=== PATIENT | male | born 1955 | race African-American/Black ===

== ENCOUNTER 2019-06-09 17:15 | Inpatient (IN) | payer MEDICARE ==
[~2019-06-09] VITALS: Ht 182.9 cm; Wt 81.6 kg
[~2019-06-09 17:15] MED LIST: CALCIUM ACETAT667 M1 PO; FOSRENOL1000 MG PO; GABAPENTIN100 MG PO; METOPROLOL TAR100 MG PO; NOVOLOG100 UNITS1 SQ; PLAVIX75 MG PO; SENSIPAR60 MG PO; ULTRAM50 MG PO
--- OUTSIDE RECORDS SUMMARY | 2019-06-09 17:54 | XMS REPORT ---
Author Author [facility] Address Unknown Phone Unavailable Care Team Providers Care Clinical Applications Manager Name Role Phone ANGELITA ESQUIVEL Unavailable Unavailable Problems This patient has no known problems. Allergies, Adverse Reactions, Alerts This patient has no known allergies or adverse reactions. Medications This patient has no known medications. Results Test Description Test Time Test Comments Text Results Atomic Results Result Comments FOOT LEFT AP LAT 2019-01-01 20:40:00 [facility] [address] [id number] Patient Name: DUONG HERNANDEZ MR #: [id number] : 1955 Age/Sex: 63/M Req #: [id number] [facility] Physician: ANGELITA ESQUIVEL MD Ordered by: SAVANNA MO DPHam Report #: [id number] Location: MED/SURG2 Room/Bed: [facility] Procedure: [id number] DX/FOOT LEFT AP LAT Exam Date: 01/01/19 Exam Time: 2024 REPORT STATUS: Signed Exam: Foot 2 views History: Postop bunionectomy Comparison: December 29, 2018 Findings: 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 Overlying cast. Impression: Postoperative change to the forefoot Signed by: Dr. Alphonse Yates M.D. on 01/01/2019 8:41 PM Dictated By: ALPHONSE YATES MD 40 Transcribed By: FELECIA on 01/01/192040 COPY TO: SAVANNA MO DPM CHEST 2 VIEWS 2018-12-31 11:23:00 [address] [address] Patient Name: DUONG HERNANDEZ MR #: [id number] : 1955 Age/Sex: 63/M Req #: [id number] Adm Physician: ANGELITA ESQUIVEL MD Ordered by: SAVANNA MO DPM Report #: [id number] Location: MED/SURG2 Room/Bed: [facility] Procedure: [id number] DX/CHEST 2 VIEWS Exam Date: Exam Time: REPORT STATUS: Signed EXAMINATION: CHEST 2 VIEWS INDICATION: Pre-operative COMPARISON: None FINDINGS: LINES/TUBES:None LUNGS:The lungs are well- inflated. No focal consolidation or pulmonary edema. PLEURA:No pleural effusion or pneumothorax. MEDIASTINUM:The cardiomediastinal silhouette appears normal in size and shape. BONES/SOFT TISSUES:No acute osseous injury. Partially visualized cervical spine fusion hardware and surgical clips in the soft tissues of the neck. Superior mediastinal cerclage wires, the upper of which is fractured at 2 sites. Surgical clips also overlie the anterior mediastinum. ABDOMEN:No free air under the diaphragm. IMPRESSION: No focal pneumonia or pulmonary edema. Signed by: Gonzalez Mahan MD on 12/31/2018 11:28 AM Dictated By: GONZALEZ MAHAN MD 27 Transcribed By: FELECIA on 12/31/181127 COPY TO: SAVANNA MO DPM FOOT LEFT AP LAT 2018-12-29 15:14:00 [facility] [address] [address] Patient Name: DUONG HERNANDEZ MR #: [id number] : 1955 Age/Sex: 63/M Req #: [id number] Adm Physician: ANGELITA ESQUIVEL MD Ordered by: ANUP ZEE MD Report #: [id number] Location: [facility] Room/Bed: [address] [address] Procedure: [id number] DX/FOOT LEFT AP LAT Exam Date: 12/29/18 Exam Time: 1455 REPORT STATUS: Signed EXAMINATION: FOOT LEFT AP LAT INDICATION: Osteomyelitis COMPARISON: None FINDINGS: No acute fracture or dislocation. There is soft tissue defect of the distal great toe with associated osteopenia of the distal phalanx. No specific radiographic evidence of osteomyelitis. Overlying gauze material obscures fine bony detail. Diffuse atherosclerotic arterial calcifications. IMPRESSION: Distal great toe soft tissue defect with underlying distal phalanx osteopenia. No specific radiographic evidence of osteomyelitis. No acute fracture or dislocation. Signed by: Gonzalez Mahan MD on 12/29/2018 3:17 PM Dictated By: GONZALEZ MAHAN MD 16 Transcribed By: FELECIA on 12/29/181516 COPY TO: ANUP ZEE MD
[2019-06-09 18:11] VITALS: BP 213/99
--- NOTE | 2019-06-09 18:24 | NUR ---
PATIENT ARRIVED TO UNIT AT 1802 VIA WHEELCHAIR. ACYANOTIC. AAOX3. NO DISTRESS NOTED. ASSISTED TO BED IN ROOM 207. SIDERAILS UP X3. CALL LIGHT IN REACH. BED LOW.
[2019-06-09] MEDS ORDERED: ONDANSETRON HCL INJ 2MG/ML 2ML 2 MG/ML VIAL IV PRN (18:45)
--- NOTE | 2019-06-09 19:20 | NUR ---
REPORT RECEIVED BY ONCOMING NURSE. PT AWAKE ALERT. ACYANOTIC. NO DISTRESS NOTED. Chinyere SPENCE NP CURRENTLY AT PATIENT'S BEDSIDE. ONCOMING NURSE TO COMPLETE ADMISSION.
--- NOTE | 2019-06-09 19:35 | NUR ---
Patient received sitting in bed. AAO x 4. Patient had no complaints of pain. Respirations even and non-labored. Admission history obtained. Initial physical assessment performed. Wound dressing noted on bilateral feet. Fall precautions implemented. Patient oriented to room, call light and plan of care. Patient instructed to call for assistance when needed. Call light within reach.
[2019-06-09 20:15] VITALS: BP 213/99
--- NOTE | 2019-06-09 20:24 | NUR ---
Alcides ([phone]) notified of patient's dialysis appointment for tomorrow. Spoke to Mona .
[2019-06-09] MEDS ORDERED: SODIUM CHLORIDE 0.9% 250ML 250 ML ONE (20:39)
[2019-06-09] MEDS: HYDROCODONE/APAP 5MG-325MG TAB PO PRN (20:48)
[2019-06-09 21:00] VITALS: BP 213/99
[2019-06-09] MEDS ORDERED: VANCOMYCIN 1GM/NS 250 ML 250 ML IV SCH (21:00)
--- NOTE | 2019-06-09 21:35 | NUR ---
Patient informed of hemodialysis scheduled for tomorrow morning. Patient verbalized understanding and voluntarily signed "Disclosure and Consent" form.
[2019-06-09 21:50] VITALS: BP 207/96
--- NOTE | 2019-06-09 22:38 | NUR ---
Patient complained of pain to his right foot not getting better after administration of [place] [address] Da Silva notified. New order received for Morphine 2 mg IV x 1.
[2019-06-09] MEDS ORDERED: MORPHINE SULFATE 2 MG/ML SYR 1ML IV ONE (22:45)
--- NOTE | 2019-06-09 22:48 | Diagnostic Imaging Report ---
Foot complete CPT code: 13060 Indication: Left foot wound with drainage ^ABSCESS, GANGRENE ^[id number] ^2200 Technique: A.P., oblique and lateral views of the left foot obtained. Comparison: Foot x-rays 12/29/2018 Findings: The area of wound was not indicated or marked. Amputation of the great toe has been performed. Osteotomy margin is at the diaphysis of the proximal phalanx. The osteotomy margin is sharp. No skin ulceration. Calcaneus is intact and normal in morphology. The midfoot is intact. No evidence of displaced fracture or dislocation involving any of the digits. Soft tissue swelling of the second and third digits. The distal tuft of the second digit is somewhat irregular on the oblique image. The distal tuft of the third digit is well corticated. Digits 4 and 5 are normal in appearance. Diffuse vascular calcifications. No radiopaque foreign bodies. IMPRESSION: 1. Status post partial amputation of the great toe. 2. Cortical irregularity of the distal tuft of the second digit with soft tissue swelling. Please correlate with area of ulceration. Osteomyelitis cannot be excluded. Signed by: Dr. Adán Santizo MD on 06/09/2019 10:45 PM
[2019-06-09] MEDS: HYDRALAZINE HCL 20 MG/ML VIAL IV PRN (22:50)
[2019-06-09] MEDS: PIPERACILLIN/TAZO 2.25 GM 50 ML IV SCH (22:50)
--- NOTE | 2019-06-09 22:52 | NUR ---
IV inserted in Right AC 20 G after numerous attempts. Patient tolerated well.
--- NOTE | 2019-06-09 22:55 | Diagnostic Imaging Report ---
Foot complete CPT code: 29491 Indication: Wound at bottom of foot with drainage ^ABSCESS, GANGRENE ^[id number] ^2200 Technique: A.P., oblique and lateral views of the right foot obtained. Comparison: None Findings: Extensive subcutaneous emphysema throughout the great toe and forefoot surrounding the second and third proximal phalanges and metatarsals. Calcaneus is intact and normal in morphology. The midfoot is intact. No evidence of displaced fracture or dislocation involving any of the digits. No periosteal new bone formation is appreciated. Focal demineralization of digits 1 and 2, if present, is difficult to visualize given the presence of subcutaneous emphysema. There is demineralization of the MTPs of digits 3 and 4 without periosteal new bone formation. No radiopaque foreign bodies in the soft tissues. Extensive vascular calcifications of the ankle and foot. There is diffuse soft tissue swelling of the ankle. IMPRESSION: 1. Subcutaneous emphysema of the forefoot, particularly surrounding the great toe. No gross radiographic evidence of osteomyelitis of digits 1 and 2. MRI is a more sensitive modality to identify small foci of osteomyelitis. 2. 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 Signed by: Dr. Adán Santizo MD on 06/09/2019 10:51 PM
--- NOTE | 2019-06-09 22:57 | Diagnostic Imaging Report ---
EXAMINATION: CHEST 2 VIEWS INDICATION: Bilateral foot wounds ^Cardiology clearance for possible surgery on Friday ^[id number] ^0 ^Y COMPARISON: Chest x-ray 12/31/2018 FINDINGS: PA and lateral views TUBES and LINES: Expandable stent has been deployed in the region of the right subclavian vein/proximal SVC. There is an expandable stent in the upper right arm, partially visualized. LUNGS: Lungs are well inflated. There is no evidence of pneumonia or pulmonary edema. PLEURA: No pleural effusion or pneumothorax. HEART AND MEDIASTINUM: The heart is normal in size. The thoracic aorta is mildly tortuous. BONES AND SOFT TISSUES: No focal osseous lesions. Surgical clips in the lower left neck are stable. Fracture sternotomy wires are stable. Partially visualized fusion plate in the lower cervical spine is intact. UPPER ABDOMEN: Unremarkable. IMPRESSION: No acute thoracic abnormality. Signed by: Dr. Adán Santizo MD on 06/09/2019 10:54 PM
--- NOTE | 2019-06-09 23:00 | NUR ---
Wound dressing performed per MD's orders. Patient tolerated well.
[2019-06-10] VITALS (8 sets, daily range): BP systolic 146–188; BP diastolic 59–88
[2019-06-10] MEDS: PIPERACILLIN/TAZO 2.25 GM 50 ML IV SCH ×4 (05:15→20:51)
[2019-06-10 05:21] LABS: BASOPHILS # (AUTO) 0.1 (0.0-0.1); BASOPHILS % 0.3 % (0.0-1.0); EOSINOPHILS # (AUTO) 0.4 (0.0-0.4); EOSINOPHILS % 1.8 % (0.0-6.0); HEMATOCRIT 23.4 % (38.2-49.6); HEMOGLOBIN 7.3 g/dL (14.0-18.0); LYMPHOCYTES % 4.8 % (18.0-39.1); MEAN CORPUSCULAR HEMOGLOBIN 28.7 pg (28-32); MEAN CORPUSCULAR HGB CONC 31.2 g/dL (31-35); MEAN CORPUSCULAR VOLUME 92.1 fL (81-99); MONOCYTES # (AUTO) 1.1 (0.2-0.8); MONOCYTES % 5.5 % (4.4-11.3); NEUTROPHILS % 86.2 % (38.7-80.0); PLATELET COUNT 274 x10e3/uL (140-360); RED BLOOD COUNT 2.54 x10e6/uL (4.3-5.7); RED CELL DISTRIBUTION WIDTH 14.1 % (11.7-14.4)
[2019-06-10 05:34] LABS: INR 1.04; PROTHROMBIN TIME 14.2 seconds (11.9-14.5)
[2019-06-10 05:35] LABS: PARTIAL THROMBOPLASTIN TIME 39.6 seconds (23.8-35.5)
[2019-06-10 05:48] LABS: ALBUMIN 2.4 g/dL (3.5-5.0); ALBUMIN/GLOBULIN RATIO 0.5 (0.8-2.0); ANION GAP 24.4 mmol/L (8-16); CALCIUM 9.7 mg/dL (8.4-10.2); CHOL/HDL RATIO 4.6 (3.9-4.7); CREATININE, SERUM 13.12 mg/dL (0.72-1.25); MAGNESIUM 2.4 MG/DL (1.3-2.1); PHOSPHORUS 5.4 MG/DL (2.3-4.7)
[2019-06-10 05:51] LABS: POTASSIUM 6.4 mmol/L (3.5-5.1)
[2019-06-10 05:56] LABS: ERYTHROCYTE SEDIMENTATION RATE 124 mm/hr (0-13)
--- NOTE | 2019-06-10 06:04 | NUR ---
Dr. Jerzy Dominguez paged regarding critical potassium value of 6.4. Awaiting call back.
[2019-06-10 06:08] LABS: THYROID STIMULATING HORMONE 6.111 uIU/mL (0.350-4.940)
--- NOTE | 2019-06-10 07:00 | NUR ---
Patient resting comfortably. Walking rounds done. Bed-side shift report given to oncoming nurse regarding patient's status.
[2019-06-10] MEDS ORDERED: CINACALCET HCL 60 MG PO SCH (07:30)
[2019-06-10] MEDS: LANTHANUM CARBONATE 1000 MG PO SCH ×3 (07:30→16:30)
--- NOTE | 2019-06-10 07:32 | NUR ---
Paged again and talked to Dr Dominguez regarding elevated potassium and other labs this morning, he said call Dialysis and tell them to Dialysis today. Casimiro Mcgrath talked to Mrs Baer to do Dialysis in as early in the morning, patient not in any distress
[2019-06-10] MEDS: INSULIN LISPRO 100 UNIT/1 ML 3ML VIAL SQ SCH ×3 (07:50→17:10)
[2019-06-10] MEDS: FAMOTIDINE 20 MG TAB PO SCH ×2 (07:55→16:58)
[2019-06-10] MEDS: CINACALCET 30 MG TAB PO SCH ×3 (08:16→17:49)
[2019-06-10] MEDS: DOCUSATE SODIUM 100 MG CAP PO SCH ×2 (08:18→16:58)
[2019-06-10] MEDS: CALCIUM ACETATE 667 MG GELCAP PO SCH ×3 (08:18→17:49)
[2019-06-10] MEDS: GABAPENTIN 100 MG CAP PO SCH ×2 (08:18→16:58)
[2019-06-10] MEDS: TRAMADOL HCL 50 MG TAB PO SCH ×2 (08:18→16:58)
[2019-06-10] MEDS: METOPROLOL TARTRATE 50 MG TAB PO SCH ×2 (08:18→16:58)
[2019-06-10] MEDS: POLYETHYLENE GLYCOL 3350 17 GM PACK PO SCH ×2 (08:18→16:59)
[2019-06-10] MEDS: ACETAMINOPHEN 325 MG TAB PO PRN (08:28)
[2019-06-10] MEDS ORDERED: NON-FORMULARY MEDICATION (Metoprolol Tartrate 100 MG) PO SCH (09:00)
[2019-06-10] MEDS ORDERED: POVIDONE IODINE 10% 120 ML BTL EXT ONE (09:00)
[2019-06-10] MEDS ORDERED: SODIUM CHLORIDE 0.9% 250ML 250 ML IV NR (09:00)
--- NOTE | 2019-06-10 09:06 | Progress Note ---
DATE: 06/10/2019 SUBJECTIVE: The patient at bedside, doing okay. Denies any history of nausea or vomiting. Does have an increased skin temperature. OBJECTIVE: VITAL SIGNS: Temperature 99.3, pulse rate 85, respirations 18, blood pressure 180/86, and O2 saturation 95%. LABORATORY DATA: Noted as a white blood cell count of 19.7, hematocrit 23.4, hemoglobin of 7.3, platelet count of 274, INR of 1.04, PT 14.2, and PTT 39.6. Potassium of 6.4. Has gangrenous changes to the right great toe, foul smell present with mottled appearance to the 2nd through 5th digits right lower extremity, positive edema. ASSESSMENT: Abscess cellulitis with equinus deformity with decreased dorsiflexion of the right foot and left foot with the knee extended, opposed to knee flexed with possible osteo. PLAN: The patient will be undergoing dialysis today. We will type and cross and give 2 units of blood today. The patient will be kept n.p.o. after midnight tonight. The patient instructed he will be taken for possible surgical intervention tomorrow morning, pending potassium levels, surgery will consist of I and D right foot with amputation of the right great toe, possible partial amputation 1st metatarsal with possible amputation of digits two through five right foot depending on intraoperative findings. The patient instructed this will be a multi staged type of surgical intervention secondary to his bad infection and poor circulatory status. No guarantees can be given. This will be a salvage type of procedure to try to salvage as much of the foot and leg is possible. The patient understands risks. CBC with diff will be reordered after the patient has 2 units of blood and dialysis. KARY Bennett/JASONL /[id number]
[2019-06-10] MEDS ORDERED: SODIUM CHLORIDE 0.9% 1000ML 2,000 ML ONE (09:37)
[2019-06-10] MEDS ORDERED: MORPHINE SULFATE 2 MG/ML SYR 1ML IV SCH (10:40)
--- NOTE | 2019-06-10 13:32 | NUR ---
Dr Baeza and Anesthesiologist had rounds they cleared him for surgery, patient not in any distress
--- NOTE | 2019-06-10 14:32 | Consultation ---
DATE OF CONSULTATION: 06/10/2019 HISTORY OF PRESENT ILLNESS: Mr. Bautista is a 63-year-old Afro-[place] gentleman with underlying history of diabetes, diabetic kidney disease, hypertension, congestive heart failure, peripheral neuropathy, diabetic end-stage kidney disease, diabetic end-organ failure with peripheral vascular disease, peripheral neuropathy, retinopathy. He has secondary hyperparathyroidism and anemia, was admitted by Dr. Da Silva for I and D of his right foot. It appears gangrenous, swollen, has a skin tear with greenish dried ulcer base which is a linear cut. Almost looks like wet gangrene to me. Renal consulted for management of kidney failure. LABORATORY DATA: Labs show hemoglobin 7.3, white count 19.7. Sodium 132, potassium 6.4, bicarb 25, creatinine 13.2, platelet 274, white count 19.7. ALLERGIES: TO HEPARIN. CURRENT MEDICATIONS: 1. Vancomycin 1 g IV q.24. 2. Piperacillin/tazobactam. 3. Insulin lispro. 4. Cinacalcet. 5. Tylenol p.r.n. 6. Calcium acetate with meals. 7. Gabapentin 100 mg b.i.d. 8. Ondansetron. 9. Docusate. 10. Metoprolol 100 mg p.o. b.i.d. SOCIAL HISTORY: He does not smoke or drink. FAMILY HISTORY: Significant for diabetes. PHYSICAL EXAMINATION: GENERAL: Awake, alert, lying supine, in no apparent distress. VITAL SIGNS: Blood pressure 180/86, pulse rate 85, afebrile. HEAD AND NECK: Cornea clear. Oral mucosa moist. LUNGS: Bibasilar rales. HEART: S1, S2 audible. ABDOMEN: Otherwise soft and nontender. No apparent visceromegaly. EXTREMITIES: Lower extremity dressing noted right foot but appears very swollen, gangrenous toes, appears inflamed with mild erythema and an ulcer. I suspect this is wet gangrene and purpura otherwise. IMPRESSION: Hyperkalemia, anemia, multifactorial for I and D tomorrow, significantly elevated white count. I will adjust vancomycin to every dialysis days. The patient may benefit from packed RBC transfusion and a stat dialysis to correct hyperkalemia. Fluid overload to be addressed on dialysis. We will place on renal diet. Strongly recommend Infectious Disease consultation. Please see orders. MD DIPAK Cerna/QUIQUE /[id number]
--- NOTE | 2019-06-10 15:18 | Consultation ---
DATE OF CONSULTATION: 06/10/2019 Cardiology Consultation CONSULTING PHYSICIAN: Romel Astudillo MD, Interventional Cardiology. REASON FOR CONSULTATION: Perioperative cardiovascular evaluation. HISTORY OF PRESENT ILLNESS: Mr. Zarate is a 63-year-old man with history of end-stage renal disease on scheduled dialysis, type 2 diabetes mellitus on insulin, hypertension, peripheral arterial disease, and history of anemia, who presents with abscess and cellulitis of the right forefoot with associated gangrenous changes of the 1st toe and pregangrenous changes of other toes. He has been evaluated by Podiatry for possible incision and drainage for source control soon. He denies any chest discomfort or shortness of breath. REVIEW OF SYSTEMS: A 12-system review negative except for as noted above. PAST MEDICAL HISTORY: As per HPI. SOCIAL HISTORY: Denies alcohol or drugs. FAMILY HISTORY: Noncontributory. PHYSICAL EXAMINATION: VITAL SIGNS: Temperature 99.3, heart rate 85, blood pressure 180/86, respiratory rate 18, and O2 saturation 95%. GENERAL: In no acute distress, alert. NECK: No JVD. CHEST: Clear to auscultation bilaterally. CARDIOVASCULAR: Regular rate and rhythm. Normal S1, S2. Systolic ejection murmur. No S3. No S4. ABDOMEN: Soft. Bowel sounds positive. EXTREMITIES: With 1+ edema, right forefoot with abscess, erythema, and gangrenous changes of the 1st toe and pregangrenous changes of other toes. Abnormal pulses. CARDIOVASCULAR MEDICATIONS: Reviewed. Metoprolol 100 mg b.i.d. STUDIES: Reviewed. Potassium 6.4, the patient is undergoing dialysis. Sodium 132, chloride 89, bicarbonate 25, BUN 75, creatinine 13.12, and glucose 388. White blood cells 19.7, hemoglobin 7.3, and platelets 274. PT 14.2, PTT 39.6, and INR 1.04. AST 17, ALT 9, alkaline phosphatase 130, and total bilirubin 0.5. ASSESSMENT AND PLAN: A 63-year-old man with end-stage renal disease, type 2 diabetes mellitus, and peripheral arterial disease, presenting with abscess and cellulitis to right foot with associated gangrene, peripheral arterial disease, hypertension, and dyslipidemia. Recommend, 1. The patient has elevated risk for adverse cardiovascular outcomes with noncardiac surgery. However, at this point in time, no unstable cardiac conditions are identified. The patient's volume status is being optimized as well as metabolic status is being optimized today with ongoing dialysis and beta-blockers have been resumed. Perioperative beta-blockers are advised. Postoperatively, consider close monitoring as needed in ICU or intermediate care and consider trending EKG and report him postoperatively. 2. We will follow closely with you. 3. Hemoglobin 7.3 as needed. Consider PRBC transfusions for worsening anemia. Thank you, Dr. Hussein for the opportunity to participate in the care of Mr. Bautista. Please call with any questions. Romel Astuidllo MD AFArt/MODL /[id number]
[2019-06-10] MEDS: VANCOMYCIN 1GM/NS 250 ML 250 ML IV SCH (19:05)
[2019-06-10 19:16] LABS: BASOPHILS # (AUTO) 0.1 (0.0-0.1); BASOPHILS % 0.3 % (0.0-1.0); EOSINOPHILS # (AUTO) 0.4 (0.0-0.4); EOSINOPHILS % 1.6 % (0.0-6.0); HEMATOCRIT 29.6 % (38.2-49.6); HEMOGLOBIN 9.6 g/dL (14.0-18.0); LYMPHOCYTES # (AUTO) 0.9 (1.0-3.2); LYMPHOCYTES % 3.7 % (18.0-39.1); MEAN CORPUSCULAR HEMOGLOBIN 28.8 pg (28-32); MEAN CORPUSCULAR HGB CONC 32.4 g/dL (31-35); MEAN CORPUSCULAR VOLUME 88.9 fL (81-99); MONOCYTES # (AUTO) 1.7 (0.2-0.8); MONOCYTES % 6.7 % (4.4-11.3); NEUTROPHILS # (AUTO) 21.4 (2.1-6.9); NEUTROPHILS % 86.3 % (38.7-80.0); PLATELET COUNT 239 x10e3/uL (140-360); RED BLOOD COUNT 3.33 x10e6/uL (4.3-5.7); RED CELL DISTRIBUTION WIDTH 15.9 % (11.7-14.4)
--- NOTE | 2019-06-10 19:22 | NUR ---
Patient received sitting up in bed. AAO x 3. Patient complained of pain to right foot (10/17). Will administer pain medication per eMAR. Bed locked and in lowest position. Bed rails up x 2. Patient instructed to call for assistance when needed. Call light within reach.
--- NOTE | 2019-06-10 19:30 | NUR ---
Patient informed of upcoming surgical procedure ----Incision and drainage of abscess; amputation of right great toe. Patient verbalized understanding and voluntarily signed "Disclosure and Consent" form.
[2019-06-10] MEDS: HYDROCODONE/APAP 5MG-325MG TAB PO PRN (19:40)
--- NOTE | 2019-06-10 20:04 | Consultation ---
DATE OF CONSULTATION: 06/10/2019 HISTORY OF PRESENT ILLNESS: This patient, who is a 63-year-old male, comes in with worsening condition of his right foot. No specific injury, but for the last 2 weeks, it has been getting progressively red and swollen and also gangrenous changes. The patient does have history of diabetes mellitus, end-stage renal disease, on hemodialysis. He has history of hypertension, , peripheral vascular disease, anemia, comes in with redness and swelling and gangrenous change of his first toe and foot. The patient is being admitted. PAST MEDICAL HISTORY: As above. PAST SURGICAL HISTORY: As above. ALLERGIES: HEPARIN. SOCIAL HISTORY: There is no smoking, drug abuse, or alcohol abuse. FAMILY HISTORY: Otherwise hypertension and diabetes. LABORATORY DATA: His white count 9.7, hemoglobin 7.3. Sodium 132, potassium 6.4. MEDICATIONS: The patient was started on Sensipar, PhosLo, insulin, tramadol, Zosyn, and vancomycin. PHYSICAL EXAMINATION: GENERAL: He is currently alert, oriented, does not seem to be in acute distress. VITAL SIGNS: Stable, currently afebrile. HEENT: He is not icteric. NECK: Supple. CHEST: Clear. HEART: S1 and S2. ABDOMEN: Soft. EXTREMITIES: There is erythema. There is edema. No skin changes. IMPRESSION: Infection of the foot, abscess with gangrene changes. Recommend surgical consultation. Vancomycin and Zosyn. Vascular workup. Adjust for kidney function. Discussed that the patient may end up with [id number] amputation. We will follow with you. Other medical problem as above. MD HOLLIS Rouse/MODL /[id number]
[2019-06-11] VITALS (9 sets, daily range): BP systolic 141–170; BP diastolic 63–85
[2019-06-11] MEDS: PIPERACILLIN/TAZO 2.25 GM 50 ML IV SCH ×4 (02:45→20:35)
[2019-06-11] MEDS: HYDROCODONE/APAP 5MG-325MG TAB PO PRN (03:25)
--- NOTE | 2019-06-11 03:26 | NUR ---
Wound culture sent to lab for analysis.
--- NOTE | 2019-06-11 04:45 | NUR ---
Patient complained of pain to right foot despite administration of [place] 5mg. Mary Glover (BUSINESS DEVELOPMENT ANALYST) notified. New order received for Morphine 1 mg Q4H PRN.
[2019-06-11] MEDS: MORPHINE SULFATE 2 MG/ML SYR 1ML IV PRN ×3 (05:39→22:40)
--- NOTE | 2019-06-11 07:00 | NUR ---
Shift report given to oncoming nurse.
--- NOTE | 2019-06-11 07:25 | NUR ---
QUALITY SYSTEM MANAGER AT BEDSIDE. WAITING FOR DR. MO RESPONSE.
[2019-06-11] MEDS: INSULIN LISPRO 100 UNIT/1 ML 3ML VIAL SQ SCH ×3 (07:30→16:30)
[2019-06-11] MEDS: LANTHANUM CARBONATE 1000 MG PO SCH ×3 (07:30→16:13)
--- NOTE | 2019-06-11 07:30 | NUR ---
PAGED DR. MO REGARDING PROCEDURE TODAY. PT ALSO HAS DIALYSIS TODAY. WAITING FOR THE RESPONSE FROM THE
--- NOTE | 2019-06-11 07:45 | NUR ---
DIALYSIS BEFORE PROCEDURE PER DR. MO. INFORMED THE SAME TO STORE FACILITY TECHNICIAN.
[2019-06-11 08:28] LABS: ANION GAP 22.7 mmol/L (8-16); CREATININE, SERUM 8.45 mg/dL (0.72-1.25); POTASSIUM 5.7 mmol/L (3.5-5.1)
[2019-06-11] MEDS: FAMOTIDINE 20 MG TAB PO SCH ×2 (08:30→16:30)
[2019-06-11] MEDS: CINACALCET 30 MG TAB PO SCH ×3 (08:30→16:30)
--- NOTE | 2019-06-11 08:30 | NUR ---
PER REVERBERATORY FURNACE SUPERVISOR NO DIALYSIS TODAY PER DR. CHENG.
[2019-06-11] MEDS: METOPROLOL TARTRATE 50 MG TAB PO SCH ×2 (08:35→17:00)
--- NOTE | 2019-06-11 08:40 | NUR ---
GIVE BREAKFAST THEN BACK TO NPO PER DR. MO
--- NOTE | 2019-06-11 08:45 | NUR ---
PAGED DR. CHENG AND UPDATED THE K LEVEL 5.7. DR. CHENG SAID PT NEED DIALYSIS TODAY. PAGED INTERNATIONAL TRADE TEACHER AND INFORMED THE SAME. INFORMED THE UPDATE TO DR. MO ALSO.
--- NOTE | 2019-06-11 08:59 | NUR ---
PER OPERATIONS OFFICER [facility] WILL START DIALYSIS AT 02.06. PAGED DR. MO AND UPDATED THE SAME.
[2019-06-11] MEDS: POLYETHYLENE GLYCOL 3350 17 GM PACK PO SCH ×2 (09:00→17:00)
[2019-06-11] MEDS: CALCIUM ACETATE 667 MG GELCAP PO SCH ×3 (09:00→17:00)
[2019-06-11] MEDS: TRAMADOL HCL 50 MG TAB PO SCH ×2 (09:00→17:00)
--- NOTE | 2019-06-11 09:30 | NUR ---
PT REFUSED INSULIN.
[2019-06-11] MEDS: GABAPENTIN 100 MG CAP PO SCH ×2 (09:48→17:00)
[2019-06-11] MEDS: DOCUSATE SODIUM 100 MG CAP PO SCH ×2 (09:48→17:00)
--- NOTE | 2019-06-11 12:00 | NUR ---
OUTPATIENT COORDINATOR AT BEDSIDE.
[2019-06-11] MEDS ORDERED: SODIUM CHLORIDE 0.9% 1000ML 2,000 ML ONE (12:19)
[2019-06-11] MEDS ORDERED: PROPOFOL IV EMULSION 10 MG/ML 20 ML VIAL ONE (14:12)
[2019-06-11] MEDS ORDERED: LIDOCAINE HCL 2% LOCAL INJ 5 ML SDV VIAL INJ ONE (14:12)
--- NOTE | 2019-06-11 15:45 | NUR ---
OBTAIN MEDICAL RECORDS PER DR. HAGER. FAX TO [facility] BY .
--- NOTE | 2019-06-11 16:05 | NUR ---
PAGED OR AND INFORMED PT BLOOD SUGAR 211.
--- NOTE | 2019-06-11 16:08 | NUR ---
DIALYSIS COMPLETED. 1 L REMOVED PER THE CARD READER.
--- NOTE | 2019-06-11 16:10 | NUR ---
DIALYSIS COMPLETED. NO VANCOMYCIN NEEDED TODAY AFTER DIALYSIS PER BEBE REYES.
--- NOTE | 2019-06-11 16:16 | NUR ---
Nutrition Screen Note RD Recommendation for Physician: - Resume Renal/diabetic diet with Nepro when medically appropriate Plan of Care: RD following, monitoring for tolerance and adequacy Nutrition reason for involvement: Nutrition Risk Trigger - MST 2 Primary Diagnose(s): abscess, gangrene, PAD PMH: diabetes, ESRD, HTN, PVD, anemia Ht: 72 in Wt:180 lb BMI: 24.4 kg/m2 IBW:[address] Assessment: (06/11/19) Chart reviewed. Labs and meds reviewed. Pt is a 63 year old male admitted with abscess, gangrene, and PAD. Pt reports he has a fair appetite and has been eating about 50% of his meals for the past 2 weeks. It is recorded that pt consumed 75% of dinner yesterday. Pt is currently NPO for a procedure and was previously on a renal/diabetic diet with Nepro. Pt reports he had weighed 192 lbs 2 weeks ago. Pt currently has a weight of 180 lbs in chart. It is noted that pt has edema. No N/V or chewing/swallowing issues. Will continue to monitor Current Diet: NPO Malnutrition Evaluation (06/11/19) The patient does not meet criteria for a specified degree of malnutrition at this time. Will re-evaluate at follow-up as appropriate. Diet Education Needs Assessment: Pt was interested in renal and diabetic diet education materials. Pt was not interested in verbal education at time of visit and stated he will read provide materials at a later time. Encouraged pt to contact RD if he has questions. Nutrition Care Level: low Signed: Ada Etienne, RD, LD
--- NOTE | 2019-06-11 17:15 | NUR ---
PT OFF UNIT FOR PROCEDURE IN SAFE CONDITION
[2019-06-11 17:20] LABS: BASOPHILS # (AUTO) 0.1 (0.0-0.1); BASOPHILS % 0.4 % (0.0-1.0); EOSINOPHILS # (AUTO) 0.5 (0.0-0.4); EOSINOPHILS % 2.1 % (0.0-6.0); HEMATOCRIT 36.4 % (38.2-49.6); HEMOGLOBIN 10.7 g/dL (14.0-18.0); LYMPHOCYTES % 4.2 % (18.0-39.1); MEAN CORPUSCULAR HEMOGLOBIN 28.3 pg (28-32); MEAN CORPUSCULAR HGB CONC 29.4 g/dL (31-35); MEAN CORPUSCULAR VOLUME 96.3 fL (81-99); MONOCYTES # (AUTO) 1.7 (0.2-0.8); MONOCYTES % 6.8 % (4.4-11.3); NEUTROPHILS # (AUTO) 20.9 (2.1-6.9); NEUTROPHILS % 85.4 % (38.7-80.0); PLATELET COUNT 215 x10e3/uL (140-360); RED BLOOD COUNT 3.78 x10e6/uL (4.3-5.7); RED CELL DISTRIBUTION WIDTH 16.4 % (11.7-14.4)
[2019-06-11 17:35] LABS: INR 1.05; PROTHROMBIN TIME 14.4 seconds (11.9-14.5)
[2019-06-11 17:37] LABS: ANION GAP 23.4 mmol/L (8-16); CALCIUM 8.9 mg/dL (8.4-10.2); CREATININE, SERUM 5.03 mg/dL (0.72-1.25); POTASSIUM 4.4 mmol/L (3.5-5.1)
[2019-06-11] MEDS ORDERED: BETAMETHASONE DISODIUM PHOS 6 MG/ML VIAL ONE (17:54)
[2019-06-11] MEDS ORDERED: BUPIVACAINE HCL 0.5% INJ 30 ML VIAL INJ ONE (17:54)
[2019-06-11] MEDS ORDERED: MUPIROCIN 2% OINT 22 GM TUBE ONE (17:54)
[2019-06-11] MEDS ORDERED: LIDOCAINE HCL 1% LOCAL INJ 20 ML VIAL ONE (17:54)
[2019-06-11] MEDS ORDERED: BACITRACIN 50,000 UNIT VIAL ONE (17:55)
[2019-06-11] MEDS ORDERED: SODIUM CHLORIDE 0.9% 500ML 500 ML ONE (17:58)
[2019-06-11] MEDS ORDERED: FENTANYL CITRATE/PF 100MCG/2 ML INJ ONE (18:01)
[2019-06-11] MEDS ORDERED: MIDAZOLAM HCL 2 MG/2 ML VIAL ONE (18:01)
--- NOTE | 2019-06-11 18:58 | NUR ---
SHIFT REPORT GIVEN TO THE FORENSIC ACCOUNTANT RN. PT OFF UNIT FOR PROCEDURE.
[2019-06-11] MEDS ORDERED: HYDRALAZINE HCL 20 MG/ML VIAL ONE (19:25)
--- NOTE | 2019-06-11 19:43 | Progress Note ---
DATE: 06/11/2019 SUBJECTIVE: Denies any chest pain or shortness of breath today. Discussed arterial Doppler ultrasound findings and plan of care. Answered all questions and concerns. OBJECTIVE: VITAL SIGNS: Temperature 98.4, heart rate 70, blood pressure 159/82, respiratory rate 19, O2 saturation 97%. GENERAL: In no acute distress, alert. NECK: No JVD. CHEST: Clear to auscultation. CARDIOVASCULAR: Regular rate and rhythm. Normal S1 and S2. No S3 or S4. Systolic ejection murmur 1/6. ABDOMEN: Soft. Bowel sounds Positive. EXTREMITIES: 1+ edema to lower extremities. Right foot with gangrenous changes and foul smelling wound with purulent secretion. Dressings in place. MEDICATIONS: Reviewed. Vancomycin and Zosyn, metoprolol tartrate 100 mg b.i.d. STUDIES: Reviewed. Sodium 136, potassium 5.7, chloride pending, repeat dialysis today, chloride 94, bicarbonate 25, BUN 46, creatinine 8.4, glucose 221. White blood cells 24.7, hemoglobin 9.6, platelets 239,000. INR 1.04, PTT 14.2, PTT 39.6. AST 17, ALT 9, alkaline phosphatase 130, total bilirubin 0.5. ASSESSMENT AND PLAN: A 63-year-old man with critical limb ischemia and abscess and cellulitis with gangrene to right foot and presents for limb salvage incision and drainage. He has peripheral vascular disease and today reports he had a recent outpatient revascularization [facility]. The patient has anemia, preserved left ventricular systolic function on echocardiogram, diabetes, hypertension. He has moderate risk for adverse cardiovascular outcomes with noncardiac surgery. The patient would benefit from surgery for infection source control and for limb salvage at this point. Beta-beba perioperatively is initiated and advised. Volume optimization and metabolic/electrolyte optimization per Nephrology expertise. Limb and overall prognosis remains guarded. Requested report from recent angiogram performed as outpatient. There is no evidence of DVT on lower extremities on ultrasound. There is findings suggestive of outflow disease to both lower extremities based on monophasic waveforms, AT and posterior tibial with segment of occlusion of posterior tibial on the left. Romel Astudillo MD AFV/MODL /[id number] MTDJeanne
--- NOTE | 2019-06-11 19:55 | NUR ---
Patient received from PACU via stretcher. Patient had no complaints of pain. Respirations even and non-labored. Post-surgical dressing to right foot in place. Patient in stable condition. Safety measures in place. Call light within reach.
--- NOTE | 2019-06-11 19:58 | Operative Report ---
DATE OF PROCEDURE: 06/11/2019 SURGEON: Warren Da Silva DPM PREOPERATIVE DIAGNOSIS: Grade 4 ulcer, gangrene, abscess, osteomyelitis, right foot. POSTOPERATIVE DIAGNOSES: Confirmed. OPERATIVE PROCEDURES: 1. Extensive incision and drainage to multiple areas of the right foot down to bone. 2. Amputation, right great toe. 3. Amputation 2nd toe of the right foot. 4. Amputation, 3rd toe of the right foot. 5. Amputation 4th toe of the right foot. 6. Amputation 5th toe of the right foot. ANESTHESIA: Local with IV sedation. HEMOSTASIS: None. PROCEDURE IN DETAIL: The patient was taken to the operating room and placed on the operative table in supine position. Following induction of MAC anesthesia per the anesthesiologist, the right lower extremity was then prepped and draped in the usual aseptic manner and following procedures were then performed: Procedure #1 I and D, right foot. Attention was directed to the dorsal aspect of the 1st metatarsophalangeal joint, where a racquet-shaped incision was performed. Deep abscess was encountered and cultured for aerobic and anaerobic growth. Necrotizing fasciitis-type of infection was encountered. The infection was then carried all the way to multiple areas both dorsally and plantarly all the way down the lateral aspect of the right foot down to the calcaneocuboid joint. Severe abscess with multiple pockets was encountered and cultured. Most of the necrotic tissue was then surgically excised down to bone via sharp and blunt dissection. Procedures 2, 3, 4, 5, and 6: Amputation of digits 1st, 2nd, 3rd, 4th and 5th digits of the right foot. Attention was then directed to the above-mentioned toes overlying the proximal interphalangeal joints, where racquet-shaped incisions were performed. Toes were disarticulated and sent for pathological analysis. More infection was noted to the plantar flap. Utilizing a curved hemostat, multiple pockets were also encountered with foul smell present. At this point, some bleeding was achieved and utilizing a Pulsavac utilizing 50,000 units of bacitracin. The areas were then copiously flushed and Pulsavac. Then, approximately 15 to 20 mL of 0.5% plain Marcaine plus 10 mL of 1% Xylocaine plain were used to achieve local anesthesia of the above-mentioned surgical area. Sterile dressing was applied. The patient was then transferred from the OR to recovery room with vital signs stable. The patient will remain in the hospital and getting IV antibiotics. We will see how his foot does. If not responsive, the patient will end up needing a zinvn-xvc-kzkh amputation. If he starts getting some granulation tissue as a salvage type of procedure, he may have a Chopart amputation with rotational flap closure depending on how he responds from the extensive I and D and amputation of all toes. Blood loss from the surgery was minimal. No complications were encountered. KARY Bennett/JASONL /[id number]
--- NOTE | 2019-06-11 20:17 | Diagnostic Imaging Report ---
FOOT RIGHT AP LAT - Multiple views HISTORY: ^s/p SURGERY ^[id number] ^1919 ^Y COMPARISON: Multiple prior foot x-ray examinations most recent dated 06/09/2019. FINDINGS: Status post amputation at the level of first through fifth metatarsophalangeal joints with overlying dressing material seen. There are faint lucencies seen at the tip of fourth through fifth metatarsal which could be artifact secondary to overlying dressing material or osteomyelitis. Degenerative changes are seen in the remaining of the joints. IMPRESSION: 1. Status post amputation at the level of first through fifth metatarsophalangeal joints. 2. Faint lucencies seen at the tip of fourth through fifth metatarsal which could be artifact secondary to overlying dressing material or osteomyelitis. Signed by: Ry Arellano MD on 06/11/2019 8:13 PM
[2019-06-11] MEDS: ATORVASTATIN 40 MG TAB PO SCH (20:35)
[2019-06-12] VITALS (8 sets, daily range): BP systolic 106–156; BP diastolic 56–71
[2019-06-12] MEDS: PIPERACILLIN/TAZO 2.25 GM 50 ML IV SCH ×4 (02:00→20:57)
[2019-06-12] MEDS: MORPHINE SULFATE 2 MG/ML SYR 1ML IV PRN (03:05)
--- NOTE | 2019-06-12 03:10 | NUR ---
Patient in a lot of pain (/) s/p surgical procedure. Morphine 1 mg not effective for patient's pain. Dr. Da Silva paged. Awaiting call back.
[2019-06-12] MEDS: HYDROCODONE/APAP 5MG-325MG TAB PO PRN (03:22)
--- NOTE | 2019-06-12 03:31 | NUR ---
Panchito Diego ([facility]) paged regarding patient's pain (12/17) to right foot . New orders received for Dilaudid 0.5 mg IV Q4H PRN. Orders received to discontinue Morphine 1 mg IV Q4H PRN and [place] 5mg /325 mg Q6H PRN.
[2019-06-12] MEDS: HYDROMORPHONE 1MG/1ML INJ IV PRN ×2 (04:15→12:26)
--- NOTE | 2019-06-12 04:17 | NUR ---
Dr. Orourke ( covering for ) called back. informed that order for stronger pain medication was received from [facility]man ([facility]). No new order received at this time.
[2019-06-12 05:39] LABS: BASOPHILS # (AUTO) 0.1 (0.0-0.1); BASOPHILS % 0.2 % (0.0-1.0); EOSINOPHILS # (AUTO) 0.5 (0.0-0.4); EOSINOPHILS % 2.1 % (0.0-6.0); HEMATOCRIT 26.1 % (38.2-49.6); LYMPHOCYTES # (AUTO) 1.2 (1.0-3.2); LYMPHOCYTES % 5.2 % (18.0-39.1); MEAN CORPUSCULAR HEMOGLOBIN 28.3 pg (28-32); MEAN CORPUSCULAR HGB CONC 30.7 g/dL (31-35); MEAN CORPUSCULAR VOLUME 92.2 fL (81-99); MONOCYTES # (AUTO) 1.7 (0.2-0.8); MONOCYTES % 7.5 % (4.4-11.3); NEUTROPHILS # (AUTO) 19.1 (2.1-6.9); NEUTROPHILS % 83.9 % (38.7-80.0); PLATELET COUNT 273 x10e3/uL (140-360); RED BLOOD COUNT 2.83 x10e6/uL (4.3-5.7)
[2019-06-12 05:58] LABS: CALCIUM 8.3 mg/dL (8.4-10.2); CREATININE, SERUM 6.24 mg/dL (0.72-1.25)
--- NOTE | 2019-06-12 06:57 | NUR ---
Bedside report given to oncoming nurse.
--- NOTE | 2019-06-12 07:00 | NUR ---
BEDSIDE SHIFT REPORT RECEIVED FROM THE LANDFILL GAS COLLECTION OPERATOR RN. PT HAS ACTIVE BLEEDING ON RIGHT FOOT SURGERY DONE YESTERDAY EVENING. DRESSING SOILED WITH BRIGHT RED BLOOD. DRESSING REINFORCED WITH GAUZE AND WRAPPED WITH KERLIX. PAGED DR. MO REGARDING THE SAME. WAITING FOR THE RESPONSE FROM THE DR. PT DENIES NEEDS AT THIS TIME.
--- NOTE | 2019-06-12 07:15 | NUR ---
RIGHT FOOT ELEVATED WITH PILLOWS. DRESSING CDI.
[2019-06-12] MEDS: LANTHANUM CARBONATE 1000 MG PO SCH ×3 (07:30→16:28)
--- NOTE | 2019-06-12 07:30 | NUR ---
RECHECKED THE DRESSING. NO BLEEDING NOTED AT THIS TIME.
--- NOTE | 2019-06-12 08:00 | NUR ---
WALKING ROUNDS MADE. PT IS AAOX4. NO BLEEDING NOTED AT SURGICAL DRESSING. CDI.
[2019-06-12] MEDS: CALCIUM ACETATE 667 MG GELCAP PO SCH ×3 (08:30→17:26)
[2019-06-12] MEDS: CINACALCET 30 MG TAB PO SCH ×3 (08:30→17:26)
[2019-06-12] MEDS: FAMOTIDINE 20 MG TAB PO SCH ×2 (08:30→17:26)
[2019-06-12] MEDS: INSULIN LISPRO 100 UNIT/1 ML 3ML VIAL SQ SCH ×6 (08:30→21:34)
[2019-06-12] MEDS ORDERED: ATORVASTATIN 20 MG TAB PO SCH (09:00)
[2019-06-12] MEDS: METOPROLOL TARTRATE 50 MG TAB PO SCH ×2 (09:00→17:26)
[2019-06-12] MEDS: DOCUSATE SODIUM 100 MG CAP PO SCH ×2 (09:32→17:26)
[2019-06-12] MEDS: POLYETHYLENE GLYCOL 3350 17 GM PACK PO SCH ×2 (09:32→17:26)
[2019-06-12] MEDS: GABAPENTIN 100 MG CAP PO SCH ×2 (09:32→17:26)
[2019-06-12] MEDS: TRAMADOL HCL 50 MG TAB PO SCH (09:33)
[2019-06-12] MEDS ORDERED: SODIUM CHLORIDE 0.9% 1000ML 2,000 ML ONE (10:48)
--- NOTE | 2019-06-12 11:00 | NUR ---
CHLOE INTEGRATED SPECIALIST AT BEDSIDE. RIGHT FOOT BLEEDING AFTER SX INFORMED CHLOE. DRESSING REMOVED BY CHLOE. REINFORCED DRESSING WITH GAUZE AND KERLIX ELEVATED WITH PILLOWS. PT DENIED FURTHER NEEDS.
--- NOTE | 2019-06-12 11:30 | NUR ---
GAMING INVESTIGATOR AT BEDSIDE.
[2019-06-12] MEDS: HYDROCODONE/APAP 7.5MG-325MG 1 EA TAB PO PRN (13:48)
--- NOTE | 2019-06-12 15:00 | NUR ---
DIALYSIS COMPLETED. 225 ML FLUIDS REMOVED PER THE URBAN DESIGN CONSULTANT.
[2019-06-12] MEDS: VANCOMYCIN 1GM/NS 250 ML 250 ML IV SCH (16:28)
--- NOTE | 2019-06-12 17:00 | NUR ---
WALKING ROUNDS PERFORMED. RIGHT FOOT DRESSING CDI. PT DENIES NEEDS AT THIS TIME.
[2019-06-12] MEDS ORDERED: HYDROMORPHONE 1MG/1ML INJ IV NR (18:00)
--- NOTE | 2019-06-12 19:06 | NUR ---
BEDSIDE REPORT RECEIVED FROM DAY RN. PT HAD DIALYSIS TODAY. PT ALERT AND ORIENTED X2-3. TELE ON. PT HAD DIALYSIS TODAY. DIALYSIS DAYS ARE FRIDAY,FRIDAY, AND FRIDAY. RT AV FISTULA IN RT ARM DRY AND INTACT. THRILL PRESENT. LT ARM 20 G SL INTACT WITH HEALTHY SITE. RT FOOT DRESSING DRY AND INTACT. RT FOOT ELEVATED ON PILLOW. LEFT GREAT TOE HX AMPUTATION IN PAST. VANCOMYCIN GIVEN ORDERED ON DAYS AFTER DIALYSIS. CALL LIGHT WITHIN REACH. BED IN LOW POSITION.HOB ELEVATED. PT ASSISTED WITH PO- ARMS WEAK.ACCUCHECK AC AND HS.
--- NOTE | 2019-06-12 19:15 | NUR ---
BEDSIDE SHIFT REPORT GIVEN TO THE JAVA SWING DEVELOPER RN. PT DENIED FURTHER NEEDS.
--- NOTE | 2019-06-12 21:02 | Progress Note ---
DATE: 06/12/2019 Cardiology Progress Note SUBJECTIVE: In pain, postoperative of right TMA. OBJECTIVE: VITAL SIGNS: Temperature 99.9, heart rate 72, blood pressure 133/66, respiratory rate 16, and O2 saturation 100%. GENERAL: In acute distress related to pain, alert. NECK: No JVD. CHEST: Clear to auscultation. CARDIOVASCULAR: Regular rate and rhythm. Normal S1 and S2. Systolic ejection murmur. No S3 or S4. ABDOMEN: Soft. Bowel sounds positive. EXTREMITIES: Right foot is covered with dressing, edema 1+. CARDIOVASCULAR MEDICATIONS: Reviewed, atorvastatin 40 mg at bedtime and metoprolol tartrate 100 mg b.i.d. STUDIES: Reviewed. Potassium 5, bicarbonate 23, creatinine 6.24, glucose 188. White blood cells 22.7, trending down; hemoglobin 8; platelets 273. INR 1.05. ASSESSMENT: A 63-year-old man with peripheral vascular disease, coronary artery disease, chronic diastolic heart failure, anemia, hypertension, dyslipidemia, diabetes, and end-stage renal disease, presents with abscess and gangrene to right forefoot, now status post right transmetatarsal amputation. RECOMMENDATIONS: 1. Reviewed records from [facility] as well as labs and medications. Discussed plan of care with the patient. 2. The patient underwent recent drug-eluting stent PCI to proximal LAD per report from [facility] on 04/29/2019, therefore he is at elevated risk for stent thrombosis and related risk for and NV, worsening condition, heart failure. He will return now resuming antiplatelet therapy. I have therefore instructed aspirin be given 81 mg daily starting today and continuing daily and clopidogrel 75 mg daily to be added starting tomorrow a.m. given active bleeding at the stump site, for which additional hemostatic dressing application is being added this day. 3. Continue beta-beba and statin. 4. Regarding lower extremity angiogram report from [facility], the patient has severe frdyz-zhb-bwkf vessel disease bilaterally per documentation from [facility] the assessment of nonrevascularizable by surgical or endovascular means according to report from [facility]. We will discuss this further with the patient. Overall, prognosis is guarded. The patient has elevated risk for proceeding with right BKA depending on wound healing. We will wait and assess response to antibiotic therapy. MD LEX Toth/MODL /[id number] MTDD
[2019-06-12] MEDS: ATORVASTATIN 40 MG TAB PO SCH (21:21)
[2019-06-12] MEDS: ASPIRIN 81 MG CHEW TAB PO SCH (21:21)
[2019-06-13] VITALS (9 sets, daily range): BP systolic 123–154; BP diastolic 61–78
[2019-06-13] MEDS: ACETAMINOPHEN 325 MG TAB PO PRN (01:09)
[2019-06-13] MEDS: PIPERACILLIN/TAZO 2.25 GM 50 ML IV SCH ×4 (03:28→20:10)
[2019-06-13 05:54] LABS: BASOPHILS # (AUTO) 0.1 (0.0-0.1); BASOPHILS % 0.2 % (0.0-1.0); EOSINOPHILS # (AUTO) 0.3 (0.0-0.4); EOSINOPHILS % 1.6 % (0.0-6.0); HEMATOCRIT 26.9 % (38.2-49.6); HEMOGLOBIN 8.1 g/dL (14.0-18.0); LYMPHOCYTES # (AUTO) 1.2 (1.0-3.2); LYMPHOCYTES % 5.9 % (18.0-39.1); MEAN CORPUSCULAR HEMOGLOBIN 28.2 pg (28-32); MEAN CORPUSCULAR HGB CONC 30.1 g/dL (31-35); MEAN CORPUSCULAR VOLUME 93.7 fL (81-99); MONOCYTES # (AUTO) 1.9 (0.2-0.8); MONOCYTES % 9.2 % (4.4-11.3); NEUTROPHILS # (AUTO) 16.9 (2.1-6.9); NEUTROPHILS % 81.6 % (38.7-80.0); PLATELET COUNT 272 x10e3/uL (140-360); RED BLOOD COUNT 2.87 x10e6/uL (4.3-5.7); RED CELL DISTRIBUTION WIDTH 15.7 % (11.7-14.4)
[2019-06-13 05:59] LABS: ANION GAP 19.5 mmol/L (8-16); CALCIUM 8.1 mg/dL (8.4-10.2); CREATININE, SERUM 6.76 mg/dL (0.72-1.25); MAGNESIUM 2.1 MG/DL (1.3-2.1); POTASSIUM 4.5 mmol/L (3.5-5.1)
[2019-06-13] MEDS: LANTHANUM CARBONATE 1000 MG PO SCH ×3 (07:30→15:59)
[2019-06-13] MEDS: INSULIN LISPRO 100 UNIT/1 ML 3ML VIAL SQ SCH ×7 (07:30→19:53)
[2019-06-13] MEDS: ASPIRIN 81 MG CHEW TAB PO SCH (07:56)
[2019-06-13] MEDS: DOCUSATE SODIUM 100 MG CAP PO SCH ×2 (07:56→16:49)
[2019-06-13] MEDS: GABAPENTIN 100 MG CAP PO SCH ×2 (07:57→16:50)
[2019-06-13] MEDS: METOPROLOL TARTRATE 50 MG TAB PO SCH ×2 (07:57→17:06)
[2019-06-13] MEDS: CALCIUM ACETATE 667 MG GELCAP PO SCH ×3 (07:58→16:50)
[2019-06-13] MEDS: CLOPIDOGREL BISULFATE 75 MG TAB PO SCH (07:58)
[2019-06-13] MEDS: HYDROCODONE/APAP 7.5MG-325MG 1 EA TAB PO PRN ×3 (07:59→14:19)
--- NOTE | 2019-06-13 08:00 | NUR ---
PT WANTED TO SIT ON THE BS COMMOD, TWO NURSES ASSISTED PT TO COMMOD, PT VERY WEAK AND C/O SEVERE PAIN, ASSISTED PT BACK TO BED, INFORMED PT TO CALL WHEN NEEDS ASSISTANCE AND WILL GIVE PT A BED VAN, PT VERBALIZED UNDERSTANDING
[2019-06-13] MEDS: POLYETHYLENE GLYCOL 3350 17 GM PACK PO SCH ×3 (08:01→17:00)
[2019-06-13] MEDS: FAMOTIDINE 20 MG TAB PO SCH ×2 (08:28→16:49)
[2019-06-13] MEDS: CINACALCET 30 MG TAB PO SCH ×3 (08:28→16:49)
[2019-06-13] MEDS: HYDROMORPHONE 1MG/1ML INJ IV PRN (11:47)
--- NOTE | 2019-06-13 15:29 | Progress Note ---
DATE: 06/13/2019 SUBJECTIVE: The patient has a history of debridement to the lower extremity. He came in with the worsening of his right foot, nonspecific injury, but it has been getting progressively red, hot, and swollen. He is on hemodialysis. His white blood count is trending down, the highest was 24.48, it is now 20.66. His culture and sensitivity of the right is positive for Proteus vulgaris, enterococcus, and gram-negative rods. He is currently on Zosyn. This is sensitive to erythema and edema with purulent drainage to the area. Negative Homans sign. Protective threshold is absent. ASSESSMENT: 1. Status post debridement to the right with TMA. 2. Peripheral vascular disease. 3. Cellulitis. 4. Gangrene, right forefoot. PLAN: At this point, continue local wound care. Continue IV antibiotics pending on response to the IV antibiotic and the wound care. He may need further debridement and amputation. He is aware of this. The prognosis is guarded and we will continue to follow. KARY Lee/QUIQUE /[id number]
--- NOTE | 2019-06-13 16:00 | NUR ---
PT STATED HIS DRESSING TO HIS RIGHT FOOT WAS CHANGED THIS MORNING, SMALL AMOUNT OF DRAINAGE NOTED FROM OUTER RIGHT FOOT,
--- NOTE | 2019-06-13 18:50 | NUR ---
1850 PT RESTING IN BED, NO SIGN OF ACUTE DISTRESS NOTED, BEDSIDE REPORT AND CARE TO ZENON ALMONTE
--- NOTE | 2019-06-13 19:10 | NUR ---
Patient visited in room during nursing rounds. Patient alert and oriented x3. On bedrest at this time. S/P Amputation of right great toe on 06/11/19. Whole right foot covered with surgical dressing and wrapped with kerlix. Dressing clean and dry. Pt has intermittent pain on right foot and is being medicated accordingly. Right upper AV graft noted for scheduled hemodialysis (next schedule on 06/14/19 in AM). Last BM on 06/06/19 and pt on scheduled stool softeners. Call garza within reach. Will monitor pt closely.
[2019-06-13] MEDS: ATORVASTATIN 40 MG TAB PO SCH (20:00)
--- NOTE | 2019-06-13 23:40 | Progress Note ---
DATE: 06/13/2019 Cardiology Progress Note SUBJECTIVE: Shimon denies any chest pain or shortness of breath. His right residual foot pain is better controlled today. He has otherwise no complaints. Discussed the left plan of care with the patient and answered questions. Time spent counseling the patient fijw-fc-gztn over 30 minutes. OBJECTIVE: VITAL SIGNS: Temperature 97.8, heart rate 62, blood pressure 123/61, respiratory rate 20, O2 saturation 99%. GENERAL: In no acute distress, alert. NECK: No JVD. CHEST: Clear to auscultation. CARDIOVASCULAR: Regular rate and rhythm. Normal S1 and S2. ABDOMEN: Soft. Bowel sounds positive. EXTREMITIES: Trace edema, overall improved. Right foot wound covered with dressings, status post TMA. Left foot covered with dressings. CARDIOVASCULAR MEDICATIONS: Reviewed. Clopidogrel 75 mg daily, hydralazine p.r.n., atorvastatin 40 mg at bedtime, aspirin 81 mg daily, metoprolol tartrate 100 mg b.i.d. STUDIES: Reviewed. Potassium 4.5, bicarbonate of 26, creatinine 6.7, glucose 267. White blood cells 20.6, trending down; hemoglobin 8.1; and platelets 272. ASSESSMENT AND PLAN: 1. A 63-year-old man with end-stage renal disease, vasculopath, chronic diastolic heart failure, hypertension, diabetes, dyslipidemia, severe peripheral arterial disease with abscess and cellulitis to the right foot, now status post incision and drainage and amputation of digits, undergoing follow closely by Podiatry. On exam today, still with foul smell from the foot. Assess response to antibiotic therapy and defer further decisions on additional source control surgery to Podiatry expertise. From a vascular standpoint, the patient had recent evaluation at [facility] in April and reportedly had severe disease, nonrevascularizable endovascular or surgical approach. The patient also has undergone recent drug-eluting stent PCI of proximal LAD in April 2019, which dual antiplatelet therapy has been reinstituted and he is advised to continue uninterrupted as much as possible. Monitor H and H closely. 2. Continue beta-beba. 3. Continue statin. 4. His foot and overall prognosis remains guarded. High risk to proceed with further amputation. Romel Astudillo MD AFV/JASONL /[id number]
[2019-06-14] VITALS (8 sets, daily range): BP systolic 108–156; BP diastolic 57–72
[2019-06-14] MEDS: PIPERACILLIN/TAZO 2.25 GM 50 ML IV SCH ×4 (02:30→20:09)
[2019-06-14] MEDS: POLYETHYLENE GLYCOL 3350 17 GM PACK PO SCH ×2 (02:40→17:03)
[2019-06-14] MEDS: DOCUSATE SODIUM 100 MG CAP PO SCH ×2 (02:40→17:02)
--- NOTE | 2019-06-14 02:40 | NUR ---
Per pt request, pt given early doses of Colace 100mg PO and Miralax 17gm (mixed with water). Pt passing gas but no bowel movement at this time.
[2019-06-14 06:39] LABS: BASOPHILS # (AUTO) 0.1 (0.0-0.1); BASOPHILS % 0.3 % (0.0-1.0); EOSINOPHILS # (AUTO) 0.2 (0.0-0.4); EOSINOPHILS % 0.9 % (0.0-6.0); HEMATOCRIT 26.1 % (38.2-49.6); HEMOGLOBIN 7.9 g/dL (14.0-18.0); LYMPHOCYTES # (AUTO) 0.9 (1.0-3.2); LYMPHOCYTES % 3.9 % (18.0-39.1); MEAN CORPUSCULAR HEMOGLOBIN 28.2 pg (28-32); MEAN CORPUSCULAR HGB CONC 30.3 g/dL (31-35); MEAN CORPUSCULAR VOLUME 93.2 fL (81-99); MONOCYTES # (AUTO) 1.5 (0.2-0.8); MONOCYTES % 6.3 % (4.4-11.3); NEUTROPHILS # (AUTO) 21.2 (2.1-6.9); NEUTROPHILS % 87.1 % (38.7-80.0); PLATELET COUNT 304 x10e3/uL (140-360); RED CELL DISTRIBUTION WIDTH 15.2 % (11.7-14.4)
[2019-06-14 07:01] LABS: ANION GAP 22.3 mmol/L (8-16); CALCIUM 7.9 mg/dL (8.4-10.2); CREATININE, SERUM 8.14 mg/dL (0.72-1.25)
[2019-06-14 07:03] LABS: POTASSIUM 5.3 mmol/L (3.5-5.1)
[2019-06-14] MEDS: LANTHANUM CARBONATE 1000 MG PO SCH ×3 (07:30→16:30)
[2019-06-14 07:35] LABS: LYMPHOCYTES % (MANUAL) 7 % (19-48); MONOCYTES % (MANUAL) 5 % (3.4-9.0); NEUTROPHILS % (MANUAL) 88 % (40-74)
[2019-06-14 07:36] LABS: RBC MORPHOLOGY COMMENT NORMAL
[2019-06-14 07:37] LABS: PLATELET ESTIMATE ADEQUATE; PLATELET MORPHOLOGY COMMENT NORMAL
[2019-06-14] MEDS: CINACALCET 30 MG TAB PO SCH ×3 (08:21→17:02)
[2019-06-14] MEDS: FAMOTIDINE 20 MG TAB PO SCH ×2 (08:21→17:02)
[2019-06-14] MEDS: CLOPIDOGREL BISULFATE 75 MG TAB PO SCH (08:22)
[2019-06-14] MEDS: CALCIUM ACETATE 667 MG GELCAP PO SCH ×3 (08:22→17:03)
[2019-06-14] MEDS: ASPIRIN 81 MG CHEW TAB PO SCH (08:22)
[2019-06-14] MEDS: GABAPENTIN 100 MG CAP PO SCH ×2 (08:22→17:03)
[2019-06-14] MEDS: INSULIN LISPRO 100 UNIT/1 ML 3ML VIAL SQ SCH ×7 (08:30→21:20)
[2019-06-14] MEDS: METOPROLOL TARTRATE 50 MG TAB PO SCH ×2 (08:56→17:03)
[2019-06-14] MEDS ORDERED: SODIUM CHLORIDE 0.9% 1000ML 2,000 ML ONE (10:26)
[2019-06-14] MEDS ORDERED: BISACODYL 10 MG SUPP PR SCH (11:30)
--- NOTE | 2019-06-14 12:01 | NUR ---
Patient is getting dialysis at this time. Patient would like to wait to have laxative suppository until after dialysis is finished.
[2019-06-14] MEDS: HYDROMORPHONE 1MG/1ML INJ IV PRN (13:33)
--- NOTE | 2019-06-14 13:56 | Progress Note ---
DATE: 06/14/2019 SUBJECTIVE: The patient at bedside, still having some discomfort and pain to the right lower extremity, but is denying any history of fever, chills, nausea, or vomiting. OBJECTIVE: VITAL SIGNS: Afebrile, pulse rate 68, respirations 20, blood pressure 108/57, O2 saturation 95%. EXTREMITIES: Some foul smell present, still with some drainage, pain to the right lateral aspect of the talotibial joint. There is still some drainage present with some necrosis with bone exposed. Pedal pulses are diminished LABORATORY DATA: Labs show white blood cell count picking up once again to 24.3 after a low of 20.6 yesterday. ASSESSMENT: Peripheral arterial disease with osteomyelitis, cellulitis, and necrotizing fasciitis. PLAN: The patient informed at bedside while getting dialyzed that nothing else can be done as far as the foot secondary to severe infection and circulatory status. He will benefit from lifvy-gjb-gjva amputation. The patient at this time relates he does not want to have it, but will need it. Dressing was changed. We will continue local wound care and IV antibiotics until the niypx-vva-byeb amputation is done. Dr. Warren Arguelles consulted. KARY Bennett/QUIQUE /[id number]
--- NOTE | 2019-06-14 18:22 | Progress Note ---
DATE: 06/14/2019 Cardiology Progress Note. SUBJECTIVE: Denies any chest pain or shortness of breath. Status post dialysis. No complaints today. The patient had a conversation with Podiatry, recommendation to proceed with BKA. OBJECTIVE: VITAL SIGNS: Temperature 98.5, heart rate 68, blood pressure 108/57, respiratory rate 20, O2 saturations 95%. GENERAL: No acute distress, alert. NECK: No JVD. CHEST: Clear to auscultation. CARDIOVASCULAR: Regular rate and rhythm. Normal S1 and S2. No S3 or S4. ABDOMEN: Soft. Bowel sounds positive. EXTREMITIES: Trace edema. Right foot wound covered with dressings. CARDIOVASCULAR MEDICATIONS: Reviewed: 1. Metoprolol tartrate 100 mg b.i.d. 2. Aspirin 81 mg daily. 3. Clopidogrel 75 mg daily. 4. Atorvastatin 40 mg at bedtime. STUDIES: Reviewed: Sodium 135, potassium 5.3, chloride 96, bicarbonate 22, BUN 46, creatinine 8.1, glucose 225. White blood cells 24 trending up, hemoglobin 7.9, platelets 304. INR 1. AST 17, ALT 9, alkaline phosphatase 130. ASSESSMENT AND PLAN: A 63-year-old man presents with: 1. Right foot wound in the setting of severe underlying peripheral vascular disease, non-revascularizable per recent angiogram from [facility]. 2. Coronary artery disease, status post recent drug-eluting stent PCI to proximal LAD, April 2019. 3. End-stage renal disease. 4. Diabetes. 5. Hypertension. 6. Dyslipidemia. RECOMMENDATIONS: The patient will benefit from continuing anti-platelet therapy where as possible, given recent drug-eluting stent PCI in the setting of recent non-STEMI, to decrease risk for stent thrombosis. Regarding BKA, the patient is on up titrate beta-beba to optimal tolerated dose. He has an elevated risk for adverse cardiovascular outcomes given his underlying comorbidities including diabetes, end-stage renal disease and vasculopathy with CAD and PAD. This includes the risk for , heart attack, stroke, or other cardiovascular complications. Continue current cardiovascular medications. At this point, volume optimization per Nephrology expertise. Overall guarded limb and overall prognosis. Romel Astudillo MD AFV/MODL /[id number] IRINA
--- NOTE | 2019-06-14 19:05 | NUR ---
Receive the patient in report.lyeing in the bed.aaox3.stable condition.
[2019-06-14] MEDS: ATORVASTATIN 40 MG TAB PO SCH (21:18)
[2019-06-14] MEDS: HYDROCODONE/APAP 7.5MG-325MG 1 EA TAB PO PRN (21:30)
[2019-06-15] VITALS (8 sets, daily range): BP systolic 89–154; BP diastolic 50–74
[2019-06-15] MEDS: HYDROMORPHONE 1MG/1ML INJ IV PRN ×2 (00:10→06:30)
--- NOTE | 2019-06-15 01:56 | NUR ---
Sleeping well after administered pain med.right foot wound is covered with dressing.no bowelmovement yet.
[2019-06-15] MEDS: PIPERACILLIN/TAZO 2.25 GM 50 ML IV SCH ×4 (02:13→20:15)
[2019-06-15 05:55] LABS: BASOPHILS # (AUTO) 0.1 (0.0-0.1); BASOPHILS % 0.3 % (0.0-1.0); EOSINOPHILS # (AUTO) 0.6 (0.0-0.4); EOSINOPHILS % 2.7 % (0.0-6.0); HEMATOCRIT 23.1 % (38.2-49.6); HEMOGLOBIN 7.2 g/dL (14.0-18.0); LYMPHOCYTES # (AUTO) 1.1 (1.0-3.2); LYMPHOCYTES % 4.7 % (18.0-39.1); MEAN CORPUSCULAR HEMOGLOBIN 28.3 pg (28-32); MEAN CORPUSCULAR HGB CONC 31.2 g/dL (31-35); MEAN CORPUSCULAR VOLUME 90.9 fL (81-99); MONOCYTES # (AUTO) 1.3 (0.2-0.8); MONOCYTES % 5.8 % (4.4-11.3); NEUTROPHILS # (AUTO) 19.2 (2.1-6.9); NEUTROPHILS % 85.2 % (38.7-80.0); PLATELET COUNT 337 x10e3/uL (140-360); RED BLOOD COUNT 2.54 x10e6/uL (4.3-5.7); RED CELL DISTRIBUTION WIDTH 14.9 % (11.7-14.4)
--- NOTE | 2019-06-15 06:18 | NUR ---
Had a bowel movement.cleansed and diaper changed.
[2019-06-15 06:19] LABS: ANION GAP 18.4 mmol/L (8-16); CALCIUM 7.5 mg/dL (8.4-10.2); CREATININE, SERUM 6.61 mg/dL (0.72-1.25); PHOSPHORUS 3.6 MG/DL (2.3-4.7); POTASSIUM 4.4 mmol/L (3.5-5.1)
--- NOTE | 2019-06-15 07:02 | NUR ---
Bed side shift report given to oncoming RN.stable condition.
[2019-06-15] MEDS: LANTHANUM CARBONATE 1000 MG PO SCH ×3 (07:30→16:30)
[2019-06-15] MEDS: INSULIN LISPRO 100 UNIT/1 ML 3ML VIAL SQ SCH ×7 (07:48→21:00)
[2019-06-15] MEDS: FAMOTIDINE 20 MG TAB PO SCH ×2 (08:05→16:55)
[2019-06-15] MEDS: CINACALCET 30 MG TAB PO SCH ×3 (08:06→16:55)
[2019-06-15] MEDS: CALCIUM ACETATE 667 MG GELCAP PO SCH ×3 (08:08→17:40)
[2019-06-15] MEDS: DOCUSATE SODIUM 100 MG CAP PO SCH ×2 (08:08→17:00)
[2019-06-15] MEDS: METOPROLOL TARTRATE 50 MG TAB PO SCH ×2 (08:08→17:25)
[2019-06-15] MEDS: ASPIRIN 81 MG CHEW TAB PO SCH (08:08)
[2019-06-15] MEDS: CLOPIDOGREL BISULFATE 75 MG TAB PO SCH (08:08)
[2019-06-15] MEDS: GABAPENTIN 100 MG CAP PO SCH ×2 (08:08→17:40)
[2019-06-15] MEDS: POLYETHYLENE GLYCOL 3350 17 GM PACK PO SCH ×2 (08:09→17:00)
--- NOTE | 2019-06-15 10:11 | NUR ---
Spoke to Dr Da Silva regarding dressing change, Dressing done on rt foot patient tolerated well, denies any pain, no distress noted
[2019-06-15] MEDS: ACETAMINOPHEN 325 MG TAB PO PRN (12:21)
--- NOTE | 2019-06-15 15:41 | NUR ---
Patient Blood sugar is 54, 2 cups of apple juice given, will recheck in 15 mins, patient Alert , no distress now
--- NOTE | 2019-06-15 16:25 | NUR ---
Patient had 4 large bowel movements.
[2019-06-15] MEDS: VANCOMYCIN 1GM/NS 250 ML 250 ML IV SCH (17:40)
--- NOTE | 2019-06-15 17:45 | NUR ---
Dr Da Silva and Rocio Arguelles had rounds, Patient refused to have surgery
--- NOTE | 2019-06-15 19:00 | NUR ---
Received the patient in report.lyeing in the bed.stable condition.
--- NOTE | 2019-06-15 19:22 | Progress Note ---
DATE: 06/15/2019 Cardiology Progress Note SUBJECTIVE: Denies chest pain or shortness of breath. Discussed at length recommendation for BKA given poor vascular supply and continued ongoing infection with progression of gangrene in spite of attempted TMA. OBJECTIVE: VITAL SIGNS: Temperature 97.3, heart rate 74, blood pressure 154/74, respiratory rate 20, and O2 saturation 100%. GENERAL: In no acute distress. Alert. NECK: No JVD. CHEST: Clear to auscultation. CARDIOVASCULAR: Regular rate and rhythm. Normal S1 and S2. No S3 or S4. ABDOMEN: Soft. Bowel sounds positive. EXTREMITIES: Trace edema. Right forefoot wound with gangrenous changes and foul smell. STUDIES: Reviewed. Remarkable for potassium 4.4, bicarbonate 26, and creatinine 6.6. Hemoglobin 7.2, white blood cells 22.4 trending up, and platelets 237. CARDIOVASCULAR MEDICATIONS: Reviewed. Aspirin 81 mg daily, atorvastatin 40 mg at bedtime, clopidogrel 75 mg daily, and metoprolol tartrate 100 mg b.i.d. ASSESSMENT AND PLAN: 1. A 63-year-old man with severe peripheral vascular disease, non-revascularizable per recent angiogram in April at [facility]. 2. Anemia. 3. Ongoing infection to right foot with persistent leukocytosis, trending up and foul smell at the site, for which below-knee amputation is advised. 4. End-stage renal disease. 5. Coronary artery disease, status post recent drug-eluting stent PCI to proximal LAD at [facility] in April 2019. RECOMMEND: Continue dual antiplatelet therapy, statin therapy and beta-beba. Prognosis remains guarded foot as well as overall prognosis. MD LEX Toth/QUIQUE /[id number]
--- NOTE | 2019-06-15 19:27 | Progress Note ---
DATE: 06/15/2019 SUBJECTIVE: The patient is seen at bedside, sleeping. No apparent distress. OBJECTIVE: VITAL SIGNS: Afebrile, pulse rate 74, respirations 20, blood pressure 154/74, and O2 saturation 100%. EXTREMITIES: Dressing dry and intact, but still some foul smell present. LABORATORY DATA: Noted. He has a white blood cell count of 22.49. ASSESSMENT: Cellulitis, osteomyelitis, peripheral arterial disease with necrotizing fasciitis. PLAN: The patient awaiting Dr. Warren Arguelles for possible [id number] amputation. We will continue IV antibiotics and local wound care for now and offloading. KARY Bennett/JASONL /[id number]
[2019-06-15] MEDS: ATORVASTATIN 40 MG TAB PO SCH (21:04)
[2019-06-15] MEDS: INSULIN GLARGINE 100 UNITS/ML VIAL SQ SCH (21:20)
--- NOTE | 2019-06-15 23:10 | NUR ---
Assessment done.no resp distress right foot covered with dressing.need to collect stool.no bowel movement yet.phone and call light within reach.instructed to call for assistance as needed.
[2019-06-16] VITALS (7 sets, daily range): BP systolic 100–172; BP diastolic 57–83
[2019-06-16] MEDS: PIPERACILLIN/TAZO 2.25 GM 50 ML IV SCH ×4 (02:21→21:34)
[2019-06-16] MEDS: HYDROCODONE/APAP 7.5MG-325MG 1 EA TAB PO PRN ×3 (05:15→11:32)
[2019-06-16 05:57] LABS: BASOPHILS % 0.1 % (0.0-1.0); EOSINOPHILS # (AUTO) 0.4 (0.0-0.4); LYMPHOCYTES # (AUTO) 0.9 (1.0-3.2); LYMPHOCYTES % 4.5 % (18.0-39.1); MEAN CORPUSCULAR HEMOGLOBIN 28.2 pg (28-32); MEAN CORPUSCULAR HGB CONC 30.4 g/dL (31-35); MEAN CORPUSCULAR VOLUME 92.7 fL (81-99); MONOCYTES # (AUTO) 1.2 (0.2-0.8); MONOCYTES % 5.8 % (4.4-11.3); NEUTROPHILS # (AUTO) 17.5 (2.1-6.9); NEUTROPHILS % 86.6 % (38.7-80.0); PLATELET COUNT 273 x10e3/uL (140-360); RED BLOOD COUNT 2.48 x10e6/uL (4.3-5.7)
[2019-06-16 06:05] LABS: ALBUMIN 1.8 g/dL (3.5-5.0); ALBUMIN/GLOBULIN RATIO 0.4 (0.8-2.0); ALKALINE PHOSPHATASE 86 IU/L (40-150); BLOOD UREA NITROGEN 43 mg/dL (7-26); BUN/CREATININE RATIO 5 (6-25); CALCIUM 7.1 mg/dL (8.4-10.2); CARBON DIOXIDE 24 mmol/L (22-29); CHLORIDE 96 mmol/L (98-107); EST GLOMERULAR FILTRATION RATE 7 ML/MIN (60-); GLUCOSE 310 mg/dL (74-118); SODIUM 132 mmol/L (136-145)
[2019-06-16 06:06] LABS: ALANINE AMINOTRANSFERASE < 6 IU/L (0-55)
--- NOTE | 2019-06-16 07:05 | NUR ---
RCD PT AT BED PT IS ALERT AND ORIENTED PT RESTING ON BED IV PATENT BY SALINE FLUSH BED LOW AND LOCKED CALL LIGHT IN REACH
--- NOTE | 2019-06-16 07:10 | NUR ---
Bed side shift report given to oncoming rn.stable condition.
[2019-06-16] MEDS: CINACALCET 30 MG TAB PO SCH ×3 (07:30→16:30)
[2019-06-16] MEDS: LANTHANUM CARBONATE 1000 MG PO SCH ×3 (07:30→16:30)
[2019-06-16] MEDS: INSULIN LISPRO 100 UNIT/1 ML 3ML VIAL SQ SCH ×7 (07:30→22:59)
[2019-06-16] MEDS: FAMOTIDINE 20 MG TAB PO SCH ×2 (07:30→16:30)
[2019-06-16] MEDS: CALCIUM ACETATE 667 MG GELCAP PO SCH ×3 (08:00→17:00)
[2019-06-16] MEDS: POLYETHYLENE GLYCOL 3350 17 GM PACK PO SCH ×2 (09:00→17:00)
[2019-06-16] MEDS: GABAPENTIN 100 MG CAP PO SCH ×2 (09:00→17:00)
[2019-06-16] MEDS: CLOPIDOGREL BISULFATE 75 MG TAB PO SCH (09:00)
[2019-06-16] MEDS: METOPROLOL TARTRATE 50 MG TAB PO SCH ×2 (09:00→17:00)
[2019-06-16] MEDS: ASPIRIN 81 MG CHEW TAB PO SCH (09:00)
[2019-06-16] MEDS: DOCUSATE SODIUM 100 MG CAP PO SCH ×2 (09:00→17:00)
--- NOTE | 2019-06-16 12:30 | NUR ---
AC TO DR CHEPE MESA ,IS HE COMING TO SEE THE PT TODAY DR MO WANTED TO KNOW HE IS COMING OR NOT
--- NOTE | 2019-06-16 13:13 | NUR ---
DR DIAZ RETURNED THE CALL HE SAID HE IS GOING TO DO SURGERY ON TOMORROW GOT THE ORDER TO TAKE CONSENT FOR RT BK AMPUTATION ON TOMORROW
--- NOTE | 2019-06-16 13:19 | Progress Note ---
DATE: 06/16/2019 SUBJECTIVE: The patient at bedside, in better spirits today. Denies any history of fever, chills, nausea, or vomiting. OBJECTIVE: VITAL SIGNS: Afebrile. Vital signs stable. EXTREMITIES: Still some foul smell noted to the right lower extremity secondary to severe infection and necrotizing fasciitis with osteomyelitic changes and peripheral arterial disease. ASSESSMENT: 1. Necrotizing fasciitis. 2. Diabetic neuropathy. 3. Peripheral arterial disease with osteomyelitis. PLAN: The patient relates he is ready to have surgical intervention, agrees to have a bjlfc-yzb-[id number] amputation, awaiting Dr. Warren Arguelles. We will continue IV antibiotics and local wound care. KARY Bennett/QUIQUE /[id number]
--- NOTE | 2019-06-16 13:30 | NUR ---
PAGED TO CYNTHIA AND TALKED ARGELIA SHE SAID SOME ONE COMING TO DO DIALYSIS
[2019-06-16] MEDS ORDERED: SODIUM CHLORIDE 0.9% 250ML 250 ML IV ONE (14:00)
[2019-06-16] MEDS: HYDROMORPHONE 1MG/1ML INJ IV PRN ×2 (14:16→22:15)
[2019-06-16] MEDS ORDERED: SODIUM CHLORIDE 0.9% 1000ML 2,000 ML ONE (15:29)
--- NOTE | 2019-06-16 15:43 | Progress Note ---
DATE: 06/16/2019 Cardiology Progress Note SUBJECTIVE: No complaints. Denies chest pain or shortness of breath. Continues to have intractable pain to right foot wound. He is now agreeable to proceeding with BKA. OBJECTIVE: VITAL SIGNS: Temperature 96.9, heart rate 68, blood pressure 117/57, respiratory rate 19, and O2 saturation 96%. GENERAL: In no acute distress, alert. NECK: No JVD. CHEST: Clear to auscultation. CARDIOVASCULAR: Regular rate and rhythm. Normal S1, S2. ABDOMEN: Soft. Bowel sounds positive. EXTREMITIES: Trace edema. Right foot wound remains foul smelling with gangrenous changes. Abnormal pedal pulses. CARDIOVASCULAR MEDICATIONS: Reviewed. Metoprolol tartrate 100 mg b.i.d., aspirin 81 mg daily, clopidogrel 75 mg daily, and atorvastatin 40 mg at bedtime. LABORATORY STUDIES: Reviewed. Potassium 5, bicarbonate 24, and creatinine 9.1. White blood cells 20.2, hemoglobin 7, and platelets 273. AST 15, ALT less than 6, and alkaline phosphatase 86. ASSESSMENT AND PLAN: A 63-year-old man, presents with critical limb ischemia and active infected wound. Progression of gangrene in spite of attempts to proceed with TMA for source control. The patient will benefit from BKA from the source control standpoint. At this point, persistent white count, intractable pain also in setting of persistent antibiotic use raised concern. Surgery has been consulted. The patient will be at elevated risk for adverse cardiovascular outcomes with noncardiac surgery given his underlying comorbidities including diabetes, CKD, and atherosclerotic vascular disease. At this point, he is on adequately dosed beta-beba for perioperative management. Dual anti-platelet therapy is advised where as possible and if active bleeding can hold for shortest period of time if necessary given recent drug-eluting stent PCI to proximal LAD. Discontinuation of antiplatelet therapy will be associated with an elevated risk for stent thrombosis. This needs to be balanced out with ongoing bleeding risk at this time. We would therefore consider more liberal blood transfusion strategy for him as his hemoglobin at this point is 7 prior to BKA. We will be available as needed. Please call with any questions. Romel Astudillo MD AFV/MODL /[id number]
--- NOTE | 2019-06-16 16:00 | NUR ---
2 UNITS OF BLOOD TRANSFUSED DURING DIALYSIS
[2019-06-16] MEDS ORDERED: SODIUM CHLORIDE 0.9% 1000ML 2,000 ML IV PRN (17:00)
--- NOTE | 2019-06-16 18:42 | NUR ---
PT RESTING ON BED BED SIDE REPORT GIVEN TO ONCOMING NURSE
[2019-06-16] MEDS: INSULIN GLARGINE 100 UNITS/ML VIAL SQ SCH (21:00)
[2019-06-16] MEDS: ATORVASTATIN 40 MG TAB PO SCH (21:34)
[2019-06-16] MEDS: VANCOMYCIN 1GM/NS 250 ML 250 ML IV SCH (22:28)
[2019-06-17] VITALS (8 sets, daily range): BP systolic 142–156; BP diastolic 76–87
[2019-06-17] MEDS: PIPERACILLIN/TAZO 2.25 GM 50 ML IV SCH ×4 (02:30→20:30)
[2019-06-17] MEDS: HYDROMORPHONE 1MG/1ML INJ IV PRN ×2 (04:53→14:20)
[2019-06-17 05:24] LABS: BASOPHILS # (AUTO) 0.1 (0.0-0.1); BASOPHILS % 0.3 % (0.0-1.0); EOSINOPHILS # (AUTO) 0.4 (0.0-0.4); EOSINOPHILS % 2.1 % (0.0-6.0); HEMATOCRIT 28.2 % (38.2-49.6); HEMOGLOBIN 9.2 g/dL (14.0-18.0); LYMPHOCYTES # (AUTO) 1.1 (1.0-3.2); LYMPHOCYTES % 5.8 % (18.0-39.1); MEAN CORPUSCULAR HEMOGLOBIN 29.2 pg (28-32); MEAN CORPUSCULAR HGB CONC 32.6 g/dL (31-35); MEAN CORPUSCULAR VOLUME 89.5 fL (81-99); MONOCYTES # (AUTO) 1.4 (0.2-0.8); MONOCYTES % 7.7 % (4.4-11.3); NEUTROPHILS # (AUTO) 15.4 (2.1-6.9); PLATELET COUNT 249 x10e3/uL (140-360); RED BLOOD COUNT 3.15 x10e6/uL (4.3-5.7); RED CELL DISTRIBUTION WIDTH 15.2 % (11.7-14.4)
[2019-06-17 05:42] LABS: ALBUMIN 1.8 g/dL (3.5-5.0); ALBUMIN/GLOBULIN RATIO 0.4 (0.8-2.0); CREATININE, SERUM 5.64 mg/dL (0.72-1.25)
[2019-06-17 06:23] LABS: MAGNESIUM 1.9 MG/DL (1.3-2.1)
[2019-06-17 06:32] LABS: PHOSPHORUS 2.8 MG/DL (2.3-4.7)
[2019-06-17] MEDS: LANTHANUM CARBONATE 1000 MG PO SCH ×3 (07:30→16:30)
--- NOTE | 2019-06-17 07:30 | NUR ---
PT REFUSING TO HAVE SURGERY TODAY. WANTS TO GET ANOTHER OPINION FROM MD. DR. Yajaira MESA NOTIFIED.
[2019-06-17] MEDS: ASPIRIN 81 MG CHEW TAB PO SCH (09:17)
[2019-06-17] MEDS: CLOPIDOGREL BISULFATE 75 MG TAB PO SCH (09:17)
[2019-06-17] MEDS: FAMOTIDINE 20 MG TAB PO SCH ×2 (09:17→16:59)
[2019-06-17] MEDS: METOPROLOL TARTRATE 50 MG TAB PO SCH ×2 (09:18→17:02)
[2019-06-17] MEDS: GABAPENTIN 100 MG CAP PO SCH ×2 (09:18→17:01)
[2019-06-17] MEDS: CALCIUM ACETATE 667 MG GELCAP PO SCH ×3 (09:19→17:01)
[2019-06-17] MEDS: POLYETHYLENE GLYCOL 3350 17 GM PACK PO SCH ×2 (09:19→17:01)
[2019-06-17] MEDS: DOCUSATE SODIUM 100 MG CAP PO SCH ×2 (09:19→17:01)
[2019-06-17] MEDS: CINACALCET 30 MG TAB PO SCH ×3 (09:19→16:59)
[2019-06-17] MEDS: INSULIN LISPRO 100 UNIT/1 ML 3ML VIAL SQ SCH ×7 (09:58→21:00)
--- NOTE | 2019-06-17 10:00 | NUR ---
DR. CHENG AT BEDSIDE NOTIFIED OF PT CANCEL SURGERY.
[2019-06-17] MEDS: HYDROCODONE/APAP 7.5MG-325MG 1 EA TAB PO PRN ×2 (10:11→16:45)
--- NOTE | 2019-06-17 12:00 | NUR ---
DR. BURNETT AT BEDSIDE. SPOKE TO PT. PT ACCEPTING TO DO SURGERY.
--- NOTE | 2019-06-17 13:00 | NUR ---
DR. Yajaira MESA ON UNIT. NOTIFIED OF PT WANTING TO HAVE SURGERY. WILL ARRANGE FOR ANOTHER DAY TO HAVE PROCEDURE DONE.
--- NOTE | 2019-06-17 14:34 | NUR ---
PT COMPLAINING OF PAIN TO THE RIGHT FOOT. 10/17. MEDICATED WITH DILAUDID 0.5MG IV. WILL CONTINUE TO MONITOR.
[2019-06-17] MEDS: VANCOMYCIN 1GM/NS 250 ML 250 ML IV SCH (17:01)
--- NOTE | 2019-06-17 18:00 | NUR ---
SPOKE TO DR. Yajaira MESA REGARDING SURGERY FOR TOMORROW AND WILL RESCHEDULE DIALYSIS. DR. Yajaira MESA SAID ANESTHIOLOGIST WILL NOT DUE THE CASE THE DAY OF DIALYSIS. WHAT MOST LIKELY NEEDS TO BE DONE IS FOR THE PT TO HAVE DIALYSIS ON FRIDAY AND HAVE THE PROCEDURE DONE ON FRIDAY.
--- NOTE | 2019-06-17 18:05 | NUR ---
CALLED AMY CORONA FOR DR. BURNETT TO NOTIFY OF PLAN FOR PROCEDURE.
--- NOTE | 2019-06-17 18:15 | NUR ---
CALLED DR. CARRASCO TO NOTIFY OF PLAN FOR PROCEDURE AND TO GET ORDERS FOR DIALYSIS ON FRIDAY. AWAITING CALL.
--- NOTE | 2019-06-17 18:37 | Progress Note ---
DATE: 06/17/2019 SUBJECTIVE: Sleeping today, no complaints. OBJECTIVE: VITAL SIGNS: Temperature 97.8, heart rate 77, blood pressure 156/83, respiratory rate 20, O2 saturation 96%. GENERAL: No acute distress, sleeping. NECK: No JVD. CHEST: Clear to auscultation. CARDIOVASCULAR: Regular rate and rhythm. Normal S1, S2. ABDOMEN: Soft. Bowel sounds positive. EXTREMITIES: Trace edema. Right foot wound foul smelling with gangrenous changes. CARDIOVASCULAR MEDICATIONS: Reviewed: 1. Metoprolol tartrate 100 mg b.i.d. 2. Aspirin 81 mg daily. 3. Clopidogrel 75 mg daily. 4. Atorvastatin 40 mg at bedtime. 5. Zosyn and vancomycin. STUDIES: Reviewed: Sodium 137, potassium 4, chloride 98, bicarbonate 28, BUN 23, creatinine 5.6, glucose 231. White blood cells 18.5, hemoglobin 9.2, platelets 249. INR 1.05, PT 14.4, PTT 39.6. AST 21, ALT 9, alkaline phosphatase 87. ASSESSMENT/PLAN: A 63-year-old man with: 1. Severe peripheral arterial disease, infection to affecting right foot with gangrenous changes and persistent leukocytosis in spite of the source control. BKA advised for life-threatening ongoing infection. 2. Coronary artery disease, status post recent drug-eluting stent to proximal LAD. Continue antiplatelet therapy as well as no active bleeding with aspirin and clopidogrel. Discussed with surgery. 3. Elevated risk for adverse cardiovascular outcomes with noncardiac surgery. No acute on stable cardiac conditions identified at this point, continue metoprolol. 4. Volume status optimized by Nephrology. The patient on scheduled dialysis. 5. Anemia, monitor. Overall guarded limb and overall prognosis. Romel Astudillo MD AFArt/MODL /[id number]
[2019-06-17] MEDS: ATORVASTATIN 40 MG TAB PO SCH (21:00)
[2019-06-17] MEDS: INSULIN GLARGINE 100 UNITS/ML VIAL SQ SCH (21:00)
[2019-06-18] VITALS (9 sets, daily range): BP systolic 134–173; BP diastolic 65–84
[2019-06-18] MEDS: HYDROMORPHONE 1MG/1ML INJ IV PRN ×4 (01:29→20:39)
[2019-06-18] MEDS: PIPERACILLIN/TAZO 2.25 GM 50 ML IV SCH ×4 (01:30→20:20)
[2019-06-18 06:57] LABS: BASOPHILS # (AUTO) 0.1 (0.0-0.1); BASOPHILS % 0.3 % (0.0-1.0); EOSINOPHILS # (AUTO) 0.4 (0.0-0.4); EOSINOPHILS % 2.6 % (0.0-6.0); HEMATOCRIT 28.8 % (38.2-49.6); HEMOGLOBIN 9.2 g/dL (14.0-18.0); LYMPHOCYTES % 5.8 % (18.0-39.1); MEAN CORPUSCULAR HEMOGLOBIN 29.3 pg (28-32); MEAN CORPUSCULAR HGB CONC 31.9 g/dL (31-35); MEAN CORPUSCULAR VOLUME 91.7 fL (81-99); MONOCYTES # (AUTO) 1.4 (0.2-0.8); MONOCYTES % 8.5 % (4.4-11.3); NEUTROPHILS # (AUTO) 13.8 (2.1-6.9); PLATELET COUNT 228 x10e3/uL (140-360); RED BLOOD COUNT 3.14 x10e6/uL (4.3-5.7); RED CELL DISTRIBUTION WIDTH 15.2 % (11.7-14.4)
[2019-06-18 07:27] LABS: ALBUMIN 1.7 g/dL (3.5-5.0); ALBUMIN/GLOBULIN RATIO 0.4 (0.8-2.0); ANION GAP 13.1 mmol/L (8-16); CREATININE, SERUM 5.12 mg/dL (0.72-1.25); POTASSIUM 4.1 mmol/L (3.5-5.1)
[2019-06-18] MEDS: FAMOTIDINE 20 MG TAB PO SCH (07:30)
[2019-06-18] MEDS: CINACALCET 30 MG TAB PO SCH ×2 (07:30→11:30)
[2019-06-18] MEDS: LANTHANUM CARBONATE 1000 MG PO SCH ×3 (07:30→16:30)
[2019-06-18] MEDS: INSULIN LISPRO 100 UNIT/1 ML 3ML VIAL SQ SCH ×7 (07:30→20:38)
[2019-06-18] MEDS: CALCIUM ACETATE 667 MG GELCAP PO SCH ×2 (08:00→11:55)
[2019-06-18] MEDS: ASPIRIN 81 MG CHEW TAB PO SCH (08:46)
[2019-06-18] MEDS: METOPROLOL TARTRATE 50 MG TAB PO SCH ×2 (08:46→17:00)
[2019-06-18] MEDS: POLYETHYLENE GLYCOL 3350 17 GM PACK PO SCH ×2 (08:46→17:00)
[2019-06-18] MEDS: GABAPENTIN 100 MG CAP PO SCH (08:46)
[2019-06-18] MEDS: DOCUSATE SODIUM 100 MG CAP PO SCH (08:46)
[2019-06-18] MEDS: CLOPIDOGREL BISULFATE 75 MG TAB PO SCH (08:47)
--- NOTE | 2019-06-18 09:00 | NUR ---
LUX JESUS FROM DR. BOYKIN OFFICE AT BEDSIDE.
--- NOTE | 2019-06-18 11:01 | NUR ---
PT REMAINS NPO FOR PROCEDURE THIS AFTERNOON.
--- NOTE | 2019-06-18 11:02 | NUR ---
STOOL SPECIMEN COLLECTED AND SENT TO THE LAB FOR OCCULT BLOOD.
--- NOTE | 2019-06-18 15:15 | NUR ---
PT TO OR FOR RIGHT BKA PROCEDURE VIA HOSPITAL BED. PT AAO X 3. IN STABLE CONDITION.
--- NOTE | 2019-06-18 16:46 | NUR ---
Nutrition Screen Note RD Recommendation for Physician: - Resume Renal/diabetic diet when medically appropriate Plan of Care: RD following, monitoring for tolerance and adequacy Nutrition reason for involvement: follow up Primary Diagnose(s): abscess, gangrene, PAD PMH: diabetes, ESRD, HTN, PVD, anemia Ht: 72 in Wt:180 lb BMI: 24.4 kg/m2 IBW:[address] Assessment: (06/17) Follow up. Pt is currently NPO for a procedure. Pt reports he was previously consuming >50% of his meals. No N/V/D/C or chewing/swallowing issues. Pt did not have any questions at time of visit. Will continue to monitor. (06/11/19) Chart reviewed. Labs and meds reviewed. Pt is a 63 year old male admitted with abscess, gangrene, and PAD. Pt reports he has a fair appetite and has been eating about 50% of his meals for the past 2 weeks. It is recorded that pt consumed 75% of dinner yesterday. Pt is currently NPO for a procedure and was previously on a renal/diabetic diet with Nepro. Pt reports he had weighed 192 lbs 2 weeks ago. Pt currently has a weight of 180 lbs in chart. It is noted that pt has edema. No N/V or chewing/swallowing issues. Will continue to monitor Current Diet: NPO Malnutrition Evaluation (06/11/19) The patient does not meet criteria for a specified degree of malnutrition at this time. Will re-evaluate at follow-up as appropriate. Diet Education Needs Assessment: 06/11/19: Pt was interested in renal and diabetic diet education materials. Pt was not interested in verbal education at time of visit and stated he will read provide materials at a later time. Encouraged pt to contact RD if he has questions. Nutrition Care Level: low Signed: Ada Etienne, RD, LD
--- NOTE | 2019-06-18 17:20 | Progress Note ---
DATE: 06/18/2019 Cardiology Progress Note SUBJECTIVE: No complaints. OBJECTIVE: VITAL SIGNS: Temperature 99.1, heart rate 65, blood pressure 143/66, respiratory rate 20, O2 saturation 100%. GENERAL: In no acute distress, alert. NECK: No JVD. CHEST: Clear to auscultation. CARDIOVASCULAR: Regular rate and rhythm. Normal S1, S2. No S3 or S4. ABDOMEN: Soft. Bowel sounds positive. EXTREMITIES: Trace edema. Right foot with gangrenous changes and foul smell on open wounds. CARDIOVASCULAR MEDICATIONS: Reviewed: 1. Metoprolol tartrate 100 mg b.i.d. 2. Aspirin 81 mg daily. 3. Atorvastatin 40 mg at bedtime. 4. Clopidogrel 75 mg daily. 5. On Zosyn and vancomycin antibiotics. STUDIES: Reviewed. Potassium 4.1, bicarbonate 29, and creatinine 5.1. White blood cells elevated at 16.8, hemoglobin 9.2, platelets 228. ASSESSMENT AND PLAN: A 63-year-old man presents with: 1. Life-threatening foot infection, abscess, cellulitis, status post attempted source control with foot surgery, given his severe peripheral arterial disease with continued active infection and worsening gangrene at the foot level. Recommendation for right BKA to assist and treatment of his life-threatening infection has been discussed and advised. Risk for adverse cardiovascular outcomes remains elevated given comorbidities including end-stage renal disease, coronary artery disease, status post recent drug-eluting stent to proximal LAD on dual antiplatelet therapy. 2. Perioperative beta-blockers are advised. Volume optimization per Nephrology, the patient on dialysis. MD LEX Toth/MODL /[id number]
[2019-06-18] MEDS ORDERED: ONDANSETRON HCL INJ 2MG/ML 2ML 2 MG/ML VIAL ONE (17:25)
[2019-06-18] MEDS ORDERED: SEVOFLURANE INHAL SOLN 250 ML PEN BTL ONE (17:25)
[2019-06-18] MEDS ORDERED: DEXAMETHASONE SOD PHOS INJ 4 MG/ML VIAL ONE (17:25)
[2019-06-18] MEDS ORDERED: LIDOCAINE HCL 2% LOCAL INJ 5 ML SDV VIAL INJ ONE (17:25)
[2019-06-18] MEDS ORDERED: PROPOFOL IV EMULSION 10 MG/ML 20 ML VIAL ONE (17:25)
[2019-06-18] MEDS ORDERED: MIDAZOLAM HCL 2 MG/2 ML VIAL ONE (17:41)
[2019-06-18] MEDS ORDERED: FENTANYL CITRATE/PF 100MCG/2 ML INJ ONE (17:41)
[2019-06-18] MEDS ORDERED: HYDROMORPHONE 1MG/1ML INJ ONE (18:35)
--- NOTE | 2019-06-18 18:45 | NUR ---
RECIEVED PT FROM PACU TO ROOM 207 VIA HOSPITAL BED. PT AWAKE AND ALERT. TELEMETRY BOX IN PLACE. HL TO THE [facility], SITE HEALTHY. YURIDIA Mcmahon THE RLE IS C/D/I. KNEE IMMOBILIZER IN PLACE. ELEVATED ON A PILLOW. BED IN LOW POSITION, BED IS LOCKED. SR UP X 2. CALL [place] WITHIN REACH.
--- NOTE | 2019-06-18 18:50 | Operative Report ---
DATE OF PROCEDURE: 06/18/2019 SURGEON: Warren Arguelles MD PREOPERATIVE DIAGNOSES: Gangrene of the right foot and non-reconstructible peripheral vascular disease. POSTOPERATIVE DIAGNOSES: Gangrene of the right foot and non-reconstructible peripheral vascular disease. OPERATION PERFORMED: Right below-knee amputation. ANESTHESIA: General. COMPLICATIONS: None. ESTIMATED BLOOD LOSS: 100 mL. DESCRIPTION OF PROCEDURE: With the patient lying in bed in the supine position under good general anesthesia. The right leg was prepped with Betadine solution and draped in the usual manner. An incision was made in the right lower leg below the knee with a longer posterior flap. Incision was deepened through the subcutaneous tissue down to the fascia. The fascia was opened. The muscle around the tibia was then divided with the cautery. The tibia was then freed up with a periosteal elevator to about an inch and a half to 2 inches above the skin incision, at which point, it was then divided with a Gigli saw. The fibula was similarly divided with a Gigli saw. The posterior muscle girdle was then divided with the cautery. The large blood vessels were all ligated with 0 silk ties and the specimen was sent for pathological examination. The whole wound was then copiously irrigated. Perfect hemostasis was ascertained. All bleeding points were either electrocoagulated or ligated with 2-0 Vicryl. After hemostasis was ascertained. The bone was then covered with bone wax. We took meticulous time to make sure that the wound was perfectly dry since the patient is on Plavix and aspirin. Once we were sure that was the case, the fascia was then reapproximated with interrupted sutures of 2-0 Vicryl and the skin was closed with interrupted vertical mattress sutures of 3-0 silk. A dressing was applied. The sponge, lap, and needle count were correct. The patient tolerated the procedure well and returned to the recovery room in stable condition. Warren Arguelles MD JLR/MODL /[id number]
--- NOTE | 2019-06-18 19:10 | NUR ---
RECEIVED REPORT FROM PREVIOUS NURSE. CALL LIGHT WITHIN REACH. PATIENT IN BED.
[2019-06-18] MEDS: ATORVASTATIN 40 MG TAB PO SCH (20:22)
[2019-06-18] MEDS: INSULIN GLARGINE 100 UNITS/ML VIAL SQ SCH (20:22)
[2019-06-18] MEDS ORDERED: SODIUM CHLORIDE 0.9% 250ML 250 ML ONE (20:23)
[2019-06-18] MEDS: ONDANSETRON HCL 4 MG ORAL DISINTEGRATING TAB PO PRN (20:40)
--- NOTE | 2019-06-18 21:16 | NUR ---
CALLED DR. BURNETT OFFICE AND TALKED TO AMY ESPINOZA ABOUT THE PATIENT'S DIET. SHE WAS TOLD THE PATIENT HAD THE SURGERY TODAY AND IS ASKING IF HE CAN EAT. OLGA SAID PUT HIM BACK TO HIS PREVIOUS DIET WHICH WAS RENAL ADA DIET
[2019-06-18] MEDS: HYDROCODONE/APAP 7.5MG-325MG 1 EA TAB PO PRN (23:39)
[2019-06-19] MEDS: PIPERACILLIN/TAZO 2.25 GM 50 ML IV SCH (01:46)
[2019-06-19] MEDS: HYDROMORPHONE 1MG/1ML INJ IV PRN (01:55)
[2019-06-19 03:30] VITALS: BP 155/72
[2019-06-19] MEDS: HYDRALAZINE HCL 20 MG/ML VIAL IV PRN (03:49)
[2019-06-19] MEDS: ACETAMINOPHEN 325 MG TAB PO PRN (03:55)
[2019-06-19] MEDS ORDERED: HYDROMORPHONE 1MG/1ML INJ IV STA (05:01)
--- NOTE | 2019-06-19 05:02 | NUR ---
CALLED DR. BURNETT OFFICE AND TALKED TO AMY ESPINOZA ABOUT THE PATIENT HAVING 10 OUT OF 10 PAIN IN RIGHT THIGH AND IT IS TO EARLY FOR HIS NORCO. SHE SAID TO GIVE A ONE TIME DOSE OF DILAUDID 0.5 MG AND SPACE OUT DILAUDID AND NORCO BY 2 HOURS
[2019-06-19 06:13] LABS: BASOPHILS # (AUTO) 0.1 (0.0-0.1); BASOPHILS % 0.4 % (0.0-1.0); EOSINOPHILS # (AUTO) 0.3 (0.0-0.4); EOSINOPHILS % 2.2 % (0.0-6.0); HEMATOCRIT 28.7 % (38.2-49.6); HEMOGLOBIN 9.2 g/dL (14.0-18.0); LYMPHOCYTES # (AUTO) 1.2 (1.0-3.2); MEAN CORPUSCULAR HEMOGLOBIN 29.6 pg (28-32); MEAN CORPUSCULAR HGB CONC 32.1 g/dL (31-35); MEAN CORPUSCULAR VOLUME 92.3 fL (81-99); MONOCYTES # (AUTO) 1.4 (0.2-0.8); MONOCYTES % 9.6 % (4.4-11.3); NEUTROPHILS # (AUTO) 11.7 (2.1-6.9); NEUTROPHILS % 78.9 % (38.7-80.0); PLATELET COUNT 277 x10e3/uL (140-360); RED BLOOD COUNT 3.11 x10e6/uL (4.3-5.7); RED CELL DISTRIBUTION WIDTH 14.9 % (11.7-14.4)
[2019-06-19 06:40] LABS: ANION GAP 15.5 mmol/L (8-16); CALCIUM 7.3 mg/dL (8.4-10.2); CREATININE, SERUM 7.11 mg/dL (0.72-1.25); POTASSIUM 4.5 mmol/L (3.5-5.1)
--- NOTE | 2019-06-19 07:19 | NUR ---
GAVE REPORT TO ONCOMING NURSE. PATIENT ASLEEP IN BED. CALL LIGHT WITHIN REACH.
[2019-06-19] MEDS: LANTHANUM CARBONATE 1000 MG PO SCH ×3 (07:30→16:30)
[2019-06-19] MEDS: INSULIN LISPRO 100 UNIT/1 ML 3ML VIAL SQ SCH ×8 (07:30→23:03)
[2019-06-19] MEDS: FAMOTIDINE 20 MG TAB PO SCH ×3 (07:30→16:30)
[2019-06-19] MEDS: CINACALCET 30 MG TAB PO SCH ×4 (07:30→16:30)
[2019-06-19 07:56] VITALS: BP 143/66
[2019-06-19] MEDS: CALCIUM ACETATE 667 MG GELCAP PO SCH ×4 (08:00→17:00)
[2019-06-19] MEDS: ASPIRIN 81 MG CHEW TAB PO SCH (09:00)
[2019-06-19] MEDS: METOPROLOL TARTRATE 50 MG TAB PO SCH ×2 (09:00→17:57)
[2019-06-19] MEDS: GABAPENTIN 100 MG CAP PO SCH ×3 (09:00→17:00)
[2019-06-19] MEDS: CLOPIDOGREL BISULFATE 75 MG TAB PO SCH (09:00)
[2019-06-19] MEDS: POLYETHYLENE GLYCOL 3350 17 GM PACK PO SCH ×2 (09:00→17:00)
[2019-06-19] MEDS: DOCUSATE SODIUM 100 MG CAP PO SCH ×3 (09:00→17:00)
[2019-06-19] MEDS: HYDROCODONE/APAP 7.5MG-325MG 1 EA TAB PO PRN (10:03)
[2019-06-19 11:23] VITALS: BP 118/66
[2019-06-19] MEDS ORDERED: EPOETIN ALFA-EPBX 10,000 UNIT/ML VIAL SC SCH (14:00)
--- NOTE | 2019-06-19 15:15 | Progress Note ---
DATE: 06/19/2019 SUBJECTIVE: Seen on dialysis, tolerating procedure. PHYSICAL EXAMINATION: GENERAL: Lying in bed, no distress. VITAL SIGNS: Temperature 97.4, pulse 59, blood pressure 118/66. LUNGS: Clear. EXTREMITIES: Right BKA. Left leg with no swelling. LABORATORY DATA: Hemoglobin is 9.2, K is 4.5, creatinine 7.11, serum CO2 27, BUN of 30. ASSESSMENT: 1. End-stage renal disease. 2. Underlying diabetic nephropathy and hypertensive nephrosclerosis. 3. Volume status reasonable. 4. Hyperphosphatemia is better controlled. PLAN: Hemodialysis today 4 hour run, 2 potassium bath, blood flow rate 350 mL/minute, dialysate flow rate 700 mL/minute, fluid removal of about 3 L targeted. MD AKIRA HernandezK/MODL /[id number]
[2019-06-19 15:26] VITALS: BP 157/69
--- NOTE | 2019-06-19 15:50 | Progress Note ---
DATE: SUBJECTIVE: Mr. Bautista is currently lying in bed comfortably, getting his hemodialysis. The patient underwent [id number] amputation on the right. Clinically, doing well and stable. PHYSICAL EXAMINATION: GENERAL: He is currently alert. VITALS: Stable, afebrile. HEENT: Not icteric. NECK: Supple. CHEST: Clear. COR: S1 and S2, no murmurs. ABDOMEN: Soft. IMPRESSION: 1. Gangrene of foot, status post amputation, can discontinue antibiotic. 2. End-stage renal disease, on hemodialysis. 3. Peripheral vascular disease. 4. Coronary artery disease. 5. Anemia of chronic disease. 6. We will follow with you. MD HOLLIS Rouse/MODL /[id number]
[2019-06-19] MEDS ORDERED: HYDROCODONE/APAP 7.5MG-325MG 1 EA TAB PO PRN (16:15)
--- NOTE | 2019-06-19 18:55 | Progress Note ---
DATE: 06/19/2019 Cardiology Progress Note SUBJECTIVE: Incisional site pain today. Otherwise, no complaints. Denies chest pain or shortness of breath. Ischemic discomfort now resolved per patient with pain overall better compared to yesterday. OBJECTIVE: VITAL SIGNS: Temperature 98.6, heart rate 67, blood pressure 157/69, respiratory rate 17, and O2 saturation 97%. GENERAL: No acute distress, alert. NECK: No JVD. CHEST: Clear to auscultation. CARDIOVASCULAR: Regular rate and rhythm. Normal S1 and S2. No S3 or S4. Systolic ejection murmur. ABDOMEN: Soft. Bowel sounds positive. EXTREMITIES: Right BKA. Dressings in place. CARDIOVASCULAR MEDICATIONS: Reviewed. 1. Atorvastatin 40 mg at bedtime. 2. Aspirin 81 mg daily. 3. Clopidogrel 75 mg daily. 4. Metoprolol tartrate 100 mg b.i.d. STUDIES: Reviewed. Potassium 4.5, creatinine 7, hemoglobin 9.2, white blood cells 14.8 trending down, platelets 277. ASSESSMENT AND PLAN: 1. A 63-year-old man with peripheral arterial disease, critical limb ischemia and infected right foot, now status post right below-knee amputation. 2. Coronary artery disease, status post recent drug-eluting stent PCI in the setting of non-STEMI at outside hospital, on dual antiplatelet therapy. 3. Hypertension and dyslipidemia. 4. End-stage renal disease. Recommend continue current cardiovascular medications. 5. Pain control p.r.n. MD LEX Toth/QUIQUE /[id number]
--- NOTE | 2019-06-19 19:10 | NUR ---
RECEIVED REPORT FROM PREVIOUS NURSE. CALL LIGHT WITHIN REACH. PATIENT IN BED TALKING ON THE PHONE.
[2019-06-19 20:26] VITALS: BP 118/66
[2019-06-19] MEDS: ATORVASTATIN 40 MG TAB PO SCH ×2 (21:00→23:02)
[2019-06-19] MEDS: INSULIN GLARGINE 100 UNITS/ML VIAL SQ SCH ×2 (21:00→23:02)
--- NOTE | 2019-06-19 21:20 | NUR ---
PATIENT IS REFUSING VITAL SIGNS BEING TAKEN AND BEING STUCK FOR BLOOD SUGAR. HE SAID HE WILL NOT LET US DO ANYTHING TILL HE GETS HIS PAIN MEDICATION. HE SAID THE TYLENOL IS NOT WORKING AND HE WANTS SOMETHING STRONGER. THE NORCO IS EVERY 6 HOURS AND IT IS TO EARLY FOR THE PATIENT TO GET NORCO. HE SAID HE CAN NOT WAIT 2 HOURS AND WE ARE NOT TAKING CARE OF HIM AND HE WANTS PAIN MEDICATION. CALLED DR. BURNETT AND LEFT A MESSAGE FOR HIM. WAITING FOR DR. BURNETT TO CALL BACK.
--- NOTE | 2019-06-19 22:00 | NUR ---
DR. BURNETT CALLED BACK AND WAS TOLD WHAT WAS GOING ON. DR. BURNETT SAID GIVE NORCO 10 MG Q4H AND CANCEL PREVIOUS NORCO ORDER. DR. BURNETT SAID IF THE MEDICATION DOES NOT HELP TO CALL HIM BACK.
[2019-06-19] MEDS: HYDROCODONE/APAP 10MG-325MG TAB PO PRN (22:49)
[2019-06-19] MEDS: ONDANSETRON HCL 4 MG ORAL DISINTEGRATING TAB PO PRN (22:50)
[2019-06-19 23:00] VITALS: BP 149/67
--- NOTE | 2019-06-19 23:58 | NUR ---
CALLED DR. BURNETT AND TALKED TO HIM SAYING THE NORCO DID NOT HELP THE PATIENT AND THE PATIENT WANTS SOMETHING ELSE FOR PAIN. DR. BURNETT ORDERED DILAUDID FOR THE PATIENT
[2019-06-20] VITALS (7 sets, daily range): BP systolic 144–186; BP diastolic 70–86
[2019-06-20] MEDS: HYDROMORPHONE 1MG/1ML INJ IV PRN ×5 (00:15→20:27)
[2019-06-20] MEDS: HYDROCODONE/APAP 10MG-325MG TAB PO PRN (03:14)
[2019-06-20] MEDS: HYDRALAZINE HCL 20 MG/ML VIAL IV PRN (05:08)
[2019-06-20 06:32] LABS: BASOPHILS % 0.3 % (0.0-1.0); EOSINOPHILS # (AUTO) 0.7 (0.0-0.4); EOSINOPHILS % 5.4 % (0.0-6.0); HEMATOCRIT 27.2 % (38.2-49.6); HEMOGLOBIN 8.8 g/dL (14.0-18.0); LYMPHOCYTES # (AUTO) 0.9 (1.0-3.2); LYMPHOCYTES % 6.9 % (18.0-39.1); MEAN CORPUSCULAR HEMOGLOBIN 29.5 pg (28-32); MEAN CORPUSCULAR HGB CONC 32.4 g/dL (31-35); MEAN CORPUSCULAR VOLUME 91.3 fL (81-99); MONOCYTES # (AUTO) 1.1 (0.2-0.8); MONOCYTES % 7.9 % (4.4-11.3); NEUTROPHILS # (AUTO) 10.5 (2.1-6.9); NEUTROPHILS % 78.8 % (38.7-80.0); PLATELET COUNT 257 x10e3/uL (140-360); RED BLOOD COUNT 2.98 x10e6/uL (4.3-5.7)
[2019-06-20 06:56] LABS: ANION GAP 13.6 mmol/L (8-16); CREATININE, SERUM 5.18 mg/dL (0.72-1.25); POTASSIUM 3.6 mmol/L (3.5-5.1)
[2019-06-20 06:58] LABS: CALCIUM 6.9 mg/dL (8.4-10.2)
[2019-06-20] MEDS ORDERED: CALCIUM GLUCONATE 10% INJ 9.3 MEQ in SODIUM CHLORIDE 0.9% 100 ML 100 ML IV ONE (07:15)
--- NOTE | 2019-06-20 07:15 | NUR ---
CALLED DR. BURNETT AND TOLD HIM WE HAD A CRITICAL LAB RESULT WITH A CALCIUM OF 6.9 AND PATIENT REQUESTED PT. DR. BURNETT SAID TO GIVE PT FOR THE PATIENT AND GIVE CALCIUM GLUCONATE 2 G IV
[2019-06-20] MEDS: CINACALCET 30 MG TAB PO SCH ×3 (07:30→16:02)
[2019-06-20] MEDS: INSULIN LISPRO 100 UNIT/1 ML 3ML VIAL SQ SCH ×7 (07:30→20:34)
[2019-06-20] MEDS: FAMOTIDINE 20 MG TAB PO SCH ×2 (07:30→16:02)
[2019-06-20] MEDS: LANTHANUM CARBONATE 1000 MG PO SCH ×3 (07:30→16:17)
--- NOTE | 2019-06-20 07:38 | NUR ---
GAVE REPORT TO ONCOMING NURSE. PATIENT IN BED. CALL LIGHT WITHIN REACH.
[2019-06-20] MEDS: CALCIUM ACETATE 667 MG GELCAP PO SCH ×3 (08:00→16:15)
[2019-06-20] MEDS: DOCUSATE SODIUM 100 MG CAP PO SCH ×2 (09:00→16:15)
[2019-06-20] MEDS: METOPROLOL TARTRATE 50 MG TAB PO SCH ×2 (09:00→16:15)
[2019-06-20] MEDS: POLYETHYLENE GLYCOL 3350 17 GM PACK PO SCH ×2 (09:00→16:15)
[2019-06-20] MEDS: ASPIRIN 81 MG CHEW TAB PO SCH (09:00)
[2019-06-20] MEDS: CLOPIDOGREL BISULFATE 75 MG TAB PO SCH (09:00)
--- NOTE | 2019-06-20 15:07 | Progress Note ---
DATE: 06/20/2019 Cardiology Progress Note SUBJECTIVE: Denies any chest pain or shortness of breath. Sleeping comfortably today. OBJECTIVE: VITAL SIGNS: Temperature 98.6, heart rate 74, blood pressure 173/79, respiratory rate 18, and O2 saturation 100%. GENERAL: Sleeping comfortably. NECK: No JVD. CHEST: Clear to auscultation. CARDIOVASCULAR: Regular rate and rhythm. Normal S1, S2. ABDOMEN: Soft. EXTREMITIES: Right BKA, covered with dressings. Left lower extremity with trace edema. CARDIOVASCULAR MEDICATIONS: Reviewed. Atorvastatin 40 mg at bedtime, aspirin 81 mg daily, metoprolol tartrate 100 mg b.i.d., and clopidogrel 75 mg daily. LABORATORY STUDIES: Reviewed. Potassium 3.6 and creatinine 5.1. White blood cells 13.3, trending down, hemoglobin 8.8, and platelets 257. ASSESSMENT AND PLAN: A 63-year-old man, status post right below the knee amputation, peripheral vascular disease, diabetes, hypertension, dyslipidemia, end-stage renal disease, and coronary artery disease, status post drug-eluting stent. RECOMMENDATIONS: 1. Continue current cardiovascular medications. 2. Pain control p.r.n. MD LEX Toth/QUIQUE /[id number]
[2019-06-20] MEDS: GABAPENTIN 100 MG CAP PO SCH (16:15)
--- NOTE | 2019-06-20 19:00 | NUR ---
RECEIVED REPORT FROM PREVIOUS NURSE. CALL LIGHT WITHIN REACH. PATIENT IN BED.
--- NOTE | 2019-06-20 19:31 | NUR ---
Report given to on coming nurse, walking rounds complete.
[2019-06-20] MEDS: ZOLPIDEM TARTRATE 5 MG TAB PO SCH (20:38)
[2019-06-20] MEDS: INSULIN GLARGINE 100 UNITS/ML VIAL SQ SCH (20:39)
[2019-06-20] MEDS: ATORVASTATIN 40 MG TAB PO SCH (20:39)
--- NOTE | 2019-06-20 22:30 | NUR ---
Patient wiped down and diaper and sheets changed. He expected someone during the day to ask him so he was upset. He was happy that I asked him and changed him.
[2019-06-21] VITALS (8 sets, daily range): BP systolic 140–187; BP diastolic 67–95
[2019-06-21] MEDS: HYDRALAZINE HCL 20 MG/ML VIAL IV PRN (00:51)
[2019-06-21] MEDS: HYDROMORPHONE 1MG/1ML INJ IV PRN ×4 (02:12→20:50)
[2019-06-21 05:20] LABS: BASOPHILS % 0.3 % (0.0-1.0); EOSINOPHILS % 9.2 % (0.0-6.0); HEMATOCRIT 25.3 % (38.2-49.6); HEMOGLOBIN 7.8 g/dL (14.0-18.0); LYMPHOCYTES # (AUTO) 0.8 (1.0-3.2); LYMPHOCYTES % 7.6 % (18.0-39.1); MEAN CORPUSCULAR HEMOGLOBIN 28.9 pg (28-32); MEAN CORPUSCULAR HGB CONC 30.8 g/dL (31-35); MEAN CORPUSCULAR VOLUME 93.7 fL (81-99); MONOCYTES # (AUTO) 0.8 (0.2-0.8); MONOCYTES % 7.9 % (4.4-11.3); NEUTROPHILS # (AUTO) 7.7 (2.1-6.9); NEUTROPHILS % 74.5 % (38.7-80.0); PLATELET COUNT 251 x10e3/uL (140-360); RED CELL DISTRIBUTION WIDTH 15.1 % (11.7-14.4)
[2019-06-21 05:40] LABS: ANION GAP 13.9 mmol/L (8-16); CREATININE, SERUM 7.35 mg/dL (0.72-1.25); POTASSIUM 3.9 mmol/L (3.5-5.1)
[2019-06-21 05:42] LABS: CALCIUM 6.7 mg/dL (8.4-10.2)
--- NOTE | 2019-06-21 05:50 | NUR ---
CALLED DR. BURNETT OFFICE TO TELL THEM THE PATIENT HAS A CRITICAL LAB VALUE OF A CALCIUM OF 6.7. AMY CORONA SAID TO CALL THE [employer]
--- NOTE | 2019-06-21 05:53 | NUR ---
CALLED DR. CHENG OFFICE AND TOLD THEM I HAD A CRITICAL LAB VALUE FOR THE PATIENT. THE ANSWERING DRUM DRIER SAID HE WILL PAGE DR. CHENG AND IF HE DOES NOT CALL BACK TO CALL AGAIN.
--- NOTE | 2019-06-21 07:00 | NUR ---
Received bedside shift report from off going nurse. Patient in stable condition, no s/s of distress noted. No complaints of pain. Telemetry in place and working. Bed in lowest position and locked. call light within reach. All personal items within reach.
--- NOTE | 2019-06-21 07:20 | NUR ---
CALLED AGAIN DR. CHENG OFFICE TO TALK TO DR. CHENG ABOUT THE PATIENT'S HAS A CRITICAL LAB VALUE. THE ANSWERING SERVICE MAN SAID HE WILL PAGE DR. CHENG AGAIN.
--- NOTE | 2019-06-21 07:25 | NUR ---
GAVE REPORT TO ONCOMING NURSE. CALL LIGHT WITHIN REACH. PATIENT ASLEEP IN BED. DID BEDSIDE ROUNDING
[2019-06-21] MEDS: CINACALCET 30 MG TAB PO SCH ×3 (07:30→17:12)
[2019-06-21] MEDS: LANTHANUM CARBONATE 1000 MG PO SCH ×3 (07:30→16:30)
--- NOTE | 2019-06-21 08:54 | NUR ---
WILL NOT BE ABLE TO START SNF REFERRAL UNTIL GET PT NOTES. WILL BEGIN WHEN HAVE ALL INFORMATION NEEDED FOR PACKET.
[2019-06-21] MEDS: METOPROLOL TARTRATE 50 MG TAB PO SCH ×2 (09:00→17:13)
[2019-06-21] MEDS: POLYETHYLENE GLYCOL 3350 17 GM PACK PO SCH ×2 (09:00→17:26)
[2019-06-21] MEDS: DOCUSATE SODIUM 100 MG CAP PO SCH ×2 (09:00→17:24)
[2019-06-21] MEDS: FAMOTIDINE 20 MG TAB PO SCH ×2 (09:09→17:12)
[2019-06-21] MEDS: ASPIRIN 81 MG CHEW TAB PO SCH (09:10)
[2019-06-21] MEDS: CALCIUM ACETATE 667 MG GELCAP PO SCH ×3 (09:10→17:13)
[2019-06-21] MEDS: GABAPENTIN 100 MG CAP PO SCH (09:11)
[2019-06-21] MEDS: INSULIN LISPRO 100 UNIT/1 ML 3ML VIAL SQ SCH ×7 (10:03→20:50)
--- NOTE | 2019-06-21 10:40 | NUR ---
[id number] LATE ENTERY 06/20/2019
[2019-06-21] MEDS ORDERED: BISACODYL 5 MG TAB EC PO PRN (11:15)
[2019-06-21] MEDS: CLOPIDOGREL BISULFATE 75 MG TAB PO SCH (14:24)
[2019-06-21] MEDS: AMLODIPINE BESYLATE 10 MG TAB PO SCH (14:39)
--- NOTE | 2019-06-21 15:46 | Progress Note ---
DATE: 06/21/2019 Cardiology Progress Note SUBJECTIVE: Pain adequately controlled. Denies chest pain or shortness of breath. No new complaints. OBJECTIVE: VITAL SIGNS: Temperature 98.4, heart rate 70, blood pressure 187/83, respiratory rate 19, O2 saturation 100%. GENERAL: In no acute distress, alert. NECK: No JVD. CHEST: Clear to auscultation. CARDIOVASCULAR: Regular rate and rhythm. Normal S1 and S2. No S3 or S4. ABDOMEN: Soft. Bowel sounds positive. EXTREMITIES: Trace edema to the left lower extremity. Right BKA covered with dressings. CARDIOVASCULAR MEDICATIONS: Reviewed. Atorvastatin 40 mg at bedtime, metoprolol tartrate 100 mg b.i.d., aspirin 81 mg daily, clopidogrel 75 mg daily. LABORATORY DATA: Studies reviewed. Sodium 137, potassium 3.9, chloride 101, bicarbonate 26, BUN 26, creatinine 7.3, glucose 353. White blood cells 10.3, hemoglobin 7.8, platelets 251. INR 1.05, PTT 14.4, PTT 39.6. AST 24, ALT 7, and alkaline phosphatase 83, total bilirubin is 0.4. ASSESSMENT: 1. A 63-year-old man with peripheral vascular disease status post right below knee amputation, coronary artery disease with proximal left anterior descending artery drug-eluting stent in the setting of recent [id number] myocardial infarction in April 2019 done at [facility]. 2. Hypertension, dyslipidemia, diabetes. 3. End-stage renal disease. RECOMMENDATIONS: Continue current cardiovascular medications. Post dialysis, resume beta-beba and rest of antihypertensives as needed. Continue pain control management. Continue close monitoring of left foot offloading as necessary. Overall await wound healing to the right BKA stump distal phalanx. MD LEX Toth/QUIQUE /[id number]
--- NOTE | 2019-06-21 15:54 | NUR ---
STILL NO PT NOTE FOR PACKET TO BE SENT FOR REFERRAL. WILL FOLLOW UP IN MORNING.
[2019-06-21] MEDS: GABAPENTIN 300 MG CAP PO SCH (17:13)
[2019-06-21] MEDS: HYDROCODONE/APAP 10MG-325MG TAB PO PRN (17:58)
--- NOTE | 2019-06-21 19:00 | NUR ---
Bedside shift report given to oncoming nurse. patient in stable condition, no s/s of distress. No complaints of pain. Telemetry in place and working. Bed in lowest position and locked. Call light within reach. All personal items within reach. Addendum: 06/21/19 at 2020 by Jenna Orellana RN bed alarm in place and working.
[2019-06-21] MEDS: ZOLPIDEM TARTRATE 5 MG TAB PO SCH (20:50)
[2019-06-21] MEDS: ATORVASTATIN 40 MG TAB PO SCH (20:50)
--- NOTE | 2019-06-21 20:50 | NUR ---
PATIENT IS RESTING IN BED AOX3, NO SIGNS OF RESPIRATORY DISTRESS NOTED. PATIENT VOICES PAIN AT A LEVEL OF 10 AND WAS MEDICATED ORDERED. IMMOBILIZER IS INTACT ON RIGHT LEG, NO VOICE OF DISCOMFORT FROM PATIENT NOTED. BED IS IN LOWEST POSITION, BOTH SIDE RAILS ARE UP, BED ALARM IS ON, CALL LIGHT IS WITHIN EASY REACH, WILL CONTINUE TO MONITOR.
[2019-06-21] MEDS ORDERED: INSULIN GLARGINE 100 UNITS/ML VIAL SQ SCH (21:00)
[2019-06-22 00:45] VITALS: BP 144/75
[2019-06-22] MEDS: HYDROMORPHONE 1MG/1ML INJ IV PRN ×3 (04:39→14:49)
[2019-06-22 05:21] VITALS: BP 152/77
[2019-06-22 05:51] LABS: ANION GAP 14.8 mmol/L (8-16); CALCIUM 7.3 mg/dL (8.4-10.2); CREATININE, SERUM 6.43 mg/dL (0.72-1.25); POTASSIUM 3.8 mmol/L (3.5-5.1)
[2019-06-22 05:53] LABS: BASOPHILS # (AUTO) 0.1 (0.0-0.1); BASOPHILS % 0.5 % (0.0-1.0); EOSINOPHILS # (AUTO) 1.1 (0.0-0.4); EOSINOPHILS % 8.3 % (0.0-6.0); HEMATOCRIT 27.8 % (38.2-49.6); HEMOGLOBIN 8.8 g/dL (14.0-18.0); LYMPHOCYTES % 7.8 % (18.0-39.1); MEAN CORPUSCULAR HEMOGLOBIN 29.5 pg (28-32); MEAN CORPUSCULAR HGB CONC 31.7 g/dL (31-35); MEAN CORPUSCULAR VOLUME 93.3 fL (81-99); MONOCYTES # (AUTO) 1.2 (0.2-0.8); NEUTROPHILS # (AUTO) 9.7 (2.1-6.9); NEUTROPHILS % 73.9 % (38.7-80.0); PLATELET COUNT 263 x10e3/uL (140-360); RED BLOOD COUNT 2.98 x10e6/uL (4.3-5.7)
[2019-06-22] MEDS ORDERED: DEXTROSE 50% SYRINGE 50 ML IV PRN (06:45)
--- NOTE | 2019-06-22 06:54 | Progress Note ---
DATE: 06/21/2019 SUBJECTIVE: Mr. Bautista is a pleasant 63-year-old gentleman, admitted to the hospital with infected wound of the right foot, which is red gangrene. The patient had extensive debridement of the right foot with amputation of 5 toes and then exposed metatarsal bones, which showed no sign of improvement and actually got worse. Finally, decision was made to do BKA. Now, the patient is status post BKA and comfortable in bed. REVIEW OF SYSTEMS: Wants more pain medication. Other than that, no nausea, vomiting, fever, chills, chest pain, shortness of breath, headache, dysuria, or polyuria. ALLERGIES: HEPARIN. MEDICATIONS: Medication list reviewed. As far as Infectious Disease point of view, the patient is off antibiotics. LABORATORY STUDIES: White blood cells 10.3, platelet 251. Creatinine of 7.35, potassium 3.9, sodium 137. Hepatitis panel was negative. MICROBIOLOGY STUDIES: The foot culture was polymicrobial bacterial infection; however, the patient is status post BKA currently. RADIOLOGY STUDIES: No new radiology studies available. PHYSICAL EXAMINATION: GENERAL: Alert and oriented, in no acute distress. CV: S1 and S2. CHEST: Equal expansion, clear to auscultation. ABDOMEN: Soft and nontender. No distention. HEENT: Moist. No pallor. No JVD. EXTREMITIES: Right lower extremity BKA dressed local care. ASSESSMENT AND PLAN: 1. Infected right foot, nonhealing with progressive worsening, now status post below-knee amputation. 2. End-stage renal disease. 3. Hypertension. 4. Diabetes mellitus type 2. 5. Debility. 6. Leukocytosis, resolved. The patient is status post below-knee amputation, infection has been resolved and currently off the antibiotics. Continue with wound care. Continue with PT/OT. Monitor the patient clinically and follow with the labs. Further management of this patient is based on daily findings on laboratory and physical examination. Please see chart as well for today's documentation. Dictated by Ry Betancur PA-C (Al) Darian Delgadillo MD /MODL /[id number]
--- NOTE | 2019-06-22 07:00 | NUR ---
Received bedside shift report from off going nurse. Patient in stable condition, no s/s of distress noted. No complaints of pain. Telemetry in place and working. Bed alarm in place and working. Bed in lowest position and locked. call light within reach.
--- NOTE | 2019-06-22 07:00 | NUR ---
LAB CALLED WITH A CRITICAL OF 55 BLOOD SUGAR. RECHECKED VIA FINGER STICK AND BLOOD SUGAR WAS 58. D5 WAS GIVEN TO PATIENT, NO SIGNS OF DISTRESS NOTED, CONTINUING TO MONITOR.
[2019-06-22] MEDS: LANTHANUM CARBONATE 1000 MG PO SCH ×3 (07:30→16:30)
[2019-06-22] MEDS: INSULIN LISPRO 100 UNIT/1 ML 3ML VIAL SQ SCH ×6 (07:30→16:57)
[2019-06-22 08:00] VITALS: BP 130/60
[2019-06-22 08:09] VITALS: BP 130/60
[2019-06-22] MEDS: FAMOTIDINE 20 MG TAB PO SCH ×2 (08:32→16:47)
[2019-06-22] MEDS: CALCIUM ACETATE 667 MG GELCAP PO SCH ×3 (08:32→16:49)
[2019-06-22] MEDS: CINACALCET 30 MG TAB PO SCH ×3 (08:32→16:48)
[2019-06-22] MEDS: ASPIRIN 81 MG CHEW TAB PO SCH (08:33)
[2019-06-22] MEDS: DOCUSATE SODIUM 100 MG CAP PO SCH ×2 (08:33→16:48)
--- NOTE | 2019-06-22 08:33 | NUR ---
SPOKE WITH PT AND ABLE TO GIVE CHOICES IN THE COMMUNITY. HE SIGNED CHOICE FOR [facility]. FILED IN CHART, COMPLETED PAS[facility], RTF AND PUT WITH PACKET, WILL OBTAIN SIGNATURE FOR COVID FORM AND FAX CLINICALS TO FACILITY.
[2019-06-22] MEDS: METOPROLOL TARTRATE 50 MG TAB PO SCH ×2 (08:34→16:50)
[2019-06-22] MEDS: POLYETHYLENE GLYCOL 3350 17 GM PACK PO SCH ×2 (08:34→16:51)
[2019-06-22] MEDS: AMLODIPINE BESYLATE 10 MG TAB PO SCH (08:35)
[2019-06-22] MEDS: CLOPIDOGREL BISULFATE 75 MG TAB PO SCH (08:35)
[2019-06-22] MEDS: GABAPENTIN 300 MG CAP PO SCH (08:35)
[2019-06-22] MEDS ORDERED: CLOPIDOGREL BISULFATE 75 MG TAB PO SCH (09:00)
--- NOTE | 2019-06-22 09:13 | NUR ---
PROVIDED IMM, SIGNED FILED IN CHART AND LEFT COPY AT BEDSIDE FOR PERSONAL RECORDS. FAXED CLINICALS TO [facility].
--- NOTE | 2019-06-22 10:00 | Progress Note ---
DATE: SUBJECTIVE: Please refer to the chart for more information. This case was discussed with Dr. Delgadillo in detail. Currently comfortable in bed, in no acute distress, no nausea, vomiting, fever, chills, chest pain, shortness of breath, headache, dysuria, or polyuria. Pain is controlled. ALLERGIES: HEPARIN. MEDICATIONS: Reviewed. As far as Infectious Disease point of view, the patient is off antibiotics. LABORATORY STUDIES: White blood cells 13.15, hemoglobin 8.8, and platelet count of 263. No new BMP. The patient is on dialysis. No new serology studies available. As far as microbiology, no new microbiology studies are available. RADIOLOGY STUDIES: No new radiology studies are available. PHYSICAL EXAMINATION: VITAL SIGNS: Temperature is 97.8, pulse of 16, respirations 14, and blood pressure 130/60. GENERAL: Alert and oriented, no acute distress, very pleasant. Appetite is good. CV: S1-S2. CHEST: Equal expansion. Clear to auscultation. No acute distress. ABDOMEN: Soft and nontender. No distention. HEENT: Moist. No pallor. No JVD. ASSESSMENT AND PLAN: 1. A very pleasant 63-year-old gentleman with infected right foot, failed treatment, status post below the knee amputation, now antibiotics stopped. 2. End-stage renal disease, on dialysis. 3. Diabetes mellitus type 2. 4. Leukocytosis, slightly up again. Recheck CBC for tomorrow. 5. Debility-multifactorial. Continue with PT/OT. 6. Hypertension. We will continue to monitor the patient's left foot 2nd toe. There is nothing acute going on, but however, seems like has a potential to develop infection. At this point, no acute finding. Again, this case was discussed with Dr. Delgadillo. The patient was seen with the nurse in his room. Please also refer to the chart for more information. Dictated by Ry Betancur PA-C (Al) Darian Delgadillo MD /MODL /[id number]
--- NOTE | 2019-06-22 10:27 | NUR ---
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
[2019-06-22] MEDS: HYDROCODONE/APAP 10MG-325MG TAB PO PRN (10:44)
[2019-06-22] MEDS ORDERED: Calcium Acetate PO (10:53)
[2019-06-22] MEDS ORDERED: Hydrocodone/Apap 10MG-325MG PO (10:53)
[2019-06-22] MEDS ORDERED: ASPIRIN CHEW81 MG PO (10:53)
[2019-06-22] MEDS ORDERED: GABAPENTIN300 MG PO (10:53)
[2019-06-22] MEDS ORDERED: Atorvastatin PO (10:53)
[2019-06-22] MEDS ORDERED: AMBIEN5 MG PO (10:53)
[2019-06-22] MEDS ORDERED: Insulin Glargine SQ (10:53)
[2019-06-22] MEDS ORDERED: NORVASC10 MG PO (10:53)
[2019-06-22] MEDS ORDERED: Insulin Lispro SQ (10:53)
--- NOTE | 2019-06-22 10:56 | NUR ---
GOES TO [facility] ON [address] AT 7 AM, GAVE PERMISSION FOR FACILITY TO TRANSFER CLOSER TO [place].
[2019-06-22] MEDS ORDERED: LYRICA75 MG PO ×2 (11:38→12:13)
[2019-06-22] MEDS ORDERED: PREGABALIN 75 MG CAP PO SCH ×2 (11:45→12:15)
[2019-06-22] MEDS ORDERED: LYRICA25 MG PO (11:57)
[2019-06-22 12:07] VITALS: BP 118/54
[2019-06-22] MEDS ORDERED: PREGABALIN 25 MG CAP PO SCH (13:00)
[2019-06-22 16:17] VITALS: BP 104/49
--- NOTE | 2019-06-22 18:26 | Progress Note ---
DATE: 06/22/2019 Cardiology Progress Note SUBJECTIVE: Denies chest pain or shortness of breath. Complaining of right BKA site discomfort for which opiates are being given. OBJECTIVE: VITAL SIGNS: Temperature 98.7, heart rate 70, blood pressure 118/54, respiratory rate 18, O2 saturation 99%. GENERAL: No acute distress, alert. NECK: No JVD. CHEST: Clear to auscultation. CARDIOVASCULAR: Regular rate and rhythm. Normal S1 and S2. No S3 or S4. ABDOMEN: Soft. Bowel sounds positive. EXTREMITIES: Right BKA. Left lower extremity trace edema. CARDIOVASCULAR MEDICATIONS: Reviewed. Atorvastatin 40 mg at bedtime, metoprolol tartrate 100 mg b.i.d., aspirin 81 mg daily, clopidogrel 75 mg daily, amlodipine 10 mg daily. LABORATORY DATA: Studies reviewed. Sodium 136, potassium 3.8, chloride 98, bicarbonate 27, BUN 26, creatinine 6.4, glucose 55. White blood cells 13.1, hemoglobin 8.8, platelets 263. ASSESSMENT: A 63-year-old man with coronary artery disease, peripheral artery disease, diabetes, hypertension, dyslipidemia, end-stage renal disease, anemia, status post right below knee amputation. RECOMMENDATIONS: 1. Continue current cardiovascular medications. 2. Pain control as needed. Romel Astudillo MD AFArt/MODL /[id number]
--- NOTE | 2019-06-22 18:37 | NUR ---
Patient discharged to [facility] ([facility]) - Patient off the unit @ 1807 via stretcher. Accompanied by 2 EMS transfer packet given to EMS. Patient in stable condition, no s/s of distress noted. No pain noted. IV access removed with tip intact. Telemetry removed. Immobilizer applied to right BKA. All personal items taken with patient.
--- NOTE | 2019-06-22 19:31 | Discharge Summary ---
ADMISSION DIAGNOSES: 1. Right foot gangrene with cellulitis. 2. End-stage renal disease. 3. Type 2 diabetes with end-stage renal disease. 4. Hypertension with end-stage renal disease. 5. Ambulatory dysfunction. DISCHARGE DIAGNOSES: 1. Right foot gangrene with cellulitis. 2. End-stage renal disease. 3. Type 2 diabetes with end-stage renal disease. 4. Hypertension with end-stage renal disease. 5. Ambulatory dysfunction. 6. Proteus vulgaris. 7. Enterococcus. 8. Pseudomonas. 9. Klebsiella and Escherichia coli of the wound, present on admission. HISTORY: 1. End-stage renal disease. 2. Type 2 diabetes. 3. Hypertension. 4. CAD. 5. Secondary hyperparathyroidism. 6. Peripheral neuropathy. 7. Hyperlipidemia. SURGICAL HISTORY: 1. Left foot I and D and partial resection of the 1st metatarsal. 2. Right AV fistula. 3. Neck surgery. 4. Back surgery.. 5. Thyroid surgery. 6. Left foot bunionectomy. FAMILY HISTORY: Noncontributory. HOSPITAL COURSE: A 63-year-old male, admitted from Dr. Da Silva's office with gangrene to the right foot with cellulitis. He says about 2 weeks ago his foot began hurting more. He denies chills and drainage. On admission, chest x-ray was negative. Foot x-ray showed subcutaneous emphysema of the forefoot, particularly surrounding the great toe. No gross radiographic evidence of osteomyelitis of digit 1 or 2. 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 The patient then had amputation of right great toe, 2nd toe, 3rd toe, 4th toe, and 5th toe along with extensive I and D to multiple areas of the right foot down to the bone. Arterial Doppler showed significant arterial stenosis bilaterally, but no DVT per venous Doppler. Echo showed an EF of 55%. Cardiology was consulted, who said that the patient had extensive vhzvd-wgh-fnzt vessel disease and said the surgery was high risk. After surgery, the patient's wound did not heal well. The patient went back in for and refused further amputation on multiple occasions before finally agreeing to amputation. He then was taken to the OR and had a right [id number] amputation with Dr. Arguelles. Per Infectious Disease, at this point, the antibiotics could be stopped. The [facility] and physical therapy. He will be nonweightbearing to the right BKA. He will continue home medicines and follow up with primary care in 1 to 2 weeks. The patient understands discharge instructions and agrees to plan. Vital signs are stable. The patient is afebrile. Dictated by Mary Glover NP Alton Hussein MD CINDY/MODL /[id number]
== END 2019-06-22 18:07 | DRG 853 ==
LOC: MED/SURG2 17:51
PROVIDERS: ADMIT Internal Medicine; ATTEND Internal Medicine
PROC: 5A1D70Z Performance of Urinary Filtration, Intermittent, Less than 6 Hours Per Day (ICD-10-PCS; 2019-06-10)
PROC: 0Y6X0Z0 Detachment at Right 5th Toe, Complete, Open Approach (ICD-10-PCS; 2019-06-11)
PROC: 0Y6V0Z0 Detachment at Right 4th Toe, Complete, Open Approach (ICD-10-PCS; 2019-06-11)
PROC: 0Y6T0Z0 Detachment at Right 3rd Toe, Complete, Open Approach (ICD-10-PCS; 2019-06-11)
PROC: 0Y6R0Z0 Detachment at Right 2nd Toe, Complete, Open Approach (ICD-10-PCS; 2019-06-11)
PROC: 0Y6P0Z0 Detachment at Right 1st Toe, Complete, Open Approach (ICD-10-PCS; principal; 2019-06-11 17:00)
PROC: 30243N1 Transfusion of Nonautologous Red Blood Cells into Central Vein, Percutaneous Approach (ICD-10-PCS; 2019-06-16)
PROC: 0Y6H0Z2 Detachment at Right Lower Leg, Mid, Open Approach (ICD-10-PCS; 2019-06-18)
DX: A41.81 Sepsis due to Enterococcus (principal); M72.6 Necrotizing fasciitis; N18.6 End stage renal disease; M86.8X7 Other osteomyelitis, ankle and foot; I12.0 Hypertensive chronic kidney disease with stage 5 chronic kidney disease or end stage renal disease; E11.52 Type 2 diabetes mellitus with diabetic peripheral angiopathy with gangrene; I96 Gangrene, not elsewhere classified; N25.81 Secondary hyperparathyroidism of renal origin; E11.69 Type 2 diabetes mellitus with other specified complication; A41.89 Other specified sepsis; B96.89 Other specified bacterial agents as the cause of diseases classified elsewhere; Z79.4 Long term (current) use of insulin; E11.22 Type 2 diabetes mellitus with diabetic chronic kidney disease; Z99.2 Dependence on renal dialysis; R26.9 Unspecified abnormalities of gait and mobility; E11.319 Type 2 diabetes mellitus with unspecified diabetic retinopathy without macular edema; B96.20 Unspecified Escherichia coli [E. coli] as the cause of diseases classified elsewhere; B96.1 Klebsiella pneumoniae [K. pneumoniae] as the cause of diseases classified elsewhere; M85.871 Other specified disorders of bone density and structure, right ankle and foot; E11.51 Type 2 diabetes mellitus with diabetic peripheral angiopathy without gangrene; I25.10 Atherosclerotic heart disease of native coronary artery without angina pectoris; Z95.5 Presence of coronary angioplasty implant and graft; B95.2 Enterococcus as the cause of diseases classified elsewhere; B96.5 Pseudomonas (aeruginosa) (mallei) (pseudomallei) as the cause of diseases classified elsewhere
CPT/HCPCS: 36415; 71046; 80048; 80053; 80061; 82270; 82948; 83036; 83735; 84100; 84443; 85025; 85610; 85651; 85730; 86140; 86704; 86706; 86850; 86900; 86920; 87071; 87075; 87186; 87205; 87340; 87350; 88304; 88305; 88307; 88311; 93005; 93306; 93925; 93970; 96372; 97139; J0360; J0610; J0720; J1100; J1170; J1815; J2001; J2250; J2270; J2405; J2543; J3010; J3370; J7030; J7040; J7050; J7799; P9016; Q0162

== ENCOUNTER 2019-07-29 14:18 | Inpatient (IN) | payer MEDICARE, OTHER ==
[~2019-07-29] VITALS: Ht 182.9 cm; Wt 81.6 kg
[~2019-07-29 14:18] MED LIST changes: +AMBIEN5 MG PO; +ASPIRIN CHEW81 MG PO; +Atorvastatin PO; +Calcium Acetate PO; +GABAPENTIN300 MG PO; +Hydrocodone/Apap 10MG-325MG PO; +Insulin Glargine SQ; +Insulin Lispro SQ; +LYRICA25 MG PO; +LYRICA75 MG PO; +NORVASC10 MG PO
--- OUTSIDE RECORDS SUMMARY | 2019-07-29 14:20 | XMS REPORT | Clinical Summary ---
Author Author [facility] Organization [facility] Address Unknown Phone Unavailable Care Team Providers Care Baby Formula Worker Name Role Phone PCP Unavailable Allergies No Known Allergies Medications End Date Status Medication Sig Dispensed Refills Start Date Active VICODIN 5 MG-500 MG take 1 tablet 10 0 09/08 TABIndications: Dental by oral route 0 caries every 4-6 hours as needed for pain Active CHLORHEXIDINE GLUCONATE place 15 400cc 0 0.12 % milliliters 0 MOUTHWASHIndications: in the mouth Dental caries by mucous membrane route 2 times per day (after meals), swish in mouth for 30 seconds then spit out Active simvastatin (ZOCOR) 20 mg Take 20 mg by 0 tablet mouth at bedtime. Active glipiZIDE (GLUCOTROL) 10 Take 10 mg by 0 mg tablet mouth 2 times daily (before meals). Active metoprolol (TOPROL XL) Take 100 mg 0 100 mg extended release by mouth tablet daily. Active amitriptyline (ELAVIL) 50 Take 50 mg by 0 mg tablet mouth at bedtime. Active Problems No known active problems Immunizations Name Administration Dates Next Due Influenza <Unspecified> 12/27/2015 Social History Date Tobacco Use Types Packs/Day Years Used Never Smoker Drinks/Week oz/Week Comments Alcohol Use No Sex Assigned at Date Recorded Not on file Industry Job Start Date Occupation Not on file Not on file Not on file Travel End Travel History Travel Start No recent travel history available. Last Filed Vital Signs Not on file Plan of Treatment Health Maintenance Due Date Last Done Comments Colorectal Cancer Scrn 10/09/2007 Annual (FIT/FOBT) Age 50 to 75 IMM Influenza Seasonal 12/09/2019 12/27/2015 Oct to May (>/= 19 yrs) Results Not on fileafter 07/28/2018 Insurance Type Payer Benefit Subscriber ID Effective Phone Address Plan / Dates Group [employer] SELF-PAY SELF-PAY xxxxxx 2016- [phone] [id number] [place] [address] Guarantor Name Account Relation to Date of Phone Daisy lee Address Type Patient PAVAN HERNANDEZ Personal/F Head of 1955 [address] [facility] (Home) [place], [place] [address] (Self)
--- OUTSIDE RECORDS SUMMARY | 2019-07-29 14:21 | XMS REPORT | Clinical Summary ---
Author Author [facility] Address Unknown Phone Unavailable Care Team Providers Care Special Agent Name Role Phone Zuhair Hyatt MD PCP Allergies Comments Active Allergy Reactions Severity Noted Date "Pt states it turns his lips black and starts to peel" Iodinated Contrast Media Other (See 04/30/2019 Comments) "Pt states it turns his lips black and starts to peel" Iodine Other (See 11/12/2018 Comments) Medications End Date Status Medication Sig Dispensed Refills Start Date Active lanthanum (FOSRENOL) 1000 Chew 1,000 mg 0 MG chewable tablet 3 (three) times a day with meals. Active calcium acetate (PHOSLO) Take 1,334 mg 0 667 mg capsule by mouth 3 (three) times a day with meals. Active traMADol (ULTRAM) 50 mg Take 50 mg by 0 tablet mouth every 9 12 (twelve) hours as needed for moderate pain. Active SENSIPAR 60 mg tablet Take 60 mg by 4 05/09/19 1 mouth daily. 9 Active gabapentin (NEURONTIN) Take 100 mg 0 100 mg capsule by mouth 2 (two) times a day. Active insulin ASPART (NovoLOG) Inject 10 0 100 unit/mL injection Units under the skin 3 (three) times a day before meals. Active metoprolol tartrate Take 100 mg 0 (LOPRESSOR) 100 mg tablet by mouth 2 (two) times a day. Active clopidogreL (PLAVIX) 75 Take 75 mg by 0 mg tablet mouth daily. 04/23/2020 Active isosorbide mononitrate Take 1 tablet 30 tablet 11 0 (IMDUR) 30 MG 24 hr (30 mg total) 0 tablet by mouth daily. Active calcium acetate,phosphat Take 1,334 mg 0 bind, (PHOSLO) 667 mg by mouth with capsule snacks. 05/03/2020 Active clonIDINE HCl (CATAPRES) Take 1 tablet 60 tablet 11 0.2 MG tablet (0.2 mg 0 total) by mouth 2 (two) times a day. 05/03/2020 Active nitroglycerin (NITROSTAT) Place 1 90 tablet 12 0.4 MG SL tablet tablet (0.4 0 mg total) under the tongue every 5 (five) minutes as needed for chest pain. 05/03/2020 Active pentoxifylline (TRENTal) Take 1 tablet 60 tablet 11 400 mg CR tablet (400 mg 0 total) by mouth 2 (two) times a day. 04/21/2019 Discontinued (Med List Clean up) insulin lispro (HumaLOG) Humalog 0 100 unit/mL cartridge 04/21/2019 Discontinued (Med List Clean up) metoprolol succinate XL Take 100 mg 0 (TOPROL-XL) 100 mg 24 hr by mouth tablet daily. 04/21/2019 Discontinued (Med List Clean up) ofloxacin (OCUFLOX) 0.3 % 0 ophthalmic solution 9 04/21/2019 Discontinued (Med List Clean up) prednisoLONE acetate 0 (PRED FORTE) 1 % 9 ophthalmic suspension 08/02/2018 erythromycin 0.5% Place a 1/2 1 g 0 07/27/19 1 (ILOTYCIN) 5 mg/gram (0.5 inch ribbon 9 %) ophthalmic ointment of ointment into the left lower eyelid every 3 hrs 11/19/2018 ofloxacin (FLOXIN) 0.3 % Administer 5 3.5 mL 0 otic solution drops into 9 the left ear 2 (two) times a day for 7 days. 04/24/2019 Discontinued (Reorder) calcium acetate (PHOSLO) Take 1,334 mg 0 667 mg capsule by mouth with snacks. 05/25/2019 aspirin 81 mg chewable Chew 1 tablet 30 tablet 0 0 tablet (81 mg total) 0 daily for 30 days. 05/24/2019 atorvastatin (LIPITOR) 80 Take 1 tablet 30 tablet 0 MG tablet (80 mg total) 0 by mouth nightly for 30 days. 04/30/2019 Discontinued (Med List Clean up) calcium acetate (PHOSLO) 1,334 mg with 120 capsule 2 667 mg capsule snacks PRN 0 Active Problems Patient Care Coordination Note 07/07/2018 Evaluation Update. 06/19/[address] Bishop. Evaluation Update packet scanned into Media. ABO & Serologies Scanned into Media Problem Noted Date Claudication 04/30/2019 T2DM (type 2 diabetes mellitus) 04/30/2019 Unstable angina 04/21/2019 Dialysis AV fistula malfunction 08/27/2018 Overview: Added automatically from request for muller lorenzo [id number] Combined forms of age-related cataract of right eye 06/17/2018 End stage renal disease 07/22/2016 Overview: Added automatically from request for muller rgery [id number] Dependence on hemodialysis 07/22/2016 Overview: Added automatically from request for muller rgery [id number] Essential hypertension 12/19/2015 Compression of vein 12/19/2015 End-stage renal disease 12/19/2015 Vascular device, implant, or graft complication 12/08 Dialysis complication 12/19/2015 Encounters Care Team Description Date Type Specialty Manuel Monroe, NIKO Med Refill 07/18/2019 Refill Cardiology Danny Buck MD Claudication (HCC) (Primary Dx) 05/18/2019 Office Visit General Surgery 05/18/2019 Travel Sebas Hi MD bilateral femoral runoff studies [[id number] (CPT)] 05/03/2019 Surgery Procedural Cardiolo Tremayne Kam MD Arriaga, Michael, MD Shehata, Mohamed M., MD Claudication (HCC) (Primary Dx); Arterial insufficiency of lower extremity (HCC); End-stage renal disease (HCC); Dependence on hemodialysis (HCC); Essential hypertension; Type 2 diabetes mellitus with other specified complication, unspecified whether mcfp insulin use (HCC) 04/29/2019 [facility] Internal [facility] dicine - Encounter 05/04/2019 Edy Lugo MD Selective coronary angiography [[id number] (C PT)] 04/22/2019 Surgery Procedural Cardiolo Al Monahan MD Joglekar, Swati, MD Patel, Minh Gilbert, MD Unstable angina (HCC) (Primary Dx) 04/21/2019 [facility] Internal Me dicine - Encounter 04/24/2019 Danny Buck MD Compression of vein; Peripheral vascular disorder (HCC); End-stage renal disease (HCC); Dependence on hemodialysis (HCC) 04/20/2019 Hospital Radiology Encounter Elizabeth Payne MA Peripheral vascular disorder (HCC) (Prim maury Dx); Compression of vein; End-stage renal disease (HCC); Dependence on hemodialysis (HCC) 04/19/2019 Orders Only General Surgery Yajaira Rodríguez MA Claudication of left lower extremity (HC C) (Primary Dx) 04/15/2019 Orders Only General Surgery Danny Buck MD Peripheral vascular disorder (HCC) (Prim maury Dx) 04/13/2019 Office Visit General Surgery Neo Moya MD 01/19/2019 Lab Lab Andrew Rhodes, Postoperative hemorrhage involving circu latory system following non-circulatory system procedure (Primary Dx) 01/05/2019 Emergency Emergency Medicine Neo Moya MD 12/18/2018 Lab Lab Nate Aj, Acute otitis externa of left ear, unspec ified type (Primary Dx); Impacted cerumen of left ear 11/12/2018 Emergency Emergency Medicine Mc Feliciano RN Waitlist Status Update 11/06/2018 Documentation Transplant Rica Poe RN Transplant Organ Offer 11/05/2018 Telephone Transplant Bret Marie MD End stage renal disease (HCC) 11/04/2018 Lab Lab Michell Peck RN End stage renal disease (HCC) (Primary D x) 11/04/2018 Orders Only Transplant Bret Marie MD ESRD (end stage renal disease) (HCC) 11/03/2018 Lab Lab Ilda Adler RN ESRD (end stage renal disease) ([facility]LY [facility]) (Pr imary Dx) 11/02/2018 Orders Only Transplant Neo Moya MD 10/20/2018 Lab Lab Destiney Atkins RN 10/20/2018 Abstract Transplant Hamida Bauer BA 10/04/2018 Documentation Transplant Neo Moya MD 10/03/2018 Lab Lab Sha Robles RN 10/03/2018 Orders Only Transplant Neo Moya MD 09/11/2018 Lab Lab Rica Poe RN 09/06/2018 Documentation Transplant Yfn Amezquita MD ESRD (end stage renal disease) ([facility]) 09/04/2018 Lab Lab Mc Feliciano RN ESRD (end stage renal disease) ([facility]) (Pr imary Dx) 09/04/2018 Orders Only Transplant Michell Garcia MA Procedure 09/02/2018 Documentation Cardiovascular Neo Moya MD ESRD (end stage renal disease) ([facility]) 08/28/2018 Lab Lab Marcellus Cruz RN Transplant Organ Offer 08/28/2018 Telephone Transplant Marcellus Cruz RN ESRD (end stage renal disease) ([facility]) (Pr imary Dx) 08/28/2018 Orders Only Transplant Theresa Mejia MA Malfunction of arteriovenous dialysis fi stula, initial encounter ([facility]) (Primary Dx); End stage renal disease ([facility]); Dependence on hemodialysis ([facility]) 08/27/2018 Prep for Cardiovascular Surgery Theresa Mejia MA Malfunction of arteriovenous dialysis fi stula, initial encounter ([facility]) (Primary Dx); End stage renal disease ([facility]); Dependence on hemodialysis ([facility]) 08/27/2018 Orders Only Cardiovascular Neo Moya MD 08/13/2018 Lab Lab Ilda Adler RN ESRD (end stage renal disease) ([facility]) (Pr imary Dx) 08/10/2018 Orders Only Transplant Rica Poe RN 08/02/2018 Documentation Transplant Rica Mirza MD End stage renal disease ([facility]) 08/01/2018 Lab Lab Michell Peck RN End stage renal disease ([facility]) (Primary D x) 08/01/2018 Orders Only Transplant Chelsie Payne RN Follow-up (communication from dialysis) 07/29/2018 Documentation Cardiovascular after 07/28/2018 Family History Medical History Relation Name Comments No Known Problems Father Hypertension Mother Diabetes Paternal Grandfather Hypertension Paternal Grandfather Kidney disease Paternal Grandfather Diabetes Paternal Grandmother Hypertension Paternal Grandmother Kidney disease Paternal Grandmother Diabetes Sister Kidney disease Sister Relation Name Status Comments Father Mother Alive Paternal Grandfather Paternal Grandmother Sister Social History Date Tobacco Use Types Packs/Day Years Used Never Smoker Smokeless Tobacco: Never Used Drinks/Week oz/Week Comments Alcohol Use none No Sex Assigned at Date Recorded Not on file Industry Job Start Date Occupation Not on file Not on file Not on file Travel End Travel History Travel Start No recent travel history available. Last Filed Vital Signs Reading Time Taken Comments Vital Sign 118/66 05/04/2019 3:39 PM [employer] Blood Pressure 65 05/04/2019 4:00 PM [employer] Pulse 36.1 C (97 F) 05/04/2019 3:39 PM AUTISM TUTOR Temperature 17 05/04/2019 4:36 AM AUTISM TUTOR Respiratory Rate 99% 05/04/2019 3:39 PM [employer]ISM T[employer]OR Oxygen Saturation - - Inhaled Oxygen Concentration 80 kg (176 lb 6.4 oz) 05/02/2019 11:02 AM AUTISM TUTOR Weight 182.9 cm (6') 04/29/2019 5:28 PM [employer]ISM T[employer]OR Height 23.92 04/29/2019 5:28 PM [employer]ISM [employer]OR Body Mass Index Plan of Treatment Health Maintenance Due Date Last Done Comments DIABETIC RETINAL EYE EXAM 1957 DIABETIC FOOT EXAM 10/09/1967 URINE MICROALBUMIN 10/09/1967 COLONOSCOPY SCREENING 10/09/2007 SHINGLES VACCINES (#1) 10/09/2007 INFLUENZA VACCINE 10/09/2019 12/27/2015 Implants Device Identifier Shelf Expiration Date Model / Serial / L ot Implanted Type Area Manufactur er [id number] / / Stent Eluting Coronary 3.50mm X Coronary N/A: N/A GALARZA 23mm Rapid-Exchange - [id number] Stents LABOR ATORI Implanted: 04/22/2019 at [facility] (Quantity not on file) 09/04/2021 [id number] / [id number] / [id number] Lens Iol Tecnis Monofocal Zcb 21.0d Intraocula Left: Eye GALARZA - [id number] - [id number] r Lens MEDICAL Implanted: Qty: 1 on 05/07/2018 by Implant OPT Sukhdev Helton MD at [facility] 08/15/2021 [id number] / [id number] / [id number] Lens Iol Tecnis Monofocal Zcb 20.5d Intraocula Right: Eye GALARZA - [id number] - [id number] r Lens MEDICAL Implanted: Qty: 1 on 06/18/2018 by Implant OPT ICS Sukhdev Jamil MD at [facility] 01/07/2021 [id number] System Clsr Sut Meditd 6fr Perclose Surgical N/A: N/A GALARZA Proglide - [id number] Implants; VASCULAR Implanted: 04/22/2019 at [facility] Expanders; [facility] (Quantity not on file) Extenders; Surgical Wires Procedures Comments Procedure Name Priority Date/Time Associated Diag nosis POC GLUCOSE Routine 05/04/2019 2:08 PM AUTISM TUTOR POC GLUCOSE Routine 05/04/2019 8:49 AM AUTISM TUTOR SMEAR REVIEW Routine 05/04/2019 5:10 AM AUTISM TUTOR HC COMPLETE BLD COUNT Routine 05/04/2019 W/AUTO DIFF 5:10 AM AUTISM TUTOR POC GLUCOSE Routine 05/03/2019 10:28 PM AUTISM TUTOR POC GLUCOSE Routine 05/03/2019 6:22 PM AUTISM T[employer]OR CV AORTOGRAM ABDOMINAL Routine 05/03/2019 AORTA 5:35 PM AUTISM TUTOR POC PANEL Routine 05/03/2019 3:30 PM AUTISM T[employer]OR ESTIMATED GFR Routine 05/03/2019 3:30 PM AUTISM TUTOR POC GLUCOSE Routine 05/03/2019 8:34 AM AUTISM TUTOR ESTIMATED GFR Routine 05/03/2019 7:25 AM AUTISM TUTOR BASIC METABOLIC PANEL Routine 05/03/2019 7:25 AM AUTISM T[employer]OR HC COMPLETE BLD COUNT Routine 05/03/2019 W/AUTO DIFF 7:25 AM AUTISM TUTOR POC GLUCOSE Routine 05/02/2019 9:13 PM AUTISM TUTOR POC GLUCOSE Routine 05/02/2019 6:25 PM AUTISM TUTOR HEMODIALYSIS Routine 05/02/2019 5:51 PM AUTISM TUTOR POC GLUCOSE Routine 05/02/2019 7:21 AM AUTISM TUTOR ESTIMATED GFR Routine 05/02/2019 5:11 AM AUTISM TUTOR BASIC METABOLIC PANEL Routine 05/02/2019 5:11 AM AUTISM TUTOR HC COMPLETE BLD COUNT Routine 05/02/2019 W/AUTO DIFF 5:11 AM AUTISM TUTOR POC GLUCOSE Routine 05/01/2019 8:55 PM AUTISM TUTOR POC GLUCOSE Routine 05/01/2019 5:03 PM AUTISM TUTOR POC GLUCOSE Routine 05/01/2019 1:01 PM AUTISM TUTOR POC GLUCOSE Routine 05/01/2019 11:43 AM AUTISM TUTOR US CAROTID DUPLEX Routine 05/01/2019 BILATERAL 10:15 AM AUTISM TUTOR POC GLUCOSE Routine 05/01/2019 7:36 AM AUTISM TUTOR ESTIMATED GFR Routine 05/01/2019 4:00 AM AUTISM TUTOR PHOSPHORUS LEVEL Routine 05/01/2019 4:00 AM AUTISM TUTOR BASIC METABOLIC PANEL Routine 05/01/2019 4:00 AM AUTISM TUTOR POC GLUCOSE Routine 04/30/2019 10:46 PM AUTISM TUTOR POC GLUCOSE Routine 04/30/2019 9:11 PM AUTISM TUTOR POC GLUCOSE Routine 04/30/2019 5:47 PM AUTISM TUTOR POC GLUCOSE Routine 04/30/2019 4:36 PM AUTISM TUTOR HEMODIALYSIS Routine 04/30/2019 2:27 PM AUTISM TUTOR POC GLUCOSE Routine 04/30/2019 1:51 PM AUTISM TUTOR POC GLUCOSE Routine 04/30/2019 12:00 PM AUTISM TUTOR POC GLUCOSE Routine 04/30/2019 11:13 AM AUTISM TUTOR POC GLUCOSE Routine 04/30/2019 8:12 AM AUTISM TUTOR URIC ACID LEVEL Routine 04/30/2019 5:00 AM AUTISM TUTOR LACTIC ACID LEVEL, SEPSIS Routine 04/30/2019 - NOW AND REPEAT 2X EVERY 5:00 AM AUTISM TUTOR 3 HOURS ESTIMATED GFR Routine 04/30/2019 5:00 AM AUTISM T[employer]OR HEMOGLOBIN A1C Routine 04/30/2019 5:00 AM AUTISM T[employer]OR LIPID PANEL Routine 04/30/2019 5:00 AM AUTISM TUTOR BASIC METABOLIC PANEL Routine 04/30/2019 5:00 AM AUTISM TUTOR POC GLUCOSE Routine 04/30/2019 4:21 AM AUTISM TUTOR XR FOOT 3 VW BILATERAL Routine 04/30/2019 2:28 AM AUTISM TUTOR LACTIC ACID LEVEL, SEPSIS Timed 04/30/2019 - NOW AND REPEAT 2X EVERY 12:50 AM AUTISM TUTOR 3 HOURS US DUPLEX ARTERIAL LOWER STAT 04/29/2019 EXTREMITY BILATERAL 9:30 PM AUTISM TUTOR US ANKLE BRACHIAL INDEX STAT 04/29/2019 8:00 PM AUTISM TUTOR ECG 12-LEAD STAT 04/29/2019 6:14 PM AUTISM TUTOR ESTIMATED GFR STAT 04/29/2019 5:59 PM AUTISM TUTOR LACTIC ACID LEVEL, SEPSIS STAT 04/29/2019 - NOW AND REPEAT 2X EVERY 5:59 PM AUTISM TUTOR 3 HOURS COMPREHENSIVE METABOLIC STAT 04/29/2019 PANEL 5:59 PM AUTISM TUTOR TYPE AND SCREEN Routine 04/29/2019 5:59 PM AUTISM T[employer]OR PARTIAL THROMBOPLASTIN STAT 04/29/2019 TIME (PTT) 5:59 PM AUTISM TUTOR PROTHROMBIN TIME WITH INR STAT 04/29/2019 5:59 PM AUTISM TUTOR HC COMPLETE BLD COUNT STAT 04/29/2019 W/AUTO DIFF 5:59 PM AUTISM TUTOR ECG ED PRELIMINARY Routine 04/29/2019 INTERPRETATION 5:43 PM AUTISM T[employer]OR POC GLUCOSE Routine 04/24/2019 7:20 AM AUTISM TUTOR MAGNESIUM LEVEL Routine 04/24/2019 6:30 AM AUTISM TUTOR ESTIMATED GFR Routine 04/24/2019 6:30 AM AUTISM TUTOR HC COMPLETE BLD COUNT Routine 04/24/2019 W/AUTO DIFF 6:30 AM AUTISM TUTOR BASIC METABOLIC PANEL Routine 04/24/2019 6:30 AM AUTISM TUTOR POC GLUCOSE Routine 04/23/2019 9:01 PM AUTISM TUTOR POC GLUCOSE Routine 04/23/2019 5:48 PM AUTISM TUTOR POC GLUCOSE Routine 04/23/2019 4:48 PM AUTISM TUTOR POC GLUCOSE Routine 04/23/2019 3:46 PM AUTISM TUTOR POC GLUCOSE Routine 04/23/2019 11:22 AM AUTISM TUTOR HC COMPLETE BLD COUNT Routine 04/23/2019 W/AUTO DIFF 8:00 AM AUTISM TUTOR POC GLUCOSE Routine 04/23/2019 7:22 AM AUTISM TUTOR ECG 12-LEAD STAT 04/23/2019 5:20 AM AUTISM TUTOR POC GLUCOSE Routine 04/23/2019 5:10 AM AUTISM TUTOR TROPONIN Routine 04/23/2019 4:00 AM AUTISM TUTOR ESTIMATED GFR Routine 04/23/2019 4:00 AM AUTISM TUTOR MAGNESIUM LEVEL Routine 04/23/2019 4:00 AM AUTISM TUTOR BASIC METABOLIC PANEL Routine 04/23/2019 4:00 AM AUTISM TUTOR POC GLUCOSE Routine 04/23/2019 2:41 AM AUTISM TUTOR POC GLUCOSE Routine 04/22/2019 11:42 PM AUTISM TUTOR POC GLUCOSE Routine 04/22/2019 11:38 PM AUTISM TUTOR POC GLUCOSE Routine 04/22/2019 9:18 PM AUTISM TUTOR POC GLUCOSE Routine 04/22/2019 6:17 PM AUTISM TUTOR POC GLUCOSE Routine 04/22/2019 3:49 PM AUTISM TUTOR CV PCI PERCUTANEOUS Routine 04/22/2019 CARDIAC ANGIOPLASTY 3:09 PM AUTISM TUTOR CV SELECTIVE CORONARY Routine 04/22/2019 ANGIOGRAPHY 3:09 PM AUTISM T[employer]OR ACTIVATED CLOTTING TIME Routine 04/22/2019 2:42 PM AUTISM TUTOR POC GLUCOSE Routine 04/22/2019 12:25 PM AUTISM TUTOR HEMODIALYSIS Routine 04/22/2019 12:20 PM AUTISM TUTOR POC GLUCOSE Routine 04/22/2019 11:33 AM AUTISM TUTOR POC GLUCOSE Routine 04/22/2019 9:18 AM AUTISM TUTOR POC GLUCOSE Routine 04/22/2019 6:41 AM AUTISM TUTOR ANTI XA, UNFRACTIONATED Routine 04/22/2019 6:40 AM AUTISM TUTOR POC GLUCOSE Routine 04/22/2019 6:19 AM AUTISM TUTOR POC GLUCOSE Routine 04/22/2019 5:05 AM AUTISM TUTOR POC GLUCOSE Routine 04/22/2019 2:15 AM AUTISM TUTOR ESTIMATED GFR Routine 04/22/2019 12:00 AM AUTISM TUTOR ANTI XA, UNFRACTIONATED Routine 04/22/2019 12:00 AM AUTISM TUTOR TROPONIN Routine 04/22/2019 12:00 AM AUTISM TUTOR COMPREHENSIVE METABOLIC Routine 04/22/2019 PANEL 12:00 AM AUTISM TUTOR HC COMPLETE BLD COUNT Routine 04/22/2019 W/AUTO DIFF 12:00 AM AUTISM TUTOR POC GLUCOSE Routine 04/21/2019 9:10 PM AUTISM TUTOR TROPONIN Timed 04/21/2019 4:00 PM AUTISM TUTOR ANTI XA, UNFRACTIONATED STAT 04/21/2019 4:00 PM AUTISM TUTOR PARTIAL THROMBOPLASTIN STAT 04/21/2019 TIME (PTT) 4:00 PM AUTISM TUTOR PROTHROMBIN TIME WITH INR STAT 04/21/2019 4:00 PM AUTISM TUTOR HEPATITIS B SURFACE Routine 04/21/2019 ANTIGEN 1:35 PM AUTISM TUTOR POC GLUCOSE Routine 04/21/2019 12:47 PM AUTISM TUTOR ECG 12-LEAD STAT 04/21/2019 12:32 PM AUTISM TUTOR TROPONIN Timed 04/21/2019 12:31 PM AUTISM TUTOR TTE COMPLETE, WO Routine 04/21/2019 CONTRAST, W DOPPLER 10:35 AM AUTISM TUTOR (43444) TROPONIN Timed 04/21/2019 9:12 AM AUTISM TUTOR POC GLUCOSE Routine 04/21/2019 8:09 AM AUTISM TUTOR HEMODIALYSIS Routine 04/21/2019 7:33 AM AUTISM TUTOR POC GLUCOSE Routine 04/21/2019 6:43 AM AUTISM TUTOR POC GLUCOSE Routine 04/21/2019 5:22 AM AUTISM TUTOR TROPONIN Timed 04/21/2019 5:20 AM AUTISM TUTOR POC GLUCOSE Routine 04/21/2019 4:50 AM AUTISM TUTOR ECG ED PRELIMINARY Routine 04/21/2019 INTERPRETATION 3:23 AM AUTISM TUTOR XR CHEST 1 VW PORTABLE STAT 04/21/2019 3:04 AM AUTISM TUTOR ESTIMATED GFR STAT 04/21/2019 2:28 AM AUTISM TUTOR B NATRIURETIC PEPTIDE STAT 04/21/2019 2:28 AM AUTISM TUTOR TROPONIN STAT 04/21/2019 2:28 AM AUTISM TUTOR COMPREHENSIVE METABOLIC STAT 04/21/2019 PANEL 2:28 AM AUTISM TUTOR HC COMPLETE BLD COUNT STAT 04/21/2019 W/AUTO DIFF 2:28 AM AUTISM TUTOR ECG 12-LEAD STAT 04/21/2019 12:[address] ANGIOGRAM ABDOMINAL Routine 04/20/2019 Nidhi courtney of vein AORTA AND BILATERAL 9:54 AM AUTISM TUTOR Peripheral vascul ar ILIOFEMORAL RUNOFF W WO disorder (HCC) CONTRAST End-stage renal disease (HCC) Dependence on hemodialysis (HCC) SINGLE ANTIGEN BEADS Routine 01/11/2019 7:10 AM AUTISM TUTOR NC APPLY LOWER LEG SPLINT Routine 01/05/2019 9:09 PM CDT NC RESUPERF WND BODY Routine 01/05/2019 <2.5CM 7:58 PM CDT HLA ALLOGENEIC CROSSMATCH Routine 11/04/2018 4:05 PM CDT HLA ALLOGENEIC CROSSMATCH Routine 11/03/2018 3:03 PM CDT SINGLE ANTIGEN BEADS Routine 10/14/2018 11:28 AM CDT HLA ALLOGENEIC CROSSMATCH Routine 10/03/2018 12:13 PM CDT SINGLE ANTIGEN BEADS Routine 09/07/2018 1:21 PM CDT HLA ALLOGENEIC CROSSMATCH Routine 09/04/2018 7:02 PM CDT HLA ALLOGENEIC CROSSMATCH Routine 08/28/2018 2:46 PM CDT SINGLE ANTIGEN BEADS Routine 08/10/2018 7:20 AM CDT HLA ALLOGENEIC CROSSMATCH Routine 08/01/2018 4:44 PM CDT after 07/28/2018 Results * POC glucose (05/04/2019 2:08 PM AUTISM TUTOR) Only the most recent of 49 results within the time period is included. Pathologist [facility] POC glucose 294 (H) 65 - 99 mg/dL RARITAN Comment: YAZDANISM Auto Body Painter Name: [facility] Device ID: [id number] Chartable: H Notified RN Specimen Performing Organization Address City/State/Zipcode Ph one Number [facility] DEPARTMENT OF [address] [place] [address] PATHOLOGY AND [place] [address] HOSPITAL * Smear review (05/04/2019 5:10 AM AUTISM TUTOR) [facility] Platelet slide Gary adequate [facility] Anisocytosis Moderate [facility] Polychromasia Moderate [facility] Ovalocytes Moderate [facility] Enlarged Moderate (A) [facility] Giant platelets Occasional [facility] Specimen Performing Organization Address City/[facility] Ph one Number [facility] DEPARTMENT OF [address] [place] [address] PATHOLOGY AND GENOMIC MEDICINE [address] * CBC with platelet and differential (05/04/2019 5:10 AM AUTISM TUTOR) Only the most recent of 8 results within the time period is included. [facility] WBC 7.48 4.50 - 11.00 k/uL [facility] RBC 3.07 (L) 4.40 - 6.00 m/uL [facility] HGB 9.0 (L) 14.0 - 18.0 g/dL [facility] HCT 29.1 (L) 41.0 - 51.0 % [facility] MCV 94.8 82.0 - 100.0 fL [facility] MCH 29.3 27.0 - 34.0 pg [facility] MCHC 30.9 (L) 31.0 - 37.0 g/dL [facility] RDW - SD 47.1 37.0 - 55.0 fL [facility] MPV 11.7 8.8 - 13.2 fL [facility] Platelet count 172 150 - 400 k/uL [facility] Nucleated RBC 0.00 /100 WBC [facility] Neutrophils 73.8 (H) 39.0 - 69.0 % [facility] Lymphocytes 11.8 (L) 25.0 - 45.0 % [facility] Monocytes 9.0 0.0 - 10.0 % [facility] Eosinophils 4.4 0.0 - 5.0 % [facility] Basophils 0.5 0.0 - 1.0 % [facility] Immature 0.5Comment: "Immature 0.0 - 1.0 % [facility]IT[facility] granulocytes granulocytes" (promyelocytes, [facility] myelocytes, metamyelocytes) HOSPITAL Specimen Blood Performing Organization Address City/State/Zipcode Ph one Number [facility] DEPARTMENT OF [address] [place] [address] [address] [facility] [address] * Cv invasive peripheral vascular procedure (05/03/2019 5:35 PM AUTISM TUTOR) Specimen Narrative Performed At [employer] OPERATOR: None. PREOPERATIVE DIAGNOSES: 1. Occlusion and/or stenosis of arter ies of the lower extremities with resting pain. 2. Critical limb ischemia. POSTOPERATIVE DIAGNOSES: 1. Occlusion and/or stenosis of arter ies of the lower extremities with resting pain. 2. Critical limb ischemia. ANESTHESIA: Conscious sedation with Versed and fent anyl. TITLE OF OPERATION: Bilateral selective femoral angiograms with runoff studies via the left femoral artery. ESTIMATED BLOOD LOSS: 20 mL COMPLICATIONS: None. OPERATIVE COURSE: After informed consent was obtained fro m the patient and with appropriate time-out procedure called, the patient was placed on the cardiac catheterization table. Both groins were cleaned and p repared in the usual fashion, but the left groin had been predetermined for access . The appropriate anatomic landmarks were identified under fluoroscopy. He received Versed and fentanyl for conscious sedation and was continuously monitored by myself and the circulating nurse including end-tidal CO2, oxygenat ion, blood pressure, heart rate, and respiration. He tolerated the anesthe tic portion nicely. The left femoral area was then infused with 1% Xylocaine with out epinephrine and the artery entered without difficulty using a standard 18- gauge [facility] needle. A short 5-Mexican arterial sheath was utilized for access . Next, using a 4-Mexican Contra catheter and a 0.035 Darragh exchange wire, the r ight iliac artery was selectively entered and the wire advanced to the mid superf icial femoral artery. The Contra catheter was then removed without doing an abdominal aortogram (please see CT angiogram previously described). A mu ltipurpose catheter was then advanced over the wire to the distal aspect of the ri ght common femoral artery. The initial angiograms were taken in the left anter ior oblique angulation with a selective imaging done from the common femoral to the foot. The first 3 images were done in the anterior oblique position while the final images were done in the AP projection. Following this, the jorge ter was withdrawn and similar images were taken of the left femoral system with r unoff to the foot. We did not utilize a specific catheter other than the 5-Fren ch sheath for this. All studies were done under subtraction imaging. Once completed, the angiograms were carefully reviewed. On the right side, there is mild calcific nonocclusive plaquing in the mid and distal common femoral arter y. The profunda femoris has a focal 60% stenosis in the proximal aspect of the vessel. The entire right superficial femoral artery is calcified without sig nificant focal stenosis. In the popliteal artery above the knee space, there is a focal 40% to 50% stenosis, which is not flow limiting. Below the knee, there is total occlusion of the anterior tibial, peroneal and posterior tibial arteries, all of the posterior tibial occludes well distal to the take off from the common peroneal trunk. There are weak collaterals to the dista l anterior tibial, but virtually no runoff into the foot. On the left keanu e, the common femoral artery is calcified, but without disease. There is an 80% focal stenosis in the profunda femoris artery. The entire superficial femora l artery is also diffusely calcified, but without focal stenosis. There is, how ever, a focal 60% stenosis in the popliteal artery above the joint space. Below the knee, all 3 vessels are also occluded including the anterior tibial, peroneal and posterior tibial artery. There are weak collaterals from the ant erior tibial, which fill the peroneal artery, but not the posterior tibial. There appeared to be minimal collateral runoff into the foot on the left side. As a result, the procedure was terminated. The patient was taken off the catheterization table and the sheath will be removed. He will be transport ed back to the patient's room once bedrest is completed. In my opinion, the patient is not a can didate for endovascular or surgical revascularization. Due to his ongoing pain, he will likely require [id number] amputation as there is s ufficient flow to facilitate wound healing. I have already communicated this to the patient's attending boilermaker industrial boilers, Dr. Angel Lugo. Performing Organization Address City/[facility] one Number [facility] [address] [place] [address] * Estimated GFR (05/03/2019 3:30 PM AUTISM TUTOR) Only the most recent of 10 results within the time period is included. Estimated GFR 10 (A) mL/min/1.73 m2 RARITAN Comment: YAZDANISM [facility] Interpretation G1 >=90 Normal or high G2 60-89 Mildly decreased G3a 45-59 Mildly to moderately decreased G3b 30-44 Moderately to severely decreased G4 15-29 Severely decreased G5 <15 Kidney failure The eGFR was calculated using the Chronic Kidney Disease Epidemiology Collaboration (CKD-EPI) equation. Interpretation is based on recommendations of the National Kidney Foundation-Kidney Disease Outcomes Quality Initiative (NKF-KDOQI) published in 2014. Specimen Blood Performing Organization Address [facility] one Number [facility] DEPARTMENT OF [address] [place] [address] PATHOLOGY AND GENOMIC MEDICINE [address] * POC panel (05/03/2019 3:30 PM AUTISM TUTOR) Pathologist [facility] POC sodium 138 135 - 148 mmol/L [facility] POC potassium 4.1 3.5 - 5.0 mmol/L [facility] POC chloride 96 (L) 99 - 109 mmol/L [facility] POC CO2 31 24 - 31 mmol/L [facility] POC glucose 182 (H) 65 - 99 mg/dL [facility] POC BUN 21 8 - 24 mg/dL [facility] POC creatinine 6.5 (H) 0.7 - 1.2 mg/dl [facility] POC hematocrit 31 (L) 41 - 51 % [facility] POC anion gap 16 8 - 20 mmol/L RARITAN Comment: YAZDANISM Auto Body Painter Name: [facility] Sandi Robin Device ID: [id number] Specimen Performing Organization Address [facility] one Number [facility] DEPARTMENT OF [address] [place] [address] PATHOLOGY AND GENOMIC MEDICINE [address] * Basic metabolic panel (05/03/2019 7:25 AM AUTISM TUTOR) Only the most recent of 6 results within the time period is included. Sodium 138 135 - 148 mEq/L [facility] Potassium 5.1 (H) 3.5 - 5.0 mEq/L [facility] Chloride 96 (L) 98 - 112 mEq/L [facility] CO2 23 (L) 24 - 31 mEq/L [facility] Anion gap 19@ANIO (H) 7 - 15 mEq/L [facility] BUN 53 (H) 8 - 23 mg/dL [facility] Creatinine 11.08 (H) 0.70 - 1.20 mg/dL [facility] Glucose 228 (H) 65 - 99 mg/dL [facility] Calcium 8.4 (L) 8.8 - 10.2 mg/dL [facility] Specimen Plasma specimen Performing Organization Address City/State/[facility] Ph one Number [facility] DEPARTMENT OF [address] [place] [address] PATHOLOGY AND GENOMIC MEDICINE [address] * Us carotid duplex (05/01/2019 10:15 AM AUTISM TUTOR) Specimen Narrative Performed At [facility] Vascular U ltrasound Laboratory Carotid A rtery Duplex Report [id number] [facility], [facility] [address], [place] [address] For coding quality analyst purposes, the cat egorization of the degree of the stenosis of this exam is based on criteria descr ibed in the IAC carotid stenosis grading white paper( www.intersocietal.org/Vasc ular) and Azam, E.Jayne., Bautista, C.B., et al. Carotid artery stenosis: christensen-scale and Doppler US diagnosis--Society of Radiologists in Ultrasound Consensus Conference. Radiol ogy. 2003 Jan; 229(2):340-6. Pat.Name: DUONG HERNANDEZ Pat.ID: [id number] .Date: 05/01/2019 Refer.MD: ANGEL LUGO MD Exam Time: 9:25:00 AM Study Type:Carotid Height: 72in Weight: 186lb BSA: 2.07 m2 Age: 8 1955,63Y Sex: MALE Sonogrphr: Charleen Pathak RVT Pat. Stat.:Inpatient Room: [address] Tape Vol: RF, CPT - 4: 08203 Echo Event ID:[id number] Order ID: [id number] Reason for Study:Evaluate for possible carotid artery disease. History of ESRD on HD, DM, PAD, HTN. Procedures: Colorflow, Grayscale/2D, Po wer Doppler Imaging Race: B SUMMARY: PHYSICAL ASSESSMENT Blood Pressure Right AVF Left 125/65 CAROTID ARTERY SCAN RIGHT: There is smooth intimal lining o f the common carotid artery. There is calcified plaque noted in the bulb extending into the external carotid and internal carotid a rtery. Colorflow is normal. LEFT: There is smooth intimal lining of the common carotid artery. There is hard and calcified plaque note d in the bulb extending into the internal carotid artery and externa l carotid artery. Colorflow is normal. PRELIMINARY FINDINGS 1. <50% stenosis of the bulb and planner intern al carotis artery, bilaterally. 2. <50% stenosis of the external caroti d artery, bilaterally. PHYSICIAN INTERPRETATION Bilateral carotid duplex examination de monstrated atherosclerotic plaques in the bulbs. Less than 50% stenosis in the bulb and internal carotid artery, bilaterally. Both vertebral arteries are antegrade. Right UE AVF. FINDINGS: Carotid Findings: Right Left Verteb.Flw Antegrade Antegrade Subclavian Disturbed Biphasic MEASUREMENTS: DOPPLER Right CCA Dist CCA Dist PSV 65.9 cm/s CCA Dist EDV 11.5 cm/s Right CCA Mid CCA Mid PSV 84.5 cm/s CCA Mid EDV 15.6 cm/s Right CCA Prox CCA Prox PSV 134 cm/s CCA Prox EDV 21.5 cm/s Right ECA Prox ECA Prox PSV 91.8 cm/s ECA Prox EDV 0 cm/s Right ICA Dist ICA Dist PSV 49 cm/s ICA Dist EDV 18 cm/s Right ICA Mid ICA Mid PSV 99.5 cm/s ICA Mid EDV 30.9 cm/s Right ICA Prox ICA Prox PSV 89.2 cm/s ICA Prox EDV 28.3 cm/s Right Vertebral Vertebral PSV 49 cm/s Vertebral EDV 12.8 cm/s Left CCA Dist CCA Dist PSV 78.5 cm/s CCA Dist EDV 15.5 cm/s Left CCA Mid CCA Mid PSV 94.3 cm/s CCA Mid EDV 21.5 cm/s Left CCA Prox CCA Prox PSV 102 cm/s CCA Prox EDV 15.6 cm/s Left ECA Prox ECA Prox PSV 70.7 cm/s ECA Prox EDV 0 cm/s Left ICA Dist ICA Dist PSV 82 cm/s ICA Dist EDV 22 cm/s Left ICA Mid ICA Mid PSV 92 cm/s ICA Mid EDV 34.2 cm/s Left ICA Prox ICA Prox PSV 94.5 cm/s ICA Prox EDV 22.1 cm/s Left Vertebral Vertebral PSV 46.5 cm/s Vertebral EDV 14.1 cm/s Right ICA/CCA Ratio ICA/CCA PSV 1.06 Left ICA/CCA Ratio ICA/CCA PSV 1 Signed 05/01/2019 04:30 PM J Carlos Riddle MD, RPVI Procedure Note Interface, Radiology Results In - 05/01/2019 4:30 PM [facility] Vascular Ultrasound Laboratory Carotid Artery Duplex Report [id number] [place] [address] For coding quality analyst purposes, the categorization of the degree of the stenosis of this exam is based on criteria described in the IAC carotid stenosis grading white paper( www.intersocietal.org/Vascular) and Kimberly Nascimento., Angelia Baum., et al. Carotid artery stenosis: christensen-scale and Doppler US diagnosis--Society of Radiologists in Ultrasound Consensus Conference. Radiology. 2003 Nov; 229(2):340-6. Pat.Name: DUONG HERNANDEZ Pat.ID: [id number] .Date: 05/01/2019 Refer.MD: ANGEL LUGO MD Exam Time: 9:25:00 AM Study Type:Carotid Height: 72in Weight: 186lb BSA: 2.07 m2 Age: 8 1955,63Y Sex: MALE Sonogrphr: Charleen Pathak RVT Pat. Stat.:Inpatient Room: [address] Tape Vol: RF, CPT - 4: 69313 Echo Event ID:[id number] Order ID: [id number] Reason for Study:Evaluate for possible carotid artery disease. History of ESRD on HD, DM, PAD, HTN. Procedures: Colorflow, Grayscale/2D, Power Doppler Imaging Race: B SUMMARY: PHYSICAL ASSESSMENT Blood Pressure Right AVF Left 125/65 CAROTID ARTERY SCAN RIGHT: There is smooth intimal lining of the common carotid artery. There is calcified plaque noted in the bulb extending into the external carotid and internal carotid artery. Colorflow is normal. LEFT: There is smooth intimal lining of the common carotid artery. There is hard and calcified plaque noted in the bulb extending into the internal carotid artery and external carotid artery. Colorflow is normal. PRELIMINARY FINDINGS 1. <50% stenosis of the bulb and interna l carotis artery, bilaterally. 2. <50% stenosis of the external carotid artery, bilaterally. PHYSICIAN INTERPRETATION Bilateral carotid duplex examination demonstrated atherosclerotic plaques in the bulbs. Less than 50% stenosis in the bulb and internal carotid artery, bilaterally. Both vertebral arteries are antegrade. Right UE AVF. FINDINGS: Carotid Findings: Right Left Verteb.Flw Antegrade Antegrade Subclavian Disturbed Biphasic MEASUREMENTS: DOPPLER Right CCA Dist CCA Dist PSV 65.9 cm/s CCA Dist EDV 11.5 cm/s Right CCA Mid CCA Mid PSV 84.5 cm/s CCA Mid EDV 15.6 cm/s Right CCA Prox CCA Prox PSV 134 cm/s CCA Prox EDV 21.5 cm/s Right ECA Prox ECA Prox PSV 91.8 cm/s ECA Prox EDV 0 cm/s Right ICA Dist ICA Dist PSV 49 cm/s ICA Dist EDV 18 cm/s Right ICA Mid ICA Mid PSV 99.5 cm/s ICA Mid EDV 30.9 cm/s Right ICA Prox ICA Prox PSV 89.2 cm/s ICA Prox EDV 28.3 cm/s Right Vertebral Vertebral PSV 49 cm/s Vertebral EDV 12.8 cm/s Left CCA Dist CCA Dist PSV 78.5 cm/s CCA Dist EDV 15.5 cm/s Left CCA Mid CCA Mid PSV 94.3 cm/s CCA Mid EDV 21.5 cm/s Left CCA Prox CCA Prox PSV 102 cm/s CCA Prox EDV 15.6 cm/s Left ECA Prox ECA Prox PSV 70.7 cm/s ECA Prox EDV 0 cm/s Left ICA Dist ICA Dist PSV 82 cm/s ICA Dist EDV 22 cm/s Left ICA Mid ICA Mid PSV 92 cm/s ICA Mid EDV 34.2 cm/s Left ICA Prox ICA Prox PSV 94.5 cm/s ICA Prox EDV 22.1 cm/s Left Vertebral Vertebral PSV 46.5 cm/s Vertebral EDV 14.1 cm/s Right ICA/CCA Ratio ICA/CCA PSV 1.06 Left ICA/CCA Ratio ICA/CCA PSV 1 Signed 05/01/2019 04:30 PM J Carlos Riddle MD, RPVI Performing Organization Address City/State/Zipcode Ph one Number [facility] [address] [place] [address] * Phosphorus level (05/01/2019 4:00 AM AUTISM TUTOR) Phosphorus 3.8 2.4 - 4.5 mg/dL [facility] Specimen Plasma specimen Performing Organization Address City/State/[facility] Ph one Number [facility] DEPARTMENT OF [address] [place] [address] PATHOLOGY AND GENOMIC MEDICINE [address] * Lactic acid level, SEPSIS - Now and repeat 2x every 3 hours (04/30/2019 5:00 AM AUTISM TUTOR) Only the most recent of 3 results within the time period is included. Lactic acid 2.1 0.5 - 2.2 mmol/L [facility] Specimen Plasma specimen Performing Organization Address City/[facility] Ph one Number [facility] [place] [address] PATHOLOGY AND GENOMIC MEDICINE [address] * Uric acid level (04/30/2019 5:00 AM AUTISM TUTOR) Uric acid 4.5 3.4 - 7.0 mg/dL [facility] Specimen Plasma specimen Performing Organization Address City/[facility] Ph one Number [facility] DEPARTMENT OF [address] [place] [address] PATHOLOGY AND GENOMIC MEDICINE [address] * Hemoglobin A1c (04/30/2019 5:00 AM AUTISM TUTOR) Hemoglobin A1C 8.4 (H) 4.0 - 5.6 % RARITAN Comment: YAZDANISM HbA1c cutoffs for diagnosing HOSPITAL diabetes: 4.0% - 5.6% = normal 5.7% - 6.4% = increased risk for diabetes (prediabetes)9 >=6.5% = diabetes9 Goals for glycemic control (ADA 2016) < 7.0% Target for non adults with diabetes. More or less stringent targets may be appropriate for individual patients. <7.5% Target for Children and adolescents with type 1 diabetes. Specimen Blood Performing Organization Address City/[facility] Ph one Number [facility] DEPARTMENT OF [address] [place] [address] PATHOLOGY AND GENOMIC MEDICINE [address] * Lipid panel (04/30/2019 5:00 AM AUTISM TUTOR) Cholesterol 154 <200 mg/dL [facility] Triglycerides 130 <150 mg/dL [facility] HDL cholesterol 40 >40 mg/dL [facility] LDL cholesterol 91Comment: Result obtained by <100 mg/dL RARITAN direct LDL measurement [facility] Lipid panel SeeBelow RARITAN interpretation Comment: YAZDANISM Total Cholesterol (mg/dL) [facility] <200 Desirable 200-239 Borderline-high >=240 High Triglycerides (mg/dL) <150 Normal 150-199 Borderline-high 200-499 High >=500 Very high HDL Cholesterol (mg/dL) <40 Low (male) <40 Low (female) LDL Cholesterol (mg/dL) <100 Optimal 100-129 Near or above optimal 130-159 Borderline-high 160-189 High >=190 Very high Risk Catergories that modify LDL goals. Risk Catergories LDL goal (mg/dL) CHD and CHD risk equivalent <100 (10-year risk >20%) Multiple (2+) risk factors <130 (10-year risk =<20%) 0-1 risk factors <160 (<10-year risk) Defining levels of lipids in metabolic syndrome Triglycerides >=150 mg/dL HDL Cholesterol Men <40 mg/dL Women <40 mg/dL Non-HDL cholesterol is a second target for therapy in persons with high triglycerides (>=200 mg/dL) Specimen Plasma specimen Performing Organization Address City/State/[facility] Ph one Number [facility] DEPARTMENT OF [address] [place] [address] PATHOLOGY AND GENOMIC MEDICINE [address] * XR Foot 3 Vw Bilateral (04/30/2019 2:28 AM AUTISM TUTOR) Specimen Narrative Performed At EXAMINATION: XR FOOT 3 VW BILATERAL [facility] CLINICAL HISTORY: 63 years Male Os teomyelitis suspected foot swelling diabetic COMPARISON: None available at this ti mo. IMPRESSION: Patient has undergone partial indentati on of the left first phalanx. No evidence of osteomyelitis in either foot. No evidence of fracture or dislocation bilaterally The bones are demineralized bilaterally Joint space narrowing in the first thro ugh fifth tarsometatarsal joints bilaterally No suspicious focal blastic or lytic le sions No radiopaque foreign bodies are presen t. [id number] Procedure Note Hm Interface, Radiology Results Incoming - 04/30/2019 7:29 AM AUTISM TUTOR EXAMINATION: XR FOOT 3 VW BILATERAL CLINICAL HISTORY: 63 years Male Osteomyelitis suspected foot swelling diabetic COMPARISON: None available at this time. IMPRESSION: Patient has undergone partial indentation of the left first phalanx. No evidence of osteomyelitis in either foot. No evidence of fracture or dislocation bilaterally The bones are demineralized bilaterally Joint space narrowing in the first through fifth tarsometatarsal joints bilaterally No suspicious focal blastic or lytic lesions No radiopaque foreign bodies are present. [id number] Performing Organization Address City/State/Zipcode Ph one Number [facility] [address] [place] [address] * duplex arterial lower extremity (04/29/2019 9:30 PM AUTISM TUTOR) Specimen Narrative Performed At [facility] Vascular U ltrasound Laboratory Lower Extremity Arterial Duplex Report [id number] [facility], [place] [address], [place] [address] Pat.Name: DUONG HERNANDEZ Pat.ID: [id number] .Date: 04/29/2019 Refer.MD: TREMAYNE CALLE MD Exam Time: 7:34:00 PM Study Type:LE Arterial Height: 72in BSA: 2.01 m2 Age: 8 1955,63Y Sex: MALE Sonogrphr: CHELSEA Castellon Pat . Stat.:Inpatient Room: ED34 Tape Vol: VM, CPT - 4: 26092 Echo Event ID:[id number] Order ID: [id number] Reason for Study:Leg pain and discolora tion bilateraly. History of DM2, lefr toe amputation, PVD, ESRD, an d bilateral balloon angioplasty. Procedures: Colorflow, Grayscale/2D, Pu lsed wave Doppler Race: B SUMMARY: DUPLEX SCAN OBSERVATIONS: RIGHT: There is hard and calcified plaq ue noted in the common femoral, profunda, femoral, andpopliteal arterie s. There is calcified arterial hess in the posterior tibial artery, p eroneal artery and anterior tibial artery. There is elevated veloci ties with disturbed colorflow in the proximal posterior tibial, mid p osterior tibial, distal posterior tibial. Diminished waveform i n the proximal peroneal artery. Unable to obtain Doppler waveforms in t he mid and distal peroneal arteries. Absent waveform in the mid an terior tibial artery with collaterals noted. LEFT: There is hard and calcified juarez que noted in the common femoral, profunda, femoral, andpopliteal arterie s. There is calcified arterial hess in the posterior tibial artery, p eroneal artery and anterior tibial artery. There is elevated veloci ties with disturbed colorflow in the profunda artery, proximal scrap dealer ior artery, mid anterior tibial, and distal anterior tibial jaxson ry. Absent Doppler waveform in the mid posterior tibial artery with co llaterals noted. Diminished waveform in the distal posterior tibial artery. Absent peroneal signals. PRELIMINARY FINDINGS: 1. 50-75% stenosis of the right proxima l posterior artery with the highest ratio of 2.9 and left proximal posterior tibial artery ratio 3.1. 2. 50-75% stenosis in the left profunda artery with a ratio of 2.4. 3. 50-75% stenosis in the left anteri or tibial artery with the highest ratio of 2.42 4. Total occlusion of left peroneal art abigail. 5. Absent Doppler wave form in the le ft mid posterior tibial artery with collaterals noted. 6. Hard calcified plaque in the visuali zed arteries, bilaterally. Preliminary results reported to Srinivas pineda at 1125 PM on 04/29/19. PHYSICIAN INTERPRETATION: Arterial duplex examination of bilate [facility] lower extremities demonstrates bilateral multi-level jaxson rial occlusive disease. FINDINGS: MEASUREMENTS: DOPPLER Right DIRECTOR OF FINANCIAL AID prox DIRECTOR OF FINANCIAL AID prox PSV 113 cm/s Right SFA Mid SFA Mid PSV 89.2 cm/s SFA Right SFA Mid D 60 deg Left SFA Mid Do 60 deg Right SFA Prox 60 deg Left SFA Prox D 60 deg Left SFA Dist D 60 deg Right SFA Prox SFA Prox PSV 87.6 cm/s Right Pop Dist Pop Dist PSV 75.4 cm/s Popliteal Right Popliteal 60 deg Left Popliteal 60 deg Right Popliteal 60 deg Right Pop Prox Pop Prox PSV 67.6 cm/s Peroneal Right Peroneal 60 deg Left Peroneal M 60 deg Right Peroneal 60 deg Left Peroneal P 60 deg Left Peroneal D 60 deg Right Peroneal Dist Peroneal Dist P 92.6 cm/s Right Peroneal Prox Peroneal Prox P 19 cm/s Right POWER SEWING MACHINE OPERATOR Mid POWER SEWING MACHINE OPERATOR Mid PSV 82.8 cm/s Tibial Post Right Tibial Po 60 deg Right Tibial Po 60 deg Right POWER SEWING MACHINE OPERATOR Prox POWER SEWING MACHINE OPERATOR Prox PSV 166 cm/s POWER SEWING MACHINE OPERATOR Prox PSV 80 cm/s Left DIRECTOR OF FINANCIAL AID Dist DIRECTOR OF FINANCIAL AID Dist PSV 58.7 cm/s Left SFA Dist SFA Dist PSV 65 cm/s Left SFA Mid SFA Mid PSV 72.8 cm/s Left SFA Prox SFA Prox PSV 68.9 cm/s Left Pop Prox Pop Prox PSV 66.3 cm/s Pop Prox PSV 66 cm/s Peroneal Dist Peroneal Dist P 0 cm/s Left Peroneal Mid Peroneal Mid PS 0 cm/s Left Peroneal Prox Peroneal Prox P 0 cm/s Profunda Left Profunda D 60 deg Left VERONICA Dist VERONICA Dist PSV 133 cm/s Tibial Art Left Tibial Art 60 deg Left Tibial Art 60 deg Left Tibial Art 60 deg VERONICA Mid VERONICA Mid PSV 84 cm/s Left VERONICA Prox VERONICA Prox PSV 142 cm/s VERONICA Prox PSV 142 cm/s Right DIRECTOR OF FINANCIAL AID Dist DIRECTOR OF FINANCIAL AID Dist PSV 114 cm/s Right Profunda Profunda PSV 104 cm/s Right SFA Dist SFA Dist PSV 97 cm/s Right POWER SEWING MACHINE OPERATOR Prox 1 POWER SEWING MACHINE OPERATOR Prox 1 PSV 151 cm/s Right POWER SEWING MACHINE OPERATOR Prox 2 POWER SEWING MACHINE OPERATOR Prox 2 PSV 166 cm/s Right POWER SEWING MACHINE OPERATOR Mid 2 POWER SEWING MACHINE OPERATOR Mid 2 PSV 79 cm/s Right POWER SEWING MACHINE OPERATOR Distal POWER SEWING MACHINE OPERATOR Distal PSV 233 cm/s Right VERONICA Prox VERONICA Prox PSV 79 cm/s Right VERONICA Mid VERONICA Mid PSV 103 cm/s Right VERONICA Dist 1 VERONICA Dist 1 PSV 77 cm/s Left Profunda Profunda PSV 122 cm/s Left Profunda 1 Profunda 1 PSV 142 cm/s Left Pop Dist Pop Dist PSV 69 cm/s Left Pop Dist 1 Pop Dist 1 PSV 61 cm/s Left POWER SEWING MACHINE OPERATOR Prox POWER SEWING MACHINE OPERATOR Prox PSV 189 cm/s Left POWER SEWING MACHINE OPERATOR Mid POWER SEWING MACHINE OPERATOR Mid PSV 34 cm/s Left POWER SEWING MACHINE OPERATOR Distal POWER SEWING MACHINE OPERATOR Distal PSV 15 cm/s Left VERONICA Mid 2 VERONICA Mid 2 PSV 82 cm/s Left VERONICA Mid 1 VERONICA Mid 1 PSV 220 cm/s Right VERONICA Distal VERONICA Distal PSV 43 cm/s Left VERONICA Distal VERONICA Distal PSV 95 cm/s Left VERONICA Dist 1 VERONICA Dist 1 PSV 109 cm/s Left VERONICA Dist 2 VERONICA Dist 2 PSV 269 cm/s Signed 04/29/2019 11:36 PM J Carlos Riddle MD, RPVI Procedure Note Interface, Radiology Results In - 04/29/2019 11:37 PM [facility] Vascular Ultrasound Laboratory Lower Extremity Arterial Duplex Report [id number] [place] [address] Pat.Name: DUONG HERNANDEZ Pat.ID: [id number] .Date: 04/29/2019 Refer.MD: TREMAYNE CALLE MD Exam Time: 7:34:00 PM Study Type:LE Arterial Height: 72in BSA: 2.01 m2 Age: 8 1955,63Y Sex: MALE Sonogrphr: CHELSEA Castellon Pat. Stat.:Inpatient Room: ED34 Tape Vol: VM, CPT - 4: 77618 Echo Event ID:[id number] Order ID: [id number] Reason for Study:Leg pain and discoloration bilateraly. History of DM2, lefr toe amputation, PVD, ESRD, and bilateral balloon angioplasty. Procedures: Colorflow, Grayscale/2D, Pulsed wave Doppler Race: B SUMMARY: DUPLEX SCAN OBSERVATIONS: RIGHT: There is hard and calcified plaque noted in the common femoral, profunda, femoral, andpopliteal arteries. There is calcified arterial hess in the posterior tibial artery, peroneal artery and anterior tibial artery. There is elevated velocities with disturbed colorflow in the proximal posterior tibial, mid posterior tibial, distal posterior tibial. Diminished waveform in the proximal peroneal artery. Unable to obtain Doppler waveforms in the mid and distal peroneal arteries. Absent waveform in the mid anterior tibial artery with collaterals noted. LEFT: There is hard and calcified plaque noted in the common femoral, profunda, femoral, andpopliteal arteries. There is calcified arterial hess in the posterior tibial artery, peroneal artery and anterior tibial artery. There is elevated velocities with disturbed colorflow in the profunda artery, proximal posterior artery, mid anterior tibial, and distal anterior tibial artery. Absent Doppler waveform in the mid posterior tibial artery with collaterals noted. Diminished waveform in the distal posterior tibial artery. Absent peroneal signals. PRELIMINARY FINDINGS: 1. 50-75% stenosis of the right proximal posterior artery with the highest ratio of 2.9 and left proximal posterior tibial artery ratio 3.1. 2. 50-75% stenosis in the left profunda artery with a ratio of 2.4. 3. 50-75% stenosis in the left anterior tibial artery with the highest ratio of 2.42 4. Total occlusion of left peroneal jaxson ry. 5. Absent Doppler wave form in the left mid posterior tibial artery with collaterals noted. 6. Hard calcified plaque in the visualiz ed arteries, bilaterally. Preliminary results reported to Tamara at 1125 PM on 04/29/19. PHYSICIAN INTERPRETATION: Arterial duplex examination of bilateral lower extremities demonstrates bilateral multi-level arterial occlusive disease. FINDINGS: MEASUREMENTS: DOPPLER Right DIRECTOR OF FINANCIAL AID prox DIRECTOR OF FINANCIAL AID prox PSV 113 cm/s Right SFA Mid SFA Mid PSV 89.2 cm/s SFA Right SFA Mid D 60 deg Left SFA Mid Do 60 deg Right SFA Prox 60 deg Left SFA Prox D 60 deg Left SFA Dist D 60 deg Right SFA Prox SFA Prox PSV 87.6 cm/s Right Pop Dist Pop Dist PSV 75.4 cm/s Popliteal Right Popliteal 60 deg Left Popliteal 60 deg Right Popliteal 60 deg Right Pop Prox Pop Prox PSV 67.6 cm/s Peroneal Right Peroneal 60 deg Left Peroneal M 60 deg Right Peroneal 60 deg Left Peroneal P 60 deg Left Peroneal D 60 deg Right Peroneal Dist Peroneal Dist P 92.6 cm/s Right Peroneal Prox Peroneal Prox P 19 cm/s Right POWER SEWING MACHINE OPERATOR Mid POWER SEWING MACHINE OPERATOR Mid PSV 82.8 cm/s Tibial Post Right Tibial Po 60 deg Right Tibial Po 60 deg Right POWER SEWING MACHINE OPERATOR Prox POWER SEWING MACHINE OPERATOR Prox PSV 166 cm/s POWER SEWING MACHINE OPERATOR Prox PSV 80 cm/s Left DIRECTOR OF FINANCIAL AID Dist DIRECTOR OF FINANCIAL AID Dist PSV 58.7 cm/s Left SFA Dist SFA Dist PSV 65 cm/s Left SFA Mid SFA Mid PSV 72.8 cm/s Left SFA Prox SFA Prox PSV 68.9 cm/s Left Pop Prox Pop Prox PSV 66.3 cm/s Pop Prox PSV 66 cm/s Peroneal Dist Peroneal Dist P 0 cm/s Left Peroneal Mid Peroneal Mid PS 0 cm/s Left Peroneal Prox Peroneal Prox P 0 cm/s Profunda Left Profunda D 60 deg Left VERONICA Dist VERONICA Dist PSV 133 cm/s Tibial Art Left Tibial Art 60 deg Left Tibial Art 60 deg Left Tibial Art 60 deg VERONICA Mid VERONICA Mid PSV 84 cm/s Left VERONICA Prox VERONICA Prox PSV 142 cm/s VERONICA Prox PSV 142 cm/s Right DIRECTOR OF FINANCIAL AID Dist DIRECTOR OF FINANCIAL AID Dist PSV 114 cm/s Right Profunda Profunda PSV 104 cm/s Right SFA Dist SFA Dist PSV 97 cm/s Right POWER SEWING MACHINE OPERATOR Prox 1 POWER SEWING MACHINE OPERATOR Prox 1 PSV 151 cm/s Right POWER SEWING MACHINE OPERATOR Prox 2 POWER SEWING MACHINE OPERATOR Prox 2 PSV 166 cm/s Right POWER SEWING MACHINE OPERATOR Mid 2 POWER SEWING MACHINE OPERATOR Mid 2 PSV 79 cm/s Right POWER SEWING MACHINE OPERATOR Distal POWER SEWING MACHINE OPERATOR Distal PSV 233 cm/s Right VERONICA Prox VERONICA Prox PSV 79 cm/s Right VERONICA Mid VERONICA Mid PSV 103 cm/s Right VERONICA Dist 1 VERONICA Dist 1 PSV 77 cm/s Left Profunda Profunda PSV 122 cm/s Left Profunda 1 Profunda 1 PSV 142 cm/s Left Pop Dist Pop Dist PSV 69 cm/s Left Pop Dist 1 Pop Dist 1 PSV 61 cm/s Left POWER SEWING MACHINE OPERATOR Prox POWER SEWING MACHINE OPERATOR Prox PSV 189 cm/s Left POWER SEWING MACHINE OPERATOR Mid POWER SEWING MACHINE OPERATOR Mid PSV 34 cm/s Left POWER SEWING MACHINE OPERATOR Distal POWER SEWING MACHINE OPERATOR Distal PSV 15 cm/s Left VERONICA Mid 2 VERONICA Mid 2 PSV 82 cm/s Left VERONICA Mid 1 VERONICA Mid 1 PSV 220 cm/s Right VERONICA Distal VERONICA Distal PSV 43 cm/s Left VERONICA Distal VERONICA Distal PSV 95 cm/s Left VERONICA Dist 1 VERONICA Dist 1 PSV 109 cm/s Left VERONICA Dist 2 VERONICA Dist 2 PSV 269 cm/s Signed 04/29/2019 11:36 PM J Carlos Riddle MD, RPVI Performing Organization Address City/State/[facility] Ph one Number [facility] [address] [place] [address] * Us ankle brachial index (04/29/2019 8:00 PM AUTISM TUTOR) Specimen Narrative Performed At [facility] Vascular D iagnostic Laboratory Physiologi c Arterial Leg Report [address] [place] [address] Pat.Name: DUONG HERNANDEZ Pat.ID: [id number] St.Date: 04/29/2019 Refer.MD: TREMAYNE CALLE MD Exam Time: 7:13:00 PM Study Type:Physiologic Leg H eight: 72in Weight: 175lb BSA: 2.01 m2 Age: 8 1955,63Y Sex: MALE Sonogrphr: CHELSEA Castellon, Cindy bAdalla RVT Pat. Stat.:Inpatient Room: ED34 Tape Vol: VM, CPT - 4: 67190 Echo Event ID:[id number] Order ID: [id number] Reason for Study:Leg pain and discolora tion bilateraly. History of DM2, lefr toe amputation, PVD, ESRD, an d bilateral balloon angioplasty. Procedures: Ankle/brachial pressures, D igit pressures, Non-imaging continuous wave Doppler, PPG waveform t racing Race: B SUMMARY: DOPPLER SIGNALS DOPPLER SIGNALS ARTERY RIGHT LEFT Posterior Tibial Abnormal Abnormal Dorsalis Pedis Abnormal Abnormal SEGMENTAL PRESSURE (mmHg): RIGHT LEFT Brachial 163 * Ankle DP Non-compressible 129 Ankle PT 120 118 Great Toe 36 Amputation ANKLE/BRACHIAL INDEX: RIGHT LEFT Dorsalis Pedis Non-Compressible 0.7 9 Posterior Tibial 0.74 0.72 TOE/BRACHIAL INDEX: RIGHT LEFT 0.22 unable to obtain PRELIMINARY FINDINGS: 1. Ankle/brachial indices fall into t he moderate category in the left and right posterior tibial arteries and the left dorsalis pedis artery. 2. Ankle/brachial index in the right do rsalis pedis was not able to be obtained due to non-compressible artery . 3. Toe/brachial index in the right fall s into the splebfra-xz-mkelki category. 4. 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 5. See same day arterial duplex. PHYSICIAN INTERPRETATION: 1. Ankle/brachial indices fall into t he moderate category in the left and right posterior tibial arteries and the left dorsalis pedis artery. 2. Ankle/brachial index in the right do rsalis pedis was not able to be obtained due to non-compressible artery . 3. Toe/brachial index in the right fall s into the spjhdlgb-oq-nnxitl category. 4. 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 FINDINGS: Signed 04/29/2019 11:20 PM J Carlos Riddle MD, RPVI Procedure Note Interface, Radiology Results In - 04/29/2019 11:20 PM AUTISM TUTOR Vascular Diagnostic Laboratory Physiologic Arterial Leg Report [id number] [address] Pat.Name: DUONG HERNANDEZ Pat.ID: [id number] .Date: 04/29/2019 Refer.MD: TREMAYNE CALLE MD Exam Time: 7:13:00 PM Study Type:Physiologic Leg Height: 72in Weight: 175lb BSA: 2.01 m2 Age: 8 1955,63Y Sex: MALE Sonogrphr: CHELSEA Castellon, Cindy Abdalla RVT Pat. Stat.:Inpatient Room: ED34 Tape Vol: VM, CPT - 4: 00130 Echo Event ID:[id number] Order ID: [id number] Reason for Study:Leg pain and discoloration bilateraly. History of DM2, lefr toe amputation, PVD, ESRD, and bilateral balloon angioplasty. Procedures: Ankle/brachial pressures, Digit pressures, Non-imaging continuous wave Doppler, PPG waveform tracing Race: B SUMMARY: DOPPLER SIGNALS DOPPLER SIGNALS ARTERY RIGHT LEFT Posterior Tibial Abnormal Abnormal Dorsalis Pedis Abnormal Abnormal SEGMENTAL PRESSURE (mmHg): RIGHT LEFT Brachial 163 * Ankle DP Non-compressible 129 Ankle PT 120 118 Great Toe 36 Amputation ANKLE/BRACHIAL INDEX: RIGHT LEFT Dorsalis Pedis Non-Compressible 0.79 Posterior Tibial 0.74 0.72 TOE/BRACHIAL INDEX: RIGHT LEFT 0.22 unable to obtain PRELIMINARY FINDINGS: 1. Ankle/brachial indices fall into the moderate category in the left and right posterior tibial arteries and the left dorsalis pedis artery. 2. Ankle/brachial index in the right corey salis pedis was not able to be obtained due to non-compressible artery. 3. Toe/brachial index in the right falls into the qlbsfnub-tu-naahtd category. 4. Toe/brachial index in the left was un able to be obtained due to amputation. 5. See same day arterial duplex. PHYSICIAN INTERPRETATION: 1. Ankle/brachial indices fall into the moderate category in the left and right posterior tibial arteries and the left dorsalis pedis artery. 2. Ankle/brachial index in the right corey salis pedis was not able to be obtained due to non-compressible artery. 3. Toe/brachial index in the right falls into the ezoezbrp-op-maobax category. 4. Toe/brachial index in the left was un able to be obtained due to amputation. FINDINGS: Signed 04/29/2019 11:20 PM J Carlos Riddle MD, RPVI Performing Organization Address [facility] one Number [facility] [address] [place] [address] * ECG 12 lead (04/29/2019 6:14 PM AUTISM TUTOR) Only the most recent of 4 results within the time period is included. Ventricular 66 [facility] MUSE rate Atrial rate 66 [facility] M[facility] NC interval 184 [facility] QRSD interval 142 [facility] QT interval 488 [facility] QTC interval 511 [facility] P axis 1 73 [facility] MUSE QRS axis 1 -43 [facility] M[facility] T wave axis -12 [facility] M[facility] EKG impression Normal sinus rhythm-Possible [facility] MUSE Left atrial enlargement-Left axis deviation-Right bundle branch block-Septal infarct , age undetermined-Abnormal ECG-In automated comparison with ECG of -APR-2019 05:20,-Septal infarct is now present-Inverted T waves have replaced nonspecific T wave abnormality in Anterior leads- Specimen Narrative Performed At This result has an attachment that is n ot available. Performing Organization Address [facility] one Number [facility] [address] [place] [address] * Partial thromboplastin time, activated (04/29/2019 5:59 PM AUTISM TUTOR) Only the most recent of 2 results within the time period is included. [facility] PTT 38.4 (H) 23.0 - 36.0 sec RARITAN Comment: YAZDANISM PTT therapeutic range for HOSPITAL unfractionated heparin is 61.0-112.0 seconds which corresponds to Anti-Xa 0.3-0.7 U/ml. Specimen Blood Performing Organization Address City/[facility] one Number [facility] DEPARTMENT OF [address] [place] [address] PATHOLOGY AND GENOMIC MEDICINE [address] * Prothrombin time with INR (04/29/2019 5:59 PM AUTISM TUTOR) Only the most recent of 2 results within the time period is included. Pathologist [facility] Prothrombin 14.3 11.5 - 14.5 sec [facility] INR 1.1 RARITAN Comment: YAZDANISM The International Normalized HOSPITAL Ratio (INR) is a therapeutic monitoring tool for patients who are stable on oral anticoagulant therapy. An INR of 2.0-3.0 is suggested for deep vein thrombosis/pulmonary embolism. Specimen Blood Performing Organization Address [facility] one Number [facility] DEPARTMENT OF [address] [place] [address] PATHOLOGY AND GENOMIC MEDICINE [address] * Type and screen (04/29/2019 5:59 PM AUTISM TUTOR) Pathologist [facility] ABO grouping A [facility] Rh type POS [facility] Antibody screen NEG RARITAN (gel) [facility] Specimen Blood Performing Organization Address [facility] one Number [facility] DEPARTMENT OF [address] [place] [address] PATHOLOGY AND GENOMIC MEDICINE [address] * Comprehensive metabolic panel (04/29/2019 5:59 PM AUTISM TUTOR) Only the most recent of 3 results within the time period is included. Sodium 142 135 - 148 mEq/L [facility] Potassium 4.8 3.5 - 5.0 mEq/L [facility] Chloride 93 (L) 98 - 112 mEq/L [facility] CO2 30 24 - 31 mEq/L [facility] Anion gap 19@ANIO (H) 7 - 15 mEq/L [facility] BUN 45 (H) 8 - 23 mg/dL [facility] Creatinine 9.78 (H) 0.70 - 1.20 mg/dL [facility] Glucose 285 (H) 65 - 99 mg/dL [facility] Calcium 7.8 (L) 8.8 - 10.2 mg/dL [facility] Protein 7.7 6.3 - 8.3 g/dL RARITAN Comment: YAZDANISM Dprxmfu5247.6-7.0 g/dL HOSPITAL 1 kbcf6077.4-7.6 g/dL 7 months-3jzvx245.1-7.3 g/dL 1-2 hihui247.6-7.5 g/dL >3 .0-8.0 g/dL 18-4656761.3-8.3 g/dL Albumin 3.4 (L) 3.5 - 5.0 g/dL [facility] A/G ratio 0.8 0.7 - 3.8 [facility] Alkaline 128 40 - 129 U/L RARITAN phosphatase [facility] AST 19 10 - 50 U/L [facility] ALT 8 5 - 50 U/L [facility] Total bilirubin 0.5 0.0 - 1.2 mg/dL [facility] Specimen Plasma specimen Performing Organization Address City/State/[facility] Ph one Number [facility] DEPARTMENT OF [address] [place] [address] PATHOLOGY AND GENOMIC MEDICINE [address] * ECG ED Preliminary Interpretation - Not an Order (04/29/2019 5:43 PM AUTISM TUTOR) Only the most recent of 2 results within the time period is included. Narrative Performed At Tremayne Calle MD 05/04/2019 5:28 PM ECG ED Preliminary Interpretation - Not an Order Performed by: Tremayne Calle MD Authorized by: Tremayne Calle MD ECG reviewed by ED Physician in the abs ence of a boilermaker industrial boilers: yes Interpretation: Interpretation: abnormal Rate: ECG rate: 66 ECG rate assessment: normal Rhythm: Rhythm: sinus rhythm Ectopy: Ectopy: none QRS: QRS axis: Left QRS intervals: Normal Conduction: Conduction: abnormal Abnormal conduction: complete RBBB ST segments: ST segments: Normal T waves: T waves: inverted Inverted: V2 Other findings: Other findings: LAE * Magnesium level (04/24/2019 6:30 AM AUTISM TUTOR) Only the most recent of 2 results within the time period is included. Magnesium 2.0 1.6 - 2.4 mg/dL [facility] Specimen Plasma specimen Performing Organization Address City/State/Zipcode Ph one Number [facility] DEPARTMENT OF [address] [place] [address] PATHOLOGY AND GENOMIC MEDICINE [address] * Troponin (04/23/2019 4:00 AM AUTISM TUTOR) Only the most recent of 7 results within the time period is included. [facility] Sofy Troponin 0.662 (H) 0.000 - 0.040 ng/mL RARITAN Comment: YAZDANISM In patients suspected of HOSPITAL having a myocardial infarction, along with all other appropriate clinical measures and actions including ECG and other diagnostics as appropriate, measure Ultra TnI at 0 hrs and at 3 hrs. Myocardial infarction VERY LIKELY The 0 hr TnI level is > 0.10 ng/mL Myocardial infarction LIKELY The 0 hr TnI level is > 0.04 ng/mL and 3 hr level is increased or decreased by at least 0.020 ng/mL Myocardial infarction VERY UNLIKELY Both the 0 hr and 3 hr TnI levels <= 0.04 ng/mL(within normal limits) OR 0 hr is > 0.04 ng/mL and 3 hr is increased OR decreased by less than 0.020 ng/mL Specimen Plasma specimen Performing Organization Address City/State/Zipcode Ph one Number [facility] DEPARTMENT OF [address] [place] [address] PATHOLOGY AND GENOMIC MEDICINE [address] * malthouse laborer procedure (04/22/2019 3:09 PM AUTISM TUTOR) Specimen Addenda Addendum by Edy Lugo MD on 04/26/2019 5:10 PM Moderate conscious sedation was administered from 14:24 ( time) with physician monitoring of patient consciousness, O2 saturation, BP, HR for a total duration of [address] Lugo was present and scrubbed in for entire duration of case. PROCEDURES PERFORMED Selective coronary angiography PCI of LAD SPRING REPAIRER HELPER HAND Edy Lugo MD FELLOW Cath fellow- Marie Jurado MD Interventional Fellow- Neo Ortiz MD DIAGNOSTIC CORONARY ANGIOGRAM FINDINGS Left main- No significant stenosis LAD- Moderate diffuse disease. Proximal LAD is calcified and has severe (95%) stenosis. Ramus intermedius- No significant stenosis. LCX- Minimal diffuse disease. OM 1 is large and is bifurcating. Mild ( 30%) stenosis just proximal to bifurcation. RCA- Minimal diffuse disease. Mild (30%) stenosis noted in mid RCA. PROCEDURE DETAILS After obtaining informed consent, the patient was brought to the cardiac catheterization suite. The right groin was prepped and draped in normal sterile fashion. The right femoral artery was located, skin was infiltrated was lidocaine. The artery was accessed using the Seldinger technique, and a 4Fr sheath was inserted. Coronaries were visualized with JL4 and 3DRC catheters. Attention was then turned to the LAD lesion. 4 Fr sheath was exchanged for 6 Fr sheath. PERCUTANEOUS CARDIAC INTERVENTION REPORT Interventional Fellow: Edouard Ortiz EQUIPMENT/ANTICOAGULATION: Right Common Femoral Artery 6F Sheath XB LAD 3.5 Guide Catheter Courtney Blue coronary wire Anticoagulation: Angiomax bolus and Infusion with ACT >250 sec prior to procedure PROCEDURAL DETAILS: The LMT was engaged with the XB 3.5 Guide Catheter and a Courtney Blue coronary wire was advanced into the distal LAD. The lesion in the proximal LAD was pre-dilated with a 3.25 x 10mm Firth cutting balloon at 8 elodia and stented with a 3.5 x 23mm Xience LALA. We then post-dilated the length of the stent with a 3.75 x 20mm NC balloon at 20-22 elodia. Final angiography revealed no evidence of dissection or perforation; there was AURELIA 3 flow and 0% residual stenosis. HEMOSTASIS: Proglide Closure Device COMPLICATIONS None PLAN: 1. ASA 81mg daily 2. Clopidogrel 75mg daily . 3. Cardiac medical therapy and aggressive risk factor modification. Cardiac rehabilitation. 4. Transferred in stable condition Narrative Performed At [facility] Moderate conscious sedation was adminis tered from 14:24 ( time) with physician monitoring of patient co nsciousness, O2 saturation, BP, HR for a total duration of [address] Lugo was present and scrubbed in for entire duration of case. PROCEDURES PERFORMED Selective coronary angiography PCI of LAD SPRING REPAIRER HELPER HAND Edy Lugo MD FELLOW Cath fellow- Marie Jurado MD Interventional Fellow- Neo Ortiz MD DIAGNOSTIC CORONARY ANGIOGRAM FINDINGS Left main- No significant stenosis LAD- Moderate diffuse disease. Proximal LAD is calcified and has severe (95%) stenosis. Ramus intermedius- No significant steno sis. LCX- Minimal diffuse disease. OM 1 is l arge and is bifurcating. Mild ( 30%) stenosis just proximal to bifurcat ion. RCA- Minimal diffuse disease. Mild (30% ) stenosis noted in mid RCA. PROCEDURE DETAILS After obtaining informed consent, the p atient was brought to the cardiac catheterization suite. The right groin was prepped and draped in normal sterile fashion. The right femoral jaxson ry was located, skin was infiltrated was lidocaine. The artery w as accessed using the Seldinger technique, and a 4Fr sheath was inserte d. Coronaries were visualized with JL4 and 3DRC catheters. Attention was then turned to the LAD le courtney. 4 Fr sheath was exchanged for 6 Fr sheath. PERCUTANEOUS CARDIAC INTERVENTION REPOR T Interventional Fellow: Edouard Ortiz EQUIPMENT/ANTICOAGULATION: Right Common Femoral Artery 6F Sheath XB LAD 3.5 Guide Catheter Courtney Blue coronary wire Anticoagulation: Angiomax bolus and I nfusion with ACT >250 sec prior to procedure PROCEDURAL DETAILS: The LMT was engaged with the XB 3.5 G uide Catheter and a Courtney Blue coronary wire was advanced into the dis genia LAD. The lesion in the proximal LAD was pre-dilated with a 3.25 x 10mm Firth cutting balloon at 8 elodia and stented with a 3.5 x 23mm Xience DE S. We then post-dilated the length of the stent with a 3.75 x 20mm NC ball oon at 20-22 elodia. Final angiography revealed no evidence of dissection or p erforation; there was AURELIA 3 flow and 0% residual stenosis. HEMOSTASIS: Proglide Closure Device COMPLICATIONS None PLAN: 1. ASA 81mg daily 2. Clopidogrel 75mg daily . 3. Cardiac medical therapy and aggressi ve risk factor modification. Cardiac rehabilitation. 4. Transferred in stable condition Performing Organization Address [facility] one Number [facility] [address] [place] [address] * Activated clotting time (04/22/2019 2:42 PM AUTISM TUTOR) [facility] Activated 436 (H) 96 - 152 sec RARITAN clotting time Comment: YAZDANISM Auto Body Painter Name: [facility] Device ID: [id number] Specimen Performing Organization Address [facility] one Number [facility] DEPARTMENT OF [address] [place] [address] PATHOLOGY AND [facility] [address] MEDICINE [address] * Anti Xa, unfractionated (04/22/2019 6:40 AM AUTISM TUTOR) Only the most recent of 3 results within the time period is included. [facility] Anti Xa, 0.29 (L)Comment: Therapeutic 0.30 - 0.70 U/mL RARITAN unfractionated Range: 0.30 - 0.70 U/mL [facility] Specimen Blood Performing Organization Address [facility] one Number [facility] DEPARTMENT OF [address] [place] [address] PATH[address] * Hepatitis B surface antigen (04/21/2019 1:35 PM AUTISM TUTOR) [facility] Hepatitis B Non-reactive Non-reactive RARITAN surface Ag [facility] Specimen Blood Performing Organization Address [facility] one Number [facility] DEPARTMENT OF [address] [place] [address] PATHOLOGY [facility] MEDICINE [address] * Echocardiogram complete w contrast and 3D if needed (04/21/2019 10:35 AM AUTISM TUTOR) Specimen Narrative Performed At [facility] Echo cardiography Report [address] [place] [address] Pat.Name: DUONG HERNANDEZ Pat.ID: [id number] .Date: 04/21/2019 Refer.MD: MINH BOBBY MD Exam Time: 9:40:00 AM Study Type:Routine Echo Height: 72in Weight: 184lb BSA: 2.06 m2 Age: 8 1955,63Y Sex: MALE BP: 141/79 HR: 58 bpm Sonogrphr: Loly Kennedy OTILIO Pat. 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 LV EF is normal. Diastolic dysfunction Grade II (Moderat e): Impaired relaxation with elevated LV filling pressures. FINDINGS: LV: LV size is normal. Concent nacho left ventricular remodeling. LV EF is normal. Overal l wall motion is normal. Estimated EF is 55-59%. RV: RV size is normal. RV syst olic function is normal. LA: LA volume is mildly enlarg ed. RA: RA size is normal. AO: Aortic root diameter is no rmal. JUDY: No pericardial effusion. SVn: Normal collapse of IVC dur ing inspiration is consistent with normal RA pressure. AV: No structural AV abnormali ties noted. MV: Mild thickening and calcif ication of mitral leaflets. PV: No structural PV abnormali ties noted. A trace of pulmonic regurgitation. TV: No structural TV abnormali ties noted. Oakes: Diastolic dysfunction Grade II (Moderate): Impaired relaxation with elevate d LV filling pressures. Other: Insufficient TR jet to christina mate PA systolic pressure. MEASUREMENTS: 2D Parasternal Long [place] Ao An 2.4 cm LVPWd 1.1 cm Ao Rtd 3.7 cm Index 1.8 cm/m2 LA Ds 4.1 cm IVSd 1.4 cm RWT 0.52 LVIDd 4.2 cm Index 2 cm/m2 LV Mass 189 g (122-1 74) LVIDs 2.8 cm LVM Index 92 g/m LV%fs 33 % LA Sng Plane LA Area 23 cm (8.8-2 3.4) LA Vol 74 ml Index 36 ml/m2 LA LngAx 5.9 cm RA Sng Plane RA Vol 45 ml Index 22 ml/m2 RA LngAx 4.7 cm RA Area 15 cm (8.3-1 9.5) LVOT Stroke Vol LVOT 2.5 cm LVOT LVOT Area 4.9 cm DOPPLER LVOT Stroke Vol LVOT TVI 16 cm LVOT CI 2.3 l/m/m LVOT SV 80 ml HR 59 bpm LVOT CO 4.7 l/min LVOT SVi 39 ml/m MV E/A Ratio MV pkE 97 cm/s (60-130 ) MV E/A 1.3 MV pkA 73 cm/s Signed 04/21/2019 04:31 PM Jim Liang M.D. Procedure Note Interface, Radiology Results In - 04/21/2019 4:31 PM AUTISM TUTOR Echocardiography Report [id number] [place] [id number] Pat.Name: DUONG HERNANDEZ Pat.ID: [id number] .Date: 04/21/2019 Refer.MD: MINH BOBBY MD Exam Time: 9:40:00 AM Study Type:Routine Echo Height: 72in Weight: 184lb BSA: 2.06 m2 Age: 8 1955,63Y Sex: MALE BP: 141/79 HR: 58 bpm Sonogrphr: Loly Kennedy RDCS Pat. Stat.:Inpatient Room: ED25 Study Status:Final Echo Event ID:[id number] Order ID: [id number] Reason for Study:Type II NM History / Clinical:Diabetes, Hypertension, Peripheral Vascular Disease, Degenerative cervical and lumbar spine disease Procedures: 2D Echo, Colorflow Doppler, Portable, Intravenous Definity Contrast Race: B SUMMARY: Concentric left ventricular remodeling. LV EF is normal. Diastolic dysfunction Grade II (Moderate): Impaired relaxation with elevated LV filling pressures. FINDINGS: LV: LV size is normal. Concentric left ventricular remodeling. LV EF is normal. Overall wall motion is normal. Estimated EF is 55-59%. RV: RV size is normal. RV systolic function is normal. LA: LA volume is mildly enlarged. RA: RA size is normal. AO: Aortic root diameter is normal. JUDY: No pericardial effusion. SVn: Normal collapse of IVC during inspiration is consistent with normal RA pressure. AV: No structural AV abnormalities noted. MV: Mild thickening and calcification of mitral leaflets. PV: No structural PV abnormalities noted. A trace of pulmonic regurgitation. TV: No structural TV abnormalities noted. Oakes: Diastolic dysfunction Grade II (Moderate): Impaired relaxation with elevated LV filling pressures. Other: Insufficient TR jet to estimate PA systolic pressure. MEASUREMENTS: 2D Parasternal Long [place] Ao An 2.4 cm LVPWd 1.1 cm Ao Rtd 3.7 cm Index 1.8 cm/m2 LA Ds 4.1 cm IVSd 1.4 cm RWT 0.52 LVIDd 4.2 cm Index 2 cm/m2 LV Mass 189 g (122-174) LVIDs 2.8 cm LVM Index 92 g/m LV%fs 33 % LA Sng Plane LA Area 23 cm (8.8-23.4) LA Vol 74 ml Index 36 ml/m2 LA LngAx 5.9 cm RA Sng Plane RA Vol 45 ml Index 22 ml/m2 RA LngAx 4.7 cm RA Area 15 cm (8.3-19.5) LVOT Stroke Vol LVOT 2.5 cm LVOT LVOT Area 4.9 cm DOPPLER LVOT Stroke Vol LVOT TVI 16 cm LVOT CI 2.3 l/m/m LVOT SV 80 ml HR 59 bpm LVOT CO 4.7 l/min LVOT SVi 39 ml/m MV E/A Ratio MV pkE 97 cm/s (60-130) MV E/A 1.3 MV pkA 73 cm/s Signed 04/21/2019 04:31 PM Jim Liang M.D. Performing Organization Address [facility] one Number CUPID [address] [place] [address] * XR Chest 1 Vw Portable (04/21/2019 3:04 AM AUTISM TUTOR) Specimen Narrative Performed At Examination: XR CHEST 1 VW PORTABLE RAD[facility] Clinical History: SOB Comparison: None. Technique: Single frontal view of the c hest is obtained. Findings: Low lung volume with vascular crowding is seen. Sternotomy wires are noted. Minimal right base subsegmental atelect asis is seen. No pneumothorax is seen. The heart size is normal. No pleural effusion is seen. Impression: Low lung volume with vascular crowding and right base minimal atelectasis. Otherwise no acute infiltrate identifie d. [facility]-[id number] Procedure Note Interface, Radiology Results Incoming - 04/21/2019 3:09 AM AUTISM TUTOR Examination: XR CHEST 1 VW PORTABLE Clinical History: SOB Comparison: None. Technique: Single frontal view of the chest is obtained. Findings: Low lung volume with vascular crowding is seen. Sternotomy wires are noted. Minimal right base subsegmental atelectasis is seen. No pneumothorax is seen. The heart size is normal. No pleural effusion is seen. Impression: Low lung volume with vascular crowding and right base minimal atelectasis. Otherwise no acute infiltrate identified. [facility]-[id number] Performing Organization Address [facility] one Number RAD[facility] [address] [place] [address] * B natriuretic peptide (04/21/2019 2:28 AM AUTISM TUTOR) BNP 1,151 (H) 0 - 100 pg/mL [facility] Specimen Blood Narrative Performed At ___GLU_ results called to and read back by _SUZY CRANDALL\\ ROBINA(name/location) [facility] DEPARTMENT OF at __ 04/21/2019 03:48 (date/time) by __NICKY. PATHOLOGY AND GENOMIC MEDICINE Performing Organization Address City/State/Zipcode Ph one Number [facility] DEPARTMENT OF [address] [place] [address] PATHOLOGY AND GENOMIC MEDICINE [address] * CTA Abdominal Aorta And Bilateral Iliofemoral Runoff W Wo Contrast (04/20/2019 9:54 AM AUTISM TUTOR) Specimen Narrative Performed At EXAMINATION: CT ANGIOGRAM ABDOMINAL AORTA AND BILAT ERAL ILIOFEMORAL RUNOFF W [facility] WO CONTRAST CLINICAL HISTORY: I87.1 Compression o f vein, I73.9 Peripheral vascular disease unspecified, Bilateral Pheripheral di sease to lower extremites TECHNIQUE: Multiple CT angiographic darron ges of the abdomen, pelvis, and bilateral lower extremities were obtained during intravenous administration of iodinated contrast. Multiple computerized reforma tted images as well as 3-D volume rendered images were also obtained. Precontrast images of the abdomen were also obtained. CT scans are performed using radiation dose reduction techniques. Technical factors are evaluated and adjusted to e nsure appropriate moderation of exposure. Automated dose management technology is applied to adjust radiation exposure while achieving a diagnostic quality image. COMPARISON: 10/15/2016 FINDINGS: Calcified plaque is present within the abdominal aorta which remains normal in caliber. There is no abdominal aortic d issection or aneurysm. The celiac and inferior mesenteric arteries remain wid mitchell patent. There is mild stable narrowing within the proximal superior mesenteric artery. Th ere is high-grade stenoses at the origins of both renal arteries supplying atroph ic kidneys. The common iliac and external iliac arteries are widely patent. High- grade narrowing is present at the origin the right internal iliac artery. No significant n arrowing seen within the left internal iliac artery. Stenoses are present with in branches of the right and left internal iliac arteries. A significant amount of calcified plaque is present within the arteries of both lower extremities. The right lower extremity runoff demons trates mild stenosis of the common femoral artery from posterior wall calc ified plaque, new since previous examination. The main profunda femoral artery is widely patent although stenoses are seen within the distal branches. The proximal mid superficial femoral artery widely patent although there is moderate stenoses of the dista l superficial femoral artery from calcified plaque, worsened since previo us exam (images 279-291, series 2). Moderate to high-grade stenosis of the above-knee popliteal ar paul is present from calcified plaque, new since previous examination. The bel ow-knee popliteal artery is widely patent. Evaluation of the tibial vessel s is limited due to calcified plaque obscuring evaluation of the vessel lumen. The anterior tibial a rtery remains occluded proximally. Multifocal stenoses are present through out the posterior tibial and peroneal artery, similar in appearance to previo us examination. Peroneal artery collaterals reconstitute the dorsalis pedis artery. The left lower extremity runoff demonst rates no significant common femoral artery stenosis. High-grade narrowing s uspected at the origin of the profunda femoral artery from calcified plaque, s table to previous examination. Mild to moderate narrowing of the distal superficial femoral artery i s new since previous examination. Mild to moderate stenoses of the above-knee pop liteal artery are new since previous examination. The below-knee popliteal a rtery is widely patent. The posterior tibial artery remains occluded proximally. Stenoses a nd occlusions are suspected also throughout the anterior tibial artery, similar to previous exam. Stenoses are again seen throughout the peroneal jaxson ry which is the dominant runoff vessel to the left foot, reconstituting the posterior tibial art abigail at the ankle. Limited early arterial phase imaging of the spleen, pancreas, and liver is normal. A 1.2 cm calcified gallstone is present in the gallbladder without gallbladder distention or inflammation. Both kidneys are atrophic and replaced by innumerable cysts, the largest on the right side measuring 2 c m. A 4 mm benign calcification is seen within the right kidney. There is no lymphadenopathy or ascites. Contrast is present throughout the stomach, small bowel, and colon. There are no inflammatory changes around the large or small bowel. Diverticula are p resent in the colon without findings of diverticulitis. There are no pelvic masses. Bladder is collapsed. Imaging of the soft tissues of both low er extremities demonstrates bilateral pedal edema. No enhancing soft tissue m asses or fluid collections are seen. There are multiple dilated venous colla terals are seen in the left chest wall and left abdomen, side suggestive of ce ntral venous stenosis in the chest, not included on this CT. There is volume loss and scarring in th e lung bases. The bones appear sclerotic, suggestive of findings from renal osteodystrophy. There are postsurgical changes in L3-4 with orthopedic hardware noted. IMPRESSION: 1.Calcified plaque is present within th e abdominal aorta which is normal in caliber. There is high-grade narrowing at the origin of the right internal iliac artery. 2.The right lower extremity runoff demo nstrates new mild stenosis of the common femoral artery. Moderate stenoses of th e distal superficial femoral artery have worsened since previous exam. Moderate to high-grade narrowing of the above-knee popliteal artery is also new. 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 Multifocal stenoses are aga in seen throughout the posterior tibial and peroneal artery. 3.The left lower extremity runoff demon strates stable high-grade narrowing at the origin of the profunda femoral jaxson ry from calcified plaque. There is mild to moderate narrowing of the distal sup erficial femoral artery, new since previous exam. Mild to moderate narrowing of the above-knee po pliteal artery is also new. The posterior tibial artery is occluded proximally, s imilar to previous exam. Stenoses and occlusions are again seen throughout th e anterior tibial artery, also stable. Multifocal stenoses are also present throughout th e peroneal artery. [facility]-[id number] Procedure Note Interface, Radiology Results Incoming - 04/20/2019 11:02 AM AUTISM TUTOR EXAMINATION: CT ANGIOGRAM ABDOMINAL AORTA AND BILATERAL ILIOFEMORAL RUNOFF W WO CONTRAST CLINICAL HISTORY: I87.1 Compression of vein, I73.9 Peripheral vascular disease unspecified, Bilateral Pheripheral disease to lower extremites TECHNIQUE: Multiple CT angiographic images of the abdomen, pelvis, and bilateral lower extremities were obtained during intravenous administration of iodinated contrast. Multiple computerized reformatted images as well as 3-D volume rendered images were also obtained. Precontrast images of the abdomen were also obtained. CT scans are performed using radiation dose reduction techniques. Technical factors are evaluated and adjusted to ensure appropriate moderation of exposure. Automated dose management technology is applied to adjust radiation exposure while achieving a diagnostic quality image. COMPARISON: 10/15/2016 FINDINGS: Calcified plaque is present within the abdominal aorta which remains normal in caliber. There is no abdominal aortic dissection or aneurysm. The celiac and inferior mesenteric arteries remain widely patent. There is mild stable narrowing within the proximal superior mesenteric artery. There is high-grade stenoses at the origins of both renal arteries supplying atrophic kidneys. The common iliac and external iliac arteries are widely patent. High-grade narrowing is present at the origin the right internal iliac artery. No significant narrowing seen within the left internal iliac artery. Stenoses are present within branches of the right and left internal iliac arteries. A significant amount of calcified plaque is present within the arteries of both lower extremities. The right lower extremity runoff demonstrates mild stenosis of the common femoral artery from posterior wall calcified plaque, new since previous examination. The main profunda femoral artery is widely patent although stenoses are seen within the distal branches. The proximal mid superficial femoral artery widely patent although there is moderate stenoses of the distal superficial femoral artery from calcified plaque, worsened since previous exam (images 279-291, series 2). Moderate to high-grade stenosis of the above-knee popliteal artery is present from calcified plaque, new since previous examination. The below-knee popliteal artery is widely patent. Evaluation of the tibial vessels is limited due to calcified plaque obscuring evaluation of the vessel lumen. The anterior tibial artery remains occluded proximally. Multifocal stenoses are present throughout the posterior tibial and peroneal artery, similar in appearance to previous examination. Peroneal artery collaterals reconstitute the dorsalis pedis artery. The left lower extremity runoff demonstrates no significant common femoral artery stenosis. High-grade narrowing suspected at the origin of the profunda femoral artery from calcified plaque, stable to previous examination. Mild to moderate narrowing of the distal superficial femoral artery is new since previous examination. Mild to moderate stenoses of the above-knee popliteal artery are new since previous examination. The below-knee popliteal artery is widely patent. The posterior tibial artery remains occluded proximally. Stenoses and occlusions are suspected also throughout the anterior tibial artery, similar to previous exam. Stenoses are again seen throughout the peroneal artery which is the dominant runoff vessel to the left foot, reconstituting the posterior tibial artery at the ankle. Limited early arterial phase imaging of the spleen, pancreas, and liver is normal. A 1.2 cm calcified gallstone is present in the gallbladder without gallbladder distention or inflammation. Both kidneys are atrophic and replaced by innumerable cysts, the largest on the right side measuring 2 cm. A 4 mm benign calcification is seen within the right kidney. There is no lymphadenopathy or ascites. Contrast is present throughout the stomach, small bowel, and colon. There are no inflammatory changes around the large or small bowel. Diverticula are present in the colon without findings of diverticulitis. There are no pelvic masses. Bladder is collapsed. Imaging of the soft tissues of both lower extremities demonstrates bilateral pedal edema. No enhancing soft tissue masses or fluid collections are seen. There are multiple dilated venous collaterals are seen in the left chest wall and left abdomen, side suggestive of central venous stenosis in the chest, not included on this CT. There is volume loss and scarring in the lung bases. The bones appear sclerotic, suggestive of findings from renal osteodystrophy. There are postsurgical changes in L3-4 with orthopedic hardware noted. IMPRESSION: 1.Calcified plaque is present within the abdominal aorta which is normal in caliber. There is high-grade narrowing at the origin of the right internal iliac artery. 2.The right lower extremity runoff demon strates new mild stenosis of the common femoral artery. Moderate stenoses of the distal superficial femoral artery have worsened since previous exam. Moderate to high-grade narrowing of the above-knee popliteal artery is also new. 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 Multifocal stenoses are again seen throughout the posterior tibial and peroneal artery. 3.The left lower extremity runoff demons trates stable high-grade narrowing at the origin of the profunda femoral artery from calcified plaque. There is mild to moderate narrowing of the distal superficial femoral artery, new since previous exam. Mild to moderate narrowing of the above-knee popliteal artery is also new. The posterior tibial artery is occluded proximally, similar to previous exam. Stenoses and occlusions are again seen throughout the anterior tibial artery, also stable. Multifocal stenoses are also present throughout the peroneal artery. [facility]-[id number] Performing Organization Address City/State/Zipcode Ph one Number [facility] [address] [place] [address] * Single antigen beads (01/11/2019 7:10 AM AUTISM TUTOR) Only the most recent of 4 results within the time period is included. [facility] serum ID [id number] [facility] SAB serum 01/11/2019 07:10 AM RARITAN collection D&T [facility] SAB class I B37 RARITAN antibody [facility] SAB cPRA class 2 [facility] SAB class II Negative [facility] SAB cPRA class 0 [facility] Single antigen See link below for PDF Lab RARITAN beads Report [facility] Specimen Blood Performing Organization Address City/State/Zipcode Ph one Number [facility] DEPARTMENT OF [address] [place] [address] PATHOLOGY AND GENOMIC MEDICINE [address] * Splint Application (01/05/2019 9:09 PM CDT) Narrative Performed At Nikole Esteban NP 01/05/2019 9:10 PM Splint Application Performed by: Nikole Esteban NP Authorized by: Andrew Rhodes DO Consent: Consent obtained: Verbal Consent given by: Patient Risks discussed: Skin discoloration , distal paresthesia, pain and swelling Alternatives discussed: Delayed eloy atment, alternative treatment and observation Pre-procedure details: Sensation: Normal Procedure details: Location: Foot Splint type: Short leg Supplies: Ortho-Glass Post-procedure details: Pain: Improved Sensation: Normal Patient tolerance of procedure: Pastor erated well, no immediate complications * Laceration Repair (01/05/2019 7:58 PM CDT) Narrative Performed At Andrew Rhodes DO 01/06 6:25 AM Laceration Repair Performed by: Andrew Rhodes DO Authorized by: Andrew Rhodes DO Consent: Consent obtained: Verbal Consent given by: Patient Risks discussed: Pain Alternatives discussed: No treatmen t and delayed treatment Ulman protocol: Procedure explained and questions ans wered to patient or proxy's satisfaction: yes Patient identity confirmed: Arm bebeto d and verbally with patient Anesthesia (see MAR for exact dosages): Anesthesia method: Local infiltrati on Local anesthetic: Lidocaine 1% w/o epi Laceration details: Location: Toe Toe location: R big toe Repair type: Repair type: Simple Pre-procedure details: Preparation: Patient was prepped an d draped in usual sterile fashion Exploration: Hemostasis achieved with: Direct pr essure Contaminated: no Treatment: Wound cleansed with: Alcohol. Amount of cleaning: Standard Skin repair: Repair method: Sutures Suture size: 2-0 Suture material: Prolene Suture technique: Simple interrupte d Approximation: Approximation: Close Vermilion border: well-aligned Post-procedure details: Dressing: Sterile dressing (Surgice l and dry dressing) Patient tolerance of procedure: Pastor erated well, no immediate complications * HLA allogeneic crossmatch (11/04/2018 4:05 PM CDT) Only the most recent of 6 results within the time period is included. [facility] Results called to Júnior Gutiérrez on 11/04/2018 at 9:[address] om by Venkat Palacio. [facility] read-back obtained. [facility] source Peripheral Blood [facility] donor UNJERROD, [id number] RARITAN full name [facility] donor [facility] current [id number] RARITAN serum ID [facility] serum 10/14/2018 11:28 AM RARITAN collection D&T [facility] X[facility] flow XM T Negative RARITAN cell result, [facility] X[facility]LA flow XM B Negative RARITAN cell result, [facility] HLA crossmatch See link below for PDF Lab RARITAN Report [facility] Specimen Blood Performing Organization Address City/State/Zipcode Ph one Number [facility] DEPARTMENT OF [address] [place] [address] PATHOLOGY AND GENOMIC MEDICINE [address] [address] [facility] after 07/28/2018 Insurance Type Payer Benefit Subscriber ID Effective Phone Address Plan / Dates Group Medicare MEDICARE MEDICARE xxxxxxxxxxx [id number] RARITAN, PART A AND resent [place] Advance Directives For more information, please contact: [phone] Patient Count Room Clerk Explanation Type Date Recorded Advance Directives, 05/05/2015 3:51 PM Living Will and Medical Power of Window Installer Advance Directives, 05/05/2015 5:58 PM Living Will and Medical Power of Window Installer Directive Advance Directives, 01/29/2018 10:58 AM Living Will and Medical Power of Window Installer Advance Directives, 11/28/2016 7:44 AM Living Will and Medical Power of Window Installer Advance Directives, 07/26/2018 10:32 AM Living Will and Medical Power of Window Installer
--- OUTSIDE RECORDS SUMMARY | 2019-07-29 14:21 | XMS REPORT ---
Author Author [facility] t Organization [facility] Address [address] [facility] [address] [place] [address] Phone Unavailable Care Team Providers Care Alcoholic Counselor Name Role Phone NONSTAFF PCP Unavailable Fer CONFLICTS ANALYST-C, Angelita Jackson Attphys ZONIA BURNETT Attphys Unavailable Mary Glover MD Attphys Carmen Calle MD [facility] Attphys Duong Shepherd MD Attphys Gómez Dietz MD Attphys Kolton GREEN, Tricia Mullen Attphys Reuben GREEN, Duong Melendez Attphys Lyndon GREEN, Maria R Attphys Diamante GREEN, Ofelia Wilkinson Attphys [phone] Mylene GREEN, Mary Snow Attphys Elmer NAGEL, Elizabeth Attphys Unavailable Anne NAGEL, Yajaira Attphys Unavailable Griffin GREEN, Italia Larson Attphys Carmelo DO, Miguel Morales Attphys [phone] ANGELITA ESQUIVEL Attphys Unavailable Jean Marie DO, Akosua Sullivan Attphys Jodie RN, Mc Attphys Unavailable Lui ALMONTE, Rica Attphys Unavailable Cynthia GREEN, Angelita Queen Attphys Liv ALMONTE, Michell Attphys Unavailable Nayely RN, Ilda Attphys Unavailable Milly ALMONTE, Destiney Attphys Unavailable Lizette LANDAVERDE, Hamida Attphys Unavailable Margaret ALMONTE, Sha Attphys Unavailable Bia GREEN, Yfn Attphys Radha NAGEL, Michell Attphys Unavailable Nancy ALMONTE, Marcellus Attphys Unavailable Julissa Vogel MA, Theresa Attphys Unavailable Yuki GREEN, Sandi Strauss Attphys Elmer ALMONTE, Chelsie Julienphys Unavailable ZONIA BURNETT Admphys Unavailable ALLISON, SAVIAMED Admphys Unavailable DIAMANTE, MINH Admphys Unavailable ANGELITA ESQUIVEL Admphyvik Unavailable Payers Payer Name Policy Type Policy Number Effective Date Expiration Date S poly MEDICAREMEDICARE PART A AND Bxxxxxxxxxxx2003-PresentHOUS WICHO PRMedicare xxxxxxxxxxx 2003 00:00:00 [facility] Medicare A & B [id number] 2003 00:00:00 [facility] Medicare A & B [id number] 2003 00:00:00 [facility] Problems Condition Name Condition Details Condition Category Status Onset Date Resolution Date Last Treatment Date Treating Clinician Comments Source Claudication Claudication Disease Active 2019-04-30 00:00:00 Ryne Thrasher T2DM (type 2 diabetes mellitus) T2DM (type 2 diabetes mellitus) Dis ease Active 2019-04-30 00:00:00 Ryne Thrasher Unstable angina Unstable angina Disease Active 2019-04-21 00:00:00 Ryne Thrasher Dialysis AV fistula malfunction Dialysis AV fistula malfunction Dis ease Active 2018-08-27 00:00:00 Overview: Ad ded automatically from request for surgery [id number] Ryne Thrasher Combined forms of age-related cataract of right eye Co mbined forms of age- related cataract of right eye Disease Active 2018-06-17 00:00:00 Ryne Thrasher End stage renal disease End stage renal disease Disease Active 2016-07-22 00:00:00 Overview: Added automaticall y from request for surgery [id number] Ryne Thrasher Dependence on hemodialysis Dependence on hemodialysis Disease Active 2016-07-22 00:00:00 Overview: Added automaticall y from request for surgery [id number] Ryne Thrasher Essential hypertension Essential hypertension Disease Active 2015-12-19 00:00:[address] Compression of vein Compression of vein Disease Active 2015-12-19 00:00 :00 Ryne Thrasher End-stage renal disease End-stage renal disease Disease Active 2015-12-19 00:00:[address] Vascular device, implant, or graft complication Vascul ar device, implant, or graft complication Disease Active 2015-12-19 00:00:00 Ryne Thrasher Dialysis complication Dialysis complication Disease Active 201 08-17-10 00:00:00 Ryne Parks t Diabetes mellitus Diabetes Problem Active [facility] Osteomyelitis of left foot Foot osteomyelitis, left Problem Active [facility] Allergies, Adverse Reactions, Alerts Allergy Name Allergy Type Status Severity Reaction(s) Onset Date Inacti ve Date Treating Clinician Comments Source Iodinated Contrast Media Propensity to adverse reactions to drug Ac tive Other (See Comments) 2019-04-30 00:00:00 "Pt states i t turns his lips black and starts to peel" Ryne Thrasher Heparin Allergy to Substance Active Unknown 2018-12-29 00:00:00 [facility] Iodine Propensity to adverse reactions to drug Active Other (See Comments) 2018-11-12 00:00:00 "Pt states it turns his lips black and starts to peel" Ryne Thrasher Family History Family Member Diagnosis Comments Start Date Stop Date Source Natural father No Known Problems Tayler edgardo Thrasher Natural mother Hypertension Ryne Thrasher Paternal grandfather Diabetes Hous wicho Thrasher Paternal grandfather Hypertension Ho beltran Thrasher Paternal grandfather Kidney disease Ryne Thrasher Paternal grandmother Diabetes [place] Gnosticism Paternal grandmother Hypertension Ho beltran Thrasher Paternal grandmother Kidney disease Ryne Thrasher Natural sister Diabetes [facility] thod[facility] Natural sister Kidney disease Alyson Thrasher Social History Social Habit Start Date Stop Date Quantity Comments Source Sex Assigned At Tayler Thrasher Alcohol intake 2019-05-05 00:00:00 2019-05-05 00:00:00 Current non-drinker of alcohol (finding) Ryne Thrasher Alcohol Comment 2015-12-19 00:00:00 2015-12-19 00:00:00 none Ryne Thrasher Smoking Status Start Date Stop Date Source Never smoker Ryne paris Medications Ordered Medication Name Filled Medication Name Start Date Stop Da te Current Medication? Ordering Clinician Indication Dosage Frequency Signature (SIG) Comments Components Source Amlodipine Besylate (Norvasc) 10 Mg Tab Amlodipine Besylate (Norvasc) 10 Mg Tab 2019-06-22 00:00:00 Yes Mary Glover Pathology Collector 10 Daily [facility] Aspirin (Aspirin Chew) 81 Mg Chew Aspirin (Aspirin Chew) 81 Mg Chew 2019-06-22 00:00:00 Yes Mary Glover Pathology Collector 81 Daily [facility] Atorvastatin 40 Mg Tab Atorvastatin 40 Mg Tab 2019-06-22 00:00:00 Yes Mary Glover Pathology Collector 40 Bedtime [facility] Calcium Acetate 1,334 Cap Calcium Acetate 1,334 Cap 2019-06-22 00:00: 00 Yes Mary Glover Pathology Collector 1334 Three Times Daily With Meals [facility] Hydrocodone/Apap 10MG-325MG 1 Ea Tab Hydrocodone/Apap 10MG-3 25MG 1 Ea Tab 2019-06-22 00:00:00 Yes Mary M [place] Pathology Collector 1 Every 6 Hours as needed for Moderate Pain (4-6) [facility] Insulin Glargine 100 Units/Ml Vial Insulin Glargine 100 Unit s/Ml Vial 2019-06-22 00:00:00 Yes Mary M [place] Pathology Collector 15 Bedtime [facility] Insulin Lispro 100 Unit/1 Ml Vial Insulin Lispro 100 Unit/1 Ml Vial 2019-06-22 00:00:00 Yes Amry M Adalberto Pathology Collector 0 Before Meals And A t Bedtime [facility] Pregabalin (Lyrica) 75 Mg Cap Pregabalin (Lyrica) 75 Mg Cap 2019 00:00:00 Yes Mary M Adalberto Pathology Collector 75 Daily [facility] Zolpidem Tartrate (Ambien) 5 Mg Tablet Zolpidem Tartrate (Am ran) 5 Mg Tablet 2019-06-22 00:00:00 Yes Mary M [place] Pathology Collector 5 Bedtime [facility] lanthanum (FOSRENOL) 1000 MG chewable tablet 2019-05-04 16:40:02 Yes 1000mg Q.[id number] Chew 1,000 mg 3 (three) times a day w ith meals. Ryne Thrasher calcium acetate (PHOSLO) 667 mg capsule 2019-05-04 16:40:02 Yes 1334mg Q.[id number] Take 1,334 mg by mouth 3 (three) times a day with meals. Ryne Thrasher gabapentin (NEURONTIN) 100 mg capsule 2019-05-04 16:40:02 Yes 100mg Q.5D Take 100 mg by mouth 2 (two) times a day. Ryne Thrasher insulin ASPART (NovoLOG) 100 unit/mL injection 2019-05-04 16:40: 02 Yes 10U Q.[id number] Inject 10 Units under the sk in 3 (three) times a day before meals. Ryne Thrasher metoprolol tartrate (LOPRESSOR) 100 mg tablet 2019-05-04 16:40:0 2 Yes 100mg Q.5D Take 100 mg by mouth 2 (two) times a day. Ryne Thrasher clopidogreL (PLAVIX) 75 mg tablet 2019-05-04 16:40:02 Yes 75mg QD Take 75 mg by mouth daily. Ryne Thrasher calcium acetate,phosphat bind, (PHOSLO) 667 mg capsule 2019-05-04 16:40:02 Yes 1334mg Take 1,334 mg by mouth with snacks. Ryne Thrasher clonIDINE HCl (CATAPRES) 0.2 MG tablet 2019-04-11 5 00:00:00 2020-05-03 23:59:00 Yes .2mg Q.5D Take 1 tablet (0.2 mg total) by mouth 2 (two) times a day. Ryne Thrasher nitroglycerin (NITROSTAT) 0.4 MG SL tablet 05-04 00:00:00 2020-05-03 23:59:[address] 1 tablet (0.4 mg total) under the tongue every 5 (five) minutes as needed for chest pain. Ryne Thrasher pentoxifylline (TRENTal) 400 mg CR tablet 05-04 00:00:00 2020-05-03 23:59:00 Yes 400mg Q.5D Take 1 tablet (400 mg total) by mouth 2 (two) times a day. Ryne Thrasher aspirin 81 mg chewable tablet 2019-04-25 00:00:00 2019-05-25 23: 59:00 No 81mg QD Chew 1 tablet (81 mg total) daily for 30 days. Ryne Thrasher calcium acetate (PHOSLO) 667 mg capsule 11:04:08 2019-04-24 00:00:00 No 1334mg Take 1,334 mg by mouth with sna cks. Ryne Thrasher isosorbide mononitrate (IMDUR) 30 MG 24 hr tablet 2019-04-24 00:00:00 2020-04-23 23:59:00 No 30mg QD Take 1 tab let (30 mg total) by mouth daily. Ryne Thrasher atorvastatin (LIPITOR) 80 MG tablet 2019-04-24 00:00:0 0 2019-05-24 23:59:00 No 80mg QD Take 1 tablet (80 mg total) by mouth nig htly for 30 days. Ryne Thrasher calcium acetate (PHOSLO) 667 mg capsule 00:00:00 2019-04-30 00:00:00 No 1,334 mg with snacks PRN Ryne Thrasher metoprolol succinate XL (TOPROL-XL) 100 mg 24 hr tablet 2019-04-21 08:55:45 2019-04-21 00:00:00 No 100mg QD Take 100 mg by mouth daily. Ryne Thrasher insulin lispro (HumaLOG) 100 unit/mL cartridge 2 08:55:31 2019-04-21 00:00:00 No Humalog Ryne Thrasher ofloxacin (FLOXIN) 0.3 % otic solution 5 00:00:00 2018-11-19 23:59:00 No 5[drp] Q.5D Administer 5 d rops into the left ear 2 (two) times a day for 7 days. Ryne Thrasher erythromycin 0.5% (ILOTYCIN) 5 mg/gram (0.5 %) ophthalmic oi ntment 2018-07-26 00:00:00 2018-08-02 23:59:[address] a 1/2 inch ribbon of ointment into the left lower eyelid every 3 hrs [place] ab[place] Thrasher SENSIPAR 60 mg tablet 2018-05-08 00:00:00 Yes 60mg QD Take 60 mg by mouth daily. Ryne Thrasher ofloxacin (OCUFLOX) 0.3 % ophthalmic solution 28-03-17 00:00:00 2019-04-21 00:00:00 No Ryne Thrasher prednisoLONE acetate (PRED FORTE) 1 % ophthalmic suspension 2018-03-27 00:00:00 2019-04-21 00:00:00 No Ryne Thrasehr traMADol (ULTRAM) 50 mg tablet 2018-03-18 00:00:00 Yes 50mg Q12H Take 50 mg by mouth every 12 (twelve) hours as needed for moderate pain. Ryne Thrasher simvastatin (ZOCOR) 20 mg tablet 2016-01-12 12:42:00 Yes 20mg Take 20 mg by mouth at bedtime. [facility] glipiZIDE (GLUCOTROL) 10 mg tablet 2016-01-12 12:42:00 Yes 10mg Q.5D Take 10 mg by mouth 2 times daily (before meals). [facility] metoprolol (TOPROL XL) 100 mg extended release tablet 2016-01-12 12:42:00 Yes 100mg QD Take 100 mg by mouth daily. [facility] amitriptyline (ELAVIL) 50 mg tablet 2016-01-12 12:42:00 Yes 50mg Take 50 mg by mouth at bedtime. [facility] VICODIN 5 MG-500 MG TAB 2009-10-02 00:00:00 Yes D ental caries take 1 tablet by oral route every 4-6 hours as needed for pain [facility] CHLORHEXIDINE GLUCONATE 0.12 % MOUTHWASH 2009-10-02 00:00:[address] 15 milliliters in the mouth by mucous membrane route 2 times per day (after meals), swish in mouth for 30 seconds then spit out [facility] Cinacalcet Hcl (Sensipar) 60 Mg Tablet Cinacalcet Hcl (Sensipar) 60 Mg Tablet Yes 60 Before Meals [facility] Clopidogrel Bisulfate (Plavix) 75 Mg Tablet Clopidogre l Bisulfate (Plavix) 75 Mg Tablet Yes 75 Daily [facility] Metoprolol Tartrate 100 Mg Tablet Metoprolol Tartrate 100 Mg Tablet Yes 100 Twice A Day [facility] Calcium Acetate 667 Mg Capsule, 2 Tab Oral Calcium Humza beaver 667 Mg Capsule, 2 Tab Oral 2019-06-22 00:00:00 No 2 Before Meals [facility] Gabapentin 100 Mg Capsule, 100 Mg Oral Gabapentin 100 Mg Capsule , 100 Mg Oral 2019-06-22 00:00:00 No 100 Twice A Day [facility] Insulin Aspart (Novolog) 100 Units/1 Ml Inj, 10 Unit S ub-Q Insulin Aspart (Novolog) 100 Units/1 Ml Inj, 10 Unit Sub-Q 2019-06-22 00:00:00 No 10 Before Meals [facility] Lanthanum Carbonate (Fosrenol) 1,000 Mg Tab.chew, 1000 Mg Oral Lanthanum Carbonate (Fosrenol) 1,000 Mg Tab.chew, 1000 Mg Oral 2019-06-22 00: 00:00 No 1000 Before Meals [facility] Tramadol Hcl (Ultram) 50 Mg Tablet, 50 Mg Oral Tramado l Hcl (Ultram) 50 Mg Tablet, 50 Mg Oral 2019-06-22 00:00:00 No 50 Twice A Day [facility] Immunizations Ordered Immunization Name Filled Immunization Name Date Status Comments Source Influenza <Unspecified> 2015-12-27 00:00:00 Completed [facility] Vital Signs Vital Name Observation Time Observation Value Comments Source Heart rate 2019-05-04 16:00:00 65 /min Ryne Thrasher Systolic blood pressure 2019-05-04 15:39:21 118 mm[Hg] Ryne Thrasher Diastolic blood pressure 2019-05-04 15:39:21 66 mm[Hg] Ryne Thrasher Body temperature 2019-05-04 15:39:21 36.11 Saadia Luis Thrasher Oxygen saturation in Arterial blood by Pulse oximetry 05-04 15:39:21 99 /min Ryne Thrasher Respiratory rate 2019-05-04 04:36:33 17 /min Luis Thrasher Body weight 2019-05-02 11:02:48 80.015 kg Ryne Thrasher BMI 2019-05-02 11:02:48 23.92 kg/m2 Ryne Thrasher Body height 2019-04-29 17:28:00 182.9 cm Ryne Thrasher Procedures Procedure Date / Time Performed Performing Clinician Sour e Below knee amputation of right lower extremity 2019-06-18 00 :00:00 SAVANNA MESA [facility] X-ray of chest, two views 2019-06-09 00:00:00 BEBE RAMIREZ [facility] POC GLUCOSE 2019-05-04 14:08:00 Leah Dietz POC GLUCOSE 2019-05-04 08:49:00 Leah Dietz HC COMPLETE BLD COUNT W/AUTO DIFF 2019-05-04 05:10:00 Vik Hi SMEAR REVIEW 2019-05-04 05:10:00 Sebas Hi ethodi POC GLUCOSE 2019-05-03 22:28:00 Leah Dietz POC GLUCOSE 2019-05-03 18:22:00 Leah Dietz CV AORTOGRAM ABDOMINAL AORTA 2019-05-03 17:35:51 Sebas Hi ESTIMATED GFR 2019-05-03 15:30:00 Leah Dietz POC PANEL 2019-05-03 15:30:00 Leah Dietz POC GLUCOSE 2019-05-03 08:34:00 Leah Dietz HC COMPLETE BLD COUNT W/AUTO DIFF 2019-05-03 07:25:00 Kolton Vik shreyaspapito QuiñonezPraful Thrasher BASIC METABOLIC PANEL 2019-05-03 07:25:00 Hansa Lincoln ESTIMATED GFR 2019-05-03 07:25:00 Hansa Lincoln Gnosticism POC GLUCOSE 2019-05-02 21:13:00 Leah Dietz POC GLUCOSE 2019-05-02 18:25:00 Leah Dietz HEMODIALYSIS 2019-05-02 17:51:21 Jose Alejandro Raza Meth odist POC GLUCOSE 2019-05-02 07:21:00 Leah Dietz HC COMPLETE BLD COUNT W/AUTO DIFF 2019-05-02 05:11:00 Farhat Lincoln BASIC METABOLIC PANEL 2019-05-02 05:11:00 Hansa Lincoln ESTIMATED GFR 2019-05-02 05:11:00 Hansa Lincoln Gnosticism POC GLUCOSE 2019-05-01 20:55:00 Leah Dietz POC GLUCOSE 2019-05-01 17:03:00 Leah Dietz POC GLUCOSE 2019-05-01 13:01:00 Leah Dietz Gnosticism POC GLUCOSE 2019-05-01 11:43:00 Leah Dietz US CAROTID DUPLEX BILATERAL 2019-05-01 10:15:00 Angel Lugo Gnosticism POC GLUCOSE 2019-05-01 07:36:00 Leah Dietz BASIC METABOLIC PANEL 2019-05-01 04:00:00 Leah Dietz Gnosticism PHOSPHORUS LEVEL 2019-05-01 04:00:00 Jose Alejandro Raza hodist ESTIMATED GFR 2019-05-01 04:00:00 Leah Dietz POC GLUCOSE 2019-04-30 22:46:00 Leah Dietz POC GLUCOSE 2019-04-30 21:11:00 Leah Dietz POC GLUCOSE 2019-04-30 17:47:00 Leah Dietz POC GLUCOSE 2019-04-30 16:36:00 Leah Dietz HEMODIALYSIS 2019-04-30 14:27:05 Jose Alejandro Raza odemeka POC GLUCOSE 2019-04-30 13:51:00 Leah Dietz POC GLUCOSE 2019-04-30 12:00:00 Leah Dietz POC GLUCOSE 2019-04-30 11:13:00 Leah Dietz POC GLUCOSE 2019-04-30 08:12:00 Leah Dietz BASIC METABOLIC PANEL 2019-04-30 05:00:00 Leah Dietz LIPID PANEL 2019-04-30 05:00:00 Leah Dietz HEMOGLOBIN A1C 2019-04-30 05:00:00 Leah Dietz ESTIMATED GFR 2019-04-30 05:00:00 Leah Dietz LACTIC ACID LEVEL, SEPSIS - NOW AND REPEAT 2X EVERY 3 HOURS 2019-04-30 05:00:00 Leah Dietz URIC ACID LEVEL 2019-04-30 05:00:00 Leah Dietz POC GLUCOSE 2019-04-30 04:21:00 Leah Dietz XR FOOT 3 VW BILATERAL 2019-04-30 02:28:54 Leah Dietz LACTIC ACID LEVEL, SEPSIS - NOW AND REPEAT 2X EVERY 3 HOURS 2019-04-30 00:50:00 Leah Dietz US DUPLEX ARTERIAL LOWER EXTREMITY BILATERAL 2019-04-29 21:3 0:00 Tremayne Calle ANKLE BRACHIAL INDEX 2019-04-29 20:00:00 Tremayne Calle Eric gong Gnosticism ECG 12-LEAD 2019-04-29 18:14:24 Tremayne Calle Wa thodist HC COMPLETE BLD COUNT W/AUTO DIFF 2019-04-29 17:59:00 Meera Calle PROTHROMBIN TIME WITH INR 2019-04-29 17:59:00 Tremayne Calle PARTIAL THROMBOPLASTIN TIME (PTT) 2019-04-29 17:59:00 Meera Calle TYPE AND SCREEN 2019-04-29 17:59:00 Tremayne Calle Wa thodist COMPREHENSIVE METABOLIC PANEL 2019-04-29 17:59:00 Tremayne Calle LACTIC ACID LEVEL, SEPSIS - NOW AND REPEAT 2X EVERY 3 HOURS 2019-04-29 17:59:00 Leah Dietz ESTIMATED GFR 2019-04-29 17:59:00 Tremayne Calle Wa thodist ECG ED PRELIMINARY INTERPRETATION 2019-04-29 17:43:51 Meera Calle POC GLUCOSE 2019-04-24 07:20:00 Minh Bobbyvarelsal Misty Thrasher BASIC METABOLIC PANEL 2019-04-24 06:30:00 Minh Bobby HC COMPLETE BLD COUNT W/AUTO DIFF 2019-04-24 06:30:00 Minh Bobby ESTIMATED GFR 2019-04-24 06:30:00 Minh Bobbyl Misty Thrasher MAGNESIUM LEVEL 2019-04-24 06:30:00 Minh Bobbyvarelsal H clement Thrasher POC GLUCOSE 2019-04-23 21:01:00 Minh Bobbyvarlal H clement Thrasher POC GLUCOSE 2019-04-23 17:48:00 Minh Bobbyvarlal H clement Thrasher POC GLUCOSE 2019-04-23 16:48:00 Minh Bobbyvarelsal H clement Thrasher POC GLUCOSE 2019-04-23 15:46:00 Minh Bobbylal H ouedgardo Gnosticism POC GLUCOSE 2019-04-23 11:22:00 Minh Bobby Natvarlal H ouedgardo Gnosticism HC COMPLETE BLD COUNT W/AUTO DIFF 2019-04-23 08:00:00 Pia Bobbyjohana Michele Gnosticism POC GLUCOSE 2019-04-23 07:22:00 Kunal Bobbyevelia Natvarlal H ouedgardo Gnosticism ECG 12-LEAD 2019-04-23 05:20:58 Angel Lugo Meth odist POC GLUCOSE 2019-04-23 05:10:00 Kunal Bobbyevelia Natvarlal H ouedgardo Gnosticism BASIC METABOLIC PANEL 2019-04-23 04:00:00 Minh Bobby Kan Santanaist MAGNESIUM LEVEL 2019-04-23 04:00:00 Kunal Bobbyevelia Zavalavarlal H clement Gnosticism ESTIMATED GFR 2019-04-23 04:00:00 Kunal Bobbyeveila Natvarlal H clement Gnosticism TROPONIN 2019-04-23 04:00:00 Minh Bobby Natvarlal H ouedgardo Gnosticism POC GLUCOSE 2019-04-23 02:41:00 Kunal Bobbyevelia Natvarlal H ouedgardo Gnosticism POC GLUCOSE 2019-04-22 23:42:00 Minh Bobby Natvarlal H [place] Gnosticism POC GLUCOSE 2019-04-22 23:38:00 Pia Bobbyjohana Natvarlal H clement Gnosticism POC GLUCOSE 2019-04-22 21:18:00 Kunal Bobbyevelia Natvarlal H ouedgardo Gnosticism POC GLUCOSE 2019-04-22 18:17:00 Kunal Bobbyevelia Natvarlal H ouedgardo Gnosticism POC GLUCOSE 2019-04-22 15:49:00 Pia Bobbyjohana Natvarlal H clement Gnosticism CV PCI PERCUTANEOUS CARDIAC ANGIOPLASTY 2019-04-22 15:09:51 Angel Lugo ACTIVATED CLOTTING TIME 2019-04-22 14:42:00 Minh Bobby Gnosticism POC GLUCOSE 2019-04-22 12:25:00 Bobby, Amitkevelia Thrasher HEMODIALYSIS 2019-04-22 12:20:25 Jose Alejandro Raza odemeka POC GLUCOSE 2019-04-22 11:33:00 Minh Bobby Ofelia Thrasher POC GLUCOSE 2019-04-22 09:18:00 Minh Bobby Ninol Misty vaughan Gnosticism POC GLUCOSE 2019-04-22 06:41:00 Kunal Bobbyevelia vaughan Gnosticism ANTI XA, UNFRACTIONATED 2019-04-22 06:40:00 Angel Lugo Gnosticism POC GLUCOSE 2019-04-22 06:19:00 Kunal Bobbyevelia Thrasher POC GLUCOSE 2019-04-22 05:05:00 Minh Bobby Ofelia Thrasher POC GLUCOSE 2019-04-22 02:15:00 James Bobbymilla Thrasher HC COMPLETE BLD COUNT W/AUTO DIFF 2019-04-22 00:00:00 Minh Bobby Ofelia Thrasher COMPREHENSIVE METABOLIC PANEL 2019-04-22 00:00:00 Misael Bobby meera Thrasher TROPONIN 2019-04-22 00:00:00 Minh Bobby Ofelia Thrasher ANTI XA, UNFRACTIONATED 2019-04-22 00:00:00 Angel Lugo ESTIMATED GFR 2019-04-22 00:00:00 Kunal Bobbyevelia Thrasher POC GLUCOSE 2019-04-21 21:10:00 Kunal Bobbyevelia Thrasher PROTHROMBIN TIME WITH INR 2019-04-21 16:00:00 Angel Lugo PARTIAL THROMBOPLASTIN TIME (PTT) 2019-04-21 16:00:00 Angel Lugo ANTI XA, UNFRACTIONATED 2019-04-21 16:00:00 Angel Lugo TROPONIN 2019-04-21 16:00:00 Diamante Minh Thrasher HEPATITIS B SURFACE ANTIGEN 2019-04-21 13:35:00 Jose Alejandro Raza POC GLUCOSE 2019-04-21 12:47:00 Minh Bobby ECG 12-LEAD 2019-04-21 12:32:31 Minh Bobby Gnosticism TROPONIN 2019-04-21 12:31:00 Minh Bobby TTE COMPLETE, WO CONTRAST, W DOPPLER ([id number]) 2019-04-21 10:3 5:47 Minh Bobby TROPONIN 2019-04-21 09:12:00 Minh Bobby POC GLUCOSE 2019-04-21 08:09:00 Minh Bobby HEMODIALYSIS 2019-04-21 07:33:52 Jose Alejandro Raza Meth odist POC GLUCOSE 2019-04-21 06:43:00 Minh Bobby POC GLUCOSE 2019-04-21 05:22:00 Maria R Haney Meth odist TROPONIN 2019-04-21 05:20:00 Al Alexis POC GLUCOSE 2019-04-21 04:50:00 Maria R Haney odemeka ECG ED PRELIMINARY INTERPRETATION 2019-04-21 03:23:33 Wendie Alexis XR CHEST 1 VW PORTABLE 2019-04-21 03:04:58 Al Alexis HC COMPLETE BLD COUNT W/AUTO DIFF 2019-04-21 02:28:00 Wendie Alexis COMPREHENSIVE METABOLIC PANEL 2019-04-21 02:28:00 Al Alexis TROPONIN 2019-04-21 02:28:00 Al Alexis B NATRIURETIC PEPTIDE 2019-04-21 02:28:00 Al Alexis ESTIMATED GFR 2019-04-21 02:28:00 Jimmy Forbes ECG 12-LEAD 2019-04-21 00:34:[address] ANGIOGRAM ABDOMINAL AORTA AND BILATERAL ILIOFEMORAL RUNOFF W WO CONTRAST 2019-04-20 09:54:33 Danny Glover SINGLE ANTIGEN BEADS 2019-01-11 07:10:00 Neo Moya Gnosticism [place] APPLY LOWER LEG SPLINT 2019-01-05 21:09:38 Nikole Esteban Gnosticism [place] RESUPERF WND BODY <2.5CM 2019-01-05 19:58:55 Devan Rhodes PERFORMANCE OF URINARY FILTRATION, <6 HRS/DAY 2019-01-04 00:00:0 0 [facility] EXCISION OF LEFT METATARSAL, OPEN APPROACH 2019-01-01 00:00:00 Robin Macias [facility] TRANSFER LEFT FOOT SKIN, EXTERNAL APPROACH 2019-01-01 00:00:00 Robin MCKAY [facility] DRAINAGE OF L FOOT SUBCU/FASCIA, OPEN APPROACH 2019-01-01 00:00: 00 CHEPE [facility] PERFORMANCE OF URINARY FILTRATION, <6 HRS/DAY 2019-01-01 00:00:0 0 [facility] X-ray of chest, two views 2018-12-31 [facility]FOR[facility] OF URINARY FILTRATION, <6 HRS/DAY 2018-12-30 00:00:0 0 [facility] HLA ALLOGENEIC CROSSMATCH 2018-11-04 16:05:00 Bret Marie HLA ALLOGENEIC CROSSMATCH 2018-11-03 15:03:00 Bret Marie SINGLE ANTIGEN BEADS 2018-10-14 11:28:00 Neo Moya HLA ALLOGENEIC CROSSMATCH 2018-10-03 12:13:00 Neo Moya SINGLE ANTIGEN BEADS 2018-09-07 13:21:00 Neo Moya HLA ALLOGENEIC CROSSMATCH 2018-09-04 19:02:00 Yfn Amezquita [facility] HLA ALLOGENEIC CROSSMATCH 2018-08-28 14:46:00 Neo Moya Michele Gnosticism SINGLE ANTIGEN BEADS 2018-08-10 07:20:00 Neo Moya Gnosticism HLA ALLOGENEIC CROSSMATCH 2018-08-01 16:44:00 YukiRica Yvan belcher [facility] Plan of Care Planned Activity Planned Date Details Comments Source Future Scheduled Test 2019-12-09 00:00:00 IMM Influenza Seas onal Dec to May (>/= 19 yrs) [code = IMM Influenza Seasonal Dec to May (>/= 19 yrs)] [facility] Scheduled Test 2019-10-09 00:00:00 INFLUENZA VACCINE [code = INFLUENZA VACCINE] [facility] Scheduled Test 2007-10-09 00:00:00 Colorectal Cancer Scrn Annual (FIT/FOBT) Age 50 to 75 [code = Colorectal Cancer Scrn Annual (FIT/FOBT) Age 50 to 75] [facility] Scheduled Test 2007-10-09 00:00:00 COLONOSCOPY SCREEN ING [code = COLONOSCOPY SCREENING] [facility] Scheduled Test 2007-10-09 00:00:00 SHINGLES VACCINES (#1) [code = SHINGLES VACCINES (#1)] [facility] Scheduled Test 1967-10-09 00:00:00 DIABETIC FOOT EXAM [code = DIABETIC FOOT EXAM] [facility] Scheduled Test 1967-10-09 00:00:00 URINE MICROALBUMIN [code = URINE MICROALBUMIN] [facility] Scheduled Test 1957 00:00:00 DIABETIC RETINAL E YE EXAM [code = DIABETIC RETINAL EYE EXAM] [facility] Encounters Start Date/Time End Date/Time Encounter Type Admission Type Att[facility] Care Department Encounter ID Source 2019-06-09 17:51:00 2019-06-22 18:07:00 Discharged Inpatient 3 ZONIA BURNETT [facility] [id number] [facility] 2019-05-18 00:00:00 2019-05-18 00:00:00 Outpatient [facility]AY [place] [facility] [id number] [facility] 2019-04-29 00:00:2019-05-04 00:00:00 Inpatient BENJAMIN DIETZ [facility] [id number] [facility] 2019-04-21 00:00:00 2019-04-24 00:00:00 Inpatient MISAEL BOBBY [facility] 060 [id number] [facility] 2019-04-20 00:00:00 2019-04-20 00:00:00 Outpatient [place] [facility] [id number] [facility] 2018-12-29 13:59:00 2019-01-05 07:20:00 Discharged Inpatient 1 ANGELITA ESQUIVEL [facility] [id number] [facility] 2019-01-05 00:00:00 2019-01-05 00:00:00 Emergency DEVAN RHODES [place] [address] [id number] [facility] 2018-11-12 00:00:00 2018-11-12 00:00:00 Emergency LORENA ADEN [place] [id number] [facility] Results Test Description Test Time Test Comments Results Result Comments Source Bedside Glucose 2019-06-22 08:02:00 Test Item Bedside Glucose (test code = 21178-3) 118 70-120 Meter ID: [id number] 2019-06-22 05:59:00* Test Item Value Reference Range Interpretation Comments White Blood Count (test code = 6690-2) 13.15 4.8-10.8 [facility] Blood Kfrvp7778-80-78 05:59:00* Test Item Value Reference Range Interpretation Comments Red Blood Count (test code = 789-8) 2.98 4.3-5.7 [facility] CenterHemoglobin2020-04-14 05:59:00* Test Item Value Reference Range Interpretation Comments Hemoglobin (test code = 19626-5) 8.8 14.0-18.0 [facility] CenterHematocrit2020-04-14 05:59:00* Test Item Value Reference Range Interpretation Comments Hematocrit (test code = 4544-3) 27.8 38.2-49.6 [facility] CenterMean Corpuscular Zzdmvd2734-19-04 05:59:00* Test Item Value Reference Range Interpretation Comments Mean Corpuscular Volume (test code = 787-2) 93.3 81-99 [facility] CenterMean Corpuscular Ihnjixmyhi4912-13-94 05:59:00* Test Item Value Reference Range Interpretation Comments Mean Corpuscular Hemoglobin (test code = 785-6) 29.5 28-32 [facility] CenterMean Corpuscular Hemoglobin Concent 2019-06-22 05:59:00* Test Item Value Reference Range Interpretation Comments Mean Corpuscular Hemoglobin Concent (test code = 786-4) 31.7 31-35 [facility] CenterRed Cell Distribution Iffbs7363-29-21 05:59:00* Test Item Value Reference Range Interpretation Comments Red Cell Distribution Width (test code = 82306-1) 15.0 11.7 -14.4 [facility] CenterPlatelet Ouuqd0470-36-37 05:59:00* Test Item Value Reference Range Interpretation Comments Platelet Count (test code = 777-3) 263 140-360 [facility] CenterNeutrophils (%) (Auto)2019-06-22 05:59:00 * Test Item Value Reference Range Interpretation Comments Neutrophils (%) (Auto) (test code = 72617-8) 73.9 38.7-80.0 [facility] CenterLymphocytes (%) (Auto)2019-06-22 05:59:00 * Test Item Value Reference Range Interpretation Comments Lymphocytes (%) (Auto) (test code = 736-9) 7.8 18.0-39.1 [facility] CenterMonocytes (%) (Auto)2019-06-22 05:59:00* Test Item Value Reference Range Interpretation Comments Monocytes (%) (Auto) (test code = 5905-5) 9.0 4.4-11.3 [facility] CenterEosinophils (%) (Auto)2019-06-22 05:59:00 * Test Item Value Reference Range Interpretation Comments Eosinophils (%) (Auto) (test code = 713-8) 8.3 0.0-6.0 [facility] CenterBasophils (%) (Auto)2019-06-22 05:59:00* Test Item Value Reference Range Interpretation Comments Basophils (%) (Auto) (test code = 706-2) 0.5 0.0-1.0 [facility] CenterIM GRANULOCYTES %2019-06-22 05:59:00* Test Item Value Reference Range Interpretation Comments IM GRANULOCYTES % (test code = IM GRANULOCYTES %) 0.5 0.0- 1.0 [facility] CenterNeutrophils # (Auto)2019-06-22 05:59:00* Test Item Value Reference Range Interpretation Comments Neutrophils # (Auto) (test code = 751-8) 9.7 2.1-6.9 [facility] CenterLymphocytes # (Auto)2019-06-22 05:59:00* Test Item Value Reference Range Interpretation Comments Lymphocytes # (Auto) (test code = 76037-0) 1.0 1.0-3.2 [facility] CenterMonocytes # (Auto)2019-06-22 05:59:00* Test Item Value Reference Range Interpretation Comments Monocytes # (Auto) (test code = 742-7) 1.2 0.2-0.8 [facility] CenterEosinophils # (Auto)2019-06-22 05:59:00* Test Item Value Reference Range Interpretation Comments Eosinophils # (Auto) (test code = 711-2) 1.1 0.0-0.4 [facility] CenterBasophils # (Auto)2019-06-22 05:59:00* Test Item Value Reference Range Interpretation Comments Basophils # (Auto) (test code = 704-7) 0.1 0.0-0.1 [facility] CenterAbsolute Immature Granulocyte (auto 2019-06-22 05:59:00* Test Item Value Reference Range Interpretation Comments Absolute Immature Granulocyte (auto (jo ann t code = Absolute Immature Granulocyte (auto) 0.07 0-0.[address] [facility] Hospitalodium Pippq8423-58-40 05:58:00* Test Item Value Reference Range Interpretation Comments Sodium Level (test code = 2951-2) 136 136-145 [facility] CenterPotassium Avtrz1763-97-39 05:58:00* Test Item Value Reference Range Interpretation Comments Potassium Level (test code = 2823-3) 3.8 3.5-5.1 [facility] CenterChloride Fzaea4730-03-34 05:58:00* Test Item Value Reference Range Interpretation Comments Chloride Level (test code = 2075-0) 98 98-107 [facility] CenterCarbon Dioxide Ctaeg9506-09-53 05:58:00* Test Item Value Reference Range Interpretation Comments Carbon Dioxide Level (test code = 2028-9) 27 22-29 [facility] CenterAnion Byn9078-23-80 05:58:00* Test Item Value Reference Range Interpretation Comments Anion Gap (test code = 94736-8) 14.8 8-16 [facility] CenterBlood Urea Lrwemrbd3424-08-89 05:58:00* Test Item Value Reference Range Interpretation Comments Blood Urea Nitrogen (test code = 3094-0) 26 7-26 [facility] CenterCreatinine2020-04-14 05:58:00* Test Item Value Reference Range Interpretation Comments Creatinine (test code = 2160-0) 6.43 0.72-1.25 [facility] CenterBUN/Creatinine Fpupi4378-32-04 05:58:00* Test Item Value Reference Range Interpretation Comments BUN/Creatinine Ratio (test code = 3097-3) 4 6-25 [facility] CenterEstimat Glomerular Filtration Rate 2019-06-22 05:58:00* Test Item Value Reference Range Interpretation Comments Estimat Glomerular Filtration Rate (test code = 055294859) 11 >60 Ranges were taken from the National Kidney Disease Education Program and the [facility] Kid[facility] Foundation literature.Reference ranges:60 or greater: Nosqhx70-81 ( for 3 consecutive months): Chronic kidney disease 15 or less: Kidney failureMethodist Charlton Medical CenterGlucose Lxzhw8552-15-96 05:58:00* Test Item Value Reference Range Interpretation Comments Glucose Level (test code = RFD2568) 55 74-118 Results repeated and called to BERNARD WELSH RN at 0556 on 06/22/19 by Prachi minor. Read back and verified.[facility] CenterCalcium Level 2019-06-22 05:58:00* Test Item Value Reference Range Interpretation Comments Calcium Level (test code = 25621-6) 7.3 8.4-10.[address] [facility] Hospitaltool Occult Gyeou0594-60-58 12:30:00* Test Item Value Reference Range Interpretation Comments Stool Occult Blood (test code = 2335-8) POSITIVE NEGATIVE [facility] CenterAlkaline Rcnyvhmmiqb4556-64-55 07:28:00* Test Item Value Reference Range Interpretation Comments Alkaline Phosphatase (test code = 6768-6) 83 40-150 [facility] CenterTotal Buwnlpcxx3346-41-09 07:27:00* Test Item Value Reference Range Interpretation Comments Total Bilirubin (test code = 1975-2) 0.4 0.2-1.2 [facility] CenterAspartate Amino Transf (AST/SGOT) 2019-06-18 07:27:00* Test Item Value Reference Range Interpretation Comments Aspartate Amino Transf (AST/SGOT) (test code = Aspartate Amino Transf (AST/SGOT)) 24 5-34 [facility] CenterAlanine Aminotransferase (ALT/SGPT) 2019-06-18 07:27:00* Test Item Value Reference Range Interpretation Comments Alanine Aminotransferase (ALT/SGPT) (test code = 1742-6) 7 0-55 [facility] CenterTotal Wzvptxf0153-33-27 07:27:00* Test Item Value Reference Range Interpretation Comments Total Protein (test code = 2885-2) 6.4 6.5-8.1 [facility] CenterAlbumin2020-04-10 07:27:00* Test Item Value Reference Range Interpretation Comments Albumin (test code = 1751-7) 1.7 3.5-5.0 [facility] CenterGlobulin2020-04-10 07:27:00* Test Item Value Reference Range Interpretation Comments Globulin (test code = 48653-7) 4.7 2.3-3.5 [facility] CenterAlbumin/Globulin Qvfem7318-09-47 07:27:00 * Test Item Value Reference Range Interpretation Comments Albumin/Globulin Ratio (test code = 1759-0) 0.4 0.8-2.0 [facility] CenterPhosphorus Ykhgw8052-69-68 06:32:00* Test Item Value Reference Range Interpretation Comments Phosphorus Level (test code = WUP9647) 2.8 2.3-4.7 [facility] CenterMagnesium Rauvc8922-88-64 06:24:00* Test Item Value Reference Range Interpretation Comments Magnesium Level (test code = 27690-6) 1.9 1.3-2.1 [facility] CenterHepatitis B Surface Eadzylh7169-10-71 08:02:00* Test Item Value Reference Range Interpretation Comments Hepatitis B Surface Antigen (test code = 5196-1) Negative Negat xin Performed at: [facility] [id number] Director: Travon Christensen MD, Phone: [phone] Charlton Medical CenterDifferential Total Cells Lhkrudi9175-83-27 07:37:00* Test Item Value Reference Range Interpretation Comments Differential Total Cells Counted (test code = Differbo tial Total Cells Counted) 100 [facility] CenterNeutrophils % (Manual)2019-06-14 07:37:00 * Test Item Value Reference Range Interpretation Comments Neutrophils % (Manual) (test code = 71368-2) 88 40-74 [facility] CenterLymphocytes % (Manual)2019-06-14 07:37:00 * Test Item Value Reference Range Interpretation Comments Lymphocytes % (Manual) (test code = 737-7) 7 19-48 [facility] CenterMonocytes % (Manual)2019-06-14 07:37:00* Test Item Value Reference Range Interpretation Comments Monocytes % (Manual) (test code = 744-3) 5 3.4-9.0 [facility] CenterPlatelet Qpdvsxnt3051-50-42 07:37:00* Test Item Value Reference Range Interpretation Comments Platelet Estimate (test code = 80318-4) ADEQUATE [facility] CenterPlatelet Morphology Zbgvhdz1816-31-57 07:37:00* Test Item Value Reference Range Interpretation Comments Platelet Morphology Comment (test code = 10255-3) NORMAL [facility] CenterRed Cell Morphology Raxnxiy2856-99-40 07:37:00* Test Item Value Reference Range Interpretation Comments Red Cell Morphology Comment (test code = 6742-1) NORMAL [facility] CenterFOOT RIGHT AP UHQ6782-91-93 20:03:00 [facility] [address] [place] [address] Patient Name: DUONG HERNANDEZ MR #: [id number] : 1955 Age/Sex: 63/M Req #: [id number] Adm Physician: ZONIA BURNETT MD Ordered by: SAVANNA MO DPM Report #: [id number] Location: [facility]URG Room/Bed: [facility] Procedure: [id number] DX/ FOOT RIGHT AP LAT Exam Date: 06/11/19 Exam Time: 1 922 REPORT STATUS: Signed FOOT R IGHT AP LAT - Multiple views HISTORY: s/p SURGERY [id number] Y COMPARISON: Multiple prior foot x-ray examinations most recent da phu 06/09/2019. FINDINGS: Status post amputation at the level of first through fifth metatarsophalangeal joints with overlying dressing material see n. There are faint lucencies seen at the tip of fourth through fifth metatarsa l which could be artifact secondary to overlying dressing material or osteomye litis. Degenerative changes are seen in the remaining of the joints. IMP RESSION: 1. Status post amputation at the level of first through fifth metatarsophalangeal joints. 2. Faint lucencies seen at the tip of fourth t hrough fifth metatarsal which could be artifact secondary to overlying dressin g material or osteomyelitis. Signed by: Ry Mora MD on 06/11/2019 8 :13 PM Dictated By: RY MORA MD 12 Transcribed By: FELECIA on 06/11/192012 COPY TO: SAVANNA MO DPM Prothrombin Mbzh8964-91-18 17:35:00* Test Item Value Reference Range Interpretation Comments Prothrombin Time (test code = 5902-2) 14.4 11.9-14.5 [facility] CenterProthromb Time International Ratio 2019-06-11 17:35:00* Test Item Value Reference Range Interpretation Comments Prothromb Time International Ratio (test code = 6301-6) 1.05 Oral Anticoagulant Therapy INR Values:1. Low Intensity Therapy 1.5 - 2.02 . Moderate Intensity Therapy 2.0 - 3.03. High Intensity Therapy(1) 2.5 - 3. 54. High Intensity Therapy(2) 3.0 - 4.05. Panic Value INR > 5.0 [facility] CenterHes[facility] B Surface Antibody, Quant 2019-06-11 07:51:00* Test Item Value Reference Range Interpretation Comments Hepatitis B Surface Antibody, Quant (test code = 5194-6) 967.7 Immunity>9.9 Status of Immunity Anti-HBs Level Inconsistent with Immunity 0.0 - 9.9Consistent with Immunity >9.9[facility] Be Cxiwmjd0183-59-85 07:51:00* Test Item Value Reference Range Interpretation Comments Hepatitis Be Antigen (test code = 56976-5) Negative Negative [facility] B Core Total Iuluopur9222-62-42 07:51:00* Test Item Value Reference Range Interpretation Comments Hepatitis B Core Total Antibody (test code = 56617-9) Negative Negative Performed at: [place] [id number] Director: Travon Christensen MD, Phone: [phone] [facility]ton Medical CenterC-Reactive Cntrvqa3070-99-24 06:16:00* Test Item Value Reference Range Interpretation Comments C-Reactive Protein (test code = 1988-5) 345 0-10 Performed at: [facility] [address] [place], [place] [id number] Director: Travon Christensen MD, Phone: [phone] Charlton Medical CenterThyroid Stimulating Hormone (TSH)2019-06-10 06:12:00* Test Item Value Reference Range Interpretation Comments Thyroid Stimulating Hormone (TSH) (test code = 01687-0) 6.111 0.350-4.940 [facility] CenterErythrocyte Sedimentation Wpxj6570-54-42 05:56:00* Test Item Value Reference Range Interpretation Comments Erythrocyte Sedimentation Rate (test code = 4537-7) 124 0- 13 [facility] CenterTriglycerides Vyeqw1968-12-55 05:51:00* Test Item Value Reference Range Interpretation Comments Triglycerides Level (test code = 2571-8) 99 0-149 [facility] CenterCholesterol Ltmef4563-00-11 05:51:00* Test Item Value Reference Range Interpretation Comments Cholesterol Level (test code = 2093-3) 96 0-199 Less than 200 mg/dL Low Wbsz884 - 239 mg/dL Borderline Kwjn799 m g/dl and greater High Risk [facility] CenterLDL Kxannhxbfvx1829-06-60 05:51:00* Test Item Value Reference Range Interpretation Comments LDL Cholesterol (test code = 2089-1) 55 60-130 [facility] CenterHDL Xnftzuxpxuu1760-45-74 05:51:00* Test Item Value Reference Range Interpretation Comments HDL Cholesterol (test code = 2085-9) 21 40-60 [facility] CenterCholesterol/HDL Spsfu7911-08-81 05:51:00 * Test Item Value Reference Range Interpretation Comments Cholesterol/HDL Ratio (test code = 9830-1) 4.6 3.9-4.7 [facility] CenterHemoglobin A1c Xzuairp0963-75-42 05:41:00 * Test Item Value Reference Range Interpretation Comments Hemoglobin A1c Percent (test code = Hemoglobin A1c Percent) 8.3 4.0-7.0 [facility] CenterActivated Partial Thromboplast Time 2019-06-10 05:40:00* Test Item Value Reference Range Interpretation Comments Activated Partial Thromboplast Time (test code = 93221-9) 39.6 23.8-35.5 [facility] CenterCHEST 2 YTGFH3288-26-25 22:51:00 [facility] [address] [place] [address] Patient Name: DUONG HERNANDEZ MR #: [id number] : 1955 Age/Sex: 63/M Req #: [id number] Adm Physician: ZONIA BURNETT MD Ordered by: BEBE RAMIREZ CONFLICTS ANALYST Report #: [id number] Location: [facility]/SURG Room/Bed: [facility] Procedure: [id number] D X/CHEST 2 VIEWS Exam Date: 06/09/19 Exam Time: 2199 REPORT STATUS: Signed EXAMINATIO N: CHEST 2 VIEWS INDICATION: Bilateral foot wounds Cardiology doyle tay for possible surgery on [id number] Y COMPARISON: Chest x-ray 12/31/2018 FINDINGS: PA and lateral views TUBES and LINES: Expandable stent has been deployed in the region of the right subclavi an vein/proximal SVC. There is an expandable stent in the upper right arm, par tially visualized. LUNGS: Lungs are well inflated. There is no evidence o f pneumonia or pulmonary edema. PLEURA: No pleural effusion or pneumotho rax. HEART AND MEDIASTINUM: The heart is normal in size. The thoracic aort a is mildly tortuous. BONES AND SOFT TISSUES: No focal osseous lesions . Surgical clips in the lower left neck are stable. Fracture sternotomy wire s are stable. Partially visualized fusion plate in the lower cervical spine is intact. UPPER ABDOMEN: Unremarkable. IMPRESSION: No acute thoracic abnormality. Signed by: Dr. Adán Neri MD on 06/09/2019 10:54 PM Dictated By: ADÁN NERI MD 53 Transcribed By: FELECIA on 06/09/192253 CO PY TO: BEBE RAMIREZ CONFLICTS ANALYST FOOT RIGHT IZMCEAMX8375-66-34 22:45:00 [place] [address] Patient Name: DUONG HERNANDEZ MR #: [id number] : 1955 Age/Sex: 63/M Req #: [id number] Adm Physician: ZONIA BURNETT MD Ordered by: SAVANNA MO DPHam Report #: [id number] Location: MED/SURG2 Room/Bed: [facility] Procedure: [id number] DX/ FOOT RIGHT COMPLETE Exam Date: 06/09/19 Exam Time: 2 200 REPORT STATUS: Signed Foot c omplete CPT code: 17626 Indication: Wound at bottom of foot with drain age ABSCESS, GANGRENE [id number] Technique: A.P., oblique and lateral views of the right foot obtained. Comparison: None Findings: Extensive subcutaneous emphysema throughout the great toe and forefoot surro unding the second and third proximal phalanges and metatarsals. Calcaneus i s intact and normal in morphology. The midfoot is intact. No evidence of dis placed fracture or dislocation involving any of the digits. No periosteal new bone formation is appreciated. Focal demineralization of digits 1 and 2, if p resent, is difficult to visualize given the presence of subcutaneous emphysema . There is demineralization of the MTPs of digits 3 and 4 without periosteal n ew bone formation. No radiopaque foreign bodies in the soft tissues. Exten sive vascular calcifications of the ankle and foot. There is diffuse soft tiss ue swelling of the ankle. IMPRESSION: 1. Subcutaneous emphysema of the forefoot, particularly surrounding the great toe. No gross radiographic e vidence of osteomyelitis of digits 1 and 2. MRI is a more sensitive modality to identify small foci of osteomyelitis. 2. 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 Sign ed by: Dr. Adán Neri MD on 06/09/2019 10:51 PM Dictated By: RACHAEL NERI MD 50 Transcribed By: FELECIA on 06/09/192250 COPY TO: SAVANNA MO DPM FOOT LEFT EJSFIDKW1126-40-84 22:40:00 [place] [address] Patient Name: DUONG HERNANDEZ MR #: [id number] : 1955 Age/Sex: 63/M Req #: [id number] Adm Physician: ZONIA BURNETT MD Ordered by: SAVANNA MO DPM Report #: [id number] Location: MED/SURG2 Room/Bed: [facility] Procedure: [id number] DX/ FOOT LEFT COMPLETE Exam Date: 06/09/19 Exam Time: 22 00 REPORT STATUS: Signed Foot co mplete CPT code: 47989 Indication: Left foot wound with drainage A BSCESS, GANGRENE [id number] Technique: A.P., oblique and lateral v iews of the left foot obtained. Comparison: Foot x-rays 12/29/2018 Tony jackman: The area of wound was not indicated or marked. Amputation of the g reat toe has been performed. Osteotomy margin is at the diaphysis of the proxi mal phalanx. The osteotomy margin is sharp. No skin ulceration. Calcaneus is intact and normal in morphology. The midfoot is intact. No evidence of d isplaced fracture or dislocation involving any of the digits. Soft tissue swe lling of the second and third digits. The distal tuft of the second digit is s omewhat irregular on the oblique image. The distal tuft of the third digit is well corticated. Digits 4 and 5 are normal in appearance. Diffuse vascular calcifications. No radiopaque foreign bodies. IMPRESSION: 1. Status post partial amputation of the great toe. 2. Cortical irregularity of the distal tuft of the second digit with soft tissue swelling. Please correlate w ith area of ulceration. Osteomyelitis cannot be excluded. Signed by: Dr. Adán Neri MD on 06/09/2019 10:45 PM Dictated By: ADÁN NERI MD 44 Transcribed By: FELECIA on 06/09/192244 COPY TO: SAVANNA MO DPM POC glucose 2019-05-04 14:11:24* Test Item Value Reference Range Interpretation Comments POC glucose (test code = 70147-6) 294 mg/dL 65-99 H Film Processing Utility Worker Name: Tyron Núñez ID: [id number]: [facility] Notified torch straightener and heater Interpretation (test code = 52645-2) Abnormal Benge Methodemeka invasive peripheral vascular vbgihffcr9830-94-25 09:14:15 BALL TRUING MACHINE OPERATOR:None.PREOPERATIVE DIAGNOSES:1. Occlusion and/or stenosis of art eries of the lower extremities with restingpain.2. Critical limb ischemia.POSTO PERATIVE DIAGNOSES:1. Occlusion and/or stenosis of arteries of the lower extrem ities with restingpain.2. Critical limb ischemia.ANESTHESIA:Conscious sedation with Versed and fentanyl.TITLE OF OPERATION:Bilateral selective femoral angiogra ms with runoff studies via the left femoralartery.ESTIMATED BLOOD LOSS:20 mLCOMP LICATIONS:None.OPERATIVE COURSE:After informed consent was obtained from the pat ient and with appropriatetime-out procedure called, the patient was placed on th e cardiac catheterizationtable. Both groins were cleaned and prepared in the us ual fashion, but the leftgroin had been predetermined for access. The appropria te anatomic landmarkswere identified under fluoroscopy. He received Versed and fentanyl forconscious sedation and was continuously monitored by myself and the circulatingnurse including end-tidal CO2, oxygenation, blood pressure, heart rat e, andrespiration. He tolerated the anesthetic portion nicely. The left femora l areawas then infused with 1% Xylocaine without epinephrine and the artery ente redwithout difficulty using a standard 18-gauge AMC needle. A short 5-Frenchart erial sheath was utilized for access. Next, using a 4-Fijian Contra catheterand a 0.035 Paul exchange wire, the right iliac artery was selectively enteredand the wire advanced to the mid superficial femoral artery. The Contracatheter was then removed without doing an abdominal aortogram (please see CTangiogram prev iously described). A multipurpose catheter was then advanced overthe wire to th e distal aspect of the right common femoral artery. The initialangiograms were taken in the left anterior oblique angulation with a selectiveimaging done from the common femoral to the foot. The first 3 images were donein the anterior obl ique position while the final images were done in the APprojection. Following t his, the catheter was withdrawn and similar images weretaken of the left femoral system with runoff to the foot. We did not utilize aspecific catheter other th an the 5-Fijian sheath for this. All studies weredone under subtraction imaging . Once completed, the angiograms were carefullyreviewed. On the right side, th ere is mild calcific nonocclusive plaquing inthe mid and distal common femoral a rtery. The profunda femoris has a focal 60%stenosis in the proximal aspect of t he vessel. The entire right superficialfemoral artery is calcified without sign ificant focal stenosis. In thepopliteal artery above the knee space, there is a focal 40% to 50% stenosis,which is not flow limiting. Below the knee, there is total occlusion of theanterior tibial, peroneal and posterior tibial arteries, all of the posteriortibial occludes well distal to the takeoff from the common p eroneal trunk. There are weak collaterals to the distal anterior tibial, but vi rtually norunoff into the foot. On the left side, the common femoral artery is calcified,but without disease. There is an 80% focal stenosis in the profunda f emorisartery. The entire superficial femoral artery is also diffusely calcified , butwithout focal stenosis. There is, however, a focal 60% stenosis in thepopl iteal artery above the joint space. Below the knee, all 3 vessels are alsoocclu ded including the anterior tibial, peroneal and posterior tibial artery. There a re weak collaterals from the anterior tibial, which fill the peronealartery, but not the posterior tibial. There appeared to be minimal collateralrunoff into t he foot on the left side. As a result, the procedure wasterminated. The patien t was taken off the catheterization table and the sheathwill be removed. He diogo l be transported back to the patient's room once bedrestis completed.In my opini on, the patient is not a candidate for endovascular or surgicalrevascularization . Due to his ongoing pain, he will likely hwczzgiqtyxr-jeq-rvws amputation as t here is sufficient flow to facilitate woundhealing. I have already communicated this to the patient's attendingcardiologist, Dr. Angel Lugo.[facility] with platelet and derwknbuufxb6325-83-56 07:45:51* Test Item Value Reference Range Interpretation Comments WBC (test code = 21728-3) 7.48 4.50- 11.00 k/uL RBC (test code = 22386-7) 3.07 m/uL 4.4-6 L HGB (test code = 718-7) 9.0 g/dL 14-18 L HCT (test code = 4544-3) 29.1 % 41-51 L MCV (test code = 787-2) 94.8 fL 82-100 MCH (test code = 785-6) 29.3 pg 27-34 MCHC (test code = 786-4) 30.9 g/dL 31-37 L RDW - SD (test code = 90799-2) 47.1 fL 37-55 MPV (test code = 31064-1) 11.7 fL 8.8-13.2 Platelet count (test code = 65789-0) 172 150- 400 k/uL Nucleated RBC (test code = 79211-9) 0.00 /100 WBC Neutrophils (test code = 33693-2) 73.8 % 39-69 H Lymphocytes (test code = 95543-1) 11.8 % 25-45 L Monocytes (test code = 92678-1) 9.0 % 0-10 Eosinophils (test code = 25978-2) 4.4 % 0-5 Basophils (test code = 56853-0) 0.5 % 0-1 Immature granulocytes (test code = 43402-9) 0.5 % 0-1 "Immature granulocytes" (promyelocytes, myelocytes, metamyelocytes) Lab Interpretation (test code = 66175-4) Abnormal Benge MethodistSmear [id number] 07:45:51* Test Item Value Reference Range Interpretation Comments Platelet slide review (test code = 23907-1) Gary adequate Anisocytosis (test code = 702-1) Moderate Polychromasia (test code = 88356-6) Moderate Ovalocytes (test code = 774-0) Moderate Enlarged platelets (test code = 90004-4) Moderate A Giant platelets (test code = 5908-9) Occasional Lab Interpretation (test code = 47563-3) Abnormal Benge MethodistPOC dgvyp5293-72-35 15:33:31* Test Item Value Reference Range Interpretation Comments POC sodium (test code = 2947-0) 138 mmol/L 135-148 POC potassium (test code = 6298-4) 4.1 mmol/L 3.5-5 POC chloride (test code = 2069-3) 96 mmol/L 99-109 L POC CO2 (test code = 36057-2) 31 mmol/L 24-31 POC glucose (test code = 2339-0) 182 mg/dL 65-99 H POC BUN (test code = 6299-2) 21 mg/dL 8-24 POC creatinine (test code = 31037-4) 6.5 mg/dl 0.7-1.2 H POC hematocrit (test code = 4544-3) 31 % 41-51 L POC anion gap (test code = 3897675) 16 mmol/L 8-20 Film Processing Utility Worker Name: Surya Junior CDevice ID: [id number] Lab Interpretation (test code = 75276-1) Abnormal Benge MethodistEstimated [id number] 15:33:31* Test Item Value Reference Range Interpretation Comments Estimated GFR (test code = 69514-3) 10 mL/min/1.73 m2 A Catergory Units InterpretationG1 >=90 Normal or highG2 60-89 Mildly ymioycorrZ7o 45-59 Mildly to moderately dcomuprezR7e 30-44 Moderately to severely decreasedG4 15-29 Severely decreasedG5 <15 Kidney failureThe eGFR was calculated using the Chronic Kidney Disease Epidemiology Collaboration (CKD-EPI) equation. Interpretation is based on recommendations of the National Kidney Foundation-Kidney Disease Outcomes Quality Initiative (NKF-KDOQI) published in 2014. Lab Interpretation (test code = 15608-1) Abnormal Benge MethodistBasic metabolic dkslq4633-57-38 09:21:37* Test Item Value Reference Range Interpretation Comments Sodium (test code = 2951-2) 138 135- 148 mEq/L Potassium (test code = 2823-3) 5.1 3.5- 5.0 mEq/L H Chloride (test code = 2075-0) 96 98- 112 mEq/L L CO2 (test code = 2028-9) 23 24- 31 mEq/L L Anion gap (test code = 47142-6) 19@ANIO 7- 15 mEq/L H BUN (test code = 3094-0) 53 mg/dL 8-23 H Creatinine (test code = 2160-0) 11.08 mg/dL 0.7-1.2 H Glucose (test code = 2345-7) 228 mg/dL 65-99 H Calcium (test code = 42824-9) 8.4 mg/dL 8.8-10.2 L Lab Interpretation (test code = 89582-1) Abnormal Benge MethodistUs carotid ekspot0833-25-16 16:30:00Interface, Radiology Results In - 05/01/2019 4:30 PM [facility] Vascular Ultrasound Laboratory Carotid Artery Duplex Report [id number] [address] For quality control inspector heading purposes, the categorization of the degree of the stenosis of this exam is based on criteria described in the IAC carotid stenosis grading white paper( www.intersocietal.org/Vascular) and Kimberly Nascimento., Angelia Baum., et al. Carotid artery stenosis: christensen-scale and Doppler US diagnosis--Society of Radiologists in Ultrasound Consensus C onference. Radiology. 2003 Nov; 229(2):340-6. Pat.Name: DUONG HERNANDEZ.ID: [id number] .Date: 05/01/2019 Refer.MD: STACEY LUGO MD Exam Time: 9:25:00 AM Study Type:Carotid Height: 72in Weight: 186lb BSA: 2.07 m2 Age: 8 1955,63Y Sex: MALE Sonogrphr: Charleen Pathak RVT Pat. Stat.:Inpatient Room: [address] Tape Vol: RF, CPT - 4: 76609 Echo Event ID:[id number] Order ID: [id number] Reason for Study:Evaluate for possible carotid artery d isease. Historyof ESRD on HD, DM, PAD, HTN. Procedures: Colorflow, Grayscale/2D, Power Doppler ImagingRace: B SUMMARY: PHYSICAL ASSESSMENT B lood Pressure Right AVF Left 125/65 CAROTID ARTERY SCAN RIGHT: There is smooth intimal lining of the common carotid artery.There is calc ified plaque noted in the bulb extending into theexternal carotid and internal c arotid artery. Colorflow is normal. LEFT: There is smooth intimal lining of the common carotid artery.There is hard and calcified plaque noted in the bulb exten ding intothe internal carotid artery and external carotid artery. Colorflow isno rmal. PRELIMINARY FINDINGS1. <50% stenosis of the bulb and internal carotis artery, bilaterally.2. <50% stenosis of the external carotid artery, bilaterally.PHYSICIAN INTERPRETATION Bilateral carotid duplex examination demonstrated atheroscleroticplaques in the bulbs. Less than 50% stenosis in the bulb and internal carotid artery,bilaterally.Both vertebral arteries are antegrade. Right UE AVF. FINDINGS: Carotid Findings: Right Left Verteb.Flw Antegrade Antegrade Subclavian Disturbed Biphasic MEASUREMENTS:------- DOPPLERRight CCA Di st CCA Dist PSV 65.9 cm/s CCA Dist EDV 11.5 cm/sRight CCA Mid CCA Mid PSV 84.5 cm/s CCA Mid EDV 15.6 cm/sRight CCA Prox CCA Prox PSV 134 cm/s CCA Prox EDV 21.5 cm/sRight ECA Prox ECA P kailey PSV 91.8 cm/s ECA Prox EDV 0 cm/sRight ICA Dist ICA Dist PSV 49 cm/s ICA Dist EDV 18 cm/sRight ICA Mid ICA Mid PSV 99.5 cm/s ICA Mid EDV 30.9 cm/sRight ICA Prox ICA Prox PSV 89.2 cm/s ICA Prox EDV 28.3 cm/sRight Vertebral Vertebral PSV 49 cm/s Vertebral EDV 12.8 cm/sLeft CCA Dist CCA Dist PSV 78.5 cm/s CCA Dist EDV 15.5 cm/sLeft CCA Mid CCA Mid PSV 94.3 cm/s CCA Mid EDV 21.5 cm/sLeft CCA Prox CCA Prox PSV 102 cm/s CCA Prox EDV 15.6 cm/sLeft ECA Prox ECA Prox PSV 70.7 cm/s ECA Prox EDV 0 cm/sLeft ICA Dist ICA Dist PSV 82 cm/s ICA Dist EDV 22 cm/sLeft ICA Mid ICA Mid PSV 92 cm/s ICA Mid EDV 34.2 cm/sLeft ICA Prox ICA Prox PSV 94.5 cm/s ICA Prox EDV 22.1 cm/sLeft Vertebral Vertebral PSV 46.5 cm/s Vertebral EDV 14.1 cm/sRight ICA/CCA Ratio ICA/CCA PSV 1.06 Left ICA/CCA R atio ICA/CCA PSV 1 Signed 05/01/2019 04:30 PMZsolt Brooke damon MD, RPVIBenge MethodistECG 12 [id number] 16:22:07* Test Item Value Reference Range Interpretation Comments Ventricular rate (test code = 253) 66 Atrial rate (test code = 255) 66 OH interval (test code = 266) 184 QRSD interval (test code = 260) 142 QT interval (test code = 264) 488 QTC interval (test code = 265) 511 P axis 1 (test code = 267) 73 QRS axis 1 (test code = 268) -43 T wave axis (test code = 270) -12 EKG impression (test code = 273) Normal sinus rhythm-P ossible Left atrial enlargement-Left axis deviation-Right bundle branch block-Septal infarct , age undetermined-Abnormal ECG-In automated comparison with ECG of 23-APR-2019 05:20 ,-Septal infarct is now present-Inverted T waves have replaced nonspecific T wave abnormality in Anterior leads- Ryne MethodistPhosphorus yvzgl3260-87-32 07:59:06* Test Item Value Reference Range Interpretation Comments Phosphorus (test code = 2777-1) 3.8 mg/dL 2.4-4.5 Michele MethodistHemoglobin [id number] 08:11:29* Test Item Value Reference Range Interpretation Comments Hemoglobin A1C (test code = 29777-6) 8.4 % 4-5.6 H HbA1c cutoffs for diagnosing diabetes:4.0% - 5.6% = normal5.7% - 6.4% = increased risk for diabetes (prediabetes)9>=6.5% = ovkoovhw0Mjovj for glycemic control (ADA 2016)< 7.0% Target for non adults with diabetes. More or less stringent targets may be appropriate for individual patients. <7.5% Target for Children and adolescents with type 1 diabetes. Lab Interpretation (test code = 07357-8) Abnormal Michele MethodistLipid bhrxr3615-86-35 07:46:25* Test Item Value Reference Range Interpretation Comments Cholesterol (test code = 2093-3) 154 mg/dL <200 Triglycerides (test code = 2571-8) 130 mg/dL <150 HDL cholesterol (test code = 2085-9) 40 mg/dL >40 LDL cholesterol (test code = 2089-1) 91 mg/dL <100 Result obtained by direct LDL measurement Lipid panel interpretation (test code = 76792-9) SeeBelow Total Cholesterol (mg/dL) <200 Desirable 200-239 Borderline-high >=240 High Triglycerides (mg/dL) <150 Normal 150-199 Borderline-high 200-499 High >=500 Very high HDL Cholesterol (mg/dL) <40 Low (male) <40 Low (female) LDL Cholesterol (mg/dL) <100 Optimal 100-129 Near or above optimal 130-159 Borderline-high 160-189 High >=190 Very high Risk Catergories that modify LDL goals.Risk Catergories LDL goal (mg/dL)CHD and CHD risk equivalent <100 (10-year risk >20%)Multiple (2+) risk factors <130 (10-year risk =<20%)0-1 risk factors <160 (<10-year risk) Defining levels of lipids in metabolic syndromeTriglycerides >=150 mg/dLHDL Cholesterol Men <40 mg/dL Women <40 mg/dL Non-HDL cholesterol is a second target for therapy in personswith high triglycerides (>=200 mg/dL) Michele MethodistUric acid [id number] 07:46:25* Test Item Value Reference Range Interpretation Comments Uric acid (test code = 3084-1) 4.5 mg/dL 3.4-7 Benge MethodistLactic acid level, SEPSIS - Now and repeat 2x every 3 hours 2019-04-30 07:32:53* Test Item Value Reference Range Interpretation Comments Lactic acid (test code = 45859-2) 2.1 mmol/L 0.5-2.2 Ryne MethodistXR Foot 3 Vw Rplqsadge2670-24-93 07:25:58Hm Interface, Radiology Results 04/30/2019 7:29 AM CSTEXAMINATION: XR FOOT 3 VW BILATERALCLINICAL HISTORY: 63 years Male Osteomyelitis suspected foot swelling diabeticCOMPARISON: None available at this time.IMPRESSION:Patient has undergone partial indentation of the left first phalanx.No evidence of osteomyelitis in either foot.No evidence of fracture or dislocation bilaterallyT he bones are demineralized bilaterallyJoint space narrowing in the first through fifth tarsometatarsal joints bilaterallyNo suspicious focal blastic or lytic le sionsNo radiopaque foreign bodies are present. [id number] MethodistUs duplex arterial lower qkyujaztg7231-12-39 23:36:00Interface, Radiology Results In - 04/29/2019 11:37 PM STORE ADMINISTRATOR Vascular Ultrasound Laboratory Lower Extremity Arterial Duplex Report [id number] [address]Owh.Name: DUONG HERNANDEZ.ID: [id number] St.Date: 04/29/2019 Refer.MD: TREMAYNE CALLE MD Exam Time: 7:34:00 PM Study Type:LE Arterial Height: 72in BSA: 2.01 m2 Age: 8 1955,63Y Sex: MALE Sonogrphr: CHELSEA Castellon. Stat.:Inpatient Room: ED34 Tape Vol: , CPT - 4: 33977 Echo Event ID:[id number] Order ID: [id number] Reason for Study:Leg pain and discoloration bilateraly. History ofDM2, lefr toe amputation, PVD, ESRD, and bilateral balloonangioplasty.Procedures: Colorflow, Grayscale/2D, Pulsed wave DopplerRace: B SUMMARY : DUPLEX SCAN OBSERVATIONS:RIGHT: There is addison rd and calcified plaque noted in the common femoral,profunda, femoral, andpoplit eal arteries. There is calcified arterialwalls in the posterior tibial artery, p eroneal artery and anteriortibial artery. There is elevated velocities with dist urbed colorflowin the proximal posterior tibial, mid posterior tibial, distalpos terior tibial. Diminished waveform in the proximal peroneal artery.Unable to obt ain Doppler waveforms in the mid and distal peronealarteries. Absent waveform in the mid anterior tibial artery withcollaterals noted. LEFT: There is hard and calcified plaque noted in the common femoral,profunda, femoral, andpopliteal art eries. There is calcified arterialwalls in the posterior tibial artery, peroneal artery and anteriortibial artery. There is elevated velocities with disturbed c olorflowin the profunda artery, proximal posterior artery, mid anteriortibial, and distal anterior tibial artery. Absent Doppler waveform inthe mid posterior t ibial artery with collaterals noted. Diminishedwaveform in the distal posterior tibial artery. Absent peronealsignals. PRELIMINARY FINDINGS:1. 50-75% stenosis o f the right proximal posterior artery with thehighest ratio of 2.9 and left pro ximal posterior tibial artery ratio3.1.2. 50-75% stenosis in the left profunda a rtery with a ratio of 2.4.3. 50-75% stenosis in the left anterior tibial artery with thehighest ratio of 2.424. Total occlusion of left peroneal artery.5. Abse nt Doppler wave form in the left mid posterior tibial arterywith collaterals no phu.6. Hard calcified plaque in the visualized arteries, bilaterally. Prelimin maury results reported to Tamara at 1125 PM on 04/29/19.PHYSICIAN INTERPRETATION:A rterial duplex examination of bilateral lower extremitiesdemonstrates bilateral multi-level arterial occlusive disease. FIN DINGS: ME ASUREMENTS: D OPPLERRight SHOP TECH prox SHOP TECH prox PSV 113 cm/s Right SFA Mid [...] Prox Peroneal Prox P 19 cm/s Right THERMITE BOMB LOADER Mid THERMITE BOMB LOADER Mid PSV 82.8 cm/s Tibial Post Rig ht Tibial Po 60 deg Right Tibial Po 60 deg Right THERMITE BOMB LOADER Prox THERMITE BOMB LOADER P kailey PSV 166 cm/s THERMITE BOMB LOADER Prox PSV 80 cm/sLeft SHOP TECH Dist SHOP TECH Dist PSV 58.7 cm/s Left SFA Dist SFA Dist PSV 65 cm/s Left SFA Mid SFA Mid PSV 72.8 cm/s Left SFA Prox SFA Prox PSV 68.9 cm/s Left Pop Prox Pop Prox PSV 66.3 cm/s Pop Prox PSV 66 cm/sPeroneal Dist Peroneal Dist P 0 cm/s Left Peroneal Mid Peroneal Mid PS 0 cm/s Left Peroneal Prox Peroneal Prox P 0 cm/ s Profunda Left Profunda D 60 deg Left VERONICA Dist VERONICA Dist P SV 133 cm/s Tibial Art Left Tibial Art 60 deg Left Tib ial Art 60 deg Left Tibial Art 60 deg VERONICA Mid VERONICA Mid PSV 84 cm/s Left VERONICA Prox VERONICA Prox PSV 142 cm/s VERONICA Prox PSV 142 cm/sRight SHOP TECH Dist SHOP TECH Dist PSV 114 cm/s Right Profunda Profunda PSV 104 cm/s Right SFA Dist SFA Dist PSV 97 cm/s Right THERMITE BOMB LOADER Prox 1 THERMITE BOMB LOADER Prox 1 PSV 151 cm/s Right THERMITE BOMB LOADER Prox 2 THERMITE BOMB LOADER Prox 2 PSV 166 cm/s Right THERMITE BOMB LOADER Mid 2 THERMITE BOMB LOADER Mid 2 PSV 79 cm/s Right THERMITE BOMB LOADER Distal THERMITE BOMB LOADER Distal PSV 233 cm/s Right VERONICA Prox VERONICA Prox PSV 79 cm/s Right VERONICA Mid VERONICA Mid PSV 103 cm/s Right VERONICA Dist 1 VERONICA Dist 1 PSV 77 cm/s Left Profunda Profunda PSV 122 cm/s Left Profunda 1 Profunda 1 PSV 142 cm/s Left Pop Dist Pop Dist PSV 69 cm/s Left Pop Dist 1 Pop Dist 1 PSV 61 cm/s Left THERMITE BOMB LOADER Prox THERMITE BOMB LOADER Prox PSV 189 cm/s Left THERMITE BOMB LOADER Mid THERMITE BOMB LOADER Mid PSV 34 cm/s Left THERMITE BOMB LOADER Distal THERMITE BOMB LOADER Distal PSV 15 cm/s Left VERONICA Mid 2 VERONICA Mid 2 PSV 82 cm/s Left VERONICA Mid 1 VERONICA Mid 1 PSV 220 cm/s Right VERONICA Distal VERONICA Distal PSV 43 cm/s Left VERONICA Distal VERONICA Distal PSV 95 cm/s Left VERONICA Dist 1 VERONICA Dist 1 PSV 109 cm/s Left VERONICA Dist 2 VERONICA Dist 2 PSV 269 cm/s S igned 04/29/2019 11:36 PMZsolt MD Janessa, RPVIHoulemuel shattuck hospital MethodistUs ankle brachial [id number] 23:20:00Interface, Radiology Results In - 04/29/2019 11:20 PM [facility] Vascular Diagnostic Laboratory Physiologic Arterial Leg Report [id number] [place] [address] Pat.Name: DUONG HERNANDEZ.ID: [id number] .Date: 04/29/2019 Refer.MD: BAKARI CALLEC MD CARMEN Exam Time: 7:13:00 PM Study Type:Physiologic Leg Height: 72in Weight: 175lb BSA: 2.01 m2 Age: 8 1955,63Y Sex: MALE Sonogrphr: CHELSEA Castellon, Jake Pierre. Stat.:Inpatient Room: ED34 Tape Vol: VM, CPT - 4: 56230 Echo Event ID:[id number] Order ID: [id number] Reason for Study:Leg pain and discoloration bilateraly. History ofDM2, lefr toe amputation, PVD, ESRD, and bilateral balloonangioplasty.Procedures: Ankle/brachial pressures, Digit pressures, Non- imagingcontinuous wave Doppler, PPG waveform tracingRace: B SUMMARY: DOPPLER SIGNALS DOPPLER SIGNALS ARTERY RIGHT LEFT Posterior Tibial Abnormal Abnormal Dorsalis Pedis Abnormal Abnormal SEGMENTAL PRESSURE (mmHg): RIGHT LEFT Brachial 163 * Ankle DP Non-com pressible 129 Ankle PT 120 118 Great Toe 36 Amputation ANKLE /BRACHIAL INDEX: RIGHT LEFT Dors twila Pedis Non-Compressible 0.79Posterior Tibial 0.74 0.72 TOE/BRACHIAL INDEX: RIGHT LEFT 0.22 unable to obtainPRELIMINARY FIND INGS:1. Ankle/brachial indices fall into the moderate category in the leftand r ight posterior tibial arteries and the left dorsalis pedisartery. 2. Ankle/brach ial index in the right dorsalis pedis was not able to beobtained due to non-comp ressible artery.3. Toe/brachial index in the right falls into the vvkhoxrn-ui-ms verecategory. 4. Toe/brachial index in the left was unable to be obtained due to amputation.5. See same day arterial duplex.PHYSICIAN INTERPRETATION:1. Ankle/br achial indices fall into the moderate category in the leftand right posterior ti bial arteries and the left dorsalis pedisartery. 2. Ankle/brachial index in the right dorsalis pedis was not able to beobtained due to non-compressible artery.3 . Toe/brachial index in the right falls into the liyrdmpm-fu-vqrtqoudkdfrww. 4. Toe/brachial index in the left was unable to be obtained due toamputation.------ FINDINGS: Linda d 04/29/2019 11:20 Marilu Riddle MD, RPVIHoulemuel shattuck hospital MethodistType and screen 2019-04-29 19:35:00* Test Item Value Reference Range Interpretation Comments ABO grouping (test code = 883-9) A Rh type (test code = 78233-7) POS Antibody screen (gel) (test code = 890-4) NEG Benge MethodistComprehensive metabolic [id number] 18:43:33* Test Item Value Reference Range Interpretation Comments Sodium (test code = 2951-2) 142 135- 148 mEq/L Potassium (test code = 2823-3) 4.8 3.5- 5.0 mEq/L Chloride (test code = 5-0) 93 98- 112 mEq/L L CO2 (test code = 2027-9) 30 24- 31 mEq/L Anion gap (test code = 56802-1) 19@ANIO 7- 15 mEq/L H BUN (test code = 3094-0) 45 mg/dL 8-23 H Creatinine (test code = 2160-0) 9.78 mg/dL 0.7-1.2 H Glucose (test code = 2345-7) 285 mg/dL 65-99 H Calcium (test code = 64332-4) 7.8 mg/dL 8.8-10.2 L Protein (test code = 2885-2) 7.7 g/dL 6.3-8.3 Rtgxfwg6601.6-7.0 g/dL1 skim4509.4-7.6 g/dL7 months-7airq996.1-7.3 g/dL1-2 .6-7.5 g/dL>3 eakfa533.0-8.0 g/hX94-5170280.3-8.3 g/dL Albumin (test code = 1751-7) 3.4 g/dL 3.5-5 L A/G ratio (test code = 1759-0) 0.8 0.7-3.8 Alkaline phosphatase (test code = 6768-6) 128 U/L 40-129 AST (test code = 1920-8) 19 U/L 10-50 ALT (test code = 1742-6) 8 U/L 5-50 Total bilirubin (test code = 1974-) 0.5 mg/dL 0-1.2 Lab Interpretation (test code = 27726-3) Abnormal Ryne MethodistPartial thromboplastin time, unzoyeggo4954-05-54 18:36:20* Test Item Value Reference Range Interpretation Comments PTT (test code = 13363-5) 38.4 23.0- 36.0 sec H PTT therapeutic range for unfractionated heparin is61.0-112.0 seconds which corresponds to Anti-Xa0.3-0.7 U/ml. Lab Interpretation (test code = 99141-1) Abnormal Benge MethodistProthrombin time with [id number] 18:35:28* Test Item Value Reference Range Interpretation Comments Prothrombin time (test code = 5902-2) 14.3 11.5- 14.5 sec INR (test code = 88388-4) 1.1 Th e International Normalized Ratio (INR) is a therapeutic monitoring tool for patients who are stable on oral anticoagulant therapy. An INR of 2.0-3.0 is suggested for deep vein thrombosis/pulmonary embolism. [facility] ED Preliminary Interpretation - Not an [id number] 17:43:51* Test Item Value Reference Range Interpretation Comments ANDRES (test code = ANDRES) Tremayne Calle MD 5:28 [facility] Interpretation - Not an OrderPerformed by: Tremayne Calle MDAuthorized by: Tremayne Calle MD ECG reviewed by ED Physician in the a bsence of a area coordinator: yes Interpretation: Interpretation: abnormal Rate: ECG rate: 66 ECG rate assessment: normal Rhythm: Rhythm: sinus rhythm Ectopy: Ectopy: none QRS: QRS axis: Left QRS intervals: NormalConduction: Conduction: abnormal Abnormal conduction: complete RBBB ST segments: ST segments: NormalT waves: T waves: inverted Inverted: Y1Ffmyb findings: Other findings: LAE Lab Interpretation (test code = 87469-8) Abnormal Benge MethodistMagnesium [id number] 07:26:32* Test Item Value Reference Range Interpretation Comments Magnesium (test code = 84942-5) 2.0 mg/dL 1.6-2.4 Benge WmmjwypepOxlzmoor6724-63-92 09:53:48* Test Item Value Reference Range Interpretation Comments Troponin (test code = 19705-2) 0.662 ng/mL 0-0.04 H In patients suspected of having a myocardial infarction, along with all other appropriate clinical measures and actions including ECG and other diagnostics as appropriate, measure Ultra TnI at 0 hrs and at 3 hrs.Myocardial infarction VERY LIKELYThe 0 hr TnI level is > 0.10 ng/mL Jean Pierre cardial infarction LIKELYThe 0 hr TnI level is > 0.04 ng/mL and 3 hr level is increased or decreased by at least 0.020 ng/mL Myocardi al infarction VERY UNLIKELYBoth the 0 hr and 3 hr TnI levels <= 0.04 ng/mL(within normal limits) OR 0 hr is > 0.04 ng/mL and 3 hr is increased OR decreased by less than 0.020 ng/mL Lab Interpretation (test code = 00486-7) Abnormal [facility] lab kwxdpnogd5195-72-02 17:40:33Addendum by Edy Lugo MD on 04/26/2019 5:10 PMModerate conscious sedation was administered from 14:24 ( time) with physician monitoring of patient consciousness, O2 saturation, BP, HR for a total duration of [address] Lugo was present and scrubbed in for entire duration of case. PROCEDURES PERFORMEDSelective coronary angiographyPCI of LAD PRIMARY OPERATORAlpesh Mylene GREEN FELLOWCath fellow- Marie Jurado MDInterventional Fellow- Neo Ortiz MD DIAGNOSTIC CORONARY ANGIOGRAM FINDINGSLeft main- No significant stenosisLAD- Moderate diffuse disease. Proximal LAD is calcified and has severe (95%) stenosis. Ramus intermedius- No significant stenosis.LCX- Minimal diffuse disease. OM 1 is large and is bifurcating. Mild ( 30%) stenosis just proximal to bifurcation.RCA- Minimal diff use disease. Mild (30%) stenosis noted in mid RCA. PROCEDURE DETAILSAfter obtain ing informed consent, the patient was brought to the cardiac catheterization aleksandra te. The right groin was prepped and draped in normal sterile fashion. The right femoral artery was located, skin was infiltrated was lidocaine. The artery was a ccessed using the Seldinger technique, and a 4Fr sheath was inserted. Coronaries were visualized with JL4 and 3DRC catheters. Attention was then turned to the LAD lesion. 4 Fr sheath was exchanged for 6 Fr sheath. PERCUTANEOUS CARDIAC INTE RVENTION REPORT Interventional Fellow: Edouard Ortiz EQUIPMENT/ANTICOAGULATION: Ri t Common Femoral Sxnufg7Y Sheath XB LAD 3.5 Guide Catheter Noam Blue coronary wire Anticoagulation: Angiomax bolus and Infusion with ACT >250 sec prior to procedure PROCEDURAL DETAILS: The LMT was engaged with the XB 3.5 Guide Catheter and a Noam Blue coronary wire was advanced into the distal LAD. The lesion in the proximal LAD was pre-dilated with a 3.25 x 10mm Odonnell cutting balloon at 8 elodia and stented with a 3.5 x 23mm Xience LALA. We then post-dilated the length of the stent with a 3.75 x 20mm NC balloon at 20-22 elodia. Final angiography revealed no evidence of dissection or perforation; there was AURELIA 3 flow and 0% residual stenosis. HEMOSTASIS: Proglide Closure Device COMPLICAT IONSNone PLAN: 1. ASA 81mg daily2. Clopidogrel 75mg daily . 3. Cardiac medical t herapy and aggressive risk factor modification. Cardiac rehabilitation. 4. Trans ferred in stable conditionModerate conscious sedation was administered from 14:2 4 ( time) with physician monitoring of patient consciousness, O2 saturat ion, BP, HR for a total duration of [address] Lugo was present and scrubbed in for entire duration of case. PROCEDURES PERFORMEDSelective coronary angiogra phyPCI of LAD PRIMARY OPERATORAlfransisco Lugo MD FELLOWCath fellow- Marie Cheek DInterventional Fellow- Neo Ortiz MD DIAGNOSTIC CORONARY ANGIOGRAM FINDINGSLeft main- No significant stenosisLAD- Moderate diffuse disease. Proximal LAD is elvira cified and has severe (95%) stenosis. Ramus intermedius- No significant stenosis .LCX- Minimal diffuse disease. OM 1 is large and is bifurcating. Mild ( 30%) gianni nosis just proximal to bifurcation.RCA- Minimal diffuse disease. Mild (30%) sten osis noted in mid RCA. PROCEDURE DETAILSAfter obtaining informed consent, the pa tient was brought to the cardiac catheterization suite. The right groin was prep ped and draped in normal sterile fashion. The right femoral artery was located, skin was infiltrated was lidocaine. The artery was accessed using the Seldinger technique, and a 4Fr sheath was inserted. Coronaries were visualized with JL4 an d 3DRC catheters. Attention was then turned to the LAD lesion. 4 Fr sheath was exchanged for 6 Fr sheath. PERCUTANEOUS CARDIAC INTERVENTION REPORT Intervention al Fellow: Edouard Ortiz EQUIPMENT/ANTICOAGULATION: Right Common Femoral Lqacmx0R Sheath XB LAD 3.5 Guide Catheter Noam Blue coronary wire Anticoagulation: Ang iomax bolus and Infusion with ACT >250 sec prior to procedure PROCEDURAL DETAILS: The LMT was engaged with the XB 3.5 Guide Catheter and a Noam Blue coronary wire was advanced into the distal LAD. The lesion in the proximal LAD was pre-dilated with a 3.25 x 10mm Odonnell cutting balloon at 8 elodia and stented with a 3.5 x 23mm Xience LALA. We then post-dilated the length of the stent with a 3.75 x 20mm NC balloon at 20-22 elodia. Final angiography revealed no evidence of dissection or perforation; there was AURELIA 3 flow and 0% residual stenosis. HEMOSTASIS: Proglide Closure Device COMPLICATIONSNone PLAN: 1. ASA 81mg daily2. Clopidogrel 75mg daily . 3. Cardiac medical therapy and aggressive risk factor modification. Cardiac rehabilitation. 4. Transferred in stable conditionBenge MethodistActivated clotting [id number] 14:57:14* Test Item Value Reference Range Interpretation Comments Activated clotting time (test code = 5298) 436 96- 152 sec H Film Processing Utility Worker Name: Robbin Domingo ID: [id number] Lab Interpretation (test code = 69416-8) Abnormal Benge MethodistAnti Xa, eitwxrsqzujcve0370-71-40 07:45:08* Test Item Value Reference Range Interpretation Comments Anti Xa, unfractionated (test code = 3274-8) 0.29 U/mL 0.3-0.7 L Therapeutic Range: 0.30 - 0.70 U/mL Lab Interpretation (test code = 95876-3) Abnormal Benge MethodistEchocardiogram complete w contrast and 3D if nigqib1936-93-12 16:31:00Interface, Radiology Results In - 04/21/2019 4:31 PM STORE 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 Stat.:Inpatient Room: ED25 Study Status:Final Echo Event ID:[id number] Order ID: [id number] Reason for Study:Type II NV History / Clinical:Diabetes, Hypertension, Peripheral VascularDisease, Degenerative cervical and lumbar spine diseaseProcedures: 2D Echo, Colorflow Doppler, Portable, Intravenous DefinityContrastRace: B SUMMA RY: Concentric left ventricular remodeling. LV EF is normal.Diastolic dysfunction Grade II (Moderate): Impaired relaxation w ithelevated LV filling pressures. FINDINGS:-- LV: LV size is normal. Concentric left v entricular remodeling. LV EF is normal. Overall wall motion is normal. Estimated EF is 55-59%.RV: RV size is normal. RV systolic funct ion is normal.LA: LA volume is mildly enlarged.RA: RA size is normal .AO: Aortic root diameter is normal.JUDY: No pericardial effusion.SVn: Normal collapse of IVC during inspiration is consistent with norm al RA pressure.AV: No structural AV abnormalities noted.MV: Mild th ickening and calcification of mitral leaflets.PV: No structural PV abnorma lities noted. A trace of pulmonic regurgitation. TV: No structura l TV abnormalities noted.Oakes: Diastolic dysfunction Grade II (Moderate): Im paired relaxation with elevated LV filling pressures.Other: Insuffi cient TR jet to estimate PA systolic pressure. --MEASUREMENTS: 2DParasternal Long Fisher Ao An 2.4 cm LVPWd 1.1 cm Ao Rtd 3.7 cm Index 1.8 cm/m2 LA Ds 4.1 cm IVSd 1.4 cm RWT 0.5 2 LVIDd 4.2 cm Index 2 cm/m2 LV Mass 189 g (122-174) LVIDs 2.8 cm LVM Index 92 g/m2 LV%fs 33 % LA Sng Plane LA Area 23 cm2 (8.8-23.4) LA Vol 74 ml Index 36 ml/m2 LA LngAx 5.9 cm RA Sng Plane RA Vol 45 ml Index 22 ml/m2 RA LngAx 4.7 cm RA Area 15 cm2 (8.3- 19.5)LVOT Stroke Vol LVOT 2.5 cm LVOT LVOT Area 4.9 cm2 DOPPLERLVOT Stroke Vol LVOT TV I 16 cm LVOT CI 2.3 l/m/m2 LVOT SV 80 ml HR 59 bpm LVOT CO 4.7 l/min LVOT SVi 39 ml/m2 MV E/A Ratio MV pkE 97 cm/s (60-130) MV E/A 1.3 MV pkA 73 cm/s Signed 04/21/2019 04:31 Drew Barahona MethodistHepatitis B surface antigen 2019-04-21 15:00:45* Test Item Value Reference Range Interpretation Comments Hepatitis B surface Ag (test code = 5195-3) Non-reactive Non-reacti ve Michele GnosticismB natriuretic ahumjnd1018-48-27 04:14:42* Test Item Value Reference Range Interpretation Comments BNP (test code = 06726-8) 1151 pg/mL 0-100 H ANDRES (test code = ANDRES) ___GLU_ results called to an d read back by _SUZY BO(name/location)at __ 04/21/2019 03:48 (date/time) by __LSB. Lab Interpretation (test code = 09672-0) Abnormal Michele MethodistXR Chest 1 Vw [id number] 03:06:29Hm Interface, Radiology Results Incoming - 04/21/2019 3:09 AM CSTExamination: XR CHEST 1 VW PORTABLEClinical History: SOBComparison: None.Technique: Single frontal view of the chest is obtained.Findings:Low lung volume with vascular crowding is seen. Sternotomy wires are noted. Minimal right base subsegmental atelectasis is seen. No pneumothorax is seen.The heart size is normal.No pleural effusion is seen.Impression:Low lung volume with vascular crowding and right base minimal atelectasis. Otherwise no acute infiltrate identified.[facility]-[id number] MethodistCTA Abdominal Aorta And Bilateral Iliofemoral Runoff W Wo Contrast 2019-04-20 10:59:19Hm Interface, Radiology Results Incoming - 04/20/2019 11:02 AM CSTEXAMINATION: CT ANGIOGRAM ABDOMINAL AORTA AND BILATERAL ILIOFEMORAL RUNOFF W WO CONTRASTCLINICAL HISTORY: I87.1 Compression of vein, I73.9 Peripheral vascular disease unspecified, Bilateral Pheripheral disease to lower extremitesTECHNIQUE: Multiple CT angiographic images of the abdomen, pelvis, and bilateral lower extremities were obtained during intravenous administration of iodinated contrast. Multiple computerized reformatted images as well as 3-D volume rendered images were also obtained. Precontrast images of the abdomen were also obtained.CT scans are performed using radiation dose reduction techniques. Technical factors are evaluated and adjusted to ensure appropriate moderation of exposure. Automated dose management technology is applied to adjust radiation exposure while achieving a diagnostic quality image.COMPARISON: 10/15/2016FINDINGS:Calcified plaque is present within the abdominal aorta which remains normal in caliber. There is no abdominal aortic dissection or aneurysm. The celiac and inferior mesenteric arteries remain widely patent. There is mild stable narrowing within the proximal superior mesenteric artery. There is high- grade stenoses at the origins of both renal [...] present within the arteries of both lower extremities.The right lower extremity runoff demonstrates mild stenosis of the common femoral artery from posterior wall calcified plaque, new since p revious examination. The main profunda femoral artery is widely patent although stenoses are seen within the distal branches. The proximal mid superficial femor al artery widely patent although there is moderate stenoses of the distal superf icial femoral artery from calcified plaque, worsened since previous exam (images 279-291, series 2). Moderate to high-grade stenosis of the above-knee popliteal artery is present from calcified plaque, new since previous examination. The be low-knee popliteal artery is widely patent. Evaluation of the tibial vessels is limited due to calcified plaque obscuring evaluation of the vessel lumen. The an terior tibial artery remains occluded proximally. Multifocal stenoses are presen t throughout the posterior tibial and peroneal artery, similar in appearance to previous examination. Peroneal artery collaterals reconstitute the dorsalis pedi s artery.The left lower extremity runoff demonstrates no significant common femo ral artery stenosis. High-grade narrowing suspected at the origin of the profund a femoral artery from calcified plaque, stable to previous examination. Mild to moderate narrowing of the distal superficial femoral artery is new since previou s examination. Mild to moderate stenoses of the above-knee popliteal artery are new since previous examination. The below-knee popliteal artery is widely patent . The posterior tibial artery remains occluded proximally. Stenoses and occlusio ns are suspected also throughout the anterior tibial artery, similar to previous exam. Stenoses are again seen throughout the peroneal artery which is the domin ant runoff vessel to the left foot, reconstituting the posterior tibial artery a t the ankle.Limited early arterial phase imaging of the spleen, pancreas, and li mark is normal. A 1.2 cm calcified gallstone is present in the gallbladder withou t gallbladder distention or inflammation. Both kidneys are atrophic and replaced by innumerable cysts, the largest on the right side measuring 2 cm. A 4 mm abad gn calcification is seen within the right kidney.There is no lymphadenopathy or ascites. Contrast is present throughout the stomach, small bowel, and colon. The re are no inflammatory changes around the large or small bowel. Diverticula are present in the colon without findings of diverticulitis.There are no pelvic mass es. Bladder is collapsed.Imaging of the soft tissues of both lower extremities d emonstrates bilateral pedal edema. No enhancing soft tissue masses or fluid sebastian ections are seen.There are multiple dilated venous collaterals are seen in the l eft chest wall and left abdomen, side suggestive of central venous stenosis in t he chest, not included on this CT.There is volume loss and scarring in the lung bases.The bones appear sclerotic, suggestive of findings from renal osteodystrop hy. There are postsurgical changes in L3-4 with orthopedic hardware noted.IMPRES NOAM:1.Calcified plaque is present within the abdominal aorta which is normal in caliber. There is high-grade narrowing at the origin of the right internal iliac artery.2.The right lower extremity runoff demonstrates new mild stenosis of the common femoral artery. Moderate stenoses of the distal superficial femoral art abigail have worsened since previous exam. Moderate to high-grade narrowing of the a kisha-knee popliteal artery is also new. 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 Multifocal stenoses are again seen throughout the po sterior tibial and peroneal artery.3.The left lower extremity runoff demonstrate s stable high-grade narrowing at the origin of the profunda femoral artery from calcified plaque. There is mild to moderate narrowing of the distal superficial femoral artery, new since previous exam. Mild to moderate narrowing of the above -knee popliteal artery is also new. The posterior tibial artery is occluded prox imally, similar to previous exam. Stenoses and occlusions are again seen through out the anterior tibial artery, also stable. Multifocal stenoses are also presen t throughout the peroneal artery.[facility]-GQ59HEYCMexpiae MethodistSunm [facility] antigen [id number] 07:37:59* Test Item Value Reference Range Interpretation Comments SAB serum ID (test code = 5866) [id number] SAB serum collection D&T (test code = 5867) 01/11/2019 07:10 AM SAB class I antibody assignment (test code = 5870) B37 SAB cPRA class I (test code = 5868) 2 SAB class II antibody assignment (test code = 5871) Negative SAB cPRA class II (test code = 5869) 0 Case number (test code = 8004032) [id number] Single antigen beads (test code = 4604) See link below for PDF Lab Report Benge MethodistSplint [id number] 21:09:38Nikole Esteban NP 01/05/2019 9:10 PMSplint ApplicationPerformed by: Nikole Esteban NPAuthorized by: Devan Rhodes DO Consent: Consent obtained: Verbal Consent given by: Patient Risks discussed: Skin discoloration, distal paresthesia, pain and swelling Alternatives discussed: Delayed treatment, alternative treatment and observationPre-procedure details: Sensation: NormalProcedure details: Location: Foot Splint type: Short leg Supplies: O dkni-UcibcOmst-gdskwpwxy details: Pain: Improved Sensation: Normal Patient tolerance of procedure: Tolerated well, no immediate complicationsBenge MethodistLaceration Sigpnx4643-60-55 19:58:55Devan Rhodes DO 01/06/2019 6:25 AMLaceration RepairPerformed by: Devan Rhodes DOAuthorized by: Devan Rhodes DO Consent: Consent obtained: Verbal Consent given by: Patient Risks discussed: Pain Alternatives discussed: No treatment and delayed treatmentUniversal protocol: Procedure explained and questions answered to patient or proxy's satisfaction: yes Patient identity confirmed: Arm band and verbally with patientAnesthesia (see MAR for exact dosages): Anesthesia method: Local infiltration Local anesthetic: Lidocaine 1% w/o epiLaceration details: Location: Toe Toe loca tion: R big toeRepair type: Repair type: SimplePre-procedure details: Prep aration: Patient was prepped and draped in usual sterile fashionExploration: Hemostasis achieved with: Direct pressure Contaminated: no Treatment: Wound cleansed with: Alcohol. Amount of cleaning: StandardSkin repair: Repair met hod: Sutures Suture size: 2-0 Suture material: Prolene Suture technique: Simple interruptedApproximation: Approximation: Close Vermilion border: well -aligned Post-procedure details: Dressing: Sterile dressing (Surgicel and dr y dressing) Patient tolerance of procedure: Tolerated well, no immediate compl icationsHoulemuel shattuck hospital EstheristClostridium Difficile Toxin A & [id number] 13:01:00* Test Item Value Reference Range Interpretation Comments Clostridium Difficile Toxin A & B (test code = 290420218) NEGATIVE NEGATIVE Criteria was met after checking with SUZY BOLDEN --- 01/04/19 1301 ---C DIFF A&B PROB previously reported as: NEGATIVE Testing on stool aspirate specimens is outside operations and maintenance technican claims since specimen type not validated on this assay. [facility] CenterBlood Ksicwys3912-36-52 14:14:00* Test Item Value Reference Range Interpretation Comments Blood Culture (test code = 43004900) NO GROWTH AFTER 5 DAYS, FINAL REPORT [facility] CenterFOOT LEFT AP [id number] 20:40:00 [place] [address] Patient Name: DUONG HERNANDEZ MR #: [id number] : 1955 Age/Sex: 63/M Req #: [id number] Adm Physician: ANGELITA ESQUIVEL MD Ordered by: SAVANNA MO DPM Report #: [id number] Location: MED/SURG2 Room/Bed: [facility] [place] Procedure: [id number] DX/F OOT LEFT AP LAT Exam Date: 01/01/19 Exam Time: 202 5 REPORT STATUS: Signed Exam: Foot 2 views History: Postop bunionectomy Comparison: December 29 019 Findings: 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 Overlyi ng cast. Impression: Postoperative change to the forefoot Sign ed by: Dr. Alphonse Yates M.D. on 01/01/2019 8:41 PM Dictated By: ALPHONSE YATES MD 40 T ranscribed By: FELECIA on 01/01/192040 COPY TO: SAVANNA MO DPM CHEST 2 HNOPJ9691-03-14 11:23:00 [facility] [address] [place] [address] Patient Name: DUONG HERNANDEZ MR #: [id number] : 1955 Age/Sex: 63/M Req #: [id number] Adm Physician: ANGELITA ESQUIVEL MD Ordered by: SAVANNA MO DPM Report #: [id number] Location: MED/SURG2 Room/Bed: [facility] [place] Procedure: [id number] DX/C HEST 2 VIEWS Exam Date: Exam Time: REPORT STATUS: Signed EXAMINATION: CHEST 2 VIE WS INDICATION: Pre-operative COMPARISON: None FINDINGS: LINES/TUBES:None LUNGS:The lungs are well-inflated. No focal consolida tion or pulmonary edema. PLEURA:No pleural effusion or pneumothorax. M EDIASTINUM:The cardiomediastinal silhouette appears normal in size and shape. BONES/SOFT TISSUES:No acute osseous injury. Partially visualized cervical spi ne fusion hardware and surgical clips in the soft tissues of the neck. Superio r mediastinal cerclage wires, the upper of which is fractured at 2 sites. Pacheco rgical clips also overlie the anterior mediastinum. ABDOMEN:No free air und er the diaphragm. IMPRESSION: No focal pneumonia or pulmonary edema. Signed by: Gonzalez Mahan MD on 12/31/2018 11:28 AM Dictated By: GONZALEZ MAHAN MD 27 Transcribed By: FELECIA on 12/31/181127 COPY TO: SAVANNA MO DPM FOOT LEFT AP [id number] 15:14:00 [place] [address] Patient Name: DUONG HERNANDEZ MR #: [id number] : 1955 Age/Sex: 63/M Req #: [id number] Adm Physician: ANGELITA ESQUIVEL MD Ordered by: ANUP ZEE MD Report #: [id number] Location: [facility] Room/Bed: [place] [address] Procedure: [id number] DX/FOOT LEFT AP LAT Exam Date: 12/29/18 Exam Chuckie e: 1455 REPORT STATUS: Signed EX AMINATION: FOOT LEFT AP LAT INDICATION: Osteomyelitis COMPARISO N: None FINDINGS: No acute fracture or dislocation. There is soft tissue defect of the distal great toe with associated osteopenia of the distal phalanx. No specific radiographic evidence of osteomyelitis. Overlying gauze material obscures fine bony detail. Diffuse atherosclerotic arterial calcific ations. IMPRESSION: Distal great toe soft tissue defect with underlying distal phalanx osteopenia. No specific radiographic evidence of osteomyelitis. No acute fracture or dislocation. Signed by: Gonzalez Mahan MD on 12/29/2018 3:17 PM Dictated By: GONZALEZ MAHAN MD 16 Transcribed By: FELECIA on 12/29/181516 COPY TO: ANUP ZEE MD HLA allogeneic ocgcpebfgy8341-12-88 21:16:59* Test Item Value Reference Range Interpretation Comments [facility] interpretation (test code = 5945) Results called to Júnior Gutiérrez on 11/04/2018 at 9:15 om by Venkat Palacio. Verbal read-back obtained. [facility] source (test code = 5886) Peripheral Blood [facility] donor full name (test code = 5884) UNOS, [id number] [facility] donor MRN (test code = 5885) [id number] [facility] current serum ID (test code = 5890) [id number] [facility] serum collection D&T (test code = 5887) 10/14/2018 11:28 AM [facility] flow XM T cell result, current (test code = 5888) Negative [facility] flow XM B cell result, current (test code = 5889) Negative Case number (test code = 2160040) [id number] HLA crossmatch (test code = 127) See link below for PDF Lab Report Ryne Thrasher
[2019-07-29] MEDS ORDERED: SODIUM CHLORIDE 0.9% 1000ML 1,000 ML IV STA (14:49)
[2019-07-29] MEDS ORDERED: CEFEPIME 1GM/NS 0.9% 50 ML 50 ML IV ONE (14:49)
[2019-07-29] MEDS ORDERED: VANCOMYCIN 1GM/NS 250 ML 250 ML IV ONE (14:49)
--- NOTE | 2019-07-29 14:56 | NUR ---
Pt states does not need any pain medication at the present time.
--- NOTE | 2019-07-29 14:58 | NUR ---
Verified order for NS bolus, ok to give at 75ml/hr.
[2019-07-29] MEDS ORDERED: HYDROCODONE/APAP 10MG-325MG TAB PO ONE (15:00)
--- NOTE | 2019-07-29 15:01 | Emergency Department Note ---
History of Present Illnes History of Present Illness Chief Complaint: Extremity Trauma/Pain History of Present Illness This is a 63 year old male .left chonic foot wound infection sent from Dr Da Silva office for admit Chief Complaint Comment Pt arrived to the ER with c/o a Left foot infection. Reports has been having recurring foot infections that Dr. Da Silva has been treating but not getting any better. Pt reports sent to the ER to have his foot amputated. Reports clear drainage. Denies any foul odor Historian: Patient Arrival Mode: Car Onset (how long ago): month(s) Radiation: non-radiation, back, neck, extremity, abdomen, periumbilical, flank, proximal, distal, other Severity: moderate Onset quality: gradual Duration (how long): month(s) Timing of current episode: constant Progression: unchanged Context: recent illness, recent surgery, recent immobilization, recent travel, trauma/injury, new medications, hx of DVT/PE, non-compliance w/ medications, other Relieving factors: none Exacerbating factors: none Treatments prior to arrival: other (currently on abx ) Past Medical/Family History Physician Review I have reviewed the patient's past medical and family history. Any updates have been documented here. Past Medical History Recent Fever: No Clinical Suspicion of Infectio: Yes New/Unexplained Change in Ment: No Past Medical History: Hypertension, Diabetes, ESRD, Hemodyalisis Other Medical History: MAKES NO URINE. HD MWF Past Surgical History: Back Surgery Other Surgery: Neck sx Back Sx (x2) Ballooning of arteries Right fistula Thyriodectomy Social History Smoking Cessation: Never Smoker Alcohol Use: None Any Illegal Drug Use: No TB Exposure/Symptoms: No Family History Family history of heart diseas: No Other Last Tetanus: UTD Review of Systems Review of Systems Constitutional: no symptoms EENTM: no symptoms Cardiovascular: no symptoms Respiratory: no symptoms Gastrointestinal: no symptoms Genitourinary: no symptoms Musculoskeletal: other ( 63 year old male .left chonic foot wound infection sent from Dr Da Silva office for admit ) Neurological: no symptoms Psychological: no symptoms, as per HPI, anxiety, depressed, emotional problems, other Endocrine: no symptoms Hematological/Lymphatic: no symptoms Review of other systems All other systems reviewed and negative. Physical Exam Related Data Allergies: Coded Allergies: heparin (Verified Allergy, Unknown, 12/29/18) Triage Vital Signs Vital Signs Date Time Temp Pulse Resp B/P (MAP) Pulse Ox O2 Delivery O2 Flow Rate FiO2 07/29/19 14:31 99.7 80 18 184/85 97 Vital signs reviewed: Yes Physical Exam CONSTITUTIONAL Constitutional: well-developed, well-nourished HENT HENT: normocephalic, atraumatic, oropharynx clear/moist, nose normal EYES Eyes: PERRL, conjunctivae normal NECK Neck: ROM normal PULMONARY Pulmonary: effort normal, breath sounds normal CARDIOVASCULAR GASTROINTESTINAL Abdominal: soft, nontender, bowel sounds normal GENITOURINARY Genitourinary: exam deferred SKIN Skin: other (chronic left foot wound - 63 year old male .left chonic foot wound infection sent from Dr Da Silva office for admit ) MUSCULOSKELETAL Musculoskeletal: ROM normal NEUROLOGICAL Neurological: alert, oriented x 3, no gross motor or sensory deficits PSYCHOLOGICAL Psychological: mood/affect normal, judgement normal Exam - additional comments drainage 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 Results Laboratory Laboratory Laboratory Tests Test 07/29/19 15:00 White Blood Count 10.99 x10e3/uL (4.8-10.8) Red Blood Count 3.20 x10e6/uL (4.3-5.7) Hemoglobin 9.0 g/dL (14.0-18.0) Hematocrit 30.3 % (38.2-49.6) Mean Corpuscular Volume 94.7 fL (81-99) Mean Corpuscular Hemoglobin 28.1 pg (28-32) Mean Corpuscular Hemoglobin Concent 29.7 g/dL (31-35) Red Cell Distribution Width 15.3 % (11.7-14.4) Platelet Count 227 x10e3/uL (140-360) Neutrophils (%) (Auto) 82.1 % (38.7-80.0) Lymphocytes (%) (Auto) 6.6 % (18.0-39.1) Monocytes (%) (Auto) 8.2 % (4.4-11.3) Eosinophils (%) (Auto) 2.0 % (0.0-6.0) Basophils (%) (Auto) 0.4 % (0.0-1.0) Neutrophils # (Auto) 9.0 (2.1-6.9) Lymphocytes # (Auto) 0.7 (1.0-3.2) Monocytes # (Auto) 0.9 (0.2-0.8) Eosinophils # (Auto) 0.2 (0.0-0.4) Basophils # (Auto) 0.0 (0.0-0.1) Absolute Immature Granulocyte (auto 0.08 x10e3/uL (0-0.1) Prothrombin Time 14.8 seconds (11.9-14.5) Prothromb Time International Ratio 1.09 Activated Partial Thromboplast Time 43.8 seconds (23.8-35.5) Sodium Level 137 mmol/L (136-145) Potassium Level 4.5 mmol/L (3.5-5.1) Chloride Level 97 mmol/L (98-107) Carbon Dioxide Level 28 mmol/L (22-29) Anion Gap 16.5 mmol/L (8-16) Blood Urea Nitrogen 39 mg/dL (7-26) Creatinine 6.85 mg/dL (0.72-1.25) Estimat Glomerular Filtration Rate 10 ML/MIN (60-) BUN/Creatinine Ratio 6 (6-25) Glucose Level 363 mg/dL (74-118) Lactic Acid Level 1.7 mmol/L (0.5-2.0) Calcium Level 9.9 mg/dL (8.4-10.2) Total Bilirubin 0.5 mg/dL (0.2-1.2) Aspartate Amino Transf (AST/SGOT) 15 IU/L (5-34) Alanine Aminotransferase (ALT/SGPT) 7 IU/L (0-55) Alkaline Phosphatase 86 IU/L (40-150) Creatine Kinase 59 IU/L (30-200) Creatine Kinase MB 1.40 ng/mL (0-5.0) Troponin I 0.004 ng/mL (0-0.300) Total Protein 8.3 g/dL (6.5-8.1) Albumin 2.7 g/dL (3.5-5.0) Globulin 5.6 g/dL (2.3-3.5) Albumin/Globulin Ratio 0.5 (0.8-2.0) Lab results reviewed: Yes Critical Care Time Subsequent provider I assumed direction of critical care for this patient from another provider of my specialty. Assessment & Plan Reassessment Reassessment time: 14:55 Reassessment 63 year old male c/o left chonic foot wound infection sent from Dr Da Silva office for admit - ordered lab ekg rad left foot blood cultures lactic - medicated w/ cefepime and vanc pt medicated w/norco 10 for pain Assessment & Plan Final Impression: (1) Diabetic foot infection (2) Chronic wound of extremity Assessment & Plan discussed plan of care and need for admit spoke w/ Dr Hussein and Dr Da Silva will admit Depart Disposition: ADMITTED Last Vital Signs Date Time Temp Pulse Resp B/P (MAP) Pulse Ox O2 Delivery O2 Flow Rate FiO2 07/29/19 14:31 99.7 80 18 184/85 97 Home Meds Active Scripts Pregabalin (LYRICA) 75 Mg Cap, 75 MG PO DAILY, #30 CAP Prov:CHLOE ESCUDERO [employer] 06/22/19 [Hydrocodone/Apap 10MG-325MG] 1 EA TAB No Conflict Check, 1 EA PO Q6H PRN for MODERATE PAIN (4-6) for 30 Days Prov:CHLOE ESCUDERO [employer]IST 06/22/19 Zolpidem Tartrate (AMBIEN) 5 Mg Tablet, 5 MG PO HS for 30 Days Prov:CHLOE ESCUDERO [employer]IST 06/22/19 [Insulin Lispro] 100 UNIT/1 ML VIAL No Conflict Check, 0 UNIT SQ ACHS high dose SSI ACHS Prov:CHLOE ESCUDERO [employer]IST 06/22/19 [Insulin Glargine] 100 UNITS/ML VIAL No Conflict Check, 15 UNITS SQ HS for 30 Days Prov:CHLOE ESCUDERO [employer] SPECIALIST 06/22/19 [Calcium Acetate] 1,334 CAP No Conflict Check, 1334 MG PO TIDWM for 30 Days Prov:CHLOE ESCUDERO [employer]IST 06/22/19 [Atorvastatin] 40 MG TAB No Conflict Check, 40 MG PO HS for 30 Days Prov:CHLOE ESCUDERO [employer] SPECIALIST 06/22/19 Aspirin (ASPIRIN CHEW) 81 Mg Chew, 81 MG PO DAILY for 30 Days Prov:CHLOE ESCUDERO [employer]IST 06/22/19 Amlodipine Besylate (NORVASC) 10 Mg Tab, 10 MG PO DAILY for 30 Days, TAB Prov:KOTACHLOE GURROLA [employer]IST 06/22/19 Reported Medications Clopidogrel Bisulfate* (PLAVIX) 75 Mg Tablet, 75 MG PO DAILY, #30 TAB 12/29/18 Cinacalcet Hcl (SENSIPAR) 60 Mg Tablet, 60 MG PO AC 12/29/18 Metoprolol Tartrate (METOPROLOL TARTRATE) 100 Mg Tablet, 100 MG PO BID 12/29/18 Medications in the ED Sodium Chloride 1,000 ml @ 0 mls/hr Q0M STAT IV ; Start 07/29/19 at 14:49; Stop 07/29/19 at 14:52; Status DC Vancomycin HCl 250 ml @ 250 mls/hr ONCE STAT IV ; Start 07/29/19 at 14:49; Stop 07/29/19 at 15:48; Status UNV Cefepime HCl 50 ml @ 50 mls/hr ONCE STAT IV ; Start 07/29/19 at 14:49; Stop 07/29/19 at 15:48; Status UNV Acetaminophen/ Hydrocodone Bitart 1 ea ONCE ONCE PO ; Start 07/29/19 at 15:00; Stop 07/29/19 at 15:01; Status UNV HORACE MUSTAFA, July 29, 2019 15:01
[2019-07-29 15:12] LABS: BASOPHILS % 0.4 % (0.0-1.0); EOSINOPHILS # (AUTO) 0.2 (0.0-0.4); HEMATOCRIT 30.3 % (38.2-49.6); LYMPHOCYTES # (AUTO) 0.7 (1.0-3.2); LYMPHOCYTES % 6.6 % (18.0-39.1); MEAN CORPUSCULAR HEMOGLOBIN 28.1 pg (28-32); MEAN CORPUSCULAR HGB CONC 29.7 g/dL (31-35); MEAN CORPUSCULAR VOLUME 94.7 fL (81-99); MONOCYTES # (AUTO) 0.9 (0.2-0.8); MONOCYTES % 8.2 % (4.4-11.3); NEUTROPHILS % 82.1 % (38.7-80.0); PLATELET COUNT 227 x10e3/uL (140-360); RED CELL DISTRIBUTION WIDTH 15.3 % (11.7-14.4)
[2019-07-29 15:23] LABS: INR 1.09; PROTHROMBIN TIME 14.8 seconds (11.9-14.5)
[2019-07-29 15:24] LABS: PARTIAL THROMBOPLASTIN TIME 43.8 seconds (23.8-35.5)
[2019-07-29 15:30] LABS: ALBUMIN 2.7 g/dL (3.5-5.0); ALBUMIN/GLOBULIN RATIO 0.5 (0.8-2.0); ANION GAP 16.5 mmol/L (8-16); CALCIUM 9.9 mg/dL (8.4-10.2); CREATININE, SERUM 6.85 mg/dL (0.72-1.25); POTASSIUM 4.5 mmol/L (3.5-5.1)
[2019-07-29 15:37] LABS: CREATINE KINASE MB 1.4 ng/mL (0-5.0)
--- OUTSIDE RECORDS SUMMARY | 2019-07-29 18:14 | XMS REPORT | Clinical Summary ---
Author Author [facility] Organization [facility] Address Unknown Phone Unavailable Care Team Providers Care Sales Operations Associate Name Role Phone PCP Unavailable Allergies No [...] Dates Group [facility] SELF-PAY SELF-PAY xxxxxx 2016- [phone] [address] [place] [address] Guarantor Name Account Relation to Date of Phone Daisy lee Address Type Patient PAVAN HERNANDEZ Personal/F Head of 1955 [address] [facility] (Home) [place], [place] [address] (Self)
--- OUTSIDE RECORDS SUMMARY | 2019-07-29 18:14 | XMS REPORT | Clinical Summary ---
Author Author [facility] Organization [facility] Address Unknown Phone Unavailable Care Team Providers Care Special Education Professor Name Role Phone Zuhair Hyatt MD PCP [...] Added automatically from request for muller lorenzo [id number] Combined forms of age-related cataract of right eye 06/17/2018 End stage renal disease 07/22/2016 Overview: Added automatically from request for muller rgery [id number] Dependence on hemodialysis 07/22/2016 Overview: Added automatically from request for muller rgery [id number] Essential hypertension 12/19/2015 Compression of vein 12/19/2015 End-stage renal disease 12/19/2015 Vascular device, implant, or graft complication 12/08 Dialysis complication 12/19/2015 Encounters Care Team Description Date Type Specialty Manuel Monroe, NIKO Med Refill 07/18/2019 Refill Cardiology Danny Buck MD Claudication (HCC) (Primary Dx) 05/18/2019 Office Visit General Surgery 05/18/2019 Travel Sebas Hi MD bilateral femoral runoff studies [[id number] (CPT)] 05/03/2019 Surgery Procedural Cardiolo Tremayne Kam MD Arriaga, Michael, MD Shehata, Mohamed M., MD Claudication (HCC) (Primary Dx); Arterial insufficiency of lower extremity (HCC); End-stage renal disease (HCC); Dependence on hemodialysis (HCC); Essential hypertension; Type 2 diabetes mellitus with other specified complication, unspecified whether alf insulin use (HCC) 04/29/2019 [facility] Internal Ok dicine - Encounter 05/04/2019 Edy Lugo MD Selective coronary angiography [[id number] (C PT)] 04/22/2019 Surgery Procedural Cardiolo Al Monahan MD Joglekar, Swati, MD Patel, Minh Gilbert, MD Unstable angina (HCC) (Primary Dx) 04/21/2019 [facility] Internal Me dicine - Encounter 04/24/2019 Danny [...] of left ear 11/12/2018 Emergency Emergency Medicine cM Feliciano RN Waitlist Status Update 11/06/2018 Documentation Transplant Rica Poe RN Transplant Organ Offer 11/05/2018 Telephone Transplant Bret Marie MD End stage renal disease (HCC) 11/04/2018 Lab Lab Michell Peck RN End stage renal disease (HCC) (Primary D x) 11/04/2018 Orders Only Transplant Bret Marie MD ESRD (end stage renal disease) (HCC) 11/03/2018 Lab Lab Ilda Adler RN ESRD (end stage renal disease) ([facility]) (Pr imary Dx) 11/02/2018 Orders Only Transplant Neo Moya MD 10/20/2018 Lab Lab Destiney Atkins RN 10/20/2018 Abstract Transplant Hamida Bauer BA 10/04/2018 Documentation Transplant Neo Moya MD 10/03/2018 Lab Lab Sha Robles RN 10/03/2018 Orders Only Transplant Neo Moya MD 09/11/2018 Lab Lab Rica Poe RN 09/06/2018 Documentation Transplant Yfn Amezquita MD ESRD (end stage renal disease) ([facility]) 09/04/2018 Lab Lab Mc Feliciano RN ESRD (end stage renal disease) ([facility]) (Pr imary Dx) 09/04/2018 Orders Only Transplant Michell Garcia MA Procedure 09/02/2018 Documentation Cardiovascular Neo Moya MD ESRD (end stage renal disease) ([facility]) 08/28/2018 Lab Lab Marcellus Cruz RN Transplant Organ Offer 08/28/2018 Telephone Transplant Marcellus Cruz RN ESRD (end stage renal disease) ([facility]) (Pr imary Dx) 08/28/2018 Orders Only Transplant Theresa Mejia MA Malfunction of arteriovenous dialysis fi stula, initial encounter ([facility]) (Primary Dx); End stage renal disease ([facility]); Dependence on hemodialysis ([facility]) 08/27/2018 Prep for Cardiovascular Surgery Theresa Mejia MA Malfunction of arteriovenous dialysis fi stula, initial encounter ([facility]) (Primary Dx); End stage renal disease ([facility]); Dependence on hemodialysis ([facility]) 08/27/2018 Orders Only Cardiovascular Neo Moya MD 08/13/2018 Lab Lab Ilda Adler RN ESRD (end stage renal disease) ([facility]) (Pr imary Dx) 08/10/2018 Orders Only Transplant Rica Poe RN 08/02/2018 Documentation Transplant Rica Mirza MD End stage renal disease ([facility]) 08/01/2018 Lab Lab Michell Peck RN End stage renal disease ([facility]) (Primary D x) 08/01/2018 Orders Only Transplant [...] Comments Vital Sign 118/66 05/04/2019 3:39 PM PRINTING PRESS OPERATOR APPRENTICE Blood Pressure 65 05/04/2019 4:00 PM PRINTING PRESS OPERATOR APPRENTICE Pulse 36.1 C (97 F) 05/04/2019 3:39 PM PRINTING PRESS OPERATOR APPRENTICE Temperature 17 05/04/2019 4:36 AM PRINTING PRESS OPERATOR APPRENTICE Respiratory Rate 99% 05/04/2019 3:39 PM PRINTING PRESS OPERATOR APPRENTICE Oxygen Saturation - - Inhaled Oxygen Concentration 80 kg (176 lb 6.4 oz) 05/02/2019 11:02 AM PRINTING PRESS OPERATOR APPRENTICE Weight 182.9 cm (6') 04/29/2019 5:28 PM PRINTING PRESS OPERATOR APPRENTICE Height 23.92 04/29/2019 5:28 PM PRINTING PRESS OPERATOR APPRENTICE Body Mass Index Plan of Treatment Health Maintenance Due Date Last Done Comments DIABETIC RETINAL EYE EXAM 1957 DIABETIC FOOT EXAM 10/09/1967 URINE MICROALBUMIN 10/09/1967 COLONOSCOPY SCREENING 10/09/2007 SHINGLES VACCINES (#1) 10/09/2007 INFLUENZA VACCINE 10/09/2019 12/27/2015 Implants Device Identifier Shelf Expiration Date Model / Serial / L ot Implanted Type Area Manufactur er [id number] / / Stent Eluting Coronary 3.50mm X Coronary N/A: N/A GALARZA 23mm Rapid-Exchange - [id number] Stents LABOR ATORI Implanted: 04/22/2019 at [facility] (Quantity not on file) 09/04/2021 [id number] / [id number] / [id number] Lens Iol Tecnis Monofocal Zcb 21.0d Intraocula Left: Eye GALARZA - [id number] - [id number] r Lens MEDICAL Implanted: Qty: 1 on 05/07/2018 by Implant OPT Sukhdev Helton MD at [facility] 08/15/2021 [id number] / [id number] / [id number] Lens Iol Tecnis Monofocal Zcb 20.5d Intraocula Right: Eye GALARZA - [id number] - [id number] r Lens MEDICAL Implanted: Qty: 1 on 06/18/2018 by Implant OPT ICS Sukhdev aJmil MD at [facility] 01/07/2021 [id number] System Clsr Sut Meditd 6fr Perclose Surgical N/A: N/A GALARZA Proglide - [id number] Implants; VASCULAR Implanted: 04/22/2019 at [facility] Expanders; [facility] (Quantity not on file) Extenders; Surgical Wires Procedures Comments Procedure Name Priority Date/Time Associated Diag nosis POC GLUCOSE Routine 05/04/2019 2:08 PM PRINTING PRESS OPERATOR APPRENTICE POC GLUCOSE Routine 05/04/2019 8:49 AM PRINTING PRESS OPERATOR APPRENTICE SMEAR REVIEW Routine 05/04/2019 5:10 AM PRINTING PRESS OPERATOR APPRENTICE HC COMPLETE BLD COUNT Routine 05/04/2019 W/AUTO DIFF 5:10 AM PRINTING PRESS OPERATOR APPRENTICE POC GLUCOSE Routine 05/03/2019 10:28 PM PRINTING PRESS OPERATOR APPRENTICE POC GLUCOSE Routine 05/03/2019 6:22 PM PRINTING PRESS OPERATOR APPRENTICE CV AORTOGRAM ABDOMINAL Routine 05/03/2019 AORTA 5:35 PM PRINTING PRESS OPERATOR APPRENTICE POC PANEL Routine 05/03/2019 3:30 PM PRINTING PRESS OPERATOR APPRENTICE ESTIMATED GFR Routine 05/03/2019 3:30 PM PRINTING PRESS OPERATOR APPRENTICE POC GLUCOSE Routine 05/03/2019 8:34 AM PRINTING PRESS OPERATOR APPRENTICE ESTIMATED GFR Routine 05/03/2019 7:25 AM PRINTING PRESS OPERATOR APPRENTICE BASIC METABOLIC PANEL Routine 05/03/2019 7:25 AM PRINTING PRESS OPERATOR APPRENTICE HC COMPLETE BLD COUNT Routine 05/03/2019 W/AUTO DIFF 7:25 AM PRINTING PRESS OPERATOR APPRENTICE POC GLUCOSE Routine 05/02/2019 9:13 PM PRINTING PRESS OPERATOR APPRENTICE POC GLUCOSE Routine 05/02/2019 6:25 PM PRINTING PRESS OPERATOR APPRENTICE HEMODIALYSIS Routine 05/02/2019 5:51 PM PRINTING PRESS OPERATOR APPRENTICE POC GLUCOSE Routine 05/02/2019 7:21 AM PRINTING PRESS OPERATOR APPRENTICE ESTIMATED GFR Routine 05/02/2019 5:11 AM PRINTING PRESS OPERATOR APPRENTICE BASIC METABOLIC PANEL Routine 05/02/2019 5:11 AM PRINTING PRESS OPERATOR APPRENTICE HC COMPLETE BLD COUNT Routine 05/02/2019 W/AUTO DIFF 5:11 AM PRINTING PRESS OPERATOR APPRENTICE POC GLUCOSE Routine 05/01/2019 8:55 PM PRINTING PRESS OPERATOR APPRENTICE POC GLUCOSE Routine 05/01/2019 5:03 PM PRINTING PRESS OPERATOR APPRENTICE POC GLUCOSE Routine 05/01/2019 1:01 PM PRINTING PRESS OPERATOR APPRENTICE POC GLUCOSE Routine 05/01/2019 11:43 AM PRINTING PRESS OPERATOR APPRENTICE US CAROTID DUPLEX Routine 05/01/2019 BILATERAL 10:15 AM PRINTING PRESS OPERATOR APPRENTICE POC GLUCOSE Routine 05/01/2019 7:36 AM PRINTING PRESS OPERATOR APPRENTICE ESTIMATED GFR Routine 05/01/2019 4:00 AM PRINTING PRESS OPERATOR APPRENTICE PHOSPHORUS LEVEL Routine 05/01/2019 4:00 AM PRINTING PRESS OPERATOR APPRENTICE BASIC METABOLIC PANEL Routine 05/01/2019 4:00 AM PRINTING PRESS OPERATOR APPRENTICE POC GLUCOSE Routine 04/30/2019 10:46 PM PRINTING PRESS OPERATOR APPRENTICE POC GLUCOSE Routine 04/30/2019 9:11 PM PRINTING PRESS OPERATOR APPRENTICE POC GLUCOSE Routine 04/30/2019 5:47 PM PRINTING PRESS OPERATOR APPRENTICE POC GLUCOSE Routine 04/30/2019 4:36 PM PRINTING PRESS OPERATOR APPRENTICE HEMODIALYSIS Routine 04/30/2019 2:27 PM PRINTING PRESS OPERATOR APPRENTICE POC GLUCOSE Routine 04/30/2019 1:51 PM PRINTING PRESS OPERATOR APPRENTICE POC GLUCOSE Routine 04/30/2019 12:00 PM PRINTING PRESS OPERATOR APPRENTICE POC GLUCOSE Routine 04/30/2019 11:13 AM PRINTING PRESS OPERATOR APPRENTICE POC GLUCOSE Routine 04/30/2019 8:12 AM PRINTING PRESS OPERATOR APPRENTICE URIC ACID LEVEL Routine 04/30/2019 5:00 AM PRINTING PRESS OPERATOR APPRENTICE LACTIC ACID LEVEL, SEPSIS Routine 04/30/2019 - NOW AND REPEAT 2X EVERY 5:00 AM PRINTING PRESS OPERATOR APPRENTICE 3 HOURS ESTIMATED GFR Routine 04/30/2019 5:00 AM PRINTING PRESS OPERATOR APPRENTICE HEMOGLOBIN A1C Routine 04/30/2019 5:00 AM PRINTING PRESS OPERATOR APPRENTICE LIPID PANEL Routine 04/30/2019 5:00 AM PRINTING PRESS OPERATOR APPRENTICE BASIC METABOLIC PANEL Routine 04/30/2019 5:00 AM PRINTING PRESS OPERATOR APPRENTICE POC GLUCOSE Routine 04/30/2019 4:21 AM PRINTING PRESS OPERATOR APPRENTICE XR FOOT 3 VW BILATERAL Routine 04/30/2019 2:28 AM PRINTING PRESS OPERATOR APPRENTICE LACTIC ACID LEVEL, SEPSIS Timed 04/30/2019 - NOW AND REPEAT 2X EVERY 12:50 AM PRINTING PRESS OPERATOR APPRENTICE 3 HOURS US DUPLEX ARTERIAL LOWER STAT 04/29/2019 EXTREMITY BILATERAL 9:30 PM PRINTING PRESS OPERATOR APPRENTICE US ANKLE BRACHIAL INDEX STAT 04/29/2019 8:00 PM PRINTING PRESS OPERATOR APPRENTICE ECG 12-LEAD STAT 04/29/2019 6:14 PM PRINTING PRESS OPERATOR APPRENTICE ESTIMATED GFR STAT 04/29/2019 5:59 PM PRINTING PRESS OPERATOR APPRENTICE LACTIC ACID LEVEL, SEPSIS STAT 04/29/2019 - NOW AND REPEAT 2X EVERY 5:59 PM PRINTING PRESS OPERATOR APPRENTICE 3 HOURS COMPREHENSIVE METABOLIC STAT 04/29/2019 PANEL 5:59 PM PRINTING PRESS OPERATOR APPRENTICE TYPE AND SCREEN Routine 04/29/2019 5:59 PM PRINTING PRESS OPERATOR APPRENTICE PARTIAL THROMBOPLASTIN STAT 04/29/2019 TIME (PTT) 5:59 PM PRINTING PRESS OPERATOR APPRENTICE PROTHROMBIN TIME WITH INR STAT 04/29/2019 5:59 PM PRINTING PRESS OPERATOR APPRENTICE HC COMPLETE BLD COUNT STAT 04/29/2019 W/AUTO DIFF 5:59 PM PRINTING PRESS OPERATOR APPRENTICE ECG ED PRELIMINARY Routine 04/29/2019 INTERPRETATION 5:43 PM PRINTING PRESS OPERATOR APPRENTICE POC GLUCOSE Routine 04/24/2019 7:20 AM PRINTING PRESS OPERATOR APPRENTICE MAGNESIUM LEVEL Routine 04/24/2019 6:30 AM PRINTING PRESS OPERATOR APPRENTICE ESTIMATED GFR Routine 04/24/2019 6:30 AM PRINTING PRESS OPERATOR APPRENTICE HC COMPLETE BLD COUNT Routine 04/24/2019 W/AUTO DIFF 6:30 AM PRINTING PRESS OPERATOR APPRENTICE BASIC METABOLIC PANEL Routine 04/24/2019 6:30 AM PRINTING PRESS OPERATOR APPRENTICE POC GLUCOSE Routine 04/23/2019 9:01 PM PRINTING PRESS OPERATOR APPRENTICE POC GLUCOSE Routine 04/23/2019 5:48 PM PRINTING PRESS OPERATOR APPRENTICE POC GLUCOSE Routine 04/23/2019 4:48 PM PRINTING PRESS OPERATOR APPRENTICE POC GLUCOSE Routine 04/23/2019 3:46 PM PRINTING PRESS OPERATOR APPRENTICE POC GLUCOSE Routine 04/23/2019 11:22 AM PRINTING PRESS OPERATOR APPRENTICE HC COMPLETE BLD COUNT Routine 04/23/2019 W/AUTO DIFF 8:00 AM PRINTING PRESS OPERATOR APPRENTICE POC GLUCOSE Routine 04/23/2019 7:22 AM PRINTING PRESS OPERATOR APPRENTICE ECG 12-LEAD STAT 04/23/2019 5:20 AM PRINTING PRESS OPERATOR APPRENTICE POC GLUCOSE Routine 04/23/2019 5:10 AM PRINTING PRESS OPERATOR APPRENTICE TROPONIN Routine 04/23/2019 4:00 AM PRINTING PRESS OPERATOR APPRENTICE ESTIMATED GFR Routine 04/23/2019 4:00 AM PRINTING PRESS OPERATOR APPRENTICE MAGNESIUM LEVEL Routine 04/23/2019 4:00 AM PRINTING PRESS OPERATOR APPRENTICE BASIC METABOLIC PANEL Routine 04/23/2019 4:00 AM PRINTING PRESS OPERATOR APPRENTICE POC GLUCOSE Routine 04/23/2019 2:41 AM PRINTING PRESS OPERATOR APPRENTICE POC GLUCOSE Routine 04/22/2019 11:42 PM PRINTING PRESS OPERATOR APPRENTICE POC GLUCOSE Routine 04/22/2019 11:38 PM PRINTING PRESS OPERATOR APPRENTICE POC GLUCOSE Routine 04/22/2019 9:18 PM PRINTING PRESS OPERATOR APPRENTICE POC GLUCOSE Routine 04/22/2019 6:17 PM PRINTING PRESS OPERATOR APPRENTICE POC GLUCOSE Routine 04/22/2019 3:49 PM PRINTING PRESS OPERATOR APPRENTICE CV PCI PERCUTANEOUS Routine 04/22/2019 CARDIAC ANGIOPLASTY 3:09 PM PRINTING PRESS OPERATOR APPRENTICE CV SELECTIVE CORONARY Routine 04/22/2019 ANGIOGRAPHY 3:09 PM PRINTING PRESS OPERATOR APPRENTICE ACTIVATED CLOTTING TIME Routine 04/22/2019 2:42 PM PRINTING PRESS OPERATOR APPRENTICE POC GLUCOSE Routine 04/22/2019 12:25 PM PRINTING PRESS OPERATOR APPRENTICE HEMODIALYSIS Routine 04/22/2019 12:20 PM PRINTING PRESS OPERATOR APPRENTICE POC GLUCOSE Routine 04/22/2019 11:33 AM PRINTING PRESS OPERATOR APPRENTICE POC GLUCOSE Routine 04/22/2019 9:18 AM PRINTING PRESS OPERATOR APPRENTICE POC GLUCOSE Routine 04/22/2019 6:41 AM PRINTING PRESS OPERATOR APPRENTICE ANTI XA, UNFRACTIONATED Routine 04/22/2019 6:40 AM PRINTING PRESS OPERATOR APPRENTICE POC GLUCOSE Routine 04/22/2019 6:19 AM PRINTING PRESS OPERATOR APPRENTICE POC GLUCOSE Routine 04/22/2019 5:05 AM PRINTING PRESS OPERATOR APPRENTICE POC GLUCOSE Routine 04/22/2019 2:15 AM PRINTING PRESS OPERATOR APPRENTICE ESTIMATED GFR Routine 04/22/2019 12:00 AM PRINTING PRESS OPERATOR APPRENTICE ANTI XA, UNFRACTIONATED Routine 04/22/2019 12:00 AM PRINTING PRESS OPERATOR APPRENTICE TROPONIN Routine 04/22/2019 12:00 AM PRINTING PRESS OPERATOR APPRENTICE COMPREHENSIVE METABOLIC Routine 04/22/2019 PANEL 12:00 AM PRINTING PRESS OPERATOR APPRENTICE HC COMPLETE BLD COUNT Routine 04/22/2019 W/AUTO DIFF 12:00 AM PRINTING PRESS OPERATOR APPRENTICE POC GLUCOSE Routine 04/21/2019 9:10 PM PRINTING PRESS OPERATOR APPRENTICE TROPONIN Timed 04/21/2019 4:00 PM PRINTING PRESS OPERATOR APPRENTICE ANTI XA, UNFRACTIONATED STAT 04/21/2019 4:00 PM PRINTING PRESS OPERATOR APPRENTICE PARTIAL THROMBOPLASTIN STAT 04/21/2019 TIME (PTT) 4:00 PM PRINTING PRESS OPERATOR APPRENTICE PROTHROMBIN TIME WITH INR STAT 04/21/2019 4:00 PM PRINTING PRESS OPERATOR APPRENTICE HEPATITIS B SURFACE Routine 04/21/2019 ANTIGEN 1:35 PM PRINTING PRESS OPERATOR APPRENTICE POC GLUCOSE Routine 04/21/2019 12:47 PM PRINTING PRESS OPERATOR APPRENTICE ECG 12-LEAD STAT 04/21/2019 12:32 PM PRINTING PRESS OPERATOR APPRENTICE TROPONIN Timed 04/21/2019 12:31 PM PRINTING PRESS OPERATOR APPRENTICE TTE COMPLETE, WO Routine 04/21/2019 CONTRAST, W DOPPLER 10:35 AM PRINTING PRESS OPERATOR APPRENTICE ([id number]) TROPONIN Timed 04/21/2019 9:12 AM PRINTING PRESS OPERATOR APPRENTICE POC GLUCOSE Routine 04/21/2019 8:09 AM PRINTING PRESS OPERATOR APPRENTICE HEMODIALYSIS Routine 04/21/2019 7:33 AM PRINTING PRESS OPERATOR APPRENTICE POC GLUCOSE Routine 04/21/2019 6:43 AM PRINTING PRESS OPERATOR APPRENTICE POC GLUCOSE Routine 04/21/2019 5:22 AM PRINTING PRESS OPERATOR APPRENTICE TROPONIN Timed 04/21/2019 5:20 AM PRINTING PRESS OPERATOR APPRENTICE POC GLUCOSE Routine 04/21/2019 4:50 AM PRINTING PRESS OPERATOR APPRENTICE ECG ED PRELIMINARY Routine 04/21/2019 INTERPRETATION 3:23 AM PRINTING PRESS OPERATOR APPRENTICE XR CHEST 1 VW PORTABLE STAT 04/21/2019 3:04 AM PRINTING PRESS OPERATOR APPRENTICE ESTIMATED GFR STAT 04/21/2019 2:28 AM PRINTING PRESS OPERATOR APPRENTICE B NATRIURETIC PEPTIDE STAT 04/21/2019 2:28 AM PRINTING PRESS OPERATOR APPRENTICE TROPONIN STAT 04/21/2019 2:28 AM PRINTING PRESS OPERATOR APPRENTICE COMPREHENSIVE METABOLIC STAT 04/21/2019 PANEL 2:28 AM PRINTING PRESS OPERATOR APPRENTICE HC COMPLETE BLD COUNT STAT 04/21/2019 W/AUTO DIFF 2:28 AM PRINTING PRESS OPERATOR APPRENTICE ECG 12-LEAD STAT 04/21/2019 12:34 AM PRINTING PRESS OPERATOR APPRENTICE CT ANGIOGRAM ABDOMINAL Routine 04/20/2019 Nidhi courtney of vein AORTA AND BILATERAL 9:54 AM PRINTING PRESS OPERATOR APPRENTICE 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 Pathologist [facility] POC glucose 294 (H) 65 - 99 mg/dL [facility] Comment: PENTECOSTALISM Bank Representative Name: [facility] Device ID: [id number] Chartable: H Notified RN Specimen Performing Organization Address City/State/Zipcode Ph one Number [facility] DEPARTMENT OF [address] [place] [address] PATHOLOGY [place] [address] HOSPITAL * Smear review (05/04/2019 5:10 AM PRINTING PRESS OPERATOR APPRENTICE) [facility] Platelet slide Gary adequate [facility] Anisocytosis Moderate [facility] Polychromasia Moderate [facility] Ovalocytes Moderate [facility] Enlarged Moderate (A) [facility] Giant platelets Occasional [facility] Specimen Performing Organization Address City/[facility] Ph one Number [facility] DEPARTMENT OF [address] [place] [address] PATHOLOGY AND GENOMIC MEDICINE [address] * CBC with platelet and differential (05/04/2019 5:10 AM PRINTING PRESS OPERATOR APPRENTICE) Only the most recent of 8 results within the time period is included. [facility] WBC 7.48 4.50 - 11.00 k/uL [facility] RBC 3.07 (L) 4.40 - 6.00 m/uL [facility] HGB 9.0 (L) 14.0 - 18.0 g/dL [facility] HCT 29.1 (L) 41.0 - 51.0 % [facility] MCV 94.8 82.0 - 100.0 fL [facility] MCH 29.3 27.0 - 34.0 pg [facility] MCHC 30.9 (L) 31.0 - 37.0 g/dL [facility] RDW - SD 47.1 37.0 - 55.0 fL [facility] MPV 11.7 8.8 - 13.2 fL [facility] Platelet count 172 150 - 400 k/uL [facility] Nucleated RBC 0.00 /100 WBC [facility] Neutrophils 73.8 (H) 39.0 - 69.0 % [facility] Lymphocytes 11.8 (L) 25.0 - 45.0 % [facility] Monocytes 9.0 0.0 - 10.0 % [facility] Eosinophils 4.4 0.0 - 5.0 % [facility] Basophils 0.5 0.0 - 1.0 % [facility] Immature 0.5Comment: "Immature 0.0 - 1.0 % [facility] granulocytes granulocytes" (promyelocytes, METHOD IST myelocytes, metamyelocytes) HOSPITAL Specimen Blood Performing Organization Address City/State/Zipcode Ph one Number [facility] DEPARTMENT OF [address] [place] [address] PATHOLOGY AND GENOMIC MEDICINE [facility] [address] * Cv invasive peripheral vascular procedure (05/03/2019 5:35 PM PRINTING PRESS OPERATOR APPRENTICE) Specimen Narrative Performed At [facility]: None. PREOPERATIVE DIAGNOSES: 1. Occlusion and/or stenosis [...] standard 18- gauge AMC needle. A short 5-Gambian arterial sheath was utilized for access . Next, using a 4-Gambian Contra catheter and a 0.035 [place] exchange wire, the r ight iliac artery [...] his ongoing pain, he will likely require [id number] amputation as there is s ufficient flow to facilitate wound healing. I have already communicated this to the patient's attending sales service assistant, Dr. Angel Lugo. Performing Organization Address City/[facility] [place] one Number [facility] [address] [place] [address] * Estimated GFR (05/03/2019 3:30 PM PRINTING PRESS OPERATOR APPRENTICE) Only the most recent of 10 results within the time period is included. Estimated GFR 10 (A) mL/min/1.73 m2 [facility] Comment: PENTECOSTALISM [facility] Interpretation G1 >=90 Normal or high G2 [...] in 2014. Specimen Blood Performing Organization Address [facility] [place] one Number [facility] DEPARTMENT OF [address] [place] [address] PATHOLOGY AND GENOMIC MEDICINE [address] * POC panel (05/03/2019 3:30 PM PRINTING PRESS OPERATOR APPRENTICE) Pathologist [facility] POC sodium 138 135 - 148 mmol/L [facility] POC potassium 4.1 3.5 - 5.0 mmol/L [facility] POC chloride 96 (L) 99 - 109 mmol/L [facility] POC CO2 31 24 - 31 mmol/L [facility] POC glucose 182 (H) 65 - 99 mg/dL [facility] POC BUN 21 8 - 24 mg/dL [facility] POC creatinine 6.5 (H) 0.7 - 1.2 mg/dl [facility] POC hematocrit 31 (L) 41 - 51 % [facility] POC anion gap 16 8 - 20 mmol/L [facility] Comment: PENTECOSTALISM Bank Representative Name: [facility] Sandi Robin Device ID: [id number] Specimen Performing Organization Address [facility] [place] one Number [facility] DEPARTMENT OF [address] [place] [address] PATHOLOGY AND GENOMIC MEDICINE [address] * Basic metabolic panel (05/03/2019 7:25 AM PRINTING PRESS OPERATOR APPRENTICE) Only the most recent of 6 results within the time period is included. Sodium 138 135 - 148 mEq/L [facility] Potassium 5.1 (H) 3.5 - 5.0 mEq/L [facility] Chloride 96 (L) 98 - 112 mEq/L [facility] CO2 23 (L) 24 - 31 mEq/L [facility] Anion gap 19@ANIO (H) 7 - 15 mEq/L [facility] BUN 53 (H) 8 - 23 mg/dL [facility] Creatinine 11.08 (H) 0.70 - 1.20 mg/dL [facility] Glucose 228 (H) 65 - 99 mg/dL [facility] Calcium 8.4 (L) 8.8 - 10.2 mg/dL [facility] Specimen Plasma specimen Performing Organization Address [facility]/State[facility] one Number [facility] DEPARTMENT OF [address] [place] [address] PATHOLOGY AND GENOMIC MEDICINE [address] * Us carotid duplex (05/01/2019 10:15 AM PRINTING PRESS OPERATOR APPRENTICE) Specimen Narrative Performed At [facility] Vascular U ltrasound Laboratory Carotid A rtery Duplex Report [id number] [facility] [address], [place] [address] For senior quality assurance specialist purposes, the cat egorization of the degree of the stenosis of this exam is based on criteria descr ibed in the IAC carotid stenosis grading white paper( www.intersocietal.org/Vasc ular) and Azam, E.Jayne., Bautista, C.B., et al. Carotid artery stenosis: christensen-scale and Doppler US diagnosis--Society of Radiologists in Ultrasound Consensus Conference. Radiol ogy. 2003 Jan; 229(2):340-6. Pat.Name: DUONG HERNANDEZ Pat.ID: [id number] .Date: 05/01/2019 Refer.MD: ANGEL LUGO MD Exam Time: 9:25:00 AM Study Type:Carotid Height: 72in Weight: 186lb BSA: 2.07 m2 Age: 8 1955,63Y Sex: MALE Sonogrphr: Charleen Pathak RVT Pat. Stat.:Inpatient Room: [address] Tape Vol: RF, CPT - 4: 12729 Echo Event ID:[id number] Order ID: [id number] Reason for Study:Evaluate for possible carotid artery [...] 1. <50% stenosis of the bulb and diversity intern al carotis artery, bilaterally. 2. <50% [...] Radiology Results In - 05/01/2019 4:30 PM [facility] Vascular Ultrasound Laboratory Carotid Artery Duplex Report [address] [place] [address] For senior quality assurance specialist purposes, the categorization of the degree of the stenosis of this exam is based on criteria described in the IAC carotid stenosis grading white paper( www.intersocietal.org/Vascular) and Kimberly Nascimento., Angelia Baum., et al. Carotid artery stenosis: christensen-scale and Doppler US diagnosis--Society of Radiologists in Ultrasound Consensus Conference. Radiology. 2003 Nov; 229(2):340-6. Pat.Name: DUONG HERNANDEZ Pat.ID: [id number] .Date: 05/01/2019 Refer.MD: ANGEL LUGO MD Exam Time: 9:25:00 AM Study Type:Carotid Height: 72in Weight: 186lb BSA: 2.07 m2 Age: 8 1955,63Y Sex: MALE Sonogrphr: Charleen Pathak RVT Pat. Stat.:Inpatient Room: [address] Tape Vol: RF, CPT - 4: 80163 Echo Event ID:[id number] Order ID: [id number] Reason for Study:Evaluate for possible carotid artery [...] Address City/State/Zipcode Ph one Number [facility] [address] [place] [address] * Phosphorus level (05/01/2019 4:00 AM PRINTING PRESS OPERATOR APPRENTICE) Phosphorus 3.8 2.4 - 4.5 mg/dL [facility] Specimen Plasma specimen Performing Organization Address City/State/[facility] Ph one Number [facility] DEPARTMENT OF [address] [place] [address] PATHOLOGY AND GENOMIC MEDICINE [address] * Lactic acid level, SEPSIS - Now and repeat 2x every 3 hours (04/30/2019 5:00 AM 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 Lactic acid 2.1 0.5 - 2.2 mmol/L [facility] Specimen Plasma specimen Performing Organization Address City/[facility] Ph one Number [facility] [place] [address] PATHOLOGY AND GENOMIC MEDICINE [address] * Uric acid level (04/30/2019 5:00 AM PRINTING PRESS OPERATOR APPRENTICE) Uric acid 4.5 3.4 - 7.0 mg/dL [facility] Specimen Plasma specimen Performing Organization Address City/[facility] Ph one Number [facility] DEPARTMENT OF [address] [place] [address] PATHOLOGY AND GENOMIC MEDICINE [address] * Hemoglobin A1c (04/30/2019 5:00 AM PRINTING PRESS OPERATOR APPRENTICE) Hemoglobin A1C 8.4 (H) 4.0 - 5.6 % [facility] Comment: PENTECOSTALISM HbA1c cutoffs for diagnosing HOSPITAL diabetes: 4.0% - 5.6% = normal 5.7% - 6.4% = increased risk for diabetes (prediabetes)9 >=6.5% = diabetes9 Goals for glycemic control (ADA 2016) < 7.0% Target for non adults with diabetes. More or less stringent targets may be appropriate for individual patients. <7.5% Target for Children and adolescents with type 1 diabetes. Specimen Blood Performing Organization Address City/[facility] Ph one Number [facility] DEPARTMENT OF [address] [place] [address] PATHOLOGY AND GENOMIC MEDICINE [address] * Lipid panel (04/30/2019 5:00 AM PRINTING PRESS OPERATOR APPRENTICE) Cholesterol 154 <200 mg/dL [facility] Triglycerides 130 <150 mg/dL [facility] HDL cholesterol 40 >40 mg/dL [facility] LDL cholesterol 91Comment: Result obtained by <100 mg/dL [facility] direct LDL measurement [facility] Lipid panel SeeBelow [facility] interpretation Comment: PENTECOSTALISM Total Cholesterol (mg/dL) [facility] <200 Desirable 200-239 Borderline-high >=240 High Triglycerides [...] mg/dL) Specimen Plasma specimen Performing Organization Address City/State/[facility] Ph one Number [facility] DEPARTMENT OF [address] [place] [address] PATHOLOGY AND GENOMIC MEDICINE [address] * XR Foot 3 Vw Bilateral (04/30/2019 2:28 AM PRINTING PRESS OPERATOR APPRENTICE) Specimen Narrative Performed At EXAMINATION: XR FOOT 3 VW BILATERAL [facility] CLINICAL HISTORY: 63 years Male Os teomyelitis suspected foot swelling diabetic COMPARISON: None available at this ti ky. IMPRESSION: Patient has undergone partial indentati on of the left first phalanx. No evidence of osteomyelitis in either foot. No evidence of fracture or dislocation bilaterally The bones are demineralized bilaterally Joint space narrowing in the first thro ugh fifth tarsometatarsal joints bilaterally No suspicious focal blastic or lytic le sions No radiopaque foreign bodies are presen t. [id number] Procedure Note Hm Interface, Radiology Results Incoming - 04/30/2019 7:29 AM PRINTING PRESS OPERATOR APPRENTICE EXAMINATION: XR FOOT 3 VW BILATERAL CLINICAL [...] lesions No radiopaque foreign bodies are present. [id number] Performing Organization Address City/State/Zipcode Ph one Number [facility] [address] [place] [address] * duplex arterial lower extremity (04/29/2019 9:30 PM PRINTING PRESS OPERATOR APPRENTICE) Specimen Narrative Performed At [facility] Vascular U ltrasound Laboratory Lower Extremity Arterial Duplex Report [address] [facility], [place] [address], [place] [address] Pat.Name: DUONG HERNANDEZ Pat.ID: [id number] .Date: 04/29/2019 Refer.MD: TREMAYNE CALLE MD Exam Time: 7:34:00 PM Study Type:LE Arterial Height: 72in BSA: 2.01 m2 Age: 8 1955,63Y Sex: MALE Sonogrphr: CHELSEA Castellon Pat . Stat.:Inpatient Room: ED34 Tape Vol: VM, CPT - 4: 06482 Echo Event ID:[id number] Order ID: [id number] Reason for Study:Leg pain and discolora tion [...] disturbed colorflow in the profunda artery, proximal equipment coordinator ior artery, mid anterior tibial, and distal [...] PHYSICIAN INTERPRETATION: Arterial duplex examination of bilate [facility] lower extremities demonstrates bilateral multi-level jaxson rial occlusive disease. FINDINGS: MEASUREMENTS: DOPPLER Right SLPS prox SLPS prox PSV 113 cm/s Right SFA Mid [...] Prox Peroneal Prox P 19 cm/s Right STONE RUBBER Mid STONE RUBBER Mid PSV 82.8 cm/s Tibial Post Right Tibial Po 60 deg Right Tibial Po 60 deg Right STONE RUBBER Prox STONE RUBBER Prox PSV 166 cm/s STONE RUBBER Prox PSV 80 cm/s Left SLPS Dist SLPS Dist PSV 58.7 cm/s Left SFA Dist [...] cm/s VERONICA Prox PSV 142 cm/s Right SLPS Dist SLPS Dist PSV 114 cm/s Right Profunda Profunda PSV 104 cm/s Right SFA Dist SFA Dist PSV 97 cm/s Right STONE RUBBER Prox 1 STONE RUBBER Prox 1 PSV 151 cm/s Right STONE RUBBER Prox 2 STONE RUBBER Prox 2 PSV 166 cm/s Right STONE RUBBER Mid 2 STONE RUBBER Mid 2 PSV 79 cm/s Right STONE RUBBER Distal STONE RUBBER Distal PSV 233 cm/s Right VERONICA Prox VERONICA Prox PSV 79 cm/s Right VERONICA Mid VERONICA Mid PSV 103 cm/s Right VERONICA Dist 1 VERONICA Dist 1 PSV 77 cm/s Left Profunda Profunda PSV 122 cm/s Left Profunda 1 Profunda 1 PSV 142 cm/s Left Pop Dist Pop Dist PSV 69 cm/s Left Pop Dist 1 Pop Dist 1 PSV 61 cm/s Left STONE RUBBER Prox STONE RUBBER Prox PSV 189 cm/s Left STONE RUBBER Mid STONE RUBBER Mid PSV 34 cm/s Left STONE RUBBER Distal STONE RUBBER Distal PSV 15 cm/s Left VERONICA Mid [...] Radiology Results In - 04/29/2019 11:37 PM [facility] Vascular Ultrasound Laboratory Lower Extremity Arterial Duplex Report [address] [place] [address] Pat.Name: DUONG HERNANDEZ Pat.ID: [id number] .Date: 04/29/2019 Refer.MD: TREMAYNE CALLE MD Exam Time: 7:34:00 PM Study Type:LE Arterial Height: 72in BSA: 2.01 m2 Age: 8 1955,63Y Sex: MALE Sonogrphr: CHELSEA Castellon Pat. Stat.:Inpatient Room: ED34 Tape Vol: VM, CPT - 4: 79618 Echo Event ID:[id number] Order ID: [id number] Reason for Study:Leg pain and discoloration bilateraly. [...] arterial occlusive disease. FINDINGS: MEASUREMENTS: DOPPLER Right SLPS prox SLPS prox PSV 113 cm/s Right SFA Mid [...] Prox Peroneal Prox P 19 cm/s Right STONE RUBBER Mid STONE RUBBER Mid PSV 82.8 cm/s Tibial Post Right Tibial Po 60 deg Right Tibial Po 60 deg Right STONE RUBBER Prox STONE RUBBER Prox PSV 166 cm/s STONE RUBBER Prox PSV 80 cm/s Left SLPS Dist SLPS Dist PSV 58.7 cm/s Left SFA Dist [...] cm/s VERONICA Prox PSV 142 cm/s Right SLPS Dist SLPS Dist PSV 114 cm/s Right Profunda Profunda PSV 104 cm/s Right SFA Dist SFA Dist PSV 97 cm/s Right STONE RUBBER Prox 1 STONE RUBBER Prox 1 PSV 151 cm/s Right STONE RUBBER Prox 2 STONE RUBBER Prox 2 PSV 166 cm/s Right STONE RUBBER Mid 2 STONE RUBBER Mid 2 PSV 79 cm/s Right STONE RUBBER Distal STONE RUBBER Distal PSV 233 cm/s Right VERONICA Prox VERONICA Prox PSV 79 cm/s Right VERONICA Mid VERONICA Mid PSV 103 cm/s Right VERONICA Dist 1 VERONICA Dist 1 PSV 77 cm/s Left Profunda Profunda PSV 122 cm/s Left Profunda 1 Profunda 1 PSV 142 cm/s Left Pop Dist Pop Dist PSV 69 cm/s Left Pop Dist 1 Pop Dist 1 PSV 61 cm/s Left STONE RUBBER Prox STONE RUBBER Prox PSV 189 cm/s Left STONE RUBBER Mid STONE RUBBER Mid PSV 34 cm/s Left STONE RUBBER Distal STONE RUBBER Distal PSV 15 cm/s Left VERONICA Mid [...] Carlos Riddle MD, RPVI Performing Organization Address City/State/[facility] Ph one Number [facility] [address] [place] [address] * Us ankle brachial index (04/29/2019 8:00 PM PRINTING PRESS OPERATOR APPRENTICE) Specimen Narrative Performed At [facility] Vascular D iagnostic Laboratory Physiologi c Arterial Leg Report [address] [place] [address] Pat.Name: DUONG HERNANDEZ Pat.ID: [id number] St.Date: 04/29/2019 Refer.MD: TREMAYNE CALLE MD Exam Time: 7:13:00 PM Study Type:Physiologic Leg H eight: 72in Weight: 175lb BSA: 2.01 m2 Age: 8 1955,63Y Sex: MALE Sonogrphr: CHELSEA Castellon, Cindy Abdalla RVT Pat. Stat.:Inpatient Room: ED34 Tape Vol: VM, CPT - 4: 24253 Echo Event ID:[id number] Order ID: [id number] Reason for Study:Leg pain and discolora tion [...] in the right fall s into the mwsnebvg-sg-eyzgsq category. 4. Toe/brachial index in the left [...] in the right fall s into the eqvqqqzm-hp-tamidn category. 4. 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 FINDINGS: Signed 04/29/2019 11:20 PM J Carlos Riddle MD, RPVI Procedure Note Interface, Radiology Results In - 04/29/2019 11:20 PM PRINTING PRESS OPERATOR APPRENTICE Vascular Diagnostic Laboratory Physiologic Arterial Leg Report [address] [address] Pat.Name: DUONG HERNANDEZ Pat.ID: [id number] .Date: 04/29/2019 Refer.MD: TREMAYNE CALLE MD Exam Time: 7:13:00 PM Study Type:Physiologic Leg Height: 72in Weight: 175lb BSA: 2.01 m2 Age: 8 1955,63Y Sex: MALE Sonogrphr: CHELSEA Castellon, Cindy Abdalla RVT Pat. Stat.:Inpatient Room: ED34 Tape Vol: VM, CPT - 4: 99358 Echo Event ID:[id number] Order ID: [id number] Reason for Study:Leg pain and discoloration bilateraly. [...] index in the right falls into the jruznsdh-kx-lwriok category. 4. Toe/brachial index in the left [...] index in the right falls into the lljabtwg-ye-xdkrgp category. 4. Toe/brachial index in the left was un able to be obtained due to amputation. FINDINGS: Signed 04/29/2019 11:20 PM J Carlos Riddle MD, RPVI Performing Organization Address [facility] one Number [facility] [address] [place] [address] * ECG 12 lead (04/29/2019 6:14 PM PRINTING PRESS OPERATOR APPRENTICE) Only the most recent of 4 results within the time period is included. Ventricular 66 [facility] MUSE rate Atrial rate 66 [facility] MUSE [place] interval 184 [facility] M[facility] QRSD interval 142 [...] is n ot available. Performing Organization Address [facility] one Number [facility] [address] [place] [address] * Partial thromboplastin time, activated (04/29/2019 5:59 PM PRINTING PRESS OPERATOR APPRENTICE) Only the most recent of 2 results within the time period is included. [facility] PTT 38.4 (H) 23.0 - 36.0 sec [facility] Comment: PENTECOSTALISM PTT therapeutic range for HOSPITAL unfractionated heparin is 61.0-112.0 seconds which corresponds to Anti-Xa 0.3-0.7 U/ml. Specimen Blood Performing Organization Address City/[facility] one Number [facility] DEPARTMENT OF [address] [place] [address] PATHOLOGY AND GENOMIC MEDICINE [address] * Prothrombin time with INR (04/29/2019 5:59 PM PRINTING PRESS OPERATOR APPRENTICE) Only the most recent of 2 results within the time period is included. Pathologist [facility] Prothrombin 14.3 11.5 - 14.5 sec [facility] INR 1.1 [facility] Comment: PENTECOSTALISM The International Normalized HOSPITAL Ratio (INR) is a therapeutic monitoring tool for patients who are stable on oral anticoagulant therapy. An INR of 2.0-3.0 is suggested for deep vein thrombosis/pulmonary embolism. Specimen Blood Performing Organization Address [facility] one Number [facility] DEPARTMENT OF [address] [place] [address] PATHOLOGY AND GENOMIC MEDICINE [address] * Type and screen (04/29/2019 5:59 PM PRINTING PRESS OPERATOR APPRENTICE) Pathologist [facility] ABO grouping A [facility] Rh type POS [facility] Antibody screen NEG [facility] (gel) [facility] Specimen Blood Performing Organization Address [facility] one Number [facility] DEPARTMENT OF [address] [place] [address] PATHOLOGY AND GENOMIC MEDICINE [address] * Comprehensive metabolic panel (04/29/2019 5:59 PM 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 Sodium 142 135 - 148 mEq/L [facility] Potassium 4.8 3.5 - 5.0 mEq/L [facility] Chloride 93 (L) 98 - 112 mEq/L [facility] CO2 30 24 - 31 mEq/L [facility] Anion gap 19@ANIO (H) 7 - 15 mEq/L [facility] BUN 45 (H) 8 - 23 mg/dL [facility] Creatinine 9.78 (H) 0.70 - 1.20 mg/dL [facility] Glucose 285 (H) 65 - 99 mg/dL [facility] Calcium 7.8 (L) 8.8 - 10.2 mg/dL [facility] Protein 7.7 6.3 - 8.3 g/dL [facility] Comment: PENTECOSTALISM Pekayxz5093.6-7.0 g/dL HOSPITAL 1 kzwc3773.4-7.6 g/dL 7 months-1bkui008.1-7.3 g/dL 1-2 ozzao445.6-7.5 g/dL >3 .0-8.0 g/dL 18-8110741.3-8.3 g/dL Albumin 3.4 (L) 3.5 - 5.0 g/dL [facility] A/G ratio 0.8 0.7 - 3.8 [facility] Alkaline 128 40 - 129 U/L [facility] phosphatase [facility] AST 19 10 - 50 U/L [facility] ALT 8 5 - 50 U/L [facility] Total bilirubin 0.5 0.0 - 1.2 mg/dL [facility] Specimen Plasma specimen Performing Organization Address City/State/[facility] Ph one Number [facility] DEPARTMENT OF [address] [place] [address] PATHOLOGY AND GENOMIC MEDICINE [address] * ECG ED Preliminary Interpretation - Not an Order (04/29/2019 5:43 PM PRINTING PRESS OPERATOR APPRENTICE) Only the most recent of 2 results within the time period is included. Narrative Performed At Tremayne Calle MD 05/04/2019 5:28 PM ECG ED Preliminary Interpretation - Not an Order Performed by: Tremayne Calle MD Authorized by: Tremayne Calle MD ECG reviewed by ED Physician in the abs ence of a sales service assistant: yes Interpretation: Interpretation: abnormal Rate: ECG rate: 66 ECG rate assessment: normal Rhythm: Rhythm: sinus rhythm Ectopy: Ectopy: none QRS: QRS axis: Left QRS intervals: Normal Conduction: Conduction: abnormal Abnormal conduction: complete RBBB ST segments: ST segments: Normal T waves: T waves: inverted Inverted: V2 Other findings: Other findings: LAE * Magnesium level (04/24/2019 6:30 AM PRINTING PRESS OPERATOR APPRENTICE) Only the most recent of 2 results within the time period is included. Magnesium 2.0 1.6 - 2.4 mg/dL [facility] Specimen Plasma specimen Performing Organization Address City/State/Zipcode Ph one Number [facility] DEPARTMENT OF [address] [place] [address] PATHOLOGY AND GENOMIC MEDICINE [address] * Troponin (04/23/2019 4:00 AM PRINTING PRESS OPERATOR APPRENTICE) Only the most recent of 7 results within the time period is included. [facility] Sofy Troponin 0.662 (H) 0.000 - 0.040 ng/mL [facility] Comment: PENTECOSTALISM In patients suspected of HOSPITAL having a [...] Performing Organization Address City/State/Zipcode Ph one Number [facility] DEPARTMENT OF [address] [place] [address] PATHOLOGY AND GENOMIC MEDICINE [address] * chemical laboratory technician procedure (04/22/2019 3:09 PM PRINTING PRESS OPERATOR APPRENTICE) Specimen Addenda Addendum by Edy Lugo MD on 04/26/2019 5:10 PM Moderate conscious sedation was administered from 14:24 ( time) with physician monitoring of patient consciousness, O2 saturation, BP, HR for a total duration of [address] Lugo was present and scrubbed in for entire duration of case. PROCEDURES PERFORMED Selective coronary angiography PCI of LAD CAN LABELER Edy Lugo MD FELLOW Cath fellow- Marie [...] was pre-dilated with a 3.25 x 10mm [place] cutting balloon at 8 elodia and stented [...] PERFORMED Selective coronary angiography PCI of LAD CAN LABELER Edy Lugo MD FELLOW Cath fellow- Marie [...] was pre-dilated with a 3.25 x 10mm [place] cutting balloon at 8 elodia and stented [...] Transferred in stable condition Performing Organization Address [facility] one Number SYN[facility] [address] [place] [address] * Activated clotting time (04/22/2019 2:42 PM PRINTING PRESS OPERATOR APPRENTICE) [facility] Activated 436 (H) 96 - 152 sec [facility] clotting time Comment: PENTECOSTALISM Bank Representative Name: [facility] Device ID: [id number] Specimen Performing Organization Address [facility] one Number [facility] DEPARTMENT OF [address] [place] [address] PATHOLOGY AND [facility] MEDICINE [address] * Anti Xa, unfractionated (04/22/2019 6:40 AM 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 [facility] Anti Xa, 0.29 (L)Comment: Therapeutic 0.30 - 0.70 U/mL [facility] unfractionated Range: 0.30 - 0.70 U/mL [facility] Specimen Blood Performing Organization Address [facility] one Number [facility] DEPARTMENT OF [address] [place] [address] PATH[address] * Hepatitis B surface antigen (04/21/2019 1:35 PM PRINTING PRESS OPERATOR APPRENTICE) [facility] Hepatitis B Non-reactive Non-reactive [facility] surface Ag [facility] Specimen Blood Performing Organization Address [facility] one Number [facility] DEPARTMENT OF [address] [place] [address] PATHOLOGY [facility] MEDICINE [address] * Echocardiogram complete w contrast and 3D if needed (04/21/2019 10:35 AM PRINTING PRESS OPERATOR APPRENTICE) Specimen Narrative Performed At [facility] Echo cardiography Report [address] [place] [address] Pat.Name: DUONG HERNANDEZ Pat.ID: [id number] .Date: 04/21/2019 Refer.MD: MINH BOBBY MD Exam Time: 9:40:00 AM Study Type:Routine Echo Height: 72in Weight: 184lb BSA: 2.06 m2 Age: 8 1955,63Y Sex: MALE BP: 141/79 HR: 58 bpm Sonogrphr: Loly Kennedy OTILIO Pat. Stat.:Inpatient Room: ED25 Study Status:Final Echo Event ID:[id number] Order ID: [id number] Reason for Study:Type II DC History / Clinical:Diabetes, Hypertensi on, Peripheral Vascular [...] TV: No structural TV abnormali ties noted. Okaes: Diastolic dysfunction Grade II (Moderate): Impaired relaxation with elevate d LV filling pressures. Other: Insufficient TR jet to christina mate PA systolic pressure. MEASUREMENTS: 2D Parasternal Long Merlin Ao An 2.4 cm LVPWd 1.1 cm [...] Radiology Results In - 04/21/2019 4:31 PM PRINTING PRESS OPERATOR APPRENTICE Echocardiography Report [address] [place] [address] Pat.Name: DUONG HERNANDEZ Pat.ID: [id number] .Date: 04/21/2019 Refer.MD: MINH BOBBY MD Exam Time: 9:40:00 AM Study Type:Routine Echo Height: 72in Weight: 184lb BSA: 2.06 m2 Age: 8 1955,63Y Sex: MALE BP: 141/79 HR: 58 bpm Sonogrphr: Loly Kennedy RDCS Pat. Stat.:Inpatient Room: ED25 Study Status:Final Echo Event ID:[id number] Order ID: [id number] Reason for Study:Type II DC History / Clinical:Diabetes, Hypertension, Peripheral Vascular Disease, [...] PA systolic pressure. MEASUREMENTS: 2D Parasternal Long Merlin Ao An 2.4 cm LVPWd 1.1 cm [...] PM Jim Liang M.D. Performing Organization Address [facility] one Number [facility] [address] [place] [address] * XR Chest 1 Vw Portable (04/21/2019 3:04 AM PRINTING PRESS OPERATOR APPRENTICE) Specimen Narrative Performed At Examination: XR CHEST [...] atelectasis. Otherwise no acute infiltrate identifie d. [facility]-[id number] Procedure Note Interface, Radiology Results Incoming - 04/21/2019 3:09 AM PRINTING PRESS OPERATOR APPRENTICE Examination: XR CHEST 1 VW PORTABLE Clinical [...] minimal atelectasis. Otherwise no acute infiltrate identified. [facility]-[id number] Performing Organization Address [facility] one Number [facility] [address] [place] [address] * B natriuretic peptide (04/21/2019 2:28 AM PRINTING PRESS OPERATOR APPRENTICE) BNP 1,151 (H) 0 - 100 pg/mL [facility] Specimen Blood Narrative Performed At ___GLU_ results called to and read back by _SUZY CRANDALL\\ ROBINA(name/location) [facility] DEPARTMENT OF at __ 04/21/2019 03:48 (date/time) by __NICKY. PATHOLOGY AND GENOMIC MEDICINE Performing Organization Address City/State/Zipcode Ph one Number [facility] DEPARTMENT OF [address] [place] [address] PATHOLOGY AND GENOMIC MEDICINE [address] * CTA Abdominal Aorta And Bilateral Iliofemoral Runoff W Wo Contrast (04/20/2019 9:54 AM PRINTING PRESS OPERATOR APPRENTICE) Specimen Narrative Performed At EXAMINATION: CT ANGIOGRAM [...] also present throughout th e peroneal artery. [facility]-[id number] Procedure Note Interface, Radiology Results Incoming - 04/20/2019 11:02 AM PRINTING PRESS OPERATOR APPRENTICE EXAMINATION: CT ANGIOGRAM ABDOMINAL AORTA AND BILATERAL [...] are also present throughout the peroneal artery. [facility]-[id number] Performing Organization Address City/State/Zipcode Ph one Number [facility] [address] [place] [address] * Single antigen beads (01/11/2019 7:10 AM PRINTING PRESS OPERATOR APPRENTICE) Only the most recent of 4 results within the time period is included. [facility] serum ID [id number] [facility] SAB serum 01/11/2019 07:10 AM [facility] collection [facility] SAB class I B37 [facility] antibody [facility] SAB cPRA class 2 [facility] SAB class II Negative [facility] SAB cPRA class 0 [facility] Single antigen See link below for PDF Lab [facility] beads Report [facility] Specimen Blood Performing Organization Address City/State/Zipcode Ph one Number [facility] [facility] DEPARTMENT OF [address] [place] [address] PATHOLOGY AND GENOMIC MEDICINE [address] * Splint Application (01/05/2019 9:09 PM [...] discussed: No treatmen t and delayed treatment Davey protocol: Procedure explained and questions ans wered [...] 9:[address] om by Venkat Palacio. [facility] read-back obtained. [facility] source Peripheral Blood [facility] donor UNJERROD, [id number] [facility] full name [facility] donor [facility] current [id number] [facility] serum ID [facility] serum 10/14/2018 11:28 AM [facility] collection [facility] flow XM T Negative [facility] cell result, [facility] [place] flow XM B Negative [facility] cell result, [facility] [place] HLA crossmatch See link below for PDF Lab [facility] Report [facility] Specimen Blood Performing Organization Address City/State/Zipcode Ph one Number [facility] DEPARTMENT OF [address] [place] [id number] PATHOLOGY AND GENOMIC MEDICINE [address] [address] [facility] after 07/28/2018 Insurance Type Payer Benefit Subscriber ID Effective Phone Address Plan / Dates Group Medicare MEDICARE MEDICARE xxxxxxxxxxx [id number] [facility], PART A AND resent [place] Advance Directives For more information, please contact: [phone] Patient Take Down Inspector Explanation Type Date Recorded Advance Directives, 05/05/2015 3:51 PM Living Will and Medical Power of Acquisition Lead Advance Directives, 05/05/2015 5:58 PM Living Will and Medical Power of Acquisition Lead Directive Advance Directives, 01/29/2018 10:58 AM Living Will and Medical Power of Acquisition Lead Advance Directives, 11/28/2016 7:44 AM Living Will and Medical Power of Acquisition Lead Advance Directives, 07/26/2018 10:32 AM Living Will and Medical Power of Acquisition Lead
--- OUTSIDE RECORDS SUMMARY | 2019-07-29 18:15 | XMS REPORT ---
Author Author [facility] t Organization [facility] Address [address] [facility] [address] [place] [address] Phone Unavailable Care Team Providers Care Rope Cutter Name Role Phone NONSTAFF PCP Unavailable Fer WELL SURVEYING ENGINEER-CAngelita Attphys ZONIA BURNETT Attphys Unavailable Mary Glover MD Attphys Carmen Calle MD Tremayne Attphys Duong Shepherd MD Attphys Gómez Dietz MD Attphys Kolton GREEN, Tricia Mullen Attphys Reuben GREEN, Duong Melendez Attphys Lyndon GREEN, Maria R Attphys Selvin GREEN, Ofelia Wilkinson Attphys [phone] Mylene GREEN, Mary Snow Attphys Elmer NAGEL, Elizabeth Attphys Unavailable Anne NAGEL, Yajaira Attphys Unavailable Griffin GREEN, Italia Larson Attphys Carmelo DO, Miguel Morales Attphys [phone] ANGELITA ESQUIVEL Attphys Unavailable Jean Marie DO, Akosua Sullivan Attphys Jodie RN, Mc Attphys Unavailable Lui ALMONTE, Rica Attphys Unavailable Cynthia GREEN, Angelita Queen Attphys Liv ALMONTE, Michell Attphys Unavailable Nayely RN, Ilda Attphys Unavailable Milly RN, Destiney Attphys Unavailable Lizette LANDAVERDE, Hamida Attphys Unavailable Margaret ALMONTE, Sha Attphys Unavailable Bia GREEN, Yfn Attphys Radha NAGEL, Michell Attphys Unavailable Nancy ALMONTE, Marcellus Attphys Unavailable Julissa Vogel MA, Theresa Attphys Unavailable Yuki GREEN, Sandi Strauss Attphys Elmer ALMONTE, Chelsie Julienphys Unavailable ZONIA BURNETT Admphys Unavailable ALLISON, MOHAMED Admphys Unavailable MINH BOBBY Admphys Unavailable ANGELITA ESQUIVEL Admphyvik Unavailable Payers Payer Name Policy Type Policy Number Effective Date Expiration Date S poly MEDICAREMEDICARE PART A AND Bxxxxxxxxxxx2003-Present[place] 2003 00:00:00 [facility] Medicare A & B [id number] 2003 00:00:00 [facility] Medicare A & B [id number] 2003 00:00:00 [facility] Problems Condition Name Condition Details Condition Category Status Onset Date Resolution Date Last Treatment Date Treating Clinician Comments Source Claudication Claudication Disease Active 2019-04-30 00:00:00 Ryne Thrasher T2DM (type 2 diabetes mellitus) T2DM (type 2 diabetes mellitus) Dis ease Active 2019-04-30 00:00:00 Michele [facility] Unstable angina Unstable angina Disease Active 2019-04-21 00:00:00 Michele Christianity Dialysis AV fistula malfunction Dialysis AV fistula malfunction Dis ease Active 2018-08-27 00:00:00 Overview: Ad ded automatically from request for surgery [id number] Ryne Thrasher Combined forms of age-related cataract of right eye Co mbined forms of age- related cataract of right eye Disease Active 2018-06-17 00:00:00 Ryne Christianity End stage renal disease End stage renal disease Disease Active 2016-07-22 00:00:00 Overview: Added automaticall y from request for surgery [id number] Ryne Thrasher Dependence on hemodialysis Dependence on hemodialysis Disease Active 2016-07-22 00:00:00 Overview: Added automaticall y from request for surgery [id number] Ryne Thrasher Essential hypertension Essential hypertension Disease Active 2015-12-19 00:00:[address] Compression of vein Compression of vein Disease Active 2015-12-19 00:00 :00 Ryne Christianity End-stage renal disease End-stage renal disease Disease Active 2015-12-19 00:00:[address] Vascular device, implant, or graft complication Vascul ar device, implant, or graft complication Disease Active 2015-12-19 00:00:00 Ryne Santanaist Dialysis complication Dialysis complication Disease Active 201 08-17-10 00:00:00 Ryne paris Diabetes mellitus Diabetes Problem Active [facility] Osteomyelitis of left foot Foot osteomyelitis, left Problem Active [facility] Allergies, Adverse Reactions, Alerts Allergy Name Allergy Type Status Severity Reaction(s) Onset Date Inacti ve Date Treating Clinician Comments Source Iodinated Contrast Media Propensity to adverse reactions to drug Ac tive Other (See Comments) 2019-04-30 00:00:00 "Pt states i t turns his lips black and starts to peel" Ryne Thrasher Heparin Allergy to Substance Active Unknown 2018-12-29 00:00:00 [facility] Iodine Propensity to adverse reactions to drug [...] Ryne Thrasher Paternal grandmother Diabetes [place] [facility] Paternal grandmother Hypertension Ho beltran Thrasher Paternal grandmother Kidney disease Ryne Thrasher Natural sister Diabetes [facility] Natural sister Kidney disease Alyson Thrasher [...] Mg Tab 2019-06-22 00:00:00 Yes Mary Glover Flatwork Finisher 10 Daily [facility] Aspirin (Aspirin Chew) 81 Mg Chew Aspirin (Aspirin Chew) 81 Mg Chew 2019-06-22 00:00:00 Yes Mary Glover Flatwork Finisher 81 Daily [facility] Atorvastatin 40 Mg Tab Atorvastatin 40 Mg Tab 2019-06-22 00:00:00 Yes Mary Glover Flatwork Finisher 40 Bedtime [facility] Calcium Acetate 1,334 Cap Calcium Acetate 1,334 Cap 2019-06-22 00:00: 00 Yes Mary Glover Flatwork Finisher 1334 Three Times Daily With Meals [facility] Hydrocodone/Apap 10MG-325MG 1 Ea Tab Hydrocodone/Apap 10MG-3 25MG 1 Ea Tab 2019-06-22 00:00:00 Yes Mary M [place] Flatwork Finisher 1 Every 6 Hours as needed for Moderate Pain (4-6) [facility] Insulin Glargine 100 Units/Ml Vial Insulin Glargine 100 Unit s/Ml Vial 2019-06-22 00:00:00 Yes Mary M Adalberto Flatwork Finisher 15 Bedtime [facility] Insulin Lispro 100 Unit/1 Ml Vial Insulin Lispro 100 Unit/1 Ml Vial 2019-06-22 00:00:00 Yes Mary M [place] Flatwork Finisher 0 Before Meals And A t Bedtime [facility] Pregabalin (Lyrica) 75 Mg Cap Pregabalin (Lyrica) 75 Mg Cap 2019 00:00:00 Yes Mary M Adalberto Flatwork Finisher 75 Daily [facility] Zolpidem Tartrate (Ambien) 5 Mg Tablet Zolpidem Tartrate (Am ran) 5 Mg Tablet 2019-06-22 00:00:00 Yes Mary M [place] Flatwork Finisher 5 Bedtime [facility] lanthanum (FOSRENOL) 1000 MG chewable tablet 2019-05-04 16:40:02 Yes 1000mg Q.[id number] Chew 1,000 mg 3 (three) times a day w ith meals. Ryne Thrasher calcium acetate (PHOSLO) 667 mg capsule 2019-05-04 16:40:02 Yes 1334mg Q.[id number] Take 1,334 mg by mouth 3 (three) times a day with meals. Ryne Thrasher gabapentin (NEURONTIN) 100 mg capsule 2019-05-04 16:40:02 Yes 100mg Q.5D Take 100 mg by mouth 2 (two) times a day. Ryne Thrasher insulin ASPART (NovoLOG) 100 unit/mL injection 2019-05-04 16:40: 02 Yes 10U Q.[id number] Inject 10 Units under the sk in [...] ophthalmic suspension 2018-03-27 00:00:00 2019-04-21 00:00:00 No Ryen Thrasher traMADol (ULTRAM) 50 mg tablet 2018-03-18 00:00:00 Yes 50mg Q12H Take 50 mg by mouth every 12 (twelve) hours as needed for moderate pain. Ryne Thrasher simvastatin (ZOCOR) 20 mg tablet 2016-01-12 12:42:00 Yes 20mg Take 20 mg by mouth at bedtime. [facility] glipiZIDE (GLUCOTROL) 10 mg tablet 2016-01-12 12:42:00 Yes 10mg Q.5D Take 10 mg by mouth 2 times daily (before meals). [facility] metoprolol (TOPROL XL) 100 mg extended release tablet 2016-01-12 12:42:00 Yes 100mg QD Take 100 mg by mouth daily. [facility] amitriptyline (ELAVIL) 50 mg tablet 2016-01-12 12:42:00 Yes 50mg Take 50 mg by mouth at bedtime. [facility] VICODIN 5 MG-500 MG TAB 2009-10-02 00:00:00 Yes D ental caries take 1 tablet by oral route every 4-6 hours as needed for pain [facility] CHLORHEXIDINE GLUCONATE 0.12 % MOUTHWASH 2009-10-02 00:00:[address] 15 milliliters in the mouth by mucous membrane route 2 times per day (after meals), swish in mouth for 30 seconds then spit out [facility] Cinacalcet Hcl (Sensipar) 60 Mg Tablet Cinacalcet Hcl (Sensipar) 60 Mg Tablet Yes 60 Before Meals [facility] Clopidogrel Bisulfate (Plavix) 75 Mg Tablet Clopidogre l Bisulfate (Plavix) 75 Mg Tablet Yes 75 Daily [facility] Metoprolol Tartrate 100 Mg Tablet Metoprolol Tartrate 100 Mg Tablet Yes 100 Twice A Day [facility] Calcium Acetate 667 Mg Capsule, 2 Tab Oral Calcium Humza beaver 667 Mg Capsule, 2 Tab Oral 2019-06-22 00:00:00 No 2 Before Meals [facility] Gabapentin 100 Mg Capsule, 100 Mg Oral Gabapentin 100 Mg Capsule , 100 Mg Oral 2019-06-22 00:00:00 No 100 Twice A Day [facility] Insulin Aspart (Novolog) 100 Units/1 Ml Inj, 10 Unit S ub-Q Insulin Aspart (Novolog) 100 Units/1 Ml Inj, 10 Unit Sub-Q 2019-06-22 00:00:00 No 10 Before Meals [facility] Lanthanum Carbonate (Fosrenol) 1,000 Mg Tab.chew, 1000 Mg Oral Lanthanum Carbonate (Fosrenol) 1,000 Mg Tab.chew, 1000 Mg Oral 2019-06-22 00: 00:00 No 1000 Before Meals [facility] Tramadol Hcl (Ultram) 50 Mg Tablet, 50 Mg Oral Tramado l Hcl (Ultram) 50 Mg Tablet, 50 Mg Oral 2019-06-22 00:00:00 No 50 Twice A Day [facility] Immunizations Ordered Immunization Name Filled Immunization Name Date Status Comments Source Influenza <Unspecified> 2015-12-27 00:00:00 Completed [facility] Vital Signs Vital Name Observation Time Observation [...] Procedure Date / Time Performed Performing Clinician [facility] e Below knee amputation of right lower extremity 2019-06-18 00 :00:00 SAVANNA MESA [facility] X-ray of chest, two views 2019-06-09 00:00:00 BEBE RAMIREZ [facility] POC GLUCOSE 2019-05-04 14:08:00 Leah Dietz POC GLUCOSE 2019-05-04 08:49:00 Leah Dietz HC COMPLETE BLD COUNT W/AUTO DIFF 2019-05-04 05:10:00 Vik Hi SMEAR REVIEW 2019-05-04 05:10:00 Sebas Hi ethodist POC GLUCOSE 2019-05-03 22:28:00 Leah Dietz POC GLUCOSE 2019-05-03 18:22:00 Leah Dietz CV AORTOGRAM ABDOMINAL AORTA 2019-05-03 17:35:51 Sebas Hi ESTIMATED GFR 2019-05-03 15:30:00 Leah Dietz POC PANEL 2019-05-03 15:30:00 Leah Dietz POC GLUCOSE 2019-05-03 08:34:00 Leah Dietz HC COMPLETE BLD COUNT W/AUTO DIFF 2019-05-03 07:25:00 Kolton Vik shreyaspapito QuiñonezPraful Michele Christianity BASIC METABOLIC PANEL 2019-05-03 07:25:00 AshlieuHansa ESTIMATED GFR 2019-05-03 07:25:00 Hansa Lincoln n Christianity POC GLUCOSE 2019-05-02 21:13:00 Leah Dietz POC GLUCOSE 2019-05-02 18:25:00 Leah Dietz Christianity HEMODIALYSIS 2019-05-02 17:51:21 Jose Alejandro Raza odist POC GLUCOSE 2019-05-02 07:21:00 Leah Dietz HC COMPLETE BLD COUNT W/AUTO DIFF 2019-05-02 05:11:00 Farhat Lincoln BASIC METABOLIC PANEL 2019-05-02 05:11:00 Hansa Lincoln ESTIMATED GFR 2019-05-02 05:11:00 Hansa Lincoln Christianity POC GLUCOSE 2019-05-01 20:55:00 Leah Dietz POC GLUCOSE 2019-05-01 17:03:00 Leah Dietz Christianity POC GLUCOSE 2019-05-01 13:01:00 Leah Dietz POC GLUCOSE 2019-05-01 11:43:00 Leah Dietz US CAROTID DUPLEX BILATERAL 2019-05-01 10:15:00 Angel Lugo POC GLUCOSE 2019-05-01 07:36:00 Leah Dietz BASIC METABOLIC PANEL 2019-05-01 04:00:00 Leah Dietz Christianity PHOSPHORUS LEVEL 2019-05-01 04:00:00 Jose Alejandro Raza [...] BRACHIAL INDEX 2019-04-29 20:00:00 Tremayne Calle [place] [facility] ECG 12-LEAD 2019-04-29 18:14:24 Tremayne Calle [facility]odist HC COMPLETE BLD COUNT W/AUTO DIFF 2019-04-29 17:59:00 Meera Calle PROTHROMBIN TIME WITH INR 2019-04-29 17:59:00 Tremayne Calle PARTIAL THROMBOPLASTIN TIME (PTT) 2019-04-29 17:59:00 Meera Calle TYPE AND SCREEN 2019-04-29 17:59:00 Tremayne Calle [facility] COMPREHENSIVE METABOLIC PANEL 2019-04-29 17:59:00 Tremayne Calle LACTIC ACID LEVEL, SEPSIS - NOW AND REPEAT 2X EVERY 3 HOURS 2019-04-29 17:59:00 Leah Dietz ESTIMATED GFR 2019-04-29 17:59:00 Tremayne Calle [facility] ECG ED PRELIMINARY INTERPRETATION 2019-04-29 17:43:51 Meera Calle POC GLUCOSE 2019-04-24 07:20:00 Minh Bobbyl Misty Thrasher BASIC METABOLIC PANEL 2019-04-24 06:30:00 Minh Bobby HC COMPLETE BLD COUNT W/AUTO DIFF 2019-04-24 06:30:00 Minh Bobby ESTIMATED GFR 2019-04-24 06:30:00 Minh Bobby MAGNESIUM LEVEL 2019-04-24 06:30:00 Minh Bobbyvarelsal Misty Thrasher POC GLUCOSE 2019-04-23 21:01:00 Minh Bobbyvarlal H clement Thrasher POC GLUCOSE 2019-04-23 17:48:00 Minh Bobbyvarlal H clement Thrasher POC GLUCOSE 2019-04-23 16:48:00 Minh Bobbyvarelsal H clement Thrasher POC GLUCOSE 2019-04-23 15:46:00 Minh Bobby Sallyvarlal H clement Christianity POC GLUCOSE 2019-04-23 11:22:00 Minh Bobby Sallyvarlal H clement Christianity HC COMPLETE BLD COUNT W/AUTO DIFF 2019-04-23 08:00:00 Selvin Minh Michele Christianity POC GLUCOSE 2019-04-23 07:22:00 Kunal Bobbyevelia Sonilal H clement Christianity ECG 12-LEAD 2019-04-23 05:20:58 Angel Lugo Meth odist POC GLUCOSE 2019-04-23 05:10:00 Pia Bobbyrainamalindaevelia Zavalavarlal H clement Christianity BASIC METABOLIC PANEL 2019-04-23 04:00:00 Minh Bobby Kan Thrasher MAGNESIUM LEVEL 2019-04-23 04:00:00 James Bobbymilla Sonilal H clement Thrasher ESTIMATED GFR 2019-04-23 04:00:00 Kunal Bobbyevelia Zavalavarlal H clement Christianity TROPONIN 2019-04-23 04:00:00 Kunal Bobbyevelia Natvarlal H clement Christianity POC GLUCOSE 2019-04-23 02:41:00 Kunal Bobbyevelia Zavalavarlal H clement Christianity POC GLUCOSE 2019-04-22 23:42:00 Minh Bobby Sallyvarlal H clement Christianity POC GLUCOSE 2019-04-22 23:38:00 Pia Bobbyjohana Zavalavarlal H clement Christianity POC GLUCOSE 2019-04-22 21:18:00 Kunal Bobbyevelia Natvarlal H clement Christianity POC GLUCOSE 2019-04-22 18:17:00 Kunal Bobbyevelia Natvarlal H clement Christianity POC GLUCOSE 2019-04-22 15:49:00 Selvin Minh Zavalavarlal H clement Christianity CV PCI PERCUTANEOUS CARDIAC ANGIOPLASTY 2019-04-22 15:09:51 Angel Lugo ACTIVATED CLOTTING TIME 2019-04-22 14:42:00 Bobby, Minh Michele Christianity POC GLUCOSE 2019-04-22 12:25:00 Minh Bobbyvarlal Misty vaughan Christianity HEMODIALYSIS 2019-04-22 12:20:25 Jose Alejandro Raza odist POC GLUCOSE 2019-04-22 11:33:00 Minh Bobby Natvarlal Misty vaughan Christianity POC GLUCOSE 2019-04-22 09:18:00 Minh Bobby Natvarlal Misty vaughan Christianity POC GLUCOSE 2019-04-22 06:41:00 Minh Bobby Natvarlal Misty vaughan Christianity ANTI XA, UNFRACTIONATED 2019-04-22 06:40:00 Angel Lugo Christianity POC GLUCOSE 2019-04-22 06:19:00 Kunal Bobbyevelia Sonilal Misty vaughan Christianity POC GLUCOSE 2019-04-22 05:05:00 Minh Bobby Sallyvarlal Misty vaughan Christianity POC GLUCOSE 2019-04-22 02:15:00 Minh Bobby Naelal Misty vaughan Christianity HC COMPLETE BLD COUNT W/AUTO DIFF 2019-04-22 00:00:00 Minh Bobby Ofelia Michele Christianity COMPREHENSIVE METABOLIC PANEL 2019-04-22 00:00:00 Misael Bobby meera Thrasher TROPONIN 2019-04-22 00:00:00 Minh Bobby Sallyvarlal Misty Thrasher ANTI XA, UNFRACTIONATED 2019-04-22 00:00:00 Angel Lugo ESTIMATED GFR 2019-04-22 00:00:00 Minh Bobby Sallyvarlal Misty vaughan Christianity POC GLUCOSE 2019-04-21 21:10:00 Minh Bobby Sallyvarlal Misty vaughan Christianity PROTHROMBIN TIME WITH INR 2019-04-21 16:00:00 Angel Lugo PARTIAL THROMBOPLASTIN TIME (PTT) 2019-04-21 16:00:00 Angel Lugo ANTI XA, UNFRACTIONATED 2019-04-21 16:00:00 Angel Lugo TROPONIN 2019-04-21 16:00:00 Pia Bobbytmilla Thrasher HEPATITIS B SURFACE ANTIGEN 2019-04-21 13:35:00 Jose Alejandro Raza POC GLUCOSE 2019-04-21 12:47:00 Minh Bobby ECG 12-LEAD 2019-04-21 12:32:31 Minh Bobby TROPONIN 2019-04-21 12:31:00 Bobby Minh Thrasher TTE COMPLETE, WO CONTRAST, W DOPPLER ([id number]) 2019-04-21 10:3 5:47 Minh Bobby TROPONIN 2019-04-21 09:12:00 Minh Bobby POC GLUCOSE 2019-04-21 08:09:00 Minh Bobby HEMODIALYSIS 2019-04-21 07:33:52 Jose Alejandro Raza Meth odist POC GLUCOSE 2019-04-21 06:43:00 Minh Bobby POC GLUCOSE 2019-04-21 05:22:00 Maria R Haney Meth odemeka TROPONIN 2019-04-21 05:20:00 Al Alexis POC GLUCOSE 2019-04-21 04:50:00 Maria R Haney Meth odemeka ECG ED PRELIMINARY INTERPRETATION 2019-04-21 03:23:33 [...] SINGLE ANTIGEN BEADS 2019-01-11 07:10:00 Neo Moya [facility] [place] APPLY LOWER LEG SPLINT 2019-01-05 21:09:38 Nikole Esteban Christianity [place] RESUPERF WND BODY <2.5CM 2019-01-05 19:58:55 Devan Rhodes PERFORMANCE OF URINARY FILTRATION, <6 HRS/DAY 2019-01-04 00:00:0 0 [facility] EXCISION OF LEFT METATARSAL, OPEN APPROACH 2019-01-01 00:00:[address] [facility] TRANSFER LEFT FOOT SKIN, EXTERNAL APPROACH 2019-01-01 00:00:[address] [facility] DRAINAGE OF L FOOT SUBCU/FASCIA, OPEN APPROACH 2019-01-01 00:00: [address] [facility] PERFORMANCE OF URINARY FILTRATION, <6 HRS/DAY 2019-01-01 00:00:0 0 [facility] X-ray of chest, two views 2018-12-31 00:00[facility]00 [facility]FORMANCE OF URINARY FILTRATION, <6 HRS/DAY 2018-12-30 00:00:0 0 [facility] HLA ALLOGENEIC CROSSMATCH 2018-11-04 16:05:00 Bret Marie HLA ALLOGENEIC CROSSMATCH 2018-11-03 15:03:00 Bret Marie SINGLE ANTIGEN BEADS 2018-10-14 11:28:00 Neo Moya HLA ALLOGENEIC CROSSMATCH 2018-10-03 12:13:00 Neo Moya SINGLE ANTIGEN BEADS 2018-09-07 13:21:00 Neo Moya Christianity HLA ALLOGENEIC CROSSMATCH 2018-09-04 19:02:[address] ALL[facility]ENE[facility]OSSM[facility] 2018-08-28 14:46:00 Neo Moya SINGLE ANTIGEN BEADS 2018-08-10 07:20:00 Neo Moya Christianity HLA ALLOGENEIC CROSSMATCH 2018-08-01 16:44:[address] Yuki [address] [facility] Care Planned Activity Planned Date Details Comments Source [facility] Scheduled Test 2019-12-09 00:00:00 IMM Influenza Seas onal Dec to May (>/= 19 yrs) [code = IMM Influenza Seasonal Dec to May (>/= 19 yrs)] [facility] Scheduled Test 2019-10-09 00:00:00 INFLUENZA VACCINE [code = INFLUENZA VACCINE] [facility] Scheduled Test 2007-10-09 00:00:00 Colorectal Cancer Scrn Annual (FIT/FOBT) Age 50 to 75 [code = Colorectal Cancer Scrn Annual (FIT/FOBT) Age 50 to 75] [facility] Scheduled Test 2007-10-09 00:00:00 COLONOSCOPY SCREEN ING [code = COLONOSCOPY SCREENING] [facility] Scheduled Test 2007-10-09 00:00:00 SHINGLES VACCINES (#1) [code = SHINGLES VACCINES (#1)] [facility] Scheduled Test 1967-10-09 00:00:00 DIABETIC FOOT EXAM [code = DIABETIC FOOT EXAM] [facility] Scheduled Test 1967-10-09 00:00:00 URINE MICROALBUMIN [code = URINE MICROALBUMIN] [facility] Scheduled Test 1957 00:00:00 DIABETIC RETINAL E YE EXAM [code = DIABETIC RETINAL EYE EXAM] [facility] Encounters Start Date/Time End Date/Time Encounter Type Admission Type [facility] Department Encounter ID Source 2019-06-09 17:51:00 2019-06-22 18:07:00 Discharged Inpatient 3 ZONIA BURNETT [facility] [id number] [facility] 2019-05-18 00:00:00 2019-05-18 00:00:00 Outpatient LAY GLOVER [facility] [id number] [facility] 2019-04-29 00:00:00 2019-05-04 00:00:00 Inpatient BENJAMIN DIETZ ED [facility] [id number] [facility] 2019-04-21 00:00:00 2019-04-24 00:00:00 Inpatient MISAEL BOBBY [facility] [id number] [facility] 2019-04-20 00:00:00 2019-04-20 00:00:00 Outpatient LYA GLOVER [facility] [id number] [facility] 2018-12-29 13:59:00 2019-01-05 07:20:00 Discharged Inpatient 1 ANGELITA ESQUIVEL [facility] [id number] [facility] 2019-01-05 00:00:00 2019-01-05 00:00:00 Emergency DEVAN RHODES [place] [id number] [facility] 2018-11-12 00:00:00 2018-11-12 00:00:00 Emergency LORENA ADEN [place] [id number] [facility] Results Test Description Test Time Test Comments Results Result Comments Source Bedside Glucose 2019-06-22 08:02:00 Test Item Bedside Glucose (test code = 63541-8) 118 70-120 [facility] ID[id number] 2019-06-[facility] 05:59:00* Test Item Value Reference Range Interpretation Comments White Blood Count (test code = 6690-2) 13.15 4.8-10.8 [facility] [id number] 05:59:00* Test Item Value Reference Range Interpretation Comments Red Blood Count (test code = 789-8) 2.98 4.3-5.7 [facility]2020-04-14 05:59:00* Test Item Value Reference Range Interpretation Comments Hemoglobin (test code = 11973-0) 8.8 14.0-18.0 [facility]ematocrit2020-04-14 05:59:00* Test Item Value Reference Range Interpretation Comments Hematocrit (test code = 4544-3) 27.8 38.2-49.6 [facility] Corpuscular Dsrwgo1270-78-22 05:59:00* Test Item Value Reference Range Interpretation Comments Mean Corpuscular Volume (test code = 787-2) 93.3 81-99 [facility] Corpuscular Vrmrxisrcr8575-03-26 05:59:00* Test Item Value Reference Range Interpretation Comments Mean Corpuscular Hemoglobin (test code = 785-6) 29.5 28-32 [facility] Hemoglobin Concent 2019-06-22 05:59:00* Test Item Value Reference Range Interpretation Comments Mean Corpuscular Hemoglobin Concent (test code = 786-4) 31.7 31-35 [facility] Distribution [id number] 05:59:00* Test Item Value Reference Range Interpretation Comments Red Cell Distribution Width (test code = 40869-2) 15.0 11.7 -14.4 [facility] HospitalPlatelet Sctkr8359-76-06 05:59:00* Test Item Value Reference Range Interpretation Comments Platelet Count (test code = 777-3) 263 140-360 [facility]Neut[facility]ils (%) (Auto)2019-06-22 05:59:00 * Test Item Value Reference Range Interpretation Comments Neutrophils (%) (Auto) (test code = 16070-6) 73.9 38.7-80.0 [facility]Lymphocytes (%) (Auto)2019-06-22 05:59:00 * Test Item Value Reference Range Interpretation Comments Lymphocytes (%) (Auto) (test code = 736-9) 7.8 18.0-39.1 [facility] (%) (Auto)2019-06-22 05:59:00* Test Item Value Reference Range Interpretation Comments Monocytes (%) (Auto) (test code = 5905-5) 9.0 4.4-11.3 [facility]osinophils (%) (Auto)2019-06-22 05:59:00 * Test Item Value Reference Range Interpretation Comments Eosinophils (%) (Auto) (test code = 713-8) 8.3 0.0-6.0 [facility] (%) (Auto)2019-06-22 05:59:00* Test Item Value Reference Range Interpretation Comments Basophils (%) (Auto) (test code = 706-2) 0.5 0.0-1.0 [facility]ULOCYTES %2019-06-22 05:59:00* Test Item Value Reference Range Interpretation Comments IM GRANULOCYTES % (test code = IM GRANULOCYTES %) 0.5 0.0- 1.0 [facility]utrophils # (Auto)2019-06-22 05:59:00* Test Item Value Reference Range Interpretation Comments Neutrophils # (Auto) (test code = 751-8) 9.7 2.1-6.9 [facility] HospitalLymphocytes # (Auto)2019-06-22 05:59:00* Test Item Value Reference Range Interpretation Comments Lymphocytes # (Auto) (test code = 46967-9) 1.0 1.0-3.2 [facility] # (Auto)2019-06-22 05:59:00* Test Item Value Reference Range Interpretation Comments Monocytes # (Auto) (test code = 742-7) 1.2 0.2-0.8 [facility]osinophils # (Auto)2019-06-22 05:59:00* Test Item Value Reference Range Interpretation Comments Eosinophils # (Auto) (test code = 711-2) 1.1 0.0-0.4 [facility] # (Auto)2019-06-22 05:59:00* Test Item Value Reference Range Interpretation Comments Basophils # (Auto) (test code = 704-7) 0.1 0.0-0.1 [facility] HospitalAbsolute Immature Granulocyte (auto 2019-06-22 05:59:00* Test Item Value Reference Range Interpretation Comments Absolute Immature Granulocyte (auto (jo ann t code = Absolute Immature Granulocyte (auto) 0.07 0-0.1 [facility] Casxy2017-15-07 05:58:00* Test Item Value Reference Range Interpretation Comments Sodium Level (test code = 2951-2) 136 136-145 [facility] HospitalPotassium [id number] 05:58:00* Test Item Value Reference Range Interpretation Comments Potassium Level (test code = 2823-3) 3.8 3.5-5.1 [facility] HospitalChloride Zlgbn6830-60-64 05:58:00* Test Item Value Reference Range Interpretation Comments Chloride Level (test code = 2075-0) 98 98-107 [facility] HospitalCarbon Dioxide Izsgt8956-43-80 05:58:00* Test Item Value Reference Range Interpretation Comments Carbon Dioxide Level (test code = 2028-9) 27 22-29 [facility] HospitalAnion Xlo5871-65-05 05:58:00* Test Item Value Reference Range Interpretation Comments Anion Gap (test code = 44460-5) 14.8 8-16 [facility] HospitalBlood Urea Rzqdmcte9073-83-32 05:58:00* Test Item Value Reference Range Interpretation Comments Blood Urea Nitrogen (test code = 3094-0) 26 7-26 [facility] HospitalCreatinine2020-04-14 05:58:00* Test Item Value Reference Range Interpretation Comments Creatinine (test code = 2160-0) 6.43 0.72-1.25 [facility] HospitalBUN/Creatinine Yvtgl3868-44-98 05:58:00* Test Item Value Reference Range Interpretation Comments BUN/Creatinine Ratio (test code = 3097-3) 4 6-25 [facility] HospitalEstimat Glomerular Filtration Rate 2019-06-22 05:58:00* Test Item Value Reference Range Interpretation Comments Estimat Glomerular Filtration Rate (test code = 192583200) 11 >60 Ranges were taken from the National Kidney Disease Education Program and the [facility] Foundation literature.Reference ranges:60 or greater: Tmxlty18-95 ( for 3 consecutive months): Chronic kidney disease 15 or less: Kidney failureCHRISTUS Saint Michael HospitalGlucose Apikf0381-27-66 05:58:00* Test Item Value Reference Range Interpretation Comments Glucose Level (test code = GRC5062) 55 74-118 Results repeated and called to BERNARD WELSH RN at 0556 on 06/22/19 by Prachi wallace Read back and verified.[facility] HospitalCalcium Level 2019-06-22 05:58:00* Test Item Value Reference Range Interpretation Comments Calcium Level (test code = 56100-0) 7.3 8.4-10.2 [facility] Occult Gbwra4985-97-45 12:30:00* Test Item Value Reference Range Interpretation Comments Stool Occult Blood (test code = 2335-8) POSITIVE NEGATIVE [facility] HospitalAlkaline Wqzowgrkdqb3582-79-03 07:28:00* Test Item Value Reference Range Interpretation Comments Alkaline Phosphatase (test code = 6768-6) 83 40-150 [facility] HospitalTotal Escktajck6600-28-80 07:27:00* Test Item Value Reference Range Interpretation Comments Total Bilirubin (test code = 1975-2) 0.4 0.2-1.2 [facility] HospitalAspartate Amino Transf (AST/SGOT) 2019-06-18 07:27:00* Test Item Value Reference Range Interpretation Comments Aspartate Amino Transf (AST/SGOT) (test code = Aspartate Amino Transf (AST/SGOT)) 24 5-34 [facility] HospitalAlanine Aminotransferase (ALT/SGPT) 2019-06-18 07:27:00* Test Item Value Reference Range Interpretation Comments Alanine Aminotransferase (ALT/SGPT) (test code = 1742-6) 7 0-55 [facility] HospitalTotal Yrycugz2565-66-64 07:27:00* Test Item Value Reference Range Interpretation Comments Total Protein (test code = 2885-2) 6.4 6.5-8.1 [facility] HospitalAlbumin2020-04-10 07:27:00* Test Item Value Reference Range Interpretation Comments Albumin (test code = 1751-7) 1.7 3.5-5.0 [facility] HospitalGlobulin2020-04-10 07:27:00* Test Item Value Reference Range Interpretation Comments Globulin (test code = 86567-4) 4.7 2.3-3.5 [facility] HospitalAlbumin/Globulin Uxcwi3519-32-78 07:27:00 * Test Item Value Reference Range Interpretation Comments Albumin/Globulin Ratio (test code = 1759-0) 0.4 0.8-2.0 [facility] HospitalPhosphorus Tbdom2745-22-68 06:32:00* Test Item Value Reference Range Interpretation Comments Phosphorus Level (test code = DLF3663) 2.8 2.3-4.7 [facility] HospitalMagnesium Mdgko4471-24-45 06:24:00* Test Item Value Reference Range Interpretation Comments Magnesium Level (test code = 30614-8) 1.9 1.3-2.1 [facility] HospitalHepatitis B Surface Ppzxkzf8979-84-04 08:02:00* Test Item Value Reference Range Interpretation Comments Hepatitis B Surface Antigen (test code = 5196-1) Negative Negat xin Performed at: - Lab[address] [id number] Director: Travon Christensen MD, Phone: [phone] Saint Michael HospitalDifferential Total Cells Bwdaarz2520-66-72 07:37:00* Test Item Value Reference Range Interpretation Comments Differential Total Cells Counted (test code = Differbo tial Total Cells Counted) 100 [facility] HospitalNeutrophils % (Manual)2019-06-14 07:37:00 * Test Item Value Reference Range Interpretation Comments Neutrophils % (Manual) (test code = 88368-3) 88 40-74 [facility] HospitalLymphocytes % (Manual)2019-06-14 07:37:00 * Test Item Value Reference Range Interpretation Comments Lymphocytes % (Manual) (test code = 737-7) 7 19-48 [facility] HospitalMonocytes % (Manual)2019-06-14 07:37:00* Test Item Value Reference Range Interpretation Comments Monocytes % (Manual) (test code = 744-3) 5 3.4-9.0 [facility] HospitalPlatelet Bukmcatx1716-22-99 07:37:00* Test Item Value Reference Range Interpretation Comments Platelet Estimate (test code = 78877-8) ADEQUATE [facility] HospitalPlatelet Morphology Pgehfoq7271-71-30 07:37:00* Test Item Value Reference Range Interpretation Comments Platelet Morphology Comment (test code = 65764-5) NORMAL [facility] HospitalRed Cell Morphology Xqxsvzi3015-80-92 07:37:00* Test Item Value Reference Range Interpretation Comments Red Cell Morphology Comment (test code = 6742-1) NORMAL [facility] HospitalFOOT RIGHT AP XGB2712-28-44 20:03:00 [facility] [address] [address] Patient Name: DUONG BAUTISTA MR #: [id number] : 1955 Age/Sex: 63/M Req #: [id number] Adm Physician: ZONIA BURNETT MD Ordered by: SAVANNA MO DPHam Report #: [id number] Location: MED/SURG2 Room/Bed: [facility] Procedure: [id number] DX/ FOOT RIGHT AP LAT Exam Date: [...] 06/11/192012 COPY TO: SAVANNA MO DPM Prothrombin Vpam8378-97-77 17:35:00* Test Item Value Reference Range Interpretation Comments Prothrombin Time (test code = 5902-2) 14.4 11.9-14.5 [facility] HospitalProthromb Time International Ratio 2019-06-11 17:35:00* Test Item Value Reference Range Interpretation Comments Prothromb Time International Ratio (test code = 6301-6) 1.05 Oral Anticoagulant Therapy INR Values:1. Low Intensity Therapy 1.5 - 2.02 . Moderate Intensity Therapy 2.0 - 3.03. High Intensity Therapy(1) 2.5 - 3. 54. High Intensity Therapy(2) 3.0 - 4.05. Panic Value INR > 5.0 [facility] B Surface Antibody, Quant 2019-06-11 07:51:00* Test Item Value Reference Range Interpretation Comments Hepatitis B Surface Antibody, Quant (test code = 5194-6) 967.7 Immunity>9.9 Status of Immunity Anti-HBs Level Inconsistent with Immunity 0.0 - 9.9Consistent with Immunity >9.9[facility] Be Ousmqmu3402-08-66 07:51:00* Test Item Value Reference Range Interpretation Comments Hepatitis Be Antigen (test code = 89254-4) Negative Negative [facility] B Core Total Cjwbjmay0323-61-14 07:51:00* Test Item Value Reference Range Interpretation Comments Hepatitis B Core Total Antibody (test code = 37341-4) Negative Negative Performed at: HD - [address] [id number] Director: Travon Christensen MD, Phone: [phone] Saint Michael HospitalC-Reactive Tcdlkdz6431-55-91 06:16:00* Test Item Value Reference Range Interpretation Comments C-Reactive Protein (test code = 1988-5) 345 0-10 Performed at: - [facility] [address] [id number] Director: Travon Christensen MD, Phone: [phone] Saint Michael HospitalThyroid Stimulating Hormone (TSH)2019-06-10 06:12:00* Test Item Value Reference Range Interpretation Comments Thyroid Stimulating Hormone (TSH) (test code = 05300-6) 6.111 0.350-4.940 [facility] HospitalErythrocyte Sedimentation Jfod2403-75-66 05:56:00* Test Item Value Reference Range Interpretation Comments Erythrocyte Sedimentation Rate (test code = 4537-7) 124 0- 13 [facility] HospitalTriglycerides Yymle5657-73-76 05:51:00* Test Item Value Reference Range Interpretation Comments Triglycerides Level (test code = 2571-8) 99 0-149 [facility] HospitalCholesterol Iiwiu7532-49-94 05:51:00* Test Item Value Reference Range Interpretation Comments Cholesterol Level (test code = 2093-3) 96 0-199 Less than 200 mg/dL Low Erkq462 - 239 mg/dL Borderline Zyjg682 m g/dl and greater High Risk [facility] HospitalLDL Rqbbpocvbfg7248-86-90 05:51:00* Test Item Value Reference Range Interpretation Comments LDL Cholesterol (test code = 2089-1) 55 60-130 [facility] HospitalHDL Blvkdndayug1745-62-80 05:51:00* Test Item Value Reference Range Interpretation Comments HDL Cholesterol (test code = 2085-9) 21 40-60 [facility] HospitalCholesterol/HDL Gajje4252-07-52 05:51:00 * Test Item Value Reference Range Interpretation Comments Cholesterol/HDL Ratio (test code = 9830-1) 4.6 3.9-4.7 [facility] HospitalHemoglobin A1c Mnwmazu3191-70-31 05:41:00 * Test Item Value Reference Range Interpretation Comments Hemoglobin A1c Percent (test code = Hemoglobin A1c Percent) 8.3 4.0-7.0 [facility] HospitalActivated Partial Thromboplast Time 2019-06-10 05:40:00* Test Item Value Reference Range Interpretation Comments Activated Partial Thromboplast Time (test code = 05422-0) 39.6 23.8-35.5 [facility] HospitalCHEST 2 ZWKOZ0559-94-51 22:51:00 [facility] [address] [address] Patient Name: DUONG BAUTISTA MR #: [id number] : 1955 Age/Sex: 63/M Req #: [id number] Adm Physician: ZONIA BURNETT MD Ordered by: BEBE RAMIREZ WELL SURVEYING ENGINEER Report #: [id number] Location: MED/SURG2 Room/Bed: [facility] Procedure: [id number] D X/CHEST 2 VIEWS Exam Date: 06/09/19 [...] on 06/09/192253 CO PY TO: BEBE RAMIREZ NP FOOT RIGHT SGPEFOLJ3382-14-01 22:45:[address] [address] Patient Name: DUONG BAUTISTA MR #: [id number] : 1955 Age/Sex: 63/M Req #: [id number] Adm Physician: ZONIA BURNETT MD Ordered by: SAVANNA MO DPM Report #: [id number] Location: MED/SURG2 Room/Bed: [facility] Procedure: [id number] DX/ FOOT RIGHT COMPLETE Exam Date: 06/09/19 Exam Time: 2 200 REPORT STATUS: Signed Foot c omplete CPT code: 03538 Indication: Wound at bottom of foot with [...] to disuse osteopenia. Sign ed by: Dr. Adná Neri MD on 06/09/2019 10:51 PM Dictated By: RACHAEL NERI MD 50 Transcribed By: FELECIA on 06/09/192250 COPY TO: SAVANNA MO DPM FOOT LEFT ZAXZPKZE1849-78-49 22:40:00 [address] [address] Patient Name: DUONG BAUTISTA MR #: [id number] : 1955 Age/Sex: 63/M Req #: [id number] Adm Physician: ZONIA BURNETT MD Ordered by: SAVANNA MO DPM Report #: [id number] Location: MED/SURG2 Room/Bed: [facility] Procedure: [id number] DX/ FOOT LEFT COMPLETE Exam Date: 06/09/19 Exam Time: 22 00 REPORT STATUS: Signed Foot co mplete CPT code: 51633 Indication: Left foot wound with drainage A [...] Interpretation Comments POC glucose (test code = 35938-4) 294 mg/dL 65-99 H Drying Can Worker Name: Tyron Núñez ID: [id number]: [facility] Notified sql data architect Interpretation (test code = 75061-2) Abnormal [facility] invasive peripheral vascular eohkmoqgv4202-51-07 09:14:15 RAILROAD YARD WORKER:None.PREOPERATIVE DIAGNOSES:1. Occlusion and/or stenosis of art eries [...] was utilized for access. Next, using a 4-Erit[place]an Contra catheterand a 0.035 [place] exchange wire, the right iliac artery was [...] utilize aspecific catheter other th an the 5-Eritrean sheath for this. All studies weredone under [...] to his ongoing pain, he will likely wcfcbjaliosv-vvr-lvse amputation as t here is sufficient flow to facilitate woundhealing. I have already communicated this to the patient's attendingcardiologist, Dr. Angel Lugo.[facility] with platelet and ahumgchevlxc3283-04-08 07:45:51* Test Item Value Reference Range Interpretation Comments WBC (test code = 36023-9) 7.48 4.50- 11.00 k/uL RBC (test code = 18963-0) 3.07 m/uL 4.4-6 L HGB (test code = 718-7) 9.0 g/dL 14-18 L HCT (test code = 4544-3) 29.1 % 41-51 L MCV (test code = 787-2) 94.8 fL 82-100 MCH (test code = 785-6) 29.3 pg 27-34 MCHC (test code = 786-4) 30.9 g/dL 31-37 L RDW - SD (test code = 48177-9) 47.1 fL 37-55 MPV (test code = 86684-9) 11.7 fL 8.8-13.2 Platelet count (test code = 16370-2) 172 150- 400 k/uL Nucleated RBC (test code = 82874-1) 0.00 /100 WBC Neutrophils (test code = 13709-1) 73.8 % 39-69 H Lymphocytes (test code = 29355-9) 11.8 % 25-45 L Monocytes (test code = 06144-4) 9.0 % 0-10 Eosinophils (test code = 86941-3) 4.4 % 0-5 Basophils (test code = 22114-2) 0.5 % 0-1 Immature granulocytes (test code = 35570-2) 0.5 % 0-1 "Immature granulocytes" (promyelocytes, myelocytes, metamyelocytes) Lab Interpretation (test code = 80851-8) Abnormal [facility] MethodistSmear onqmgb0811-42-55 07:45:51* Test Item Value Reference Range Interpretation Comments Platelet slide review (test code = 26414-5) Gary adequate Anisocytosis (test code = 702-1) Moderate Polychromasia (test code = 33705-4) Moderate Ovalocytes (test code = 774-0) Moderate Enlarged platelets (test code = 44721-0) Moderate A Giant platelets (test code = 5908-9) Occasional Lab Interpretation (test code = 67638-7) Abnormal [facility] MethodistPOC rkygp7083-07-11 15:33:31* Test Item Value Reference Range Interpretation Comments POC sodium (test code = 2947-0) 138 mmol/L 135-148 POC potassium (test code = 6298-4) 4.1 mmol/L 3.5-5 POC chloride (test code = 2069-3) 96 mmol/L 99-109 L POC CO2 (test code = 16944-7) 31 mmol/L 24-31 POC glucose (test code = 2339-0) 182 mg/dL 65-99 H POC BUN (test code = 6299-2) 21 mg/dL 8-24 POC creatinine (test code = 92689-4) 6.5 mg/dl 0.7-1.2 H POC hematocrit (test code = 4544-3) 31 % 41-51 L POC anion gap (test code = 1448658) 16 mmol/L 8-20 Drying Can Worker Name: Surya Junior CDevice ID: [id number] Lab Interpretation (test code = 05837-7) Abnormal [facility] MethodistEstimated AYF3361-11-44 15:33:31* Test Item Value Reference Range Interpretation Comments Estimated GFR (test code = 54453-1) 10 mL/min/1.73 m2 A Catergory Units InterpretationG1 >=90 Normal or highG2 60-89 Mildly jberpoiayJ2m 45-59 Mildly to moderately ykmlfkmrnG2y 30-44 Moderately to severely decreasedG4 15-29 Severely decreasedG5 <15 Kidney failureThe eGFR was calculated using the Chronic Kidney Disease Epidemiology Collaboration (CKD-EPI) equation. Interpretation is based on recommendations of the National Kidney Foundation-Kidney Disease Outcomes Quality Initiative (NKF-KDOQI) published in 2014. Lab Interpretation (test code = 58716-0) Abnormal [facility] MethodistBasic metabolic crdcq5304-53-66 09:21:37* Test Item Value Reference Range Interpretation Comments Sodium (test code = 2951-2) 138 135- 148 mEq/L Potassium (test code = 2823-3) 5.1 3.5- 5.0 mEq/L H Chloride (test code = 2075-0) 96 98- 112 mEq/L L CO2 (test code = 2028-9) 23 24- 31 mEq/L L Anion gap (test code = 99976-3) 19@ANIO 7- 15 mEq/L H BUN (test code = 3094-0) 53 mg/dL 8-23 H Creatinine (test code = 2160-0) 11.08 mg/dL 0.7-1.2 H Glucose (test code = 2345-7) 228 mg/dL 65-99 H Calcium (test code = 83690-3) 8.4 mg/dL 8.8-10.2 L Lab Interpretation (test code = 35090-6) Abnormal [facility] MethodistUs carotid occftw8732-02-57 16:30:00Interface, Radiology Results In - 05/01/2019 4:30 PM [facility] Vascular Ultrasound Laboratory Carotid Artery Duplex Report [address] [address], [place] [address] For quality control inspector purposes, the categorization of the degree of the stenosis of this exam is based on criteria described in the IAC carotid stenosis grading white paper( www.intersocietal.org/Vascular) and Maria Esther Nascimento, Magdaleno Baum, et al. Carotid artery stenosis: christensen-scale and Doppler US diagnosis--Society of Radiologists in Ultrasound Consensus C onference. Radiology. 2003 Nov; 229(2):340-6. Pat.Name: DUONG BAUTISTA Pat.ID: [id number] St.Date: 05/01/2019 Refer.MD: STACEY LUGO MD Exam Time: 9:25:00 AM Study Type:Carotid Height: 72in Weight: 186lb BSA: 2.07 m2 Age: 8 1955,63Y Sex: MALE Sonogrphr: Charleen Pathak RVT Pat. Stat.:Inpatient Room: [address] Vol: RF, CPT - 4: 68407 Echo Event ID:[id number] Order ID: [id number] Reason for Study:Evaluate for possible carotid artery [...] Signed 05/01/2019 04:30 PMZsolt Brooke damon MD, RPVIBarstow MethodistECG 12 qcxn5740-84-28 16:22:07* Test Item Value Reference Range Interpretation Comments Ventricular rate (test code = 253) 66 Atrial rate (test code = 255) 66 KS interval (test code = 266) 184 QRSD [...] nonspecific T wave abnormality in Anterior leads- Michele MethodistPhosphorus sscft0646-40-46 07:59:06* Test Item Value Reference Range Interpretation Comments Phosphorus (test code = 2777-1) 3.8 mg/dL 2.4-4.5 [facility] MethodistHemoglobin L7m8315-39-04 08:11:29* Test Item Value Reference Range Interpretation Comments Hemoglobin A1C (test code = 23620-3) 8.4 % 4-5.6 H HbA1c cutoffs for diagnosing diabetes:4.0% - 5.6% = normal5.7% - 6.4% = increased risk for diabetes (prediabetes)9>=6.5% = lbxuvtge9Nbkhu for glycemic control (ADA 2016)< 7.0% Target for non adults with diabetes. More or less stringent targets may be appropriate for individual patients. <7.5% Target for Children and adolescents with type 1 diabetes. Lab Interpretation (test code = 91154-3) Abnormal [facility] MethodistLipid pevvq5143-95-60 07:46:25* Test Item Value Reference Range Interpretation Comments Cholesterol (test code = 2093-3) 154 mg/dL <200 Triglycerides (test code = 2571-8) 130 mg/dL <150 HDL cholesterol (test code = 2085-9) 40 mg/dL >40 LDL cholesterol (test code = 2089-1) 91 mg/dL <100 Result obtained by direct LDL measurement Lipid panel interpretation (test code = 47973-6) SeeBelow Total Cholesterol (mg/dL) <200 Desirable 200-239 [...] high triglycerides (>=200 mg/dL) Michele MethodistUric acid vjxhe6032-60-46 07:46:25* Test Item Value Reference Range Interpretation Comments Uric acid (test code = 3084-1) 4.5 mg/dL 3.4-7 [facility] MethodistLactic acid level, SEPSIS - Now and repeat 2x every 3 hours 2019-04-30 07:32:53* Test Item Value Reference Range Interpretation Comments Lactic acid (test code = 94472-5) 2.1 mmol/L 0.5-2.2 Ryne MethodistXR Foot 3 Vw Npcfjnvjj0320-44-52 07:25:58Hm Interface, Radiology Results 04/30/2019 7:29 AM [...] le sionsNo radiopaque foreign bodies are present. [id number] EstheristUs duplex arterial lower fczvamupu6683-81-13 23:36:00Interface, Radiology Results In - 04/29/2019 11:37 PM [facility] Vascular Ultrasound Laboratory Lower Extremity Arterial Duplex Report [id number] [address]Plb.Name: DUONG BAUTISTA Pat.ID: [id number] St.Date: 04/29/2019 Refer.MD: TREMAYNE CALLE MD Exam Time: 7:34:00 PM Study Type:LE Arterial Height: 72in BSA: 2.01 m2 Age: 8 1955,63Y Sex: MALE Sonogrphr: CHELSEA Castellon Pat. Stat.:Inpatient Room: ED34 Tape Vol: , CPT - 4: 67024 Echo Event ID:[id number] Order ID: [id number] Reason for Study:Leg pain and discoloration bilateraly. [...] disease. FIN DINGS: ME ASUREMENTS: D OPPLERRight TEAM PRIMARY CARE PHYSICIAN prox TEAM PRIMARY CARE PHYSICIAN prox PSV 113 cm/s Right SFA Mid [...] Prox Peroneal Prox P 19 cm/s Right CATALOGUE MAKER Mid CATALOGUE MAKER Mid PSV 82.8 cm/s Tibial Post Rig ht Tibial Po 60 deg Right Tibial Po 60 deg Right CATALOGUE MAKER Prox CATALOGUE MAKER P kailey PSV 166 cm/s CATALOGUE MAKER Prox PSV 80 cm/sLeft TEAM PRIMARY CARE PHYSICIAN Dist TEAM PRIMARY CARE PHYSICIAN Dist PSV 58.7 cm/s Left SFA Dist [...] 142 cm/s VERONICA Prox PSV 142 cm/sRight TEAM PRIMARY CARE PHYSICIAN Dist TEAM PRIMARY CARE PHYSICIAN Dist PSV 114 cm/s Right Profunda Profunda PSV 104 cm/s Right SFA Dist SFA Dist PSV 97 cm/s Right CATALOGUE MAKER Prox 1 CATALOGUE MAKER Prox 1 PSV 151 cm/s Right CATALOGUE MAKER Prox 2 CATALOGUE MAKER Prox 2 PSV 166 cm/s Right CATALOGUE MAKER Mid 2 CATALOGUE MAKER Mid 2 PSV 79 cm/s Right CATALOGUE MAKER Distal CATALOGUE MAKER Distal PSV 233 cm/s Right VERONICA Prox VERONICA Prox PSV 79 cm/s Right VERONICA Mid VERONICA Mid PSV 103 cm/s Right VERONICA Dist 1 VERONICA Dist 1 PSV 77 cm/s Left Profunda Profunda PSV 122 cm/s Left Profunda 1 Profunda 1 PSV 142 cm/s Left Pop Dist Pop Dist PSV 69 cm/s Left Pop Dist 1 Pop Dist 1 PSV 61 cm/s Left CATALOGUE MAKER Prox CATALOGUE MAKER Prox PSV 189 cm/s Left CATALOGUE MAKER Mid CATALOGUE MAKER Mid PSV 34 cm/s Left CATALOGUE MAKER Distal CATALOGUE MAKER Distal PSV 15 cm/s Left VERONICA Mid [...] PSV 269 cm/s S igned 04/29/2019 11:36 PMTraciesolt Janessa MD, RPVIBarstow MethodistUs ankle brachial hvgsc7970-98-05 23:20:00Interface, Radiology Results In - 04/29/2019 11:20 PM [facility] Vascular Diagnostic Laboratory Physiologic Arterial Leg Report [address] [place] [address] Pat.Name: DUONG BAUTISTA Pat.ID: [id number] .Date: 04/29/2019 Refer.MD: TREMAYNE CALLE MD Exam Time: 7:13:00 PM Study Type:Physiologic Leg Height: 72in Weight: 175lb BSA: 2.01 m2 Age: 8 1955,63Y Sex: MALE Sonogrphr: CHELSEA Castellon, Jake Pierre. Stat.:Inpatient Room: ED34 Tape Vol: VM, CPT - 4: 00654 Echo Event ID:[id number] Order ID: [id number] Reason for Study:Leg pain and discoloration bilateraly. [...] index in the right falls into the fhontovu-on-vv verecategory. 4. Toe/brachial index in the left [...] index in the right falls into the lhwffrti-mc-fzwgtaepricnst. 4. Toe/brachial index in the left was unable to be obtained due toamputation.------ FINDINGS: Linda d 04/29/2019 11:20 Marilu Riddle MD, RPVIHouston MethodistType and screen 2019-04-29 19:35:00* Test Item Value Reference Range Interpretation Comments ABO grouping (test code = 883-9) A Rh type (test code = 94061-9) POS Antibody screen (gel) (test code = 890-4) NEG [facility] MethodistComprehensive metabolic ktwnc2443-49-46 18:43:33* Test Item Value Reference Range Interpretation Comments Sodium (test code = 2951-2) 142 135- 148 mEq/L Potassium (test code = 2823-3) 4.8 3.5- 5.0 mEq/L Chloride (test code = 2075-0) 93 98- 112 mEq/L L CO2 (test code = 2027-9) 30 24- 31 mEq/L Anion gap (test code = 23998-2) 19@ANIO 7- 15 mEq/L H BUN (test code = 3094-0) 45 mg/dL 8-23 H Creatinine (test code = 2160-0) 9.78 mg/dL 0.7-1.2 H Glucose (test code = 2345-7) 285 mg/dL 65-99 H Calcium (test code = 46804-6) 7.8 mg/dL 8.8-10.2 L Protein (test code = 2885-2) 7.7 g/dL 6.3-8.3 Ixnkszc5087.6-7.0 g/dL1 vfpu6028.4-7.6 g/dL7 months-1hafy587.1-7.3 g/dL1-2 shphu473.6-7.5 g/dL>3 bwhau000.0-8.0 g/aQ47-4696900.3-8.3 g/dL Albumin (test code = 1751-7) 3.4 g/dL 3.5-5 L A/G ratio (test code = 1759-0) 0.8 0.7-3.8 Alkaline phosphatase (test code = 6768-6) 128 U/L 40-129 AST (test code = 1920-8) 19 U/L 10-50 ALT (test code = 1742-6) 8 U/L 5-50 Total bilirubin (test code = 1974-) 0.5 mg/dL 0-1.2 Lab Interpretation (test code = 49338-6) Abnormal [facility] MethodistPartial thromboplastin time, zgikehayi6874-07-24 18:36:20* Test Item Value Reference Range Interpretation Comments PTT (test code = 28575-1) 38.4 23.0- 36.0 sec H PTT therapeutic range for unfractionated heparin is61.0-112.0 seconds which corresponds to Anti-Xa0.3-0.7 U/ml. Lab Interpretation (test code = 42578-1) Abnormal [place] MethodistProthrombin time with EMO1151-81-63 18:35:28* Test Item Value Reference Range Interpretation Comments Prothrombin time (test code = 5902-2) 14.3 11.5- 14.5 sec INR (test code = 29344-4) 1.1 Th e International Normalized Ratio (INR) is a therapeutic monitoring tool for patients who are stable on oral anticoagulant therapy. An INR of 2.0-3.0 is suggested for deep vein thrombosis/pulmonary embolism. [facility] ED Preliminary Interpretation - Not an Cevre8788-57-87 17:43:51* Test Item Value Reference Range Interpretation Comments ANDRES (test code = ANDRES) Tremayne Calle MD 5:28 [facility] ED Preliminary Interpretation - Not an OrderPerformed by: Tremayne Calle MDAuthorized by: Tremayne Calle MD ECG reviewed by ED Physician in the a bsence of a furnace checker: yes Interpretation: Interpretation: abnormal Rate: ECG rate: 66 ECG rate assessment: normal Rhythm: Rhythm: sinus rhythm Ectopy: Ectopy: none QRS: QRS axis: Left QRS intervals: NormalConduction: Conduction: abnormal Abnormal conduction: complete RBBB ST segments: ST segments: NormalT waves: T waves: inverted Inverted: J5Timmd findings: Other findings: LAE Lab Interpretation (test code = 30786-9) Abnormal [facility] MethodistMagn[facility] ugkpf5891-11-32 07:26:32* Test Item Value Reference Range Interpretation Comments Magnesium (test code = 05998-0) 2.0 mg/dL 1.6-2.4 [place] ZywbltgeeBgtomqwz3651-14-93 09:53:48* Test Item Value Reference Range Interpretation Comments Troponin (test code = 81955-1) 0.662 ng/mL 0-0.04 H In patients suspected [...] 0.020 ng/mL Lab Interpretation (test code = 37723-7) Abnormal [facility] lab yntvqcvkn4703-85-38 17:40:33Addendum by Edy Lugo MD on 04/26/2019 5:10 PMModerate conscious sedation was administered from 14:24 ( time) with physician monitoring of patient consciousness, O2 saturation, BP, HR for a total duration of [address] Lugo was present and scrubbed in for entire duration of case. PROCEDURES PERFORMEDSelective coronary angiographyPCI of LAD PRIMARY OPERATORAlpesmisty Lugo MD FELLOWCath fellow- Marie Jurado MDInterventional Fellow- Neo [...] REPORT Interventional Fellow: Edouard Ortiz EQUIPMENT/ANTICOAGULATION: Ri ght Common Femoral Aqduuq5Q Sheath XB LAD 3.5 Guide Catheter Noam Blue coronary wire Anticoagulation: Angiomax bolus and Infusion with ACT >250 sec prior to procedure PROCEDURAL DETAILS: The LMT was engaged with the XB 3.5 Guide Catheter and a Noam Blue coronary wire was advanced into the distal LAD. The lesion in the proximal LAD was pre-dilated with a 3.25 x 10mm Hopkins cutting balloon at 8 elodia and stented [...] large and is bifurcating. Mild ( 30%) wallace nosis just proximal to bifurcation.RCA- Minimal diffuse [...] Fellow: Edouard Ortiz EQUIPMENT/ANTICOAGULATION: Right Common Femoral Tgnmwb4Y Sheath XB LAD 3.5 Guide Catheter Noam Blue coronary wire Anticoagulation: Ang iomax bolus and Infusion with ACT >250 sec prior to procedure PROCEDURAL DETAILS: The LMT was engaged with the XB 3.5 Guide Catheter and a Noam Blue coronary wire was advanced into the distal LAD. The lesion in the proximal LAD was pre-dilated with a 3.25 x 10mm Hopkins cutting balloon at 8 elodia and stented [...] modification. Cardiac rehabilitation. 4. Transferred in stable conditionBarstow MethodistActivated clotting kkhz9737-37-20 14:57:14* Test Item Value Reference Range Interpretation Comments Activated clotting time (test code = 5298) 436 96- 152 sec H Drying Can Worker Name: Robbin MhoamudIsaac ID: [id number] Lab Interpretation (test code = 30068-1) Abnormal [facility] MethodistAnti Xa, idamtlnrxynjgg5207-76-28 07:45:08* Test Item Value Reference Range Interpretation Comments Anti Xa, unfractionated (test code = 3274-8) 0.29 U/mL 0.3-0.7 L Therapeutic Range: 0.30 - 0.70 U/mL Lab Interpretation (test code = 17086-5) Abnormal [place] MethodistEchocardiogram complete w contrast and 3D if ttkygb3249-53-83 16:31:00Interface, Radiology Results In - 04/21/2019 4:31 PM LEDGE MAN Echocardiography Report [id number] [address], [place] [address] Pat.Name: DUONG BAUTISTA.ID: [id number] .Date: 04/21/2019 Refer.MD: MINH BOBBY MD Exam Time: 9:40:00 AM Study Type:Routine Echo Height: 72in Weight: 184lb BSA: 2.06 m2 Age: 8 1955,63Y Sex: MALE BP: 141/79 HR: 58 bpm Sonogrphr: Loly Kennedy RDCS Pat. Stat.:Inpatient Room: ED25 Study Status:Final Echo Event ID:[id number] Order ID: [id number] Reason for Study:Type II [facility] History / Clinical:Diabetes, Hypertension, Peripheral VascularDisease, Degenerative [...] estimate PA systolic pressure. --MEASUREMENTS: 2DParasternal Long [place] Ao An 2.4 cm LVPWd 1.1 cm [...] pkA 73 cm/s Signed 04/21/2019 04:31 Drew BarahonaistHepatitis B surface antigen 2019-04-21 15:00:45* Test Item Value Reference Range Interpretation Comments Hepatitis B surface Ag (test code = 5195-3) Non-reactive Non-reacti ve Ryne SantanaistB natriuretic uxjdcuu6632-22-98 04:14:42* Test Item Value Reference Range Interpretation Comments BNP (test code = 90560-5) 1151 pg/mL 0-100 H ANDRES (test code = ANDRES) ___GLU_ results called to an d read back by _SUZY CRANDALL\\ROBINA(name/location)at __ 04/21/2019 03:48 (date/time) by __LSB. Lab Interpretation (test code = 00947-6) Abnormal [facility] MethodistXR Chest 1 Vw Uawlmdcr1317-24-10 03:06:29Hm Interface, Radiology Results Incoming - 04/21/2019 [...] base minimal atelectasis. Otherwise no acute infiltrate identified.[facility]-[id number] MethodistCTA Abdominal Aorta And Bilateral Iliofemoral Runoff [...] are also presen t throughout the peroneal artery.[facility]-PI51GRBWAjwammj MethodistSe[facility] antigen sjpbb9911-21-97 07:37:59* Test Item Value Reference Range Interpretation Comments SAB serum ID (test code = 5866) [id number] SAB serum collection D&T (test code = 5867) 01/11/2019 07:10 AM SAB class I antibody assignment (test code = 5870) B37 SAB cPRA class I (test code = 5868) 2 SAB class II antibody assignment (test code = 5871) Negative SAB cPRA class II (test code = 5869) 0 Case number (test code = 9446630) [id number] Single antigen beads (test code = 4604) See link below for PDF Lab Report [place] MethodistSplint Ofmxqgjkqre3983-84-07 21:09:38Nikole Esteban NP 01/05/2019 9:10 PMSplint ApplicationPerformed by: Nikole Esteban NPAuthorized by: Devan Rhodes DO Consent: Consent obtained: Verbal Consent given by: Patient Risks discussed: Skin discoloration, distal paresthesia, pain and swelling Alternatives discussed: Delayed treatment, alternative treatment and observationPre-procedure details: Sensation: NormalProcedure details: Location: Foot Splint type: Short leg Supplies: O fyyu-QdwafFgej-zwywkwpng details: Pain: Improved Sensation: Normal Patient tolerance of procedure: Tolerated well, no immediate complicationsHoupondville state hospital MethodistLaceration Ixebsf1195-54-45 19:58:55Devan Rhodes DO 01/06/2019 6:25 AMLaceration RepairPerformed [...] of procedure: Tolerated well, no immediate compl icationsHoupondville state hospital EstheristClostridium Difficile Toxin A & P4347-35-51 13:01:00* Test Item Value Reference Range Interpretation Comments Clostridium Difficile Toxin A & B (test code = 440222682) NEGATIVE NEGATIVE Criteria was met after checking with SUZY BOLDEN --- 01/04/19 1301 ---C DIFF A&B PROB previously reported as: NEGATIVE Testing on stool aspirate specimens is outside hardwood floor layer claims since specimen type not validated on this assay. [facility] Jxpvmjd7418-59-41 14:14:00* Test Item Value Reference Range Interpretation Comments Blood Culture (test code = 91797241) NO GROWTH AFTER 5 DAYS, FINAL REPORT [facility] HospitalFOOT LEFT AP [id number] 20:40:00 [facility] [address] [place] [address] Patient Name: DUONG BAUTISTA MR #: [id number] : 1955 Age/Sex: 63/M Req #: [id number] Adm Physician: ANGELITA ESQUIVEL MD Ordered by: SAVANNA MO DPM Report #: [id number] Location: MED/SURG Room/Bed: [facility] Procedure: [id number] DX/F OOT LEFT AP LAT Exam Date: [...] COPY TO: SAVANNA MO DPM CHEST 2 MRIAZ4364-55-06 11:23:[address] [address] Patient Name: DUONG BAUTISTA MR #: [id number] : 1955 Age/Sex: 63/M Req #: [id number] Adm Physician: ANGELITA ESQUIVEL MD Ordered by: SAVANNA MO DPM Report #: [id number] Location: MED/SURG2 Room/Bed: [facility] Procedure: [id number] DX/C HEST 2 VIEWS Exam Date: Exam [...] TO: SAVANNA MO DPM FOOT LEFT AP [id number] 15:14:[address] [address] Patient Name: DUONG BAUTISTA MR #: [id number] : 1955 Age/Sex: 63/M Req #: [id number] Adm Physician: ANGELITA ESQUIVEL MD Ordered by: ANUP ZEE MD Report #: [id number] Location: [facility] Room/Bed: [address] [place] [address] Procedure: 1022-005 0 DX/FOOT LEFT AP LAT Exam Date: 12/29/18 Exam Chuckie e: 145 REPORT STATUS: Signed EX AMINATION: FOOT LEFT [...] COPY TO: ANUP ZEE MD HLA allogeneic cfvnlccapd5454-62-36 21:16:59* Test Item Value Reference Range Interpretation Comments [facility] interpretation (test code = 5945) Results called to Júnior Gutiérrez on 11/04/2018 at 9:15 om by Venkat Palacio. Verbal read-back obtained. [facility] source (test code = 5886) Peripheral Blood [facility] donor full name (test code = 5884) UNOS, [id number] [facility] donor MRN (test code = 5885) [id number] [facility] current serum ID (test code = 5890) [id number] [facility] serum collection D&T (test code = 5887) 10/14/2018 11:28 AM [facility] flow XM T cell result, current (test code = 5888) Negative [facility] flow XM B cell result, current (test code = 5889) Negative Case number (test code = 1648208) [id number] HLA crossmatch (test code = 127) See link below for PDF Lab Report Ryne Thrasher
[2019-07-29] MEDS ORDERED: ACETAMINOPHEN 325 MG TAB PO PRN (18:30)
[2019-07-29] MEDS ORDERED: DEXTROSE 50% SYRINGE 50 ML IV PRN (18:30)
[2019-07-29] MEDS ORDERED: NON-FORMULARY MEDICATION ([Hydrocodone/Apap 10MG-325MG] 1 EA) PO PRN (18:30)
[2019-07-29] MEDS ORDERED: HYDRALAZINE HCL 20 MG/ML VIAL IV PRN (18:30)
[2019-07-29] MEDS ORDERED: MELATONIN 5 MG TABLET PO PRN (18:45)
--- NOTE | 2019-07-29 19:11 | Diagnostic Imaging Report ---
Exam: Left foot series, 3 views. Clinical History: Bone infection, suspect osteomyelitis Comparison: None. Findings: 3 views of the left foot. There is decreased bone mineralization. Negative for acute, displaced fracture or dislocation. Amputation of the first toe at the level of the mid diaphysis of the proximal phalanx. Questionable cortical erosion in the distal tip of the distal phalanx of the second toe. Cortical loss at the lateral aspect of the base of the second toe middle phalanx. No other definite areas of cortical erosion or destruction. Vascular calcifications. Soft tissue swelling in the dorsal aspect of the foot. Impression: 1. Findings in the second toe middle phalanx and possibly distal phalanx highly suspicious for osteomyelitis. Signed by: Dr. Patrick Kearns M.D. on 07/29/2019 7:08 PM
[2019-07-29] MEDS: INSULIN LISPRO 100 UNIT/1 ML 3ML VIAL SQ SCH (21:00)
[2019-07-29] MEDS ORDERED: ZOLPIDEM TARTRATE 5 MG TAB PO SCH (21:00)
[2019-07-29] MEDS: ATORVASTATIN 40 MG TAB PO SCH (21:00)
[2019-07-29] MEDS ORDERED: INSULIN GLARGINE 15 UNIT SQ SCH (21:00)
[2019-07-29] MEDS ORDERED: NON-FORMULARY MEDICATION ([Atorvastatin] 40 MG) PO SCH (21:00)
[2019-07-29] MEDS: INSULIN GLARGINE 100 UNITS/ML VIAL SQ SCH (21:00)
[2019-07-29 21:47] VITALS: BP 184/90
--- NOTE | 2019-07-29 22:00 | NUR ---
63 YR OLD MALE RECEIVED FROM ER( FROM [facility]) VIA STRETCHER . PT IS ALERT AND ORIENTED X3. TELE ON. RESPIRATIONS ARE EVEN AND UNLABORED. HX BKA RT. GANGRENE,OSTEOMYLITIS LEFT FOOT. DRESSING TO LEFT FOOT.- DRY AND INTACT.DM ACCUCHECK AT 2230 295. RT AV FISTULA IN RT UPPER A5RM.BRUIT AND THRILL PRESENT.PT TO BE ON BEDREST. BKA 1 MONTH AGO - PT DOES NOT HAVE PROSTHESIS.HX DM.HYDRALAZINE GIVEN IN ER FOR HTN.DAUGHTER AT BEDSID. 20 G SL IN RT AC. ORIENTED PT AND FAMILY TO MEDSURG 2. CALL LIGHT WITHIN REACH.BED IN LOW POSITION.
[2019-07-29 23:00] VITALS: BP 184/90
[2019-07-29 23:46] VITALS: BP 184/90
[2019-07-30] VITALS (8 sets, daily range): BP systolic 147–177; BP diastolic 70–89
[2019-07-30] MEDS: HYDROCODONE/APAP 10MG-325MG TAB PO PRN ×2 (01:04→17:31)
[2019-07-30] MEDS ORDERED: FAMOTIDINE 20 MG/2 ML VIAL IV SCH (06:00)
[2019-07-30] MEDS: FAMOTIDINE 20 MG/2 ML VIAL IV SCH (06:30)
[2019-07-30] MEDS ORDERED: ISOSORBIDE MONO30 MG PO (07:50)
[2019-07-30] MEDS ORDERED: GABAPENTIN100 MG PO (07:50)
[2019-07-30] MEDS ORDERED: PENTOXIFYLLINE (07:50)
[2019-07-30] MEDS ORDERED: CLONIDINE HCL0.2 MG PO (07:50)
[2019-07-30] MEDS ORDERED: ULTRAM 50MG50 MG PO (07:50)
[2019-07-30] MEDS ORDERED: CEFALEXIN PO (07:55)
[2019-07-30] MEDS ORDERED: DOXYCYCLINE HY100 MG PO (07:55)
[2019-07-30] MEDS ORDERED: FOSRENOL1000 MG PO (07:55)
[2019-07-30] MEDS: CINACALCET 30 MG TAB PO SCH ×3 (08:43→17:19)
[2019-07-30] MEDS: METOPROLOL TARTRATE 50 MG TAB PO SCH ×2 (08:44→17:20)
[2019-07-30] MEDS: INSULIN LISPRO 100 UNIT/1 ML 3ML VIAL SQ SCH ×4 (08:44→22:50)
[2019-07-30] MEDS: AMLODIPINE BESYLATE 10 MG TAB PO SCH (08:45)
[2019-07-30] MEDS: PREGABALIN 75 MG CAP PO SCH (08:45)
[2019-07-30] MEDS ORDERED: CEFEPIME 1GM/NS 0.9% 50 ML 50 ML IV SCH (09:15)
[2019-07-30] MEDS ORDERED: VANCOMYCIN 1GM/NS 250 ML 250 ML IV SCH ×2 (09:30→16:00)
[2019-07-30] MEDS: CEFEPIME 1GM/NS 0.9% 50 ML 50 ML IV SCH (10:17)
[2019-07-30] MEDS ORDERED: SODIUM CHLORIDE 0.9% 250ML 250 ML ONE (10:19)
--- NOTE | 2019-07-30 10:33 | Consultation ---
DATE OF CONSULTATION: 07/30/2019 REASON FOR CONSULTATION: Grade 4 ulcer with gangrenous changes to the forefoot aspect of left foot with cellulitis and peripheral arterial disease. HISTORY OF PRESENT ILLNESS: This is a pleasant 63-year-old Afro-Vincentian male, who is very well known to me from following up in the office and previous admissions. He has had a nonhealing ulcer to the distal aspect of the 2nd toe for approximately 4-5 months now, getting worse, initially started with foul smell. Ulcer has been debrided several times in the office down to bone. The foul smell seems to be subsiding, but the discoloration to the forefoot aspect of left foot has gotten worse. He is denying any history of fever, chills, nausea, or vomiting. PAST MEDICAL HISTORY: Remarkable for insulin-dependent diabetes x20+ years, end-stage renal disease x18, hypertension, congestive heart failure, and hypercholesteremia with peripheral neuropathy and peripheral arterial disease. PAST SURGICAL HISTORY: Remarkable for right BKA, left great toe partial amputation with angioplasties of the left lower extremity. ALLERGIES: TO IODINE CONTRAST. CURRENT MEDICATIONS: Note listed in chart. SOCIAL HISTORY: Denies any smoking, drinking, or recreational drug use, has two kids. He is . FAMILY HISTORY: Noncontributory. REVIEW OF SYSTEMS: CARDIAC: Denies any palpitations or arrhythmias. RESPIRATORY: Denies any shortness of breath or productive cough. GASTROINTESTINAL: Denies any diarrhea or constipation. VITAL SIGNS: Afebrile, pulse rate 73, respirations 18, blood pressure 147/70, and O2 saturation 100%. LABORATORY DATA: Noted. He has a white blood cell count of 10.99, hemoglobin 9.0, hematocrit 30.3 with a platelet count of 227. INR of 1.09. He has a blood glucose of 363. PODIATRIC PHYSICAL EXAMINATION: VASCULATURE: Pedal pulses of both the DP and PT of the left lower extremity are barely to nonpalpable. SKIN: Temperature warm to touch distally to the metatarsophalangeal joint. NEUROLOGICAL: Reveals complete loss of protective sensation when utilizing [place]-Max 5.07 monofilament wire. MUSCULOSKELETAL: Muscle mass to be wasted to the left lower extremity. Muscle strength to be 4/5 to all muscle groups. DERMATOLOGICAL: Reveals bone exposed to the 2nd toe left foot. Some foul smell present with a grade 4 ulceration measuring 1.5 to 2 cm in diameter. Discoloration noted to all toes with cellulitis up to the mid foot. IMAGING: X-rays were negative for any gas in the tissue and it is positive for osteomyelitic changes to the middle phalanx and distal phalanx of the 2nd toe, left foot. ASSESSMENT: Cellulitis, peripheral arterial disease, diabetic neuropathy, osteomyelitis with a grade 4 ulcer. PLAN: We will continue to treat conservatively with local wound care with diluted wet-to-dry Betadine. IV antibiotics such as vancomycin and cefepime. I will let the foot demarcate. The patient will be scheduled for surgical intervention on Friday morning. We will treat conservatively for now. The patient understands that no warrantees or guarantees can be given. If not responsive down the road, may need a woqim-rrt-gfnp amputation. KARY Bennett/QUIQUE /[id number]
[2019-07-30] MEDS ORDERED: SODIUM CHLORIDE 0.9% 1000ML 2,000 ML IV PRN (13:15)
--- NOTE | 2019-07-30 16:54 | Consultation ---
DATE OF CONSULTATION: 07/30/2019 HISTORY OF PRESENT ILLNESS: A 63-year-old Afro-Montenegrin gentleman, known to our Nephrology Service, dialyzes with my associate, Dr. Butt, has underlying history of diabetes, severe peripheral vascular disease, admitted with osteomyelitis of the toe, possible amputation. He recently had a right-sided BKA done. Has type 2 diabetes with an end-stage renal disease, retinopathy, neuropathy, history of congestive heart failure, peripheral neuropathy, peripheral artery disease, has underlying AV fistula. Also, history of renal osteodystrophy and anemia chronic kidney disease. ALLERGIES: TO IV CONTRAST AND HEPARIN. SOCIAL HISTORY: Does not smoke or drink. He has a supportive family. FAMILY HISTORY: Significant for diabetes. REVIEW OF SYSTEMS: Current review of systems is negative for nausea, vomiting, shortness of breath, fever, or chills. CURRENT MEDICATIONS: 1. He is on cefepime 1 g IV q.24. 2. He is also on vancomycin 1 g IV q.24. 3. He is on amlodipine 10 mg daily. 4. Atorvastatin 40 mg at bedtime. 5. Cinacalcet 60 mg once a day. 6. Pepcid injection IV daily. 7. Hydrocodone p.r.n. 8. Insulin. 9. Melatonin. 10. Metoprolol 100 mg p.o. b.i.d. 11. Lyrica 75 mg daily. 12. Tramadol p.r.n. 13. Zolpidem p.r.n. PHYSICAL EXAMINATION: GENERAL: Awake, alert, oriented x3, lying supine, in no apparent distress. VITAL SIGNS: Blood pressure 164/70, pulse rate 73, afebrile. HEAD AND NECK: Cornea clear. Mucosa moist. LUNGS: Bibasilar rales. HEART: S1, S2 audible. ABDOMEN: Soft, nontender. No apparent visceromegaly. EXTREMITIES: Right BKA. Left lower extremity, no edema. Dressing noted over foot. LABORATORY DATA: Labs show white count 10.9, hemoglobin 9. Sodium 137, potassium 4.5, creatinine 6.85. IMPRESSION AND PLAN: 1. Underlying diabetes. 2. End-organ damage. 3. End-stage renal disease. 4. Stable volume status. 5. Underlying hypertension. 6. Anemia. 7. Chronic kidney disease. 8. Secondary hyperparathyroidism. Plan on adjusting the dose of vancomycin to every Friday, Friday, Friday. We will start Renvela tablets with meals, fluid restriction, renal diet. Please see orders. MD DIPAK Cerna/QUIQUE /[id number]
[2019-07-30] MEDS: SEVELAMER CARBONATE 800 MG TAB PO SCH (17:21)
[2019-07-30] MEDS: VANCOMYCIN 1GM/NS 250 ML 250 ML IV SCH (17:23)
--- NOTE | 2019-07-30 18:05 | Consultation ---
DATE OF CONSULTATION: REASON FOR CONSULTATION: Gangrene of left foot. HISTORY OF PRESENT ILLNESS: This patient who is 63-year-old male, known to me, history of end-stage disease on dialysis, diabetes mellitus, neuropathy. The patient has hypertension, congestive heart failure, comes in with gangrene changes of the left toes. The patient has history of right BKA, left great toe partial amputation, angioplasty, had several peripheral vascular disease, for procedures comes in with gangrenous changes, they plan for him to have surgery on Friday for amputation. I am asked to see him. The patient is currently getting dialysis. Family at the bedside. REVIEW OF SYSTEMS: GENERAL: Just weak. HEENT: Negative. PULMONARY: Negative. CARDIAC: Negative. GI: Negative. SKIN: There is no rash except for what mentioned above. LABORATORY DATA: White count 10, hemoglobin 9.0. Sodium 137, potassium 4.5 creatinine 6.85. MEDICATIONS: The patient is currently on Sensipar, insulin, cefepime for a few day, amlodipine, metoprolol, atorvastatin. He received a dose of vancomycin. He is on vanc with dialysis. PHYSICAL EXAMINATION: GENERAL: He is currently alert, oriented, does not seem in acute distress. VITAL SIGNS: Stable, currently afebrile. HEENT: He is not icteric. NECK: Supple. CHEST: Clear. HEART: S1, S2. No S3, S4. No murmur. ABDOMEN: Soft. IMPRESSION: 1. Gangrene changes of the left foot. Recommend amputation. He probably end up with gtoii-pgo-mtwx amputation, but we will consult with Podiatry. 2. Agree with current choice of antibiotic at present time. 3. Peripheral vascular disease. 4. Diabetes mellitus with neuropathy. 5. Hypertension. 6. Atherosclerotic disease. 7. Chronic kidney disease. Discussed with the family. Further recommendations to follow. Continue IV antibiotic as ordered. MD HOLLIS Rouse/MODL /[id number]
[2019-07-30] MEDS ORDERED: ZOLPIDEM TARTRATE 5 MG TAB PO PRN (21:00)
[2019-07-30] MEDS: ATORVASTATIN 40 MG TAB PO SCH (22:15)
[2019-07-30] MEDS: INSULIN GLARGINE 100 UNITS/ML VIAL SQ SCH (22:50)
[2019-07-31] VITALS (7 sets, daily range): BP systolic 140–164; BP diastolic 64–93
[2019-07-31 05:55] LABS: BASOPHILS % 0.4 % (0.0-1.0); EOSINOPHILS # (AUTO) 0.3 (0.0-0.4); EOSINOPHILS % 3.3 % (0.0-6.0); HEMOGLOBIN 9.1 g/dL (14.0-18.0); LYMPHOCYTES # (AUTO) 0.9 (1.0-3.2); LYMPHOCYTES % 9.1 % (18.0-39.1); MEAN CORPUSCULAR HEMOGLOBIN 27.7 pg (28-32); MEAN CORPUSCULAR HGB CONC 29.4 g/dL (31-35); MEAN CORPUSCULAR VOLUME 94.2 fL (81-99); MONOCYTES % 9.3 % (4.4-11.3); NEUTROPHILS # (AUTO) 7.9 (2.1-6.9); NEUTROPHILS % 77.3 % (38.7-80.0); PLATELET COUNT 255 x10e3/uL (140-360); RED BLOOD COUNT 3.29 x10e6/uL (4.3-5.7); RED CELL DISTRIBUTION WIDTH 15.5 % (11.7-14.4)
[2019-07-31] MEDS: FAMOTIDINE 20 MG/2 ML VIAL IV SCH (06:20)
[2019-07-31 06:27] LABS: ALBUMIN 2.4 g/dL (3.5-5.0); ALBUMIN/GLOBULIN RATIO 0.5 (0.8-2.0); ANION GAP 18.4 mmol/L (8-16); CALCIUM 8.8 mg/dL (8.4-10.2); CREATININE, SERUM 5.62 mg/dL (0.72-1.25); MAGNESIUM 1.8 MG/DL (1.3-2.1); PHOSPHORUS 2.4 MG/DL (2.3-4.7); POTASSIUM 4.4 mmol/L (3.5-5.1)
--- NOTE | 2019-07-31 07:00 | NUR ---
Patient resting comfortably. No acute distress noted. Shift report given to oncoming nurse .
[2019-07-31] MEDS: INSULIN LISPRO 100 UNIT/1 ML 3ML VIAL SQ SCH ×4 (07:30→21:00)
[2019-07-31] MEDS: SEVELAMER CARBONATE 800 MG TAB PO SCH ×3 (09:53→16:33)
[2019-07-31] MEDS: PREGABALIN 75 MG CAP PO SCH (09:53)
[2019-07-31] MEDS: AMLODIPINE BESYLATE 10 MG TAB PO SCH (09:54)
[2019-07-31] MEDS: CEFEPIME 1GM/NS 0.9% 50 ML 50 ML IV SCH (09:54)
[2019-07-31] MEDS: METOPROLOL TARTRATE 50 MG TAB PO SCH ×2 (09:56→16:43)
[2019-07-31] MEDS: CINACALCET 30 MG TAB PO SCH ×3 (09:56→16:43)
[2019-07-31] MEDS: HYDROCODONE/APAP 10MG-325MG TAB PO PRN (10:53)
[2019-07-31 11:29] LABS: MONOCYTES % (MANUAL) 8 % (3.4-9.0); NEUTROPHILS % (MANUAL) 76 % (40-74)
[2019-07-31 11:30] LABS: BAND NEUTROPHILS % (MANUAL) 3 %; EOSINOPHILS % (MANUAL) 3 % (0-7); LYMPHOCYTES % (MANUAL) 10 % (19-48)
[2019-07-31 11:31] LABS: RBC MORPHOLOGY COMMENT NORMAL
[2019-07-31 11:46] LABS: PLATELET ESTIMATE ADEQUATE; PLATELET MORPHOLOGY COMMENT NORMAL
--- NOTE | 2019-07-31 15:28 | Progress Note ---
DATE: SUBJECTIVE: Mr. Bautista is doing well. There is no new complaint. REVIEW OF SYSTEMS: HEENT: Negative. PULMONARY: Negative. CARDIAC: Negative. PHYSICAL EXAMINATION: GENERAL: He is currently alert and oriented. Does not seem to be in acute distress. VITAL SIGNS: Stable, currently afebrile. HEENT: He is not icteric. NECK: Supple. CHEST: Clear. HEART: S1 and S2. No S3, S4, or murmur. ABDOMEN: Soft. EXTREMITIES: The leg still gangrenous changes noted. IMPRESSION: Continue with IV antibiotic. Recommend amputation. Surgery is on Friday. Podiatry is following. We will follow. MD HOLLIS Rouse/QUIQUE /[id number]
--- NOTE | 2019-07-31 15:53 | Progress Note ---
DATE: 07/31/2019 SUBJECTIVE: The patient at bedside, in no distress. Denying history of fever, chills, nausea, or vomiting. OBJECTIVE: VITAL SIGNS: Afebrile, pulse rate 78, respirations 20, blood pressure 164/64, O2 saturation 99%. EXTREMITIES: Ulceration to the distal aspect 2nd toe left foot, getting a little bit better. Decreased foul smell. Some drainage noted. Bone exposed with some necrosis. Decreased dorsiflexion of the knee with the knee extended as opposed to knee flex secondary to contracture of Achilles tendon. LABORATORY DATA: Noted. White blood cell count at 10.17, hemoglobin 9.1, hematocrit 31.1 with a platelet count of 255. INR of 1.09 with a blood glucose of 202. ASSESSMENT: Cellulitis, peripheral arterial disease, grade 4 ulcer with osteomyelitis with diabetic neuropathy. PLAN: We will continue IV antibiotics such as cefepime and vancomycin. We will continue local wound care with Bactroban followed by diluted wet-to-dry Betadine. Continue to let the foot demarcate before definitive surgical procedure will be done on Friday. KARY Bennett/QUIQUE /[id number]
--- NOTE | 2019-07-31 16:57 | NUR ---
Nutrition Screen Note RD Recommendation for Physician: -Recommend to continue renal/diabetic diet Plan of Care: RD following, monitoring for tolerance and adequacy Nutrition reason for involvement: Nutrition Risk Trigger MST 2 Primary Diagnose(s): left foot osteomyelitis PMH: end-stage disease on dialysis, diabetes mellitus, neuropathy, hypertension, congestive heart failure, right BKA, left great toe partial amputation, angioplasty, had several peripheral vascular disease Ht: 72 in Wt:180 lb BMI: 24.4 kg/m2 IBW:[address] Assessment: (07/30) Chart reviewed. Labs and meds reviewed. Pt is a 63 year old male admitted with left foot osteomyelitis. Pt reports eating about 50% of his meals for the past 2 says. Pt mentioned he usually weighs 182 lbs. No N/V/D/C or chewing/swallowing issues. Will continue to monitor unless consulted sooner Current Diet: renal/diabetic Malnutrition Evaluation (07/31/19) The patient does not meet criteria for a specified degree of malnutrition at this time. Will re-evaluate at follow-up as appropriate. Diet Education Needs Assessment: Pt declined diet education materials at time of visit Nutrition Care Level: low Signed: Ada Etienne, RD, LD
--- NOTE | 2019-07-31 19:11 | NUR ---
report given to oncoming nurse, walking rounds compete, pt stable at this time.
--- NOTE | 2019-07-31 19:20 | NUR ---
Patient received asleep in bed. Arousable to tactile stimuli. No signs of pain or respiratory distress. Safety measures implemented. Call light within reach.
[2019-07-31] MEDS: ATORVASTATIN 40 MG TAB PO SCH (20:33)
[2019-07-31] MEDS: INSULIN GLARGINE 100 UNITS/ML VIAL SQ SCH (21:00)
[2019-08-01] VITALS (7 sets, daily range): BP systolic 112–163; BP diastolic 56–80
[2019-08-01] MEDS: HYDROCODONE/APAP 10MG-325MG TAB PO PRN ×2 (04:45→13:03)
[2019-08-01 06:11] LABS: BASOPHILS # (AUTO) 0.1 (0.0-0.1); BASOPHILS % 0.5 % (0.0-1.0); EOSINOPHILS # (AUTO) 0.3 (0.0-0.4); EOSINOPHILS % 2.9 % (0.0-6.0); HEMATOCRIT 34.3 % (38.2-49.6); HEMOGLOBIN 10.1 g/dL (14.0-18.0); LYMPHOCYTES % 9.7 % (18.0-39.1); MEAN CORPUSCULAR HEMOGLOBIN 27.7 pg (28-32); MEAN CORPUSCULAR HGB CONC 29.4 g/dL (31-35); MONOCYTES # (AUTO) 0.9 (0.2-0.8); MONOCYTES % 8.3 % (4.4-11.3); NEUTROPHILS # (AUTO) 8.3 (2.1-6.9); NEUTROPHILS % 78.1 % (38.7-80.0); PLATELET COUNT 249 x10e3/uL (140-360); RED BLOOD COUNT 3.65 x10e6/uL (4.3-5.7); RED CELL DISTRIBUTION WIDTH 15.7 % (11.7-14.4)
[2019-08-01] MEDS: FAMOTIDINE 20 MG/2 ML VIAL IV SCH (06:20)
[2019-08-01 06:26] LABS: ALBUMIN 2.4 g/dL (3.5-5.0); ALBUMIN/GLOBULIN RATIO 0.5 (0.8-2.0); ALKALINE PHOSPHATASE 79 IU/L (40-150); ANION GAP 20.7 mmol/L (8-16); BLOOD UREA NITROGEN 34 mg/dL (7-26); BUN/CREATININE RATIO 5 (6-25); CALCIUM 8.8 mg/dL (8.4-10.2); CARBON DIOXIDE 21 mmol/L (22-29); CHLORIDE 103 mmol/L (98-107); EST GLOMERULAR FILTRATION RATE 9 ML/MIN (60-); GLUCOSE 141 mg/dL (74-118); POTASSIUM 4.7 mmol/L (3.5-5.1); SODIUM 140 mmol/L (136-145)
[2019-08-01 06:32] LABS: ALANINE AMINOTRANSFERASE < 6 IU/L (0-55)
--- NOTE | 2019-08-01 07:00 | NUR ---
Walking rounds done. Bedside report given to oncoming nurse regarding patient's status.
[2019-08-01] MEDS: METOPROLOL TARTRATE 50 MG TAB PO SCH ×2 (09:00→16:48)
[2019-08-01] MEDS: AMLODIPINE BESYLATE 10 MG TAB PO SCH (09:00)
[2019-08-01] MEDS: CEFEPIME 1GM/NS 0.9% 50 ML 50 ML IV SCH (09:48)
[2019-08-01] MEDS: SEVELAMER CARBONATE 800 MG TAB PO SCH ×3 (09:48→16:43)
[2019-08-01] MEDS: PREGABALIN 75 MG CAP PO SCH (09:48)
[2019-08-01] MEDS: CINACALCET 30 MG TAB PO SCH ×3 (09:48→16:43)
[2019-08-01] MEDS: INSULIN LISPRO 100 UNIT/1 ML 3ML VIAL SQ SCH ×4 (11:30→20:52)
--- NOTE | 2019-08-01 18:07 | Progress Note ---
DATE: SUBJECTIVE: Mr. Bautista is lying in bed comfortably. There is no new complaint. Discussed with Podiatry. The plan for him to have surgery on Friday, . His cultures showing Proteus vulgaris, but the patient has a gangrene wound really. REVIEW OF SYSTEMS: Otherwise unremarkable. PHYSICAL EXAMINATION: GENERAL: He is currently alert and oriented. Does not seem to be in acute distress. VITAL SIGNS: Stable, currently afebrile. HEENT: He is not icteric. NECK: Supple. CHEST: Clear. HEART: S1 and S2. No S3, S4, or murmurs. ABDOMEN: Soft. EXTREMITIES: No edema. The leg still gangrenous changes noted in the foot. Discussed with Dr. Da Silva. IMPRESSION: 1. Peripheral vascular disease, grade 4 ulcer, osteomyelitis, diabetic neuropathy, gangrene. He is to continue local care, continue antibiotic, TMA on Friday. 2. Hypertension. 3. Hypercholesterolemia. 4. End-stage renal disease. He is on cefepime and vancomycin as ordered at renal dose. 5. Anemia of chronic disease. 6. We will follow. MD HOLLIS Rouse/QUIQUE /[id number]
--- NOTE | 2019-08-01 18:42 | Consultation ---
DATE OF CONSULTATION: 08/01/2019 SUBJECTIVE: The patient is seen at bedside, accompanied by a daughter, in good spirits. Denying any history of fever, chills, nausea, or vomiting. OBJECTIVE: VITAL SIGNS: Afebrile, pulse rate 79, respiration 18, blood pressure 146/74, and O2 saturation 100%. EXTREMITIES: Ulcerations to the 2nd toe left foot, getting a little bit better. Decreased foul smell. There is edema to the forefoot and aspect of the left lower extremity with black discoloration to all digits of the left foot. There is decreased dorsiflexion with the knee extended as opposed to knee flex. LABORATORY DATA: Noted. White blood cell count 10.5, hemoglobin 10.0, hematocrit 34.3 with a platelet count of 249. Blood glucose of 198. Last INR was done on 07/28 with INR of 1.09. ASSESSMENT: Equinus deformity, osteomyelitis, grade 4 ulcer with cellulitis and peripheral arterial disease. PLAN: We will continue local wound care. Continue IV antibiotics such as vancomycin and cefepime. Continue offloading. The patient will be scheduled for surgical intervention and definitive procedure to be done on Friday. The patient and the patient's daughter understand that no warrantees or guarantees can be given. If not responsive, may end up with [id number] amputation. KARY Bennett/QUIQUE /[id number]
--- NOTE | 2019-08-01 19:14 | NUR ---
walking rounds complete, pt stable, report given to on coming nurse.
[2019-08-01] MEDS: ATORVASTATIN 40 MG TAB PO SCH (20:52)
[2019-08-01 20:53] LABS: INR 1.06; PROTHROMBIN TIME 14.5 seconds (11.9-14.5)
[2019-08-01] MEDS: INSULIN GLARGINE 100 UNITS/ML VIAL SQ SCH (20:53)
[2019-08-02] VITALS (9 sets, daily range): BP systolic 116–157; BP diastolic 51–83
--- NOTE | 2019-08-02 05:30 | NUR ---
Dressing changed per MD orders to left foot, tolerated well.
[2019-08-02] MEDS: FAMOTIDINE 20 MG/2 ML VIAL IV SCH (05:48)
--- NOTE | 2019-08-02 07:13 | NUR ---
Bedside report and walking rounds. Patient in bed with call light within reach. No issues or concerns noted.
[2019-08-02] MEDS: INSULIN LISPRO 100 UNIT/1 ML 3ML VIAL SQ SCH ×4 (07:30→21:28)
[2019-08-02] MEDS: SEVELAMER CARBONATE 800 MG TAB PO SCH ×3 (09:13→17:22)
[2019-08-02] MEDS: METOPROLOL TARTRATE 50 MG TAB PO SCH ×2 (09:13→17:23)
[2019-08-02] MEDS: AMLODIPINE BESYLATE 10 MG TAB PO SCH (09:13)
[2019-08-02] MEDS: CINACALCET 30 MG TAB PO SCH ×3 (09:13→17:22)
[2019-08-02] MEDS: PREGABALIN 75 MG CAP PO SCH (09:13)
[2019-08-02] MEDS: CEFEPIME 1GM/NS 0.9% 50 ML 50 ML IV SCH (10:09)
--- NOTE | 2019-08-02 10:15 | Progress Note ---
DATE: SUBJECTIVE: The patient is seen and evaluated. Available labs and notes reviewed. Discussed with Dr. Delgadillo. REVIEW OF SYSTEMS: No nausea, vomiting, fever, chills, chest pain, shortness of breath, headache, rash, dysuria. Left foot/toe pain, controlled. PHYSICAL EXAMINATION: VITAL SIGNS: Temperature 97.6, pulse 65, respirations 18, and blood pressure 150/72. GENERAL: Alert and oriented. CV: S1-S2. CHEST: Equal expansion. Clear to auscultation. No acute distress. ABDOMEN: Soft, nontender. No distention. HEENT: Moist. No pallor. No JVD. EXTREMITIES: Left foot 2nd toe tip with necrotic wound. No active drainage expressed during my exam. It does not seem that tender. MEDICATIONS: Reviewed. From Infectious Disease point of view, the patient is on cefepime and vancomycin.. LABORATORY STUDIES: No new CBC and no new BMP from today. SEROLOGY: Coronavirus PCR not detected on 07/28. MICROBIOLOGY: On 07/28, blood culture negative so far 72 hours. 07/29 foot culture showed Proteus vulgaris, which is sensitive to cefepime. ASSESSMENT AND PLAN: 1. Grade 4 ulcer, left 2nd toe. 2. Osteomyelitis. 3. Diabetes. 4. Diabetic neuropathy. 5. Gangrene wound. 6. Peripheral vascular disease. 7. Hypertension. 8. Hyperlipidemia. 9. End-stage renal disease. 10. Anemia of chronic disease. 11. Wound culture, Proteus vulgaris. 12. Continue with antibiotics as above, pending surgical procedure tomorrow for TMA and may end off actually with BKA. Discussed with Dr. Delgadillo. Podiatry note reviewed. Continue to monitor the patient clinically. Follow up with the labs. Please refer to chart for more information. Dictated by Ry Betancur PA-C (Al) Darian Delgadillo MD /MODL /[id number]
[2019-08-02] MEDS ORDERED: SODIUM CHLORIDE 0.9% 1000ML 2,000 ML IV PRN (11:30)
[2019-08-02] MEDS ORDERED: SODIUM CHLORIDE 0.9% 250ML 500 ML IV PRN (11:30)
[2019-08-02] MEDS ORDERED: BISACODYL 5 MG TAB EC PO PRN (11:45)
[2019-08-02] MEDS ORDERED: LACTULOSE SYRUP 20 GM/30 ML UDC PO PRN (11:45)
[2019-08-02] MEDS: EPOETIN ALFA-EPBX 10,000 UNIT/ML VIAL SC SCH (12:45)
--- NOTE | 2019-08-02 15:31 | Progress Note ---
DATE: 08/02/2019 SUBJECTIVE: The patient is seen at bedside, getting dialyzed with daughter. Denying any history of fever, chills, nausea, or vomiting. OBJECTIVE: VITAL SIGNS: Afebrile, pulse rate 70, respirations 17, blood pressure 132/70, and O2 saturation 100%. LABORATORY DATA: Labs show a white blood cell count of 10.5 as of 07/31. INR of 1.06. Has cellulitis of the forefoot aspect of the left lower extremity, decreased dorsiflexion with the knee extended, opposed to knee flex with decreased foul smell to the 2nd toe left foot, bone exposed. ASSESSMENT: 1. Abscess cellulitis. 2. Peripheral arterial disease. 3. Equines deformity with dry gangrenous changes to multiple toes, left foot. PLAN: Proposed surgery plus risks and complications reviewed in great detail. The patient understands no warrantees or guarantees can be given. Both the patient and the patient's daughter were given time to ask questions. All questions were answered. Proposed surgery would be I and D of the left foot. Amputation of all toes with possible transmetatarsal amputation and rotational flap closure and also Achilles tendon lengthening. CBC with diff, potassium level, and CMP will be done after the patient gets dialyzed, be kept n.p.o. after midnight. Surgery scheduled for tomorrow at 7:00 a.m. KARY Bennett/QUIQUE /[id number]
[2019-08-02] MEDS: HYDROCODONE/APAP 10MG-325MG TAB PO PRN (16:00)
--- NOTE | 2019-08-02 16:00 | NUR ---
TOLERATED DIALYSIS WELL. 3.5 LITERS REMOVED. REQUESTS PAIN MEDS, SAME GIVEN. PATIENTS DAUGHTER AT BEDSIDE
[2019-08-02] MEDS: VANCOMYCIN 1GM/NS 250 ML 250 ML IV SCH (17:22)
--- NOTE | 2019-08-02 18:36 | NUR ---
DRESSING CHANGE TO LEFT DISTAL FOOT AND TOES COMPLETED ORDERED. PATIENT TOLERATED WELL. NO DRAINAGE NOTED
[2019-08-02 19:31] LABS: BASOPHILS % 0.3 % (0.0-1.0); EOSINOPHILS # (AUTO) 0.3 (0.0-0.4); EOSINOPHILS % 2.8 % (0.0-6.0); HEMATOCRIT 36.9 % (38.2-49.6); HEMOGLOBIN 10.2 g/dL (14.0-18.0); LYMPHOCYTES # (AUTO) 0.7 (1.0-3.2); LYMPHOCYTES % 8.2 % (18.0-39.1); MEAN CORPUSCULAR HEMOGLOBIN 28.1 pg (28-32); MEAN CORPUSCULAR HGB CONC 27.6 g/dL (31-35); MEAN CORPUSCULAR VOLUME 101.7 fL (81-99); MONOCYTES # (AUTO) 0.8 (0.2-0.8); MONOCYTES % 9.2 % (4.4-11.3); NEUTROPHILS # (AUTO) 7.1 (2.1-6.9); NEUTROPHILS % 78.9 % (38.7-80.0); PLATELET COUNT 207 x10e3/uL (140-360); RED BLOOD COUNT 3.63 x10e6/uL (4.3-5.7); RED CELL DISTRIBUTION WIDTH 15.5 % (11.7-14.4)
[2019-08-02 19:51] LABS: ALBUMIN 2.3 g/dL (3.5-5.0); ALBUMIN/GLOBULIN RATIO 0.5 (0.8-2.0); ALKALINE PHOSPHATASE 79 IU/L (40-150); ANION GAP 15.9 mmol/L (8-16); BLOOD UREA NITROGEN 25 mg/dL (7-26); BUN/CREATININE RATIO 4 (6-25); CALCIUM 7.8 mg/dL (8.4-10.2); CARBON DIOXIDE 24 mmol/L (22-29); CHLORIDE 100 mmol/L (98-107); CREATININE, SERUM 5.99 mg/dL (0.72-1.25); EST GLOMERULAR FILTRATION RATE 12 ML/MIN (60-); GLUCOSE 239 mg/dL (74-118); POTASSIUM 4.9 mmol/L (3.5-5.1); SODIUM 135 mmol/L (136-145)
[2019-08-02 19:58] LABS: ALANINE AMINOTRANSFERASE < 6 IU/L (0-55)
[2019-08-02] MEDS: INSULIN GLARGINE 100 UNITS/ML VIAL SQ SCH (21:00)
[2019-08-02] MEDS: ATORVASTATIN 40 MG TAB PO SCH (21:14)
[2019-08-03] VITALS (9 sets, daily range): BP systolic 117–148; BP diastolic 62–78
[2019-08-03] MEDS: HYDROCODONE/APAP 10MG-325MG TAB PO PRN ×2 (01:00→21:58)
[2019-08-03] MEDS: FAMOTIDINE 20 MG/2 ML VIAL IV SCH (05:19)
[2019-08-03 05:23] LABS: BASOPHILS # (AUTO) 0.1 (0.0-0.1); BASOPHILS % 0.5 % (0.0-1.0); EOSINOPHILS # (AUTO) 0.4 (0.0-0.4); EOSINOPHILS % 3.7 % (0.0-6.0); HEMATOCRIT 31.4 % (38.2-49.6); HEMOGLOBIN 9.3 g/dL (14.0-18.0); LYMPHOCYTES # (AUTO) 1.1 (1.0-3.2); LYMPHOCYTES % 11.2 % (18.0-39.1); MEAN CORPUSCULAR HEMOGLOBIN 27.7 pg (28-32); MEAN CORPUSCULAR HGB CONC 29.6 g/dL (31-35); MEAN CORPUSCULAR VOLUME 93.5 fL (81-99); MONOCYTES # (AUTO) 1.1 (0.2-0.8); MONOCYTES % 11.5 % (4.4-11.3); NEUTROPHILS # (AUTO) 7.2 (2.1-6.9); NEUTROPHILS % 72.7 % (38.7-80.0); PLATELET COUNT 231 x10e3/uL (140-360); RED BLOOD COUNT 3.36 x10e6/uL (4.3-5.7); RED CELL DISTRIBUTION WIDTH 15.6 % (11.7-14.4)
[2019-08-03 05:48] LABS: ALBUMIN 2.3 g/dL (3.5-5.0); ALBUMIN/GLOBULIN RATIO 0.5 (0.8-2.0); ALKALINE PHOSPHATASE 79 IU/L (40-150); ANION GAP 14.5 mmol/L (8-16); BLOOD UREA NITROGEN 26 mg/dL (7-26); BUN/CREATININE RATIO 4 (6-25); CALCIUM 7.5 mg/dL (8.4-10.2); CARBON DIOXIDE 27 mmol/L (22-29); CHLORIDE 102 mmol/L (98-107); CREATININE, SERUM 6.37 mg/dL (0.72-1.25); EST GLOMERULAR FILTRATION RATE 11 ML/MIN (60-); GLUCOSE 83 mg/dL (74-118); POTASSIUM 4.5 mmol/L (3.5-5.1); SODIUM 139 mmol/L (136-145)
[2019-08-03 05:52] LABS: ALANINE AMINOTRANSFERASE < 6 IU/L (0-55)
--- NOTE | 2019-08-03 06:45 | NUR ---
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 Patient stable and A&O. No issues noted. Patient leaving unit for procedure.
[2019-08-03] MEDS ORDERED: DEXAMETHASONE SOD PHOS INJ 4 MG/ML VIAL ONE ×2 (06:48→19:41)
[2019-08-03] MEDS ORDERED: BUPIVACAINE HCL 0.5% INJ 30 ML VIAL INJ ONE (06:48)
[2019-08-03] MEDS ORDERED: LIDOCAINE HCL 1% LOCAL INJ 20 ML VIAL ONE (06:48)
[2019-08-03] MEDS ORDERED: BACITRACIN 50,000 UNIT VIAL ONE (06:49)
[2019-08-03] MEDS ORDERED: BETAMETHASONE DISODIUM PHOS 6 MG/ML VIAL ONE (06:51)
--- NOTE | 2019-08-03 06:55 | NUR ---
Bedside report and walking rounds completed with on coming nurse. Patient off unit for procedure.
[2019-08-03] MEDS ORDERED: SODIUM CHLORIDE 0.9% 500ML 500 ML ONE (06:58)
--- NOTE | 2019-08-03 07:06 | NUR ---
off unit for surgery
[2019-08-03] MEDS: CINACALCET 30 MG TAB PO SCH ×4 (07:30→16:45)
[2019-08-03] MEDS: INSULIN LISPRO 100 UNIT/1 ML 3ML VIAL SQ SCH ×4 (07:30→21:00)
[2019-08-03] MEDS: SEVELAMER CARBONATE 800 MG TAB PO SCH ×4 (08:00→16:31)
[2019-08-03] MEDS ORDERED: MUPIROCIN 2% OINT 22 GM TUBE ONE (08:01)
[2019-08-03] MEDS: METOPROLOL TARTRATE 50 MG TAB PO SCH ×2 (09:52→16:31)
[2019-08-03] MEDS: PREGABALIN 75 MG CAP PO SCH (09:52)
[2019-08-03] MEDS: AMLODIPINE BESYLATE 10 MG TAB PO SCH (09:52)
[2019-08-03] MEDS: CEFEPIME 1GM/NS 0.9% 50 ML 50 ML IV SCH (09:53)
--- NOTE | 2019-08-03 10:26 | Diagnostic Imaging Report ---
X-ray left foot AP and lateral Comparison: 07/29/2019 History: Amputation Findings: The patient 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 There is also amputation of the distal lateral aspect of the first metatarsal. There is soft tissue swelling at the surgical site. There is no radiopaque foreign body. There is no soft tissue air. The bones are osteopenic. Atherosclerotic calcification of the distal tibial and pedal vessels is visualized. Impression: Status post amputation at the metatarsophalangeal joints and of the distal lateral aspect of the first metatarsal. Signed by: Michael Garcia MD on 08/03/2019 10:23 AM
--- NOTE | 2019-08-03 11:04 | Progress Note ---
DATE: SUBJECTIVE: The patient is seen and evaluated. Available labs and notes reviewed. Discussed with the nurse and discussed with Dr. Delgadillo. Uneventful night. REVIEW OF SYSTEMS: Unable to obtain review of systems. The patient is just rolled back problem in the operating room. Seems to be comfortable in bed, opens eyes, responds and goes back to sleep. Clinically, no acute distress. MEDICATIONS: Medication list is reviewed. As far the Infectious Disease point of view, the patient is on vancomycin IV and cefepime. LABORATORY STUDIES: White count 9.86, hemoglobin 9.3, and platelet 231. Sodium 139, potassium 4.5, and creatinine 6.37. Serology: Coronavirus PCR not detected on 07/28. MICROBIOLOGY: Wound culture; Proteus vulgaris, sensitive to cefepime. Blood culture; negative. Recheck wound culture from today from operating room is pending. RADIOLOGY STUDIES: No new radiology studies available. Foot x-ray was done, however, result is not ready. PHYSICAL EXAMINATION: VITAL SIGNS: Temperature is 99.4, pulse is 62, respirations 16, and blood pressure 138/76. GENERAL: Comfortable in bed, no acute distress. CV: S1-S2. CHEST: Equal expansion. Clear to auscultation. No acute distress. ABDOMEN: Soft, nontender. No distention. HEENT: Moist. No pallor. No JVD. EXTREMITIES: Left foot dressed with surgical dressing. ASSESSMENT AND PLAN: 1. Left 2nd toe necrosis. 2. Cellulitis of the left foot. 3. Osteomyelitis. 4. Diabetes. 5. Renal failure, on dialysis. 6. Anemia of chronic disease. 7. Peripheral vascular disease. 8. Hypertension. The patient is status post TMA and Achilles tendon lengthening and closure of the wound. We will continue with antibiotic at this point. Follow up with the cultures from operating room. Continue with wound care. Elevate the left lower extremity at times. Continue to monitor the patient clinically. Follow with the labs. Discussed with Dr. Delgadillo in details. Please refer to chart for more information. Dictated by Ry Betancur PA-C (Al) Darian Delgadillo MD /MODL /[id number]
--- NOTE | 2019-08-03 13:55 | Operative Report ---
DATE OF PROCEDURE: 08/03/2019 SURGEON: Warren Da Silva DPM PREOPERATIVE DIAGNOSES: 1. Grade 4 ulcer, left foot. 2. Equinus deformity, left foot. 3. Gangrene, left foot. 4. Osteomyelitis, left foot. POSTOPERATIVE DIAGNOSES: Confirmed. OPERATIVE PROCEDURES: 1. Achilles tendon lengthening, left foot. 2. Amputation of the 1st digit, left foot. 3. Amputation of the 2nd digit, left foot. 4. Amputation of the 3rd digit, left foot. 5. Amputation of the 4th digit, left foot. 6. Amputation of the 5th digit, left foot. 7. Partial resection 1st metatarsal, left foot. 8. Deep I and D of abscess, left foot. 9. Rotational flap closure, left foot. ANESTHESIA: General. HEMOSTASIS: None. PROCEDURE IN DETAIL: The patient was taken into the operating room and placed on the operating table in supine position. Following induction of general anesthesia by the anesthesiologist, the left foot was then prepped and draped in the usual aseptic manner and following procedures were then performed: Procedure #1: Achilles tendon lengthening, left foot. Attention was directed to the dorsal aspect of the left lower extremity, where 3 stab incisions were performed, 2 cm proximal to the insertion Achilles tendon and 2 cm apart midline through the Achilles tendon. Most distal and most proximal stab incisions were entered midline and exited medially. The middle stab incision was entered midline through the tendon and exited laterally. The foot was then dorsiflexed past 90 degrees. The Achilles tendon was felt to slide and lengthen. Procedure #2: Deep I and D, left foot. Attention was then directed to the dorsal aspect of the left lower extremity, where a curvilinear incision was performed along the 2nd and 3rd metatarsophalangeal joints. A deep abscess was encountered down to bone. The abscess was I and D via sharp and blunt dissection. Deep cultures were taken for aerobic and anaerobic growth procedures. Procedures #3, 4, 5, 6, and 7: Amputations of the 1st, 2nd, 3rd, 4th and 5th digit, left foot. Attention was then directed to the above-mentioned toes, where a racquet-shaped incisions were performed surrounding the metatarsophalangeal joints and the 1st, 2nd, 3rd, 4th toes were then disarticulated and sent for pathological analysis. Further, I and D had to be performed. Once the amputations of all toes were encountered via sharp and blunt dissection until some viable bleeding tissue was achieved. Procedure #8: Partial resection of 1st metatarsal and removal of sesamoid apparatus of the 1st metatarsal plantarly. Attention was then directed overlying the 1st metatarsophalangeal joint, where a curvilinear incision was performed medially exposing the dorsal medial exostosis and the sesamoid. Via the use of an oscillating saw and rotating bur, the partial resection of 1st metatarsal was achieved. The sesamoid apparatus was also removed to allow for proper closure with minimal skin tension. Procedure #9: rotational flap closure. A plantar flap was then created. Incision was then deepened medially, plantarly, and dorsally laterally. Underscoring of all soft tissue down to bone was then done via sharp and blunt dissection to allow for proper sliding. A forefoot-type of slide was performed along the 2nd metatarsal phalangeal joint to allow for proper closure of voided tissue. All areas were then copiously flushed with sterile antibiotic solution and suction. The flap was then dorsally displaced and utilizing 3-0 Vicryl and 3-0 nylon. The flap was reapproximated with minimal skin tension and proper closure of the foot was achieved after properly and copiously flushing the areas with antibiotic solution. An approximately 10 mL of 0.5% plain Marcaine plus 15 mL of 1% Xylocaine plain were then used to achieve local anesthesia of above-mentioned surgical area. Sterile dressing was applied. The patient was then transferred from the OR to recovery room with vital signs stable and neurovascular status intact. No intraoperative complications were encountered. Blood loss from the surgery was less than 20 mL. The patient will remain in the hospital, getting IV antibiotics. If not responsive, a more proximal amputation will be needed. KARY Bennett/QUIQUE /[id number]
--- NOTE | 2019-08-03 19:20 | NUR ---
BEDSIDE SHIFT REPORT RECEIVED FROM DAY RN. PT SLEEPY BUT ALERT AND ORIENTED X3. AV FISTULA RT UPPER ARM. LEFT SL 2O G TO LEFT FORARM. rESPIRATIONS ARE EEASY AND UNLABORED. tELE ON. HX RT AKA AMPUTATION. LEFT AMPUTATION OF METATARSALS. LEFT FOOT DRESSING HAS SMALL AMOUNT OF BLOODY DRAINAGE.PT SLEEPING IN SEMIFOWLERS POSITION. PT RESPONDS WHN CALL HIS NAME.CALL LIGHT WITHIN REACH. BED IN LOW POSITION.
[2019-08-03] MEDS ORDERED: SEVOFLURANE INHAL SOLN 250 ML PEN BTL ONE (19:41)
[2019-08-03] MEDS ORDERED: ETOMIDATE 2 MG/ML 10 ML INJ IV ONE (19:41)
[2019-08-03] MEDS ORDERED: ONDANSETRON HCL INJ 2MG/ML 2ML 2 MG/ML VIAL ONE (19:41)
[2019-08-03] MEDS ORDERED: LIDOCAINE HCL 2% LOCAL INJ 5 ML SDV VIAL INJ ONE (19:41)
[2019-08-03] MEDS: INSULIN GLARGINE 100 UNITS/ML VIAL SQ SCH (21:00)
[2019-08-03] MEDS: ATORVASTATIN 40 MG TAB PO SCH (21:56)
[2019-08-04] VITALS (7 sets, daily range): BP systolic 126–160; BP diastolic 63–75
[2019-08-04] MEDS: MORPHINE SULFATE 2 MG/ML SYR 1ML IV PRN ×2 (01:36→16:20)
[2019-08-04] MEDS: FAMOTIDINE 20 MG/2 ML VIAL IV SCH (05:02)
[2019-08-04 05:17] LABS: BASOPHILS % 0.4 % (0.0-1.0); EOSINOPHILS # (AUTO) 0.2 (0.0-0.4); EOSINOPHILS % 1.7 % (0.0-6.0); HEMATOCRIT 29.2 % (38.2-49.6); HEMOGLOBIN 8.5 g/dL (14.0-18.0); LYMPHOCYTES # (AUTO) 1.1 (1.0-3.2); LYMPHOCYTES % 11.2 % (18.0-39.1); MEAN CORPUSCULAR HGB CONC 29.1 g/dL (31-35); MEAN CORPUSCULAR VOLUME 96.1 fL (81-99); MONOCYTES % 10.6 % (4.4-11.3); NEUTROPHILS # (AUTO) 7.4 (2.1-6.9); NEUTROPHILS % 75.6 % (38.7-80.0); PLATELET COUNT 214 x10e3/uL (140-360); RED BLOOD COUNT 3.04 x10e6/uL (4.3-5.7); RED CELL DISTRIBUTION WIDTH 15.9 % (11.7-14.4)
[2019-08-04] MEDS: HYDROCODONE/APAP 10MG-325MG TAB PO PRN (05:29)
[2019-08-04 05:44] LABS: ALANINE AMINOTRANSFERASE < 6 IU/L (0-55); ALBUMIN 2.1 g/dL (3.5-5.0); ALBUMIN/GLOBULIN RATIO 0.5 (0.8-2.0); ALKALINE PHOSPHATASE 81 IU/L (40-150); ANION GAP 16.2 mmol/L (8-16); BLOOD UREA NITROGEN 41 mg/dL (7-26); BUN/CREATININE RATIO 5 (6-25); CALCIUM 7.1 mg/dL (8.4-10.2); CARBON DIOXIDE 24 mmol/L (22-29); CHLORIDE 101 mmol/L (98-107); EST GLOMERULAR FILTRATION RATE 8 ML/MIN (60-); GLUCOSE 281 mg/dL (74-118); POTASSIUM 5.2 mmol/L (3.5-5.1); SODIUM 136 mmol/L (136-145)
[2019-08-04] MEDS: CINACALCET 30 MG TAB PO SCH ×3 (07:30→16:32)
[2019-08-04] MEDS: SEVELAMER CARBONATE 800 MG TAB PO SCH ×3 (08:00→16:33)
[2019-08-04] MEDS: INSULIN LISPRO 100 UNIT/1 ML 3ML VIAL SQ SCH ×4 (08:19→21:15)
[2019-08-04] MEDS: METOPROLOL TARTRATE 50 MG TAB PO SCH ×2 (09:00→16:33)
--- NOTE | 2019-08-04 11:55 | Progress Note ---
DATE: SUBJECTIVE: The patient is seen and evaluated. Available labs and notes reviewed. Discussed with Dr. Delgadillo in detail. REVIEW OF SYSTEMS: The patient is currently on dialysis and comfortably sleeping in bed. No reports per staff. PHYSICAL EXAMINATION: VITAL SIGNS: Temperature is 97.6, pulse 61, respirations 17, blood pressure 126/69. GENERAL: Comfortable in bed, in no acute distress. CV: S1, S2. CHEST: Equal expansion. Clear to auscultation. No acute distress. ABDOMEN: Soft. No distention. Nontender. HEENT: Moist. No pallor. No JVD. EXTREMITIES: Left foot wound with surgical dressing. MEDICATIONS: Medication list reviewed. As far as Infectious Disease point of view, the patient is on vancomycin IV and cefepime. LABORATORY STUDIES: White count of 9.79, hemoglobin 8.5, platelet 214. Sodium 136, potassium 5.2, creatinine 8.3. The patient is on dialysis. Serology: Coronavirus 07/28 not detected. MICROBIOLOGY: Wound culture, Proteus vulgaris. Blood culture negative on 07/28. Recheck wound culture from surgery is pending, however, was positive for gram-negative bacilli on Gram stain. No pathology available. RADIOLOGY STUDIES: No new radiology studies available. Had x-ray of the left foot post surgery which showed status post amputation at the metatarsophalangeal joint and at the distal lateral aspect of the first metatarsal. ASSESSMENT AND PLAN: 1. Left 2nd toe necrosis. 2. Osteomyelitis. 3. Cellulitis of the left foot. 4. Diabetes. 5. End-stage renal disease, on dialysis. 6. Peripheral vascular disease. 7. Hypertension. 8. Chronic anemia. 9. Debility-multifactorial. The patient is status post TMA with lengthening of the Achilles tendon and closure of the wound by Podiatry on 08/03/2019. We will follow up with the cultures from surgery. Continue with antibiotic at this point. Continue with wound care. Continue with dialysis as recommended by Renal. Continue PT/OT. Further management of this patient is based on daily findings on laboratory and physical examination. Discussed with Dr. Delgadillo in detail. Please refer to chart for more information. Darian Delgadillo MD ZS/MODL /[id number]
[2019-08-04] MEDS: PREGABALIN 75 MG CAP PO SCH (14:13)
[2019-08-04] MEDS: CEFEPIME 1GM/NS 0.9% 50 ML 50 ML IV SCH (14:14)
[2019-08-04] MEDS: EPOETIN ALFA-EPBX 10,000 UNIT/ML VIAL SC SCH (14:14)
[2019-08-04] MEDS: AMLODIPINE BESYLATE 10 MG TAB PO SCH (14:14)
[2019-08-04] MEDS: TRAMADOL HCL 50 MG TAB PO PRN (15:18)
--- NOTE | 2019-08-04 15:22 | NUR ---
Received order for [facility] eval. Placed call to pt's daughter Tato Bautista [phone]. Daughter is agreeable to LTAC. Gave choice for [facility]. Choice letter placed in front of chart. Will send referral.
--- NOTE | 2019-08-04 16:03 | Diagnostic Imaging Report ---
CT BRAIN WO HISTORY: Altered mental status COMPARISON: None. Technique: Noncontrast axial scans were obtained from skull base to the vertex. Coronal and sagittal reconstructions obtained from the axial data. One or more of the following dose reduction techniques were used: Automated exposure control, adjustment of the mA and/or kV according to patient size, and/or utilization of iterative reconstruction technique. DISCUSSION: Scalp/Skull: Diffuse vascular calcifications in the scalp. Otherwise, unremarkable. Brain sulci: Mildly prominent. Ventricles: Compensatory dilatation. Extra-axial spaces: Focal prominence of the right frontal parafalcine subarachnoid space measures up to 3.3 x 4.9 x 3 cm (sagittal by AP by transverse). This is likely due to an arachnoid cyst. There is mild local mass effect on the medial right frontal lobe. No masses or fluid collections. Carotid and vertebral artery calcifications are present. Parenchyma: Mild bilateral deep white matter hypodensity is likely chronic microvascular ischemic change. Otherwise, no masses, hemorrhage, or large vascular territory acute infarct. Dural sinuses: No abnormal densities. Sellar/Suprasellar region: Intact. Skull base: Intact. Incidental findings: Bilateral ocular lens replacement. IMPRESSION: 1. No acute intracranial abnormalities. 2. Mild supratentorial chronic microvascular ischemic change. Mild generalized cerebral volume loss. 3. Approximately 4.9 cm medial right frontal arachnoid cyst. Signed by: Dr. Neil Juan M.D. on 08/04/2019 3:59 PM
--- NOTE | 2019-08-04 16:12 | NUR ---
Referral faxed to [facility] at [phone]. [facility]
[2019-08-04] MEDS: VANCOMYCIN 1GM/NS 250 ML 250 ML IV SCH (16:33)
--- NOTE | 2019-08-04 18:04 | NUR ---
Patient refused to be turned and repositioned to relieve pressure from bottom, also refused skin assessment. Patient was educated on the importance of needing to assess the skin for breakdown due to limited mobility and being in bed.
--- NOTE | 2019-08-04 18:46 | Consultation ---
DATE OF CONSULTATION: 08/04/2019 SUBJECTIVE: The patient is at bedside, doing better. Denies any history of fever, chills, nausea, vomiting, getting dialyzed. OBJECTIVE: VITALS: Afebrile, pulse rate 62, respirations 16, blood pressure 131/75, and O2 saturation 100%. LABORATORY DATA: Labs show white blood cell count of 9.7, hemoglobin 8.5 with a platelet count of 214. Dressing dry and intact. Skin temperature warm to touch. ASSESSMENT: Status post two days left foot surgery, multiple procedures. PLAN: We will need IV antibiotics. Continue offloading. We will continue to follow. KARY Bennett/QUIQUE /[id number]
[2019-08-04] MEDS: ATORVASTATIN 40 MG TAB PO SCH (20:41)
[2019-08-04] MEDS: INSULIN GLARGINE 100 UNITS/ML VIAL SQ SCH (21:15)
[2019-08-05] VITALS: BP 133/56
[2019-08-05] MEDS: TRAMADOL HCL 50 MG TAB PO PRN (01:20)
[2019-08-05 04:00] VITALS: BP 117/72
[2019-08-05] MEDS: FAMOTIDINE 20 MG/2 ML VIAL IV SCH (05:38)
[2019-08-05 05:50] LABS: BASOPHILS % 0.4 % (0.0-1.0); EOSINOPHILS # (AUTO) 0.3 (0.0-0.4); EOSINOPHILS % 3.2 % (0.0-6.0); HEMATOCRIT 31.4 % (38.2-49.6); HEMOGLOBIN 9.2 g/dL (14.0-18.0); LYMPHOCYTES # (AUTO) 1.2 (1.0-3.2); LYMPHOCYTES % 11.4 % (18.0-39.1); MEAN CORPUSCULAR HEMOGLOBIN 27.5 pg (28-32); MEAN CORPUSCULAR HGB CONC 29.3 g/dL (31-35); MONOCYTES # (AUTO) 1.2 (0.2-0.8); MONOCYTES % 11.3 % (4.4-11.3); NEUTROPHILS # (AUTO) 7.5 (2.1-6.9); PLATELET COUNT 199 x10e3/uL (140-360); RED BLOOD COUNT 3.34 x10e6/uL (4.3-5.7); RED CELL DISTRIBUTION WIDTH 15.6 % (11.7-14.4)
[2019-08-05 06:11] LABS: ANION GAP 15.4 mmol/L (8-16); CALCIUM 7.4 mg/dL (8.4-10.2); CREATININE, SERUM 6.12 mg/dL (0.72-1.25); POTASSIUM 4.4 mmol/L (3.5-5.1)
[2019-08-05] MEDS: INSULIN LISPRO 100 UNIT/1 ML 3ML VIAL SQ SCH ×2 (07:30→12:26)
[2019-08-05 07:46] VITALS: BP 117/72
[2019-08-05 08:02] VITALS: BP 158/86
--- NOTE | 2019-08-05 10:03 | NUR ---
[facility] FACILITY DISCHARGE INFORMATION PATIENT HAS BEEN ACCEPTED TO: NAME: MIGUEL, ADDRESS:[id number] [facility] ACCEPTING BRAND ACTIVATION MANAGER:ANGELINE MESA ACCEPTING MD:ERLIN BASS ROOM:909 NURSE CALL REPORT TO: [phone] THE FOLLOWING DOCUMENTS MUST ACCOMPANY PATIENT FOR TRANSFER: COPIED CHART:MOT ON PACKET
[2019-08-05] MEDS: AMLODIPINE BESYLATE 10 MG TAB PO SCH (10:15)
[2019-08-05] MEDS: PREGABALIN 75 MG CAP PO SCH (10:15)
[2019-08-05] MEDS: SEVELAMER CARBONATE 800 MG TAB PO SCH ×2 (10:15→12:26)
[2019-08-05] MEDS: METOPROLOL TARTRATE 50 MG TAB PO SCH (10:15)
[2019-08-05] MEDS: CINACALCET 30 MG TAB PO SCH ×2 (10:15→12:26)
[2019-08-05] MEDS: CEFEPIME 1GM/NS 0.9% 50 ML 50 ML IV SCH (10:15)
[2019-08-05] MEDS ORDERED: Hydrocodone/Apap 10MG-325MG PO (10:28)
[2019-08-05] MEDS ORDERED: RENVELA800 MG PO (10:28)
[2019-08-05] MEDS ORDERED: DEXTROSE 50%-WA50 M1 IV (10:28)
[2019-08-05] MEDS ORDERED: RETACRIT10000 UNIT SC (10:28)
[2019-08-05] MEDS ORDERED: FAMOTIDINE20 MG/2 ML IV (10:28)
[2019-08-05] MEDS ORDERED: ACETAMINOPHEN325 M1 PO (10:28)
[2019-08-05] MEDS ORDERED: CEFEPIME 11 GM/50 ML IV (10:28)
[2019-08-05] MEDS ORDERED: Morphine Sulfate 2MG/Ml IV (10:28)
[2019-08-05] MEDS ORDERED: AMBIEN5 MG PO (10:28)
[2019-08-05] MEDS ORDERED: Insulin Glargine SQ (10:28)
[2019-08-05] MEDS ORDERED: Atorvastatin PO (10:28)
[2019-08-05] MEDS ORDERED: HYDRALAZIN20 MG/1 ML IV (10:28)
[2019-08-05] MEDS ORDERED: DULCOLAX5 MG PO (10:28)
[2019-08-05] MEDS ORDERED: VANCOMYCIN1 GM/2001 IV (10:28)
[2019-08-05] MEDS ORDERED: Insulin Lispro SQ (10:28)
[2019-08-05] MEDS ORDERED: LACTULOSE20 GM/30 M PO (10:28)
[2019-08-05] MEDS: HYDROCODONE/APAP 10MG-325MG TAB PO PRN (10:50)
--- NOTE | 2019-08-05 12:04 | Progress Note ---
DATE: 08/05/2019 SUBJECTIVE: The patient is seen at bedside, doing better. Decreased discomfort to left lower extremity. Denies any history of fever, chills, nausea, or vomiting. OBJECTIVE: VITAL SIGNS: Afebrile. Vital signs stable. EXTREMITIES: Dressing dry and intact. Decreased swelling to the left lower extremity. LABORATORY DATA: Noted. White blood cell count 10.2, hemoglobin 9.2 with a platelet count of 199. ASSESSMENT: Status post 2 days left foot surgery. PLAN: Continue IV antibiotics. Continue offloading. We will continue to follow. KARY Bennett/QUIQUE /[id number]
[2019-08-05 12:11] VITALS: BP 160/83
--- NOTE | 2019-08-05 12:14 | Progress Note ---
DATE: SUBJECTIVE: The patient is seen and evaluated. Available labs and notes reviewed. Discussed with the attending teams, Mr. Almanzar, the nurse practitioner. Discussed with the case management. Discussed with Dr. Delgadillo. Please refer to chart for more information. REVIEW OF SYSTEMS: No nausea, vomiting, fever, chills, chest pain, shortness of breath, headache, rash, or dysuria. Pain is controlled. PHYSICAL EXAMINATION: VITAL SIGNS: Temperature 98, pulse is 71, respirations 16, and blood pressure 158/86. GENERAL: Alert and oriented, no acute distress. CV: S1 and S2. CHEST: Equal expansion. Clear to auscultation. No acute distress. ABDOMEN: Soft and nontender. No distention. HEENT: Moist. No pallor. No JVD. EXTREMITIES: Left foot with surgical dressing, moves extremities. MEDICATIONS: Medication list reviewed. From Infectious Disease point of view, the patient is on vancomycin IV and cefepime. LABORATORY STUDIES: White count 10.24, hemoglobin 9.2, and platelet 199. Sodium 137, potassium 4.4, and creatinine 6.12. Serology; coronavirus PCR not detected on 07/28. MICROBIOLOGY: Wound cultures, gram-negative bacilli with identification and sensitivity pending. Previous wound culture from 07/29 showed Proteus. IMAGING: No new radiology studies available. CT of the brain showed no acute intracranial abnormalities. ASSESSMENT AND PLAN: 1. Left 2nd toe necrosis. 2. Osteomyelitis. 3. Cellulitis of the left foot. 4. End-stage renal disease, on dialysis. 5. Peripheral vascular disease. 6. Diabetes. 7. Hypertension. 8. Debility-multifactorial. 9. The patient is status post TMA and lengthening of Achilles tendon and closure of the wound on 08/02. Foot still dressed from surgical time per my discussion with the patient. Continue with wound care, continue with PT/OT, continue with antibiotic at this point, cefepime is 1 g q.24 hours and vancomycin is with each hemodialysis. Discharge plan noted to [facility] under the care of Dr. Hale. The patient has a room number at 909. Discussed with attending team. We will follow the patient clinically and follow with the labs. Dictated by Ry Betancur PA-C (Al) MD JUSTINA Rouse/QUIQUE /[id number]
--- NOTE | 2019-08-05 13:43 | NUR ---
Report called to Durga at [facility]. Patient is going to room 909.
--- NOTE | 2019-08-05 15:45 | NUR ---
Patient was transferred to [facility] room 909 via EMS
--- NOTE | 2019-08-06 04:33 | Discharge Summary ---
CONSULTING PHYSICIANS: Included Dr. Darian Delgadillo with Infectious Disease, Dr. Gemma Dominguez with Nephrology, and Dr. Warren Da Silva with Podiatry. CHIEF COMPLAINT: Chronic left 2nd toe wound. HISTORY OF PRESENT ILLNESS: Mr. Bautista is a 63-year-old male, who admitted with complaints of poor wound healing of the left 2nd toe wound. He was already following Dr. Da Silva in his office and he was admitted here for possible elective amputation. PAST MEDICAL HISTORY: End-stage renal disease, type 2 diabetes mellitus, hypertension, coronary artery disease, hyperlipidemia, hyperparathyroidism, and neuropathy. PAST SURGICAL HISTORY: Left foot laminectomy, right BKA, left 1st toe amputation, right AV fistula, neck surgery, back surgery, and thyroid surgery. FAMILY HISTORY: Noncontributory. SOCIAL HISTORY: Noncontributory. ALLERGIES: HEPARIN CONTRAST. ADMITTING DIAGNOSES: 1. Left foot osteomyelitis. 2. End-stage renal disease. 3. Hypertension with end-stage renal disease. 4. Type 2 diabetes mellitus with end-stage renal disease. 5. Hyperlipidemia. 6. Coronary artery disease. 7. Neuropathy. 8. Hyperparathyroidism. DISCHARGE DIAGNOSES: 1. Left foot 2nd toe osteomyelitis, now status post transmetatarsal amputation, rotational flap closure, Achilles tendon lengthening on 08/03/[address] Da Silva. 2. End-stage renal disease. 3. Hypertension with end-stage renal disease. 4. Type 2 diabetes mellitus with end-stage renal disease. 5. Hyperlipidemia. 6. Coronary artery disease. 7. Hyperparathyroidism. 8. Neuropathy. LABORATORY DATA: On admission WBC 10.99, hemoglobin 9.0, hematocrit 30.3, platelets 227. Sodium 137, potassium 4.5, chloride 97, CO2 of 28, anion gap 16.5, BUN 39, creatinine 6.85, estimated GFR 10, glucose 363, calcium 9.9, total bilirubin 0.5, AST 15, ALT 7, alkaline phosphatase 86. Creatine kinase 59, CK-MB 1.4, troponin I 0.004, total protein 8.3, albumin 2.7. Coronavirus by PCR was not detected on July 28. Hepatitis B surface antibody quantitative was 774.2. Hepatitis B core total antibody and IgM antibody were both negative. Blood cultures x2 collected on 07/28 were negative. No growth after 5 days. Thus, the final report on 07/29, left foot culture and sensitivity was obtained and showed Proteus vulgaris. The intraoperative Gram stain and culture and sensitivity from the wound showed gram-negative bacillus. This is a preliminary report. Foot x-ray on 07/28, showed findings in the 2nd toe middle phalanx and possibly distal flanks, highly suspicious for osteomyelitis. The left foot x-ray on 08/02, impression reads status post amputation at the metatarsophalangeal joints and of the distal lateral aspect of the 1st metatarsal. On 08/02, Dr. Warren Da Silva completed his amputations, specifically Achilles tendon lengthening of the left foot, amputation of the 1st, 2nd, 3rd, 4th, and 5th digits of the left foot. Partial resection of the 1st metatarsal on the left foot and deep I and D of abscess with rotational flap closure of the left foot. Ulcer had been debrided several times in his office down to the bone. Prior to his stay here, the foul smell seemed to be subsiding, but the discoloration of the forefoot aspect of the left foot had gotten worse prior to surgery. During his stay, local wound care included diluted wet-to-dry Betadine. He received IV antibiotics, vancomycin, cefepime, and these will be continued at [facility], which he will be transferring to today. Activity as tolerated. Continue renal ADA diet. Hemodialysis was continued during his stay. Hopefully, he will be responsive to this amputation. If not, he may need a ahomd-fwe-[id number] amputation at a later date. This was already explained to him by Dr. Da Silva. His last hemodialysis was 08/03, in which 3.5 L were removed. His hemoglobin A1c on 06/09 was 8.3%. Yesterday, 08/03, it was noticed that he was very confused. He did not recognize his daughter and he could not carry on a conversation. This could be due to fluid shifts with dialysis or electrolyte imbalances, but his fingerstick blood glucose was within normal limits. A stat CT of the brain was obtained, which showed no acute intracranial abnormalities. There was mild supratentorial chronic microvascular ischemic change, mild generalized cerebral volume loss, approximately 4.9 cm medial right frontal arachnoid cyst. Today, his telemetry shows normal sinus rhythm with a heart rate of 72. Vital signs, temperature 98.0 heart rate 71, blood pressure 158/86, respirations 16, oxygen saturation 100% on room air. His current medications will be continued at [facility]. No change in his physical examination. Has a right BKA. Left dressing with Kerlix, serosanguineous drainage. Currently, denies any complaints. Physical therapy has seen and evaluated the patient this morning. Laboratory data from today includes WBC 10.24, hemoglobin 9.2, hematocrit 31.4, platelets 199. Sodium 137, potassium 4.4, chloride 100, CO2 of 26. BUN 24, creatinine 6.12, estimated GFR 11, consistent with end-stage renal disease. Glucose 112, calcium 7.4. Dr. Delgadillo will continue to follow the patient at [facility]. The accepting/attending physician is Dr. Bennett. He will be going to room #909. The patient to follow up with Podiatry as well. Dr. Delgadillo will be following at [facility] too. Dictated by Yohan Omalley NP Alton Hussein MD HWP/MODL /[id number]
== END 2019-08-05 15:45 | DRG 617 ==
LOC: ER 14:18 → ERHOLD 15:00 → MED/SURG2 21:59
PROVIDERS: ADMIT Internal Medicine; ATTEND Internal Medicine
PROC: 0Y6N0Z4 Detachment at Left Foot, Complete 1st Ray, Open Approach (ICD-10-PCS; principal; 2019-07-29)
PROC: 0Y6N0Z5 Detachment at Left Foot, Complete 2nd Ray, Open Approach (ICD-10-PCS; 2019-07-29)
PROC: 0Y6N0Z6 Detachment at Left Foot, Complete 3rd Ray, Open Approach (ICD-10-PCS; 2019-07-29)
PROC: 0Y6N0Z7 Detachment at Left Foot, Complete 4th Ray, Open Approach (ICD-10-PCS; 2019-07-29)
PROC: 0Y6N0Z8 Detachment at Left Foot, Complete 5th Ray, Open Approach (ICD-10-PCS; 2019-07-29)
PROC: 0JXR0ZZ Transfer Left Foot Subcutaneous Tissue and Fascia, Open Approach (ICD-10-PCS; 2019-07-29)
PROC: 0L8P0ZZ Division of Left Lower Leg Tendon, Open Approach (ICD-10-PCS; 2019-07-29)
PROC: 5A1D70Z Performance of Urinary Filtration, Intermittent, Less than 6 Hours Per Day (ICD-10-PCS; 2019-07-30)
DX: E11.69 Type 2 diabetes mellitus with other specified complication (principal); I12.0 Hypertensive chronic kidney disease with stage 5 chronic kidney disease or end stage renal disease; M86.8X7 Other osteomyelitis, ankle and foot; E11.52 Type 2 diabetes mellitus with diabetic peripheral angiopathy with gangrene; I96 Gangrene, not elsewhere classified; E11.621 Type 2 diabetes mellitus with foot ulcer; N18.6 End stage renal disease; Z79.4 Long term (current) use of insulin; E11.40 Type 2 diabetes mellitus with diabetic neuropathy, unspecified; E78.5 Hyperlipidemia, unspecified; N25.81 Secondary hyperparathyroidism of renal origin; D63.1 Anemia in chronic kidney disease; M21.542 Acquired clubfoot, left foot; B96.4 Proteus (mirabilis) (morganii) as the cause of diseases classified elsewhere
CPT/HCPCS: 36415; 70450; 80048; 80053; 82550; 82553; 82948; 83605; 83735; 84100; 84484; 85025; 85610; 85730; 86704; 86705; 86706; 87040; 87071; 87075; 87186; 87205; 87340; 87635; 88304; 88305; 88307; 88311; 93005; 96372; 97139; 99284; J0360; J0692; J0720; J1100; J1815; J2001; J2270; J2405; J3370; J7030; J7040; J7050; J7799

== ENCOUNTER 2019-09-26 16:05 | Inpatient (IN) | payer MEDICARE, OTHER ==
[~2019-09-26] VITALS: Ht 365.8 cm; Wt 81.6 kg
[~2019-09-26 16:05] MED LIST changes: +ACETAMINOPHEN325 M1 PO; +CEFALEXIN PO; +CEFEPIME 11 GM/50 ML IV; +CLONIDINE HCL0.2 MG PO; +DEXTROSE 50%-WA50 M1 IV; +DOXYCYCLINE HY100 MG PO; +DULCOLAX5 MG PO; +FAMOTIDINE20 MG/2 ML IV; +HYDRALAZIN20 MG/1 ML IV; +ISOSORBIDE MONO30 MG PO; +LACTULOSE20 GM/30 M PO; +Morphine Sulfate 2MG/Ml IV; +PENTOXIFYLLINE; +RENVELA800 MG PO; +RETACRIT10000 UNIT SC; +ULTRAM 50MG50 MG PO; +VANCOMYCIN1 GM/2001 IV
[2019-09-26] MEDS ORDERED: ASPIRIN 81 MG CHEW TAB PO ONE (16:30)
--- NOTE | 2019-09-26 16:33 | Emergency Department Note ---
History of Present Illnes History of Present Illness History of Present Illness This is a 63 year old male arrives to the ED with chest pain that began just prior to arrival, patient has extensive medical history including ESRD on hemodialysis, hypertension, diabetes, right AKA, hypercholesterolemia. Onset (how long ago): minute(s) Radiation: Reports non-radiation Severity: mild Duration (how long): hour(s) Timing of current episode: constant Chronicity: new Relieving factors: none (HORACE MUSTAFA DO) Past Medical/Family History Physician Review I have reviewed the patient's past medical and family history. Any updates have been documented here. (HORACE MUSTAFA, ) Past Medical History Past Medical History: Hypertension, Diabetes, CAD, ESRD, Hemodyalisis, Chronic Kidney Disease Other Medical History: possible osteo infection left foot Past Surgical History: Back Surgery, Cataract Removal Other Surgery: lt heart cath stent placed lad, c4 l fusion- herniated disc, both eyes cataracts, bka rt leg 1 month ago- no prosthesis yet (HORACE MUSTAFA DO) Social History Smoking Cessation: Former smoker Counseling Performed: No Alcohol Use: Social Any Illegal Drug Use: No TB Exposure/Symptoms: No (HORACE MUSTAFA, ) Family History Family history of heart diseas: No (HORACE MUSTAFA, ) Other Last Tetanus: UTD (HORACE MUSTAFA, ) Review of Systems Review of Systems Constitutional: Reports no symptoms EENTM: Reports no symptoms Cardiovascular: Reports no symptoms Respiratory: Reports as per HPI Gastrointestinal: Reports no symptoms Genitourinary: Reports no symptoms Musculoskeletal: Reports no symptoms Integumentary: Reports no symptoms Neurological: Reports no symptoms Psychological: Reports no symptoms Endocrine: Reports no symptoms Hematological/Lymphatic: Reports no symptoms Review of other systems: All other systems negative (HORACE MUSTAFA, ) Physical Exam Related Data Allergies: Coded Allergies: Iodinated Contrast Media (Verified Allergy, Intermediate, RASH, 08/02/19) heparin (Verified Allergy, Unknown, 12/29/18) Uncoded Allergies: CONTRAST DYE (Allergy, Intermediate, RASH, 07/30/19) Vital signs reviewed: Yes (HORACE MUSTAFA, ) Physical Exam CONSTITUTIONAL Constitutional: Present well-developed, Present well-nourished HENT HENT: Present normocephalic, Present atraumatic, Present oropharynx clear/moist, Present nose normal HENT L/R: Present left ext ear normal, Present right ext ear normal EYES Eyes: Reports PERRL, Reports conjunctivae normal NECK Neck: Present ROM normal PULMONARY Pulmonary: Present effort normal, Present breath sounds normal CARDIOVASCULAR Cardiovascular: Present regular rhythm, Present heart sounds normal, Present capillary refill normal, Present normal rate GASTROINTESTINAL Abdominal: Present soft, Present nontender, Present bowel sounds normal GENITOURINARY Genitourinary: Present exam deferred SKIN Skin: Present warm, Present dry MUSCULOSKELETAL Musculoskeletal: Present other (rt AKA ) NEUROLOGICAL Neurological: Present alert, Present oriented x 3, Present no gross motor or sensory deficits PSYCHOLOGICAL Psychological: Present mood/affect normal, Present judgement normal (HORACE MUSTAFA DO) Results Laboratory Lab results reviewed: Yes (HORACE MUSTAFA DO) Laboratory Laboratory Tests Test 09/26/19 16:36 White Blood Count 4.19 x10e3/uL (4.8-10.8) Red Blood Count 4.08 x10e6/uL (4.3-5.7) Hemoglobin 11.3 g/dL (14.0-18.0) Hematocrit 38.0 % (38.2-49.6) Mean Corpuscular Volume 93.1 fL (81-99) Mean Corpuscular Hemoglobin 27.7 pg (28-32) Mean Corpuscular Hemoglobin Concent 29.7 g/dL (31-35) Red Cell Distribution Width 16.8 % (11.7-14.4) Platelet Count 143 x10e3/uL (140-360) Neutrophils (%) (Auto) 65.3 % (38.7-80.0) Lymphocytes (%) (Auto) 17.7 % (18.0-39.1) Monocytes (%) (Auto) 7.9 % (4.4-11.3) Eosinophils (%) (Auto) 8.4 % (0.0-6.0) Basophils (%) (Auto) 0.5 % (0.0-1.0) Neutrophils # (Auto) 2.7 (2.1-6.9) Lymphocytes # (Auto) 0.7 (1.0-3.2) Monocytes # (Auto) 0.3 (0.2-0.8) Eosinophils # (Auto) 0.4 (0.0-0.4) Basophils # (Auto) 0.0 (0.0-0.1) Absolute Immature Granulocyte (auto 0.01 x10e3/uL (0-0.1) Sodium Level 141 mmol/L (136-145) Potassium Level 6.3 mmol/L (3.5-5.1) Chloride Level 100 mmol/L (98-107) Carbon Dioxide Level 30 mmol/L (22-29) Anion Gap 17.3 mmol/L (8-16) Blood Urea Nitrogen 45 mg/dL (7-26) Creatinine 9.21 mg/dL (0.72-1.25) Estimat Glomerular Filtration Rate 7 ML/MIN (60-) BUN/Creatinine Ratio 5 (6-25) Glucose Level 128 mg/dL (74-118) Calcium Level 9.4 mg/dL (8.4-10.2) Total Bilirubin 0.6 mg/dL (0.2-1.2) Aspartate Amino Transf (AST/SGOT) 21 IU/L (5-34) Alanine Aminotransferase (ALT/SGPT) 11 IU/L (0-55) Alkaline Phosphatase 96 IU/L (40-150) Creatine Kinase 69 IU/L (30-200) Creatine Kinase MB 3.30 ng/mL (0-5.0) Troponin I 0.012 ng/mL (0-0.300) Total Protein 8.5 g/dL (6.5-8.1) Albumin 3.6 g/dL (3.5-5.0) Globulin 4.9 g/dL (2.3-3.5) Albumin/Globulin Ratio 0.7 (0.8-2.0) Lab results reviewed: Yes Laboratory comments potassium 6.3 (DUONG MONCADA MD) Imaging Imaging results reviewed: Yes (HORACE MUSTAFA, ) Imaging results reviewed: Yes Impressions Procedure: [id number] DX/CHEST SINGLE (PORTABLE) Exam Date: 09/26/19 Exam Time: 1640 REPORT STATUS: Signed EXAMINATION: CHEST SINGLE (PORTABLE) INDICATION: cp COMPARISON: None FINDINGS: AP view TUBES and LINES: None. LUNGS/PLEURA: Lungs are well inflated. There is no evidence of pulmonary edema.. Left lower opacity is seen could be atelectasis or pneumonia in appropriate clinical setting. There is no pleural effusion or pneumothorax. HEART AND MEDIASTINUM: Cardiac size is mildly enlarged. BONES AND SOFT TISSUES: Median sternotomy wires are seen and intact. There is a spinal hardware present. No acute osseous lesion. Soft tissues are unremarkable. UPPER ABDOMEN: No free air under the diaphragm. IMPRESSION: Left lower opacity could be atelectasis or pneumonia in appropriate clinical setting Signed by: Ry Mora MD on 09/26/2019 5:20 PM Dictated By: RY MORA MD 19 Transcribed By: FELECIA on 09/26/191719 (DUONG MONCADA MD) Procedures 12 Lead ECG Interpretation ECG Interpretation : ECG: ECG 1 Rhythm: sinus rhythm QRS axis: normal Conduction: left bundle branch block ST segments normal: Yes T waves normal: Yes Clinical Impression: abnormal ECG (HORACE MUSTAFA DO) Assessment & Plan Medical Decision Making MDM pt with potassium of 6.3 regular insulin 10 units iv ordered bicarb 1 amp iv ordered 1 amp calcium gluconate iv ordered 1 amp d50 iv ordered kayexalate 30 grams po ordered i spoke with dr kamini hernandez for dr soriano(renal) admit observation status per dr heart (DUONG MONCADA MD) Assessment & Plan Final Impression: (1) Chest pain (2) Unstable angina (HORACE MUSTAFA DO) Final Impression: (1) Chest pain (2) Unstable angina (3) ESRD (end stage renal disease) on dialysis (4) ESRD needing dialysis (5) Hyperkalemia (DUONG MONCADA MD) Depart Disposition: ADMITTED Home Meds Active Scripts [Hydrocodone/Apap 10MG-325MG] 1 EA TAB No Conflict Check, 1 EA PO Q6H PRN for MODERATE PAIN (4-6) for 30 Days Prov:BEBE RAMIREZ NP 08/05/19 [Morphine Sulfate 2MG/Ml] 2 MG/ML INJ No Conflict Check, 2 MG IV Q6H PRN for SEVERE PAIN (7-10) for 30 Days Prov:BEBE RAMIREZ NP 08/05/19 Zolpidem Tartrate (AMBIEN) 5 Mg Tablet, 5 MG PO HS PRN for INSOMNIA for 30 Days Prov:BEBE RAMIREZ NP 08/05/19 Vancomycin/0.9 % Sod Chloride (Vancomycin 1 G/200Ml-0.9% NaCl) 1 Gm/200 Ml Froz.piggy, 1 G IV MoWeFr@1800 for 14 Days, BAG 0 Refills Prov:BEBE RAMIREZ AMY 08/05/19 Sevelamer Hcl (RENVELA) 800 Mg Tab, 1600 MG PO TIDWM for 30 Days, TAB Prov:BEBE RAMIREZ AMY 08/05/19 Lactulose (LACTULOSE) 20 Gm/30 Ml Solution, 20 GM PO BID PRN for CONSTIPATION for 30 Days Prov:BEBE RAMIREZ AMY 08/05/19 [Insulin Lispro] 100 UNIT/1 ML VIAL No Conflict Check, 0 UNIT SQ ACHS for 30 Days Prov:BEBE RAMIREZ AMY 08/05/19 [Insulin Glargine] 100 UNITS/ML VIAL No Conflict Check, 15 UNITS SQ HS for 30 Days Prov:BEBE RAMIREZ AMY 08/05/19 Hydralazine Hcl (HYDRALAZINE HCL) 20 Mg/1 Ml Vial, 10 MG IV Q4H PRN for HIGH BLOOD PRESSURE for 30 Days, VIAL Prov:BEBE RAMIREZ AMY 08/05/19 Famotidine/Pf (FAMOTIDINE 20 MG/2 ML VIAL) 20 Mg/2 Ml Vial, 20 MG IV 0600 for 30 Days, VIAL Prov:BEBE RAMIREZ AMY 08/05/19 Epoetin Huang-Epbx (Retacrit) 10,000 Unit/1 Ml Vial, 5000 UNIT SC MoWeFr for 30 Days, VIAL Prov:BEBE RAMIREZ AMY 08/05/19 Dextrose (DEXTROSE 50%-WATER SYRINGE) 50 Ml Inj, 50 ML IV PRN PRN for BLOOD SUGAR for 30 Days Prov:BEBE RAMIREZ AMY 08/05/19 Cefepime Hcl/Dextrose, Iso-Osm (CEFEPIME 1 GM INJECTION) 1 Gm/50 Ml Froz.piggy, 1 G IV DAILY for 14 Days, BAG Prov:BEBE RAMIREZ AMY 08/05/19 Bisacodyl (DULCOLAX) 5 Mg Tablet.dr, 10 MG PO TID PRN for Constipation for 30 Days Prov:BEBE RAMIREZ AMY 08/05/19 [Atorvastatin] 40 MG TAB No Conflict Check, 40 MG PO HS for 30 Days Prov:BEBE RAMIREZ VOCATIONAL EXAMINER 08/05/19 Acetaminophen (ACETAMINOPHEN) 325 Mg Tablet, 650 MG PO Q6H PRN for Mild Pain (1- 3) or Fever>100.8 for 30 Days Prov:BEBE RAMIREZ VOCATIONAL EXAMINER 08/05/19 Pregabalin (LYRICA) 75 Mg Cap, 75 MG PO DAILY, #30 CAP Prov:CHLOE ESCUDERO VOCATIONAL EXAMINER 06/22/19 [Hydrocodone/Apap 10MG-325MG] 1 EA TAB No Conflict Check, 1 EA PO Q6H PRN for MODERATE PAIN (4-6) for 30 Days Prov:CHLOE ESCUDERO VOCATIONAL EXAMINER 06/22/19 Zolpidem Tartrate (AMBIEN) 5 Mg Tablet, 5 MG PO HS for 30 Days Prov:CHLOE ESCUDERO VOCATIONAL EXAMINER 06/22/19 [Insulin Lispro] 100 UNIT/1 ML VIAL No Conflict Check, 0 UNIT SQ ACHS high dose SSI ACHS Prov:CHLOE ESCUDERO VOCATIONAL EXAMINER 06/22/19 [Insulin Glargine] 100 UNITS/ML VIAL No Conflict Check, 15 UNITS SQ HS for 30 Days Prov:CHLOE ESCUDERO VOCATIONAL EXAMINER 06/22/19 [Calcium Acetate] 1,334 CAP No Conflict Check, 1334 MG PO TIDWM for 30 Days Prov:CHLOE ESCUDERO VOCATIONAL EXAMINER 06/22/19 [Atorvastatin] 40 MG TAB No Conflict Check, 40 MG PO HS for 30 Days Prov:CHLOE ESCUDERO VOCATIONAL EXAMINER 06/22/19 Aspirin (ASPIRIN CHEW) 81 Mg Chew, 81 MG PO DAILY for 30 Days Prov:CHLOE ESCUDERO VOCATIONAL EXAMINER 06/22/19 Amlodipine Besylate (NORVASC) 10 Mg Tab, 10 MG PO DAILY for 30 Days, TAB Prov:CHLOE ESCUDERO VOCATIONAL EXAMINER 06/22/19 Reported Medications Gabapentin (GABAPENTIN) 100 Mg Capsule, MG PO BID 07/30/19 Tramadol Hcl* (ULTRAM 50MG*) 50 Mg Tab, 50 MG PO BID PRN for MILD PAIN (1-3), TAB 07/30/19 Cinacalcet Hcl (SENSIPAR) 60 Mg Tablet, 60 MG PO AC 12/29/18 Metoprolol Tartrate (METOPROLOL TARTRATE) 100 Mg Tablet, 100 MG PO BID 12/29/18 HORACE MUSTAFA DO Sep 26, 2019 16:33 DUONG MONCADA MD Sep 26, 2019 17:40
[2019-09-26 16:48] LABS: BASOPHILS % 0.5 % (0.0-1.0); EOSINOPHILS # (AUTO) 0.4 (0.0-0.4); EOSINOPHILS % 8.4 % (0.0-6.0); HEMOGLOBIN 11.3 g/dL (14.0-18.0); LYMPHOCYTES # (AUTO) 0.7 (1.0-3.2); LYMPHOCYTES % 17.7 % (18.0-39.1); MEAN CORPUSCULAR HEMOGLOBIN 27.7 pg (28-32); MEAN CORPUSCULAR HGB CONC 29.7 g/dL (31-35); MEAN CORPUSCULAR VOLUME 93.1 fL (81-99); MONOCYTES # (AUTO) 0.3 (0.2-0.8); MONOCYTES % 7.9 % (4.4-11.3); NEUTROPHILS # (AUTO) 2.7 (2.1-6.9); NEUTROPHILS % 65.3 % (38.7-80.0); PLATELET COUNT 143 x10e3/uL (140-360); RED BLOOD COUNT 4.08 x10e6/uL (4.3-5.7); RED CELL DISTRIBUTION WIDTH 16.8 % (11.7-14.4)
[2019-09-26 17:10] LABS: ALBUMIN 3.6 g/dL (3.5-5.0); ALBUMIN/GLOBULIN RATIO 0.7 (0.8-2.0); ANION GAP 17.3 mmol/L (8-16); CALCIUM 9.4 mg/dL (8.4-10.2); CREATININE, SERUM 9.21 mg/dL (0.72-1.25)
[2019-09-26 17:16] LABS: CREATINE KINASE MB 3.3 ng/mL (0-5.0)
--- NOTE | 2019-09-26 17:23 | Diagnostic Imaging Report ---
EXAMINATION: CHEST SINGLE (PORTABLE) INDICATION: cp COMPARISON: None FINDINGS: AP view TUBES and LINES: None. LUNGS/PLEURA: Lungs are well inflated. There is no evidence of pulmonary edema.. Left lower opacity is seen could be atelectasis or pneumonia in appropriate clinical setting. There is no pleural effusion or pneumothorax. HEART AND MEDIASTINUM: Cardiac size is mildly enlarged. BONES AND SOFT TISSUES: Median sternotomy wires are seen and intact. There is a spinal hardware present. No acute osseous lesion. Soft tissues are unremarkable. UPPER ABDOMEN: No free air under the diaphragm. IMPRESSION: Left lower opacity could be atelectasis or pneumonia in appropriate clinical setting Signed by: Ry Arellano MD on 09/26/2019 5:20 PM
[2019-09-26 17:25] LABS: POTASSIUM 6.3 mmol/L (3.5-5.1)
[2019-09-26] MEDS ORDERED: INSULIN REGULAR, HUMAN 100 UNIT/1 ML 3ML VIAL IV ONE (17:30)
[2019-09-26] MEDS ORDERED: SOD POLYSTYRENE SULFONATE SUSP 15 GM/60 ML BTL PO ONE (17:30)
[2019-09-26] MEDS ORDERED: DEXTROSE 50% SYRINGE 50 ML IV STA (17:30)
[2019-09-26] MEDS ORDERED: SODIUM BICARBONATE 8.4% INJ 50 ML SYR IV STA (17:30)
[2019-09-26] MEDS ORDERED: DEXTROSE 50% SYRINGE 50 ML IV PRN (17:45)
[2019-09-26] MEDS ORDERED: CALCIUM GLUCONATE 10% INJ 0.465 MEQ/ML VIAL ONE (17:52)
[2019-09-26] MEDS: HYDRALAZINE HCL 20 MG/ML VIAL IV PRN (18:27)
[2019-09-26] MEDS ORDERED: CALCIUM GLUCONATE 10% INJ 13.95 MEQ in SODIUM CHLORIDE 0.9% 100 ML 100 ML IV ONE (19:00)
[2019-09-26] MEDS ORDERED: ZOLPIDEM TARTRATE 5 MG TAB PO PRN (19:30)
[2019-09-26] MEDS ORDERED: TRAMADOL HCL 50 MG TAB PO PRN (19:30)
[2019-09-26 20:20] VITALS: BP 181/95
[2019-09-26 20:45] VITALS: BP 181/95
[2019-09-26] MEDS ORDERED: INSULIN REGULAR, HUMAN 100 UNIT/1 ML 3ML VIAL SQ SCH (21:00)
[2019-09-26] MEDS: INSULIN LISPRO 100 UNIT/1 ML 3ML VIAL SQ SCH (21:00)
[2019-09-26] MEDS: INSULIN GLARGINE 100 UNITS/ML VIAL SQ SCH (21:00)
--- NOTE | 2019-09-26 21:00 | NUR ---
PATIENT RECEIVED FROM ER. PATIENT IS AAOX3. RESP EVEN AND UNLABORED. NO ACUTE DISTRESS NOTED. TELE IN PLACE. S/P LEFT TOE AMPUTATION. LEFT FOOT DRESSING NOTED, DRY AND INTACT. RIGHT BKA NOTED. ORIENTED TO ROOM. CALL LIGHT WITHIN REACH. INSTRUCT TO CALL FOR ASSISTANCE. BED ALARM ON. BED LOW/LOCKED. SIDE RAIL UP.2. CONTINUE TO MONITOR CLOSELY
[2019-09-26] MEDS: ATORVASTATIN 40 MG TAB PO SCH (21:23)
[2019-09-26] MEDS: METOPROLOL TARTRATE 50 MG TAB PO SCH (21:23)
--- NOTE | 2019-09-26 23:45 | NUR ---
LOW BLOOD SUGAR NOTED 51. PATIENT IS ASYMPTOMATIC. SNACK GIVEN. RECHECK BLOOD SUGAR 109. CONTINUE TO MONITOR
[2019-09-26 23:47] VITALS: BP 181/95
[2019-09-27] VITALS (8 sets, daily range): BP systolic 150–188; BP diastolic 67–85
[2019-09-27 02:05] LABS: CREATINE KINASE 54 IU/L (30-200)
[2019-09-27 03:00] LABS: CHOL/HDL RATIO 2.9 (3.9-4.7)
[2019-09-27] MEDS: HYDRALAZINE HCL 20 MG/ML VIAL IV PRN ×2 (03:08→21:55)
[2019-09-27 05:46] LABS: BASOPHILS % 0.4 % (0.0-1.0); EOSINOPHILS # (AUTO) 0.4 (0.0-0.4); EOSINOPHILS % 6.7 % (0.0-6.0); HEMATOCRIT 35.6 % (38.2-49.6); HEMOGLOBIN 10.6 g/dL (14.0-18.0); MEAN CORPUSCULAR HEMOGLOBIN 27.2 pg (28-32); MEAN CORPUSCULAR HGB CONC 29.8 g/dL (31-35); MEAN CORPUSCULAR VOLUME 91.3 fL (81-99); MONOCYTES # (AUTO) 0.4 (0.2-0.8); MONOCYTES % 7.4 % (4.4-11.3); NEUTROPHILS # (AUTO) 3.8 (2.1-6.9); NEUTROPHILS % 67.3 % (38.7-80.0); PLATELET COUNT 137 x10e3/uL (140-360)
[2019-09-27 06:09] LABS: ALBUMIN 3.1 g/dL (3.5-5.0); ALBUMIN/GLOBULIN RATIO 0.8 (0.8-2.0); ANION GAP 16.8 mmol/L (8-16); CALCIUM 8.5 mg/dL (8.4-10.2); CREATININE, SERUM 9.77 mg/dL (0.72-1.25); POTASSIUM 4.8 mmol/L (3.5-5.1)
[2019-09-27 06:28] LABS: THYROID STIMULATING HORMONE 4.988 uIU/mL (0.350-4.940)
--- NOTE | 2019-09-27 07:00 | NUR ---
PATIENT IS AWAKE, ALERT, AND IN STABLE CONDITION WITH NO S/S OF RESPIRATORY DISTRESS. NO PAIN VOICED. TELEMETRY APPLIED. PATIENT HAS A RIGHT BKA AND A LEFT TOTAL METATARSAL AMPUTATION (DRESSING C/D/I). PATIENT IS TO RECEIVE DIALYSIS TODAY. CALL LIGHT IS WITHIN REACH, PATIENT INSTRUCTED TO CALL FOR ASSISTANCE NEEDED.
[2019-09-27] MEDS: INSULIN LISPRO 100 UNIT/1 ML 3ML VIAL SQ SCH ×4 (07:30→21:00)
[2019-09-27] MEDS ORDERED: LACTULOSE SYRUP 20 GM/30 ML UDC PO PRN (08:00)
[2019-09-27] MEDS: CINACALCET 30 MG TAB PO SCH ×3 (08:56→16:35)
[2019-09-27] MEDS: SEVELAMER CARBONATE 800 MG TAB PO SCH ×3 (08:56→16:35)
[2019-09-27] MEDS: ASPIRIN 81 MG CHEW TAB PO SCH (08:57)
--- NOTE | 2019-09-27 08:57 | Consultation ---
DATE OF CONSULTATION: 09/27/2019 REQUESTING PHYSICIAN: Alton Hussein MD. REASON FOR CONSULTATION: ESRD. Thank you for allowing us to participate in Mr. Bautista' care. HISTORY OF PRESENT ILLNESS: This is a 63-year-old male, history of end-stage renal disease, came with worsening chest pain. He says it waxes and wanes, not clearly related to exertion. He has been constipated. Troponin was negative. Chest x-ray was possibly showing small pneumonia at the left base. COVID PCR is pending. PAST MEDICAL HISTORY: 1. Hypertension. 2. Type 2 diabetes. 3. End-stage renal disease. 4. Right upper extremity AV fistula. 5. Secondary hyperparathyroidism, on cinacalcet. 6. Right AKA. 7. Debridement of the left foot. 8. Neuropathy. 9. Hyperphosphatemia, on binders. MEDICATIONS: Please see list. SOCIAL HISTORY: He lives currently at rehab. FAMILY HISTORY: Hypertension. REVIEW OF SYSTEMS: CONSTITUTIONAL: No fever or chills. CARDIAC: Chest pain as above. RESPIRATORY: Denies dyspnea. VASCULAR: Loss of limb due to PVD. Rest of review is negative. PHYSICAL EXAMINATION: GENERAL: Lying in bed, no distress. VITAL SIGNS: Temperature is 98.1, pulse 69, and blood pressure 161/67. CHEST: Clear. EXTREMITIES: No edema. CARDIAC: Possible S4. VASCULAR: Right-sided AKA. NEURO: Appears to be alert, appropriate. Speech is normal. LABORATORY DATA: K is down to 4.8, creatinine 9.7, BUN 52, anion gap 16, and serum CO2 is 28. Troponin negative. Albumin 3.1. ASSESSMENT: 1. End-stage renal disease. 2. Type 2 diabetes and hypertension. 3. Peripheral vascular disease. 4. Secondary hyperparathyroidism. PLAN: Continue home medications previously. He has already been started on his home binders as well as cinacalcet. Maintenance hemodialysis today. Try to take off 3 L of fluid, usually that helps his blood pressure as it tends to be volume-related. Keep low-potassium diet, p.r.n. lactulose. MD AKIRA HernandezK/MODL /[id number]
[2019-09-27] MEDS: GABAPENTIN 100 MG CAP PO SCH ×2 (08:58→16:35)
[2019-09-27] MEDS: PREGABALIN 75 MG CAP PO SCH (08:58)
[2019-09-27] MEDS ORDERED: METOPROLOL TARTRATE 50 MG TAB PO SCH (09:00)
[2019-09-27 09:57] LABS: CREATINE KINASE MB 2.9 ng/mL (0-5.0)
[2019-09-27] MEDS: AMLODIPINE BESYLATE 10 MG TAB PO SCH (10:27)
[2019-09-27] MEDS: METOPROLOL TARTRATE 50 MG TAB PO SCH ×2 (10:27→17:00)
--- NOTE | 2019-09-27 13:16 | NUR ---
NEW DRESSING APPLIED TO PATIENT'S LEFT FOOT- DRESSING C/D/I.
[2019-09-27] MEDS ORDERED: XARELTO10 MG PO (13:46)
--- NOTE | 2019-09-27 13:52 | NUR ---
Discontinuing PT services since patient is at his baseline functional level.Thank you Addendum: 09/27/19 at 1353 by Angelo hyman PT Amended: Links added.
[2019-09-27] MEDS ORDERED: DIALYVITE ZINC PO (13:53)
[2019-09-27] MEDS ORDERED: CIPRO500 MG PO (13:53)
[2019-09-27] MEDS ORDERED: PROTONIX40 MG/ML PO (13:53)
[2019-09-27] MEDS ORDERED: TYLENOL WITH C1 EACH PO (13:53)
--- NOTE | 2019-09-27 15:49 | NUR ---
CM CALLED TO PT SEVERAL TIMES FOR CHOICE FOR HOME HEALTH RESUMPTION. CALL TO [facility] TO NOTIFY. SHE VERIFIED HIS CELL #. CALL TO PT'S RM AND CELL; STILL NO ANSWER. SPOKE W MISTY. SHE CHECKED W THE PT. PT WILL CALL HIS DTR FOR NAME.
--- NOTE | 2019-09-27 15:56 | NUR ---
CALL FROM [facility]. STATES THE PT IS ON SERVICE W [facility]. REFERRAL FAXED TO [facility] @ OFF: [phone] / FAX: [phone]
--- NOTE | 2019-09-27 19:26 | NUR ---
PATIENT IS IN STABLE CONDITION WITH NO S/S OF RESPIRATORY DISTRESS. NO PAIN VOICED. TELEMETRY APPLIED. PATIENT IS RECEIVING DIALYSIS AT THIS TIME/. NIGHT NURSE INFORMED PATIENT IS TO DC AFTER DIALYSIS THIS EVENING- PATIENT AWARE WELL. CALL LIGHT IS WITHIN REACH, PATIENT INSTRUCTED TO CALL FOR ASSISTANCE NEEDED. BEDSIDE SHIFT REPORT COMPLETED WITH ONCOMING NURSE.
--- NOTE | 2019-09-27 19:41 | NUR ---
RECEIVED JAMEY IN BED AOX3 GETTING DIALYSIS .NO ACUTE DISTRESS NOTED PLAN TO D/C HOME AFTER DIALYSIS TELE #14 SHOWS SR CALL LIGHT WITH IN REACH ,CONTINUE TO MONITOR
--- NOTE | 2019-09-27 20:41 | Discharge Summary ---
ADMISSION DIAGNOSES: Chest pain, hyperkalemia, end-stage renal disease, type 2 diabetes with end-stage renal disease, hyperlipidemia, neuropathy, bilateral lower extremity amputation. DISCHARGE DIAGNOSES: Chest pain, hyperkalemia, end-stage renal disease, type 2 diabetes with end-stage renal disease, hyperlipidemia, neuropathy, bilateral lower extremity amputation plus rule out DC. HISTORY: End-stage renal disease, type 2 diabetes, hypertension, CAD, hyperlipidemia, neuropathy, hyperparathyroidism. SURGICAL HISTORY: Right BKA, left foot TMA, right arm AV fistula, neck surgery, back surgery, thyroid surgery. FAMILY HISTORY: Noncontributory. SOCIAL HISTORY: Noncontributory. HOSPITAL COURSE: A 63-year-old male, admits with complaints of left-sided substernal pain that began yesterday after giving himself a bath. He denies shortness of breath and diaphoresis. He had associated dizziness. In the ER, his potassium was 6.3. Nephrology was consulted. Troponins were negative x3. Echo showed an EF of 55%. The patient was given Kayexalate and insulin for the potassium. The following day, he received his normal dialysis schedule. As the troponins were negative and the echo was normal, the patient will discharge home and follow up with primary care in 1 to 2 weeks. He will continue his normal dialysis schedule. The patient understands instructions and agrees to plan. Vital signs stable. The patient is afebrile. Dictated by Mary Glover NP Alton Hussein MD CINDY/MODL /[id number]
[2019-09-27] MEDS: INSULIN GLARGINE 100 UNITS/ML VIAL SQ SCH (21:00)
[2019-09-27] MEDS ORDERED: NALOXONE HCL INJ 0.4 MG/ML AMP ONE (22:28)
[2019-09-27] MEDS: ATORVASTATIN 40 MG TAB PO SCH (22:43)
--- NOTE | 2019-09-27 23:00 | NUR ---
PT HAD DIALYZED AND TAKEN 3.5 L .NO ACUTE DISTRESS NOTED .EXPLAINED THE PT ABOUT DISCHARGE WENT TO THE PT TO SIGN THE DISCHARGE PAPER ,PT WAS LITHARGE B/P 137/85 R 18 HR 58 T 97.4 AXILIARY BS 124 .PT WAS NOT RESPONDING CALLED RAPID.AND RAPID TEAM GIVEN NARCAN AND BS REDUCED 104 AND GIVEN 1/2 AMPLE OF D50 .PT CAME ALERT AND STARTED TALKING ,DR JEWELL NOTIFIED DR COBOS D/Robin DISCHARGE AND ADMIT THE PT .DR JEWELL T HEAD,CBC,CMP,MAG ,PHOS ABG..
[2019-09-27 23:09] LABS: BASOPHILS % 0.6 % (0.0-1.0); EOSINOPHILS # (AUTO) 0.4 (0.0-0.4); EOSINOPHILS % 6.6 % (0.0-6.0); HEMATOCRIT 38.4 % (38.2-49.6); HEMOGLOBIN 11.6 g/dL (14.0-18.0); LYMPHOCYTES # (AUTO) 0.9 (1.0-3.2); LYMPHOCYTES % 16.5 % (18.0-39.1); MEAN CORPUSCULAR HEMOGLOBIN 27.6 pg (28-32); MEAN CORPUSCULAR HGB CONC 30.2 g/dL (31-35); MEAN CORPUSCULAR VOLUME 91.4 fL (81-99); MONOCYTES # (AUTO) 0.5 (0.2-0.8); NEUTROPHILS # (AUTO) 3.7 (2.1-6.9); NEUTROPHILS % 67.1 % (38.7-80.0); PLATELET COUNT 137 x10e3/uL (140-360); RED CELL DISTRIBUTION WIDTH 17.2 % (11.7-14.4)
[2019-09-27 23:28] LABS: ALBUMIN 3.5 g/dL (3.5-5.0); ALBUMIN/GLOBULIN RATIO 0.7 (0.8-2.0); ANION GAP 18.7 mmol/L (8-16); CALCIUM 8.8 mg/dL (8.4-10.2); CREATININE, SERUM 6.06 mg/dL (0.72-1.25); PHOSPHORUS 2.8 MG/DL (2.3-4.7); POTASSIUM 3.7 mmol/L (3.5-5.1)
[2019-09-28] VITALS (8 sets, daily range): BP systolic 145–189; BP diastolic 67–82
--- NOTE | 2019-09-28 00:31 | Diagnostic Imaging Report ---
Examination: CT head without contrast Clinical Indication: Lethargic. Technique: Transaxial noncontrast images from the skull base through the vertex were obtained. Sagittal and coronal reformatted images were done. Dose modulation, iterative reconstruction, and/or weight based adjustment of the mA/kV was utilized to reduce the radiation dose to as low as reasonably achievable. Comparison: Head CT dated August 04, 2019. Findings: Scalp: No abnormalities. Bones: Intact. No fractures. No blastic or lytic lesions. Brain sulci: Mild volume loss for patient's age. Ventricles: No hydrocephalus. . Extra-axial space: No acute abnormalities. Unchanged right frontal 4.9cm arachnoid cyst. Parenchyma: There are subtle patchy areas of low-attenuation within subcortical and periventricular white matter, nonspecific, but could represent microvascular ischemic disease. No masses, hemorrhage, or acute or chronic cortical based vascular insults. Suprasellar region: No abnormalities. Craniocervical junction: The foramen magnum is patent. No Chiari one malformation. Incidental findings: Vascular calcifications of the scalp and cavernous and supraclinoid internal carotid arteries. Impression: 1. No acute intracranial finding when compared to prior exam August 04, 2019. 2. Unchanged chronic microvascular ischemic change and volume loss. 3. Unchanged 4.9cm right frontal arachnoid cyst. Signed by: Dr. Magda Stephens M.D. on 09/28/2019 12:27 AM
--- NOTE | 2019-09-28 02:30 | NUR ---
ABG SHOWS PO2 50 NOTIFIED PRINCE REYES GIVEN THE ODER TO START 10L 02. CT OF BRAIN DONE RESULT READ TO PRINCE REYES .PT RESTING CONTINUE TO MONITOR
--- NOTE | 2019-09-28 06:02 | NUR ---
PT RESTING RESPRATIONS ARE EVEN AND UNLABORED BP 169/67 HR 78 02 STAT 98% .CALL LIGHT WITH IN REACH .CONTINUE TO MONITOR
--- NOTE | 2019-09-28 06:23 | NUR ---
CALLED DR ELLIS FOR CONSULT .DR ELLIS SAID HE WIIL SEE THE PT
[2019-09-28 06:51] LABS: BASOPHILS % 0.3 % (0.0-1.0); EOSINOPHILS % 0.2 % (0.0-6.0); HEMATOCRIT 40.1 % (38.2-49.6); HEMOGLOBIN 12.2 g/dL (14.0-18.0); LYMPHOCYTES # (AUTO) 0.5 (1.0-3.2); LYMPHOCYTES % 4.7 % (18.0-39.1); MEAN CORPUSCULAR HEMOGLOBIN 28.5 pg (28-32); MEAN CORPUSCULAR HGB CONC 30.4 g/dL (31-35); MEAN CORPUSCULAR VOLUME 93.7 fL (81-99); MONOCYTES # (AUTO) 0.3 (0.2-0.8); MONOCYTES % 3.1 % (4.4-11.3); NEUTROPHILS # (AUTO) 9.8 (2.1-6.9); NEUTROPHILS % 91.2 % (38.7-80.0); PLATELET COUNT 159 x10e3/uL (140-360); RED BLOOD COUNT 4.28 x10e6/uL (4.3-5.7); RED CELL DISTRIBUTION WIDTH 17.2 % (11.7-14.4)
[2019-09-28] MEDS ORDERED: SODIUM CHLORIDE 0.9% 1000ML 2,000 ML IV PRN (07:00)
--- NOTE | 2019-09-28 07:05 | NUR ---
PATIENT IS ALERT TO SELF AND PLACE; IN STABLE CONDITION WITH NO S/S OF RESPIRATORY DISTRESS. NO PAIN VOICED. TELEMETRY APPLIED WITH PULSE OX APPLIED. 02 APPLIED AT 10L NC HIGH FLOW. LEFT TOTAL METATARSAL AMPUTATION-DRESSING C/D/I. CALL LIGHT IS WITHIN REACH, PATIENT INSTRUCTED TO CALL FOR ASSISTANCE NEEDED.
[2019-09-28 07:15] LABS: ALBUMIN 3.4 g/dL (3.5-5.0); ALBUMIN/GLOBULIN RATIO 0.8 (0.8-2.0); ANION GAP 18.2 mmol/L (8-16); CALCIUM 8.5 mg/dL (8.4-10.2); CREATININE, SERUM 7.26 mg/dL (0.72-1.25); POTASSIUM 4.2 mmol/L (3.5-5.1)
--- NOTE | 2019-09-28 07:25 | NUR ---
BEDSIDE REPORT GIVEN TO THE ONCOMING NURSE
[2019-09-28] MEDS: INSULIN LISPRO 100 UNIT/1 ML 3ML VIAL SQ SCH ×4 (07:30→21:00)
[2019-09-28] MEDS: SEVELAMER CARBONATE 800 MG TAB PO SCH ×3 (08:03→16:31)
[2019-09-28] MEDS: CINACALCET 30 MG TAB PO SCH ×3 (08:03→16:30)
[2019-09-28] MEDS: AMLODIPINE BESYLATE 10 MG TAB PO SCH (08:05)
[2019-09-28] MEDS: PREGABALIN 75 MG CAP PO SCH (08:05)
[2019-09-28] MEDS: ASPIRIN 81 MG CHEW TAB PO SCH (08:05)
[2019-09-28] MEDS: GABAPENTIN 100 MG CAP PO SCH ×2 (08:05→16:31)
[2019-09-28] MEDS: METOPROLOL TARTRATE 50 MG TAB PO SCH ×2 (08:05→16:31)
[2019-09-28 08:10] LABS: EOSINOPHILS % (MANUAL) 2 % (0-7); LYMPHOCYTES % (MANUAL) 6 % (19-48); MONOCYTES % (MANUAL) 5 % (3.4-9.0); NEUTROPHILS % (MANUAL) 87 % (40-74)
[2019-09-28 08:11] LABS: ANISOCYTOSIS SLIGHT; OVALOCYTES MODERATE; PLATELET ESTIMATE ADEQUATE; PLATELET MORPHOLOGY COMMENT NORMAL; POLYCHROMASIA FEW; RBC MORPHOLOGY COMMENT ABNORMAL
--- NOTE | 2019-09-28 14:22 | NUR ---
CALL FROM JENI WILSON TO CHECK ON THE PT. FROM [phone] INFORMED THE PT WAS ADMITTED. STATES SHE WILL CALL BACK FOR F/U TOMORROW.
[2019-09-28] MEDS ORDERED: PIPERACILLIN/TAZO 2.25 GM 50 ML IV SCH (18:00)
--- NOTE | 2019-09-28 18:52 | Diagnostic Imaging Report ---
EXAM: CT Chest WITHOUT contrast 09/28/2019 6:12 PM INDICATION: Left lower lung infiltrate. Chest pain. End stage renal disease. COMPARISON: 09/26/2019 TECHNIQUE: Chest was scanned utilizing a multidetector helical scanner from the lung apex through the level of the adrenal glands without administration of IV contrast. Absence of intravenous contrast decreases sensitivity for detection of lymphadenopathy and vascular pathology. Coronal and sagittal reformations were obtained. Routine protocol was performed. IV CONTRAST: None COMPLICATIONS: None RADIATION DOSE: Total DLP: 457 mGy*cm Estimated effective dose: (DLP x 0.014 x size factor) mSv CTDIvol has been reviewed. It is below the limits set by the Radiation Protocol Committee (RPC). Dose modulation, iterative reconstruction, and/or weight based adjustment of the mA/kV was utilized to reduce the radiation dose to as low as reasonably achievable. FINDINGS: LINES/ TUBES: Sternal wires. Superior vena cava/right brachiocephalic metallic stent graft. LUNGS AND AIRWAYS: Tree in bud and scattered groundglass opacity most pronounced in the right upper and lower lung worrisome for multifocal pneumonia without focal consolidation. Additionally, there are mild chronic appearing changes in the lungs. Airways are normal. PLEURA: The pleural spaces are clear. HEART AND MEDIASTINUM: The thyroid gland is normal. No mediastinal, hilar or axillary lymphadenopathy. The heart is normal in size. There is no pericardial effusion. UPPER ABDOMEN: Atrophy and cystic change of the kidneys. BONES: Heterogeneous appearance to the bones consistent with patient's history of end-stage renal disease. SOFT TISSUES: Scattered vascular calcifications. Venous collaterals in the anterior soft tissues. IMPRESSION: Tree in bud and scattered groundglass opacity most pronounced in the right upper and lower lung worrisome for multifocal pneumonia without focal consolidation. Additionally, there are mild chronic appearing changes in the lungs. Heterogeneous appearance to the bones consistent with patient's history of end-stage renal disease. Atrophy and cystic change of the kidneys. Venous collaterals in the anterior soft tissues. Signed by: Dr. Chilo Granado M.D. on 09/28/2019 6:48 PM
--- NOTE | 2019-09-28 19:13 | NUR ---
PATIENT IS IN STABLE CONDITION WITH NO S/S OF RESPIRATORY DISTRESS. NO PAIN VOICED. 02 APPLIED AT 7L HIGH FLOW; TELEMETRY APPLIED. PATIENT IS TO RECEIVE DIALYSIS TOMORROW. DRESSING TO LEFT FOOT IS C/D/I. CALL LIGHT IS WITHIN REACH, PATIENT INSTRUCTED TO CALL FOR ASSISTANCE NEEDED. BEDSIDE SHIFT REPORT COMPLETED WITH ONCOMING NURSE.
--- NOTE | 2019-09-28 19:50 | NUR ---
PATIENT IS IN STABLE CONDITION WITH NO S/S OF RESPIRATORY DISTRESS. DENIES PAIN. 02 AT 7L HIGH FLOW; TELEMETRY IS ON. PATIENT IS TO RECEIVE DIALYSIS TOMORROW. LEFT FOOT DRESSING . CALL LIGHT IS WITHIN REACH, CONTINUE TO MONITOR
[2019-09-28] MEDS: PIPERACILLIN/TAZO 2.25 GM 50 ML IV SCH (20:00)
[2019-09-28] MEDS ORDERED: SODIUM CHLORIDE 0.9% 250ML 250 ML ONE (20:50)
--- NOTE | 2019-09-28 20:52 | Consultation ---
DATE OF CONSULTATION: Pulmonary Critical Care Consultation CHIEF COMPLAINT: Increased oxygen requirement. HISTORY OF PRESENT ILLNESS: The patient is a 63-year-old man. He has a history of diabetes. He has end-stage renal disease and has been on dialysis. He also has a history of prior amputations. He was initially admitted with some left-sided chest discomfort and found to have an elevated potassium. He was seen by Nephrology. He was evaluated for myocardial infarction and it was negative. Apparently, he was scheduled for discharge, but then became unresponsive. Rapid was cold and was found to have low oxygen levels. He required high-flow oxygen. He also has had some low-grade temperature to 100.3. PAST MEDICAL HISTORY: 1. Diabetes. 2. Diabetic neuropathy. 3. Peripheral vascular disease. 4. End-stage renal disease. PAST SURGICAL HISTORY: 1. Status post below the knee amputation on the right side. 2. Status post transmetatarsal amputation on the left side. 3. Status post cardiac stent. 4. Status post dialysis graft placement. SOCIAL HISTORY: The patient is not an active smoker or drinker. ALLERGIES: HE IS ALLERGIC TO HEPARIN AND CONTRAST DYE. FAMILY HISTORY: Noncontributory. REVIEW OF SYSTEMS: He did have some fever last night. He is not having any headache. He had chest discomfort on admission, but has resolved. There is no chest pain now. He does have some dyspnea. There is no cough. There is no abdominal pain. He has no nausea or vomiting. PHYSICAL EXAMINATION: VITAL SIGNS: The patient is afebrile. The blood pressure is 148/72, saturation is 100%, but he is on high-flow nasal cannula. HEENT: No facial swelling or erythema. CARDIAC: Regular rate and rhythm with normal S1, S2. LUNGS: Auscultation of lungs reveals crackles at the bases. There is no wheezing. ABDOMEN: Soft, nontender. There is no rebound or guarding. EXTREMITIES: No leg edema or calf tenderness. There is a [id number] amputation on the right side and a transmetatarsal amputation on the left side. LABORATORY DATA: White blood cell count is 10.7 and hemoglobin is 12.2. The platelet count is 159. BUN to creatinine ratio is 28 to 7.26 and the other electrolytes are within normal limits. Albumin is 3.4. RADIOGRAPHIC DATA: Chest x-ray shows a left lower lobe opacity. IMPRESSION: 1. Left lower lobe aspiration pneumonia. 2. End-stage renal disease. 3. Diabetes. 4. Diabetic neuropathy. 5. Severe peripheral vascular disease. 6. Coronary artery disease. PLAN: 1. The patient will have a CT scan of the chest. 2. Begin antibiotics for probable aspiration pneumonia. 3. COVID-19 testing. 4. Speech Therapy to evaluate swallowing function. 5. Wean oxygen as tolerated. Paulo Sandoval MD [facility]/MODL /[id number]
[2019-09-28] MEDS: INSULIN GLARGINE 100 UNITS/ML VIAL SQ SCH (21:00)
[2019-09-28] MEDS: ATORVASTATIN 40 MG TAB PO SCH (21:31)
--- NOTE | 2019-09-28 21:58 | Progress Note ---
DATE: CONSULTING PHYSICIANS: 1. Silver Butt MD, with Nephrology. 2. Paulo Sandoval MD, with Pulmonology. SUBJECTIVE: The patient is lying supine in bed. He is wearing a mask. Denies any trouble swallowing. Says he has a headache rated 7/10 on a 0-10 pain scale. Denies sore throat. Denies use of oxygen at home. Denies chest pain. States his last bowel movement was this morning. OBJECTIVE: VITAL SIGNS: Temperature 100.3, pulse 79, blood pressure 189/82, which was subsequently improved to 148/72, respirations 18, and oxygen saturation 98%. GENERAL: No acute distress. LUNGS: With scattered crackles. Currently has oxygen at 7 L/minute via high-flow nasal cannula with humidification. HEENT: EOMI. NECK: Supple. CARDIOVASCULAR: Regular rate and rhythm. No murmur. ABDOMEN: Bowel sounds positive. Soft. No guarding. EXTREMITIES: Without pitting edema. No clubbing, cyanosis, or marked swelling. NEUROLOGICAL: GCS 15. Nonfocal. LABORATORY DATA: Today, WBCs 10.78, hemoglobin 12.2, hematocrit 40.1, platelets 159. Sodium 139, potassium 4.2, chloride 96, CO2 29, anion gap 18.2, BUN 28, creatinine 7.26, estimated GFR 9, glucose 186, calcium 8.5, total bilirubin 0.6, AST 21, ALT 11, alkaline phosphatase 94, total protein 7.9, albumin 3.4. Fingerstick blood glucose 179, then 241, then 154, then [address] of the brain done yesterday shows no acute intracranial finding when compared to the prior exam on August 04, 2019. CT of the chest showed a tree-in-bud and scattered ground-glass opacity, most pronounced in the right upper and lower lung, worrisome for multifocal pneumonia without focal consolidation. Additionally, there are mild chronic appearing changes in the lungs. Heterogeneous appearance to the bones consistent with the patient's history of end-stage renal disease, atrophy and cystic changes of the kidneys. Venous collaterals in the anterior soft tissues. On 09/25, coronavirus is pending. Hepatitis panel pending. Per the lab, coronavirus collected on 09/25 was sent to [facility]. ASSESSMENT/PLAN: 1. Chest pain. Currently denies chest pain. Cardiac biomarkers negative x3 sets. Echocardiogram done on 09/26 shows estimated ejection fraction 55%. Lipids within normal limits. Continue aspirin. 2. Multifocal pneumonia, rule out COVID-19. [facility] COVID-19 test ordered stat with specimen to be sent to [facility] as opposed to [facility]. 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 Zosyn 2.25 g IV every 8 hours, started by Dr. Sandoval with Pulmonology. 3. Hyperkalemia. Potassium 4.2 (3.7). The potassium was 6.3 on admission. Hyperkalemia, resolved. 4. End-stage renal disease. Hemodialysis planned for 09/28 per Nephrology. 5. Uncontrolled type 2 diabetes mellitus with end-stage renal disease and hyperglycemia. Most recent hemoglobin A1c was 8.3% on 06/10/2019. We will reassess in a.m. BMP, CBC in a.m. Serum blood glucose 186 this morning. Current fingerstick blood glucose 79. Yesterday after hemodialysis, the patient had a rapid response. He was given Narcan 0.8 mg IV without response given due to lethargy, 1/2 amp D50 given with good response. Continue to monitor fingerstick blood glucose levels before meals and at bedtime. Continue renal diabetic diet for nutritional support. 6. Hyperlipidemia. Continue Lipitor. 7. Neuropathy. Continue gabapentin. 8. Bilateral lower extremity amputations. Physical therapy evaluation. 9. Hyperparathyroidism. Nephrology following. 10. Prophylaxis. Protonix. We will check with Nephrology regarding adding Lovenox. Billing code [id number]. Time spent 35 minutes. Dictated by Yohan Omalley NP Alton Hussein MD [facility] /[id number]
[2019-09-29] VITALS (7 sets, daily range): BP systolic 138–183; BP diastolic 70–92
[2019-09-29] MEDS: PIPERACILLIN/TAZO 2.25 GM 50 ML IV SCH ×3 (04:23→20:59)
--- NOTE | 2019-09-29 05:25 | NUR ---
PT RESTING ,DENIES PAIN CALL LIGHT WITH IN REACH ,CONTINUE TO MONITOR
[2019-09-29 06:37] LABS: ANION GAP 19.2 mmol/L (8-16); CALCIUM 7.6 mg/dL (8.4-10.2); CREATININE, SERUM 9.45 mg/dL (0.72-1.25); POTASSIUM 4.2 mmol/L (3.5-5.1)
[2019-09-29 06:57] LABS: BASOPHILS % 0.5 % (0.0-1.0); EOSINOPHILS # (AUTO) 0.3 (0.0-0.4); EOSINOPHILS % 4.7 % (0.0-6.0); HEMATOCRIT 35.4 % (38.2-49.6); HEMOGLOBIN 10.7 g/dL (14.0-18.0); LYMPHOCYTES # (AUTO) 1.1 (1.0-3.2); LYMPHOCYTES % 19.5 % (18.0-39.1); MEAN CORPUSCULAR HEMOGLOBIN 27.8 pg (28-32); MEAN CORPUSCULAR HGB CONC 30.2 g/dL (31-35); MEAN CORPUSCULAR VOLUME 91.9 fL (81-99); MONOCYTES # (AUTO) 0.6 (0.2-0.8); MONOCYTES % 10.8 % (4.4-11.3); NEUTROPHILS # (AUTO) 3.7 (2.1-6.9); NEUTROPHILS % 64.3 % (38.7-80.0); PLATELET COUNT 136 x10e3/uL (140-360); RED BLOOD COUNT 3.85 x10e6/uL (4.3-5.7); RED CELL DISTRIBUTION WIDTH 16.6 % (11.7-14.4)
--- NOTE | 2019-09-29 07:28 | NUR ---
REPORT GIVEN TO THE ONCOMING NURSE
[2019-09-29] MEDS ORDERED: ENOXAPARIN SOD INJ 40 MG/0.4 ML SYR SC STA (07:36)
[2019-09-29] MEDS ORDERED: ACETAMIN/BUTALBITAL/CAFFEINE TAB PO PRN (07:45)
[2019-09-29] MEDS: PREGABALIN 75 MG CAP PO SCH (08:10)
[2019-09-29] MEDS: GABAPENTIN 100 MG CAP PO SCH ×2 (08:10→17:29)
[2019-09-29] MEDS: ASPIRIN 81 MG CHEW TAB PO SCH (08:10)
[2019-09-29] MEDS: CINACALCET 30 MG TAB PO SCH ×3 (08:10→17:28)
[2019-09-29] MEDS: INSULIN LISPRO 100 UNIT/1 ML 3ML VIAL SQ SCH ×4 (08:10→21:00)
[2019-09-29] MEDS: SEVELAMER CARBONATE 800 MG TAB PO SCH ×3 (08:10→17:00)
[2019-09-29] MEDS: ASPIRIN 325 MG TAB EC PO SCH (09:00)
[2019-09-29] MEDS ORDERED: SODIUM CHLORIDE 0.9% 1000ML 2,000 ML IV PRN (09:15)
[2019-09-29] MEDS ORDERED: SODIUM CHLORIDE 0.9% 250ML 250 ML ONE (11:08)
[2019-09-29] MEDS: METOPROLOL TARTRATE 50 MG TAB PO SCH ×2 (11:55→17:29)
[2019-09-29] MEDS: AMLODIPINE BESYLATE 10 MG TAB PO SCH (12:00)
--- NOTE | 2019-09-29 16:29 | NUR ---
Nutrition Screen Note RD Recommendation for Physician: -Continue renal/diabetic diet Plan of Care: RD following, monitoring for tolerance and adequacy Nutrition reason for involvement: Diagnosis - ESRD Primary Diagnose(s): chest pain, ESRD, hyperkalemia PMH: Hypertension, Type 2 diabetes, End-stage renal disease, Right upper extremity AV fistula, Secondary hyperparathyroidism, Right AKA, Debridement of the left foot, Neuropathy, Hyperphosphatemia Ht: 72 in (per admission in July 2019) Wt:180 lb BMI: 24.4 kg/m2 IBW:[address] Assessment: (09/28) Chart reviewed. Labs and meds reviewed. Pt is a 63 year old male admitted with chest pain, ESRD, and hyperkalemia. It is recorded that pt consumed 100% of dinner meal yesterday. Weight loss is not evident per weight history in chart. Pt weighed 180 lbs in June 2019. Will continue to monitor Current Diet: renal/diabetic diet Malnutrition Evaluation (09/29/19) The patient does not meet criteria for a specified degree of malnutrition at this time. Will re-evaluate at follow-up as appropriate. Diet Education Needs Assessment: RD is available for diet education as needed Nutrition Care Level: low Signed: Ada Etienne, RD, LD
--- NOTE | 2019-09-29 19:34 | Progress Note ---
DATE: SUBJECTIVE: The patient had an initial COVID test that was negative. He is now saturating well on nasal cannula at 3 L. He has no fevers. PHYSICAL EXAMINATION: VITAL SIGNS: Stable. HEENT: Shows no facial swelling or erythema. CARDIAC: Reveals regular rate and rhythm with normal S1 and S2. LUNGS: Auscultation of lungs reveals clear breath sounds bilaterally. There is no wheezing. ABDOMEN: Soft, nontender. There is no rebound or guarding. EXTREMITIES: Shows no leg edema or calf tenderness. There is no cyanosis or clubbing. SKIN: Shows no rashes. NEUROLOGIC: Shows no focal abnormalities. LABORATORY DATA: White blood cell count is 5.7, hemoglobin is 10.7. The platelet count is 136. The BUN to creatinine ratio is 40 to 9.45 and the other electrolytes are within normal limits. RADIOGRAPHIC DATA: Chest x-ray shows tree-in-bud and scattered ground-glass opacities, most pronounced in the right upper lobe. IMPRESSION: 1. Probable bacterial pneumonia. It is important to cover for healthcare-acquired organisms and aspiration in a patient with dialysis. 2. End-stage renal disease. 3. Diabetes. 4. Severe peripheral vascular disease. PLAN: 1. Continue current antibiotics. 2. Speech therapy evaluation. 3. Wean oxygen as tolerated. 4. Continue dialysis as needed. 5. Repeat COVID test is pending. Paulo Sandoval MD [facility]/MOD[facility] /[id number]
--- NOTE | 2019-09-29 19:45 | NUR ---
Report given to oncoming nurse of patient's status. Resting in bed, side rails upx2, call light within reach, bed alarm on. NO s/s of acute distress noted.
[2019-09-29] MEDS: INSULIN GLARGINE 100 UNITS/ML VIAL SQ SCH (21:00)
[2019-09-29] MEDS: ATORVASTATIN 40 MG TAB PO SCH (22:00)
--- NOTE | 2019-09-29 22:00 | NUR ---
Family member brought food.had it.resting in the bed.stable condition.phone and call light within reach.instructed to call for assistance as needed.
--- NOTE | 2019-09-29 22:30 | Progress Note ---
DATE: 09/29/2019 SUBJECTIVE: The patient is lying supine in bed. States overall he feels okay. His stomach feels funny. He had hemodialysis today. Denies pain. No headache, dizziness, sore throat, trouble swallowing, shortness of breath, cough, phlegm, nausea, vomiting, diarrhea, or constipation. OBJECTIVE: VITAL SIGNS: Temperature 98.4, heart rate 63, blood pressure 152/70, respirations 17, oxygen saturation 100%. GENERAL: Supine. In no acute distress. LUNGS: Clear to auscultation. Respiratory pattern even and unlabored. He is currently on 4 L of oxygen high-flow via nasal cannula with humidification. HEENT: EOMI. NECK: Supple. CARDIOVASCULAR: Regular rate and rhythm without murmur. ABDOMEN: Bowel sounds positive. Soft, nontender. EXTREMITIES: No pitting edema. No clubbing, cyanosis, or marked swelling. He has a right [id number] amputation. He has wounds on the left lower extremity. NEUROLOGICAL: GCS 15. Nonfocal. LABORATORY DATA: WBCs 5.74, hemoglobin 10.7, hematocrit 25.4, platelets 136. Sodium 140, potassium 4.2, chloride 96, CO2 29, anion gap 19.2, BUN 40, creatinine 9.45, estimated GFR is 7, glucose 161. Fingerstick blood glucose levels 182, 115. Hemoglobin A1c 4.7%. Calcium 7.6. Coronavirus PCR not detected on 09/25 and 09/27. Hepatitis panel negative. DIAGNOSTIC DATA: The patient had a bedside swallow evaluation by speech therapy today and passed without difficulty. ASSESSMENT/PLAN: 1. Multifocal pneumonia, probable bacteria, coronavirus disease-2019 ruled out. 2. Coronavirus disease test negative. Continue Zosyn per Pulmonology. WBC 5.74. The patient had complained of chest pain on admission, currently no chest pain. Cardiac biomarkers negative x3 sets. Echocardiogram on 09/26 showed EF 55%. Lipids within normal limits. Continue aspirin. 3. End-stage renal disease. Hemodialysis today with 2.2 L off. 4. Uncontrolled type 2 diabetes mellitus with end-stage renal disease and hyperglycemia, status post rapid response on 09/26, likely due to hypoglycemia. Hemoglobin A1c on 06/10/2019 8.3% and today 4.7%. Fingerstick blood glucose levels fluctuate. Continue renal diabetic diet for nutritional support. 5. Hyperlipidemia, on Lipitor. 6. Neuropathy. Gabapentin. 7. Severe peripheral vascular disease, status post right BKA. Physical Therapy to evaluate. 8. Hyperparathyroidism. Defer to Nephrology. 9. Prophylaxis, Protonix. Billing code [id number]. Time spent 35 minutes. Dictated by Yohan Omalley NP Alton Hussein MD [facility] /[id number]
[2019-09-30] VITALS: BP 152/73
[2019-09-30 04:00] VITALS: BP 162/85
[2019-09-30] MEDS: PIPERACILLIN/TAZO 2.25 GM 50 ML IV SCH ×3 (04:09→19:57)
[2019-09-30] MEDS: INSULIN LISPRO 100 UNIT/1 ML 3ML VIAL SQ SCH ×2 (07:30→13:34)
[2019-09-30] MEDS: HYDRALAZINE HCL 20 MG/ML VIAL IV PRN (08:32)
[2019-09-30 08:33] VITALS: BP 172/111
[2019-09-30] MEDS: CINACALCET 30 MG TAB PO SCH ×3 (08:41→17:30)
[2019-09-30] MEDS: METOPROLOL TARTRATE 50 MG TAB PO SCH ×2 (08:42→17:30)
[2019-09-30] MEDS: PREGABALIN 75 MG CAP PO SCH (08:42)
[2019-09-30] MEDS: SEVELAMER CARBONATE 800 MG TAB PO SCH ×3 (08:42→17:29)
[2019-09-30] MEDS: AMLODIPINE BESYLATE 10 MG TAB PO SCH (08:42)
[2019-09-30] MEDS: GABAPENTIN 100 MG CAP PO SCH ×2 (08:42→17:29)
[2019-09-30] MEDS: ASPIRIN 325 MG TAB EC PO SCH (08:42)
[2019-09-30 08:45] VITALS: BP 172/111
--- NOTE | 2019-09-30 11:52 | NUR ---
WOUND CARE CONSULT FOR63 YO MALE HX OF PVD,ESRD, RBKA, L TMA LEANDRA 18 ON CONSERVATIVE PUP STATUS AND INTERVENTIONS AND ALTERNATING PRESSURE MATTRESS LABS: WBC-5.74 HGB_10.7 GLUCOSE-161 SKIN ASSESSMENT COMPLETE PATIENT PRESENTS WITH HEALED RT BKA LEFT TMA SUTURE LINE SLOW HEALING WITH NECROTIC DRY RIDGE AND DRY SCALY FOOT LOOSE DRY SKIN IS REMOVED FOOT IS MOISTURIZED PATIENT REPORTS HE HAS APPOINTMENT WITH MD FOR WOUND ASSESSMENT AND POSSIBLE SUTURE REMOVAL RECOMMENDATIONS: NURSING TO CONTINUE TO MAINTAIN CONSERVATIVE PUP STATUS AND INTERVENTIONS AND PATIENT PREFERS ALTERNATING PRESSURE MATTRESS NURSING TO CONTINUE TO ASSIST PATIENT OUT OF BED FOR MEALS AND MUCH TOLERATED NURSING TO CONTINUE TO ASSIST PATIENT NEEDED WITH MEALS AND NUTRITIONAL SUPPLEMENTS TO ENSURE PROPER REQUIREMENTS FOR HEALING NURSING TO CONTINUE TO OFFLOAD FOOT AND HEEL NEEDED WITH PILLOW SUSPENSION WHEN IN BED NURSING TO CLEAN LEFT TMA SUTURE LINE WITH NORMAL SALINE DAILY AND APPLY BETADINE RICHELLE AND KERLIX DRESSING Addendum: 09/30/19 at 1200 by Thierry Gutiérrez RN Amended: Links added.
[2019-09-30 12:13] VITALS: BP 158/80
--- NOTE | 2019-09-30 14:43 | Progress Note ---
DATE: SUBJECTIVE: The patient has 2 negative COVID test. He also is feeling better. He is still requiring some oxygen. PHYSICAL EXAMINATION: VITAL SIGNS: The patient is afebrile. The blood pressure is 158/80 and saturation is 100% on 4 L. HEENT: Shows no facial swelling or erythema. CARDIAC: Reveals regular rate and rhythm with normal S1 and S2. LUNGS: Auscultation of lungs reveals decreased breath sounds at the bases. There is no wheezing. ABDOMEN: Soft and nontender. There is no rebound or guarding. EXTREMITIES: Shows no leg edema or calf tenderness. There is no cyanosis or clubbing. SKIN: Shows no rashes. NEUROLOGICAL: Shows no focal abnormalities. LABORATORY DATA: BUN to creatinine ratio is abnormal with a creatinine of 9.45. Electrolytes within normal limits. White blood cell count is 5.7 and the hemoglobin is 10.7. IMPRESSION: 1. Aspiration pneumonia. 2. End-stage renal disease. 3. Diabetes. 4. Severe peripheral vascular disease. PLAN: 1. Complete current antibiotics. 2. Speech therapy evaluation. 3. Wean oxygen. 4. Continue dialysis. 5. Possible discharge home. Paulo Sandoval MD [facility]/MODL /[id number]
[2019-09-30] MEDS ORDERED: LANTUS 3ML100 UNITS/ SC (14:58)
[2019-09-30] MEDS ORDERED: AUGMENTIN 875-1 EACH PO (15:15)
[2019-09-30] MEDS ORDERED: Insulin Lispro SQ (15:15)
[2019-09-30] MEDS ORDERED: LACTULOSE20 GM/30 M PO (15:15)
--- NOTE | 2019-09-30 16:13 | NUR ---
ORDER RECEIVED FOR HOME O2 AND PULSE OXIMETER. CALL TO THE PT TO DISCUSS CHOICE. PT CHOSE [facility]. VERIFIED DEMO. CHOICE LETTER WAS SIGNED AND COPY TO THE CHART. IMM LETTER EXPLAINED TO PT. PT VERBALIZED UNDERSTANDING. IMM LETTER SIGNED. COPY TO PT AND COPY TO CHART. NEL LUJAN, BEDSIDE NURSE, STATES THE PT HOME O2 EVAL SAT @ 99% AND DOES NOT QUALIFY.
[2019-09-30] MEDS: INSULIN REGULAR, HUMAN 100 UNIT/1 ML 3ML VIAL SQ SCH ×2 (16:30→20:41)
[2019-09-30 17:18] VITALS: BP 155/82
--- NOTE | 2019-09-30 19:10 | NUR ---
Received the patient in report.sitting in the bed.no pain voiced.stable condition.waiting for ride to go home.
[2019-09-30] MEDS: ATORVASTATIN 40 MG TAB PO SCH (20:20)
--- NOTE | 2019-09-30 20:40 | NUR ---
Assessment done.no pain voiced.v/s stable.no resp,distress.dc iv and applied pressure dressing.patient discharged home safely with family.escorted via wheel chair to the private auto at the front entrance.
[2019-09-30] MEDS: INSULIN GLARGINE 100 UNITS/ML VIAL SQ SCH (20:41)
--- NOTE | 2019-09-30 23:41 | Discharge Summary ---
CONSULTING PHYSICIANS: 1. Silver Butt MD, with Nephrology. 2. Gemma Dominguez MD, with Nephrology. 3. Paulo Sandoval MD, with Pulmonology. PRIMARY CARE PHYSICIAN: Dr. Zuhair Hyatt. CHIEF COMPLAINT: Chest pain. HISTORY OF PRESENT ILLNESS: The patient is a 63-year-old male who admitted with complaints of left-sided chest pain that radiated to the substernal chest, which began the day prior to admission after giving himself a bath. He denied shortness of breath or diaphoresis on admission. He had associated dizziness in the emergency department. His potassium was 6.3. PAST MEDICAL HISTORY: End-stage renal disease, type 2 diabetes mellitus, hypertension, coronary artery disease, hyperlipidemia, neuropathy, hyperparathyroidism. PAST SURGICAL HISTORY: Right arm AVF, neck surgery, back surgery, thyroid surgery, right BKA, left great toe amputation, left foot transmetatarsal amputation. FAMILY HISTORY: Noncontributory. SOCIAL HISTORY: Noncontributory. ALLERGIES: CONTRAST DYE AND HEPARIN. ADMITTING DIAGNOSES: 1. Chest pain. 2. Hyperkalemia. 3. End-stage renal disease. 4. Type 2 diabetes mellitus with end-stage renal disease. 5. Hyperlipidemia. 6. Neuropathy. 7. Bilateral lower extremity amputations. DISCHARGE DIAGNOSES: 1. Multifocal pneumonia, probable bacterial, coronavirus disease-2019, ruled out. 2. End-stage renal disease. 3. Uncontrolled type 2 diabetes mellitus with end-stage renal disease and hyperglycemia, status post hypoglycemic episode. 4. Hyperlipidemia. 5. Neuropathy. 6. Severe peripheral vascular disease, history of right below-knee amputation, history of left transmetatarsal amputation. 7. Hyperparathyroidism. Labs on admission 09/25, WBC 4.19, hemoglobin 11.3, hematocrit 38, platelets 143. Sodium 141, potassium 6.3, BUN 45, creatinine 9.21, estimated GFR 7. LFTs within normal limits. During his stay, the hemoglobin A1c was 4.7% on 09/28. Coronavirus PCR negative on 09/25 as well as 09/27. Hepatitis panel negative. 09/25, chest x-ray showed left lower opacity, could be atelectasis or pneumonia in appropriate clinical setting. CT of the brain done on 09/26 showed no acute intracranial finding when compared with prior exam on August 04, 2019, unchanged chronic microvascular ischemic change and volume loss, unchanged 4.9 cm right frontal arachnoid cyst. CT of the chest done on 09/27, showed tree-in-bud and scattered ground-glass opacity, most pronounced in the right upper and lower lung, worrisome for multifocal pneumonia without focal consolidation. Additionally, mild chronic appearing changes in the lungs. Heterogeneous appearance in the bones consistent with the patient's history of end-stage renal disease, atrophic and cystic change of the kidneys, venous collaterals and the anterior soft tissues. During his stay, he was on IV Zosyn for the pneumonia. We will send him home on oral Augmentin for [address] After discussing with Dr. Sandoval. The patient continued with dialysis while he was here. He had 2.2 L off yesterday on 09/28. Regarding his chest pain, his troponins were negative x3. Echocardiogram done on 09/26 showed estimated ejection fraction of 55%. Potassium level of 6.3 on admission, improved after Kayexalate and IV insulin, and he did not have any additional hyperkalemia during his stay. Since his troponins were negative and his echo was normal, there was an attempted discharge on 09/27/2019; however, the patient had a rapid response at 2315 on 09/27/2019 with altered mental status. He had just finished dialysis. Fingerstick blood glucose level 140. He was lethargic, specifically somnolent. Otherwise, his physical exam was unchanged. Pupils were pinpoint, so Narcan was given 0.8 mg IV with no effect. He responded to painful stimuli only. One half amp of D50 was given and the patient became more responsive, but still lethargic. Aforementioned CT of the brain, labs and ABG were ordered, although I see no ABG results in the computer or in the chart readily available. Since then, fingerstick blood glucose level has fluctuated some. In general, it has fluctuated from 115 to 187. His blood glucose was 57 this morning about 8 a.m. Thus, I have decreased his Lantus insulin from 15 units to 10 units at bedtime and decreased the sliding scale insulin to low dose to avoid a hypoglycemic episode. He passed a bedside swallow evaluation with speech therapy. There was no difficulty with his hemodialysis done yesterday on 09/28. He was on oxygen at 7 L/minute on 09/27, yesterday on 4 L of oxygen via nasal cannula, and today on 4 L of oxygen as well. I have entered orders for a home oxygen evaluation. Heidi ALMONTE aware. We will have a respiratory therapy do this. Order entered for case management regarding the home oxygen evaluation as well as a possible pulse oximeter. Per Sandra with Case Management, she spoke with Michell at [facility], who said we can write an order for pulse oximeter and they may be able send someone out to the patient's home to do oxygen weaning. The patient still does have pneumonia, but is improving. His white blood cell count today 5.74, oxygen saturation 100% on 4 L of oxygen via nasal cannula. The patient to continue home health for wound care at the left transmetatarsal amputation site. Augmentin 750 mg dose p.o. b.i.d. for 7 days. Follow up with [facility] as per his usual schedule. Follow up with PCP, Dr. Zuhair Hyatt in 1-2 weeks. Follow up with Dr. Sandoval in 3 weeks. Monitor fingerstick blood glucose levels closely due to the recent hypoglycemic event. Coordinate with PCP regarding dialysis care. Dictated by Yohan Omalley NP MD JOSE StaplesP/MODL /[id number]
== END 2019-09-30 20:40 | disposition home or self-care (01) | DRG 177 ==
LOC: ER 16:12 → ERHOLD 17:43 → MED/SURG3 21:15 → OBSVTOIN 09-28 12:45 → MED/SURG3 09-29 06:45
PROVIDERS: ADMIT Internal Medicine; ATTEND Internal Medicine
PROC: 5A1D70Z Performance of Urinary Filtration, Intermittent, Less than 6 Hours Per Day (ICD-10-PCS; principal; 2019-09-29)
DX: J69.0 Pneumonitis due to inhalation of food and vomit (principal); N18.6 End stage renal disease; N25.81 Secondary hyperparathyroidism of renal origin; E11.22 Type 2 diabetes mellitus with diabetic chronic kidney disease; I25.10 Atherosclerotic heart disease of native coronary artery without angina pectoris; E78.5 Hyperlipidemia, unspecified; E11.40 Type 2 diabetes mellitus with diabetic neuropathy, unspecified; Z79.4 Long term (current) use of insulin; E11.65 Type 2 diabetes mellitus with hyperglycemia; Z89.512 Acquired absence of left leg below knee; Z89.511 Acquired absence of right leg below knee; E11.51 Type 2 diabetes mellitus with diabetic peripheral angiopathy without gangrene; N25.0 Renal osteodystrophy; Z11.59 Encounter for screening for other viral diseases; E87.5 Hyperkalemia
CPT/HCPCS: 36415; 36600; 70450; 71045; 71250; 80048; 80053; 80061; 82550; 82553; 82948; 83036; 83735; 84100; 84132; 84443; 84484; 85025; 86704; 86705; 86706; 87340; 90962; 93005; 93306; 97139; 99284; G0378; J0360; J0610; J1817; J2310; J2543; J7030; J7050; J7799; U0002

== ENCOUNTER 2019-11-12 12:39 | Emergency (ER) | payer MEDICARE, OTHER ==
[~2019-11-12] VITALS: Ht 182.9 cm; Wt 80.7 kg
[~2019-11-12 12:39] MED LIST changes: +AUGMENTIN 875-1 EACH PO; +CIPRO500 MG PO; +DIALYVITE ZINC PO; +LANTUS 3ML100 UNITS/ SC; +PROTONIX40 MG/ML PO; +TYLENOL WITH C1 EACH PO; +XARELTO10 MG PO
--- NOTE | 2019-11-12 14:23 | Diagnostic Imaging Report ---
TECHNIQUE: Frontal view of the chest. INDICATION: ^ESRD NEEDS HD COMPARISON: 09/26/2019 DISCUSSION: Limited evaluation due to portable technique. Lines and hardware: Midline sternotomy changes are noted. Cervical fusion changes are noted. Right subclavian stent is stable. Right upper extremity venous stent is noted. Postsurgical changes of the left approximately are noted. Heart and mediastinum: Cardiomediastinal silhouette is mildly enlarged. Mild central vascular congestion is noted. Lungs and pleura: No focal airspace consolidation. No pleural effusion. No pneumothorax. Soft tissues and bones: No acute abnormality. IMPRESSION: 1. No acute infiltrate. 2. Mild cardiomegaly and central vascular congestion are noted which could relate to fluid overload. Signed by: Rios Montalvo MD on 11/12/2019 2:19 PM
[2019-11-12 14:30] LABS: BASOPHILS % 0.3 % (0.0-1.0); EOSINOPHILS # (AUTO) 0.5 (0.0-0.4); EOSINOPHILS % 7.7 % (0.0-6.0); HEMATOCRIT 29.5 % (38.2-49.6); HEMOGLOBIN 9.3 g/dL (14.0-18.0); LYMPHOCYTES # (AUTO) 0.6 (1.0-3.2); LYMPHOCYTES % 9.9 % (18.0-39.1); MEAN CORPUSCULAR HEMOGLOBIN 28.4 pg (28-32); MEAN CORPUSCULAR HGB CONC 31.5 g/dL (31-35); MEAN CORPUSCULAR VOLUME 90.2 fL (81-99); MONOCYTES # (AUTO) 0.6 (0.2-0.8); MONOCYTES % 9.3 % (4.4-11.3); NEUTROPHILS # (AUTO) 4.6 (2.1-6.9); NEUTROPHILS % 72.3 % (38.7-80.0); PLATELET COUNT 141 x10e3/uL (140-360); RED BLOOD COUNT 3.27 x10e6/uL (4.3-5.7); RED CELL DISTRIBUTION WIDTH 13.7 % (11.7-14.4)
[2019-11-12 14:37] LABS: PARTIAL THROMBOPLASTIN TIME 38.8 seconds (23.8-35.5)
[2019-11-12 14:42] LABS: INR 1.02; PROTHROMBIN TIME 13.9 seconds (11.9-14.5)
[2019-11-12 14:47] LABS: ALANINE AMINOTRANSFERASE < 6 IU/L (0-55); ALBUMIN 3.9 g/dL (3.5-5.0); ALBUMIN/GLOBULIN RATIO 1.1 (0.8-2.0); ALKALINE PHOSPHATASE 73 IU/L (40-150); ANION GAP 21.1 mmol/L (8-16); BLOOD UREA NITROGEN 39 mg/dL (7-26); BUN/CREATININE RATIO 5 (6-25); CALCIUM 8.7 mg/dL (8.4-10.2); CARBON DIOXIDE 26 mmol/L (22-29); CHLORIDE 98 mmol/L (98-107); CREATINE KINASE 115 IU/L (30-200); CREATININE, SERUM 8.66 mg/dL (0.72-1.25); EST GLOMERULAR FILTRATION RATE 8 ML/MIN (60-); GLUCOSE 164 mg/dL (74-118); POTASSIUM 4.1 mmol/L (3.5-5.1); SODIUM 141 mmol/L (136-145)
--- OUTSIDE RECORDS SUMMARY | 2019-11-12 14:50 | XMS REPORT | Clinical Summary ---
Author Author [facility] Organization [facility] Address Unknown Phone Unavailable Care Team Providers Care Manufacturing Operations Manager Name Role Phone Zuhair Hyatt MD PCP [...] (PRED FORTE) 1 % 9 ophthalmic suspension 11/19/2018 ofloxacin (FLOXIN) 0.3 % Administer 5 [...] Added automatically from request for muller lorenzo [id number] Combined forms of age-related cataract of right eye 06/17/2018 End stage renal disease 07/22/2016 Overview: Added automatically from request for muller rgabigail [id number] Dependence on hemodialysis 07/22/2016 Overview: Added automatically from request for muller rgabigail [id number] Essential hypertension 12/19/2015 Compression of vein 12/19/2015 End-stage renal disease 12/19/2015 Vascular device, implant, or graft complication 12/08 Dialysis complication 12/19/2015 Encounters Care Team Description Date Type Specialty Manuel Monroe NP-C Med Refill 07/18/2019 Refill Cardiology Danny Buck MD Claudication (HCC) (Primary Dx) 05/18/2019 Office Visit General Surgery 05/18/2019 Travel Sebas Hi MD bilateral femoral runoff studies [[id number] (CPT)] 05/03/2019 Surgery Procedural Cardiolo Tremayne Kam MD Arriaga, Michael, MD Shehata, Mohamed M., MD Claudication (HCC) (Primary Dx); Arterial insufficiency of lower extremity (HCC); End-stage renal disease (HCC); Dependence on hemodialysis (HCC); Essential hypertension; Type 2 diabetes mellitus with other specified complication, unspecified whether salvage determiner insulin use (HCC) 04/29/2019 [facility] dicine - Encounter 05/04/2019 Edy Lugo MD Selective coronary angiography [[id number] (C PT)] 04/22/2019 Surgery Procedural Cardiolo Al Monahan MD Joglekar, Swati, MD Patel, Minh Gilbert MD Unstable angina (HCC) (Primary Dx) 04/21/2019 [facility] dicine - Encounter 04/24/2019 Danny Buck MD [...] Neo Moya MD 01/19/2019 Lab Lab Andrew Rhodes DO Postoperative hemorrhage involving circu latory system following non-circulatory system procedure (Primary Dx) 01/05/2019 Emergency Emergency Medicine Neo Moya MD 12/18/2018 Lab Lab Nate Aj DO Acute otitis externa of left ear, unspec ified type (Primary Dx); Impacted cerumen of left ear 11/12/2018 Emergency Emergency Medicine after 11/11/2018 Family History Medical History Relation Name Comments [...] Comments Vital Sign 118/66 05/04/2019 3:39 PM RISK ASSESSMENT ANALYST Blood Pressure 65 05/04/2019 4:00 PM RISK ASSESSMENT ANALYST Pulse 36.1 C (97 F) 05/04/2019 3:39 PM RISK ASSESSMENT ANALYST Temperature 17 05/04/2019 4:36 AM RISK ASSESSMENT ANALYST Respiratory Rate 99% 05/04/2019 3:39 PM RISK ASSESSMENT ANALYST Oxygen Saturation - - Inhaled Oxygen Concentration 80 kg (176 lb 6.4 oz) 05/02/2019 11:02 AM RISK ASSESSMENT ANALYST Weight 182.9 cm (6') 04/29/2019 5:28 PM RISK ASSESSMENT ANALYST Height 23.92 04/29/2019 5:28 PM RISK ASSESSMENT ANALYST Body Mass Index Plan of Treatment Health Maintenance Due Date Last Done Comments DIABETIC RETINAL EYE EXAM 1955 DIABETIC FOOT EXAM 10/09/1967 URINE MICROALBUMIN 10/09/1967 COLONOSCOPY SCREENING 10/09/2007 SHINGLES VACCINES (#1) 10/09/2007 INFLUENZA VACCINE 12/09/2019 12/27/2015 Implants Device Identifier Shelf Expiration Date Model / Serial / L ot Implanted Type Area Manufactur er [id number] / / Stent Eluting Coronary 3.50mm X Coronary N/A: N/A GALARZA 23mm Rapid-Exchange - [id number] Stents LABOR ATORI Implanted: 04/22/2019 at [facility] (Quantity not on file) 09/04/2021 [id number] / [id number] / [id number] Lens Iol Tecnis Monofocal Zcb 21.0d Intraocula Left: Eye GALARZA - [id number] - [id number] r Lens MEDICAL Implanted: Qty: 1 on 05/07/2018 by Implant OPT Sukhdev Helton MD at [facility] 08/15/2021 [id number] / [id number] / [id number] Lens Iol Tecnis Monofocal Zcb 20.5d Intraocula Right: Eye GALARZA - [id number] - [id number] r Lens MEDICAL Implanted: Qty: 1 on 06/18/2018 by Implant OPT Sukhdev Helton MD at [facility] 01/07/2021 [id number] System Clsr Sut Meditd 6fr Perclose Surgical N/A: N/A GALARZA Proglide - [id number] Implants; VASCULAR Implanted: 04/22/[address] [facility] Expanders; DEVICES [facility] (Quantity not on file) Extenders; Surgical Wires Procedures Comments Procedure Name Priority Date/Time Associated Diag nosis POC GLUCOSE Routine 05/04/2019 2:08 PM RISK ASSESSMENT ANALYST POC GLUCOSE Routine 05/04/2019 8:49 AM RISK ASSESSMENT ANALYST SMEAR REVIEW Routine 05/04/2019 5:10 AM RISK ASSESSMENT ANALYST HC COMPLETE BLD COUNT Routine 05/04/2019 W/AUTO DIFF 5:10 AM RISK ASSESSMENT ANALYST POC GLUCOSE Routine 05/03/2019 10:28 PM RISK ASSESSMENT ANALYST POC GLUCOSE Routine 05/03/2019 6:22 PM RISK ASSESSMENT ANALYST CV AORTOGRAM ABDOMINAL Routine 05/03/2019 AORTA 5:35 PM RISK ASSESSMENT ANALYST POC PANEL Routine 05/03/2019 3:30 PM RISK ASSESSMENT ANALYST ESTIMATED GFR Routine 05/03/2019 3:30 PM RISK ASSESSMENT ANALYST POC GLUCOSE Routine 05/03/2019 8:34 AM RISK ASSESSMENT ANALYST ESTIMATED GFR Routine 05/03/2019 7:25 AM RISK ASSESSMENT ANALYST BASIC METABOLIC PANEL Routine 05/03/2019 7:25 AM RISK ASSESSMENT ANALYST HC COMPLETE BLD COUNT Routine 05/03/2019 W/AUTO DIFF 7:25 AM RISK ASSESSMENT ANALYST POC GLUCOSE Routine 05/02/2019 9:13 PM RISK ASSESSMENT ANALYST POC GLUCOSE Routine 05/02/2019 6:25 PM RISK ASSESSMENT ANALYST HEMODIALYSIS Routine 05/02/2019 5:51 PM RISK ASSESSMENT ANALYST POC GLUCOSE Routine 05/02/2019 7:21 AM RISK ASSESSMENT ANALYST ESTIMATED GFR Routine 05/02/2019 5:11 AM RISK ASSESSMENT ANALYST BASIC METABOLIC PANEL Routine 05/02/2019 5:11 AM RISK ASSESSMENT ANALYST HC COMPLETE BLD COUNT Routine 05/02/2019 W/AUTO DIFF 5:11 AM RISK ASSESSMENT ANALYST POC GLUCOSE Routine 05/01/2019 8:55 PM RISK ASSESSMENT ANALYST POC GLUCOSE Routine 05/01/2019 5:03 PM RISK ASSESSMENT ANALYST POC GLUCOSE Routine 05/01/2019 1:01 PM RISK ASSESSMENT ANALYST POC GLUCOSE Routine 05/01/2019 11:43 AM RISK ASSESSMENT ANALYST US CAROTID DUPLEX Routine 05/01/2019 BILATERAL 10:15 AM RISK ASSESSMENT ANALYST POC GLUCOSE Routine 05/01/2019 7:36 AM RISK ASSESSMENT ANALYST ESTIMATED GFR Routine 05/01/2019 4:00 AM RISK ASSESSMENT ANALYST PHOSPHORUS LEVEL Routine 05/01/2019 4:00 AM RISK ASSESSMENT ANALYST BASIC METABOLIC PANEL Routine 05/01/2019 4:00 AM RISK ASSESSMENT ANALYST POC GLUCOSE Routine 04/30/2019 10:46 PM RISK ASSESSMENT ANALYST POC GLUCOSE Routine 04/30/2019 9:11 PM RISK ASSESSMENT ANALYST POC GLUCOSE Routine 04/30/2019 5:47 PM RISK ASSESSMENT ANALYST POC GLUCOSE Routine 04/30/2019 4:36 PM RISK ASSESSMENT ANALYST HEMODIALYSIS Routine 04/30/2019 2:27 PM RISK ASSESSMENT ANALYST POC GLUCOSE Routine 04/30/2019 1:51 PM RISK ASSESSMENT ANALYST POC GLUCOSE Routine 04/30/2019 12:00 PM RISK ASSESSMENT ANALYST POC GLUCOSE Routine 04/30/2019 11:13 AM RISK ASSESSMENT ANALYST POC GLUCOSE Routine 04/30/2019 8:12 AM RISK ASSESSMENT ANALYST URIC ACID LEVEL Routine 04/30/2019 5:00 AM RISK ASSESSMENT ANALYST LACTIC ACID LEVEL, SEPSIS Routine 04/30/2019 - NOW AND REPEAT 2X EVERY 5:00 AM RISK ASSESSMENT ANALYST 3 HOURS ESTIMATED GFR Routine 04/30/2019 5:00 AM RISK ASSESSMENT ANALYST HEMOGLOBIN A1C Routine 04/30/2019 5:00 AM RISK ASSESSMENT ANALYST LIPID PANEL Routine 04/30/2019 5:00 AM RISK ASSESSMENT ANALYST BASIC METABOLIC PANEL Routine 04/30/2019 5:00 AM RISK ASSESSMENT ANALYST POC GLUCOSE Routine 04/30/2019 4:21 AM RISK ASSESSMENT ANALYST XR FOOT 3 VW BILATERAL Routine 04/30/2019 2:28 AM RISK ASSESSMENT ANALYST LACTIC ACID LEVEL, SEPSIS Timed 04/30/2019 - NOW AND REPEAT 2X EVERY 12:50 AM RISK ASSESSMENT ANALYST 3 HOURS US DUPLEX ARTERIAL LOWER STAT 04/29/2019 EXTREMITY BILATERAL 9:30 PM RISK ASSESSMENT ANALYST US ANKLE BRACHIAL INDEX STAT 04/29/2019 8:00 PM RISK ASSESSMENT ANALYST ECG 12-LEAD STAT 04/29/2019 6:14 PM RISK ASSESSMENT ANALYST ESTIMATED GFR STAT 04/29/2019 5:59 PM RISK ASSESSMENT ANALYST LACTIC ACID LEVEL, SEPSIS STAT 04/29/2019 - NOW AND REPEAT 2X EVERY 5:59 PM RISK ASSESSMENT ANALYST 3 HOURS COMPREHENSIVE METABOLIC STAT 04/29/2019 PANEL 5:59 PM RISK ASSESSMENT ANALYST TYPE AND SCREEN Routine 04/29/2019 5:59 PM RISK ASSESSMENT ANALYST PARTIAL THROMBOPLASTIN STAT 04/29/2019 TIME (PTT) 5:59 PM RISK ASSESSMENT ANALYST PROTHROMBIN TIME WITH INR STAT 04/29/2019 5:59 PM RISK ASSESSMENT ANALYST HC COMPLETE BLD COUNT STAT 04/29/2019 W/AUTO DIFF 5:59 PM RISK ASSESSMENT ANALYST ECG ED PRELIMINARY Routine 04/29/2019 INTERPRETATION 5:43 PM RISK ASSESSMENT ANALYST POC GLUCOSE Routine 04/24/2019 7:20 AM RISK ASSESSMENT ANALYST MAGNESIUM LEVEL Routine 04/24/2019 6:30 AM RISK ASSESSMENT ANALYST ESTIMATED GFR Routine 04/24/2019 6:30 AM RISK ASSESSMENT ANALYST HC COMPLETE BLD COUNT Routine 04/24/2019 W/AUTO DIFF 6:30 AM RISK ASSESSMENT ANALYST BASIC METABOLIC PANEL Routine 04/24/2019 6:30 AM RISK ASSESSMENT ANALYST POC GLUCOSE Routine 04/23/2019 9:01 PM RISK ASSESSMENT ANALYST POC GLUCOSE Routine 04/23/2019 5:48 PM RISK ASSESSMENT ANALYST POC GLUCOSE Routine 04/23/2019 4:48 PM RISK ASSESSMENT ANALYST POC GLUCOSE Routine 04/23/2019 3:46 PM RISK ASSESSMENT ANALYST POC GLUCOSE Routine 04/23/2019 11:22 AM RISK ASSESSMENT ANALYST HC COMPLETE BLD COUNT Routine 04/23/2019 W/AUTO DIFF 8:00 AM RISK ASSESSMENT ANALYST POC GLUCOSE Routine 04/23/2019 7:22 AM RISK ASSESSMENT ANALYST ECG 12-LEAD STAT 04/23/2019 5:20 AM RISK ASSESSMENT ANALYST POC GLUCOSE Routine 04/23/2019 5:10 AM RISK ASSESSMENT ANALYST TROPONIN Routine 04/23/2019 4:00 AM RISK ASSESSMENT ANALYST ESTIMATED GFR Routine 04/23/2019 4:00 AM RISK ASSESSMENT ANALYST MAGNESIUM LEVEL Routine 04/23/2019 4:00 AM RISK ASSESSMENT ANALYST BASIC METABOLIC PANEL Routine 04/23/2019 4:00 AM RISK ASSESSMENT ANALYST POC GLUCOSE Routine 04/23/2019 2:41 AM RISK ASSESSMENT ANALYST POC GLUCOSE Routine 04/22/2019 11:42 PM RISK ASSESSMENT ANALYST POC GLUCOSE Routine 04/22/2019 11:38 PM RISK ASSESSMENT ANALYST POC GLUCOSE Routine 04/22/2019 9:18 PM RISK ASSESSMENT ANALYST POC GLUCOSE Routine 04/22/2019 6:17 PM RISK ASSESSMENT ANALYST POC GLUCOSE Routine 04/22/2019 3:49 PM RISK ASSESSMENT ANALYST CV PCI Routine 04/22/2019 3:09 PM RISK ASSESSMENT ANALYST CV SELECTIVE CORONARY Routine 04/22/2019 ANGIOGRAPHY 3:09 PM RISK ASSESSMENT ANALYST ACTIVATED CLOTTING TIME Routine 04/22/2019 2:42 PM RISK ASSESSMENT ANALYST POC GLUCOSE Routine 04/22/2019 12:25 PM RISK ASSESSMENT ANALYST HEMODIALYSIS Routine 04/22/2019 12:20 PM RISK ASSESSMENT ANALYST POC GLUCOSE Routine 04/22/2019 11:33 AM RISK ASSESSMENT ANALYST POC GLUCOSE Routine 04/22/2019 9:18 AM RISK ASSESSMENT ANALYST POC GLUCOSE Routine 04/22/2019 6:41 AM RISK ASSESSMENT ANALYST ANTI XA, UNFRACTIONATED Routine 04/22/2019 6:40 AM RISK ASSESSMENT ANALYST POC GLUCOSE Routine 04/22/2019 6:19 AM RISK ASSESSMENT ANALYST POC GLUCOSE Routine 04/22/2019 5:05 AM RISK ASSESSMENT ANALYST POC GLUCOSE Routine 04/22/2019 2:15 AM RISK ASSESSMENT ANALYST ESTIMATED GFR Routine 04/22/2019 12:00 AM RISK ASSESSMENT ANALYST ANTI XA, UNFRACTIONATED Routine 04/22/2019 12:00 AM RISK ASSESSMENT ANALYST TROPONIN Routine 04/22/2019 12:00 AM RISK ASSESSMENT ANALYST COMPREHENSIVE METABOLIC Routine 04/22/2019 PANEL 12:00 AM RISK ASSESSMENT ANALYST HC COMPLETE BLD COUNT Routine 04/22/2019 W/AUTO DIFF 12:00 AM RISK ASSESSMENT ANALYST POC GLUCOSE Routine 04/21/2019 9:10 PM RISK ASSESSMENT ANALYST TROPONIN Timed 04/21/2019 4:00 PM RISK ASSESSMENT ANALYST ANTI XA, UNFRACTIONATED STAT 04/21/2019 4:00 PM RISK ASSESSMENT ANALYST PARTIAL THROMBOPLASTIN STAT 04/21/2019 TIME (PTT) 4:00 PM RISK ASSESSMENT ANALYST PROTHROMBIN TIME WITH INR STAT 04/21/2019 4:00 PM RISK ASSESSMENT ANALYST HEPATITIS B SURFACE Routine 04/21/2019 ANTIGEN 1:35 PM RISK ASSESSMENT ANALYST POC GLUCOSE Routine 04/21/2019 12:47 PM RISK ASSESSMENT ANALYST ECG 12-LEAD STAT 04/21/2019 12:32 PM RISK ASSESSMENT ANALYST TROPONIN Timed 04/21/2019 12:31 PM RISK ASSESSMENT ANALYST TTE COMPLETE, WO Routine 04/21/2019 CONTRAST, W DOPPLER 10:35 AM RISK ASSESSMENT ANALYST ([id number]) TROPONIN Timed 04/21/2019 9:12 AM RISK ASSESSMENT ANALYST POC GLUCOSE Routine 04/21/2019 8:09 AM RISK ASSESSMENT ANALYST HEMODIALYSIS Routine 04/21/2019 7:33 AM RISK ASSESSMENT ANALYST POC GLUCOSE Routine 04/21/2019 6:43 AM RISK ASSESSMENT ANALYST POC GLUCOSE Routine 04/21/2019 5:22 AM RISK ASSESSMENT ANALYST TROPONIN Timed 04/21/2019 5:20 AM RISK ASSESSMENT ANALYST POC GLUCOSE Routine 04/21/2019 4:50 AM RISK ASSESSMENT ANALYST ECG ED PRELIMINARY Routine 04/21/2019 INTERPRETATION 3:23 AM RISK ASSESSMENT ANALYST XR CHEST 1 VW PORTABLE STAT 04/21/2019 3:04 AM RISK ASSESSMENT ANALYST ESTIMATED GFR STAT 04/21/2019 2:28 AM RISK ASSESSMENT ANALYST B NATRIURETIC PEPTIDE STAT 04/21/2019 2:28 AM RISK ASSESSMENT ANALYST TROPONIN STAT 04/21/2019 2:28 AM RISK ASSESSMENT ANALYST COMPREHENSIVE METABOLIC STAT 04/21/2019 PANEL 2:28 AM RISK ASSESSMENT ANALYST HC COMPLETE BLD COUNT STAT 04/21/2019 W/AUTO DIFF 2:28 AM RISK ASSESSMENT ANALYST ECG 12-LEAD STAT 04/21/2019 12:34 AM RISK ASSESSMENT A[address]ST [address] ANGIOGRAM ABDOMINAL Routine 04/20/2019 Nidhi courtney of vein AORTA AND BILATERAL 9:54 AM RISK ASSESSMENT ANALYST 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 POC glucose 294 (H) 65 - 99 mg/dL [facility] Comment: RASTAFARI Election Judge Name: [facility] Device ID: [id number] Chartable: [facility] Notified RN Specimen Performing Organization Address City/State/Zipcode Ph one Number [facility] DEPARTMENT OF [address] [place] [address] PATHOLOGY AND GENOMIC MEDICINE [address] * Smear review (05/04/2019 5:10 AM RISK ASSESSMENT ANALYST) Pathologist [facility] Platelet slide Gary adequate [facility] Anisocytosis Moderate [facility] Polychromasia Moderate [facility] Ovalocytes Moderate [facility] Enlarged Moderate (A) [facility] Giant platelets Occasional [facility] Specimen Performing Organization Address [facility] Ph one Number [facility] DEPARTMENT OF [address] [place] [address] PATHOLOGY AND GENOMIC MEDICINE [address] * CBC with platelet and differential (05/04/2019 5:10 AM RISK ASSESSMENT ANALYST) Only the most recent of 8 results within the time period is included. WBC 7.48 4.50 - 11.00 k/uL [facility] RBC 3.07 (L) 4.40 - 6.00 m/uL [facility] HGB 9.0 (L) 14.0 - 18.0 g/dL [facility] HCT 29.1 (L) 41.0 - 51.0 % [facility] MCV 94.8 82.0 - 100.0 fL [facility] MCH 29.3 27.0 - 34.0 pg [facility] MCHC 30.9 (L) 31.0 - 37.0 g/dL [facility] RDW - SD 47.1 37.0 - 55.0 fL [facility] MPV 11.7 8.8 - 13.2 fL [facility] Platelet count 172 150 - 400 k/uL [facility] Nucleated RBC 0.00 /100 WBC [facility] Neutrophils 73.8 (H) 39.0 - 69.0 % [facility] Lymphocytes 11.8 (L) 25.0 - 45.0 % [facility] Monocytes 9.0 0.0 - 10.0 % [facility] Eosinophils 4.4 0.0 - 5.0 % [facility] Basophils 0.5 0.0 - 1.0 % [facility] Immature 0.5Comment: "Immature 0.0 - 1.0 % [facility] granulocytes granulocytes" (promyelocytes, METHOD IST myelocytes, metamyelocytes) HOSPITAL Specimen Blood Performing Organization Address City/State/Zipcode Ph one Number [facility] DEPARTMENT OF [address] [place] [address] PATHOLOGY AND GENOMIC MEDICINE [address] * Cv invasive peripheral vascular procedure (05/03/2019 5:35 PM RISK ASSESSMENT ANALYST) Specimen Narrative Performed At [facility]: None. PREOPERATIVE DIAGNOSES: 1. Occlusion and/or stenosis [...] standard 18- gauge AMC needle. A short 5-Belarusian arterial sheath was utilized for access . Next, using a 4-Belarusian Contra catheter and a 0.035 Paul exchange wire, the r ight iliac artery [...] his ongoing pain, he will likely require osiln-dcb-gpss amputation as there is s ufficient flow to facilitate wound healing. I have already communicated this to the patient's attending supervisor slashing department, Dr. Angel Lugo. Performing Organization Address [facility] [address] [place] [address] * Estimated GFR (05/03/2019 3:30 PM RISK ASSESSMENT ANALYST) Only the most recent of 10 results within the time period is included. Pathologist [facility] Estimated GFR 10 (A) mL/min/1.73 m2 [facility] [place] Comment: RASTAFARI [facility] Interpretation G1 >=90 Normal or high [...] in 2014. Specimen Blood Performing Organization Address [facility] one Number [facility] DEPARTMENT OF [address] [place] [address] PATHOLOGY AND GENOMIC MEDICINE [address] * POC panel (05/03/2019 3:30 PM RISK ASSESSMENT ANALYST) [facility] POC sodium 138 135 - 148 mmol/L [facility] POC potassium 4.1 3.5 - 5.0 mmol/L [facility] POC chloride 96 (L) 99 - 109 mmol/L [facility] POC CO2 31 24 - 31 mmol/L [facility] POC glucose 182 (H) 65 - 99 mg/dL [facility] POC BUN 21 8 - 24 mg/dL [facility] POC creatinine 6.5 (H) 0.7 - 1.2 mg/dl [facility] POC hematocrit 31 (L) 41 - 51 % [facility] POC anion gap 16 8 - 20 mmol/L [facility] [place] Comment: RASTAFARI Election Judge Name: [facility] Sandi Kelly Device ID: [id number] Specimen Performing Organization Address [facility] one Number [facility] DEPARTMENT OF [address] [place] [address] PATHOLOGY AND GENOMIC MEDICINE [address] * Basic metabolic panel (05/03/2019 7:25 AM RISK ASSESSMENT ANALYST) Only the most recent of 6 results within the time period is included. Sodium 138 135 - 148 mEq/L [facility] Potassium 5.1 (H) 3.5 - 5.0 mEq/L [facility] Chloride 96 (L) 98 - 112 mEq/L [facility] CO2 23 (L) 24 - 31 mEq/L [facility] Anion gap 19@ANIO (H) 7 - 15 mEq/L [facility] BUN 53 (H) 8 - 23 mg/dL [facility] Creatinine 11.08 (H) 0.70 - 1.20 mg/dL [facility] Glucose 228 (H) 65 - 99 mg/dL [facility] Calcium 8.4 (L) 8.8 - 10.2 mg/dL [facility] Specimen Plasma specimen Performing Organization Address [facility] Ph one Number [facility] DEPARTMENT OF [address] [place] [address] PATHOLOGY AND GENOMIC MEDICINE [address] * Us carotid duplex (05/01/2019 10:15 AM RISK ASSESSMENT ANALYST) Specimen Narrative Performed At [facility] U ltrasound Laboratory Carotid A rtery Duplex Report [id number] [facility] [address] [address] For quality assurance lead purposes, the cat egorization of the degree of the stenosis of this exam is based on criteria descr ibed in the IAC carotid stenosis grading white paper( www.intersocietal.org/Vasc ular) and Azam, Tami.Jayne., Bautista, C.B., et al. Carotid artery stenosis: christensen-scale and Doppler US diagnosis--Society of Radiologists in Ultrasound Consensus Conference. Radiol ogy. 2003 Jan; 229(2):340-6. Pat.Name: DUONG HERNANDEZ Pat.ID: [id number] .Date: 05/01/2019 Refer.MD: ANGEL LUGO MD Exam Time: 9:25:00 AM Study Type:Carotid Height: 72in Weight: 186lb BSA: 2.07 m2 Age: 8 1955,63Y Sex: MALE Sonogrphr: MEENAKSHI Sales. Stat.:Inpatient Room: [address] Tape Vol: [place], CPT - 4: 15638 Echo Event ID:[id number] Order ID: [id number] Reason for Study:Evaluate for possible carotid artery [...] 1. <50% stenosis of the bulb and internal control specialist al carotis artery, bilaterally. 2. <50% stenosis [...] Radiology Results In - 05/01/2019 4:30 PM [facility] Vascular Ultrasound Laboratory Carotid Artery Duplex Report [id number] [address], [place] [address] For quality assurance lead purposes, the categorization of the degree of the stenosis of this exam is based on criteria described in the IAC carotid stenosis grading white paper( www.intersocietal.org/Vascular) and Kimberly Nascimento., Angelia Baum., et al. Carotid artery stenosis: christensen-scale and Doppler US diagnosis--Society of Radiologists in Ultrasound Consensus Conference. Radiology. 2003 Nov; 229(2):340-6. Pat.Name: DUONG HERNANDEZ Pat.ID: [id number] .Date: 05/01/2019 Refer.MD: ANGEL LUGO MD Exam Time: 9:25:00 AM Study Type:Carotid Height: 72in Weight: 186lb BSA: 2.07 m2 Age: 8 1955,63Y Sex: MALE Sonogrphr: MEENAKSHI Sales. Stat.:Inpatient Room: [address] Vol: RF, CPT - 4: 25922 Echo Event ID:[id number] Order ID: [id number] Reason for Study:Evaluate for possible carotid artery [...] 05/01/2019 04:30 PM J Carlos Riddle MD, VI Performing Organization Address [facility] [address] [place] [address] * Phosphorus level (05/01/2019 4:00 AM RISK ASSESSMENT ANALYST) Phosphorus 3.8 2.4 - 4.5 mg/dL [facility] Specimen Plasma specimen Performing Organization Address City/[facility] one Number [facility] DEPARTMENT OF [address] [place] [address] PATHOLOGY AND GENOMIC MEDICINE [address] * Lactic acid level, SEPSIS - Now and repeat 2x every 3 hours (04/30/2019 5:00 AM RISK ASSESSMENT ANALYST) Only the most recent of 3 results within the time period is included. Lactic acid 2.1 0.5 - 2.2 mmol/L [facility] Specimen Plasma specimen Performing Organization Address [facility] Number [facility] DEPARTMENT OF [address] [place] [address] PATHOLOGY AND GENOMIC MEDICINE [address] * Uric acid level (04/30/2019 5:00 AM RISK ASSESSMENT ANALYST) Uric acid 4.5 3.4 - 7.0 mg/dL [facility] Specimen Plasma specimen Performing Organization Address [facility] [address] [facility] DEPARTMENT OF [address] [place] [address] PATHOLOGY AND GENOMIC MEDICINE [address] * Hemoglobin A1c (04/30/2019 5:00 AM RISK ASSESSMENT ANALYST) Hemoglobin A1C 8.4 (H) 4.0 - 5.6 % [facility] Comment: [facility] HbA1c cutoffs for diagnosing HOSPITAL diabetes: 4.0% - 5.6% = normal 5.7% - 6.4% = increased risk for diabetes (prediabetes)9 >=6.5% = diabetes9 Goals for glycemic control (ADA 2016) < 7.0% Target for non adults with diabetes. More or less stringent targets may be appropriate for individual patients. <7.5% Target for Children and adolescents with type 1 diabetes. Specimen Blood Performing Organization Address [facility] Ph one Number [facility] DEPARTMENT OF [address] [place] [address] PATHOLOGY AND GENOMIC MEDICINE [address] * Lipid panel (04/30/2019 5:00 AM RISK ASSESSMENT ANALYST) Cholesterol 154 <200 mg/dL [facility] Triglycerides 130 <150 mg/dL [facility] HDL cholesterol 40 >40 mg/dL [facility] LDL cholesterol 91Comment: Result obtained by <100 mg/dL [facility] direct LDL measurement [facility] Lipid panel [facility] interpretation Comment: RASTAFARI Total Cholesterol (mg/dL) [facility] <200 Desirable 200-239 Borderline-high >=240 [...] mg/dL) Specimen Plasma specimen Performing Organization Address [facility] Ph one Number [facility] DEPARTMENT OF [address] [place] [address] PATHOLOGY AND GENOMIC MEDICINE [address] * XR Foot 3 Vw Bilateral (04/30/2019 2:28 AM RISK ASSESSMENT ANALYST) Specimen Narrative Performed At EXAMINATION: XR FOOT 3 VW BILATERAL [facility] CLINICAL HISTORY: 63 years Male Os teomyelitis suspected foot swelling diabetic COMPARISON: None available at this ti nd. IMPRESSION: Patient has undergone partial indentati on of the left first phalanx. No evidence of osteomyelitis in either foot. No evidence of fracture or dislocation bilaterally The bones are demineralized bilaterally Joint space narrowing in the first thro ugh fifth tarsometatarsal joints bilaterally No suspicious focal blastic or lytic le sions No radiopaque foreign bodies are presen t. [id number] Procedure Note Hm Interface, Radiology Results Incoming - 04/30/2019 7:29 AM RISK ASSESSMENT ANALYST EXAMINATION: XR FOOT 3 VW BILATERAL CLINICAL [...] lesions No radiopaque foreign bodies are present. [id number] Performing Organization Address City/State/Zipcode Ph one Number [facility] [address] [place] [address] * duplex arterial lower extremity (04/29/2019 9:30 PM RISK ASSESSMENT ANALYST) Specimen Narrative Performed At [facility] ltrasound Laboratory Lower Extremity Arterial Duplex Report [address] [facility], [facility] [address], [place] [address] Pat.Name: DUONG HERNANDEZ Linda.ID: [id number] .Date: 04/29/2019 Refer.MD: TREMAYNE CALLE MD Exam Time: 7:34:00 PM Study Type:LE Arterial Height: 72in BSA: 2.01 m2 Age: 8 1955,63Y Sex: MALE Sonogrphr: CHELSEA Castellon Pat . Stat.:Inpatient Room: ED34 Tape Vol: VM, CPT - 4: 42595 Echo Event ID:[id number] Order ID: [id number] Reason for Study:Leg pain and discolora tion [...] disturbed colorflow in the profunda artery, proximal supervisor inspection ior artery, mid anterior tibial, and distal [...] PHYSICIAN INTERPRETATION: Arterial duplex examination of bilate ral lower extremities demonstrates bilateral multi-level jaxson rial occlusive disease. FINDINGS: MEASUREMENTS: DOPPLER Right DIGGING MACHINE OPERATOR prox DIGGING MACHINE OPERATOR prox PSV 113 cm/s Right SFA Mid [...] Prox Peroneal Prox P 19 cm/s Right BINDING CUTTER Mid BINDING CUTTER Mid PSV 82.8 cm/s Tibial Post Right Tibial Po 60 deg Right Tibial Po 60 deg Right BINDING CUTTER Prox BINDING CUTTER Prox PSV 166 cm/s BINDING CUTTER Prox PSV 80 cm/s Left DIGGING MACHINE OPERATOR Dist DIGGING MACHINE OPERATOR Dist PSV 58.7 cm/s Left SFA Dist [...] cm/s VERONICA Prox PSV 142 cm/s Right DIGGING MACHINE OPERATOR Dist DIGGING MACHINE OPERATOR Dist PSV 114 cm/s Right Profunda Profunda PSV 104 cm/s Right SFA Dist SFA Dist PSV 97 cm/s Right BINDING CUTTER Prox 1 BINDING CUTTER Prox 1 PSV 151 cm/s Right BINDING CUTTER Prox 2 BINDING CUTTER Prox 2 PSV 166 cm/s Right BINDING CUTTER Mid 2 BINDING CUTTER Mid 2 PSV 79 cm/s Right BINDING CUTTER Distal BINDING CUTTER Distal PSV 233 cm/s Right VERONICA Prox VERONICA Prox PSV 79 cm/s Right VERONICA Mid VERONICA Mid PSV 103 cm/s Right VERONICA Dist 1 VERONICA Dist 1 PSV 77 cm/s Left Profunda Profunda PSV 122 cm/s Left Profunda 1 Profunda 1 PSV 142 cm/s Left Pop Dist Pop Dist PSV 69 cm/s Left Pop Dist 1 Pop Dist 1 PSV 61 cm/s Left BINDING CUTTER Prox BINDING CUTTER Prox PSV 189 cm/s Left BINDING CUTTER Mid BINDING CUTTER Mid PSV 34 cm/s Left BINDING CUTTER Distal BINDING CUTTER Distal PSV 15 cm/s Left VERONICA Mid [...] Radiology Results In - 04/29/2019 11:37 PM [facility] Vascular Ultrasound Laboratory Lower Extremity Arterial Duplex Report [address] [place] [address] Pat.Name: DUONG HERNANDEZ Pat.ID: [id number] .Date: 04/29/2019 Refer.MD: TREMAYNE CALLE MD Exam Time: 7:34:00 PM Study Type:LE Arterial Height: 72in BSA: 2.01 m2 Age: 8 1955,63Y Sex: MALE Sonogrphr: CHELSEA Castellon Pat. Stat.:Inpatient Room: ED34 Tape Vol: VM, CPT - 4: 91049 Echo Event ID:[id number] Order ID: [id number] Reason for Study:Leg pain and discoloration bilateraly. [...] arterial occlusive disease. FINDINGS: MEASUREMENTS: DOPPLER Right DIGGING MACHINE OPERATOR prox DIGGING MACHINE OPERATOR prox PSV 113 cm/s Right SFA Mid [...] Prox Peroneal Prox P 19 cm/s Right BINDING CUTTER Mid BINDING CUTTER Mid PSV 82.8 cm/s Tibial Post Right Tibial Po 60 deg Right Tibial Po 60 deg Right BINDING CUTTER Prox BINDING CUTTER Prox PSV 166 cm/s BINDING CUTTER Prox PSV 80 cm/s Left DIGGING MACHINE OPERATOR Dist DIGGING MACHINE OPERATOR Dist PSV 58.7 cm/s Left SFA Dist [...] cm/s VERONICA Prox PSV 142 cm/s Right DIGGING MACHINE OPERATOR Dist DIGGING MACHINE OPERATOR Dist PSV 114 cm/s Right Profunda Profunda PSV 104 cm/s Right SFA Dist SFA Dist PSV 97 cm/s Right BINDING CUTTER Prox 1 BINDING CUTTER Prox 1 PSV 151 cm/s Right BINDING CUTTER Prox 2 BINDING CUTTER Prox 2 PSV 166 cm/s Right BINDING CUTTER Mid 2 BINDING CUTTER Mid 2 PSV 79 cm/s Right BINDING CUTTER Distal BINDING CUTTER Distal PSV 233 cm/s Right VERONICA Prox VERONICA Prox PSV 79 cm/s Right VERONICA Mid VERONICA Mid PSV 103 cm/s Right VERONICA Dist 1 VERONICA Dist 1 PSV 77 cm/s Left Profunda Profunda PSV 122 cm/s Left Profunda 1 Profunda 1 PSV 142 cm/s Left Pop Dist Pop Dist PSV 69 cm/s Left Pop Dist 1 Pop Dist 1 PSV 61 cm/s Left BINDING CUTTER Prox BINDING CUTTER Prox PSV 189 cm/s Left BINDING CUTTER Mid BINDING CUTTER Mid PSV 34 cm/s Left BINDING CUTTER Distal BINDING CUTTER Distal PSV 15 cm/s Left VERONICA Mid [...] Carlos Riddle MD, RPVI Performing Organization Address City/State/[facility] Ph one Number [facility] [address] [place] [address] * Us ankle brachial index (04/29/2019 8:00 PM RISK ASSESSMENT ANALYST) Specimen Narrative Performed At [facility] Vascular D iagnostic Laboratory Physiologi c Arterial Leg Report [address] [place] [address] Pat.Name: DUONG HERNANDEZ Pat.ID: [id number] .Date: 04/29/2019 Refer.MD: TREMAYNE CALLE MD Exam Time: 7:13:00 PM Study Type:Physiologic Leg H eight: 72in Weight: 175lb BSA: 2.01 m2 Age: 8 1955,63Y Sex: MALE Sonogrphr: CHELSEA Castellon, Cindy Abdalla RVT Pat. Stat.:Inpatient Room: ED34 Tape Vol: TIM, CPT - 4: 47867 Echo Event ID:[id number] Order ID: [id number] Reason for Study:Leg pain and discolora tion [...] in the right fall s into the mkqvquzr-ju-yosshd category. 4. Toe/brachial index in the left [...] in the right fall s into the zrffyhoo-ht-puvdua category. 4. 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 FINDINGS: Signed 04/29/2019 11:20 PM J Carlos Riddle MD, RPVI Procedure Note Interface, Radiology Results In - 04/29/2019 11:20 PM [facility] Vascular Diagnostic Laboratory Physiologic Arterial Leg Report [address] [facility], [facility] [address], [place] [address] Pat.Name: DUONG HERNANDEZ Pat.ID: [id number] .Date: 04/29/2019 Refer.MD: TREMAYNE CALLE MD Exam Time: 7:13:00 PM Study Type:Physiologic Leg Height: 72in Weight: 175lb BSA: 2.01 m2 Age: 8 1955,63Y Sex: MALE Sonogrphr: CHELSEA Csatellon, Cindy Abdalla RVT Pat. Stat.:Inpatient Room: ED34 Tape Vol: , CPT - 4: 17944 Echo Event ID:[id number] Order ID: [id number] Reason for Study:Leg pain and discoloration bilateraly. [...] index in the right falls into the cremthcc-mm-qeezwn category. 4. Toe/brachial index in the left [...] index in the right falls into the ootjadne-db-mukwoj category. 4. Toe/brachial index in the left was un able to be obtained due to amputation. FINDINGS: Signed 04/29/2019 11:20 PM J Carlos Riddle MD, RPVI Performing Organization Address City/[facility] one Number [facility] [address] [place] [address] * ECG 12 lead (04/29/2019 6:14 PM RISK ASSESSMENT ANALYST) Only the most recent of 4 results within the time period is included. Ventricular 66 [facility] rate Atrial rate 66 [facility] AL interval 184 [facility] QRSD interval 142 [facility] QT interval 488 [facility] QTC interval 511 [facility] P axis 1 73 [facility] QRS axis 1 -43 [facility] T wave axis -12 [facility] EKG impression Normal sinus rhythm-Possible [facility] Left atrial enlargement-Left axis deviation-Right bundle branch block-Septal infarct , age undetermined-Abnormal ECG-In automated comparison with ECG of 23-APR-2019 05:20,-Septal infarct is now present-Inverted T waves have replaced nonspecific T wave abnormality in Anterior leads- Specimen Narrative Performed At This result has an attachment that is n ot available. Performing Organization Address City/[facility] one Number [facility] MUSE [address] [place] [address] * Partial thromboplastin time, activated (04/29/2019 5:59 PM RISK ASSESSMENT ANALYST) Only the most recent of 2 results within the time period is included. Pathologist [facility] PTT 38.4 (H) 23.0 - 36.0 sec [facility] Comment: RASTAFARI PTT therapeutic range for HOSPITAL unfractionated heparin is 61.0-112.0 seconds which corresponds to Anti-Xa 0.3-0.7 U/ml. Specimen Blood Performing Organization Address [facility] one Number [facility] DEPARTMENT OF [address] [place] [address] [facility] AND [facility] [address] * Prothrombin time with INR (04/29/2019 5:59 PM RISK ASSESSMENT ANALYST) Only the most recent of 2 results within the time period is included. [facility] Prothrombin 14.3 11.5 - 14.[address] [facility] INR 1.1 [facility] Comment: RASTAFARI The International Normalized HOSPITAL Ratio (INR) is a therapeutic monitoring tool for patients who are stable on oral anticoagulant therapy. An INR of 2.0-3.0 is suggested for deep vein thrombosis/pulmonary embolism. Specimen Blood Performing Organization Address [facility] one Number [facility] DEPARTMENT OF [address] [place] [address] PATHOLOGY AND GENOMIC MEDICINE [address] * Type and screen (04/29/2019 5:59 PM RISK ASSESSMENT ANALYST) Pathologist [facility] ABO grouping A [facility] Rh type POS [facility] Antibody screen NEG [facility] (gel) [facility] Specimen Blood Performing Organization Address City/[facility] one Number [facility] DEPARTMENT OF [address] [place] [address] PATHOLOGY AND GENOMIC MEDICINE [address] * Comprehensive metabolic panel (04/29/2019 5:59 PM RISK ASSESSMENT ANALYST) Only the most recent of 3 results within the time period is included. Pathologist [facility] Sodium 142 135 - 148 mEq/L [facility] Potassium 4.8 3.5 - 5.0 mEq/L [facility] Chloride 93 (L) 98 - 112 mEq/L [facility] CO2 30 24 - 31 mEq/L [facility] Anion gap 19@ANIO (H) 7 - 15 mEq/L [facility] BUN 45 (H) 8 - 23 mg/dL [facility] Creatinine 9.78 (H) 0.70 - 1.20 mg/dL [facility] Glucose 285 (H) 65 - 99 mg/dL [facility] Calcium 7.8 (L) 8.8 - 10.2 mg/dL [facility] Protein 7.7 6.3 - 8.3 g/dL [facility] Comment: RASTAFARI Ifehksd8036.6-7.0 g/dL HOSPITAL 1 xhgj5629.4-7.6 g/dL 7 months-4ybpm922.1-7.3 g/dL 1-2 zahyx186.6-7.5 g/dL >3 vsoeh973.0-8.0 g/dL 18-1207151.3-8.3 g/dL Albumin 3.4 (L) 3.5 - 5.0 g/dL [facility] A/G ratio 0.8 0.7 - 3.8 [facility] Alkaline 128 40 - 129 U/L [facility] phosphatase [facility] AST 19 10 - 50 U/L [facility] ALT 8 5 - 50 U/L [facility] Total bilirubin 0.5 0.0 - 1.2 mg/dL [facility] Specimen Plasma specimen Performing Organization Address City/State/Zipcode Ph one Number [facility] DEPARTMENT OF [address] [place] [address] PATHOLOGY AND GENOMIC MEDICINE [address] * ECG ED Preliminary Interpretation - Not an Order (04/29/2019 5:43 PM RISK ASSESSMENT ANALYST) Only the most recent of 2 results within the time period is included. Narrative Performed At Tremayne Calle MD 05/04/2019 5:28 PM ECG ED Preliminary Interpretation - Not an Order Performed by: Tremayne Calle MD Authorized by: Tremayne Calle MD ECG reviewed by ED Physician in the abs ence of a supervisor slashing department: yes Interpretation: Interpretation: abnormal Rate: ECG rate: 66 ECG rate assessment: normal Rhythm: Rhythm: sinus rhythm Ectopy: Ectopy: none QRS: QRS axis: Left QRS intervals: Normal Conduction: Conduction: abnormal Abnormal conduction: complete RBBB ST segments: ST segments: Normal T waves: T waves: inverted Inverted: V2 Other findings: Other findings: LAE * Magnesium level (04/24/2019 6:30 AM RISK ASSESSMENT ANALYST) Only the most recent of 2 results within the time period is included. Magnesium 2.0 1.6 - 2.4 mg/dL [facility] Specimen Plasma specimen Performing Organization Address City/[facility] Ph one Number [facility] DEPARTMENT OF [address] [place] [address] PATHOLOGY AND GENOMIC MEDICINE [facility] [address] [place] [address] HOSPITAL * Troponin (04/23/2019 4:00 AM RISK ASSESSMENT ANALYST) Only the most recent of 7 results within the time period is included. Troponin 0.662 (H) 0.000 - 0.040 ng/mL [facility] Comment: RASTAFARI In patients suspected of HOSPITAL having a [...] Performing Organization Address City/State/Zipcode Ph one Number [facility] DEPARTMENT OF [address] [place] [address] PATHOLOGY AND GENOMIC MEDICINE [facility] RASTAFARI [address] [place] [address] HOSPITAL * floating labor gang supervisor procedure (04/22/2019 3:09 PM RISK ASSESSMENT ANALYST) Specimen Addenda Addendum by Edy Lugo MD on 04/26/2019 5:10 PM Moderate conscious sedation was administered from 14:24 ( time) with physician monitoring of patient consciousness, O2 saturation, BP, HR for a total duration of [address] Lugo was present and scrubbed in for entire duration of case. PROCEDURES PERFORMED Selective coronary angiography PCI of LAD DRUM SAW OPERATOR Edy Lugo MD FELLOW Cath fellow- Marie [...] was pre-dilated with a 3.25 x 10mm [place] cutting balloon at 8 elodia and stented [...] Transferred in stable condition Narrative Performed At [facility] Moderate conscious sedation was adminis tered from 14:24 ( time) with physician monitoring of patient co nsciousness, O2 saturation, BP, HR for a total duration of [address] Lugo was present and scrubbed in for entire duration of case. PROCEDURES PERFORMED Selective coronary angiography PCI of LAD DRUM SAW OPERATOR Edy Lugo MD FELLOW Cath fellow- Marie [...] DETAILS After obtaining informed consent, the p aturvashi was brought to the cardiac catheterization suite. [...] was pre-dilated with a 3.25 x 10mm [place] cutting balloon at 8 elodia and stented [...] Transferred in stable condition Performing Organization Address [facility] one Number [facility] [address] [place] [address] * Activated clotting time (04/22/2019 2:42 PM RISK ASSESSMENT ANALYST) [facility] Activated 436 (H) 96 - 152 sec [facility] clotting time Comment: RASTAFARI Election Judge Name: [facility] Device ID: [id number] Specimen Performing Organization Address [facility] one Number [facility] DEPARTMENT OF [address] [place] [address] PATH[facility] AND [facility] [address] * Anti Xa, unfractionated (04/22/2019 6:40 AM RISK ASSESSMENT ANALYST) Only the most recent of 3 results within the time period is included. [facility] Anti Xa, 0.29 (L)Comment: Therapeutic 0.30 - 0.70 U/mL [facility] unfractionated Range: 0.30 - 0.70 U/mL [facility] Specimen Blood Performing Organization [facility] one Number [facility] DEPARTMENT OF [address] [place] [address] PATH[facility] AND [facility] [address] * Hepatitis B surface antigen (04/21/2019 1:35 PM RISK ASSESSMENT ANALYST) [facility] Hepatitis B Non-reactive Non-reactive [facility] surface Ag [facility] Specimen Blood Performing Organization Address [facility] one [facility] DEPARTMENT OF [address] [place] [address] PATH[facility] AND [facility] [address] * Echocardiogram complete w contrast and 3D if needed (04/21/2019 10:35 AM RISK ASSESSMENT ANALYST) Specimen Narrative Performed At [facility] Echo cardiography Report [address] [place] [address] [address] [address] Pat.Name: DUONG HRENANDEZ Pat.ID: [id number] .Date: 04/21/2019 Refer.MD: MINH BOBBY MD Exam Time: 9:40:00 AM Study Type:Routine Echo Height: 72in Weight: 184lb BSA: 2.06 m2 Age: 8 1955,63Y Sex: MALE BP: 141/79 HR: 58 bpm Sonogrphr: Loly Kennedy RDCS Pat. Stat.:Inpatient Room: ED25 Study Status:Final Echo Event ID:[id number] Order ID: [id number] Reason for Study:Type II SD History / Clinical:Diabetes, Hypertensi on, Peripheral Vascular [...] PA systolic pressure. MEASUREMENTS: 2D Parasternal Long [place] Ao An 2.4 cm LVPWd 1.1 cm [...] Radiology Results In - 04/21/2019 4:31 PM RISK ASSESSMENT ANALYST Echocardiography Report [address] [facility], [facility] 9, [place] [id number] [facility].Name: DUONG HERNANDEZPrafulID: [id number] .Date: 04/21/2019 Refer.MD: MINH BOBBY MD Exam Time: 9:40:00 AM Study Type:Routine Echo Height: 72in Weight: 184lb BSA: 2.06 m2 Age: 8 1955,63Y Sex: MALE BP: 141/79 HR: 58 bpm Sonogrphr: Loly Kennedy RDCS Pat. Stat.:Inpatient Room: ED25 Study Status:Final Echo Event ID:[id number] Order ID: [id number] Reason for Study:Type II SD History / Clinical:Diabetes, Hypertension, Peripheral Vascular Disease, [...] PA systolic pressure. MEASUREMENTS: 2D Parasternal Long [place] Ao An 2.4 cm LVPWd 1.1 cm [...] PM Jim Liang M.D. Performing Organization Address City/[facility] Ph one Number [facility] [address] [place] [address] * XR Chest 1 Vw Portable (04/21/2019 3:04 AM RISK ASSESSMENT ANALYST) Specimen Narrative Performed At Examination: XR CHEST [...] atelectasis. Otherwise no acute infiltrate identifie d. [facility]-[id number] Procedure Note Interface, Radiology Results Incoming - 04/21/2019 3:09 AM RISK ASSESSMENT ANALYST Examination: XR CHEST 1 VW PORTABLE Clinical [...] minimal atelectasis. Otherwise no acute infiltrate identified. [facility]-[id number] Performing Organization Address City/[facility] Ph one Number [facility] [address] [place] [address] * B natriuretic peptide (04/21/2019 2:28 AM RISK ASSESSMENT ANALYST) BNP 1,151 (H) 0 - 100 pg/mL [facility] Specimen Blood Narrative Performed At ___GLU_ results called to and read back by _SUZY CRANDALL\\ ROBINA(name/location) [facility] DEPARTMENT OF at __ 04/21/2019 03:48 (date/time) by __SLIMEB. PATHOLOGY AND GENOMIC MEDICINE Performing Organization Address [facility] Ph one Number [facility] DEPARTMENT OF [address] [place] [address] PATHOLOGY [place] [address] HOSPITAL * CTA Abdominal Aorta And Bilateral Iliofemoral Runoff W Wo Contrast (04/20/2019 9:54 AM RISK ASSESSMENT ANALYST) Specimen Narrative Performed At EXAMINATION: CT ANGIOGRAM [...] also present throughout th e peroneal artery. [facility]-[id number] Procedure Note Interface, Radiology Results Incoming - 04/20/2019 11:02 AM RISK ASSESSMENT ANALYST EXAMINATION: CT ANGIOGRAM ABDOMINAL AORTA AND BILATERAL [...] are also present throughout the peroneal artery. [facility]-[id number] Performing Organization Address City/[facility] Ph one Number [facility] [address] [place] [address] * Single antigen beads (01/11/2019 7:10 AM RISK ASSESSMENT ANALYST) SAB serum ID [id number] [facility] SAB serum 01/11/2019 07:10 AM [facility] collection D&T [facility] SAB class I B37 [facility] antibody [facility] SAB cPRA class [address] [facility] SAB class II Negative [facility] antibody [facility] SAB cPRA class 0 [facility] Single antigen See link below for PDF Lab [facility] beads Report [facility] Specimen Blood Performing Organization Address City/[facility] Ph one Number [facility] DEPARTMENT OF [address] [place] [address] PATHOLOGY AND GENOMIC MEDICINE [facility] [address] [place] [address] [facility] * Splint Application (01/05/2019 9:09 PM CDT) [...] discussed: No treatmen t and delayed treatment [facility] protocol: Procedure explained and questions ans wered to patient or proxy's satisfaction: yes Patient identity confirmed: Arm ban d and verbally with patient Anesthesia (see [...] procedure: Pastor erated well, no immediate complications after 11/11/2018 Insurance Type Payer Benefit Subscriber ID Effective Phone Address Plan / Dates Group Medicare MEDICARE MEDICARE xxxxxxxxxxx 2003-P [place], PART A AND resent [place] Advance Directives For more information, please contact: [phone] Patient Medical Records Clerk Explanation Type Date Recorded Advance Directives, 05/05/2015 3:51 PM Living Will and Medical Power of Farm Instructor Advance Directives, 05/05/2015 5:58 PM Living Will and Medical Power of Farm Instructor Directive Advance Directives, 01/29/2018 10:58 AM Living Will and Medical Power of Farm Instructor Advance Directives, 11/28/2016 7:44 AM Living Will and Medical Power of Farm Instructor Advance Directives, 07/26/2018 10:32 AM Living Will and Medical Power of Farm Instructor
--- OUTSIDE RECORDS SUMMARY | 2019-11-12 14:50 | XMS REPORT | Clinical Summary ---
Author Author [facility] Organization [facility] Address Unknown Phone Unavailable Care Team Providers Care [employer] Supervisor Name Role Phone PCP Unavailable Allergies No [...] (>/= 19 yrs) Results Not on fileafter 11/11/2018 Insurance Type Payer Benefit Subscriber ID Effective Phone Address Plan / Dates Group [facility] SELF-PAY SELF-PAY xxxxxx 2016- [phone] [id number] [place] [address] Guarantor Name Account Relation to Date of Phone Daisy lee Address Type Patient PAVAN HERNANDEZ Personal/F Head of 1955 [phone] [facility] (Home) [place], [place] [address] (Self)
--- OUTSIDE RECORDS SUMMARY | 2019-11-12 14:51 | XMS REPORT | Continuity of Care Document ---
Author Author [facility] t Organization [facility] Address 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 ASSEMBLER-C, Angelita Jackson Attphys Cielo GREEN, Mary Delgado Attphys Alva [facility], [facility] Joao GREEN, Duong Attphys Mirela GREEN, Gómez Lynn Attphys Tricia Hi MD Attphys Reuben GREEN, Duong Melendez Attphys Lyndon GREEN, Maria R Attphys Diamante GREEN, Ofelia Wilkinson Attphys Mylene GREEN, Mary Snow Attphys Elmer NAGEL, Elizabeth Attphys Unavailable Anne NAGEL, Yajaira Attphys Unavailable Griffin GREEN, Italia Larson Attphys Carmelo DO, Miguel Morales Attphys [phone] ANGELITA ESQUIVEL Attphys Unavailable Jean Marie DO, Akosua Bessd Attphys ZONIA BURNETT Admphys Unavailable MIRELA, LEAH Admphys Unavailable DIAMANTE, MINH Admphys Unavailable ANGELITA ESQUIVEL Admphys Unavailable Payers Payer Name Policy Type Policy Number Effective Date Expiration Date S poly Medicare A & B [id number] 2003 00:00:00 [facility] Cdc Review [id number] [facility] MEDICAREMEDICARE PART A AND Bxxxxxxxxxxx2003-Present[facility] [place] 2003 00:00:00 Ryne Thrasher Problems Condition Name Condition Details Condition Category [...] Ad ded automatically from request for surgery [id number] Ryne Thrasher Combined forms of age-related cataract of right eye Co mbined forms of age- related cataract of right eye Disease Active 2018-06-17 00:00:00 Ryne Thrasher End stage renal disease End stage renal disease Disease Active 2016-07-22 00:00:00 Overview: Added automaticall y from request for surgery [id number] Ryne Thrasher Dependence on hemodialysis Dependence on hemodialysis Disease Active 2016-07-22 00:00:00 Overview: Added automaticall y from request for surgery [id number] Ryne Thrasher Essential hypertension Essential hypertension Disease Active 2015-12-19 00:00:[address] Compression of vein Compression of vein Disease Active 2015-12-19 00:00 :00 Ryne Thrasher End-stage renal disease End-stage renal disease Disease Active 2015-12-19 00:00:00 Ryne krueger Vascular device, implant, or graft complication Vascul ar device, implant, or graft complication Disease Active 2015-12-19 00:00:00 Ryne Thrasher Dialysis complication Dialysis complication Disease Active 201 08-17-10 00:00:00 Ryne paris Diabetes mellitus Diabetes Problem Active [facility] Osteomyelitis of left foot Foot osteomyelitis, left Problem Active [facility] Diabetic foot infection Problem Active [facility] Chronic wound of extremity Problem Active [facility] Chest pain Problem Active [facility] Hyperkalemia Problem Active [facility] End stage renal failure on dialysis Problem Active [facility] Allergies, Adverse Reactions, Alerts Allergy Name Allergy Type Status Severity Reaction(s) Onset Date Inacti ve Date Treating Clinician Comments Source iodine DA Active U 2019-10-19 00:00:00 [facility] iodine DA Active U 2019-10-18 00:00:00 [facility] Iodinated Contrast Media Allergy to substance Active Moderate R NILE 2019-08-02 00:00:00 [facility] CONTRAST DYE Allergy to substance Active Moderate RASH 2019-07-30 00 :00:00 [facility] Iodinated Contrast Media Propensity to adverse reactions to drug Ac tive Other (See Comments) 2019-04-30 00:00:00 "Pt states i t turns his lips black and starts to peel" Ryne Thrasher Heparin Allergy to substance Active 2018-12-29 00:00:00 [facility] Iodine Propensity to adverse reactions to drug Active Other (See Comments) 2018-11-12 00:00:00 "Pt states it turns his lips black and starts to peel" Ryne Thrasher No Known Contrast Allergies DA Active U 2003-04-15 00:00: 00 [facility] No Known Drug Allergies DA Active U 2003-04-15 00:00:00 [facility] No Known Food Allergies DA Active U 2003-04-15 00:00:00 [facility] No Known Other Allergies DA Active U 2003-04-15 00:00:00 [facility] Family History Family Member Diagnosis Comments Start Date Stop Date Source Natural father No Known Problems Tayler edgardo Thrasher Natural mother Hypertension Ryne Thrasher Paternal grandfather Diabetes [place] [facility] Paternal grandfather Hypertension Ho beltran [employer] Paternal grandfather Kidney disease Ryne Thrasher Paternal grandmother Diabetes [place] [facility] Paternal grandmother Hypertension [place] [employer] Paternal grandmother Kidney disease Ryne Thrasher Natural sister Diabetes [facility] thodist Natural sister Kidney disease Alyson Thrasher [...] Dosage Frequency Signature (SIG) Comments Components Source Amoxicillin/Potassium Clav (Augmentin 875-125 Tablet) 1 Each TABLET Amoxicillin/Potassium Clav (Augmentin 875-125 Tablet) 1 Each TABLET 2019-09-30 15:15:00 Yes 1 Twice A Day [facility] Insulin Lispro Insulin Lispro 2019-09-30 15:15:00 Yes 0 Before Meals And At Bedtime [facility] Lactulose Lactulose 2019-09-30 15:15:00 Yes 20 Twice A Day as needed for Constipation [facility] Insulin Glargine (Lantus 3ML Pen) 100 Units/1 Ml INJ I nsulin Glargine (Lantus 3ML Pen) 100 Units/1 Ml INJ 2019-09-30 14:58:00 Yes 10 Bedtime [facility] Bisacodyl (Dulcolax) 5 Mg TABLET. Bisacokattl (Dulcolax) 5 M g TABLET. 2019-08-05 10:28:00 Yes 10 Three Times A Day as needed for Constipation [facility] Sevelamer Hcl (Renvela) 800 Mg TAB Sevelamer Hcl (Renvela) 8 00 Mg TAB 2019-08-05 10:28:00 Yes 1600 Three Times Daily With Meals [facility] Acetaminophen Acetaminophen 2019-08-05 10::2019-09-27 00:00:00 No 650 Every 6 Hours as needed for Mild Pain (1-3) Or Fever>100.8 [facility] Atorvastatin Atorvastatin 2019-08-05 10::2019-09-27 00:00:00 No 40 Bedtime [facility] Cefepime Hcl/Dextrose, Iso-Osm (Cefepime 1 Gm Injectio n) 1 Gm/50 Ml FROZ.PIGGY Cefepime Hcl/Dextrose, Iso-Osm (Cefepime 1 Gm Injection) 1 Gm/50 Ml FROZ.PIGGY 2019-08-05 10::2019-09-27 00:00:00 No 1 Daily [facility] Dextrose (Dextrose 50%-Water Syringe) 50 Ml INJ Dextro se (Dextrose 50%-Water Syringe) 50 Ml INJ 2019-08-05 10::2019-09-27 00:00:00 No 50 As Needed as needed for Blood Sugar [facility] Epoetin Huang-Epbx (Retacrit) 10,000 Unit/1 Ml VIAL Epo etin Huang-Epbx (Retacrit) 10,000 Unit/1 Ml VIAL 2019-08-05 10:28:2019-09-27 00:00:00 No 5000 Every Friday, Friday, And Friday [facility] Famotidine/Pf (Famotidine 20 Mg/2 Ml Vial) 20 Mg/2 Ml VIAL Famotidine/Pf (Famotidine 20 Mg/2 Ml Vial) 20 Mg/2 Ml VIAL 2019-08-05 10:28:2019-09-09 0 00:00:00 No 20 Today At 6:00AM [facility] Hydralazine Hcl Hydralazine Hcl 2019-08-05 10:28:2019-09-27 00:00:00 No 10 Every 4 Hours as needed for High Blood Pressure [facility] Hydrocodone/Apap 10MG-325MG Hydrocodone/Apap 10MG-325MG 10:28:2019-09-27 00:00:00 No 1 Every 6 Ho urs as needed for Moderate Pain (4-6) [facility] Ins[facility] Glargine Insulin Glargine 2019-08-05 10::2019-09-27 00:00 :00 No 15 Bedtime [facility] Insulin Lispro Insulin Lispro 2019-08-05 10::2019-09-27 00:00:00 No 0 Before Meals And At Bedtime [facility] Lactulose Lactulose 2019-08-05 10::2019-09-27 00:00:00 No 20 Twice A Day as needed for Constipation [facility] Morphine Sulfate 2MG/Ml Morphine Sulfate 2MG/Ml 2019-08-05 10: :2019-09-27 00:00:00 No 2 Every 6 Hours as needed for Sev ere Pain (7-10) [facility] Vancomycin/0.9 % Sod Chloride (Vancomyci n 1 G/200ML-0.9% Nacl) 1 Gm/200 Ml FROZ.PIGGY Vancomycin/0.9 % Sod Chloride (Vancomyci n 1 G/200ML-0.9% Nacl) 1 Gm/200 Ml FROZ.PIGGY 2019-08-05 10:28:2019-09-27 00:00:00 No 1 Mowefr@1800 [facility] Zolpidem Tartrate (Ambien) 5 Mg TABLET Zolpidem Tartrate (Am ran) 5 Mg TABLET 2019-08-05 10:28:2019-09-27 00:00:00 No 5 Bedtime as needed for Insomnia [facility] Pregabalin (Lyrica) 75 Mg CAP Pregabalin (Lyrica) 75 Mg CAP 2019 12:13:00 Yes 75 Daily [facility] Amlodipine Besylate (Norvasc) 10 Mg TAB Amlodipine Besylate (Norvasc) 10 Mg TAB 2019-06-22 10:53:00 Yes 10 Daily [facility] Aspirin (Aspirin Chew) 81 Mg CHEW Aspirin (Aspirin Chew) 81 Mg CHEW 2019-06-22 10:53:00 Yes 81 Daily [facility] Atorvastatin Atorvastatin 2019-06-22 10:53:00 Yes 40 Bedtime [facility] Calcium Acetate Calcium Acetate 2019-06-22 10:53:00 2019-09-27 00:00:00 No 1334 Three Times Daily With Meals [facility] Hydrocodone/Apap 10MG-325MG Hydrocodone/Apap 10MG-325MG 10:53:00 2019-09-27 00:00:00 No 1 Every 6 Ho urs as needed for Moderate Pain (4-6) [facility] Insulin Glargine Insulin Glargine 2019-06-22 10:53:00 2019-09-27 00:00 :00 No 15 Bedtime [facility] Insulin Lispro Insulin Lispro 2019-06-22 10:53:00 2019-09-27 00:00:00 No 0 Before Meals And At Bedtime [facility] Zolpidem Tartrate (Ambien) 5 Mg TABLET Zolpidem Tartrate (Am ran) 5 Mg TABLET 2019-06-22 10:53:00 2019-09-27 00:00:00 No 5 Bedti me [facility] lanthanum (FOSRENOL) 1000 MG chewable tablet 2019-05-04 16:40:02 Yes 1000mg Q.[id number] Chew 1,000 mg 3 (three) times a day w ith meals. Ryne Thrasher calcium acetate (PHOSLO) 667 mg capsule 2019-05-04 16:40:02 Yes 1334mg Q.[id number] Take 1,334 mg by mouth 3 (three) times a day with meals. Ryne Thrasher gabapentin (NEURONTIN) 100 mg capsule 2019-05-04 16:40:02 Yes 100mg Q.5D Take 100 mg by mouth 2 (two) times a day. Ryne Thrasher insulin ASPART (NovoLOG) 100 unit/mL injection 2019-05-04 16:40: 02 Yes 10U Q.[id number] Inject 10 Units under the sk in [...] MG tablet 2019-04-11 5 00:00:00 2020-05-03 23:59:00 No .2mg Q.5D Take 1 tablet (0.2 mg total) by mouth 2 (two) times a day. Ryne Thrasher nitroglycerin (NITROSTAT) 0.4 MG SL tablet 05-04 00:00:00 2020-05-03 23:59:[address] 1 tablet (0.4 mg total) under the tongue every 5 (five) minutes as needed for chest pain. Ryne Thrasher pentoxifylline (TRENTal) 400 mg CR tablet 05-04 00:00:00 2020-05-03 23:59:00 No 400mg Q.5D Take 1 tablet (400 mg [...] a day for 7 days. Ryne Thrasher SENSIPAR 60 mg tablet 2018-05-08 00:00:00 Yes 60mg QD Take 60 mg by mouth daily. Ryne Thrasher ofloxacin (OCUFLOX) 0.3 % ophthalmic solution 20 28-03-17 00:00:00 2019-04-21 00:00:00 No Ryne Thrasher prednisoLONE acetate (PRED FORTE) 1 % ophthalmic suspension 2018-03-27 00:00:00 2019-04-21 00:00:00 No Ryne Thrasher traMADol (ULTRAM) 50 mg tablet 2018-03-18 00:00:00 Yes 50mg Q12H Take 50 mg by mouth every 12 (twelve) hours as needed for moderate pain. Ryne Thrasher simvastatin (ZOCOR) 20 mg tablet 2016-01-12 12:42:00 Yes 20mg Take 20 mg by mouth at bedtime. [facility] glipiZIDE (GLUCOTROL) 10 mg tablet 2016-01-12 12:42:00 Yes 10mg Q.5D Take 10 mg by mouth 2 times daily (before meals). [facility] metoprolol (TOPROL XL) 100 mg extended release tablet 2016-01-12 12:42:00 Yes 100mg QD Take 100 mg by mouth daily. [facility] amitriptyline (ELAVIL) 50 mg tablet 2016-01-12 12:42:00 Yes 50mg Take 50 mg by mouth at bedtime. [facility] VICODIN 5 MG-500 MG TAB 2009-10-02 00:00:00 Yes D ental caries take 1 tablet by oral route every 4-6 hours as needed for pain [facility] CHLORHEXIDINE GLUCONATE 0.12 % MOUTHWASH 2009-10-02 00:00:[address] 15 milliliters in the mouth by mucous membrane route 2 times per day (after meals), swish in mouth for 30 seconds then spit out [facility] Acetaminophen With Codeine (Tylenol With Codeine #3 Ta blet) 1 Each TABLET Acetaminophen With Codeine (Tylenol With Codeine #3 Tablet) 1 Each TABLET Yes 300 Every 6 Hours as needed for Pain [facility] Cinacalcet Hcl (Sensipar) 60 Mg TABLET Cinacalcet Hcl (Sensipar) 60 Mg TABLET Yes 60 Before Meals [facility] Dialyvite 800-Zinc15 Dialyvite 800-Zinc15 Yes .8 Daily [facility] Gabapentin Gabapentin Yes Twice A Day [facility] Metoprolol Tartrate Metoprolol Tartrate Yes 100 Twice A Day [facility] Pantoprazole Sod (Protonix) 40 Mg/Ml SUSP Pantoprazole Sod (Protonix) 40 Mg/Ml SUSP Yes 40 Daily [facility] Rivaroxaban (Xarelto) 10 Mg TABLET Rivaroxaban (Xarelto) 10 Mg TABLET Yes 10 Daily [facility] Tramadol Hcl (Ultram 50MG*) 50 Mg TAB Tramadol Hcl (Ultram 50MG*) 5 0 Mg TAB Yes 50 Twice A Day as needed for Mild Pain (1-3 ) [facility] Ciprofloxacin Hcl (Cipro) 500 Mg TABLET Ciprofloxacin Hcl (C ipro) 500 Mg TABLET 2019-09-30 00:00:00 No 500 Daily [facility] Cefalexin Cefalexin 2019-08-05 00:00:00 No 500 Twice A Day [facility] Clonidine Hcl Clonidine Hcl 2019-08-05 00:00:00 No .2 Twice A Day [facility] Clopidogrel Bisulfate (Plavix) 75 Mg TABLET Clopidogre l Bisulfate (Plavix) 75 Mg TABLET 2019-08-05 00:00:00 No 75 Daily [facility] Doxycycline Hyclate Doxycycline Hyclate 2019-08-05 00:00:00 No 100 Twice A Day [facility] Isosorbide Mononitrate (Isosorbide Mononitrate Er) 30 Mg TAB.ER.24H Isosorbide Mononitrate (Isosorbide Mononitrate Er) 30 Mg TAB.ER.24H 202 00:00:00 No 30 Daily [facility] Lanthanum Carbonate (Fosrenol) 1,000 Mg TAB.CHEW Lanth eric Carbonate (Fosrenol) 1,000 Mg TAB.CHEW 2019-08-05 00:00:00 No 1 After Meals [facility] Pentoxifylline Er Pentoxifylline Er 2019-08-05 00:00:00 No 400 Twice A Day [facility] Calcium Acetate Calcium Acetate 2019-06-22 00:00:00 No 2 Before Meals [facility] Gabapentin Gabapentin 2019-06-22 00:00:00 No 100 Twi ce A Day [facility] Insulin Aspart (Novolog) 100 Units/1 Ml INJ Insulin As part (Novolog) 100 Units/1 Ml INJ 2019-06-22 00:00:00 No 10 Before Meals [facility] Lanthanum Carbonate (Fosrenol) 1,000 Mg TAB.CHEW Lanth eric Carbonate (Fosrenol) 1,000 Mg TAB.CHEW 2019-06-22 00:00:00 No 1000 Before Meals [facility] Tramadol Hcl (Ultram) 50 Mg TABLET Tramadol Hcl (Ultram) 50 Mg T ABLET 2019-06-22 00:00:00 No 50 Twice A Day [facility] Immunizations Ordered Immunization Name Filled Immunization Name Date Status Comments Source Influenza <Unspecified> 2015-12-27 00:00:00 Completed [facility] Vital Signs Vital Name Observation Time Observation Value Comments Source Body Temperature 2019-09-30 17:18:00 98.4 [degF] [facility] BMI (Body Mass Index) 2019-09-26 20:20:00 6.1 kg/m2 [facility] Weight 2019-09-26 16:22:00 180 [lb_av] [facility] Heart rate 2019-05-04 16:00:00 65 /min Ryne Thrasher Systolic blood pressure 2019-05-04 15:39:21 118 mm[Hg] [place] [employer] Diastolic blood pressure 2019-05-04 15:39:21 66 mm[Hg] [facility] Body temperature 2019-05-04 15:39:21 36.11 Saadia Luis dre [employer] Oxygen saturation in Arterial blood by Pulse oximetry 05-04 15:39:21 99 /min Ryne Thrasher Respiratory rate 2019-05-04 04:36:33 17 /min Luis erickson [employer] Body weight 2019-05-02 11:02:48 80.015 kg Ryne Thrasher BMI 2019-05-02 11:02:48 23.92 kg/m2 [place] [employer] Body height 2019-04-29 17:28:00 182.9 cm Ryne Thrasher Procedures Procedure Date / Time Performed Performing Clinician Formerly [facility] e Computed tomography of chest without contrast 2019-09-28 00:00:0 0 [facility] Computed tomography of brain without radiopaque contrast 2019-09 00:00:00 [facility] Computed tomography of brain without radiopaque contrast 2019-07 00:00:00 [facility] PERFORMANCE OF URINARY FILTRATION, <6 HRS/DAY 2019-07-30 00:00:0 0 [facility] DETACHMENT AT LEFT FOOT, COMPLETE 1ST RAY, OPEN APPROACH 2019-07 00:00:00 [facility] DETACHMENT AT LEFT FOOT, COMPLETE 2ND RAY, OPEN APPROACH 2019-07 00:00:00 [facility] DETACHMENT AT LEFT FOOT, COMPLETE 3RD RAY, OPEN APPROACH 2019-07 00:00:00 [facility] DETACHMENT AT LEFT FOOT, COMPLETE 4TH RAY, OPEN APPROACH 2019-07 00:00:00 [facility] DETACHMENT AT LEFT FOOT, COMPLETE 5TH RAY, OPEN APPROACH 2019-07 00:00:00 [facility] TRANSFER L FOOT SUBCU/FASCIA, OPEN APPROACH 2019-07-29 00:00:00 [facility] DIVISION OF LEFT LOWER LEG TENDON, OPEN APPROACH 2019-07-29 00:0 0:00 [facility] DETACHMENT AT RIGHT LOWER LEG, MID, OPEN APPROACH 2019-06-18 00: 00:00 [facility] TRANSFUSE NONAUT RED BLOOD CELLS IN CENTRAL VEIN, PERC 8 00:00:00 [facility] DETACHMENT AT RIGHT 1ST TOE, COMPLETE, OPEN APPROACH 2019-06-11 00:00:00 [facility] DETACHMENT AT RIGHT 5TH TOE, COMPLETE, OPEN APPROACH 2019-06-11 00:00:00 [facility] DETACHMENT AT RIGHT 4TH TOE, COMPLETE, OPEN APPROACH 2019-06-11 00:00:00 [facility] DETACHMENT AT RIGHT 3RD TOE, COMPLETE, OPEN APPROACH 2019-06-11 00:00:00 [facility] DETACHMENT AT RIGHT 2ND TOE, COMPLETE, OPEN APPROACH 2019-06-11 00:00:00 [facility] PERFORMANCE OF URINARY FILTRATION, <6 HRS/DAY 2019-06-10 00:00:0 0 [facility] X-ray of chest, two views 2019-06-09 00:00:00 BEBE RAMIREZ CH, I [facility] POC GLUCOSE 2019-05-04 14:08:00 Leah Dietz POC GLUCOSE 2019-05-04 08:49:00 Leah Dietz HC COMPLETE BLD COUNT W/AUTO DIFF 2019-05-04 05:10:00 Milady Hi SMEAR REVIEW 2019-05-04 05:10:00 Sebas Hi ethodist POC GLUCOSE 2019-05-03 22:28:00 Leah Dietz POC GLUCOSE 2019-05-03 18:22:00 Leah Dietz CV AORTOGRAM ABDOMINAL AORTA 2019-05-03 17:35:51 Sebas Hi ESTIMATED GFR 2019-05-03 15:30:00 Leah Dietz POC PANEL 2019-05-03 15:30:00 Leah Dietz POC GLUCOSE 2019-05-03 08:34:00 Leah Dietz HC COMPLETE BLD COUNT W/AUTO DIFF 2019-05-03 07:25:00 Milady Hi BASIC METABOLIC PANEL 2019-05-03 07:25:00 Hansa Lincoln ESTIMATED GFR 2019-05-03 07:25:00 OgHansa jarato n [employer] POC GLUCOSE 2019-05-02 21:13:00 Leah Dietz POC GLUCOSE 2019-05-02 18:25:00 Leah Dietz HEMODIALYSIS 2019-05-02 17:51:21 Jose Alejandro Raza odemeka POC GLUCOSE 2019-05-02 07:21:00 Leah Dietz HC COMPLETE BLD COUNT W/AUTO DIFF 2019-05-02 05:11:00 Farhat Lincoln [employer] BASIC METABOLIC PANEL 2019-05-02 05:11:00 Hansa Lincoln ESTIMATED GFR 2019-05-02 05:11:00 OgHansa jarato n [employer] POC GLUCOSE 2019-05-01 20:55:00 Leah Dietz POC GLUCOSE 2019-05-01 17:03:00 Leah Dietz [employer] POC GLUCOSE 2019-05-01 13:01:00 Leah Dietz POC GLUCOSE 2019-05-01 11:43:00 Leah Dietz US CAROTID DUPLEX BILATERAL 2019-05-01 10:15:00 Angel Lugo POC GLUCOSE 2019-05-01 07:36:00 Leah iDetz BASIC METABOLIC PANEL 2019-05-01 04:00:00 Leah Dietz [employer] PHOSPHORUS LEVEL 2019-05-01 04:00:00 Jose Alejandro Raza hodist ESTIMATED GFR 2019-05-01 04:00:00 Leah Dietz POC GLUCOSE 2019-04-30 22:46:00 Leah Dietz POC GLUCOSE 2019-04-30 21:11:00 Leah Dietz POC GLUCOSE 2019-04-30 17:47:00 Leah Dietz POC GLUCOSE 2019-04-30 16:36:00 Leah Dietz HEMODIALYSIS 2019-04-30 14:27:05 Jose Alejandro Raza Meth odist POC GLUCOSE 2019-04-30 13:51:00 Leah Dietz POC GLUCOSE 2019-04-30 12:00:00 Leah Dietz POC GLUCOSE 2019-04-30 11:13:00 Leah Dietz POC GLUCOSE 2019-04-30 08:12:00 Leah Dietz BASIC METABOLIC PANEL 2019-04-30 05:00:00 Leah Dietz [employer] LIPID PANEL 2019-04-30 05:00:00 Leah Dietz HEMOGLOBIN [...] EXTREMITY BILATERAL 2019-04-29 21:3 0:00 Tremayne Calle US ANKLE BRACHIAL INDEX 2019-04-29 20:00:00 [facility] ECG 12-LEAD 2019-04-29 18:14:24 Tremayne Calle In thodist HC COMPLETE BLD COUNT W/AUTO DIFF 2019-04-29 17:59:00 Meera Calle PROTHROMBIN TIME WITH INR 2019-04-29 17:59:00 Tremayne Calle PARTIAL THROMBOPLASTIN TIME (PTT) 2019-04-29 17:59:00 Meera Calle TYPE AND SCREEN 2019-04-29 17:59:00 Tremayne Calle In thodist COMPREHENSIVE METABOLIC PANEL 2019-04-29 17:59:00 Tremayne Calle LACTIC ACID LEVEL, SEPSIS - NOW AND REPEAT 2X EVERY 3 HOURS 2019-04-29 17:59:00 Leah Dietz ESTIMATED GFR 2019-04-29 17:59:00 Tremayne Calle In thodist ECG ED PRELIMINARY INTERPRETATION 2019-04-29 17:43:51 Meera Calle POC GLUCOSE 2019-04-24 07:20:00 Minh Bobby BASIC METABOLIC PANEL 2019-04-24 06:30:00 Minh Bobby HC COMPLETE BLD COUNT W/AUTO DIFF 2019-04-24 06:30:00 Minh Bobby ESTIMATED GFR 2019-04-24 06:30:00 Minh Bobbyl Misty vaughan [employer] MAGNESIUM LEVEL 2019-04-24 06:30:00 Pia Bobbyrainamalindaevelia Zavalavarlal H clement [employer] POC GLUCOSE 2019-04-23 21:01:00 Pia Bobbyjohana Zavalavarlal H clement [employer] POC GLUCOSE 2019-04-23 17:48:00 Pia Bobbyjohana Zavalavarlal H clement [employer] POC GLUCOSE 2019-04-23 16:48:00 Kunal Bobbyeevlia Oneilll H clement [employer] POC GLUCOSE 2019-04-23 15:46:00 Pia Bobbyjohana Natvarlal H clement [employer] POC GLUCOSE 2019-04-23 11:22:00 Pia Bobbyrainamalindaevelia Oneilll H clement [employer] HC COMPLETE BLD COUNT W/AUTO DIFF 2019-04-23 08:00:00 Diamante Minh Thrasher POC GLUCOSE 2019-04-23 07:22:00 Pia Bobbyjohana Oneilll Misty Thrasher ECG 12-LEAD 2019-04-23 05:20:58 Angel Lugo Meth odist POC GLUCOSE 2019-04-23 05:10:00 Diamante Minh Oneilll H clement Thrasher BASIC METABOLIC PANEL 2019-04-23 04:00:00 iPa Bobbyjohana Michele [employer] MAGNESIUM LEVEL 2019-04-23 04:00:00 Diamante Minh Oneilll Misty Thrasher ESTIMATED GFR 2019-04-23 04:00:00 Pia Bobbyjohana Zavalavarlal H clement [employer] TROPONIN 2019-04-23 04:00:00 Diamante Minh Natvarlal H clement [employer] POC GLUCOSE 2019-04-23 02:41:00 Diamante Minh Zavalavarlal H clement [employer] POC GLUCOSE 2019-04-22 23:42:00 Diamante Minh Zavalavarlal H clement [employer] POC GLUCOSE 2019-04-22 23:38:00 BobbyMinhvarelsal H clement [employer] POC GLUCOSE 2019-04-22 21:18:00 Minh Bobby Naelal Misty vaughan [employer] POC GLUCOSE 2019-04-22 18:17:00 Minh Bobby Naelal Misty vaughan [employer] POC GLUCOSE 2019-04-22 15:49:00 Minh Bobby Naelal Misty vaughan [employer] CV PCI 2019-04-22 15:09:51 Angel Lugo Meth odist ACTIVATED CLOTTING TIME 2019-04-22 14:42:00 Minh Bobby Sally Michele [employer] POC GLUCOSE 2019-04-22 12:25:00 Minh Bobby Ninol Misty vaughan [employer] HEMODIALYSIS 2019-04-22 12:20:25 Jose Alejandro Raza Meth odist POC GLUCOSE 2019-04-22 11:33:00 Minh Bobby Ofelia vaughan [employer] POC GLUCOSE 2019-04-22 09:18:00 Kunal Bobbyevelia vaughan [employer] POC GLUCOSE 2019-04-22 06:41:00 Minh Bobby Ofelia vaughan [employer] ANTI XA, UNFRACTIONATED 2019-04-22 06:40:00 Angel Lugo [employer] POC GLUCOSE 2019-04-22 06:19:00 Minh Bobby Ofelia vaughan [employer] POC GLUCOSE 2019-04-22 05:05:00 Minh Bobby Ofelia vaughan [employer] POC GLUCOSE 2019-04-22 02:15:00 Minh Bobby Ofelia vaughan [employer] HC COMPLETE BLD COUNT W/AUTO DIFF 2019-04-22 00:00:00 Minh Bobby Ofelia Michlee [employer] COMPREHENSIVE METABOLIC PANEL 2019-04-22 00:00:00 Misael Bobby meera Thrasher TROPONIN 2019-04-22 00:00:00 Minh Bobby Naelal Misty vaughan [employer] ANTI XA, UNFRACTIONATED 2019-04-22 00:00:00 Angel Lugo ESTIMATED GFR 2019-04-22 00:00:00 Pia Bobbytmilla vaughan [employer] POC GLUCOSE 2019-04-21 21:10:00 Diamante Minh Thrasher PROTHROMBIN TIME WITH INR 2019-04-21 16:00:00 Angel Lugo PARTIAL THROMBOPLASTIN TIME (PTT) 2019-04-21 16:00:00 Angel Lugo ANTI XA, UNFRACTIONATED 2019-04-21 16:00:00 Angel Lugo TROPONIN 2019-04-21 16:00:00 Diamante Minh Thrasher HEPATITIS B SURFACE ANTIGEN 2019-04-21 13:35:00 Jose Alejandro Raza POC GLUCOSE 2019-04-21 12:47:00 Diamante Minh Thrasher ECG 12-LEAD 2019-04-21 12:32:31 BobbyMinh TROPONIN 2019-04-21 12:31:00 BobbyMinh TTE COMPLETE, WO CONTRAST, W DOPPLER ([id number]) 2019-04-21 10:3 5:47 Minh Bobby TROPONIN 2019-04-21 09:12:00 Diamante Minh Thrasher POC GLUCOSE 2019-04-21 08:09:00 Diamante Minh Thrasher HEMODIALYSIS 2019-04-21 07:33:52 Jose Alejandro Raza odist POC GLUCOSE 2019-04-21 06:43:00 BobbyMinh POC GLUCOSE 2019-04-21 05:22:00 Maria R Haney odist TROPONIN 2019-04-21 05:20:00 Al Alexis POC GLUCOSE 2019-04-21 04:50:00 Maria R Haney Meth odist ECG ED PRELIMINARY INTERPRETATION 2019-04-21 03:23:33 Wendie Alexis XR CHEST 1 VW PORTABLE 2019-04-21 03:04:58 Al Alexis HC COMPLETE BLD COUNT W/AUTO DIFF 2019-04-21 02:28:00 Wendie Alexis COMPREHENSIVE METABOLIC PANEL 2019-04-21 02:28:00 Al Alexis TROPONIN 2019-04-21 02:28:00 Al Alexis B NATRIURETIC PEPTIDE 2019-04-21 02:28:00 Al Alexis ESTIMATED GFR 2019-04-21 02:28:00 Annarer Jimmymisty Thrasher ECG 12-LEAD 2019-04-21 00:34:[address] ANGIOGRAM ABDOMINAL AORTA AND BILATERAL ILIOFEMORAL RUNOFF W WO CONTRAST 2019-04-20 09:54:33 Danny Glover SINGLE ANTIGEN BEADS 2019-01-11 07:10:00 Neo Moya [place] APPLY LOWER LEG SPLINT 2019-01-05 21:09:38 Nikole Esteban [place] RESUPERF WND BODY <2.5CM 2019-01-05 19:58:55 Devan Rhodes PERFORMANCE OF URINARY FILTRATION, <6 HRS/DAY 2019-01-04 00:00:0 0 [facility] EXCISION OF LEFT METATARSAL, OPEN APPROACH 2019-01-01 00:00:00 [facility] TRANSFER LEFT FOOT SKIN, EXTERNAL APPROACH 2019-01-01 00:00:00 [facility] DRAINAGE OF L FOOT SUBCU/FASCIA, OPEN APPROACH 2019-01-01 00:00: 00 [facility] PERFORMANCE OF URINARY FILTRATION, <6 HRS/DAY 2019-01-01 00:00:0 0 [facility] X-ray of chest, two views 2018-12-31 00:00:00 SAVANNA MO CH, I [facility] PERFORMANCE OF URINARY FILTRATION, <6 HRS/DAY 2018-12-30 00:00:0 0 [facility] Plan of Care Planned Activity Planned Date Details Comments Source Future Scheduled Test 2019-12-09 00:00:00 IMM Influenza Seas onal Dec to May (>/= 19 yrs) [code = IMM Influenza Seasonal Dec to May (>/= 19 yrs)] [facility] Scheduled Test 2019-12-09 00:00:00 INFLUENZA VACCINE [code = INFLUENZA VACCINE] [facility] Scheduled Test 2007-10-09 00:00:00 Screening for julio césar gnant neoplasm of colon (procedure) [code = 982035570] [facility] Scheduled Test 2007-10-09 00:00:00 COLONOSCOPY SCREEN ING [code = COLONOSCOPY SCREENING] [facility] Scheduled Test 2007-10-09 00:00:00 SHINGLES VACCINES (#1) [code = SHINGLES VACCINES (#1)] [facility] Scheduled Test 1967-10-09 00:00:00 DIABETIC FOOT EXAM [code = DIABETIC FOOT EXAM] [facility] Scheduled Test 1967-10-09 00:00:00 URINE MICROALBUMIN [code = URINE MICROALBUMIN] [facility] Scheduled Test 1955 00:00:00 DIABETIC RETINAL E YE EXAM [code = DIABETIC RETINAL EYE EXAM] [facility] Instructions Chest Pain - Chest [facility] Encounters Start Date/Time End Date/Time Encounter Type Admission Type [facility] Care Department Encounter ID Source 2019-10-14 12:15:00 2019-10-14 12:15:00 Outpatient [id number] [facility] 2019-07-29 15:00:00 2019-08-05 15:45:00 Discharged Inpatient 1 LEX [facility] [id number] [facility] 2019-06-09 17:51:00 2019-06-22 18:07:00 Discharged Inpatient 3 ZONIA BURNETT [facility] [id number] [facility] 2019-05-18 00:00:00 2019-05-18 00:00:00 Outpatient LAY GLOVER [facility] [id number] [facility] 2019-04-29 00:00:00 2019-05-04 00:00:00 Inpatient BENJAMIN DIETZ [facility] 064 [id number] [facility] 2019-04-21 00:00:00 2019-04-24 00:00:00 Inpatient MISAEL BOBBY [facility] 060 [id number] [place] [employer] 2019-04-20 00:00:00 2019-04-20 00:00:00 Outpatient LAY GLOVER [facility] [id number] [place] [employer] 2018-12-29 13:59:00 2019-01-05 07:20:00 Discharged Inpatient 1 ANGELITA ESQUIVEL [facility] [id number] [facility] 2019-01-05 00:00:00 2019-01-05 00:00:00 Emergency DEVAN RHODES [facility] 064 [id number] [facility] 2018-11-12 00:00:00 2018-11-12 00:00:00 Emergency LORENA ADEN [facility] 064 [id number] [facility] Results Test Description Test Time Test Comments Results Result Comments Source CHEST SINGLE (PORTABLE) 2019-11-12 14:16:00 [place] [id number] Patient Name: DUONG HERNANDEZ MR #: [id number] : 1955 Age/Sex: 64/M Req #: [id number] Adm Physician: Ordered by: DIAZ BROWN MD Report #: [id number] Location: ER Room/Bed: Procedure: [id number] DX/CHEST SINGLE (PORTABLE) Exam Date: Exam Time: REPORT STATUS: Signed TECHNIQUE: Frontal view of the chest. INDICATION: ESRD NEEDS HD COMPARISON: 09/26/2019 DISCUSSION: Limited evaluation due to portable technique. Lines and hardware: Midline sternotomy changes are noted. Cervical fusion changes are noted. Right subc lavian stent is stable. Right upper extremity venous stent is noted. Postsurgical changes of the left approximately are noted. Heart and mediastinum: Cardiomediastinal silhouette is mildly enlarged. Mild central vascular congestion is noted. Lungs and pleura: No focal airspace consolidation. No pleural effusion. No pneumothorax. Soft tissues and bones: No acute abnormality. IMPRESSION: 1. No acute infiltrate. 2. Mild cardiomegaly and central vascular congestion are noted which could relate to fluid overload. Signed by: Rios Bobby MD on 11/12/2019 2:19 PM Dictated By: RIOS BOBBY MD 141 Transcribed By: FELECIA on 11/12/19 1419 COPY TO: DIAZ BROWN MD GLUBED 2019-10-26 06:06:00 Test Item GLUBED (test code = GLUBED) 274 MG/DL 74-106 H [id number] 07:05:00* Test Item Value Reference Range Interpretation Comments GLUBED (test code = GLUBED) 219 MG/DL 74-106 H [id number] 07:05:00* Test Item Value Reference Range Interpretation Comments GLUBED (test code = GLUBED) 140 MG/DL 74-106 H [id number] 17:04:00* Test Item Value Reference Range Interpretation Comments GLUBED (test code = GLUBED) 292 MG/DL 74-106 H [id number] 12:33:00* Test Item Value Reference Range Interpretation Comments GLUBED (test code = GLUBED) 232 MG/DL 74-106 H [id number] 05:51:00* Test Item Value Reference Range Interpretation Comments GLUBED (test code = GLUBED) 279 MG/DL 74-106 H [id number] 05:51:00* Test Item Value Reference Range Interpretation Comments GLUBED (test code = GLUBED) 215 MG/DL 74-106 H [id number] 23:13:00* Test Item Value Reference Range Interpretation Comments GLUBED (test code = GLUBED) 283 MG/DL 74-106 H [id number] 19:08:00* Test Item Value Reference Range Interpretation Comments GLUBED (test code = GLUBED) 249 MG/DL 74-106 H [id number] 12:40:00* Test Item Value Reference Range Interpretation Comments GLUBED (test code = GLUBED) 84 MG/DL 74-106 N [id number] 12:40:00* Test Item Value Reference Range Interpretation Comments GLUBED (test code = GLUBED) 48 MG/DL 74-106 LL A VENOUS SPECIMEN SHOULD BE ORDERED FOR GLUCOSE VERIFICATION IF MEDICALLY NECESSARY. [id number] 06:23:00* Test Item Value Reference Range Interpretation Comments GLUBED (test code = GLUBED) 289 MG/DL 74-106 H BASIC METABOLIC [id number] 05:31:00* Test Item Value Reference Range Interpretation Comments SODIUM (test code = NA) 134 mmol/L 137-145 L POTASSIUM (test code = K) 4.5 mmol/L 3.4-5.0 N CHLORIDE (test code = CL) 97 mmol/L 98-107 L CARBON DIOXIDE (test code = CO2) 24 mmol/L 22-30 N GLUCOSE (test code = GLU) 261 mg/dL 74-106 H BLOOD UREA NITROGEN (test code = BUN) 36 mg/dL 9-20 H GLOMERULAR FILTRATION RATE (test code = GFR) 7 >60 L The estimated glomerular filtration rate is computed usingpatient race, age (>18), sex, and serum creatinine. If anyof the needed data elements are missing the Laboratory cannot compute an estimation of the glomerular filtration rate. CREATININE (test code = CREAT) 8.6 mg/dL 0.7-1.3 H CALCIUM (test code = CA) 9.3 mg/dL 8.4-10.2 N CBC W/AUTO [id number] 05:11:00* Test Item Value Reference Range Interpretation Comments WHITE BLOOD CELL (test code = WBC) 3.4 x10 3/uL 5.0-12.0 L RED BLOOD CELL (test code = RBC) 4.37 x10 6/uL 4.70-6.10 L HEMOGLOBIN (test code = HGB) 12.1 g/dL 14.0-18.0 L HEMATOCRIT (test code = HCT) 41.1 % 37.0-49.0 N MEAN CELL VOLUME (test code = MCV) 94 fL 80-94 N MEAN CELL HGB (test code = MCH) 27.7 pg 27-31 N MEAN CELL HGB CONCENTRATION (test code = MCHC) 29.4 g/dL 33-37 L RED CELL DISTRIBUTION WIDTH (test code = RDW) 14.9 % 11.5-15. 5 N PLATELET COUNT (test code = PLT) 130 x10 3/uL 130-400 N MEAN PLATELET VOLUME (test code = MPV) 12.2 fL 9.4-16.4 N NEUTROPHIL % (test code = NT%) 54.6 % 43-65 N IMMATURE GRANULOCYTE % (test code = IG%) 0.3 % 0.0-2.0 N LYMPHOCYTE % (test code = LY%) 23.0 % 20.5-45.5 N MONOCYTE % (test code = MO%) 12.1 % 5.5-11.7 H EOSINOPHIL % (test code = EO%) 9.4 % 0.9-2.9 H BASOPHIL % (test code = BA%) 0.6 % 0.2-1.0 N NUCLEATED RBC % (test code = NRBC%) 0.0 % 0-1.0 N NEUTROPHIL # (test code = NT#) 1.85 x10 3/uL 2.2-4.8 L IMMATURE GRANULOCYTE # (test code = IG#) 0.01 x10 3/uL 0-0.03 N LYMPHOCYTE # (test code = LY#) 0.78 x10 3/uL 1.3-2.9 L MONOCYTE # (test code = MO#) 0.41 x10 3/uL 0.3-0.8 N EOSINOPHIL # (test code = EO#) 0.32 x10 3/uL 0.0-0.2 H BASOPHIL # (test code = BA#) 0.02 x10 3/uL 0.0-0.1 N [id number] 20:46:00* Test Item Value Reference Range Interpretation Comments GLUBED (test code = GLUBED) 207 MG/DL 74-106 H [id number] 17:25:00* Test Item Value Reference Range Interpretation Comments GLUBED (test code = GLUBED) 175 MG/DL 74-106 H [id number] 13:24:00* Test Item Value Reference Range Interpretation Comments GLUBED (test code = GLUBED) 171 MG/DL 74-106 H [id number] 08:15:00* Test Item Value Reference Range Interpretation Comments GLUBED (test code = GLUBED) 146 MG/DL 74-106 H BASIC METABOLIC [id number] 05:17:00* Test Item Value Reference Range Interpretation Comments SODIUM (test code = NA) 135 mmol/L 137-145 L POTASSIUM (test code = K) 4.2 mmol/L 3.4-5.0 N CHLORIDE (test code = CL) 98 mmol/L 98-107 N CARBON DIOXIDE (test code = CO2) 29 mmol/L 22-30 N GLUCOSE (test code = GLU) 126 mg/dL 74-106 H BLOOD UREA NITROGEN (test code = BUN) 24 mg/dL 9-20 H GLOMERULAR FILTRATION RATE (test code = GFR) 9 >60 L The estimated glomerular filtration rate is computed usingpatient race, age (>18), sex, and serum creatinine. If anyof the needed data elements are missing the Laboratory cannot compute an estimation of the glomerular filtration rate. CREATININE (test code = CREAT) 6.4 mg/dL 0.7-1.3 H CALCIUM (test code = CA) 9.1 mg/dL 8.4-10.2 N CBC W/AUTO [id number] 04:51:00* Test Item Value Reference Range Interpretation Comments WHITE BLOOD CELL (test code = WBC) 4.4 x10 3/uL 5.0-12.0 L RED BLOOD CELL (test code = RBC) 4.52 x10 6/uL 4.70-6.10 L HEMOGLOBIN (test code = HGB) 12.8 g/dL 14.0-18.0 L HEMATOCRIT (test code = HCT) 40.9 % 37.0-49.0 N MEAN CELL VOLUME (test code = MCV) 91 fL 80-94 N MEAN CELL HGB (test code = MCH) 28.3 pg 27-31 N MEAN CELL HGB CONCENTRATION (test code = MCHC) 31.3 g/dL 33-37 L RED CELL DISTRIBUTION WIDTH (test code = RDW) 15.2 % 11.5-15. 5 N PLATELET COUNT (test code = PLT) 132 x10 3/uL 130-400 N MEAN PLATELET VOLUME (test code = MPV) 12.5 fL 9.4-16.4 N NEUTROPHIL % (test code = NT%) 61.3 % 43-65 N IMMATURE GRANULOCYTE % (test code = IG%) 0.2 % 0.0-2.0 N LYMPHOCYTE % (test code = LY%) 19.7 % 20.5-45.5 L MONOCYTE % (test code = MO%) 11.9 % 5.5-11.7 H EOSINOPHIL % (test code = EO%) 6.4 % 0.9-2.9 H BASOPHIL % (test code = BA%) 0.5 % 0.2-1.0 N NUCLEATED RBC % (test code = NRBC%) 0.0 % 0-1.0 N NEUTROPHIL # (test code = NT#) 2.68 x10 3/uL 2.2-4.8 N IMMATURE GRANULOCYTE # (test code = IG#) 0.01 x10 3/uL 0-0.03 N LYMPHOCYTE # (test code = LY#) 0.86 x10 3/uL 1.3-2.9 L MONOCYTE # (test code = MO#) 0.52 x10 3/uL 0.3-0.8 N EOSINOPHIL # (test code = EO#) 0.28 x10 3/uL 0.0-0.2 H BASOPHIL # (test code = BA#) 0.02 x10 3/uL 0.0-0.1 N [id number] 00:52:00* Test Item Value Reference Range Interpretation Comments GLUBED (test code = GLUBED) 203 MG/DL 74-106 H AB HEPATITIS B [id number] 22:04:00* Test Item Value Reference Range Interpretation Comments AB HEPATITIS B SURFACE (test code = HBSAB) POSITIVE CLINICAL INTERPRETATION OF IMMUNE STATUSNEGATIVE: Inconsistent with immunity to HBV infection, less than 5.0 mIU/mL POSITIVE: Consistent with immunity to HBV infection, greater than 10.0 mIU/mL SENT 1 ML SERUM REFRIGERATED TO [facility] B CORE AB [id number] 22:04:00* Test Item Value Reference Range Interpretation Comments HEP B CORE AB TOTAL (test code = HBCAB) Negative Negative Performed At: [facility] [id number] Kyle L MD Ph:[phone] SENT 1 ML SERUM REFRIGERATED TO [facility] [id number] 20:47:00* Test Item Value Reference Range Interpretation Comments GLUBED (test code = GLUBED) 159 MG/DL 74-106 H [id number] 17:59:00* Test Item Value Reference Range Interpretation Comments GLUBED (test code = GLUBED) 208 MG/DL 74-106 H [id number] 12:07:00* Test Item Value Reference Range Interpretation Comments GLUBED (test code = GLUBED) 188 MG/DL 74-106 H [id number] 11:00:00* Test Item Value Reference Range Interpretation Comments CKMB (test code = CKMBT) 1.89 ng/mL 0.5-5.0 N LIPID PROFILE (CORONARY RISK)2019-10-21 11:00:00* Test Item Value Reference Range Interpretation Comments TRIGLYCERIDES (test code = TRIG) 73 mg/dL TRIGLYCERIDES REFERENCE RANGE:Normal: <150 mg/dLBorderline High: 150-199 mg/dLHigh: 200-499 mg/dLVery High: >=500 mg/dL CHOLESTEROL (test code = CHOL) 129 mg/dL CHOLESTEROL REFERENCE RANGE:DESIRABLE: < 200 mg/dLBORDERLINE: 200-239 mg/dLHIGH: >=240 mg/dL HDL CHOLESTEROL (test code = HDL) 44 mg/dL 40-59 N LIPOPROTEIN LDL (test code = LDLC) 55.76 mg/dL 32-99 N CORONARY RISK FACTOR (test code = RISK) 2.93 CHOL/HDL RISK MALE: 1/2 AVG 3.43 FEMALE: 1/2 AVG 3.27 AVG 4.97 AVG 4.44 2X AVG 9.55 2X AVG 7.05 3X AVG 23.39 3X AVG 11.04~~~~~~~~~~~~~~~~~~~~~~~~~~~~~~~~~~~~~~~~~~~~~~~~~~~~~~~~~~~~National Cholesterol Education (NCEP) Guidelines:~~~~~~~~~~~~~~~~~~~~~~~~~~~~~~~~~~~~~~~~~~~~~~~~~~~~~~~~~~~~ HDL Cholesterol<40mg/dL: HDL Cholesterol (Major risk factor for CHD)>60mg/dL: HDL Cholesterol (Negative risk factor for CHD)40-59mg/dL: Borderline Risk LDL Cholesterol<100mg/dL: Desirable LDL-C nhbwiknplyapm835-407kc/dL: Borderline High Risk LDL-C hevttzdgkesyv618-616ms/dL: High risk LDL-C concentration HDL-LDL Cholesterol is affected by a number of factors suchas smoking, age and sex.~~~~~~~~~~~~~~~~~~~~~~~~~~~~~~~~~~~~~~~~~~~~~~~~~~~~~~~~~~~~ [id number] 11:00:00* Test Item Value Reference Range Interpretation Comments PHOSPHOROUS (test code = PHOS) 5.1 mg/dL 2.5-4.5 H [id number] 11:00:00* Test Item Value Reference Range Interpretation Comments MAGNESIUM (test code = MAG) 2.1 mg/dL 1.6-2.3 N LIPID PROFILE (CORONARY RISK)2019-10-21 10:48:00* Test Item Value Reference Range Interpretation Comments TRIGLYCERIDES (test code = TRIG) 73 mg/dL TRIGLYCERIDES REFERENCE RANGE:Normal: <150 mg/dLBorderline High: 150-199 mg/dLHigh: 200-499 mg/dLVery High: >=500 mg/dL CHOLESTEROL (test code = CHOL) 129 mg/dL CHOLESTEROL REFERENCE RANGE:DESIRABLE: < 200 mg/dLBORDERLINE: 200-239 mg/dLHIGH: >=240 mg/dL HDL CHOLESTEROL (test code = HDL) 44 mg/dL 40-59 N LIPOPROTEIN LDL (test code = LDLC) mg/dL 32-99 CORONARY RISK FACTOR (test code = RISK) 2.93 CHOL/HDL RISK MALE: 1/2 AVG 3.43 FEMALE: 1/2 AVG 3.27 AVG 4.97 AVG 4.44 2X AVG 9.55 2X AVG 7.05 3X AVG 23.39 3X AVG 11.04~~~~~~~~~~~~~~~~~~~~~~~~~~~~~~~~~~~~~~~~~~~~~~~~~~~~~~~~~~~~National Cholesterol Education (NCEP) Guidelines:~~~~~~~~~~~~~~~~~~~~~~~~~~~~~~~~~~~~~~~~~~~~~~~~~~~~~~~~~~~~ HDL Cholesterol<40mg/dL: HDL Cholesterol (Major risk factor for CHD)>60mg/dL: HDL Cholesterol (Negative risk factor for CHD)40-59mg/dL: Borderline Risk LDL Cholesterol<100mg/dL: Desirable LDL-C pyqxrxrgnscls355-776jc/dL: Borderline High Risk LDL-C yolbuyznneihn897-608ou/dL: High risk LDL-C concentration HDL-LDL Cholesterol is affected by a number of factors suchas smoking, age and sex.~~~~~~~~~~~~~~~~~~~~~~~~~~~~~~~~~~~~~~~~~~~~~~~~~~~~~~~~~~~~ [id number] 10:48:00* Test Item Value Reference Range Interpretation Comments PHOSPHOROUS (test code = PHOS) 5.1 mg/dL 2.5-4.5 H [id number] 10:48:00* Test Item Value Reference Range Interpretation Comments MAGNESIUM (test code = MAG) 2.1 mg/dL 1.6-2.3 N [id number] 10:20:00* Test Item Value Reference Range Interpretation Comments TROPONIN-I (test code = TROPI) 0.034 ng/mL 0.012-0.033 H Please be advised of the updated reference ranges for the new Chemistry instrumentation. VITROS TROPONIN I CRITERIANORMAL PATIENT W/O CIRCULATING TNI: 0.012-0.033 ng/mLCIRCULATING TNI PRESENT: 0.034-0.119 ng/mL(MAY BE AT RISK OF AMI)AMI DIAGNOSTIC CUTOFF: >/= 0.120 ng/mL~~~~~~~~~~~~~~~~~~~~~~~~~~~~~~~~~~~~~~~~~~~~~~~~~~~~~~~~~~~The use of serial sampling and testing protocol is arecommended practice.An elevated troponin level alone is often not sufficient fordiagnosis of myocardial infarction. Troponin results obtained by different assays may vary.Evaluation of the extent of myocardial damage based onincrease of troponin would be valid only if similarmethodology is used.~~~~~~~~~~~~~~~~~~~~~~~~~~~~~~~~~~~~~~~~~~~~~~~~~~~~~~~~~~~ HGBA1C - GLYCOSYLATED [id number] 10:19:00* Test Item Value Reference Range Interpretation Comments GLYCOSYLATED HEMOGLOBIN (HA1C) (test code = GLYHGB) 4.9 % 0- 5.9 N Current guidelines recommend a treatment goal of <7% fordiabetic patients. A1c may be overestimated in diabeticpatients exhibiting poor control and who are alsoheterozygous or homozygous for HgbS or HgbC. Totalglycohemoglobin is a better indicator of diabetic control inpatients with these hemoglobin variants. [id number] 08:56:00* Test Item Value Reference Range Interpretation Comments GLUBED (test code = GLUBED) 206 MG/DL 74-106 H BASIC METABOLIC [id number] 03:33:00* Test Item Value Reference Range Interpretation Comments SODIUM (test code = NA) 135 mmol/L 137-145 L POTASSIUM (test code = K) 4.4 mmol/L 3.4-5.0 N CHLORIDE (test code = CL) 98 mmol/L 98-107 N CARBON DIOXIDE (test code = CO2) 28 mmol/L 22-30 N GLUCOSE (test code = GLU) 235 mg/dL 74-106 H BLOOD UREA NITROGEN (test code = BUN) 29 mg/dL 9-20 H GLOMERULAR FILTRATION RATE (test code = GFR) 8 >60 L The estimated glomerular filtration rate is computed usingpatient race, age (>18), sex, and serum creatinine. If anyof the needed data elements are missing the Laboratory cannot compute an estimation of the glomerular filtration rate. CREATININE (test code = CREAT) 7.7 mg/dL 0.7-1.3 H CALCIUM (test code = CA) 8.9 mg/dL 8.4-10.2 N CBC W/AUTO [id number] 03:21:00* Test Item Value Reference Range Interpretation Comments WHITE BLOOD CELL (test code = WBC) 3.8 x10 3/uL 5.0-12.0 L RED BLOOD CELL (test code = RBC) 4.07 x10 6/uL 4.70-6.10 L HEMOGLOBIN (test code = HGB) 11.5 g/dL 14.0-18.0 L HEMATOCRIT (test code = HCT) 38.1 % 37.0-49.0 N MEAN CELL VOLUME (test code = MCV) 94 fL 80-94 N MEAN CELL HGB (test code = MCH) 28.3 pg 27-31 N MEAN CELL HGB CONCENTRATION (test code = MCHC) 30.2 g/dL 33-37 L RED CELL DISTRIBUTION WIDTH (test code = RDW) 15.6 % 11.5-15. 5 H PLATELET COUNT (test code = PLT) 118 x10 3/uL 130-400 L MEAN PLATELET VOLUME (test code = MPV) 12.4 fL 9.4-16.4 N NEUTROPHIL % (test code = NT%) 60.4 % 43-65 N IMMATURE GRANULOCYTE % (test code = IG%) 0.3 % 0.0-2.0 N LYMPHOCYTE % (test code = LY%) 22.1 % 20.5-45.5 N MONOCYTE % (test code = MO%) 10.7 % 5.5-11.7 N EOSINOPHIL % (test code = EO%) 5.7 % 0.9-2.9 H BASOPHIL % (test code = BA%) 0.8 % 0.2-1.0 N NUCLEATED RBC % (test code = NRBC%) 0.0 % 0-1.0 N NEUTROPHIL # (test code = NT#) 2.32 x10 3/uL 2.2-4.8 N IMMATURE GRANULOCYTE # (test code = IG#) 0.01 x10 3/uL 0-0.03 N LYMPHOCYTE # (test code = LY#) 0.85 x10 3/uL 1.3-2.9 L MONOCYTE # (test code = MO#) 0.41 x10 3/uL 0.3-0.8 N EOSINOPHIL # (test code = EO#) 0.22 x10 3/uL 0.0-0.2 H BASOPHIL # (test code = BA#) 0.03 x10 3/uL 0.0-0.1 N [id number] 20:10:00* Test Item Value Reference Range Interpretation Comments GLUBED (test code = GLUBED) 252 MG/DL 74-106 H [id number] 17:29:00* Test Item Value Reference Range Interpretation Comments GLUBED (test code = GLUBED) 145 MG/DL 74-106 H [id number] 14:47:00* Test Item Value Reference Range Interpretation Comments GLUBED (test code = GLUBED) 214 MG/DL 74-106 H - MRI BRAIN W/O [id number] 13:40:00 FAX: David Medellin MD [phone] [place]: St: ADM FAX: Juan Luis Julio MD [phone] Name: DUONG HERNANDEZ [facility] : 1955 Age/S: 64/M [address] Unit #: [id number] Loc: C.ICU2 [place] [address] Phys: David Abdalla MD Acct: [id number] Dis Date: Status: ADM IN PHONE #: [phone] Exam Date: 10/20/2019 1234 FAX #: [phone] Reason: seizure EXAMS: CPT CODE: [id number] MRI BRAIN W/O CONTRAST [id number] R16 - MRI BRAIN W/O CONTRAST HISTORY: seizure TECHNIQUE: Multiplanar multisequence MR images of the b rain were obtained without intravenous contrast. COMPARISON: None FINDINGS: A 2.8 x 5.0 x 2.9 cm arachnoid cyst is noted adjacent to the right superior frontal gyrus at the vertex. Ence phalomalacia in the right parietal lobe. There is no abnorm al extra-axial fluid collection. Diffusion-weighted images show no hyperac kelby, acute or early subacute infarction. The ventricles are norm al in size, shape, and position. There are normal signal voids i n the larger intracranial vessels. The paranasal sinuses and masto id air cells are predominantly clear. The marrow signal pattern is within normal limits. IMPRESSION: A large arachnoid cy st is noted adjacent to the right superior frontal gyrus. 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 No acute intracranial abnormaliti es. at 1340 Reported and signed by: Colt Kumari MD CC: David Abdalla MD; Juan Luis Aguirre MD Technologist: Joaquin phillips; Jenny Mayberry Trnscrd Date/Time/By: 10/20/2019 (8560) : By: [email or web address] PAGE 1 Signed Report FAX: David Medellin MD [phone] [place]: St: ADM FAX: Juan Luis Julio MD [phone] Name: DUONG FLORES [facility] : 8 Age/S: 64/M [address] Unit #: [id number] Loc: C.ICU2 [place] [address] Phys: David Abdalla MD Acct: [id number] Dis Date: Status: ADM IN PHONE #: [phone] Exam Date: 10/20/2019 1234 FAX #: [phone] Reason: seizure EXAMS: CPT CODE: [id number] MRI BRAIN W/O CONTRAST 17183 <Continued> Orig Print D/T: S: 10/20/2019 (6134) PAGE 2 Signed Report [id number] 12:39:00* Test Item Value Reference Range Interpretation Comments GLUBED (test code = GLUBED) 172 MG/DL 74-106 H [id number] 08:38:00* Test Item Value Reference Range Interpretation Comments GLUBED (test code = GLUBED) 88 MG/DL 74-106 N BASIC METABOLIC [id number] 04:42:00* Test Item Value Reference Range Interpretation Comments SODIUM (test code = NA) 137 mmol/L 137-145 N POTASSIUM (test code = K) 3.7 mmol/L 3.4-5.0 N CHLORIDE (test code = CL) 99 mmol/L 98-107 N CARBON DIOXIDE (test code = CO2) 29 mmol/L 22-30 N GLUCOSE (test code = GLU) 218 mg/dL 74-106 H BLOOD UREA NITROGEN (test code = BUN) 21 mg/dL 9-20 H GLOMERULAR FILTRATION RATE (test code = GFR) 11 >60 L The estimated glomerular filtration rate is computed usingpatient race, age (>18), sex, and serum creatinine. If anyof the needed data elements are missing the Laboratory cannot compute an estimation of the glomerular filtration rate. CREATININE (test code = CREAT) 5.6 mg/dL 0.7-1.3 H CALCIUM (test code = CA) 8.6 mg/dL 8.4-10.2 N CBC W/AUTO [id number] 04:16:00* Test Item Value Reference Range Interpretation Comments WHITE BLOOD CELL (test code = WBC) 3.8 x10 3/uL 5.0-12.0 L RED BLOOD CELL (test code = RBC) 4.40 x10 6/uL 4.70-6.10 L HEMOGLOBIN (test code = HGB) 12.4 g/dL 14.0-18.0 L HEMATOCRIT (test code = HCT) 40.7 % 37.0-49.0 N MEAN CELL VOLUME (test code = MCV) 93 fL 80-94 N MEAN CELL HGB (test code = MCH) 28.2 pg 27-31 N MEAN CELL HGB CONCENTRATION (test code = MCHC) 30.5 g/dL 33-37 L RED CELL DISTRIBUTION WIDTH (test code = RDW) 15.9 % 11.5-15. 5 H PLATELET COUNT (test code = PLT) 115 x10 3/uL 130-400 L MEAN PLATELET VOLUME (test code = MPV) 12.4 fL 9.4-16.4 N NEUTROPHIL % (test code = NT%) 64.0 % 43-65 N IMMATURE GRANULOCYTE % (test code = IG%) 0.3 % 0.0-2.0 N LYMPHOCYTE % (test code = LY%) 18.6 % 20.5-45.5 L MONOCYTE % (test code = MO%) 10.8 % 5.5-11.7 N EOSINOPHIL % (test code = EO%) 5.8 % 0.9-2.9 H BASOPHIL % (test code = BA%) 0.5 % 0.2-1.0 N NUCLEATED RBC % (test code = NRBC%) 0.0 % 0-1.0 N NEUTROPHIL # (test code = NT#) 2.44 x10 3/uL 2.2-4.8 N IMMATURE GRANULOCYTE # (test code = IG#) 0.01 x10 3/uL 0-0.03 N LYMPHOCYTE # (test code = LY#) 0.71 x10 3/uL 1.3-2.9 L MONOCYTE # (test code = MO#) 0.41 x10 3/uL 0.3-0.8 N EOSINOPHIL # (test code = EO#) 0.22 x10 3/uL 0.0-0.2 H BASOPHIL # (test code = BA#) 0.02 x10 3/uL 0.0-0.1 N [id number] 02:32:00* Test Item Value Reference Range Interpretation Comments GLUBED (test code = GLUBED) 234 MG/DL 74-106 H AB HEPATITIS B [id number] 01:36:00* Test Item Value Reference Range Interpretation Comments AB HEPATITIS B SURFACE (test code = HBSAB) POSITIVE CLINICAL INTERPRETATION OF IMMUNE STATUSNEGATIVE: Inconsistent with immunity to HBV infection, less than 5.0 mIU/mL POSITIVE: Consistent with immunity to HBV infection, greater than 10.0 mIU/mL SENT 1 ML SERUM REFRIGERATED TO [facility] B CORE AB [id number] 01:36:00* Test Item Value Reference Range Interpretation Comments HEP B CORE AB TOTAL (test code = HBCAB) NEGATIVE SENT 1 ML SERUM REFRIGERATED TO [facility] THYROID STIMULATING [id number] 00:41:00* Test Item Value Reference Range Interpretation Comments THYROID STIMULATING HORMONE (test code = TSH) 3.610 mIU/L 0.465-4. 68 N A positive bias may occur for patients taking BIOTINsupplements. [id number] 23:19:00* Test Item Value Reference Range Interpretation Comments AMMONIA (test code = AMM) < 9 umol/L 9-30 L [id number] 12:31:00* Test Item Value Reference Range Interpretation Comments GLUBED (test code = GLUBED) 188 mg/dL 74-106 H Performed by certified bean picker machine operator at [facility] [id number] 11:51:00* Test Item Value Reference Range Interpretation Comments TROPONIN-I (test code = TROPI) 0.027 ng/mL 0-0.045 N COMMENTS TO WHALE TRAINER: COLLECT 3 HOURS AFTER PREVIOUS SAMPLEAG HEPAT B [id number] 10:06:00* Test Item Value Reference Range Interpretation Comments AG HEPAT B SURF (test code = HBSAG) Nonreactive Index Nonreactive COMPREHENSIVE METABOLIC [id number] 09:54:00* Test Item Value Reference Range Interpretation Comments SODIUM (test code = NA) 142 mmol/L 136-145 N POTASSIUM (test code = K) 4.4 mmol/L 3.5-5.1 N CHLORIDE (test code = CL) 104.0 mmol/L 98-107 N CARBON DIOXIDE (test code = CO2) 25.0 mmol/L 21-32 N ANION GAP (test code = GAP) 17.4 10-20 N GLUCOSE (test code = GLU) 242 mg/dL 74-106 H BLOOD UREA NITROGEN (test code = BUN) 33 mg/dL 7-18 H GLOMERULAR FILTRATION RATE (test code = GFR) 6 mL/min >=60 Estimated GFR by using Modified MDRD formula.Chronic kidney disease is defined as either kidney damageor GFR <60 mL/min/1.73 m2 for >3 months. CREATININE (test code = CREAT) 8.80 mg/dL 0.7-1.3 H BUN/CREATININE RATIO (test code = BUN/CREA) 3.8 10-20 L TOTAL PROTEIN (test code = PROT) 7.2 gram/dL 6.4-8.2 N ALBUMIN (test code = ALB) 3.1 g/dL 3.4-5.0 L GLOBULIN (test code = GLOB) 4.1 gram/dL 2.7-4.2 N ALBUMIN/GLOBULIN RATIO (test code = A/G) 0.8 0.75-1.50 N CALCIUM (test code = CA) 8.6 mg/dL 8.5-10.1 N BILIRUBIN TOTAL (test code = BILT) 0.60 mg/dL 0.0-1.0 N SGOT/AST (test code = AST) 17 IUnit/L 15-37 N SGPT/ALT (test code = ALT) 16 IUnit/L 12-78 N ALKALINE PHOSPHATASE TOTAL (test code = ALKP) 83 IUnit/L 45-117 N Note change in reference range due to change in reagent. [id number] 09:54:00* Test Item Value Reference Range Interpretation Comments PHOSPHORUS (test code = PHOS) 5.0 mg/dL 2.5-4.9 H [id number] 09:54:00* Test Item Value Reference Range Interpretation Comments MAGNESIUM (test code = MAG) 2.5 mg/dL 1.8-2.4 H CALCIUM [id number] 09:54:00* Test Item Value Reference Range Interpretation Comments CALCIUM IONIZED (test code = MEMO) 1.10 mmol/L 1.12-1.32 L COMPREHENSIVE METABOLIC [id number] 09:45:00* Test Item Value Reference Range Interpretation Comments SODIUM (test code = NA) 142 mmol/L 136-145 N POTASSIUM (test code = K) 4.4 mmol/L 3.5-5.1 N CHLORIDE (test code = CL) 104.0 mmol/L 98-107 N CARBON DIOXIDE (test code = CO2) mmol/L 21-32 ANION GAP (test code = GAP) 10-20 GLUCOSE (test code = GLU) mg/dL 74-106 BLOOD UREA NITROGEN (test code = BUN) mg/dL 7-18 GLOMERULAR FILTRATION RATE (test code = GFR) mL/min >=60 CREATININE (test code = CREAT) mg/dL 0.7-1.3 BUN/CREATININE RATIO (test code = BUN/CREA) 10-20 TOTAL PROTEIN (test code = PROT) gram/dL 6.4-8.2 ALBUMIN (test code = ALB) g/dL 3.4-5.0 GLOBULIN (test code = GLOB) gram/dL 2.7-4.2 ALBUMIN/GLOBULIN RATIO (test code = A/G) 0.75-1.50 CALCIUM (test code = CA) mg/dL 8.5-10.1 BILIRUBIN TOTAL (test code = BILT) mg/dL 0.0-1.0 SGOT/AST (test code = AST) IUnit/L 15-37 SGPT/ALT (test code = ALT) IUnit/L 12-78 ALKALINE PHOSPHATASE TOTAL (test code = ALKP) IUnit/L 45-117 [id number] 09:45:00* Test Item Value Reference Range Interpretation Comments PHOSPHORUS (test code = PHOS) mg/dL 2.5-4.9 [id number] 09:45:00* Test Item Value Reference Range Interpretation Comments MAGNESIUM (test code = MAG) mg/dL 1.8-2.4 CALCIUM [id number] 09:45:00* Test Item Value Reference Range Interpretation Comments CALCIUM IONIZED (test code = MEMO) 1.10 mmol/L 1.12-1.32 L [id number] 09:42:00* Test Item Value Reference Range Interpretation Comments TROPONIN-I (test code = TROPI) 0.037 ng/mL 0-0.045 N COMMENTS TO WHALE TRAINER: COLLECT 3 HOURS AFTER PREVIOUS SAMPLEB-TYPE NATRIURETIC [id number] 08:40:00* Test Item Value Reference Range Interpretation Comments B-TYPE NATRIURETIC PEPTIDE (test code = BNP) 975.27 pgram/mL 0-100 H [id number] 08:29:00* Test Item Value Reference Range Interpretation Comments GLUBED (test code = GLUBED) 221 mg/dL 74-106 H Performed by certified bean picker machine operator at [facility] COMPREHENSIVE METABOLIC [id number] 08:28:00* Test Item Value Reference Range Interpretation Comments SODIUM (test code = NA) mmol/L 136-145 POTASSIUM (test code = K) mmol/L 3.5-5.1 CHLORIDE (test code = CL) mmol/L 98-107 CARBON DIOXIDE (test code = CO2) mmol/L 21-32 ANION GAP (test code = GAP) 10-20 GLUCOSE (test code = GLU) mg/dL 74-106 BLOOD UREA NITROGEN (test code = BUN) mg/dL 7-18 GLOMERULAR FILTRATION RATE (test code = GFR) mL/min >=60 CREATININE (test code = CREAT) mg/dL 0.7-1.3 BUN/CREATININE RATIO (test code = BUN/CREA) 10-20 TOTAL PROTEIN (test code = PROT) gram/dL 6.4-8.2 ALBUMIN (test code = ALB) g/dL 3.4-5.0 GLOBULIN (test code = GLOB) gram/dL 2.7-4.2 ALBUMIN/GLOBULIN RATIO (test code = A/G) 0.75-1.50 CALCIUM (test code = CA) mg/dL 8.5-10.1 BILIRUBIN TOTAL (test code = BILT) mg/dL 0.0-1.0 SGOT/AST (test code = AST) IUnit/L 15-37 SGPT/ALT (test code = ALT) IUnit/L 12-78 ALKALINE PHOSPHATASE TOTAL (test code = ALKP) IUnit/L 45-117 [id number] 08:28:00* Test Item Value Reference Range Interpretation Comments PHOSPHORUS (test code = PHOS) mg/dL 2.5-4.9 [id number] 08:28:00* Test Item Value Reference Range Interpretation Comments MAGNESIUM (test code = MAG) mg/dL 1.8-2.4 CALCIUM [id number] 08:28:00* Test Item Value Reference Range Interpretation Comments CALCIUM IONIZED (test code = MEMO) 1.10 mmol/L 1.12-1.32 L CBC W/AUTO [id number] 08:13:00* Test Item Value Reference Range Interpretation Comments WHITE BLOOD CELL (test code = WBC) 4.9 K/mm3 4.5-12.5 N RED BLOOD CELL (test code = RBC) 4.22 mill/mm3 4.0-5.8 N HEMOGLOBIN (test code = HGB) 12.1 gram/dL 13.0-17.5 L HEMATOCRIT (test code = HCT) 39.7 % 42.0-52.0 L MEAN CELL VOLUME (test code = MCV) 94.1 fL 80-98 N MEAN CELL HGB (test code = MCH) 28.7 picogram 27.0-33.0 N MEAN CELL HGB CONCETRATION (test code = MCHC) 30.5 gram/dL 33.0-36. 0 L RED CELL DISTRIBUTION WIDTH (test code = RDW) 16.5 % 11.6-16. 2 H RED CELL DISTRIBUTION WIDTH SD (test code = RDW-SD) 56.9 fL 37 .0-51.0 H PLATELET COUNT (test code = PLT) 109 K/mm3 150-450 L MEAN PLATELET VOLUME (test code = MPV) 12.0 fL 6.7-11.0 H NEUTROPHIL % (test code = NT%) 71.1 % 39.0-69.0 H IMMATURE GRANULOCYTE % (test code = IG%) 0.4 % 0.0-5.0 N LYMPHOCYTE % (test code = LY%) 16.6 % 25.0-55.0 L MONOCYTE % (test code = MO%) 9.2 % 0.0-10.0 N EOSINOPHIL % (test code = EO%) 2.3 % 0.0-5.0 N BASOPHIL % (test code = BA%) 0.4 % 0.0-1.0 N NUCLEATED RBC % (test code = NRBC%) 0.0 % 0-0 N NEUTROPHIL # (test code = NT#) 3.46 K/mm3 1.8-7.7 N IMMATURE GRANULOCYTE # (test code = IG#) 0.02 x10 3/uL 0-0.03 N LYMPHOCYTE # (test code = LY#) 0.81 K/mm3 1.0-5.0 L MONOCYTE # (test code = MO#) 0.45 K/mm3 0-0.8 N EOSINOPHIL # (test code = EO#) 0.11 K/mm3 0.0-0.5 N BASOPHIL # (test code = BA#) 0.02 K/mm3 0.0-0.2 N NUCLEATED RBC # (test code = NRBC#) 0.00 K/mm3 0.0-0.1 N CBC W/O [id number] 20:32:00* Test Item Value Reference Range Interpretation Comments WHITE BLOOD CELL (test code = WBC) 4.5 K/mm3 4.5-12.5 N RED BLOOD CELL (test code = RBC) 4.72 mill/mm3 4.0-5.8 N HEMOGLOBIN (test code = HGB) 13.4 gram/dL 13.0-17.5 N HEMATOCRIT (test code = HCT) 43.8 % 42.0-52.0 N MEAN CELL VOLUME (test code = MCV) 92.8 fL 80-98 N MEAN CELL HGB (test code = MCH) 28.4 picogram 27.0-33.0 N MEAN CELL HGB CONCETRATION (test code = MCHC) 30.6 gram/dL 33.0-36. 0 L RED CELL DISTRIBUTION WIDTH (test code = RDW) 16.3 % 11.6-16. 2 H PLATELET COUNT (test code = PLT) 100 K/mm3 150-450 L RESULT VERIFIED BY REPEAT ANALYSIS MEAN PLATELET VOLUME (test code = MPV) 11.7 fL 6.7-11.0 H NO PURPLE TOP V.LAB.CS1 10/18/19 1639- CT HEAD/BRAIN W/O [id number] 17:39:00 Name: DUONG HERNANDEZ [facility] : 1955 Age/S: 64 / M [address] [facility] #: [id number] Loc: [place] [address] Phys: Chuckie Gray MD Acct: [id number] Di s Date: Status: REG ER PHONE #: Exam Date: 10/18/2019 173 FAX #: Reason: Seizure EXAMS: CPT CODE: [id number] CT HEAD/BRAIN W/O CONT 52529 HISTORY: Seizure TECHNIQUE: Noncontrast 2.[address] of the head. Examination acq uired within 24 hours of arrival. Automated exposure control for dose redu ction. COMPARISON: None FINDINGS: No l acerations or contusions of the scalp or facial soft tissues. Calvarium a nd skull base are intact. No acute hemorrhage. No intracranial mas s, mass effect, or midline shift. No effacement of the sulci or rodas-white matter interface. There is age-appropriate cortical atrophy and there are microvascular ischemic changes of the brain parenchyma. Visualized paranasal sinuses are clear. Mastoid air cells and middle ear cavities are clear. Prior lens extraction bilaterally. IMPRESSION: No acute intracranial process. Atrophic and microvascular ischemic changes of the brain parenchyma. Location: [facility] Electronically Signed by Amilcar Carrillo MD on at 1739 Reported and signed by: Amilcar Carrillo MD CC: Pedro Gray MD Technologist :Ev Ware RT(R); SONAL Lofton CTDI: DLP: Trnscb Date/Time: 10/08 (173) [email or web address] Orig Print D/T: S: 10/18/2019 (17 42) PAGE 1 Signed Report - XR CHEST 1 [id number] 17:30:00 FAX: Pedro Gray MD [place]: B St: REG Name: DUONG PEREZ [facility] [birth year] Age/S: 64/M [address] [facility] Unit #: [id number] Loc: [place] [address] Phys: Pedro Gray MD Acct: [id number] Dis Date: Status: REG ER PHONE #: [phone] Exam Date: 10/18/2019 1717 FAX #: [phone] Reason: Seizure EXAMS: CPT CODE: [id number] XR CHEST 1 V 27988 REASON FOR EXAM: Seizure Exam Order Date: 10/18/2019 4:09 PM Ordering M.D.: Pedro Gray MD PROCEDURE: - XR CHEST 1 V COMPARISON: None FINDINGS: There are prominent reticulations throug hout both lungs which may represent vascular engorgement and possible inte rstitial edema. However no confluent airspace disease is seen. The mediastinal silhouette is normal in size. Sternotomy wires are pres ent. There is a vascular stent graft what appears to be the right subclavi an artery versus vein. Upper abdomen is radiographically unremarkable. IMPRESSION: Findings of vascular engorgement with possible interstitial edema. No confluent airspace disease. Loc ation: [facility] at 1730 Reported and signed by: Amilcar Carrillo MD CC: Pedro Gray MD Technologist: CARLOS MIRANDA RT(R)(CT) Trnscrd Date/Time/By: 10/18/19 20 (1730) : By: [email or web address] Orig Print D/T: S: 10/18/2019 (2026) PAGE 1 Signed Report BASIC METABOLIC [id number] 17:10:00* Test Item Value Reference Range Interpretation Comments SODIUM (test code = NA) 141 mmol/L 136-145 N POTASSIUM (test code = K) 3.3 mmol/L 3.5-5.1 L CHLORIDE (test code = CL) 101.0 mmol/L 98-107 N CARBON DIOXIDE (test code = CO2) 29.0 mmol/L 21-32 N ANION GAP (test code = GAP) 14.3 10-20 N GLUCOSE (test code = GLU) 174 mg/dL 74-106 H BLOOD UREA NITROGEN (test code = BUN) 28 mg/dL 7-18 H GLOMERULAR FILTRATION RATE (test code = GFR) 8 mL/min >=60 Estimated GFR by using Modified MDRD formula.Chronic kidney disease is defined as either kidney damageor GFR <60 mL/min/1.73 m2 for >3 months. CREATININE (test code = CREAT) 6.90 mg/dL 0.7-1.3 H BUN/CREATININE RATIO (test code = BUN/CREA) 4.1 10-20 L CALCIUM (test code = CA) 8.6 mg/dL 8.5-10.1 N HEPATIC FUNCTION [id number] 17:10:00* Test Item Value Reference Range Interpretation Comments TOTAL PROTEIN (test code = PROT) 8.1 gram/dL 6.4-8.2 N ALBUMIN (test code = ALB) 3.5 g/dL 3.4-5.0 N GLOBULIN (test code = GLOB) 4.6 gram/dL 2.7-4.2 H ALBUMIN/GLOBULIN RATIO (test code = A/G) 0.8 0.75-1.50 N BILIRUBIN TOTAL (test code = BILT) 0.80 mg/dL 0.0-1.0 N BILIRUBIN DIRECT (test code = BILD) 0.26 mg/dL 0.0-0.20 H SGOT/AST (test code = AST) 23 IUnit/L 15-37 N SGPT/ALT (test code = ALT) 16 IUnit/L 12-78 N ALKALINE PHOSPHATASE TOTAL (test code = ALKP) 90 IUnit/L 45-117 N Note change in reference range due to change in reagent. [id number] 17:10:00* Test Item Value Reference Range Interpretation Comments LIPASE (test code = LIP) 241 U/L 73.0-393.0 N [id number] 17:10:00* Test Item Value Reference Range Interpretation Comments TROPONIN-I (test code = TROPI) <0.015 ng/mL 0-0.045 N [id number] 17:10:00* Test Item Value Reference Range Interpretation Comments ALCOHOL (test code = ALC) < 3 mg/dL 0.0-3.0 N -- INTERPRETIVE DATA NOTE: POSITIVE SCREENING RESULTS SHOULD BE CONSIDERED PRESUMPTIVE.WHEN COLLECTED FOR MEDICAL PURPOSES ONLY. SPECIMEN WILL NOTBE COLLECTED BY CHAIN OF CUSTODY.IF A CONFIRMATION OF POSITIVE RESULTS IS DESIRED, ACONFIRMATION TEST MUST BE REQUESTED BY THE PHYSICIAN AT ANADDITIONAL CHARGE TO THE PATIENT. PROTHROMBIN [id number] 17:07:00* Test Item Value Reference Range Interpretation Comments PROTHROMBIN TIME PATIENT (test code = PTP) 12.3 seconds 9.0-14.0 N INTERNATIONAL NORMAL RATIO (test code = INR) 1.1 0.8-1.2 N The therapeutic range for oral anticoagulant therapy formost indications is an international normalized ratio (INR)of between 2.0 and 3.0. The recommended therapeutic INRrange for various clinical situations is listed below: Clinical Situation INR range Pulmonary e mbolism treatment (2.0-3.0)Venous thrombosis treatmentVenous thrombosis prophylaxis (high risk surgery)Prevention of systemic embolism from: Acute myocardial infarction Valvular heart disease Atrial fibrillation Mechanical prosthetic heart valves (2.5-3.5) IS PATIENT ON ANTICOAGULANTS? NTHROMBOPLASTIN TIME [id number] 17:07:00* Test Item Value Reference Range Interpretation Comments THROMBOPLASTIN TIME PARTIAL (test code = PTT) 37.2 seconds 23.0-37. 0 H IS PATIENT ON ANTICOAGULANTS? NBASIC METABOLIC [id number] 16:56:00* Test Item Value Reference Range Interpretation Comments SODIUM (test code = NA) 141 mmol/L 136-145 N POTASSIUM (test code = K) 3.3 mmol/L 3.5-5.1 L CHLORIDE (test code = CL) 101.0 mmol/L 98-107 N CARBON DIOXIDE (test code = CO2) mmol/L 21-32 ANION GAP (test code = GAP) 10-20 GLUCOSE (test code = GLU) mg/dL 74-106 BLOOD UREA NITROGEN (test code = BUN) mg/dL 7-18 GLOMERULAR FILTRATION RATE (test code = GFR) mL/min >=60 CREATININE (test code = CREAT) mg/dL 0.7-1.3 BUN/CREATININE RATIO (test code = BUN/CREA) 10-20 CALCIUM (test code = CA) mg/dL 8.5-10.1 HEPATIC FUNCTION [id number] 16:56:00* Test Item Value Reference Range Interpretation Comments TOTAL PROTEIN (test code = PROT) gram/dL 6.4-8.2 ALBUMIN (test code = ALB) g/dL 3.4-5.0 GLOBULIN (test code = GLOB) gram/dL 2.7-4.2 ALBUMIN/GLOBULIN RATIO (test code = A/G) 0.75-1.50 BILIRUBIN TOTAL (test code = BILT) mg/dL 0.0-1.0 BILIRUBIN DIRECT (test code = BILD) mg/dL 0.0-0.20 SGOT/AST (test code = AST) IUnit/L 15-37 SGPT/ALT (test code = ALT) IUnit/L 12-78 ALKALINE PHOSPHATASE TOTAL (test code = ALKP) IUnit/L 45-117 [id number] 16:56:00* Test Item Value Reference Range Interpretation Comments LIPASE (test code = LIP) U/L 73.0-393.0 [id number] 16:56:00* Test Item Value Reference Range Interpretation Comments TROPONIN-I (test code = TROPI) ng/mL 0-0.045 [id number] 16:56:00* Test Item Value Reference Range Interpretation Comments ALCOHOL (test code = ALC) mg/dL 0-3 Capillary blood glucose measurement by glucometer (mass/volume)2019-09-30 15:33:00* Test Item Value Reference Range Interpretation Comments Bedside Glucose (test code = 54406-2) 213 70-120 Meter ID: [id number] [facility] CenterBlood leukocytes automated count (number/volume)2019-09-29 05:25:00* Test Item Value Reference Range Interpretation Comments White Blood Count (test code = 6690-2) 5.74 4.8-10.8 [facility] count (number/volume)2019-09-29 05:25:00* Test Item Value Reference Range Interpretation Comments Red Blood Count (test code = 789-8) 3.85 4.3-5.7 [facility] measurement (moles/volume)2019-09-29 05:25:00* Test Item Value Reference Range Interpretation Comments Hemoglobin (test code = 96360-3) 10.7 14.0-18.0 [facility] ClinicAutom[facility] blood hematocrit (volume fraction)2019-09-29 05:25:00* Test Item Value Reference Range Interpretation Comments Hematocrit (test code = 4544-3) 35.4 38.2-49.6 [facility] ClinicAutom[facility] erythrocyte mean corpuscular [id number] 05:25:00* Test Item Value Reference Range Interpretation Comments Mean Corpuscular Volume (test code = 787-2) 91.9 81-99 [facility] ClinicAutom[facility] erythrocyte mean corpuscular hemoglobin (mass per erythrocyte)2019-09-29 05:25:00* Test Item Value Reference Range Interpretation Comments Mean Corpuscular Hemoglobin (test code = 785-6) 27.8 28-32 [facility] ClinicAutom[facility] erythrocyte mean corpuscular hemoglobin concentration measurement (mass/volume)2019-09-29 05:25:00* Test Item Value Reference Range Interpretation Comments Mean Corpuscular Hemoglobin Concent (test code = 786-4) 30.2 31-35 [facility] ClinicRDW [id number] 05:25:00* Test Item Value Reference Range Interpretation Comments Red Cell Distribution Width (test code = 14807-0) 16.6 11.7 -14.4 [facility] Clinic[facility] platelet count (count/volume)2019-09-29 05:25:00* Test Item Value Reference Range Interpretation Comments Platelet Count (test code = 777-3) 136 140-360 [facility] ClinicAutom[facility] blood segmented neutrophil count as percentage of total [id number] 05:25:00* Test Item Value Reference Range Interpretation Comments Neutrophils (%) (Auto) (test code = 13062-4) 64.3 38.7-80.0 [facility] ClinicAutom[facility] lymphocyte count as percentage ot total [id number] 05:25:00* Test Item Value Reference Range Interpretation Comments Lymphocytes (%) (Auto) (test code = 736-9) 19.5 18.0-39.1 [facility] ClinicAutom[facility] blood monocyte count as percentage of total [id number] 05:25:00* Test Item Value Reference Range Interpretation Comments Monocytes (%) (Auto) (test code = 5905-5) 10.8 4.4-11.3 [facility] ClinicAutom[facility] blood eosinophil count as percentage of total [id number] 05:25:00* Test Item Value Reference Range Interpretation Comments Eosinophils (%) (Auto) (test code = 713-8) 4.7 0.0-6.0 [facility] ClinicAutom[facility] blood basophil count as percentage of total [id number] 05:25:00* Test Item Value Reference Range Interpretation Comments Basophils (%) (Auto) (test code = 706-2) 0.5 0.0-1.0 [facility] ClinicFluoroscopic procedure less than one hour [id number] 05:25:00* Test Item Value Reference Range Interpretation Comments IM GRANULOCYTES % (test code = IM GRANULOCYTES %) 0.2 0.0- 1.0 [facility] neutrophil count 2019-09-29 05:25:00* Test Item Value Reference Range Interpretation Comments Neutrophils # (Auto) (test code = 751-8) 3.7 2.1-6.9 [facility] lymphocytes count (number/volume) 2019-09-29 05:25:00* Test Item Value Reference Range Interpretation Comments Lymphocytes # (Auto) (test code = 38566-3) 1.1 1.0-3.2 [facility] monocytes automated count (number/volume)2019-09-29 05:25:00* Test Item Value Reference Range Interpretation Comments Monocytes # (Auto) (test code = 742-7) 0.6 0.2-0.8 [facility] Clinic[facility] eosinophil count 2019-09-29 05:25:00* Test Item Value Reference Range Interpretation Comments Eosinophils # (Auto) (test code = 711-2) 0.3 0.0-0.4 [facility] bas[facility] count (count/volume)2019-09-29 05:25:00* Test Item Value Reference Range Interpretation Comments Basophils # (Auto) (test code = 704-7) 0.0 0.0-0.1 [facility] ClinicFluoroscopic procedure less than one hour [id number] 05:25:00* Test Item Value Reference Range Interpretation Comments Absolute Immature Granulocyte (auto (jo ann t code = Absolute Immature Granulocyte (auto) 0.01 0-0.1 [facility] sodium [facility] (moles/volume)2019-09-29 05:25:00* Test Item Value Reference Range Interpretation Comments Sodium Level (test code = 2951-2) 140 136-145 [facility] potassium measurement (moles/volume)2019-09-29 05:25:00* Test Item Value Reference Range Interpretation Comments Potassium Level (test code = 2823-3) 4.2 3.5-5.1 [facility] chloride measurement (moles/volume)2019-09-29 05:25:00* Test Item Value Reference Range Interpretation Comments Chloride Level (test code = 2075-0) 96 98-107 [facility] or plasma carbon dioxide, total measurement (moles/volume)2019-09-29 05:25:00* Test Item Value Reference Range Interpretation Comments Carbon Dioxide Level (test code = 2028-9) 29 22-29 [facility] anion bpg7532-65-29 05:25:00* Test Item Value Reference Range Interpretation Comments Anion Gap (test code = 94608-7) 19.2 8-16 [facility] urea nitrogen measurement (mass/volume)2019-09-29 05:25:00* Test Item Value Reference Range Interpretation Comments Blood Urea Nitrogen (test code = 3094-0) 40 7-26 [facility] plasma creatinine measurement (mass/volume)2019-09-29 05:25:00* Test Item Value Reference Range Interpretation Comments Creatinine (test code = 2160-0) 9.45 0.72-1.25 [facility] plasma urea nitrogen/creatinine mass ljiiy7800-87-41 05:25:00* Test Item Value Reference Range Interpretation Comments BUN/Creatinine Ratio (test code = 3097-3) 4 6-25 [facility] ClinicEstimated glomerular filtration rate (GFR) evyucxswvgvoj1532-31-87 05:25:00* Test Item Value Reference Range Interpretation Comments Estimat Glomerular Filtration Rate (test code = 454750966) 7 >60 Ranges were taken from the National Kidney Disease Education Program and the [facility] literature.Reference ranges:60 or greater: Bnqacv85-09 ( for 3 consecutive months): Chronic kidney disease 15 or less: Kidney failureFalls Community Hospital and ClinicGlucose jhuigsdxypa5796-92-04 05:25:00* Test Item Value Reference Range Interpretation Comments Glucose Level (test code = CQF4250) 161 74-118 [facility] plasma calcium measurement (mass/volume)2019-09-29 05:25:00* Test Item Value Reference Range Interpretation Comments Calcium Level (test code = 55234-5) 7.6 8.4-10.2 [facility] ClinicFluoroscopic procedure less than one hour nslistpk7921-47-36 05:25:00* Test Item Value Reference Range Interpretation Comments Hemoglobin A1c Percent (test code = Hemoglobin A1c Percent) 4.7 4.0-7.0 [facility] ClinicFluoroscopic procedure less than one hour hhtgslhi9341-35-99 20:01:00* Test Item Value Reference Range Interpretation Comments Coronavirus (PCR) (test code = Coronavirus (PCR)) NOT DETECTED NOTD ETECTED SARS-COV2/RT-PCRNegative results do not preclude SARS-CoV-2 infection and should not be used as the sole basis for patient management decisions. Negative results must be combined with clinical observations, patient history, and epidemiologi elvira information. A false negative result may occur if a specimen is improperly c ollected, transported or handled.The limit of detection for this assay is 250 co pies/mLThe SARS-CoV-2 test is a rapid, real-time RT-PCR test intended for the qu alitative detection of nucleic acid from SARS-CoV-2 in nasopharyngeal swab speci men collected from individuals suspected of COVID-19 by their healthcare provide r. This test has not been Food and Drug Administration (FDA) cleared or approved and has been authorized by FDA under an Emergency Use Authorization (EUA). This EUA will be effective until the declaration that circumstances exist justifying the authorization of the emergency use of in vitro diagnostic test for detection and or diagnosis of COVID-19 is terminated under section 564(b) of the Act, or the the EUA is revoked under 564(g) of the ACT.Testing performed by [facility] [place] [id number] Community Hospital and ClinicCT CHEST AO2063-38-81 18:42:00 [place] [address] Patient Name: DUONG HERNANDEZ MR #: [id number] : 1955 Age/Sex: 63/M Req #: [id number] Adm Physician: ZONIA BURNETT MD Ordered by: ROWENA RAY MD Report #: [id number] Location: MED/SURG3 Room/Bed: [facility] Procedure: [id number] CT/CT CHEST WO Exam Date: 09/28/19 Exam Time: 1812 REPORT STATUS: Signed EXAM: CT Chest WITHOUT con trast 09/28/2019 6:12 PM INDICATION: Left lower lung infiltrate. Chest pain. En d stage renal disease. COMPARISON: 09/26/2019 TECHNIQUE: Chest was scanned utilizing a multidetector helical scanner from the lung apex throu gh the level of the adrenal glands without administration of IV contrast. Abse nce of intravenous contrast decreases sensitivity for detection of lymphadenop athy and vascular pathology. Coronal and sagittal reformations were obtained. Routine protocol was performed. IV CONTRAST: None COMPLICATIONS: Non e RADIATION DOSE: Total DLP: 457 mGy*cm Estimated effecti ve dose: (DLP x 0.014 x size factor) mSv CTDIvol has been reviewed. It is below the limits set by the Radiation Protocol Committee (RPC). Dose m odulation, iterative reconstruction, and/or weight based adjustment of the mA/ kV was utilized to reduce the radiation dose to as low as reasonably achievabl e. FINDINGS: LINES/ TUBES: Sternal wires. Superior vena ca va/right brachiocephalic metallic stent graft. LUNGS AND AIRWAYS: Tree i n bud and scattered groundglass opacity most pronounced in the right upper and lower lung worrisome for multifocal pneumonia without focal consolidation. Ad ditionally, there are mild chronic appearing changes in the lungs. Airways ar e normal. PLEURA: The pleural spaces are clear. HEART AND MEDIASTINUM: The thyroid gland is normal. No mediastinal, hilar or axillary lymphadenopat hy. The heart is normal in size. There is no pericardial effusion. UPPER ABDOMEN: Atrophy and cystic change of the kidneys. BONES: Heterogeneo us appearance to the bones consistent with patient's history of end-stage lucas l disease. SOFT TISSUES: Scattered vascular calcifications. Venous collater als in the anterior soft tissues. IMPRESSION: Tree in bud and scattered groundglass opacity most pronounced in the right upper and lower lung worriso me for multifocal pneumonia without focal consolidation. Additionally, there a re mild chronic appearing changes in the lungs. Heterogeneous appearance to the bones consistent with patient's history of end-stage renal disease. At rophy and cystic change of the kidneys. Venous collaterals in the anterior so ft tissues. Signed by: Dr. Brittny Granado M.D. on 09/28/2019 6:48 PM Dictated By: BRITTNY GRANADO MD, MD 47 Transcribed By: FELECIA on 09/28/191847 COPY TO: ROWENA INFANTE MD Fluoroscopic procedure less than one hour zjiezvqx7773-51-58 06:30:00* Test Item Value Reference Range Interpretation Comments Differential Total Cells Counted (test code = Adalgisa jessicagaviota Total Cells Counted) 100 [facility] blood neutrophils/100 leukocytes 2019-09-28 06:30:00* Test Item Value Reference Range Interpretation Comments Neutrophils % (Manual) (test code = 99217-1) 87 40-74 [facility] blood lymphocytes/100 leukocytes 2019-09-28 06:30:00* Test Item Value Reference Range Interpretation Comments Lymphocytes % (Manual) (test code = 737-7) 6 19-48 [facility] blood monocytes/100 leukocytes 2019-09-28 06:30:00* Test Item Value Reference Range Interpretation Comments Monocytes % (Manual) (test code = 744-3) 5 3.4-9.0 [facility] blood eosinophil count as percentage of total fqdlzloonq6702-52-95 06:30:00* Test Item Value Reference Range Interpretation Comments Eosinophils % (Manual) (test code = 714-6) 2 0-7 [facility] ClinicBlood platelets count by estimate (number/volume)2019-09-28 06:30:00* Test Item Value Reference Range Interpretation Comments Platelet Estimate (test code = 38744-1) ADEQUATE [facility] ClinicPlatelet sgjwamekpj5798-55-75 06:30:00* Test Item Value Reference Range Interpretation Comments Platelet Morphology Comment (test code = 62220-9) NORMAL [facility] polychromasia detection by light cmunfkerab1252-26-73 06:30:00* Test Item Value Reference Range Interpretation Comments Polychromasia (test code = 77487-7) FEW [facility] ClinicBlood anisocytosis detection by light xgtoguitin6928-11-84 06:30:00* Test Item Value Reference Range Interpretation Comments Anisocytosis (test code = 702-1) SLIGHT [facility] ClinicBlood ovalocytes detection by light klecthtyao3503-06-33 06:30:00* Test Item Value Reference Range Interpretation Comments Ovalocytes (test code = 774-0) MODERATE [facility] ClinicRBC twamcbevsc8225-17-19 06:30:00* Test Item Value Reference Range Interpretation Comments Red Cell Morphology Comment (test code = 6742-1) ABNORMAL [facility] plasma total bilirubin measurement (mass/volume)2019-09-28 06:30:00* Test Item Value Reference Range Interpretation Comments Total Bilirubin (test code = 1975-2) 0.6 0.2-1.2 [facility] ClinicFluoroscopic procedure less than one hour rjtddxog5061-91-97 06:30:00* Test Item Value Reference Range Interpretation Comments Aspartate Amino Transf (AST/SGOT) (test code = Aspartate Amino Transf (AST/SGOT)) 21 5-34 [facility] plasma alanine aminotransferase measurement (enzymatic activity/volume)2019-09-28 06:30:00* Test Item Value Reference Range Interpretation Comments Alanine Aminotransferase (ALT/SGPT) (test code = 1742-6) 11 0-55 [facility] plasma protein measurement (mass/volume)2019-09-28 06:30:00* Test Item Value Reference Range Interpretation Comments Total Protein (test code = 2885-2) 7.9 6.5-8.1 [facility] plasma albumin measurement (mass/volume)2019-09-28 06:30:00* Test Item Value Reference Range Interpretation Comments Albumin (test code = 1751-7) 3.4 3.5-5.0 [facility] ClinicPlasma globulin measurement (mass/volume) 2019-09-28 06:30:00* Test Item Value Reference Range Interpretation Comments Globulin (test code = 23396-2) 4.5 2.3-3.5 [facility] plasma albumin/globulin mass jzain4364-13-69 06:30:00* Test Item Value Reference Range Interpretation Comments Albumin/Globulin Ratio (test code = 1759-0) 0.8 0.8-2.0 [facility] plasma alkaline phosphatase measurement (enzymatic activity/volume)2019-09-28 06:30:00* Test Item Value Reference Range Interpretation Comments Alkaline Phosphatase (test code = 6768-6) 94 40-150 [facility] ClinicCT BRAIN GG7440-65-61 00:12:00 [place] [id number] [place] [address] Patient Name: DUONG HERNANDEZ MR #: [id number] : 1955 Age/Sex: 63/M Req #: [id number] Adm Physician: ZONIA BURNETT MD Ordered by: DUONG MONCADA MD Report #: [id number] Location: MED/SURG3 Room/Bed: [facility] Procedure: [id number] CT/CT BRAIN WO Exam Date: 09/27/19 Exam Time: 2330 REPORT STATUS: Signed Examination: CT h ead without contrast Clinical Indication: Lethargic. Technique: Transaxial n oncontrast images from the skull base through the vertex were obtained. Sagitt al and coronal reformatted images were done. Dose modulation, iterative recons truction, and/or weight based adjustment of the mA/kV was utilized to reduce t he radiation dose to as low as reasonably achievable. Comparison: Head CT d ated August 04, 2019. Findings: Scalp: No abnormalities. Bones: Intact. No fractures. No blastic or lytic lesions. Brain sulci: Mild volume loss for patient's age. Ventricles: No hydrocephalus. . Extra-axial space: No acute abnormalities. Unchanged right frontal 4.9cm arachnoid cyst. Pa renchyma: There are subtle patchy areas of low-attenuation within subcortical and periventricular white matter, nonspecific, but could represent microvascu lar ischemic disease. No masses, hemorrhage, or acute or chronic cortical ba sed vascular insults. Suprasellar region: No abnormalities. Craniocervica l junction: The foramen magnum is patent. No Chiari one malformation. In cidental findings: Vascular calcifications of the scalp and cavernous and sup raclinoid internal carotid arteries. Impression: 1. No acute intrac ranial finding when compared to prior exam August 04, 2019. 2. 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 3. Unchanged 4.9cm righ t frontal arachnoid cyst. Signed by: Dr. Magda Stephens M.D. on 12:27 AM Dictated By: MAGDA BUCHANAN MD Electronically Linda d By: MAGDA BUCHANAN MD on 09/28/1926 Transcribed By: FELECIA on 0 09/28/1926 COPY TO: DUONG MONCADA MD Phosphorus hchwlmlwtig0158-85-89 23:02:00* Test Item Value Reference Range Interpretation Comments Phosphorus Level (test code = WKA2833) 2.8 2.3-4.7 [facility] magnesium measurement (mass/volume)2019-09-27 23:02:00* Test Item Value Reference Range Interpretation Comments Magnesium Level (test code = 40274-0) 2.0 1.3-2.1 [facility] hepatitis B virus surface antibody assay by radioimmunoassay (units/volume)2019-09-27 18:00:00* Test Item Value Reference Range Interpretation Comments Hepatitis B Surface Antibody, Quant (test code = 5194-6) 885.7 Immunity>9.9 Status of Immunity Anti-HBs Level Inconsistent with Immunity 0.0 - 9.9Consistent with Immunity >9.9[facility] or plasma hepatitis B virus core antibody detection by fwucjipwsdq9747-11-38 18:00:00* Test Item Value Reference Range Interpretation Comments Hepatitis B Core Total Antibody (test code = 19803-5) Negative Negative [facility] or plasma hepatitis B virus surface antigen detection by xiblqpkvfjv5403-50-87 18:00:00* Test Item Value Reference Range Interpretation Comments Hepatitis B Surface Antigen (test code = 5196-1) Negative Negat xin [facility] or plasma hepatitis B virus core IgM antibody detection by fulemeytkxn3205-90-28 18:00:00* Test Item Value Reference Range Interpretation Comments Hepatitis B Core IgM Antibody (test code = 57465-1) Negative Ne gative Performed at: [facility] [id number] Director: Travon Christensen MD, Phone: [phone] Arts Hospitalerum or plasma creatine kinase measurement (enzymatic activity/volume) 2019-09-27 09:30:00* Test Item Value Reference Range Interpretation Comments Creatine Kinase (test code = 2157-6) 56 30-200 [facility] or plasma creatine kinase MB measurement (mass/volume)2019-09-27 09:30:00* Test Item Value Reference Range Interpretation Comments Creatine Kinase MB (test code = 33898-4) 2.90 0-5.0 [facility] ClinicTroponin I measurement by highly sensitive enzyme vavlixsuryh0943-78-54 09:30:00* Test Item Value Reference Range Interpretation Comments Troponin I (test code = 15449-0) 0.038 0-0.300 [facility] or plasma thyrotropin measurement by detection limit <= 0.005 miu/l (units/volume)2019-09-27 05:30:00* Test Item Value Reference Range Interpretation Comments Thyroid Stimulating Hormone (TSH) (test code = 92914-4) 4.988 0.350-4.940 [facility] plasma triglyceride measurement (mass/volume)2019-09-27 01:20:00* Test Item Value Reference Range Interpretation Comments Triglycerides Level (test code = 2571-8) 55 0-149 [facility] plasma cholesterol measurement (mass/volume)2019-09-27 01:20:00* Test Item Value Reference Range Interpretation Comments Cholesterol Level (test code = 2093-3) 87 0-199 Less than 200 mg/dL Low Dbrb434 - 239 mg/dL Borderline Gwol200 m g/dl and greater High Risk [facility] plasma cholesterol in LDL measurement (mass/volume) 2019-09-27 01:20:00* Test Item Value Reference Range Interpretation Comments LDL Cholesterol (test code = 2089-1) 46 60-130 [facility] plasma cholesterol in HDL measurement (mass/volume)2019-09-27 01:20:00* Test Item Value Reference Range Interpretation Comments HDL Cholesterol (test code = 2085-9) 30 40-60 [facility] or plasma total cholesterol/cholesterol in HDL mass dzlko6762-53-76 01:20:00* Test Item Value Reference Range Interpretation Comments Cholesterol/HDL Ratio (test code = 9830-1) 2.9 3.9-4.7 [facility] ClinicCHEST SINGLE (PORTABLE)2019-09-26 17:15:00 [facility] [address] [place] [address] Patient Name: DUONG HERNANDEZ MR #: [id number] : 1955 Age/Sex: 63/M Req #: [id number] Adm Physician: Ordered by: HORACE MUSTAFA DO Report #: [id number] Location: ER Room/Bed: Procedure: DX/CHEST S GABBY (PORTABLE) Exam Date: 09/26/19 Exam Time: 1640 REPORT STATUS: Signed EXAMINATI ON: CHEST SINGLE (PORTABLE) INDICATION: cp COMPARISON: None FINDINGS: AP view TUBES and LINES: None. LUNGS/PLEUR A: Lungs are well inflated. There is no evidence of pulmonary edema.. Left l ower opacity is seen could be atelectasis or pneumonia in appropriate clinical setting. There is no pleural effusion or pneumothorax. HEART AND MEDIASTIN UM: Cardiac size is mildly enlarged. BONES AND SOFT TISSUES: Median s ternotomy wires are seen and intact. There is a spinal hardware present. No ac kelby osseous lesion. Soft tissues are unremarkable. UPPER ABDOMEN: No lisseth e air under the diaphragm. 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 Procedure: [id number] CT/CT BRAIN W O Exam Date: 08/04/19 Exam Time: 1500 REPORT STATUS: Signed CT BRAIN WO HISTORY: Altered mental status COMPARISON: None. Technique: Noncontrast a xial scans were obtained from skull base to the vertex. Coronal and sagittal reconstructions obtained from the axial data. One or more of the following do se reduction techniques were used: Automated exposure control, adjustment of t he mA and/or kV according to patient size, and/or utilization of iterative rec onstruction technique. DISCUSSION: Scalp/Skull: Diffuse vascular calci fications in the scalp. Otherwise, unremarkable. Brain sulci: Mildly promine nt. Ventricles: Compensatory dilatation. Extra-axial spaces: Focal pro minence of the right frontal parafalcine subarachnoid space measures up to 3.3 x 4.9 x 3 cm (sagittal by AP by transverse). This is likely due to an arachno id cyst. There is mild local mass effect on the medial right frontal lobe. No masses or fluid collections. Carotid and vertebral artery calcifications are present. Parenchyma: Mild bilateral deep white matter hypodensity is likely chronic microvascular ischemic change. Otherwise, no masses, hemorr nancy, or large vascular territory acute infarct. Dural sinuses: No abnorma l densities. Sellar/Suprasellar region: Intact. Skull base: Intact. Incide ntal findings: Bilateral ocular lens replacement. IMPRESSION: 1. No acut e intracranial abnormalities. 2. Mild supratentorial chronic microvascular is chemic change. Mild generalized cerebral volume loss. 3. Approximately 4.9 cm medial right frontal arachnoid cyst. Signed by: Ham Tomas on 08/04/2019 3:59 PM Dictated By: YARI COHEN MD 58 Transcribed By: FELECIA on 1558 COPY TO: BEBE RAMIREZ CIRCUIT BREAKER ASSEMBLER FOOT LEFT AP LAT 2019-08-03 10:19:00 [place] [address] Patient Name: DUONG HERNANDEZ MR #: [id number] : 1955 Age/Sex: 63/M Req #: [id number] Adm Physician: ZONIA BURNETT MD Ordered by: SAVANNA MO DPM Report #: [id number] Location: MED/SURG2 Room/Bed: 204 Procedure: [id number] DX/FOOT LEFT AP LAT Exam Date: 08/03/19 Exam Time: 0830 REPORT STATUS: Signed X-ray left foot AP and lateral Comparison: 07/29/2019 History: Amputation Findings: T he patient 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 There is also amputation of the distal lateral aspect of the first metatarsal. There is soft tissue swelling at the surgical site. There is no radiopaque foreign body. There is no soft tissue air. The bones are osteopenic. Atherosclerotic calcification of the distal tibial and pedal vessels is visualized. Impre ssion: Status post amputation at the metatarsophalangeal joints and of the dis genia lateral aspect of the first metatarsal. Signed by: Michael Vallejo MD on 08/03/2019 10:23 AM Dictated By: MICHAEL VALLEJO MD 1023 Transcribed By: FELECIA on 08/03/19 1 023 COPY TO: SAVANNA MO DPM Bacteria identification in wound by indnody1910-13-18 07:35:00* Test Item Value Reference Range Interpretation Comments Wound Culture (test code = 6462-6) PROTEUS VULGARIS [facility] ClinicProthrombin time (PT) in platelet poor plasma by coagulation fpwdv0869-53-65 19:55:00* Test Item Value Reference Range Interpretation Comments Prothrombin Time (test code = 5902-2) 14.5 11.9-14.5 [facility] ClinicINR in Platelet poor plasma by Coagulation jzrcq2978-88-04 19:55:00* Test Item Value Reference Range Interpretation Comments Prothromb Time International Ratio (test code = 6301-6) 1.06 Oral Anticoagulant Therapy INR Values:1. Low Intensity Therapy 1.5 - 2.02 . Moderate Intensity Therapy 2.0 - 3.03. High Intensity Therapy(1) 2.5 - 3. 54. High Intensity Therapy(2) 3.0 - 4.05. Panic Value INR > 5.0 [facility] ClinicManual blood band neutrophils form/100 eucwnxcrwn5866-62-56 04:50:00* Test Item Value Reference Range Interpretation Comments Band Neutrophils % (test code = 764-1) 3 [facility] ClinicFOOT LEFT LPMZZPUB8467-31-98 19:04:00 [facility] [address] [place] [address] Patient Name: DUONG HERNANDEZ MR #: [id number] : 1955 Age/Sex: 63/M Req #: [id number] Adm Physician: ZONIA BURNETT MD Ordered by: HORACE MUSTAFA DO Report #: [id number] Location: [facility] Room/Bed: [place] [address] Procedure: [id number] DX/FOOT LE FT COMPLETE Exam Date: 07/29/19 Exam Time: 182 REPORT STATUS: Signed Exam: Left foot series, 3 views. Clinical History: Bone infection, suspect osteomyeli tis Comparison: None. Findings: 3 views of the left foot. There is dec reased bone mineralization. Negative for acute, displaced fracture or dislocat ion. Amputation of the first toe at the level of the mid diaphysis of the prox imal phalanx. Questionable cortical erosion in the distal tip of the distal ph alanx of the second toe. Cortical loss at the lateral aspect of the base of th e second toe middle phalanx. No other definite areas of cortical erosion or de struction. Vascular calcifications. Soft tissue swelling in the dorsal aspe ct of the foot. Impression: 1. Findings in the second toe middle phala nx and possibly distal phalanx highly suspicious for osteomyelitis. Si gned by: Dr. Patrick Jimenez M.D. on 07/29/2019 7:08 PM Dictated By: ALEX JIMENEZ MD 07 T ranscribed By: FELECIA on 07/29/191907 COPY TO: HORACE MUSTAFA DO Activated partial thromboplastin time (aPTT) in platelet poor plasma by coagulation ubmpn1759-52-80 15:00:00* Test Item Value Reference Range Interpretation Comments Activated Partial Thromboplast Time (test code = 88277-8) 43.8 23.8-35.5 [facility] ClinicFluoroscopic procedure less than one hour dtinnpbo7903-59-07 15:00:00* Test Item Value Reference Range Interpretation Comments Lactic Acid Level (test code = Lactic Acid Level) 1.7 0.5- 2.0 [facility] ClinicBlood rktywjt2823-95-59 15:00:00* Test Item Value Reference Range Interpretation Comments Blood Culture (test code = 16418604) NO GROWTH AFTER 5 DAYS, FINAL REPORT [facility] ClinicBedside Zksttyg9165-59-26 08:02:00* Test Item Value Reference Range Interpretation Comments Bedside Glucose (test code = 72785-4) 118 70-120 Meter ID: [id number] Park Regional Medical CenterWhite Blood Count 2019-06-22 05:59:00* Test Item Value Reference Range Interpretation Comments White Blood Count (test code = 6690-2) 13.15 4.8-10.8 H [facility] ClinicRed Blood Tqyar9376-29-81 05:59:00* Test Item Value Reference Range Interpretation Comments Red Blood Count (test code = 789-8) 2.98 4.3-5.7 L [facility] ClinicHemoglobin2020-04-14 05:59:00* Test Item Value Reference Range Interpretation Comments Hemoglobin (test code = 25237-7) 8.8 14.0-18.0 L [facility] [facility] 05:59:00* Test Item Value Reference Range Interpretation Comments Hematocrit (test code = 4544-3) 27.8 38.2-49.6 L [facility] ClinicMean Corpuscular Lhsipy7022-58-87 05:59:00* Test Item Value Reference Range Interpretation Comments Mean Corpuscular Volume (test code = 787-2) 93.3 81-99 [facility] ClinicMean Corpuscular Cprdwgpbfl4070-46-01 05:59:00* Test Item Value Reference Range Interpretation Comments Mean Corpuscular Hemoglobin (test code = 785-6) 29.5 28-32 [facility] ClinicMean Corpuscular Hemoglobin Concent 2019-06-22 05:59:00* Test Item Value Reference Range Interpretation Comments Mean Corpuscular Hemoglobin Concent (test code = 786-4) 31.7 31-35 [facility] ClinicRed Cell Distribution Vcxti6425-15-51 05:59:00* Test Item Value Reference Range Interpretation Comments Red Cell Distribution Width (test code = 56854-9) 15.0 11.7 -14.4 H [facility] ClinicPlatelet Uoduw2109-78-51 05:59:00* Test Item Value Reference Range Interpretation Comments Platelet Count (test code = 777-3) 263 140-360 [facility] ClinicNeutrophils (%) (Auto)2019-06-22 05:59:00 * Test Item Value Reference Range Interpretation Comments Neutrophils (%) (Auto) (test code = 99674-0) 73.9 38.7-80.0 [facility] ClinicLymphocytes (%) (Auto)2019-06-22 05:59:00 * Test Item Value Reference Range Interpretation Comments Lymphocytes (%) (Auto) (test code = 736-9) 7.8 18.0-39.1 L [facility] ClinicMonocytes (%) (Auto)2019-06-22 05:59:00* Test Item Value Reference Range Interpretation Comments Monocytes (%) (Auto) (test code = 5905-5) 9.0 4.4-11.3 [facility] ClinicEosinophils (%) (Auto)2019-06-22 05:59:00 * Test Item Value Reference Range Interpretation Comments Eosinophils (%) (Auto) (test code = 713-8) 8.3 0.0-6.0 H [facility] ClinicBasophils (%) (Auto)2019-06-22 05:59:00* Test Item Value Reference Range Interpretation Comments Basophils (%) (Auto) (test code = 706-2) 0.5 0.0-1.0 [facility] ClinicIM GRANULOCYTES %2019-06-22 05:59:00* Test Item Value Reference Range Interpretation Comments IM GRANULOCYTES % (test code = IM GRANULOCYTES %) 0.5 0.0- 1.0 [facility] ClinicNeutrophils # (Auto)2019-06-22 05:59:00* Test Item Value Reference Range Interpretation Comments Neutrophils # (Auto) (test code = 751-8) 9.7 2.1-6.9 H [facility] ClinicLymphocytes # (Auto)2019-06-22 05:59:00* Test Item Value Reference Range Interpretation Comments Lymphocytes # (Auto) (test code = 91486-9) 1.0 1.0-3.2 [facility] ClinicMonocytes # (Auto)2019-06-22 05:59:00* Test Item Value Reference Range Interpretation Comments Monocytes # (Auto) (test code = 742-7) 1.2 0.2-0.8 H [facility] ClinicEosinophils # (Auto)2019-06-22 05:59:00* Test Item Value Reference Range Interpretation Comments Eosinophils # (Auto) (test code = 711-2) 1.1 0.0-0.4 H [facility] ClinicBasophils # (Auto)2019-06-22 05:59:00* Test Item Value Reference Range Interpretation Comments Basophils # (Auto) (test code = 704-7) 0.1 0.0-0.1 [facility] ClinicAbsolute Immature Granulocyte (auto 2019-06-22 05:59:00* Test Item Value Reference Range Interpretation Comments Absolute Immature Granulocyte (auto (jo ann t code = Absolute Immature Granulocyte (auto) 0.07 0-0.1 [facility]odium Guomz0149-30-90 05:58:00* Test Item Value Reference Range Interpretation Comments Sodium Level (test code = 2951-2) 136 136-145 [facility] ClinicPotassium Rwgqt6540-40-57 05:58:00* Test Item Value Reference Range Interpretation Comments Potassium Level (test code = 2823-3) 3.8 3.5-5.1 [facility] ClinicChloride Qfsbl0772-62-46 05:58:00* Test Item Value Reference Range Interpretation Comments Chloride Level (test code = 2075-0) 98 98-107 [facility] ClinicCarbon Dioxide Yjkob4480-62-90 05:58:00* Test Item Value Reference Range Interpretation Comments Carbon Dioxide Level (test code = 2028-9) 27 22-29 [facility] ClinicAnion Cmq3013-11-05 05:58:00* Test Item Value Reference Range Interpretation Comments Anion Gap (test code = 12965-1) 14.8 8-16 [facility] ClinicBlood Urea Eyqjigdg3468-37-68 05:58:00* Test Item Value Reference Range Interpretation Comments Blood Urea Nitrogen (test code = 3094-0) 26 7-26 [facility] ClinicCreatinine2020-04-14 05:58:00* Test Item Value Reference Range Interpretation Comments Creatinine (test code = 2160-0) 6.43 0.72-1.25 H [facility] ClinicBUN/Creatinine Coots4869-11-22 05:58:00* Test Item Value Reference Range Interpretation Comments BUN/Creatinine Ratio (test code = 3097-3) 4 6-25 L [facility] ClinicEstimat Glomerular Filtration Rate 2019-06-22 05:58:00* Test Item Value Reference Range Interpretation Comments Estimat Glomerular Filtration Rate (test code = 600774707) 11 >60 L Ranges were taken from the National Kidney Disease Education Program and the [facility] Kid[facility] Foundation literature.Reference ranges:60 or greater: Njqzcl45-61 ( for 3 consecutive months): Chronic kidney disease 15 or less: Kidney failureFalls Community Hospital and ClinicGlucose Cuift4356-92-66 05:58:00* Test Item Value Reference Range Interpretation Comments Glucose Level (test code = RHQ3842) 55 74-118 LL Results repeated and called to BERNARD WELSH RN at 0556 on 06/22/19 by Prachi wallace Read back and verified.[facility] ClinicCalcium Level 2019-06-22 05:58:00* Test Item Value Reference Range Interpretation Comments Calcium Level (test code = 84697-4) 7.3 8.4-10.2 L [facility] Hospitaltool Occult Nvjdq3285-05-16 12:30:00* Test Item Value Reference Range Interpretation Comments Stool Occult Blood (test code = 2335-8) POSITIVE NEGATIVE H [facility] Hospitaltool gastrointestinal hemoglobin knypoushi5896-26-29 11:30:00* Test Item Value Reference Range Interpretation Comments Stool Occult Blood (test code = 2335-8) POSITIVE NEGATIVE [facility] ClinicAlkaline Uyekpixcxwj6506-99-78 07:28:00* Test Item Value Reference Range Interpretation Comments Alkaline Phosphatase (test code = 6768-6) 83 40-150 [facility] ClinicTotal Slepfytab9949-95-24 07:27:00* Test Item Value Reference Range Interpretation Comments Total Bilirubin (test code = 1975-2) 0.4 0.2-1.2 [facility] ClinicAspartate Amino Transf (AST/SGOT) 2019-06-18 07:27:00* Test Item Value Reference Range Interpretation Comments Aspartate Amino Transf (AST/SGOT) (test code = Aspartate Amino Transf (AST/SGOT)) 24 5-34 [facility] ClinicAlanine Aminotransferase (ALT/SGPT) 2019-06-18 07:27:00* Test Item Value Reference Range Interpretation Comments Alanine Aminotransferase (ALT/SGPT) (test code = 1742-6) 7 0-55 [facility] ClinicTotal Uqabmhp5431-50-50 07:27:00* Test Item Value Reference Range Interpretation Comments Total Protein (test code = 2885-2) 6.4 6.5-8.1 L [facility] ClinicAlbumin2020-04-10 07:27:00* Test Item Value Reference Range Interpretation Comments Albumin (test code = 1751-7) 1.7 3.5-5.0 L [facility] ClinicGlobulin2020-04-10 07:27:00* Test Item Value Reference Range Interpretation Comments Globulin (test code = 18894-2) 4.7 2.3-3.5 H [facility] ClinicAlbumin/Globulin Mmfaj1959-17-49 07:27:00 * Test Item Value Reference Range Interpretation Comments Albumin/Globulin Ratio (test code = 1759-0) 0.4 0.8-2.0 L [facility] ClinicPhosphorus Fljul1558-61-46 06:32:00* Test Item Value Reference Range Interpretation Comments Phosphorus Level (test code = XXP7238) 2.8 2.3-4.7 [facility] ClinicMagnesium Sczup8166-14-91 06:24:00* Test Item Value Reference Range Interpretation Comments Magnesium Level (test code = 13989-5) 1.9 1.3-2.1 [facility] ClinicHepatitis B Surface Aurzgpf8244-76-71 08:02:00* Test Item Value Reference Range Interpretation Comments Hepatitis B Surface Antigen (test code = 5196-1) Negative Negat xin Performed at: - [facility] [id number] Director: Travon Christensen MD, Phone: [phone] Community Hospital and ClinicWound Trtccsj5705-75-22 08:35:00* Test Item Value Reference Range Interpretation Comments Wound Culture (test code = 6462-6) No Result Data Provided [facility] ClinicDifferential Total Cells Counted 2019-06-14 07:37:00* Test Item Value Reference Range Interpretation Comments Differential Total Cells Counted (test code = Differen tial Total Cells Counted) 100 [facility] ClinicNeutrophils % (Manual)2019-06-14 07:37:00 * Test Item Value Reference Range Interpretation Comments Neutrophils % (Manual) (test code = 88809-3) 88 40-74 H [facility] ClinicLymphocytes % (Manual)2019-06-14 07:37:00 * Test Item Value Reference Range Interpretation Comments Lymphocytes % (Manual) (test code = 737-7) 7 19-48 L [facility] ClinicMonocytes % (Manual)2019-06-14 07:37:00* Test Item Value Reference Range Interpretation Comments Monocytes % (Manual) (test code = 744-3) 5 3.4-9.0 [facility] ClinicPlatelet Fggrolci7038-09-99 07:37:00* Test Item Value Reference Range Interpretation Comments Platelet Estimate (test code = 93890-1) ADEQUATE [facility] ClinicPlatelet Morphology Qjccgru0795-31-07 07:37:00* Test Item Value Reference Range Interpretation Comments Platelet Morphology Comment (test code = 68601-1) NORMAL [facility] ClinicRed Cell Morphology Wmlaebf9505-87-57 07:37:00* Test Item Value Reference Range Interpretation Comments Red Cell Morphology Comment (test code = 6742-1) NORMAL [facility] ClinicFOOT RIGHT AP QCV7980-06-59 20:03:00 [facility] [address] [place] [address] Patient Name: DUONG HERNANDEZ MR #: [id number] : 1955 Age/Sex: 63/M Req #: [id number] Adm Physician: ZONIA BURNETT MD Ordered by: SAVANNA MO DPHam Report #: [id number] Location: MED/SURG2 Room/Bed: [facility] Procedure: [id number] DX/ FOOT RIGHT AP LAT Exam Date: [...] 06/11/192012 COPY TO: SAVANNA MO DPM Prothrombin Yufa5997-55-23 17:35:00* Test Item Value Reference Range Interpretation Comments Prothrombin Time (test code = 5902-2) 14.4 11.9-14.5 [facility] ClinicProthromb Time International Ratio 2019-06-11 17:35:00* Test Item Value Reference Range Interpretation Comments Prothromb Time International Ratio (test code = 6301-6) 1.05 Oral Anticoagulant Therapy INR Values:1. Low Intensity Therapy 1.5 - 2.02 . Moderate Intensity Therapy 2.0 - 3.03. High Intensity Therapy(1) 2.5 - 3. 54. High Intensity Therapy(2) 3.0 - 4.05. Panic Value INR > 5.0 [facility] ClinicHepatitis B Surface Antibody, Quant 2019-06-11 07:51:00* Test Item Value Reference Range Interpretation Comments Hepatitis B Surface Antibody, Quant (test code = 5194-6) 967.7 Immunity>9.9 Status of Immunity Anti-HBs Level Inconsistent with Immunity 0.0 - 9.9Consistent with Immunity >9.9[facility] Be Hzfumlk1124-34-29 07:51:00* Test Item Value Reference Range Interpretation Comments Hepatitis Be Antigen (test code = 28778-6) Negative Negative [facility] ClinicHepatitis B Core Total Mkaxzyig5037-94-84 07:51:00* Test Item Value Reference Range Interpretation Comments Hepatitis B Core Total Antibody (test code = 79743-6) Negative Negative Performed at: [facility] [id number] Director: Travon Christensen MD, Phone: [phone] Community Hospital and ClinicC-Reactive Imujdma4918-76-37 06:16:00* Test Item Value Reference Range Interpretation Comments C-Reactive Protein (test code = 1987-) 345 0-10 H Performed at: [facility] [id number] Director: Travon Christensen MD, Phone: [phone] Community Hospital and ClinicBacteria identification in wound by prckvhm0970-88-53 03:10:00* Test Item Value Reference Range Interpretation Comments Wound Culture (test code = 6462-6) PSEUDOMONAS AERUGINOSA [facility] Hospitalerum hepatitis B virus e antigen detection by enzyme ohummmeezzt8024-74-66 14:30:00* Test Item Value Reference Range Interpretation Comments Hepatitis Be Antigen (test code = 50882-0) Negative Negative [facility] Hospitalerum or plasma C reactive protein measurement (mass/volume)2019-06-10 14:30:00* Test Item Value Reference Range Interpretation Comments C-Reactive Protein (test code = 1987-5) 345 0-10 Performed at: [address] [id number] Director: Travon Christensen MD, Phone: [phone] Community Hospital and ClinicThyroid Stimulating Hormone (TSH)2019-06-10 06:12:00* Test Item Value Reference Range Interpretation Comments Thyroid Stimulating Hormone (TSH) (test code = 59015-6) 6.111 0.350-4.940 H [facility] ClinicErythrocyte Sedimentation Vino2794-32-15 05:56:00* Test Item Value Reference Range Interpretation Comments Erythrocyte Sedimentation Rate (test code = 4537-7) 124 0- 13 H [facility] ClinicTriglycerides Xrptm1672-20-07 05:51:00* Test Item Value Reference Range Interpretation Comments Triglycerides Level (test code = 2571-8) 99 0-149 [facility] ClinicCholesterol Kdrlj2081-25-22 05:51:00* Test Item Value Reference Range Interpretation Comments Cholesterol Level (test code = 2093-3) 96 0-199 Less than 200 mg/dL Low Xxfp307 - 239 mg/dL Borderline Sktl551 m g/dl and greater High Risk [facility] ClinicLDL Lnafafhsftm3909-56-55 05:51:00* Test Item Value Reference Range Interpretation Comments LDL Cholesterol (test code = 2089-1) 55 60-130 L [facility] ClinicHDL Ymwhsupbdvq5008-38-38 05:51:00* Test Item Value Reference Range Interpretation Comments HDL Cholesterol (test code = 2085-9) 21 40-60 L [facility] ClinicCholesterol/HDL Plzcj2048-76-52 05:51:00 * Test Item Value Reference Range Interpretation Comments Cholesterol/HDL Ratio (test code = 9830-1) 4.6 3.9-4.7 [facility] ClinicHemoglobin A1c Owalamt0629-17-21 05:41:00 * Test Item Value Reference Range Interpretation Comments Hemoglobin A1c Percent (test code = Hemoglobin A1c Percent) 8.3 4.0-7.0 H [facility] ClinicActivated Partial Thromboplast Time 2019-06-10 05:40:00* Test Item Value Reference Range Interpretation Comments Activated Partial Thromboplast Time (test code = 30528-9) 39.6 23.8-35.5 H [facility] ClinicErythrocyte sedimentation rate by Westergren jvnyou0487-06-85 05:00:00* Test Item Value Reference Range Interpretation Comments Erythrocyte Sedimentation Rate (test code = 4537-7) 124 0- 13 [facility] ClinicCHEST 2 SBWYN8271-45-38 22:51:00 [facility] [address] [address] Patient Name: DUONG HERNANDEZ MR #: [id number] : 1955 Age/Sex: 63/M Req #: [id number] Adm Physician: ZONIA BURNETT MD Ordered by: BEBE RAMIREZ CIRCUIT BREAKER ASSEMBLER Report #: [id number] Location: MED/SURG2 Room/Bed: [facility] Procedure: [id number] D X/CHEST 2 VIEWS Exam Date: 06/09/19 [...] on 06/09/2019 10:54 PM Dictated By: ADÁN NEIR MD 53 Transcribed By: FELECIA on 06/09/192253 CO PY TO: ASHLEYBEBE NP FOOT RIGHT KCGRAKQW1833-76-06 22:45:[address] [address] Patient Name: DUONG HERNANDEZ MR #: [id number] : 1955 Age/Sex: 63/M Req #: [id number] Adm Physician: ZONIA BURNETT MD Ordered by: SAVANNA MO DPM Report #: [id number] [facility]: [facility] Room/Bed: [facility] Procedure: [id number] DX/ FOOT RIGHT COMPLETE Exam Date: 06/09/19 Exam Time: 2 200 REPORT STATUS: Signed Foot c omplete CPT code: 81398 Indication: Wound at bottom of foot with [...] COPY TO: SAVANNA MO DPM FOOT LEFT BCQIVMOE4058-79-84 22:40:00 [address] [address] Patient Name: DUONG HERNANDEZ MR #: [id number] : 1955 Age/Sex: 63/M Req #: [id number] Adm Physician: ZONIA BURNETT MD Ordered by: SAVANNA MO DPM Report #: [id number] Location: MED/SURG2 Room/Bed: [facility] Procedure: [id number] DX/ FOOT LEFT COMPLETE Exam Date: 06/09/19 Exam Time: REPORT STATUS: Signed Foot co mplete CPT code: 01262 Indication: Left foot wound with drainage A BSCESS, GANGRENE [id number] Technique: A.P., oblique and lateral v iews of the left foot obtained. 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 Occlusion and/or stenosis of art [...] procedure called, the patient was placed on e cardiac catheterizationtable. Both groins were cleaned [...] was utilized for access. Next, using a 4-Ecuadorean Contra catheterand a 0.035 Iron exchange wire, the right iliac artery was [...] utilize aspecific catheter other th an the 5-Ecuadorean sheath for this. All studies weredone under [...] to his ongoing pain, he will likely qlrlujomiytt-kke-pxce amputation as t here is sufficient flow to facilitate woundhealing. I have already communicated this to the patient's attendingcardiologist, Dr. Angel Lugo.[facility] with platelet and doibhapqywaz8206-09-64 07:45:51* Test Item Value Reference Range Interpretation Comments WBC (test code = 06670-9) 7.48 4.50- 11.00 k/uL RBC (test code = 48083-6) 3.07 m/uL 4.4-6 L HGB (test code = 718-7) 9.0 g/dL 14-18 L HCT (test code = 4544-3) 29.1 % 41-51 L MCV (test code = 787-2) 94.8 fL 82-100 MCH (test code = 785-6) 29.3 pg 27-34 MCHC (test code = 786-4) 30.9 g/dL 31-37 L RDW - SD (test code = 72937-7) 47.1 fL 37-55 MPV (test code = 20232-6) 11.7 fL 8.8-13.2 Platelet count (test code = 14709-3) 172 150- 400 k/uL Nucleated RBC (test code = 40831-2) 0.00 /100 WBC Neutrophils (test code = 26261-9) 73.8 % 39-69 H Lymphocytes (test code = 43462-6) 11.8 % 25-45 L Monocytes (test code = 19084-4) 9.0 % 0-10 Eosinophils (test code = 00426-4) 4.4 % 0-5 Basophils (test code = 05133-5) 0.5 % 0-1 Immature granulocytes (test code = 19390-4) 0.5 % 0-1 "Immature granulocytes" (promyelocytes, myelocytes, metamyelocytes) Lab Interpretation (test code = 21383-4) Abnormal [place] MethodistSmear kwywut9939-14-61 07:45:51* Test Item Value Reference Range Interpretation Comments Platelet slide review (test code = 82466-6) Gary adequate Anisocytosis (test code = 702-1) Moderate Polychromasia (test code = 78900-5) Moderate Ovalocytes (test code = 774-0) Moderate Enlarged platelets (test code = 77299-7) Moderate A Giant platelets (test code = 5908-9) Occasional Lab Interpretation (test code = 64295-9) Abnormal [place] MethodistPOC bzalv7913-70-28 15:33:31* Test Item Value Reference Range Interpretation Comments POC sodium (test code = 2947-0) 138 mmol/L 135-148 POC potassium (test code = 6298-4) 4.1 mmol/L 3.5-5 POC chloride (test code = 2069-3) 96 mmol/L 99-109 L POC CO2 (test code = 69359-3) 31 mmol/L 24-31 POC glucose (test code = 2339-0) 182 mg/dL 65-99 H POC BUN (test code = 6299-2) 21 mg/dL 8-24 POC creatinine (test code = 94624-4) 6.5 mg/dl 0.7-1.2 H POC hematocrit (test code = 4544-3) 31 % 41-51 L POC anion gap (test code = 5067881) 16 mmol/L 8-20 Intern Product Marketing Manager Name: Surya Junior CDevice ID: [id number] Lab Interpretation (test code = 52622-2) Abnormal [place] MethodistEstimated EXT0261-82-48 15:33:31* Test Item Value Reference Range Interpretation Comments Estimated GFR (test code = 60671-9) 10 mL/min/1.73 m2 A Catergory Units InterpretationG1 >=90 Normal or highG2 60-89 Mildly erlrwkqfzQ0p 45-59 Mildly to moderately gzhnbgmjqB0o 30-44 Moderately to severely decreasedG4 15-29 Severely decreasedG5 <15 Kidney failureThe eGFR was calculated using the Chronic Kidney Disease Epidemiology Collaboration (CKD-EPI) equation. Interpretation is based on recommendations of the National Kidney Foundation-Kidney Disease Outcomes Quality Initiative (NKF-KDOQI) published in 2014. Lab Interpretation (test code = 74579-1) Abnormal [place] MethodistBasic metabolic ivcke2646-37-33 09:21:37* Test Item Value Reference Range Interpretation Comments Sodium (test code = 2951-2) 138 135- 148 mEq/L Potassium (test code = 2823-3) 5.1 3.5- 5.0 mEq/L H Chloride (test code = 2075-0) 96 98- 112 mEq/L L CO2 (test code = 2028-9) 23 24- 31 mEq/L L Anion gap (test code = 47288-0) 19@ANIO 7- 15 mEq/L H BUN (test code = 3094-0) 53 mg/dL 8-23 H Creatinine (test code = 2160-0) 11.08 mg/dL 0.7-1.2 H Glucose (test code = 2345-7) 228 mg/dL 65-99 H Calcium (test code = 88817-4) 8.4 mg/dL 8.8-10.2 L Lab Interpretation (test code = 59659-8) Abnormal [place] MethodistUs carotid fezrzj2307-09-93 16:30:00Interface, Radiology Results In - 05/01/2019 4:30 PM [facility] Vascular Ultrasound Laboratory Carotid Artery Duplex Report [address] [address], [place] [address] For quality control clerk purposes, the categorization of the degree of the stenosis of this exam is based on criteria described in the IAC carotid stenosis grading white paper( www.intersocietal.org/Vascular) and Kimberly Nascimento., Angelia Baum., et al. Carotid artery stenosis: christensen-scale and Doppler US diagnosis--Society of Radiologists in Ultrasound Consensus C onference. Radiology. 2003 Nov; 229(2):340-6. Pat.Name: DUONG HERNANDEZ Pat.ID: [id number] .Date: 05/01/2019 Refer.MD: STACEY LUGO MD Exam Time: 9:25:00 AM Study Type:Carotid Height: 72in Weight: 186lb BSA: 2.07 m2 Age: 8 1955,63Y Sex: MALE Sonogrphr: Charleen Pathak RVT Pat. Stat.:Inpatient Room: [address] Tape Vol: RF, CPT - 4: 30854 Echo Event ID:[id number] Order ID: [id number] Reason for Study:Evaluate for possible carotid artery [...] Signed 05/01/2019 04:30 PMZsolt Brooke damon MD, RPVIHouston MethodistECG 12 nqho3532-56-27 16:22:07* Test Item Value Reference Range Interpretation Comments Ventricular rate (test code = 253) 66 Atrial rate (test code = 255) 66 WA interval (test code = 266) 184 QRSD [...] wave abnormality in Anterior leads- Michele MethodistPhosphorus rpyzz4380-96-49 07:59:06* Test Item Value Reference Range Interpretation Comments Phosphorus (test code = 2777-1) 3.8 mg/dL 2.4-4.5 [place] MethodistHemoglobin C2e3016-06-79 08:11:29* Test Item Value Reference Range Interpretation Comments Hemoglobin A1C (test code = 48604-1) 8.4 % 4-5.6 H HbA1c cutoffs for diagnosing diabetes:4.0% - 5.6% = normal5.7% - 6.4% = increased risk for diabetes (prediabetes)9>=6.5% = uclkjvmw6Hceme for glycemic control (ADA 2016)< 7.0% Target for non adults with diabetes. More or less stringent targets may be appropriate for individual patients. <7.5% Target for Children and adolescents with type 1 diabetes. Lab Interpretation (test code = 15351-4) Abnormal [place] MethodistLipid nhmsg1178-41-36 07:46:25* Test Item Value Reference Range Interpretation Comments Cholesterol (test code = 2093-3) 154 mg/dL <200 Triglycerides (test code = 2571-8) 130 mg/dL <150 HDL cholesterol (test code = 2085-9) 40 mg/dL >40 LDL cholesterol (test code = 2089-1) 91 mg/dL <100 Result obtained by direct LDL measurement Lipid panel interpretation (test code = 98171-4) SeeBelow Total Cholesterol (mg/dL) <200 Desirable 200-239 [...] therapy in personswith high triglycerides (>=200 mg/dL) [place] MethodistUric acid ynszg0405-41-47 07:46:25* Test Item Value Reference Range Interpretation Comments Uric acid (test code = 3084-1) 4.5 mg/dL 3.4-7 [place] MethodistLactic acid level, SEPSIS - Now and repeat 2x every 3 hours 2019-04-30 07:32:53* Test Item Value Reference Range Interpretation Comments Lactic acid (test code = 90730-9) 2.1 mmol/L 0.5-2.2 [place] MethodistXR Foot 3 Vw Nfnsutoha0097-72-93 07:25:58Hm Interface, Radiology Results - 04/30/2019 7:29 AM CSTEXAMINATION: XR FOOT 3 [...] le sionsNo radiopaque foreign bodies are present. [id number] MethodistUs duplex arterial lower mguqdcpks5267-95-82 23:36:00Interface, Radiology Results In - 04/29/2019 11:37 PM [facility] Vascular Ultrasound Laboratory Lower Extremity Arterial Duplex Report [id number] [address], [place], [place] [address]Fim.Name: DUONG HERNANDEZ.ID: [id number] .Date: 04/29/2019 Refer.MD: TREMAYNE CALLE MD Exam Time: 7:34:00 PM Study Type:LE Arterial Height: 72in BSA: 2.01 m2 Age: 8 1955,63Y Sex: MALE Sonogrphr: CHELSEA Castellon. Stat.:Inpatient Room: ED34 Tape Vol: VM, CPT - 4: 43416 Echo Event ID:[id number] Order ID: [id number] Reason for Study:Leg pain and discoloration bilateraly. [...] disease. FIN DINGS: ME ASUREMENTS: D OPPLERRight PLASTERING SUPERVISOR prox PLASTERING SUPERVISOR prox PSV 113 cm/s Right SFA Mid [...] Prox Peroneal Prox P 19 cm/s Right RN ON SITE Mid RN ON SITE Mid PSV 82.8 cm/s Tibial Post Rig ht Tibial Po 60 deg Right Tibial Po 60 deg Right RN ON SITE Prox RN ON SITE P kailey PSV 166 cm/s RN ON SITE Prox PSV 80 cm/sLeft PLASTERING SUPERVISOR Dist PLASTERING SUPERVISOR Dist PSV 58.7 cm/s Left SFA Dist [...] 142 cm/s VERONICA Prox PSV 142 cm/sRight PLASTERING SUPERVISOR Dist PLASTERING SUPERVISOR Dist PSV 114 cm/s Right Profunda Profunda PSV 104 cm/s Right SFA Dist SFA Dist PSV 97 cm/s Right RN ON SITE Prox 1 RN ON SITE Prox 1 PSV 151 cm/s Right RN ON SITE Prox 2 RN ON SITE Prox 2 PSV 166 cm/s Right RN ON SITE Mid 2 RN ON SITE Mid 2 PSV 79 cm/s Right RN ON SITE Distal RN ON SITE Distal PSV 233 cm/s Right VERONICA Prox VERONICA Prox PSV 79 cm/s Right VERONICA Mid VERONICA Mid PSV 103 cm/s Right VERONICA Dist 1 VERONICA Dist 1 PSV 77 cm/s Left Profunda Profunda PSV 122 cm/s Left Profunda 1 Profunda 1 PSV 142 cm/s Left Pop Dist Pop Dist PSV 69 cm/s Left Pop Dist 1 Pop Dist 1 PSV 61 cm/s Left RN ON SITE Prox RN ON SITE Prox PSV 189 cm/s Left RN ON SITE Mid RN ON SITE Mid PSV 34 cm/s Left RN ON SITE Distal RN ON SITE Distal PSV 15 cm/s Left VERONICA Mid [...] S igned 04/29/2019 11:36 PMTraciesolt Janessa MD, RPVIHealdsburg MethodistUs ankle brachial iuxki2556-74-61 23:20:00Interface, Radiology Results In - 04/29/2019 11:20 PM 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 Stat.:Inpatient Room: ED34 Tape Vol: VM, CPT - 4: 70634 Echo Event ID:[id number] Order ID: [id number] Reason for Study:Leg pain and discoloration bilateraly. [...] index in the right falls into the rmvpuwft-wl-yh verecategory. 4. Toe/brachial index in the left [...] index in the right falls into the kefixmkx-er-qhmvuzuyrjxspc. 4. Toe/brachial index in the left was unable to be obtained due toamputation.------ FINDINGS: Linda d 04/29/2019 11:20 Marilu Riddle MD, VIHealdsburg MethodistType and screen 2019-04-29 19:35:00* Test Item Value Reference Range Interpretation Comments ABO grouping (test code = 883-9) A Rh type (test code = 62075-3) POS Antibody screen (gel) (test code = 890-4) NEG Ryne SantanaistComprehensive metabolic kyxja2130-96-49 18:43:33* Test Item Value Reference Range Interpretation Comments Sodium (test code = 2951-2) 142 135- 148 mEq/L Potassium (test code = 2823-3) 4.8 3.5- 5.0 mEq/L Chloride (test code = 2075-0) 93 98- 112 mEq/L L CO2 (test code = 2027-9) 30 24- 31 mEq/L Anion gap (test code = 42332-9) 19@ANIO 7- 15 mEq/L H BUN (test code = 3094-0) 45 mg/dL 8-23 H Creatinine (test code = 2160-0) 9.78 mg/dL 0.7-1.2 H Glucose (test code = 2345-7) 285 mg/dL 65-99 H Calcium (test code = 32436-5) 7.8 mg/dL 8.8-10.2 L Protein (test code = 2885-2) 7.7 g/dL 6.3-8.3 Uucosob3453.6-7.0 g/dL1 uhhe0772.4-7.6 g/dL7 months-7oqsv413.1-7.3 g/dL1-2 iepwn323.6-7.5 g/dL>3 .0-8.0 g/kI94-5296989.3-8.3 g/dL Albumin (test code = 1751-7) 3.4 g/dL 3.5-5 L A/G ratio (test code = 1759-0) 0.8 0.7-3.8 Alkaline phosphatase (test code = 6768-6) 128 U/L 40-129 AST (test code = 1920-8) 19 U/L 10-50 ALT (test code = 1742-6) 8 U/L 5-50 Total bilirubin (test code = 1974-2) 0.5 mg/dL 0-1.2 Lab Interpretation (test code = 69703-1) Abnormal Ryne MethodistPartial thromboplastin time, qnucycewi3526-24-26 18:36:20* Test Item Value Reference Range Interpretation Comments PTT (test code = 13293-2) 38.4 23.0- 36.0 sec H PTT therapeutic range for unfractionated heparin is61.0-112.0 seconds which corresponds to Anti-Xa0.3-0.7 U/ml. Lab Interpretation (test code = 05650-4) Abnormal Michele MethodistProthrombin time with RWL8463-07-55 18:35:28* Test Item Value Reference Range Interpretation Comments Prothrombin time (test code = 5902-2) 14.3 11.5- 14.5 sec INR (test code = 41202-8) 1.1 Th e International Normalized Ratio (INR) is a therapeutic monitoring tool for patients who are stable on oral anticoagulant therapy. An INR of 2.0-3.0 is suggested for deep vein thrombosis/pulmonary embolism. [facility] ED Preliminary Interpretation - Not an Hbsfj4684-72-42 17:43:51* Test Item Value Reference Range Interpretation Comments ANDRES (test code = ANDRES) Tremayne Calle MD 5:28 [facility] [place] Preliminary Interpretation - Not an OrderPerformed by: Tremayne Calle MDAuthorized by: Tremayne Calle MD ECG reviewed by ED Physician in the a bsence of a developmental writing instructor: yes Interpretation: Interpretation: abnormal Rate: ECG rate: 66 ECG rate assessment: normal Rhythm: Rhythm: sinus rhythm Ectopy: Ectopy: none QRS: QRS axis: Left QRS intervals: NormalConduction: Conduction: abnormal Abnormal conduction: complete RBBB ST segments: ST segments: NormalT waves: T waves: inverted Inverted: S8Fqzlo findings: Other findings: LAE Lab Interpretation (test code = 25588-5) Abnormal [facility]landMagn[facility] ifqzq1929-26-95 07:26:32* Test Item Value Reference Range Interpretation Comments Magnesium (test code = 61983-5) 2.0 mg/dL 1.6-2.4 [facility] IrvingFzcoobzmsNozteyrk9269-08-32 09:53:48* Test Item Value Reference Range Interpretation Comments Troponin (test code = 01929-0) 0.662 ng/mL 0-0.04 H In patients suspected [...] 0.020 ng/mL Lab Interpretation (test code = 07169-4) Abnormal [facility] lab cgdwdjknc5745-51-24 17:40:33Addendum by Edy Lugo MD on 04/26/2019 [...] Edouard Ortiz EQUIPMENT/ANTICOAGULATION: Ri ght Common Femoral Wijxka3I Sheath XB LAD 3.5 Guide Catheter Noam Blue coronary wire Anticoagulation: Angiomax bolus and Infusion with ACT >250 sec prior to procedure PROCEDURAL DETAILS: The LMT was engaged with the XB 3.5 Guide Catheter and a Noam Blue coronary wire was advanced into the distal LAD. The lesion in the proximal LAD was pre-dilated with a 3.25 x 10mm Linton cutting balloon at 8 elodia and stented [...] Fellow: Edouard Ortiz EQUIPMENT/ANTICOAGULATION: Right Common Femoral Axaexi9P Sheath XB LAD 3.5 Guide Catheter Noam Blue coronary wire Anticoagulation: Ang iomax bolus and Infusion with ACT >250 sec prior to procedure PROCEDURAL DETAILS: The LMT was engaged with the XB 3.5 Guide Catheter and a Noam Blue coronary wire was advanced into the distal LAD. The lesion in the proximal LAD was pre-dilated with a 3.25 x 10mm Linton cutting balloon at 8 elodia and stented [...] modification. Cardiac rehabilitation. 4. Transferred in stable conditionHealdsburg MethodistActivated clotting zeck5740-48-67 14:57:14* Test Item Value Reference Range Interpretation Comments Activated clotting time (test code = 5298) 436 96- 152 sec H Intern Product Marketing Manager Name: Robbin Domingo ID: [id number] Lab Interpretation (test code = 65693-7) Abnormal [place] MethodistAnti Xa, almkzieohqhxpp0748-58-22 07:45:08* Test Item Value Reference Range Interpretation Comments Anti Xa, unfractionated (test code = 3274-8) 0.29 U/mL 0.3-0.7 L Therapeutic Range: 0.30 - 0.70 U/mL Lab Interpretation (test code = 33712-3) Abnormal [place] MethodistEchocardiogram complete w contrast and 3D if fdqwsw5225-58-24 16:31:00Interface, Radiology Results In - 04/21/2019 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 Stat.:Inpatient Room: ED25 Study Status:Final Echo Event ID:[id number] Order ID: [id number] Reason for Study:Type II NC History / Clinical:Diabetes, Hypertension, Peripheral VascularDisease, Degenerative [...] estimate PA systolic pressure. --MEASUREMENTS: 2DParasternal Long [place] Ao An 2.4 cm LVPWd 1.1 cm [...] MV pkA 73 cm/s Signed 04/21/2019 04:31 Kimberly Liang M.D.[place] MethodistHepatitis B surface antigen 2019-04-21 15:00:45* Test Item Value Reference Range Interpretation Comments Hepatitis B surface Ag (test code = 5195-3) Non-reactive Non-reacti ve [place] [facility] natriuretic kaihsdp6738-27-55 04:14:42* Test Item Value Reference Range Interpretation Comments BNP (test code = 45069-0) 1151 pg/mL 0-100 H ANDRES (test code = ANDRES) ___GLU_ results called to an d read back by _SUZY CRANDALL\\ER(name/location)at __ 04/21/2019 03:48 (date/time) by __LSB. Lab Interpretation (test code = 79171-6) Abnormal [place] MethodistXR Chest 1 Vw Dljbhctq1064-47-95 03:06:29Hm Interface, Radiology Results Incoming - 04/21/2019 [...] base minimal atelectasis. Otherwise no acute infiltrate identified.[facility]-[id number] MethodistCTA Abdominal Aorta And Bilateral Iliofemoral Runoff W Wo Contrast 2019-04-20 10:59:19Hm Interface, Radiology Results 04/20/2019 11:02 AM CSTEXAMINATION: CT ANGIOGRAM ABDOMINAL [...] are also presen t throughout the peroneal artery.[facility]-MX35VUGCRoqvvig MethodistSbeverly hospitalle antigen vyuok5561-83-59 07:37:59* Test Item Value Reference Range Interpretation Comments SAB serum ID (test code = 5866) [id number] [facility] serum collection D&T (test code = 5867) 01/11/2019 07:10 AM SAB class I antibody assignment (test code = 5870) B37 SAB cPRA class I (test code = 5868) 2 SAB class II antibody assignment (test code = 5871) Negative SAB cPRA class II (test code = 5869) 0 Case number (test code = 0504402) [id number] Single antigen beads (test code = 4604) See link below for PDF Lab Report [place] MethodistSplint Zdccxhmoucq3205-62-55 21:09:38Nikole Esteban NP 01/05/2019 9:10 PMSplint ApplicationPerformed by: Nikole Esteban NPAuthorized by: Devan Rhodes DO Consent: Consent obtained: Verbal Consent given by: Patient Risks discussed: Skin discoloration, distal paresthesia, pain and swelling Alternatives discussed: Delayed treatment, alternative treatment and observationPre-procedure details: Sensation: NormalProcedure details: Location: Foot Splint type: Short leg Supplies: O kvwo-HthmwPrxt-dcsnnnjyi details: Pain: Improved Sensation: Normal Patient tolerance of procedure: Tolerated well, no immediate complicationsHealdsburg MethodistLaceration Aqldlh4026-04-22 19:58:55Devan Rhodes DO 01/06/2019 6:25 AMLaceration RepairPerformed [...] of procedure: Tolerated well, no immediate compl icationsHoulovering colony state hospital MethodistWound Emzynda2012-66-64 06:50:00* Test Item Value Reference Range Interpretation Comments Wound Culture (test code = 6462-6) No Result Data Provided [facility] ClinicWound Xkpvwst7776-87-56 06:50:00* Test Item Value Reference Range Interpretation Comments Wound Culture (test code = 6462-6) No Result Data Provided [facility] ClinicBedside Grdgiyy7323-87-47 19:56:00* Test Item Value Reference Range Interpretation Comments Bedside Glucose (test code = 93613-6) 194 70-120 H Meter ID: [id number] [facility] PointeClostridium Difficile Toxin A & H5809-88-22 13:01:00* Test Item Value Reference Range Interpretation Comments Clostridium Difficile Toxin A & B (test code = 665682102) NEGATIVE NEGATIVE Criteria was met after checking with SUZY BOLDEN --- 01/04/19 130Tracy ---C DIFF A&B PROB previously reported as: NEGATIVE Testing on stool aspirate specimens is outside tension worker claims since specimen type not validated on this assay. [facility] ClinicClostridium Difficile Toxin A & B 2019-01-04 13:01:00* Test Item Value Reference Range Interpretation Comments Clostridium Difficile Toxin A & B (test code = 889886596) NEGATIVE NEGATIVE Criteria was met after checking with SUZY BOLDEN --- 01/04/19 1301 ---C DIFF A&B PROB previously reported as: NEGATIVE Testing on stool aspirate specimens is outside tension worker claims since specimen type not validated on this assay. [facility] ClinicClostridium difficile A and B toxin assay 2019-01-04 09:40:00* Test Item Value Reference Range Interpretation Comments Clostridium Difficile Toxin A & B (test code = 909393905) NEGATIVE NEGATIVE Criteria was met after checking with SUZY BOLDEN --- 01/04/19 1301 ---C DIFF A&B PROB previously reported as: NEGATIVE Testing on stool aspirate specimens is outside tension worker claims since specimen type not validated on this assay. [facility] ClinicBlood Hcsvnbd8339-13-73 14:14:00* Test Item Value Reference Range Interpretation Comments Blood Culture (test code = 98260305) NO GROWTH AFTER 5 DAYS, FINAL REPORT [facility]ood Pgomcvc5130-51-22 14:14:00* Test Item Value Reference Range Interpretation Comments Blood Culture (test code = 85228785) NO GROWTH AFTER 5 DAYS, FINAL REPORT [facility] ClinicFOOT LEFT AP YCA7449-97-10 20:40:[address] [address] Patient Name: DUONG HERANNDEZ MR #: [id number] : 1955 Age/Sex: 63/M Req #: [id number] Adm Physician: ANGELITA ESQUIVEL MD Ordered by: SAVANNA MO DPM Report #: [id number] [facility]: [facility] Room/Bed: [facility] Procedure: [id number] DX/F OOT LEFT AP LAT Exam Date: [...] on 01/01/192040 COPY TO: SAVANNA MO DPM Potassium Buaob7849-53-33 15:49:00* Test Item Value Reference Range Interpretation Comments Potassium Level (test code = 2823-3) 3.8 3.5-5.1 [facility] ClinicBlood Ekaonfj2383-28-88 14:13:00* Test Item Value Reference Range Interpretation Comments Blood Culture (test code = 600-7) No Result Data Provided [facility] Pjqsfmn2747-94-58 14:13:00* Test Item Value Reference Range Interpretation Comments Blood Culture (test code = 600-7) No Result Data Provided [facility] Kjpws1746-51-89 08:21:00* Test Item Value Reference Range Interpretation Comments Sodium Level (test code = 2951-2) 141 136-145 [facility] ClinicChloride Ycbuh6717-14-63 08:21:00* Test Item Value Reference Range Interpretation Comments Chloride Level (test code = 2075-0) 100 98-107 [facility] ClinicCarbon Dioxide Tyneg5552-50-10 08:21:00* Test Item Value Reference Range Interpretation Comments Carbon Dioxide Level (test code = 2028-9) 25 22-29 [facility] ClinicAnion Leq8377-17-12 08:21:00* Test Item Value Reference Range Interpretation Comments Anion Gap (test code = 03086-0) 20.6 8-16 H [facility] ClinicBlood Urea Onckjsfj9911-51-39 08:21:00* Test Item Value Reference Range Interpretation Comments Blood Urea Nitrogen (test code = 3094-0) 30 7-26 H [facility] ClinicCreatinine2019-10-25 08:21:00* Test Item Value Reference Range Interpretation Comments Creatinine (test code = 2160-0) 10.33 0.72-1.25 H [facility] ClinicBUN/Creatinine Yxhme8033-01-10 08:21:00* Test Item Value Reference Range Interpretation Comments BUN/Creatinine Ratio (test code = 3097-3) 3 6-25 L [facility] ClinicEstimat Glomerular Filtration Rate 2019-01-01 08:21:00* Test Item Value Reference Range Interpretation Comments Estimat Glomerular Filtration Rate (test code = 882445317) 6 >60 L Ranges were taken from the National Kidney Disease Education Program and the [facility] Foundation literature.Reference ranges:60 or greater: Vbxehb20-21 ( for 3 consecutive months): Chronic kidney disease 15 or less: Kidney failureFalls Community Hospital and ClinicGlucose Pyset6861-70-78 08:21:00* Test Item Value Reference Range Interpretation Comments Glucose Level (test code = TMO6788) 157 74-118 H [facility] ClinicCalcium Qwliq3746-43-21 08:21:00* Test Item Value Reference Range Interpretation Comments Calcium Level (test code = 57820-7) 8.5 8.4-10.2 [facility] ClinicWhite Blood Tazsm9153-58-94 07:59:00* Test Item Value Reference Range Interpretation Comments White Blood Count (test code = 6690-2) 6.78 4.8-10.8 [facility] ClinicRed Blood Djdbm1290-33-98 07:59:00* Test Item Value Reference Range Interpretation Comments Red Blood Count (test code = 789-8) 3.65 4.3-5.7 L [facility] ClinicHemoglobin2019-10-25 07:59:00* Test Item Value Reference Range Interpretation Comments Hemoglobin (test code = 68138-4) 10.8 14.0-18.0 L [facility] ClinicHematocrit2019-10-25 07:59:00* Test Item Value Reference Range Interpretation Comments Hematocrit (test code = 4544-3) 35.0 38.2-49.6 L [facility] ClinicMean Corpuscular Qwoczz0317-57-46 07:59:00* Test Item Value Reference Range Interpretation Comments Mean Corpuscular Volume (test code = 787-2) 95.9 81-99 [facility] ClinicMean Corpuscular Rwvwhxxuvj5284-58-27 07:59:00* Test Item Value Reference Range Interpretation Comments Mean Corpuscular Hemoglobin (test code = 785-6) 29.6 28-32 [facility] ClinicMean Corpuscular Hemoglobin Concent 2019-01-01 07:59:00* Test Item Value Reference Range Interpretation Comments Mean Corpuscular Hemoglobin Concent (test code = 786-4) 30.9 31-35 L [facility] ClinicRed Cell Distribution Tcehf7853-70-93 07:59:00* Test Item Value Reference Range Interpretation Comments Red Cell Distribution Width (test code = 35522-8) 15.6 11.7 -14.4 H [facility] and ClinicPlatelet Vzitc4059-43-65 07:59:00* Test Item Value Reference Range Interpretation Comments Platelet Count (test code = 777-3) 162 140-360 [facility] ClinicNeutrophils (%) (Auto)2019-01-01 07:59:00 * Test Item Value Reference Range Interpretation Comments Neutrophils (%) (Auto) (test code = 60171-0) 62.7 38.7-80.0 [facility] ClinicLymphocytes (%) (Auto)2019-01-01 07:59:00 * Test Item Value Reference Range Interpretation Comments Lymphocytes (%) (Auto) (test code = 736-9) 14.2 18.0-39.1 L [facility] ClinicMonocytes (%) (Auto)2019-01-01 07:59:00* Test Item Value Reference Range Interpretation Comments Monocytes (%) (Auto) (test code = 5905-5) 10.0 4.4-11.3 [facility] ClinicEosinophils (%) (Auto)2019-01-01 07:59:00 * Test Item Value Reference Range Interpretation Comments Eosinophils (%) (Auto) (test code = 713-8) 12.1 0.0-6.0 H [facility] ClinicBasophils (%) (Auto)2019-01-01 07:59:00* Test Item Value Reference Range Interpretation Comments Basophils (%) (Auto) (test code = 706-2) 0.6 0.0-1.0 [facility] ClinicIM GRANULOCYTES %2019-01-01 07:59:00* Test Item Value Reference Range Interpretation Comments IM GRANULOCYTES % (test code = IM GRANULOCYTES %) 0.4 0.0- 1.0 [facility] ClinicNeutrophils # (Auto)2019-01-01 07:59:00* Test Item Value Reference Range Interpretation Comments Neutrophils # (Auto) (test code = 751-8) 4.3 2.1-6.9 [facility] ClinicLymphocytes # (Auto)2019-01-01 07:59:00* Test Item Value Reference Range Interpretation Comments Lymphocytes # (Auto) (test code = 35039-2) 1.0 1.0-3.2 [facility] ClinicMonocytes # (Auto)2019-01-01 07:59:00* Test Item Value Reference Range Interpretation Comments Monocytes # (Auto) (test code = 742-7) 0.7 0.2-0.8 [facility] ClinicEosinophils # (Auto)2019-01-01 07:59:00* Test Item Value Reference Range Interpretation Comments Eosinophils # (Auto) (test code = 711-2) 0.8 0.0-0.4 H [facility] ClinicBasophils # (Auto)2019-01-01 07:59:00* Test Item Value Reference Range Interpretation Comments Basophils # (Auto) (test code = 704-7) 0.0 0.0-0.1 [facility] ClinicAbsolute Immature Granulocyte (auto 2019-01-01 07:59:00* Test Item Value Reference Range Interpretation Comments Absolute Immature Granulocyte (auto (jo ann t code = Absolute Immature Granulocyte (auto) 0.03 0-0.1 [facility] ClinicHepatitis Be Xllkhrn8908-31-21 16:44:00* Test Item Value Reference Range Interpretation Comments Hepatitis Be Antigen (test code = 01643-4) Negative Negative Performed at: - Lab[address] [id number] Director: Travon Christensen MD, Phone: [phone] Community Hospital and ClinicHesequoia hospital B Surface Cwzuqpx7337-76-49 16:44:00* Test Item Value Reference Range Interpretation Comments Hepatitis B Surface Antigen (test code = 5196-1) Negative Negat xin [facility] ClinicCHEST 2 SDUCZ2577-18-23 11:23:00 [address] [address] Patient Name: DUONG HERNANDEZ MR #: [id number] : 1955 Age/Sex: 63/M Req #: [id number] Adm Physician: ANGELITA ESQUIVEL MD Ordered by: SAVANNA MO DPM Report #: [id number] Location: MED/SURG2 Room/Bed: [facility] Procedure: [id number] DX/C HEST 2 VIEWS Exam Date: Exam [...] on 12/31/181127 COPY TO: SAVANNA MO DPM Prothrombin Nzgc8897-74-73 09:04:00* Test Item Value Reference Range Interpretation Comments Prothrombin Time (test code = 5902-2) 13.6 11.9-14.5 [facility] ClinicProthromb Time International Ratio 2018-12-31 09:04:00* Test Item Value Reference Range Interpretation Comments Prothromb Time International Ratio (test code = 6301-6) 0.99 Oral Anticoagulant Therapy INR Values:1. Low Intensity Therapy 1.5 - 2.02 . Moderate Intensity Therapy 2.0 - 3.03. High Intensity Therapy(1) 2.5 - 3. 54. High Intensity Therapy(2) 3.0 - 4.05. Panic Value INR > 5.0 [facility] ClinicC-Reactive Tnnaqyy1550-03-51 03:06:00* Test Item Value Reference Range Interpretation Comments C-Reactive Protein (test code = 1988-5) 9 0-10 Performed at: - Lab[address] [id number] Director: Travon Christensen MD, Phone: [phone] Community Hospital and ClinicTotal Koqmsbpql2190-66-88 05:26:00* Test Item Value Reference Range Interpretation Comments Total Bilirubin (test code = 1975-2) 0.3 0.2-1.2 [facility] ClinicAspartate Amino Transf (AST/SGOT) 2018-12-30 05:26:00* Test Item Value Reference Range Interpretation Comments Aspartate Amino Transf (AST/SGOT) (test code = Aspartate Amino Transf (AST/SGOT)) 9 5-34 [facility] ClinicAlanine Aminotransferase (ALT/SGPT) 2018-12-30 05:26:00* Test Item Value Reference Range Interpretation Comments Alanine Aminotransferase (ALT/SGPT) (test code = 1742-6) < 6 0-55 [facility] ClinicTotal Czrkshi9724-68-55 05:26:00* Test Item Value Reference Range Interpretation Comments Total Protein (test code = 2885-2) 7.0 6.5-8.1 [facility] ClinicAlbumin2019-10-23 05:26:00* Test Item Value Reference Range Interpretation Comments Albumin (test code = 1751-7) 2.9 3.5-5.0 L [facility] ClinicGlobulin2019-10-23 05:26:00* Test Item Value Reference Range Interpretation Comments Globulin (test code = 60726-1) 4.1 2.3-3.5 H [facility] ClinicAlbumin/Globulin [id number] 05:26:00 * Test Item Value Reference Range Interpretation Comments Albumin/Globulin Ratio (test code = 1759-0) 0.7 0.8-2.0 L [facility] [id number] 05:26:00* Test Item Value Reference Range Interpretation Comments Alkaline Phosphatase (test code = 6768-6) 77 40-150 [facility] [id number] 05:26:00* Test Item Value Reference Range Interpretation Comments Triglycerides Level (test code = 2571-8) 96 0-149 [facility] [id number] 05:26:00* Test Item Value Reference Range Interpretation Comments Cholesterol Level (test code = 2093-3) 157 0-199 Less than 200 mg/dL Low Jbko053 - 239 mg/dL Borderline Sddx602 m g/dl and greater High Risk [facility] [id number] 05:26:00* Test Item Value Reference Range Interpretation Comments LDL Cholesterol (test code = 2089-1) 109 60-130 [facility] [id number] 05:26:00* Test Item Value Reference Range Interpretation Comments HDL Cholesterol (test code = 2085-9) 29 40-60 L [facility]/HDL [id number] 05:26:00 * Test Item Value Reference Range Interpretation Comments Cholesterol/HDL Ratio (test code = 9830-1) 5.4 3.9-4.7 H [facility] ClinicFO[facility] AP [id number] 15:14:00 [facility] [address] [address] Patient Name: DUONG HERNANDEZ MR #: [id number] : 1955 Age/Sex: 63/M Req #: [id number] Adm Physician: ANGELITA ESQUIVEL MD Ordered by: ANUP ZEE MD Report #: [id number] Location: [facility] Room/Bed: [place] [address] Procedure: 1022-005 0 DX/FOOT LEFT AP LAT [...] MD on 12/29/2018 3:17 PM Dictated By: GONZAELZ MAHAN MD 16 Transcribed By: FELECIA on 12/29/181516 COPY TO: ANUP ZEE MD Bacterial blood [id number] 13:52:00* Test Item Value Reference Range Interpretation Comments Blood Culture (test code = 600-7) STAPHYLOCOCCUS SP COAG NEG [facility]
--- NOTE | 2019-11-12 15:19 | NUR ---
POSSIBLE TX TO ANOTHER HEALTH CARE FACILITY
--- NOTE | 2019-11-12 15:40 | NUR ---
TX TO [facility]
--- NOTE | 2019-11-12 16:18 | NUR ---
MOT PLACED ON PT'S CHART
--- NOTE | 2019-11-12 16:50 | NUR ---
UPDATED PT/FAMIY ON POC; AWAITNG BED ASSIGNMENT
--- NOTE | 2019-11-12 17:30 | NUR ---
AMS CALLED FOR TX Addendum: 11/12/19 at 1734 by AMCDONALD ETA APPROX. 30-45 MIN.
--- NOTE | 2019-11-12 17:35 | Emergency Department Note ---
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 Any updates have been documented here. Past Medical History Recent Fever: No Clinical Suspicion of Infectio: No New/Unexplained Change in Ment: No Past Medical History: Hypertension, Diabetes, CAD, ESRD, Hemodyalisis, Chronic Kidney Disease Other Medical History: LEFT TOE AMPUTATION Past Surgical History: CABG, Back Surgery, Cataract Removal Other Surgery: lt heart cath stent placed lad, c4 l fusion- herniated disc, both eyes cataracts, bka rt leg Cardiac stenting and CABG 04/2019 Social History Smoking Cessation: Never Smoker Counseling Performed: No Alcohol Use: None Any Illegal Drug Use: No Physically hurt or threatened: No Other Last Tetanus: UTD Any Pre-Existing Lines (PICC,: No Review of Systems Review of Systems Constitutional: Reports no symptoms EENTM: Reports no symptoms Cardiovascular: Reports no symptoms Respiratory: Reports no symptoms Gastrointestinal: Reports no symptoms Genitourinary: Reports no symptoms Musculoskeletal: Reports no symptoms Integumentary: Reports no symptoms Neurological: Reports no symptoms Psychological: Reports no symptoms Endocrine: Reports no symptoms Hematological/Lymphatic: Reports no symptoms Physical Exam Related Data Allergies: Coded Allergies: Iodinated Contrast Media (Verified Allergy, Intermediate, RASH, 08/02/19) heparin (Verified Allergy, Unknown, 12/29/18) Uncoded Allergies: CONTRAST DYE (Allergy, Intermediate, RASH, 07/30/19) Triage Vital Signs Vital Signs Date Time Temp Pulse Resp B/P (MAP) Pulse Ox O2 Delivery O2 Flow Rate FiO2 11/12/19 13:04 98.5 78 16 140/75 100 Room Air Vital signs reviewed: Yes Physical Exam CONSTITUTIONAL Constitutional: Present well-developed, Present well-nourished HENT HENT: Present normocephalic, Present atraumatic, Present oropharynx cl ear/moist, Present nose normal HENT L/R: Present left ext ear normal, Present right ext ear normal EYES Eyes: Reports PERRL, Reports conjunctivae normal NECK Neck: Present ROM normal PULMONARY Pulmonary: Present effort normal, Present breath sounds normal CARDIOVASCULAR Cardiovascular: Present regular rhythm, Present heart sounds normal, Present capillary refill normal, Present normal rate GASTROINTESTINAL Abdominal: Present soft, Present nontender, Present bowel sounds normal GENITOURINARY Genitourinary: Present exam deferred SKIN Skin: Present warm, Present dry MUSCULOSKELETAL Musculoskeletal: Present ROM normal NEUROLOGICAL Neurological: Present alert, Present oriented x 3, Present no gross motor or sensory deficits PSYCHOLOGICAL Psychological: Present mood/affect normal, Present judgement normal Exam - additional comments right upper arm HD graft with no thrill or bruit Results Laboratory Result Diagram: 11/12/19 1358 11/12/19 1358 Laboratory Laboratory Tests Test 11/12/19 13:58 White Blood Count 6.37 x10e3/uL (4.8-10.8) Red Blood Count 3.27 x10e6/uL (4.3-5.7) Hemoglobin 9.3 g/dL (14.0-18.0) Hematocrit 29.5 % (38.2-49.6) Mean Corpuscular Volume 90.2 fL (81-99) Mean Corpuscular Hemoglobin 28.4 pg (28-32) Mean Corpuscular Hemoglobin Concent 31.5 g/dL (31-35) Red Cell Distribution Width 13.7 % (11.7-14.4) Platelet Count 141 x10e3/uL (140-360) Neutrophils (%) (Auto) 72.3 % (38.7-80.0) Lymphocytes (%) (Auto) 9.9 % (18.0-39.1) Monocytes (%) (Auto) 9.3 % (4.4-11.3) Eosinophils (%) (Auto) 7.7 % (0.0-6.0) Basophils (%) (Auto) 0.3 % (0.0-1.0) Neutrophils # (Auto) 4.6 (2.1-6.9) Lymphocytes # (Auto) 0.6 (1.0-3.2) Monocytes # (Auto) 0.6 (0.2-0.8) Eosinophils # (Auto) 0.5 (0.0-0.4) Basophils # (Auto) 0.0 (0.0-0.1) Absolute Immature Granulocyte (auto 0.03 x10e3/uL (0-0.1) Prothrombin Time 13.9 seconds (11.9-14.5) Prothromb Time International Ratio 1.02 Activated Partial Thromboplast Time 38.8 seconds (23.8-35.5) Sodium Level 141 mmol/L (136-145) Potassium Level 4.1 mmol/L (3.5-5.1) Chloride Level 98 mmol/L (98-107) Carbon Dioxide Level 26 mmol/L (22-29) Anion Gap 21.1 mmol/L (8-16) Blood Urea Nitrogen 39 mg/dL (7-26) Creatinine 8.66 mg/dL (0.72-1.25) Estimat Glomerular Filtration Rate 8 ML/MIN (60-) BUN/Creatinine Ratio 5 (6-25) Glucose Level 164 mg/dL (74-118) Calcium Level 8.7 mg/dL (8.4-10.2) Total Bilirubin 0.6 mg/dL (0.2-1.2) Aspartate Amino Transf (AST/SGOT) 14 IU/L (5-34) Alanine Aminotransferase (ALT/SGPT) < 6 IU/L (0-55) Alkaline Phosphatase 73 IU/L (40-150) Creatine Kinase 115 IU/L (30-200) Creatine Kinase MB 1.30 ng/mL (0-5.0) Troponin I 0.024 ng/mL (0-0.300) Total Protein 7.3 g/dL (6.5-8.1) Albumin 3.9 g/dL (3.5-5.0) Globulin 3.4 g/dL (2.3-3.5) Albumin/Globulin Ratio 1.1 (0.8-2.0) Lab results reviewed: Yes Imaging Imaging results reviewed: Yes Procedures 12 Lead ECG Interpretation ECG Interpretation : ECG: ECG 1 Affiliate Marketing Coordinator: Interpreted by ED physician Date: Nov 12, 2019 Time: 13:34 Rhythm: sinus rhythm Rate: normal (73) QRS axis: left Conduction: right bundle branch block ST segments normal: Yes T wave inversion: III T waves flattening: V1, V2, V3, V4 Clinical Impression: abnormal ECG Assessment & Plan Medical Decision Making MDM esrd needs HD graft revised for dialysis - cbc, chem, cardiacs, cxr Reassessment Reassessment D/W Dr Dominguez who wants pt transferred for vascular surgery revision. I spoke with Dr Raymond and initiated transfer to [facility]. I then spoke with the accepting MD, Dr De La Cruz. Assessment & Plan Final Impression: (1) Hemodialysis graft malfunction (2) ESRD needing dialysis Depart Disposition: TRANS TO OTHER [facility] FAC[facility] Last Vital Signs Date Time Temp Pulse Resp B/P (MAP) Pulse Ox O2 Delivery O2 Flow Rate FiO2 11/12/19 16:37 73 19 161/83 100 Room Air 11/12/19 13:23 98.7 Home Meds Active Scripts Amoxicillin/Potassium Clav (AUGMENTIN 875-125 TABLET) 1 Each Tablet, 1 EACH PO BID for 7 Days, #14 TAB 0 Refills Prov:BEBE RAMIREZ NP 09/30/19 Lactulose (LACTULOSE) 20 Gm/30 Ml Solution, 20 GM PO BID PRN for CONSTIPATION for 14 Days, #30 DOSE 0 Refills Prov:BEBE RAMIREZ NP 09/30/19 [Insulin Lispro] 100 UNIT/1 ML VIAL No Conflict Check, 0 UNIT SQ ACHS for 30 Days, #1 VIAL 0 Refills For BS 121-150 take 2 units SC for BS 151-200 take 4 units SC for BS 201-250 take 6 units SC for BS 251-300 take 8 units SC for BS 301-350 take 10 units SC for BS 351-400 take 12 units SC for BS >400 take 14 units SC and call MD Prov:BEBE RAMIREZ NP 09/30/19 Insulin Glargine (LANTUS 3ML PEN) 100 Units/1 Ml Inj, 10 UNITS SC HS for 30 Days, #4 UNITS 0 Refills Prov:BEBE RAMIREZ NP 09/30/19 Sevelamer Hcl (RENVELA) 800 Mg Tab, 1600 MG PO TIDWM for 30 Days, TAB Prov:BEBE RAMIREZ NP 08/05/19 Bisacodyl (DULCOLAX) 5 Mg Tablet.dr 10 MG PO TID PRN for Constipation for 30 Days Prov:BEBE RAMIREZ NP 08/05/19 Pregabalin (LYRICA) 75 Mg Cap, 75 MG PO DAILY, #30 CAP Prov:CHLOE ESCUDERO CHILD LIFE SPECIALIST 06/22/19 [Atorvastatin] 40 MG TAB No Conflict Check, 40 MG PO HS for 30 Days Prov:CHLOE ESCUDERO CHILD LIFE SPECIALIST 06/22/19 Aspirin (ASPIRIN CHEW) 81 Mg Chew, 81 MG PO DAILY for 30 Days Prov:CHLOE ESCUDERO CHILD LIFE SPECIALIST 06/22/19 Amlodipine Besylate (NORVASC) 10 Mg Tab, 10 MG PO DAILY for 30 Days, TAB Prov:CHLOE ESCUDERO CHILD LIFE SPECIALIST 06/22/19 Reported Medications Acetaminophen With Codeine (TYLENOL WITH CODEINE #3 TABLET) 1 Each Tablet, 300 MG PO Q6H PRN for PAIN for 5 Days, TAB 09/27/19 Pantoprazole Sod (PROTONIX) 40 Mg/Ml Susp, 40 MG PO DAILY 09/27/19 [Dialyvite 800-Zinc15] No Conflict Check, 0.8 MG PO DAILY 09/27/19 Rivaroxaban (XARELTO) 10 Mg Tablet, 10 MG PO DAILY 09/27/19 Gabapentin (GABAPENTIN) 100 Mg Capsule, MG PO BID 07/30/19 Tramadol Hcl* (ULTRAM 50MG*) 50 Mg Tab, 50 MG PO BID PRN for MILD PAIN (1-3), TAB 07/30/19 Cinacalcet Hcl (SENSIPAR) 60 Mg Tablet, 60 MG PO AC 12/29/18 Metoprolol Tartrate (METOPROLOL TARTRATE) 100 Mg Tablet, 100 MG PO BID 12/29/18 DIAZ BROWN MD Nov 12, 2019 17:35
--- NOTE | 2019-11-12 17:44 | NUR ---
CALLED REPORT TO SUZY GURROLA FOR THIS PATIENT TO GO TO [id number]. [phone]
--- NOTE | 2019-11-12 17:45 | NUR ---
ATTEMPTING TO CALL REPORT.
[2019-11-12 17:53] VITALS: BP 167/84
--- NOTE | 2019-11-12 18:46 | NUR ---
TX AT THIS TIME.
== END 2019-11-12 18:45 | disposition other institution (70) ==
LOC: ER 13:00
DX: T82.49XA Other complication of vascular dialysis catheter, initial encounter (principal); I12.0 Hypertensive chronic kidney disease with stage 5 chronic kidney disease or end stage renal disease; E11.22 Type 2 diabetes mellitus with diabetic chronic kidney disease; N18.6 End stage renal disease; Z99.2 Dependence on renal dialysis; Z95.1 Presence of aortocoronary bypass graft; Z95.5 Presence of coronary angioplasty implant and graft
CPT/HCPCS: 36415; 71045; 80053; 82550; 82553; 84484; 85025; 85610; 85730; 93005; 99284

== ENCOUNTER 2020-03-06 17:01 | Emergency (ER) | payer MEDICARE ==
[~2020-03-06] VITALS: Ht 182.9 cm; Wt 81.6 kg
[2020-03-06] MEDS ORDERED: CIPRO HC OTIC S10 ML LEFT EAR (17:28)
== END 2020-03-06 17:35 | disposition home or self-care (01) ==
LOC: FSED 17:35
DX: H60.92 Unspecified otitis externa, left ear (principal); E11.22 Type 2 diabetes mellitus with diabetic chronic kidney disease; I12.0 Hypertensive chronic kidney disease with stage 5 chronic kidney disease or end stage renal disease; N18.6 End stage renal disease; Z99.2 Dependence on renal dialysis; E03.9 Hypothyroidism, unspecified
CPT/HCPCS: 99282

== ENCOUNTER 2020-03-09 23:13 | Observation (INO) | payer MEDICARE ==
[~2020-03-09] VITALS: Ht 182.9 cm; Wt 81.6 kg
[~2020-03-09 23:13] MED LIST changes: +CIPRO HC OTIC S10 ML LEFT EAR
[2020-03-10 02:17] LABS: INR 0.95; PROTHROMBIN TIME 13.2 seconds (11.9-14.5)
[2020-03-10 02:18] LABS: BASOPHILS % 0.2 % (0.0-1.0); EOSINOPHILS # (AUTO) 0.3 (0.0-0.4); EOSINOPHILS % 5.9 % (0.0-6.0); HEMATOCRIT 23.9 % (38.2-49.6); HEMOGLOBIN 7.7 g/dL (14.0-18.0); LYMPHOCYTES # (AUTO) 0.7 (1.0-3.2); LYMPHOCYTES % 12.7 % (18.0-39.1); MEAN CORPUSCULAR HEMOGLOBIN 28.9 pg (28-32); MEAN CORPUSCULAR HGB CONC 32.2 g/dL (31-35); MEAN CORPUSCULAR VOLUME 89.8 fL (81-99); MONOCYTES # (AUTO) 0.5 (0.2-0.8); MONOCYTES % 9.1 % (4.4-11.3); NEUTROPHILS # (AUTO) 4.1 (2.1-6.9); NEUTROPHILS % 71.8 % (38.7-80.0); PLATELET COUNT 170 x10e3/uL (140-360); RED BLOOD COUNT 2.66 x10e6/uL (4.3-5.7); RED CELL DISTRIBUTION WIDTH 14.6 % (11.7-14.4)
[2020-03-10 02:19] LABS: PARTIAL THROMBOPLASTIN TIME 35.4 seconds (23.8-35.5)
[2020-03-10 02:23] LABS: ANION GAP 21.5 mmol/L (8-16); CALCIUM 8.6 mg/dL (8.4-10.2); CREATININE, SERUM 11.75 mg/dL (0.72-1.25); POTASSIUM 4.5 mmol/L (3.5-5.1)
[2020-03-10] MEDS ORDERED: INSULIN REGULAR, HUMAN 100 UNIT/1 ML 3ML VIAL SQ ONE ×2 (03:00→04:45)
[2020-03-10] MEDS ORDERED: DEXTROSE 50% SYRINGE 50 ML IV PRN (03:00)
[2020-03-10] MEDS ORDERED: SODIUM CHLORIDE FLUSH 10 ML SYR INJ PRN (03:00)
[2020-03-10] MEDS: INSULIN REGULAR, HUMAN 100 UNIT/1 ML 3ML VIAL SQ SCH ×4 (04:47→20:28)
[2020-03-10] MEDS ORDERED: EPOETIN ALFA-EPBX 10,000 UNIT/ML VIAL SC SCH (08:30)
[2020-03-10] MEDS ORDERED: ACETAMINOPHEN 325 MG TAB PO PRN (09:00)
[2020-03-10] MEDS ORDERED: ACETAMINOPHEN 325 MG TAB PO ONE (09:00)
[2020-03-10] MEDS ORDERED: TRAMADOL HCL 50 MG TAB PO PRN (11:45)
[2020-03-10] MEDS ORDERED: LACTULOSE SYRUP 20 GM/30 ML UDC PO PRN (11:45)
[2020-03-10] MEDS ORDERED: BISACODYL 5 MG TAB EC PO PRN (11:45)
[2020-03-10] MEDS ORDERED: ONDANSETRON HCL INJ 2MG/ML 2ML 2 MG/ML VIAL IV PRN (11:45)
[2020-03-10] MEDS: SEVELAMER CARBONATE 800 MG TAB PO SCH ×2 (12:29→16:28)
[2020-03-10] MEDS ORDERED: LIDOCAINE HCL 1% LOCAL INJ 20 ML VIAL ONE (13:10)
[2020-03-10 13:54] VITALS: BP 177/77
[2020-03-10 16:00] VITALS: BP 177/73
[2020-03-10] MEDS: CINACALCET 30 MG TAB PO SCH (16:24)
[2020-03-10] MEDS: GABAPENTIN 100 MG CAP PO SCH (16:28)
[2020-03-10] MEDS: METOPROLOL TARTRATE 50 MG TAB PO SCH (16:28)
[2020-03-10] MEDS: ACETAMINOPHEN/CODEINE 300MG - 30MG TAB PO PRN (16:29)
[2020-03-10 20:00] VITALS: BP 158/73
[2020-03-10] MEDS: ATORVASTATIN 40 MG TAB PO SCH (20:27)
[2020-03-10] MEDS: INSULIN GLARGINE 100 UNITS/ML VIAL SC SCH (20:27)
[2020-03-10 20:36] VITALS: BP 158/73
[2020-03-11] VITALS (7 sets, daily range): BP systolic 134–185; BP diastolic 65–81
[2020-03-11] MEDS: HYDRALAZINE HCL 20 MG/ML VIAL IV PRN ×3 (00:16→20:33)
[2020-03-11 05:58] LABS: BASOPHILS % 0.3 % (0.0-1.0); EOSINOPHILS # (AUTO) 0.3 (0.0-0.4); EOSINOPHILS % 4.4 % (0.0-6.0); HEMOGLOBIN 7.3 g/dL (14.0-18.0); LYMPHOCYTES # (AUTO) 0.8 (1.0-3.2); LYMPHOCYTES % 12.1 % (18.0-39.1); MEAN CORPUSCULAR HEMOGLOBIN 28.7 pg (28-32); MEAN CORPUSCULAR HGB CONC 31.7 g/dL (31-35); MEAN CORPUSCULAR VOLUME 90.6 fL (81-99); MONOCYTES # (AUTO) 0.6 (0.2-0.8); MONOCYTES % 9.4 % (4.4-11.3); NEUTROPHILS # (AUTO) 4.6 (2.1-6.9); NEUTROPHILS % 73.5 % (38.7-80.0); PLATELET COUNT 183 x10e3/uL (140-360); RED BLOOD COUNT 2.54 x10e6/uL (4.3-5.7); RED CELL DISTRIBUTION WIDTH 14.9 % (11.7-14.4)
[2020-03-11 06:21] LABS: PARTIAL THROMBOPLASTIN TIME 37.4 seconds (23.8-35.5); PROTHROMBIN TIME 13.8 seconds (11.9-14.5)
[2020-03-11 06:24] LABS: ANION GAP 22.7 mmol/L (8-16); CALCIUM 8.2 mg/dL (8.4-10.2); CREATININE, SERUM 13.21 mg/dL (0.72-1.25); PHOSPHORUS 4.7 MG/DL (2.3-4.7); POTASSIUM 4.7 mmol/L (3.5-5.1)
[2020-03-11] MEDS: ACETAMINOPHEN/CODEINE 300MG - 30MG TAB PO PRN ×3 (08:22→21:30)
[2020-03-11] MEDS: PREGABALIN 75 MG CAP PO SCH (08:25)
[2020-03-11] MEDS: PANTOPRAZOLE SOD 40 MG TABEC PO SCH (08:25)
[2020-03-11] MEDS: AMLODIPINE BESYLATE 10 MG TAB PO SCH (08:25)
[2020-03-11] MEDS: GABAPENTIN 100 MG CAP PO SCH ×2 (08:25→17:23)
[2020-03-11] MEDS: METOPROLOL TARTRATE 50 MG TAB PO SCH ×2 (08:25→17:23)
[2020-03-11] MEDS: CINACALCET 30 MG TAB PO SCH ×3 (08:25→17:25)
[2020-03-11] MEDS: SEVELAMER CARBONATE 800 MG TAB PO SCH ×3 (08:25→17:23)
[2020-03-11] MEDS: INSULIN REGULAR, HUMAN 100 UNIT/1 ML 3ML VIAL SQ SCH ×4 (08:26→20:40)
[2020-03-11] MEDS ORDERED: EPOETIN ALFA-EPBX 10,000 UNIT/ML VIAL SC SCH (08:30)
[2020-03-11] MEDS ORDERED: SODIUM CHLORIDE 0.9% 1000ML 2,000 ML ONE (08:31)
[2020-03-11] MEDS: CIPROFLOXACIN/HYDROCORTISONE OTIC 10ML BTL LEFT EAR SCH ×2 (09:00→17:22)
[2020-03-11] MEDS ORDERED: RIVAROXABAN 10 MG TABLET PO SCH (09:00)
[2020-03-11] MEDS ORDERED: ASPIRIN 81 MG CHEW TAB PO SCH (09:00)
[2020-03-11] MEDS ORDERED: HEPARIN SOD (PORCINE) 1000 UNIT/ML SDV IV PRN (12:30)
[2020-03-11] MEDS ORDERED: SODIUM CHLORIDE 0.9% 1000ML 2,000 ML IV PRN (12:30)
[2020-03-11] MEDS ORDERED: ALBUMIN 25% 12.5GM 0.25 GM/ML BTL IV PRN (12:30)
[2020-03-11] MEDS ORDERED: SODIUM CHLORIDE 0.9% 250ML 500 ML IV PRN (12:30)
[2020-03-11] MEDS: ATORVASTATIN 40 MG TAB PO SCH (20:31)
[2020-03-11] MEDS: INSULIN GLARGINE 100 UNITS/ML VIAL SC SCH (20:32)
[2020-03-12] VITALS (8 sets, daily range): BP systolic 128–138; BP diastolic 66–92
[2020-03-12 06:16] LABS: BASOPHILS % 0.5 % (0.0-1.0); EOSINOPHILS # (AUTO) 0.3 (0.0-0.4); EOSINOPHILS % 5.3 % (0.0-6.0); HEMOGLOBIN 7.5 g/dL (14.0-18.0); LYMPHOCYTES # (AUTO) 0.7 (1.0-3.2); LYMPHOCYTES % 10.7 % (18.0-39.1); MEAN CORPUSCULAR HEMOGLOBIN 28.7 pg (28-32); MEAN CORPUSCULAR HGB CONC 31.3 g/dL (31-35); MONOCYTES # (AUTO) 0.7 (0.2-0.8); MONOCYTES % 11.3 % (4.4-11.3); NEUTROPHILS # (AUTO) 4.5 (2.1-6.9); NEUTROPHILS % 71.9 % (38.7-80.0); PLATELET COUNT 187 x10e3/uL (140-360); RED BLOOD COUNT 2.61 x10e6/uL (4.3-5.7); RED CELL DISTRIBUTION WIDTH 15.6 % (11.7-14.4)
[2020-03-12 06:41] LABS: ANION GAP 15.3 mmol/L (8-16); CREATININE, SERUM 7.62 mg/dL (0.72-1.25); POTASSIUM 4.3 mmol/L (3.5-5.1)
[2020-03-12] MEDS: INSULIN REGULAR, HUMAN 100 UNIT/1 ML 3ML VIAL SQ SCH ×4 (07:30→20:53)
[2020-03-12] MEDS: CINACALCET 30 MG TAB PO SCH ×3 (08:18→17:19)
[2020-03-12] MEDS: CIPROFLOXACIN/HYDROCORTISONE OTIC 10ML BTL LEFT EAR SCH ×2 (08:18→17:19)
[2020-03-12] MEDS: SEVELAMER CARBONATE 800 MG TAB PO SCH ×3 (08:18→17:19)
[2020-03-12] MEDS: GABAPENTIN 100 MG CAP PO SCH ×2 (08:19→17:19)
[2020-03-12] MEDS: PANTOPRAZOLE SOD 40 MG TABEC PO SCH (08:19)
[2020-03-12] MEDS: PREGABALIN 75 MG CAP PO SCH (08:19)
[2020-03-12] MEDS: METOPROLOL TARTRATE 50 MG TAB PO SCH ×2 (08:19→17:19)
[2020-03-12] MEDS: AMLODIPINE BESYLATE 10 MG TAB PO SCH (08:20)
[2020-03-12] MEDS: ACETAMINOPHEN/CODEINE 300MG - 30MG TAB PO PRN (08:23)
[2020-03-12] MEDS: ATORVASTATIN 40 MG TAB PO SCH (20:53)
[2020-03-12] MEDS: INSULIN GLARGINE 100 UNITS/ML VIAL SC SCH (21:28)
[2020-03-13] VITALS (8 sets, daily range): BP systolic 149–170; BP diastolic 67–78
[2020-03-13 06:24] LABS: BASOPHILS % 0.5 % (0.0-1.0); EOSINOPHILS # (AUTO) 0.5 (0.0-0.4); EOSINOPHILS % 7.7 % (0.0-6.0); HEMATOCRIT 23.9 % (38.2-49.6); HEMOGLOBIN 7.4 g/dL (14.0-18.0); LYMPHOCYTES # (AUTO) 0.8 (1.0-3.2); LYMPHOCYTES % 12.6 % (18.0-39.1); MEAN CORPUSCULAR HEMOGLOBIN 28.8 pg (28-32); MONOCYTES # (AUTO) 0.7 (0.2-0.8); MONOCYTES % 10.9 % (4.4-11.3); NEUTROPHILS # (AUTO) 4.4 (2.1-6.9); PLATELET COUNT 181 x10e3/uL (140-360); RED BLOOD COUNT 2.57 x10e6/uL (4.3-5.7); RED CELL DISTRIBUTION WIDTH 15.8 % (11.7-14.4)
[2020-03-13 06:54] LABS: INR 0.98; PROTHROMBIN TIME 13.6 seconds (11.9-14.5)
[2020-03-13 06:55] LABS: PARTIAL THROMBOPLASTIN TIME 38.9 seconds (23.8-35.5)
[2020-03-13 07:08] LABS: ALBUMIN 2.5 g/dL (3.5-5.0); ALBUMIN/GLOBULIN RATIO 0.6 (0.8-2.0); ANION GAP 17.8 mmol/L (8-16); CALCIUM 7.4 mg/dL (8.4-10.2); CREATININE, SERUM 9.58 mg/dL (0.72-1.25); POTASSIUM 4.8 mmol/L (3.5-5.1)
[2020-03-13] MEDS: INSULIN REGULAR, HUMAN 100 UNIT/1 ML 3ML VIAL SQ SCH ×4 (07:30→21:00)
[2020-03-13] MEDS ORDERED: MORPHINE SULFATE INJ 2 MG/ML SYR IV PRN (07:30)
[2020-03-13] MEDS: CINACALCET 30 MG TAB PO SCH ×3 (07:30→17:33)
[2020-03-13] MEDS: SEVELAMER CARBONATE 800 MG TAB PO SCH ×3 (07:46→17:34)
[2020-03-13] MEDS ORDERED: CEFAZOLIN SOD 1 GM/NS 50ML 50 ML IV ONE (08:38)
[2020-03-13] MEDS ORDERED: FENTANYL CITRATE/PF 100MCG/2 ML INJ ONE (08:45)
[2020-03-13] MEDS ORDERED: MIDAZOLAM HCL 2 MG/2 ML VIAL ONE (08:46)
[2020-03-13] MEDS: CIPROFLOXACIN/HYDROCORTISONE OTIC 10ML BTL LEFT EAR SCH ×2 (09:00→17:34)
[2020-03-13] MEDS: AMLODIPINE BESYLATE 10 MG TAB PO SCH (09:00)
[2020-03-13] MEDS: PREGABALIN 75 MG CAP PO SCH (09:00)
[2020-03-13] MEDS: GABAPENTIN 100 MG CAP PO SCH ×2 (09:00→17:34)
[2020-03-13] MEDS ORDERED: SODIUM CHLORIDE 0.9% 250ML 250 ML IV SCH (09:00)
[2020-03-13] MEDS: PANTOPRAZOLE SOD 40 MG TABEC PO SCH (09:00)
[2020-03-13] MEDS: METOPROLOL TARTRATE 50 MG TAB PO SCH ×2 (09:00→17:00)
[2020-03-13] MEDS ORDERED: LIDOCAINE HCL 1% LOCAL INJ 20 ML VIAL ONE (09:01)
[2020-03-13] MEDS ORDERED: SODIUM CHLORIDE 0.9% 250ML 250 ML ONE (09:01)
[2020-03-13] MEDS: ATORVASTATIN 40 MG TAB PO SCH (21:06)
[2020-03-13] MEDS: HYDRALAZINE HCL 20 MG/ML VIAL IV PRN (21:06)
[2020-03-13] MEDS: INSULIN GLARGINE 100 UNITS/ML VIAL SC SCH (21:11)
[2020-03-14] VITALS: BP 162/71
[2020-03-14] MEDS: ACETAMINOPHEN/CODEINE 300MG - 30MG TAB PO PRN ×3 (01:06→14:05)
[2020-03-14 04:00] VITALS: BP 139/67
[2020-03-14 05:56] LABS: BASOPHILS % 0.5 % (0.0-1.0); EOSINOPHILS # (AUTO) 0.5 (0.0-0.4); EOSINOPHILS % 6.2 % (0.0-6.0); HEMATOCRIT 33.4 % (38.2-49.6); HEMOGLOBIN 10.7 g/dL (14.0-18.0); LYMPHOCYTES # (AUTO) 0.7 (1.0-3.2); MEAN CORPUSCULAR HEMOGLOBIN 28.8 pg (28-32); MEAN CORPUSCULAR VOLUME 89.8 fL (81-99); MONOCYTES # (AUTO) 0.7 (0.2-0.8); MONOCYTES % 9.2 % (4.4-11.3); NEUTROPHILS # (AUTO) 6.1 (2.1-6.9); NEUTROPHILS % 74.9 % (38.7-80.0); PLATELET COUNT 174 x10e3/uL (140-360); RED BLOOD COUNT 3.72 x10e6/uL (4.3-5.7); RED CELL DISTRIBUTION WIDTH 15.7 % (11.7-14.4)
[2020-03-14 06:13] LABS: ALBUMIN 2.7 g/dL (3.5-5.0); ALBUMIN/GLOBULIN RATIO 0.6 (0.8-2.0); ALKALINE PHOSPHATASE 111 IU/L (40-150); ANION GAP 15.3 mmol/L (8-16); BLOOD UREA NITROGEN 24 mg/dL (7-26); BUN/CREATININE RATIO 4 (6-25); CALCIUM 7.4 mg/dL (8.4-10.2); CARBON DIOXIDE 26 mmol/L (22-29); CHLORIDE 97 mmol/L (98-107); CREATININE, SERUM 6.68 mg/dL (0.72-1.25); EST GLOMERULAR FILTRATION RATE 10 ML/MIN (60-); GLUCOSE 179 mg/dL (74-118); POTASSIUM 4.3 mmol/L (3.5-5.1); SODIUM 134 mmol/L (136-145)
[2020-03-14 06:14] LABS: ALANINE AMINOTRANSFERASE < 6 IU/L (0-55)
[2020-03-14 06:27] LABS: INR 0.98; PROTHROMBIN TIME 13.6 seconds (11.9-14.5)
[2020-03-14 06:28] LABS: PARTIAL THROMBOPLASTIN TIME 36.1 seconds (23.8-35.5)
[2020-03-14] MEDS: CINACALCET 30 MG TAB PO SCH ×3 (07:30→16:30)
[2020-03-14] MEDS: INSULIN REGULAR, HUMAN 100 UNIT/1 ML 3ML VIAL SQ SCH ×3 (07:30→16:30)
[2020-03-14] MEDS: SEVELAMER CARBONATE 800 MG TAB PO SCH ×3 (08:00→17:13)
[2020-03-14 08:39] VITALS: BP 153/75
[2020-03-14] MEDS: CIPROFLOXACIN/HYDROCORTISONE OTIC 10ML BTL LEFT EAR SCH ×2 (09:00→17:00)
[2020-03-14] MEDS: METOPROLOL TARTRATE 50 MG TAB PO SCH ×2 (09:00→17:00)
[2020-03-14] MEDS: GABAPENTIN 100 MG CAP PO SCH ×2 (09:00→17:13)
[2020-03-14 09:05] VITALS: BP 153/75
[2020-03-14] MEDS ORDERED: MIDAZOLAM HCL 2 MG/2 ML VIAL ONE (11:10)
[2020-03-14] MEDS ORDERED: CEFAZOLIN SOD 1 GM/NS 50ML 50 ML IV ONE (11:11)
[2020-03-14] MEDS ORDERED: FENTANYL CITRATE/PF 100MCG/2 ML INJ ONE (11:11)
[2020-03-14] MEDS ORDERED: ONDANSETRON HCL 4 MG ORAL DISINTEGRATING TAB SL PRN (11:30)
[2020-03-14] MEDS ORDERED: SODIUM CHLORIDE 0.9% 250ML 250 ML ONE (11:55)
[2020-03-14] MEDS ORDERED: LIDOCAINE HCL 1% LOCAL INJ 20 ML VIAL ONE (11:55)
[2020-03-14 12:20] VITALS: BP 145/72
[2020-03-14] MEDS ORDERED: HEPARIN SOD (PORCINE) 1000 UNIT/ML SDV ONE ×2 (12:33→12:35)
[2020-03-14] MEDS: PREGABALIN 75 MG CAP PO SCH (14:09)
[2020-03-14] MEDS: PANTOPRAZOLE SOD 40 MG TABEC PO SCH (14:09)
[2020-03-14] MEDS: AMLODIPINE BESYLATE 10 MG TAB PO SCH (14:09)
[2020-03-14 16:05] VITALS: BP 159/74
== END 2020-03-14 20:20 | disposition home or self-care (01) ==
LOC: ER 23:35 → ERHOLD 03-10 02:50 → MED/SURG 03-10 13:51
PROVIDERS: ADMIT Internal Medicine; ATTEND Internal Medicine
DX: T82.42XA Displacement of vascular dialysis catheter, initial encounter (principal); E11.22 Type 2 diabetes mellitus with diabetic chronic kidney disease; I12.0 Hypertensive chronic kidney disease with stage 5 chronic kidney disease or end stage renal disease; N18.6 End stage renal disease; Z99.2 Dependence on renal dialysis; E03.9 Hypothyroidism, unspecified; Z89.511 Acquired absence of right leg below knee; Z88.8 Allergy status to other drugs, medicaments and biological substances; Z91.041 Radiographic dye allergy status; I25.10 Atherosclerotic heart disease of native coronary artery without angina pectoris; N25.81 Secondary hyperparathyroidism of renal origin; E11.40 Type 2 diabetes mellitus with diabetic neuropathy, unspecified; Z79.82 Long term (current) use of aspirin; Z79.4 Long term (current) use of insulin; D63.1 Anemia in chronic kidney disease
CPT/HCPCS: 36415 ×5; 36556; 36558; 71045; 74470 ×2; 76937 ×2; 77001 ×2; 80048 ×3; 80053 ×2; 82948 ×5; 84100; 85025 ×5; 85610 ×4; 85730 ×4; 86704; 86705; 86707; 86850; 86900; 86920; 87340; 90935; 96372; 97602; 99251; 99284; C1769; G0378 ×5; J0360 ×2; J0690 ×2; J1644 ×3; J1815; J1817; J2001 ×3; J2250 ×2; J2405; J3010 ×2; J7030 ×2; J7050 ×2; P9016; S0164 ×3; U0002; 90962; 99152; 99153

== ENCOUNTER 2020-03-20 18:27 | Emergency (ER) | payer MEDICARE ==
[~2020-03-20] VITALS: Ht 182.9 cm; Wt 83.9 kg
[2020-03-20] MEDS ORDERED: ACETIC ACID15 ML OT (19:04)
[2020-03-20] MEDS ORDERED: NEOMYCIN-POLYMY10 M1 OT (19:11)
[2020-03-20] MEDS ORDERED: DICLOXACILLIN500 MG PO (19:15)
== END 2020-03-20 19:30 | disposition home or self-care (01) ==
LOC: FSED 18:59
DX: H66.92 Otitis media, unspecified, left ear (principal); I10 Essential (primary) hypertension; I12.0 Hypertensive chronic kidney disease with stage 5 chronic kidney disease or end stage renal disease; E11.22 Type 2 diabetes mellitus with diabetic chronic kidney disease; N18.6 End stage renal disease; Z99.2 Dependence on renal dialysis; E78.5 Hyperlipidemia, unspecified
CPT/HCPCS: 87071; 87186; 87205; 99282

== ENCOUNTER 2020-05-16 15:07 | Inpatient (IN) | payer MEDICARE ==
[~2020-05-16] VITALS: Ht 182.9 cm; Wt 72.6 kg
[~2020-05-16 15:07] MED LIST changes: +ACETIC ACID15 ML OT; +DICLOXACILLIN500 MG PO; +NEOMYCIN-POLYMY10 M1 OT
[2020-05-16 21:05] VITALS: BP 126/77
[2020-05-16 21:10] VITALS: BP 126/77
[2020-05-16] MEDS ORDERED: LACTULOSE SYRUP 20 GM/30 ML UDC PO PRN (21:15)
[2020-05-16 22:00] VITALS: BP 117/84
[2020-05-16] MEDS ORDERED: SODIUM CHLORIDE 0.9% 1000ML 2,000 ML ONE (22:21)
[2020-05-16] MEDS ORDERED: DEXTROSE 50% SYRINGE 50 ML IV PRN (22:45)
[2020-05-16 23:00] VITALS: BP 127/83
[2020-05-16] MEDS ORDERED: ALTEPLASE RECOMBINANT 2 MG/2 ML VIAL IV PRN (23:00)
[2020-05-17] VITALS (25 sets, daily range): BP systolic 101–166; BP diastolic 54–111
[2020-05-17] MEDS ORDERED: HEPARIN SOD (PORCINE) 1000 UNIT/ML SDV ONE (01:18)
[2020-05-17] MEDS ORDERED: HEPARIN SOD (PORCINE) 1000 UNIT/ML SDV IV PRN (06:45)
[2020-05-17] MEDS ORDERED: SODIUM CHLORIDE 0.9% 1000ML 2,000 ML IV PRN (06:45)
[2020-05-17] MEDS ORDERED: ALBUMIN 25% 25GM 100ML 0.25 GM/ML BTL IV PRN (06:45)
[2020-05-17] MEDS ORDERED: ALBUMIN 25% 12.5GM 0.25 GM/ML BTL IV PRN (06:45)
[2020-05-17] MEDS: INSULIN LISPRO 100 UNIT/1 ML 3ML VIAL SQ SCH ×4 (07:30→21:00)
[2020-05-17] MEDS ORDERED: INSULIN LISPRO 100 UNIT/1 ML 3ML VIAL SQ SCH (07:30)
[2020-05-17 08:32] LABS: BASOPHILS % 0.2 % (0.0-1.0); HEMATOCRIT 29.6 % (38.2-49.6); HEMOGLOBIN 9.4 g/dL (14.0-18.0); LYMPHOCYTES # (AUTO) 0.3 (1.0-3.2); LYMPHOCYTES % 6.3 % (18.0-39.1); MEAN CORPUSCULAR HEMOGLOBIN 28.4 pg (28-32); MEAN CORPUSCULAR HGB CONC 31.8 g/dL (31-35); MEAN CORPUSCULAR VOLUME 89.4 fL (81-99); MONOCYTES # (AUTO) 0.2 (0.2-0.8); MONOCYTES % 3.8 % (4.4-11.3); NEUTROPHILS # (AUTO) 4.4 (2.1-6.9); NEUTROPHILS % 88.9 % (38.7-80.0); PLATELET COUNT 149 x10e3/uL (140-360); RED BLOOD COUNT 3.31 x10e6/uL (4.3-5.7); RED CELL DISTRIBUTION WIDTH 14.8 % (11.7-14.4)
[2020-05-17 08:54] LABS: ALBUMIN 2.4 g/dL (3.5-5.0); ALBUMIN/GLOBULIN RATIO 0.5 (0.8-2.0); ANION GAP 23.3 mmol/L (8-16); CALCIUM 7.4 mg/dL (8.4-10.2); CREATININE, SERUM 8.57 mg/dL (0.72-1.25); POTASSIUM 4.3 mmol/L (3.5-5.1)
[2020-05-17] MEDS: [UNRECOGNIZED DRUG - OTHER] PO SCH (09:00)
[2020-05-17] MEDS: CIPROFLOXACIN/HYDROCORTISONE OTIC 10ML BTL LEFT EAR SCH ×2 (09:00→16:16)
[2020-05-17] MEDS: CINACALCET 30 MG TAB PO SCH ×3 (09:44→17:27)
[2020-05-17] MEDS: SEVELAMER CARBONATE 800 MG TAB PO SCH ×3 (09:44→17:27)
[2020-05-17] MEDS: METOPROLOL TARTRATE 50 MG TAB PO SCH ×2 (09:44→17:27)
[2020-05-17] MEDS: ASPIRIN 81 MG CHEW TAB PO SCH (09:44)
[2020-05-17] MEDS: GABAPENTIN 100 MG CAP PO SCH ×2 (09:45→17:27)
[2020-05-17] MEDS: PANTOPRAZOLE SOD 40 MG TABEC PO SCH (09:45)
[2020-05-17] MEDS: RIVAROXABAN 10 MG TABLET PO SCH (09:45)
[2020-05-17] MEDS: AMLODIPINE BESYLATE 10 MG TAB PO SCH (09:45)
[2020-05-17] MEDS ORDERED: CEFTRIAXONE SOD 1 GM in SODIUM CHLORIDE 0.9% 50ML 50 ML IV SCH (10:00)
[2020-05-17] MEDS ORDERED: MANNITOL 25% 12.5GM/50 ML VIAL IV PRN (11:45)
[2020-05-17] MEDS: DEXAMETHASONE SOD PHOS 10 MG/1 ML VIAL IV SCH (17:27)
[2020-05-17] MEDS: ALBUTEROL SULFATE HFA 8GM INHALATION AEROSOL INH SCH (19:00)
[2020-05-17] MEDS: INSULIN GLARGINE 100 UNITS/ML VIAL SQ SCH (21:00)
[2020-05-17] MEDS: ATORVASTATIN 40 MG TAB PO SCH (21:00)
[2020-05-17] MEDS ORDERED: PIPER-TAZ 3.375 GM 50 ML IV SCH (21:00)
[2020-05-17] MEDS ORDERED: VANCOMYCIN 1GM/NS 250 ML 250 ML IV ONE (21:00)
[2020-05-17] MEDS: PIPERACILLIN/TAZOBAC 3.375 GM in SODIUM CHLORIDE 0.9% 50ML 50 ML IV SCH (23:45)
[2020-05-18] VITALS (25 sets, daily range): BP systolic 99–148; BP diastolic 61–92
[2020-05-18 04:44] LABS: HEMATOCRIT 28.6 % (38.2-49.6); HEMOGLOBIN 8.6 g/dL (14.0-18.0); LYMPHOCYTES # (AUTO) 0.2 (1.0-3.2); LYMPHOCYTES % 4.9 % (18.0-39.1); MEAN CORPUSCULAR HEMOGLOBIN 28.1 pg (28-32); MEAN CORPUSCULAR HGB CONC 30.1 g/dL (31-35); MEAN CORPUSCULAR VOLUME 93.5 fL (81-99); MONOCYTES # (AUTO) 0.2 (0.2-0.8); MONOCYTES % 4.7 % (4.4-11.3); NEUTROPHILS % 89.5 % (38.7-80.0); PLATELET COUNT 167 x10e3/uL (140-360); RED BLOOD COUNT 3.06 x10e6/uL (4.3-5.7); RED CELL DISTRIBUTION WIDTH 14.8 % (11.7-14.4)
[2020-05-18 05:01] LABS: ANION GAP 25.2 mmol/L (8-16); CALCIUM 7.1 mg/dL (8.4-10.2); CREATININE, SERUM 6.53 mg/dL (0.72-1.25)
[2020-05-18 05:02] LABS: POTASSIUM 5.2 mmol/L (3.5-5.1)
[2020-05-18] MEDS: PIPERACILLIN/TAZOBAC 3.375 GM in SODIUM CHLORIDE 0.9% 50ML 50 ML IV SCH ×3 (06:00→17:03)
[2020-05-18] MEDS: ALBUTEROL SULFATE HFA 8GM INHALATION AEROSOL INH SCH (07:00)
[2020-05-18] MEDS: INSULIN LISPRO 100 UNIT/1 ML 3ML VIAL SQ SCH ×4 (07:30→20:50)
[2020-05-18] MEDS: CINACALCET 30 MG TAB PO SCH ×3 (07:30→17:02)
[2020-05-18] MEDS: SEVELAMER CARBONATE 800 MG TAB PO SCH ×3 (08:00→17:03)
[2020-05-18] MEDS: [UNRECOGNIZED DRUG - OTHER] PO SCH (09:00)
[2020-05-18] MEDS: CIPROFLOXACIN/HYDROCORTISONE OTIC 10ML BTL LEFT EAR SCH ×2 (09:00→16:45)
[2020-05-18] MEDS: ASPIRIN 81 MG CHEW TAB PO SCH (12:08)
[2020-05-18] MEDS: DEXAMETHASONE SOD PHOS 10 MG/1 ML VIAL IV SCH (12:08)
[2020-05-18] MEDS: GABAPENTIN 100 MG CAP PO SCH ×2 (12:08→17:03)
[2020-05-18] MEDS: RIVAROXABAN 10 MG TABLET PO SCH (12:08)
[2020-05-18] MEDS: PANTOPRAZOLE SOD 40 MG TABEC PO SCH (12:08)
[2020-05-18] MEDS: AMLODIPINE BESYLATE 10 MG TAB PO SCH (12:08)
[2020-05-18] MEDS: METOPROLOL TARTRATE 50 MG TAB PO SCH ×2 (12:08→17:03)
[2020-05-18] MEDS: COLLAGENASE 5 GM TUBE TP SCH (12:09)
[2020-05-18] MEDS ORDERED: REMDESIVIR 200MG/NS 100ML 200 MG in SODIUM CHLORIDE 0.9% 100 ML 100 ML IV ONE (17:00)
[2020-05-18] MEDS: BISACODYL 5 MG TAB EC PO PRN (17:09)
[2020-05-18] MEDS: ATORVASTATIN 40 MG TAB PO SCH (20:48)
[2020-05-18] MEDS: INSULIN GLARGINE 100 UNITS/ML VIAL SQ SCH (20:51)
[2020-05-19] VITALS (21 sets, daily range): BP systolic 86–150; BP diastolic 47–96
[2020-05-19 04:47] LABS: HEMATOCRIT 28.6 % (38.2-49.6); HEMOGLOBIN 8.8 g/dL (14.0-18.0); LYMPHOCYTES # (AUTO) 0.3 (1.0-3.2); LYMPHOCYTES % 3.6 % (18.0-39.1); MEAN CORPUSCULAR HEMOGLOBIN 28.7 pg (28-32); MEAN CORPUSCULAR HGB CONC 30.8 g/dL (31-35); MEAN CORPUSCULAR VOLUME 93.2 fL (81-99); MONOCYTES # (AUTO) 0.3 (0.2-0.8); MONOCYTES % 3.7 % (4.4-11.3); PLATELET COUNT 179 x10e3/uL (140-360); RED BLOOD COUNT 3.07 x10e6/uL (4.3-5.7); RED CELL DISTRIBUTION WIDTH 14.8 % (11.7-14.4)
[2020-05-19 05:06] LABS: ANION GAP 23.5 mmol/L (8-16); CREATININE, SERUM 8.16 mg/dL (0.72-1.25); POTASSIUM 5.5 mmol/L (3.5-5.1)
[2020-05-19 05:33] LABS: CALCIUM 6.6 mg/dL (8.4-10.2)
[2020-05-19] MEDS: PIPERACILLIN/TAZOBAC 3.375 GM in SODIUM CHLORIDE 0.9% 50ML 50 ML IV SCH ×4 (06:00→13:55)
[2020-05-19] MEDS: ALBUTEROL SULFATE HFA 8GM INHALATION AEROSOL INH SCH ×2 (07:00→19:20)
[2020-05-19 07:05] LABS: LYMPHOCYTES % (MANUAL) 1 % (19-48); MONOCYTES % (MANUAL) 3 % (3.4-9.0); NEUTROPHILS % (MANUAL) 96 % (40-74)
[2020-05-19 07:06] LABS: ANISOCYTOSIS SLIGHT; OVALOCYTES MANY; PLATELET ESTIMATE ADEQUATE; PLATELET MORPHOLOGY COMMENT NORMAL; RBC MORPHOLOGY COMMENT ABNORMAL
[2020-05-19 07:08] LABS: ELLIPTOCYTE, RBC SLIGHT
[2020-05-19] MEDS ORDERED: CALCIUM GLUCONATE 10% INJ 4.65 MEQ in SODIUM CHLORIDE 0.9% 50ML 50 ML IV ONE (07:30)
[2020-05-19] MEDS: INSULIN LISPRO 100 UNIT/1 ML 3ML VIAL SQ SCH ×4 (08:15→21:01)
[2020-05-19] MEDS: CIPROFLOXACIN/HYDROCORTISONE OTIC 10ML BTL LEFT EAR SCH ×2 (08:20→16:33)
[2020-05-19] MEDS: COLLAGENASE 5 GM TUBE TP SCH (08:21)
[2020-05-19] MEDS: CINACALCET 30 MG TAB PO SCH ×3 (08:30→16:34)
[2020-05-19] MEDS: DEXAMETHASONE SOD PHOS 10 MG/1 ML VIAL IV SCH (08:30)
[2020-05-19] MEDS: SEVELAMER CARBONATE 800 MG TAB PO SCH ×3 (08:30→16:39)
[2020-05-19] MEDS: ASPIRIN 81 MG CHEW TAB PO SCH (08:30)
[2020-05-19] MEDS: METOPROLOL TARTRATE 50 MG TAB PO SCH ×2 (08:31→16:39)
[2020-05-19] MEDS: AMLODIPINE BESYLATE 10 MG TAB PO SCH (08:31)
[2020-05-19] MEDS: GABAPENTIN 100 MG CAP PO SCH ×2 (08:31→16:39)
[2020-05-19] MEDS: RIVAROXABAN 10 MG TABLET PO SCH (08:31)
[2020-05-19] MEDS: PANTOPRAZOLE SOD 40 MG TABEC PO SCH (08:31)
[2020-05-19] MEDS: [UNRECOGNIZED DRUG - OTHER] PO SCH (09:00)
[2020-05-19] MEDS ORDERED: CALCIUM GLUCONATE 10% INJ 0.465 MEQ/ML VIAL ONE (13:55)
[2020-05-19] MEDS: DEXAMETHASONE 4 MG TAB PO SCH ×2 (14:00→16:34)
[2020-05-19] MEDS ORDERED: SODIUM CHLORIDE 0.9% 50ML 50 ML ONE (14:02)
[2020-05-19] MEDS: REMDESIVIR 100MG/NS 100ML 100 MG in SODIUM CHLORIDE 0.9% 100 ML 100 ML IV SCH (16:34)
[2020-05-19] MEDS: ATORVASTATIN 40 MG TAB PO SCH (21:00)
[2020-05-19] MEDS: INSULIN GLARGINE 100 UNITS/ML VIAL SQ SCH (21:01)
[2020-05-20] VITALS (23 sets, daily range): BP systolic 102–153; BP diastolic 65–84
[2020-05-20 05:24] LABS: BASOPHILS % 0.1 % (0.0-1.0); HEMOGLOBIN 9.4 g/dL (14.0-18.0); LYMPHOCYTES # (AUTO) 0.8 (1.0-3.2); LYMPHOCYTES % 8.1 % (18.0-39.1); MEAN CORPUSCULAR HEMOGLOBIN 28.1 pg (28-32); MEAN CORPUSCULAR HGB CONC 30.3 g/dL (31-35); MEAN CORPUSCULAR VOLUME 92.8 fL (81-99); MONOCYTES # (AUTO) 0.7 (0.2-0.8); NEUTROPHILS # (AUTO) 7.7 (2.1-6.9); NEUTROPHILS % 83.4 % (38.7-80.0); PLATELET COUNT 232 x10e3/uL (140-360); RED BLOOD COUNT 3.34 x10e6/uL (4.3-5.7); RED CELL DISTRIBUTION WIDTH 14.8 % (11.7-14.4)
[2020-05-20 05:44] LABS: ALBUMIN 2.5 g/dL (3.5-5.0); ALBUMIN/GLOBULIN RATIO 0.5 (0.8-2.0); ANION GAP 18.9 mmol/L (8-16); CREATININE, SERUM 5.19 mg/dL (0.72-1.25); POTASSIUM 3.9 mmol/L (3.5-5.1)
[2020-05-20] MEDS: ALBUTEROL SULFATE HFA 8GM INHALATION AEROSOL INH SCH ×2 (07:25→19:40)
[2020-05-20] MEDS: INSULIN LISPRO 100 UNIT/1 ML 3ML VIAL SQ SCH ×4 (07:30→21:25)
[2020-05-20] MEDS: [UNRECOGNIZED DRUG - OTHER] PO SCH (08:03)
[2020-05-20] MEDS: SEVELAMER CARBONATE 800 MG TAB PO SCH ×3 (08:03→17:17)
[2020-05-20] MEDS: COLLAGENASE 5 GM TUBE TP SCH (08:03)
[2020-05-20] MEDS: CINACALCET 30 MG TAB PO SCH ×3 (08:03→17:16)
[2020-05-20] MEDS: CIPROFLOXACIN/HYDROCORTISONE OTIC 10ML BTL LEFT EAR SCH ×2 (08:03→17:17)
[2020-05-20] MEDS: ASPIRIN 81 MG CHEW TAB PO SCH (08:03)
[2020-05-20] MEDS: AMLODIPINE BESYLATE 10 MG TAB PO SCH (08:04)
[2020-05-20] MEDS: PANTOPRAZOLE SOD 40 MG TABEC PO SCH (08:04)
[2020-05-20] MEDS: METOPROLOL TARTRATE 50 MG TAB PO SCH ×2 (08:04→17:17)
[2020-05-20] MEDS: GABAPENTIN 100 MG CAP PO SCH ×2 (08:04→17:17)
[2020-05-20] MEDS: RIVAROXABAN 10 MG TABLET PO SCH (08:04)
[2020-05-20] MEDS: ACETAMINOPHEN/CODEINE 300MG - 30MG TAB PO PRN (08:12)
[2020-05-20] MEDS: DEXAMETHASONE 4 MG TAB PO SCH (11:15)
[2020-05-20] MEDS: REMDESIVIR 100MG/NS 100ML 100 MG in SODIUM CHLORIDE 0.9% 100 ML 100 ML IV SCH (17:17)
[2020-05-20] MEDS: ATORVASTATIN 40 MG TAB PO SCH (21:21)
[2020-05-20] MEDS: INSULIN GLARGINE 100 UNITS/ML VIAL SQ SCH (21:26)
[2020-05-21] VITALS (11 sets, daily range): BP systolic 88–127; BP diastolic 69–84
[2020-05-21 05:51] LABS: EOSINOPHILS % 0.1 % (0.0-6.0); HEMATOCRIT 31.7 % (38.2-49.6); HEMOGLOBIN 9.6 g/dL (14.0-18.0); LYMPHOCYTES # (AUTO) 0.5 (1.0-3.2); LYMPHOCYTES % 7.3 % (18.0-39.1); MEAN CORPUSCULAR HEMOGLOBIN 27.7 pg (28-32); MEAN CORPUSCULAR HGB CONC 30.3 g/dL (31-35); MEAN CORPUSCULAR VOLUME 91.6 fL (81-99); MONOCYTES # (AUTO) 0.6 (0.2-0.8); NEUTROPHILS # (AUTO) 5.8 (2.1-6.9); NEUTROPHILS % 83.9 % (38.7-80.0); PLATELET COUNT 225 x10e3/uL (140-360); RED BLOOD COUNT 3.46 x10e6/uL (4.3-5.7); RED CELL DISTRIBUTION WIDTH 14.7 % (11.7-14.4)
[2020-05-21 06:10] LABS: ALBUMIN 2.2 g/dL (3.5-5.0); ALBUMIN/GLOBULIN RATIO 0.5 (0.8-2.0); ANION GAP 23.1 mmol/L (8-16); CREATININE, SERUM 7.13 mg/dL (0.72-1.25); POTASSIUM 5.1 mmol/L (3.5-5.1)
[2020-05-21 06:15] LABS: CALCIUM 6.5 mg/dL (8.4-10.2)
[2020-05-21] MEDS: ALBUTEROL SULFATE HFA 8GM INHALATION AEROSOL INH SCH ×2 (07:00→21:07)
[2020-05-21] MEDS ORDERED: CALCIUM GLUCONATE 10% INJ 9.3 MEQ in SODIUM CHLORIDE 0.9% 100 ML 100 ML IV ONE (07:00)
[2020-05-21] MEDS: SEVELAMER CARBONATE 800 MG TAB PO SCH ×3 (08:17→17:15)
[2020-05-21] MEDS: CINACALCET 30 MG TAB PO SCH ×3 (08:19→16:00)
[2020-05-21] MEDS: INSULIN LISPRO 100 UNIT/1 ML 3ML VIAL SQ SCH ×4 (08:22→21:00)
[2020-05-21] MEDS: GABAPENTIN 100 MG CAP PO SCH ×2 (08:23→16:00)
[2020-05-21] MEDS: ASPIRIN 81 MG CHEW TAB PO SCH (08:23)
[2020-05-21] MEDS: RIVAROXABAN 10 MG TABLET PO SCH (08:23)
[2020-05-21] MEDS: PANTOPRAZOLE SOD 40 MG TABEC PO SCH (08:23)
[2020-05-21] MEDS: METOPROLOL TARTRATE 50 MG TAB PO SCH ×2 (08:25→17:15)
[2020-05-21] MEDS: AMLODIPINE BESYLATE 10 MG TAB PO SCH (08:25)
[2020-05-21] MEDS: CIPROFLOXACIN/HYDROCORTISONE OTIC 10ML BTL LEFT EAR SCH ×2 (08:30→17:15)
[2020-05-21] MEDS: [UNRECOGNIZED DRUG - OTHER] PO SCH (08:30)
[2020-05-21] MEDS: COLLAGENASE 5 GM TUBE TP SCH (08:31)
[2020-05-21] MEDS: DEXAMETHASONE 4 MG TAB PO SCH (16:00)
[2020-05-21] MEDS: REMDESIVIR 100MG/NS 100ML 100 MG in SODIUM CHLORIDE 0.9% 100 ML 100 ML IV SCH (16:00)
[2020-05-21] MEDS ORDERED: SODIUM CHLORIDE 0.9% 250ML 250 ML ONE (16:43)
[2020-05-21] MEDS: ACETAMINOPHEN/CODEINE 300MG - 30MG TAB PO PRN (16:45)
[2020-05-21] MEDS: INSULIN GLARGINE 100 UNITS/ML VIAL SQ SCH (21:00)
[2020-05-21] MEDS: ATORVASTATIN 40 MG TAB PO SCH (21:00)
[2020-05-22] VITALS (8 sets, daily range): BP systolic 79–123; BP diastolic 50–83
[2020-05-22] MEDS ORDERED: SODIUM CHLORIDE 0.9% 250ML 250 ML IV ONE (02:15)
[2020-05-22] MEDS ORDERED: SODIUM CHLORIDE 0.9% 250ML 250 ML ONE (02:18)
[2020-05-22 06:16] LABS: BASOPHILS % 0.1 % (0.0-1.0); EOSINOPHILS % 0.2 % (0.0-6.0); HEMATOCRIT 32.2 % (38.2-49.6); HEMOGLOBIN 9.8 g/dL (14.0-18.0); LYMPHOCYTES # (AUTO) 0.6 (1.0-3.2); MEAN CORPUSCULAR HEMOGLOBIN 28.4 pg (28-32); MEAN CORPUSCULAR HGB CONC 30.4 g/dL (31-35); MEAN CORPUSCULAR VOLUME 93.3 fL (81-99); MONOCYTES # (AUTO) 0.8 (0.2-0.8); MONOCYTES % 9.4 % (4.4-11.3); NEUTROPHILS # (AUTO) 6.8 (2.1-6.9); PLATELET COUNT 211 x10e3/uL (140-360); RED BLOOD COUNT 3.45 x10e6/uL (4.3-5.7); RED CELL DISTRIBUTION WIDTH 14.6 % (11.7-14.4)
[2020-05-22 06:37] LABS: CREATININE, SERUM 8.46 mg/dL (0.72-1.25)
[2020-05-22 06:48] LABS: CALCIUM 6.6 mg/dL (8.4-10.2)
[2020-05-22] MEDS: ALBUTEROL SULFATE HFA 8GM INHALATION AEROSOL INH SCH ×2 (07:00→21:53)
[2020-05-22] MEDS: INSULIN LISPRO 100 UNIT/1 ML 3ML VIAL SQ SCH ×4 (07:30→20:54)
[2020-05-22] MEDS: CINACALCET 30 MG TAB PO SCH ×3 (08:00→16:30)
[2020-05-22] MEDS: SEVELAMER CARBONATE 800 MG TAB PO SCH ×3 (08:23→17:42)
[2020-05-22] MEDS: PANTOPRAZOLE SOD 40 MG TABEC PO SCH (09:00)
[2020-05-22] MEDS: GABAPENTIN 100 MG CAP PO SCH ×2 (09:00→17:42)
[2020-05-22] MEDS: ASPIRIN 81 MG CHEW TAB PO SCH (09:00)
[2020-05-22] MEDS: [UNRECOGNIZED DRUG - OTHER] PO SCH (09:00)
[2020-05-22] MEDS: CIPROFLOXACIN/HYDROCORTISONE OTIC 10ML BTL LEFT EAR SCH ×2 (09:27→17:48)
[2020-05-22] MEDS: COLLAGENASE 5 GM TUBE TP SCH (10:26)
[2020-05-22] MEDS: ACETAMINOPHEN/CODEINE 300MG - 30MG TAB PO PRN (15:00)
[2020-05-22] MEDS ORDERED: ALBUMIN 25% 12.5GM 0.25 GM/ML BTL IV PRN (15:15)
[2020-05-22] MEDS: CARVEDILOL 3.125 MG TAB PO SCH (17:00)
[2020-05-22] MEDS: REMDESIVIR 100MG/NS 100ML 100 MG in SODIUM CHLORIDE 0.9% 100 ML 100 ML IV SCH (17:42)
[2020-05-22] MEDS: PREDNISONE 20 MG TAB PO SCH (17:42)
[2020-05-22] MEDS: DIPHENHYDRAMINE HCL 25 MG CAP PO SCH (20:40)
[2020-05-22] MEDS: ATORVASTATIN 40 MG TAB PO SCH (20:40)
[2020-05-22] MEDS: INSULIN GLARGINE 100 UNITS/ML VIAL SQ SCH (20:54)
[2020-05-23] VITALS (7 sets, daily range): BP systolic 106–133; BP diastolic 64–108
[2020-05-23] MEDS: ASPIRIN 81 MG CHEW TAB PO SCH (07:18)
[2020-05-23] MEDS: FAMOTIDINE 20 MG TAB PO SCH (07:18)
[2020-05-23] MEDS: INSULIN LISPRO 100 UNIT/1 ML 3ML VIAL SQ SCH ×4 (07:30→20:51)
[2020-05-23] MEDS: ALBUTEROL SULFATE HFA 8GM INHALATION AEROSOL INH SCH ×2 (07:37→19:00)
[2020-05-23] MEDS ORDERED: HEPARIN SOD/SOD CHLORIDE 2,000 ML ONE (08:23)
[2020-05-23] MEDS ORDERED: IOPAMIDOL 370 MG/ML 200 ML INFUS..BTL INJ ONE (08:23)
[2020-05-23] MEDS ORDERED: LIDOCAINE HCL 2% LOCAL 20 ML VIAL ONE (08:23)
[2020-05-23] MEDS ORDERED: SODIUM CHLORIDE 0.9% 1000ML 1,000 ML ONE (08:23)
[2020-05-23] MEDS ORDERED: FENTANYL CITRATE/PF 100MCG/2 ML INJ ONE (08:23)
[2020-05-23] MEDS ORDERED: MIDAZOLAM HCL 2 MG/2 ML VIAL ONE (08:23)
[2020-05-23] MEDS ORDERED: HEPARIN SOD (PORCINE) 1000 UNIT/ML 30ML ONE (08:24)
[2020-05-23] MEDS ORDERED: NITROGLYCERIN/D5W 200 MCG/ML 250 ML ONE (08:24)
[2020-05-23] MEDS ORDERED: METHYLPREDNISOLONE SOD SUCC 125 MG/2ML VIAL ONE (08:25)
[2020-05-23] MEDS: SEVELAMER CARBONATE 800 MG TAB PO SCH ×3 (10:29→17:01)
[2020-05-23] MEDS: [UNRECOGNIZED DRUG - OTHER] PO SCH (10:29)
[2020-05-23] MEDS: CIPROFLOXACIN/HYDROCORTISONE OTIC 10ML BTL LEFT EAR SCH ×2 (10:29→17:01)
[2020-05-23] MEDS: DIPHENHYDRAMINE HCL 25 MG CAP PO SCH ×2 (10:29→20:49)
[2020-05-23] MEDS: CINACALCET 30 MG TAB PO SCH ×2 (10:29→12:23)
[2020-05-23] MEDS: PANTOPRAZOLE SOD 40 MG TABEC PO SCH (10:30)
[2020-05-23] MEDS: CARVEDILOL 3.125 MG TAB PO SCH ×2 (10:30→17:02)
[2020-05-23] MEDS: GABAPENTIN 100 MG CAP PO SCH ×2 (10:30→17:01)
[2020-05-23] MEDS: PREDNISONE 20 MG TAB PO SCH (10:30)
[2020-05-23 14:11] LABS: ANION GAP 22.3 mmol/L (8-16); CREATININE, SERUM 5.7 mg/dL (0.72-1.25); POTASSIUM 5.3 mmol/L (3.5-5.1)
[2020-05-23 14:17] LABS: CALCIUM 6.4 mg/dL (8.4-10.2)
[2020-05-23] MEDS ORDERED: SOD POLYSTYRENE SULFONATE SUSP 15 GM/60 ML BTL PO ONE (15:30)
[2020-05-23] MEDS: COLLAGENASE 5 GM TUBE TP SCH (16:52)
[2020-05-23] MEDS: CALCIUM CARBONATE 500 MG CHEWABLE TABS PO SCH (17:01)
[2020-05-23] MEDS: REMDESIVIR 100MG/NS 100ML 100 MG in SODIUM CHLORIDE 0.9% 100 ML 100 ML IV SCH (17:51)
[2020-05-23] MEDS: ATORVASTATIN 40 MG TAB PO SCH (20:49)
[2020-05-23] MEDS: INSULIN GLARGINE 100 UNITS/ML VIAL SQ SCH (20:51)
[2020-05-24] VITALS (8 sets, daily range): BP systolic 102–129; BP diastolic 60–83
[2020-05-24 06:10] LABS: HEMATOCRIT 31.6 % (38.2-49.6); HEMOGLOBIN 9.6 g/dL (14.0-18.0); MEAN CORPUSCULAR HEMOGLOBIN 27.9 pg (28-32); MEAN CORPUSCULAR HGB CONC 30.4 g/dL (31-35); MEAN CORPUSCULAR VOLUME 91.9 fL (81-99); PLATELET COUNT 269 x10e3/uL (140-360); RED BLOOD COUNT 3.44 x10e6/uL (4.3-5.7); RED CELL DISTRIBUTION WIDTH 14.6 % (11.7-14.4)
[2020-05-24] MEDS: ALBUTEROL SULFATE HFA 8GM INHALATION AEROSOL INH SCH ×2 (08:24→19:00)
[2020-05-24] MEDS: DIPHENHYDRAMINE HCL 25 MG CAP PO SCH ×2 (08:47→21:00)
[2020-05-24] MEDS: SEVELAMER CARBONATE 800 MG TAB PO SCH ×3 (08:47→17:12)
[2020-05-24] MEDS: [UNRECOGNIZED DRUG - OTHER] PO SCH (08:47)
[2020-05-24] MEDS: ASPIRIN 81 MG CHEW TAB PO SCH (08:47)
[2020-05-24] MEDS: FAMOTIDINE 20 MG TAB PO SCH (08:48)
[2020-05-24] MEDS: PREDNISONE 20 MG TAB PO SCH (08:48)
[2020-05-24] MEDS: PANTOPRAZOLE SOD 40 MG TABEC PO SCH (08:48)
[2020-05-24] MEDS: CALCITRIOL 0.25 MCG CAP PO SCH (08:48)
[2020-05-24] MEDS: CARVEDILOL 3.125 MG TAB PO SCH ×2 (08:48→17:12)
[2020-05-24] MEDS: COLLAGENASE 5 GM TUBE TP SCH (08:48)
[2020-05-24] MEDS: CALCIUM CARBONATE 500 MG CHEWABLE TABS PO SCH ×2 (08:48→17:12)
[2020-05-24] MEDS: GABAPENTIN 100 MG CAP PO SCH ×2 (08:48→17:12)
[2020-05-24] MEDS: INSULIN LISPRO 100 UNIT/1 ML 3ML VIAL SQ SCH ×4 (08:53→21:00)
[2020-05-24] MEDS: BISACODYL 5 MG TAB EC PO PRN (10:00)
[2020-05-24] MEDS ORDERED: SODIUM CHLORIDE 0.9% 250ML 750 ML IV PRN (13:00)
[2020-05-24] MEDS ORDERED: HEPARIN SOD (PORCINE) 1000 UNIT/ML SDV IV PRN (13:00)
[2020-05-24] MEDS: ATORVASTATIN 40 MG TAB PO SCH (21:00)
[2020-05-24] MEDS: INSULIN GLARGINE 100 UNITS/ML VIAL SQ SCH (21:00)
[2020-05-25 00:35] VITALS: BP 114/71
[2020-05-25 05:26] VITALS: BP 126/78
[2020-05-25] MEDS: ALBUTEROL SULFATE HFA 8GM INHALATION AEROSOL INH SCH (07:32)
[2020-05-25 08:40] VITALS: BP 140/83
[2020-05-25 08:41] VITALS: BP 140/83
[2020-05-25] MEDS: [UNRECOGNIZED DRUG - OTHER] PO SCH (09:00)
[2020-05-25] MEDS: CARVEDILOL 3.125 MG TAB PO SCH ×2 (09:03→16:04)
[2020-05-25] MEDS: CALCIUM CARBONATE 500 MG CHEWABLE TABS PO SCH ×2 (09:03→16:04)
[2020-05-25] MEDS: SEVELAMER CARBONATE 800 MG TAB PO SCH ×3 (09:03→16:04)
[2020-05-25] MEDS: ASPIRIN 81 MG CHEW TAB PO SCH (09:03)
[2020-05-25] MEDS: CALCITRIOL 0.25 MCG CAP PO SCH (09:03)
[2020-05-25] MEDS: FAMOTIDINE 20 MG TAB PO SCH (09:04)
[2020-05-25] MEDS: PANTOPRAZOLE SOD 40 MG TABEC PO SCH (09:04)
[2020-05-25] MEDS: GABAPENTIN 100 MG CAP PO SCH ×2 (09:04→16:04)
[2020-05-25] MEDS: COLLAGENASE 5 GM TUBE TP SCH (10:29)
[2020-05-25] MEDS: INSULIN LISPRO 100 UNIT/1 ML 3ML VIAL SQ SCH ×3 (10:44→16:02)
[2020-05-25] MEDS ORDERED: ACETAMINOPHEN 325 MG TAB PO PRN (12:15)
[2020-05-25 20:07] VITALS: BP 91/55
[2020-05-25] MEDS: ATORVASTATIN 40 MG TAB PO SCH (20:30)
== END 2020-05-25 21:20 | DRG 177 ==
LOC: FSED 15:45 → ERHOLD 17:07 → ICU 20:41 → MED/SURG3 05-21 14:00
PROVIDERS: ADMIT Internal Medicine; ATTEND Internal Medicine
PROC: 5A1D70Z Performance of Urinary Filtration, Intermittent, Less than 6 Hours Per Day (ICD-10-PCS; 2020-05-16)
PROC: 8E0ZXY6 Isolation (ICD-10-PCS; 2020-05-16)
PROC: 02HV33Z Insertion of Infusion Device into Superior Vena Cava, Percutaneous Approach (ICD-10-PCS; principal; 2020-05-17)
PROC: XW043E5 Introduction of Remdesivir Anti-infective into Central Vein, Percutaneous Approach, New Technology Group 5 (ICD-10-PCS; 2020-05-18)
PROC: 4A023N7 Measurement of Cardiac Sampling and Pressure, Left Heart, Percutaneous Approach (ICD-10-PCS; 2020-05-23)
PROC: B2111ZZ Fluoroscopy of Multiple Coronary Arteries using Low Osmolar Contrast (ICD-10-PCS; 2020-05-23)
PROC: B2151ZZ Fluoroscopy of Left Heart using Low Osmolar Contrast (ICD-10-PCS; 2020-05-23)
DX: U07.1 COVID-19 (principal); J12.82 Pneumonia due to coronavirus disease 2019; N18.6 End stage renal disease; J96.01 Acute respiratory failure with hypoxia; I50.43 Acute on chronic combined systolic (congestive) and diastolic (congestive) heart failure; J15.9 Unspecified bacterial pneumonia; I13.2 Hypertensive heart and chronic kidney disease with heart failure and with stage 5 chronic kidney disease, or end stage renal disease; E03.9 Hypothyroidism, unspecified; E78.5 Hyperlipidemia, unspecified; E11.22 Type 2 diabetes mellitus with diabetic chronic kidney disease; Z99.2 Dependence on renal dialysis; I25.10 Atherosclerotic heart disease of native coronary artery without angina pectoris; Z89.511 Acquired absence of right leg below knee; Z89.432 Acquired absence of left foot; D63.8 Anemia in other chronic diseases classified elsewhere; I25.5 Ischemic cardiomyopathy; E11.51 Type 2 diabetes mellitus with diabetic peripheral angiopathy without gangrene; I48.0 Paroxysmal atrial fibrillation
CPT/HCPCS: 36415; 36556; 71045; 74470; 76937; 77001; 80048; 80053; 82948; 83880; 85007; 85025; 85027; 86704; 86707; 87340; 90962; 93005; 93306; 93458; 97139; 99152; 99251; 99285; C1769; J0610; J0696; J1100; J1644; J1815; J2001; J2250; J2543; J2930; J2997; J3010; J3370; J7030; J7050; J7512; P9047; Q9967; U0002

== ENCOUNTER 2020-07-27 20:30 | Emergency (ER) | payer MEDICARE ==
[~2020-07-27] VITALS: Ht 182.9 cm; Wt 72.6 kg
[2020-07-27] MEDS ORDERED: HEPARIN SOD (PORCINE) 1000 UNIT/ML 10ML MDV IV ONE (21:15)
== END 2020-07-27 21:07 | disposition home or self-care (01) ==
LOC: ER 21:02
DX: Z45.2 Encounter for adjustment and management of vascular access device (principal); I12.0 Hypertensive chronic kidney disease with stage 5 chronic kidney disease or end stage renal disease; E11.22 Type 2 diabetes mellitus with diabetic chronic kidney disease; N18.6 End stage renal disease; Z99.2 Dependence on renal dialysis; Z89.511 Acquired absence of right leg below knee
CPT/HCPCS: 99282

== ENCOUNTER 2021-07-18 16:25 | Emergency (ER) | payer MEDICARE ==
[~2021-07-18] VITALS: Ht 182.9 cm; Wt 72.6 kg
[2021-07-18] MEDS ORDERED: DEXTROSE 50% SYRINGE 50 ML IV ONE ×2 (16:45)
[2021-07-18] MEDS ORDERED: DEXTROSE 50% SYRINGE 50 ML IV STA (16:45)
[2021-07-18 16:58] LABS: BASOPHILS % 0.5 % (0.0-1.0); EOSINOPHILS # (AUTO) 0.8 (0.0-0.4); EOSINOPHILS % 12.8 % (0.0-6.0); HEMATOCRIT 28.1 % (38.2-49.6); HEMOGLOBIN 8.7 g/dL (14.0-18.0); LYMPHOCYTES # (AUTO) 0.7 (1.0-3.2); LYMPHOCYTES % 11.6 % (18.0-39.1); MEAN CORPUSCULAR HEMOGLOBIN 31.5 pg (28-32); MEAN CORPUSCULAR VOLUME 101.8 fL (81-99); MONOCYTES # (AUTO) 0.3 (0.2-0.8); MONOCYTES % 4.2 % (4.4-11.3); NEUTROPHILS # (AUTO) 4.5 (2.1-6.9); NEUTROPHILS % 70.4 % (38.7-80.0); PLATELET COUNT 174 x10e3/uL (140-360); RED BLOOD COUNT 2.76 x10e6/uL (4.3-5.7); RED CELL DISTRIBUTION WIDTH 14.6 % (11.7-14.4)
[2021-07-18 17:18] LABS: ALBUMIN/GLOBULIN RATIO 0.7 (0.8-2.0); ALKALINE PHOSPHATASE 135 IU/L (40-150); ANION GAP 16.5 mmol/L (8-16); BLOOD UREA NITROGEN 36 mg/dL (7-26); BUN/CREATININE RATIO 6 (6-25); CALCIUM 8.2 mg/dL (8.4-10.2); CARBON DIOXIDE 27 mmol/L (22-29); CHLORIDE 103 mmol/L (98-107); CREATININE, SERUM 5.76 mg/dL (0.72-1.25); EST GLOMERULAR FILTRATION RATE 12 ML/MIN (60-); GLUCOSE 74 mg/dL (74-118); POTASSIUM 3.5 mmol/L (3.5-5.1); SODIUM 143 mmol/L (136-145)
[2021-07-18 17:22] LABS: ALANINE AMINOTRANSFERASE < 6 IU/L (0-55)
[2021-07-18] MEDS ORDERED: LEVETIRACETAM 500MG/5ML VIAL 500 MG in SODIUM CHLORIDE 0.9% 100 ML IV SCH (19:45)
== END 2021-07-18 22:12 | disposition other institution (70) ==
LOC: ER 16:51
DX: E11.649 Type 2 diabetes mellitus with hypoglycemia without coma (principal); I12.0 Hypertensive chronic kidney disease with stage 5 chronic kidney disease or end stage renal disease; E11.22 Type 2 diabetes mellitus with diabetic chronic kidney disease; N18.6 End stage renal disease; G40.909 Epilepsy, unspecified, not intractable, without status epilepticus; Z20.822 Contact with and (suspected) exposure to COVID-19; R94.31 Abnormal electrocardiogram [ECG] [EKG]
CPT/HCPCS: 36415; 70450; 80053; 84484; 85025; 93005; 99284; J1953; J7050; J7799; U0002